=== PATIENT | female | born 1995 | race Caucasian/White ===

== ENCOUNTER 2018-05-15 14:00 | Inpatient (IN) | payer OTHER ==
[~2018-05-15] VITALS: Ht 165.1 cm; Wt 77.1 kg
[2018-05-15] MEDS ORDERED: UNOBMED (14:15)
[2018-05-15 14:20] VITALS: BP_SYST 111; BP_SYST 142; BP_DIAS 49; BP_DIAS 58
--- NOTE | 2018-05-15 14:20 | NUR ---
ED Nurse Note: BROUGHT IN BY PT'S AUNT DUE TO OPEN WOUND ON LEFT AXILLARY- PER PT, SHE WAS SENT BY HER FOR PRE OP SURGERY SCHEDULED T[place]OR[place] AT [facility]. A/OX4. DRESSING WAS ALREADY APPLIED AT THE LEFT AXILLARY.
--- NOTE | 2018-05-15 14:55 | Emergency Room Report ---
History of Present Illness General Chief Complaint: General Complaint Source: Patient Present Illness HPI 22-year-old female presenting with left arm abscess. She has struggled with hidradenitis superior T5 for the last 2 years. She's had 3 surgeries, all have been outpatient with the mother plastic surgeon. She saw who recommended surgery. She has already finished courses of antibiotics in the past, nothing has worked. She takes oxycodone at home which has not been helping with the pain. No fever no chills. She has a history of Crohn's disease. Allergies: Coded Allergies: AZATHIOPRINE (Verified Allergy, Unknown, 05/15/18) DOCUSATE (Verified Allergy, Unknown, 05/15/18) ok for oral LATEX (Verified Allergy, Unknown, 05/15/18) VANCOMYCIN (Verified Allergy, Unknown, 05/15/18) Uncoded Allergies: IODINE CONTRAST (Allergy, Unknown, 05/15/18) TAPE (Allergy, Unknown, 05/15/18) Patient History Past Medical History: see triage record Past Surgical History: none, other - bowel resection, incision and drainages Pertinent Family History: none Last Menstrual Period: 04/16/18 Immunizations: UTD Reviewed Nursing Documentation: PMH: Agreed; PSxH: Agreed Nursing Documentation-PMH Past Medical History: No History, Except For Review of Systems All Other Systems: negative except mentioned in HPI Physical Exam Vital Signs Date Time Temp Pulse Resp B/P (MAP) Pulse Ox O2 Delivery O2 Flow Rate FiO2 05/15/18 14:11 98.2 98 18 106/72 96 Room Air Sp02 EP Interpretation: reviewed, normal General Appearance: alert, GCS 15, non-toxic, moderate distress Head: normocephalic, atraumatic Eyes: bilateral eye normal inspection, bilateral eye PERRL, bilateral eye EOMI ENT: normal ENT inspection, normal pharynx, normal voice, moist mucus membranes Neck: normal inspection, full range of motion, supple Respiratory: normal inspection, lungs clear, normal breath sounds, no respiratory distress, no retraction, no wheezing, speaking full sentences, chest symmetrical Cardiovascular #1: normal inspection, regular rate, rhythm, no edema, normal capillary refill Cardiovascular #2: 2+ radial (R), 2+ radial (L) Gastrointestinal: normal inspection, non tender, soft, non-distended, no guarding Musculoskeletal: normal inspection, back normal, normal range of motion, non- tender Neurologic: normal inspection, alert, oriented x3, responsive, motor strength/ tone normal, sensory intact, normal gait, speech normal Psychiatric: normal inspection, judgement/insight normal, memory normal Skin: normal color, warm/dry, well hydrated, normal turgor, other - Under left arm their notes to be erythema, induration, some drainage Medical Decision Making Diagnostic Impression: Primary Impression: Hidradenitis suppurativa of left axilla ER Course 22-year-old female with hidradenitis suppurativa here for pain Patient will be getting surgery tomorrow Plan: Obtain labs, ua, EKG, CXR Pain control ER course: Patient has been monitored during ED stay, HD stable Disposition: Patient is to be admitted to [facility] D/W hospitalist Dr Alonso covering for Dr Cabrera Please note that this Emergency Department Report was dictated using [employer] worker technology software, occasionally this can lead to erroneous entry secondary to interpretation by the dictation equipment. Rhythm Strip EP Interpretation: Yes Rate: 80 Rhythm: NSR, no PVCs, no ectopy Laboratory Tests Test 05/15/18 14:35 White Blood Count 10.2 K/UL (4.8-10.8) Red Blood Count 5.00 M/UL (4.20-5.40) Hemoglobin 14.2 G/DL (12.0-16.0) Hematocrit 43.4 % (37.0-47.0) Mean Corpuscular Volume 87 FL (80-99) Mean Corpuscular Hemoglobin 28.4 PG (27.0-31.0) Mean Corpuscular Hemoglobin Concent 32.8 G/DL (32.0-36.0) Red Cell Distribution Width 12.4 % (11.6-14.8) Platelet Count 312 K/UL (150-450) Mean Platelet Volume 6.2 FL (6.5-10.1) L Neutrophils (%) (Auto) 59.8 % (45.0-75.0) Lymphocytes (%) (Auto) 33.0 % (20.0-45.0) Monocytes (%) (Auto) 6.0 % (1.0-10.0) Eosinophils (%) (Auto) 0.5 % (0.0-3.0) Basophils (%) (Auto) 0.8 % (0.0-2.0) Prothrombin Time 10.7 SEC (9.30-11.50) Prothrombin Time INR 1.0 (0.9-1.1) PTT 29 SEC (23-33) Urine Color Yellow Urine Appearance Cloudy Urine pH 5 (4.5-8.0) Urine Specific [place] 1.025 (1.005-1.035) Urine Protein 1+ (NEGATIVE) H Urine Glucose (UA) Negative (NEGATIVE) Urine Ketones Negative (NEGATIVE) Urine Blood 3+ (NEGATIVE) H Urine Nitrite Negative (NEGATIVE) Urine Bilirubin Negative (NEGATIVE) Urine Urobilinogen Normal MG/DL (0.0-1.0) Urine Leukocyte Esterase 2+ (NEGATIVE) H Urine RBC 10-15 /HPF (0 - 2) H Urine WBC 2-4 /HPF (0 - 2) Urine Squamous Epithelial Cells Many /LPF (NONE/OCC) H Urine Bacteria Many /HPF (NONE) H Urine HCG, Qualitative Negative (NEGATIVE) Sodium Level 138 MMOL/L (136-145) Potassium Level 3.9 MMOL/L (3.5-5.1) Chloride Level 103 MMOL/L (98-107) Carbon Dioxide Level 25 MMOL/L (21-32) Anion Gap 10 mmol/L (5-15) Blood Urea Nitrogen 15 mg/dL (7-18) Creatinine 1.0 MG/DL (0.55-1.30) Estimate Glomerular Filtration Rate > 60 mL/min (>60) Glucose Level 116 MG/DL (74-106) H Calcium Level 8.8 MG/DL (8.5-10.1) Total Bilirubin 0.4 MG/DL (0.2-1.0) Aspartate Amino Transferase (AST) 11 U/L (15-37) L Alanine Aminotransferase (ALT) 18 U/L (12-78) Alkaline Phosphatase 65 U/L (46-116) Total Protein 7.6 G/DL (6.4-8.2) Albumin 3.5 G/DL (3.4-5.0) Globulin 4.1 g/dL Albumin/Globulin Ratio 0.9 (1.0-2.7) L Lipase 115 U/L (73-393) Last Vital Signs Date Time Temp Pulse Resp B/P (MAP) Pulse Ox O2 Delivery O2 Flow Rate FiO2 05/15/18 14:20 102 24 Room Air 05/15/18 14:11 98.2 106/72 96 Disposition: ADMITTED INPATIENT Condition: Stable Carly Fontanez M.D. May 15, 2018 14:55
[2018-05-15 14:56] LABS: BASOPHILS % (AUTO) 0.8 % (0.0-2.0); EOSINOPHILS % (AUTO) 0.5 % (0.0-3.0); HEMATOCRIT 43.4 % (37.0-47.0); HEMOGLOBIN 14.2 G/DL (12.0-16.0); MEAN CORPUSCULAR VOLUME 87 FL (80-99); NEUTROPHILS % (AUTO) 59.8 % (45.0-75.0); PLATELET COUNT 312 K/UL (150-450); RED CELL DISTRIBUTION WIDTH 12.4 % (11.6-14.8); WHITE BLOOD COUNT 10.2 K/UL (4.8-10.8)
[2018-05-15 14:57] LABS: APPEARANCE,URINE CLOUDY; BILIRUBIN, URINE NEGATIVE (NEGATIVE); GLUCOSE, URINE (UA) NEGATIVE (NEGATIVE); KETONES,URINE NEGATIVE (NEGATIVE); LEUKOCYTE ESTERASE ,URINE 2+ (NEGATIVE); NITRITE,URINE NEGATIVE (NEGATIVE); PH,URINE 5 (4.5-8.0); PROTEIN,URINE 1+ (NEGATIVE); UROBILINOGEN,URINE NORMAL MG/DL (0.0-1.0)
[2018-05-15 14:58] LABS: COLOR,URINE YELLOW
[2018-05-15] MEDS ORDERED: Morphine Sulfate 4mg/ml Inj (IV USE ONLY) IVP ONE (15:00)
[2018-05-15 15:05] LABS: ANION GAP 10 mmol/L (5-15); BLOOD UREA NITROGEN 15 mg/dL (7-18); CALCIUM 8.8 MG/DL (8.5-10.1); CARBON DIOXIDE 25 MMOL/L (21-32); CHLORIDE 103 MMOL/L (98-107); POTASSIUM 3.9 MMOL/L (3.5-5.1); SODIUM 138 MMOL/L (136-145)
--- NOTE | 2018-05-15 15:09 | NUR ---
ED Nurse Note: CROW, PT'S AUNT, CAMILLE, FATHER, JULIA, MOM- [phone]
--- NOTE | 2018-05-15 15:12 | NUR ---
ED Nurse Note: RECEIVED A MEDICATION CONTAINTER FROM PT, HAL, WITH DIFFERENT NAME ON THE LABEL. PER PT, IT'S HER GRANDPA'S MEDICATION AND SHE'S BEEN TAKING 1.5TABLETS PER DAY FOR PAIN PRN. SEALED IN THE PHARMACY SECURITY BAG AND TURNED IN TO PHARMACY.
[2018-05-15 15:16] LABS: ALANINE AMINOTRANSFERASE 18 U/L (12-78); ALBUMIN 3.5 G/DL (3.4-5.0); ALBUMIN/GLOBULIN RATIO 0.9 (1.0-2.7); ALKALINE PHOSPHATASE 65 U/L (46-116); ASPARTATE AMINO TRANSFERASE 11 U/L (15-37); BILIRUBIN,TOTAL 0.4 MG/DL (0.2-1.0)
--- NOTE | 2018-05-15 15:18 | NUR ---
ED Nurse Note: COUNTED WITH RAND NARAYAN, TOTAL OF 18.5TABLETS IN THE CONTAINER. TURNED IN TO PHARMACY. RECEIPT IN THE PT'S CHART.
--- NOTE | 2018-05-15 16:07 | NUR ---
ED Nurse Note: TELEPHONE REPORT GIVEN TO LIA RICO FROM 3E.
[2018-05-15 16:36] VITALS: BP 100/52
--- NOTE | 2018-05-15 16:38 | NUR ---
TRANSFER TO FLOOR: Patient transferred to #[id number] via wheelchair with LIA Hernandez as ordered. Report given to LIA Reyna. Belongings given to pt. Family and or S/O informed of transfer. No s/s of distress. A/Ox4.
--- NOTE | 2018-05-15 17:00 | NUR ---
NURSE NOTES: PATIENT RECEIVED FROM ER [place]IA [place]. AOX4. BELONGINGS CHECKED AT BEDSIDE. PATIENT AMBULATORY. GAIT STEADY. QUESTIONS ANSWERED NEEDS MET.DISCUSSED PLAN OF CARE FOR THE DAY. VERBALIZED UNDERSTANDING. PT ORIENTED TO ROOM. LEFT AXILLA AREA ASSESSED; DRSG PLACED BY DR. BUSTOS. ADMITTING ORDERS RECEIVED BY DR. RODRIGUEZ AND SEEN BY DR. RODRIGUEZ.
[2018-05-15] MEDS ORDERED: Hydromorphone 0.5mg/0.5ml inj IVP SCH (17:37)
--- NOTE | 2018-05-15 17:54 | History and Physical ---
History of Present Illness General Date patient seen: May 15, 2018 Reason for Hospitalization: wound infection Present Illness HPI 22 year old female with PMH of Crohns disease on remicade (Next dose 05/21/18), anxiety and hidradenitis suppurativa presents with pain in L axilla region with open wound with drainage. Pt states she has had 3 procedures since 12/2017 for hidradenitis of L axilla with Dr. Larios at [facility], last procedure was about 1 month ago where wound was left open. States she has been having increased pain in the area and has noticed green discharge for past 2 weeks. Pt completed course of PO antibiotics without improvements, therefore presented to ED for evaluation. Allergies: Coded Allergies: AZATHIOPRINE (Verified Allergy, Unknown, 05/15/18) DOCUSATE (Verified Allergy, Unknown, 05/15/18) ok for oral LATEX (Verified Allergy, Unknown, 05/15/18) VANCOMYCIN (Verified Allergy, Unknown, 05/15/18) Uncoded Allergies: IODINE CONTRAST (Allergy, Unknown, 05/15/18) TAPE (Allergy, Unknown, 05/15/18) Medication History Miscellaneous Medications Unable to Obtain Medications (Unable To Obtain Meds), (Reported) Patient History History Provided By: Patient Healthcare decision maker Resuscitation status Advanced Directive on File Review of Systems Constitutional: Reports: no symptoms Eye: Reports: no symptoms ENT: Reports: no symptoms Respiratory: Reports: no symptoms Cardiovascular: Reports: no symptoms Gastrointestinal: Reports: no symptoms Genitourinary: Reports: no symptoms Musculoskeletal: Reports: other - pain and drainage from left axilla Skin: Reports: other - open wound on left axcilla Psychiatric: Reports: no symptoms Neurological: Reports: no symptoms Endocrine: Reports: no symptoms Hematologic/Lymphatic: Reports: no symptoms Physical Exam General Appearance: WD/WN, no apparent distress, alert Lines, tubes and drains: peripheral HEENT: normocephalic, atraumatic, anicteric Neck: non-tender, normal alignment, supple Respiratory/Chest: chest wall non-tender, lungs clear, normal breath sounds, no respiratory distress Cardiovascular/Chest: normal peripheral pulses, normal rate, regular rhythm Abdomen: normal bowel sounds, non tender, soft, no organomegaly Extremities: normal range of motion, non-tender, normal inspection, no calf tenderness Skin Exam: normal pigmentation, warm/dry, other - Left axcilla with open wound about 2.5inch x 0.5in, erythematous, tender to touch, discharge present Neurologic: satellite specialist II-XII grossly normal Musculoskeletal: normal muscle bulk Last 24 Hour Vital Signs Date Time Temp Pulse Resp B/P (MAP) Pulse Ox O2 Delivery O2 Flow Rate FiO2 05/15/18 16:37 98.3 67 20 100/51 99 Room Air 05/15/18 16:36 98.3 67 20 100/52 99 Room Air 05/15/18 15:33 98.3 05/15/18 14:20 102 24 Room Air 05/15/18 14:20 98.2 81 14 111/58 100 Room Air 05/15/18 14:11 98.2 98 18 106/72 96 Room Air Laboratory Tests Test 05/15/18 14:35 White Blood Count 10.2 K/UL (4.8-10.8) Red Blood Count 5.00 M/UL (4.20-5.40) Hemoglobin 14.2 G/DL (12.0-16.0) Hematocrit 43.4 % (37.0-47.0) Mean Corpuscular Volume 87 FL (80-99) Mean Corpuscular Hemoglobin 28.4 PG (27.0-31.0) Mean Corpuscular Hemoglobin Concent 32.8 G/DL (32.0-36.0) Red Cell Distribution Width 12.4 % (11.6-14.8) Platelet Count 312 K/UL (150-450) Mean Platelet Volume 6.2 FL (6.5-10.1) L Neutrophils (%) (Auto) 59.8 % (45.0-75.0) Lymphocytes (%) (Auto) 33.0 % (20.0-45.0) Monocytes (%) (Auto) 6.0 % (1.0-10.0) Eosinophils (%) (Auto) 0.5 % (0.0-3.0) Basophils (%) (Auto) 0.8 % (0.0-2.0) Prothrombin Time 10.7 SEC (9.30-11.50) Prothromb Time International Ratio 1.0 (0.9-1.1) Activated Partial Thromboplast Time 29 SEC (23-33) Urine Color Yellow Urine Appearance Cloudy Urine pH 5 (4.5-8.0) Urine Specific [place] 1.025 (1.005-1.035) Urine Protein 1+ (NEGATIVE) H Urine Glucose (UA) Negative (NEGATIVE) Urine Ketones Negative (NEGATIVE) Urine Blood 3+ (NEGATIVE) H Urine Nitrite Negative (NEGATIVE) Urine Bilirubin Negative (NEGATIVE) Urine Urobilinogen Normal MG/DL (0.0-1.0) Urine Leukocyte Esterase 2+ (NEGATIVE) H Urine RBC 10-15 /HPF (0 - 2) H Urine WBC 2-4 /HPF (0 - 2) Urine Squamous Epithelial Cells Many /LPF (NONE/OCC) H Urine Bacteria Many /HPF (NONE) H Urine HCG, Qualitative Negative (NEGATIVE) Sodium Level 138 MMOL/L (136-145) Potassium Level 3.9 MMOL/L (3.5-5.1) Chloride Level 103 MMOL/L (98-107) Carbon Dioxide Level 25 MMOL/L (21-32) Anion Gap 10 mmol/L (5-15) Blood Urea Nitrogen 15 mg/dL (7-18) Creatinine 1.0 MG/DL (0.55-1.30) Estimat Glomerular Filtration Rate > 60 mL/min (>60) Glucose Level 116 MG/DL (74-106) H Calcium Level 8.8 MG/DL (8.5-10.1) Total Bilirubin 0.4 MG/DL (0.2-1.0) Aspartate Amino Transf (AST/SGOT) 11 U/L (15-37) L Alanine Aminotransferase (ALT/SGPT) 18 U/L (12-78) Alkaline Phosphatase 65 U/L (46-116) Total Protein 7.6 G/DL (6.4-8.2) Albumin 3.5 G/DL (3.4-5.0) Globulin 4.1 g/dL Albumin/Globulin Ratio 0.9 (1.0-2.7) L Lipase 115 U/L (73-393) Height (Feet): 5 Height (Inches): 5.50 Weight (Pounds): 170 Medications Current Medications Medications (Trade) Dose Ordered Sig/Alix Route PRN Reason Start Time Stop Time Status Last Admin Dose Admin Hydromorphone HCl (Dilaudid) 0.5 mg ONCE IVP 05/15/18 17:37 05/15/18 19:00 05/15/18 17:47 Assessment/Plan Status: stable Assessment/Plan 22 year old female with PMH of Crohns disease on remicade (Next dose 05/21/18), anxiety and hidradenitis suppurativa presents with pain in L axilla region with open wound with drainage. #Hidradenitis suppurative on L axilla s/p surgery at OSH with open wound #Possible wound infection/abscess of above -will consult plastic surgery (Dr. Brambila) for evaluation -Start IV Ancef 1gr Q8hrs -Blood cultures -Pain management -NPO MN for possible procedure in AM Medical clearance for possible surgical intervention for hidradenitis Based on the patient's medical history, and other available ancillary data, the patient is a LOW risk for an INTERMEDIATE risk procedure. Per the most recent ACC/AHA guidelines, the patient does not need any further cardiopulmonary testing prior to the procedure and there do not appear to be any clear medical contraindications to proceeding with the proposed procedure. Perioperative recommendations include IV Ancef 1gIVPB diamond picker to the OR. Post operative recommendations include: - Encourage mobilization/ambulation - Encourage incentive spirometry to optimize pulmonary hygiene - DVT/GI prophylaxis as appropriate - Pain control and supportive care #Crohns disease -on remicade - next dose 05/21/18 -no signs of acute flare -CTM #Anxiety -home meds restarted Code status Full I spent 75 min on this patients care, and 40 min was dedicated to counseling and /or care coordination Celeste Jeronimo MD May 15, 2018 17:54
[2018-05-15] MEDS ORDERED: Milk of Magnesia 30ml Ud ORAL PRN (18:15)
[2018-05-15] MEDS ORDERED: Hydromorphone 0.5mg/0.5ml inj IVP PRN ×2 (18:15→18:30)
[2018-05-15] MEDS ORDERED: HYDROmorphone 1mg/ml Carpuject IVP PRN ×2 (18:15)
[2018-05-15] MEDS ORDERED: HYDROmorphone 1mg/NS 50ml IVPB 50 ML IVPB PRN (18:15)
--- NOTE | 2018-05-15 18:22 | NUR ---
CASE MANAGEMENT: INITIAL REVIEW 22 YO F PRESENTED TO OUR ED FROM HOME CC: OPEN WOUND LEFT ARMPIT PMHx: HIDRADENITIS. SI:HIDRADENITIS. T 98.2 HR 98 RR 18 B/P 106/72 SATS 96% ON RA GLU 116 AST 11 IS: MORPHINE IV X1 PATIENT ADMITTED TO MED/SURG 05/15/2018 @ 1536 DCP: PATIENT TO BE DISCHARGED TO HOME ONCE MEDICALLY CLEARED. PLAN OF CARE: - Encourage mobilization/ambulation - Encourage incentive spirometry to optimize pulmonary hygiene - DVT/GI prophylaxis as appropriate - Pain control and supportive care Addendum: 05/15/18 at 1936 by Cece Carter CM INTERQUAL
--- NOTE | 2018-05-15 19:17 | NUR ---
HAND-OFF: Report given to KATE GRAY.
--- NOTE | 2018-05-15 19:20 | NUR ---
NURSE NOTES: Report taken from LIA Madrigal. Patient awake and in bed, A&Ox4. No signs of distress on room. Patient is concerned with the upcoming procedure, RN spoke to her about the events leading up to surgery. Dad will be spending the night with her. NPO at midnight. Operative site covered with dry 4x4 and paper tape, keep on until procedure per MD. IV site c/d/i and patent, 20g, running IVF and antibiotic cycle. Continue to monitor, bed in lowest position, call light within reach.
[2018-05-15 20:00] VITALS: BP 128/71
[2018-05-15] MEDS: ceFAZolin sod 1 GM in D5W 55 ML IVPB SCH (21:57)
[2018-05-16] VITALS (17 sets, daily range): BP systolic 98–120; BP diastolic 58–69
[2018-05-16] MEDS: ceFAZolin sod 1 GM in D5W 55 ML IVPB SCH ×2 (06:25→14:14)
[2018-05-16 07:21] LABS: BASOPHILS % (AUTO) 0.9 % (0.0-2.0); EOSINOPHILS % (AUTO) 0.7 % (0.0-3.0); HEMATOCRIT 37.7 % (37.0-47.0); HEMOGLOBIN 12.2 G/DL (12.0-16.0); LYMPHOCYTES % (AUTO) 37.2 % (20.0-45.0); MEAN CORPUSCULAR VOLUME 88 FL (80-99); MONOCYTES % (AUTO) 9.5 % (1.0-10.0); NEUTROPHILS % (AUTO) 51.7 % (45.0-75.0); PLATELET COUNT 255 K/UL (150-450); RED BLOOD COUNT 4.31 M/UL (4.20-5.40); RED CELL DISTRIBUTION WIDTH 12.7 % (11.6-14.8); WHITE BLOOD COUNT 9.1 K/UL (4.8-10.8)
--- NOTE | 2018-05-16 07:30 | NUR ---
NURSE NOTES: Patient is in bed awake and able to verbalize needs. Patient is stable and denies SOB at this time. Patient complains of 7/10 pain, will administer medicine as ordered. Plan of care discussed with patient, verbalized understanding. Patient is in good spirits.
--- NOTE | 2018-05-16 07:31 | NUR ---
HAND-OFF: Report given to LIA Gil. Patient in stable condition, consent for procedure signed.
[2018-05-16 07:50] LABS: ANION GAP 8 mmol/L (5-15); BLOOD UREA NITROGEN 14 mg/dL (7-18); CALCIUM 8.7 MG/DL (8.5-10.1); CARBON DIOXIDE 26 MMOL/L (21-32); CHLORIDE 105 MMOL/L (98-107); CREATININE 0.8 MG/DL (0.55-1.30); POTASSIUM 4.5 MMOL/L (3.5-5.1); SODIUM 139 MMOL/L (136-145)
--- NOTE | 2018-05-16 08:53 | NUR ---
CASE MANAGEMENT:REVIEW 05/16/18 SI: HIDRADENITIS SUPPURATIVE LT AXILLA POSSIBLE WOUND INFECTION 98.1 76 18 102/69 99% ON RA PHOS+5.0 IS: IV ANCEF Q8HRS IVF@75/HR IV DILAUDID Q4HRS PRN : MED/SURG STATUS 3 EAST PLAN: FOLLOW PENDING BLOOD CULTURE IV ANTIBIOTICS
[2018-05-16] MEDS: ARIPiprazole 2mg tab ORAL SCH (09:00)
[2018-05-16] MEDS ORDERED: Bacitracin 50000 Units Vial ONE (09:42)
[2018-05-16] MEDS ORDERED: Lidocaine 1% 10mg/ml/Epi 0.005mg/ml 30ml vial INJ ONE (09:42)
[2018-05-16] MEDS ORDERED: NS Irrig 1000ml ONE (10:00)
[2018-05-16] MEDS ORDERED: Propofol 1,000mg/ 100ml btl IV ONE (10:00)
[2018-05-16] MEDS ORDERED: Sterile Water Irrig 1000ml IRRIG ONE (10:00)
[2018-05-16] MEDS ORDERED: Zolpidem 5mg tab ORAL PRN ×2 (10:00→12:45)
[2018-05-16] MEDS ORDERED: Neostigmine 1mg/ml 10ml Inj ONE (10:00)
[2018-05-16] MEDS ORDERED: LR 1000ml ONE (10:00)
--- NOTE | 2018-05-16 10:00 | Pre-Procedure Note/Attestation ---
Pre-Procedure Note/Attestation Complete Prior to Procedure Planned Procedure: left Procedure Narrative: Left axillary tissue excision and chest wall flap elevation Attestation I attest that I discussed the nature of the procedure; its benefits; risks and complications; and alternatives (and the risks and benefits of such alternatives ), prior to the procedure, with the patient (or the patient's legal claim service representative). I attest that, if there was a reasonable possibility of needing a blood transfusion, the patient (or the patient's legal claim service representative) was given the [facility] standardized written summary, pursuant to the [place] Blood Safety Act ([place] Health and Safety Code # 1645, as amended). I attest that I re-evaluated the patient just prior to the surgery and that there has been no change in the patient's H&P, except as documented below: Sagar Brambila MD May 16, 2018 10:00
--- NOTE | 2018-05-16 10:00 | NUR ---
NURSE NOTES: Patient taken to surgery. Stable with no s/s acute distress. Denies pain and SOB.
[2018-05-16] MEDS ORDERED: Lidocaine 1% Plain 30 ml INJ ONE (10:01)
[2018-05-16] MEDS ORDERED: LR 1000ml 1,000 ML IVLG SCH (10:04)
--- NOTE | 2018-05-16 10:06 | Anethesia Preoperative Eval ---
Anesthesia Pre-op PMH/ROS General Date of Evaluation: May 16, 2018 Time of Evaluation: 10:11 Anesthesiologist: Qasim ASA Score: ASA 2 Mallampati Score Class I : Soft palate, uvula, fauces, pillars visible Class II: Soft palate, uvula, fauces visible Class III: Soft palate, base of uvula visible Class IV: Only hard plate visible Mallampati Classification: Class II Surgeon: Patty Diagnosis: Hidradenitis Bilateral Axilla Surgical Procedure: L Axilla Debridement with Flap Anesthesia History: none Family History: no anesthesia problems Allergies: Coded Allergies: AZATHIOPRINE (Verified Allergy, Unknown, 05/15/18) DOCUSATE (Verified Allergy, Unknown, 05/15/18) ok for oral LATEX (Verified Allergy, Unknown, 05/15/18) VANCOMYCIN (Verified Allergy, Unknown, 05/15/18) BISACODYL (Verified Adverse Reaction, Severe, Rash, 05/15/18) Uncoded Allergies: IODINE CONTRAST (Allergy, Unknown, 05/15/18) TAPE (Allergy, Unknown, 05/15/18) Medications: see eMAR Patient NPO?: Yes NPO Date: May 16, 2018 NPO Time: 0000 Past Medical History Gastrointestinal/Genitourinary: Reports: other - Crohns Disease PSxH Narrative: Bowel Resection Anesthesia Pre-op Phys. Exam Physician Exam Last Vital Signs Date Time Temp Pulse Resp B/P (MAP) Pulse Ox O2 Delivery O2 Flow Rate FiO2 05/16/18 04:00 98.1 76 18 102/69 (80) 99 05/15/18 16:37 Room Air Constitutional: NAD Neurologic: CN 2-12 intact Cardiovascular: RRR Respiratory: CTA Gastrointestinal: S/NT/ND Airway Exam Mallampati Score: Class II MO: full ROM: full Teeth: intact Anesthesia Pre-op A/P Labs Hematology Test 05/15/18 14:35 05/16/18 06:40 White Blood Count 10.2 K/UL (4.8-10.8) 9.1 K/UL (4.8-10.8) Red Blood Count 5.00 M/UL (4.20-5.40) 4.31 M/UL (4.20-5.40) Hemoglobin 14.2 G/DL (12.0-16.0) 12.2 G/DL (12.0-16.0) Hematocrit 43.4 % (37.0-47.0) 37.7 % (37.0-47.0) Mean Corpuscular Volume 87 FL (80-99) 88 FL (80-99) Mean Corpuscular Hemoglobin 28.4 PG (27.0-31.0) 28.3 PG (27.0-31.0) Mean Corpuscular Hemoglobin Concent 32.8 G/DL (32.0-36.0) 32.4 G/DL (32.0-36.0) Red Cell Distribution Width 12.4 % (11.6-14.8) 12.7 % (11.6-14.8) Platelet Count 312 K/UL (150-450) 255 K/UL (150-450) Mean Platelet Volume 6.2 FL (6.5-10.1) L 6.2 FL (6.5-10.1) L Neutrophils (%) (Auto) 59.8 % (45.0-75.0) 51.7 % (45.0-75.0) Lymphocytes (%) (Auto) 33.0 % (20.0-45.0) 37.2 % (20.0-45.0) Monocytes (%) (Auto) 6.0 % (1.0-10.0) 9.5 % (1.0-10.0) Eosinophils (%) (Auto) 0.5 % (0.0-3.0) 0.7 % (0.0-3.0) Basophils (%) (Auto) 0.8 % (0.0-2.0) 0.9 % (0.0-2.0) Coagulation Test 05/15/18 14:35 Prothrombin Time 10.7 SEC (9.30-11.50) Prothromb Time International Ratio 1.0 (0.9-1.1) Activated Partial Thromboplast Time 29 SEC (23-33) Chemistry Test 05/15/18 14:35 05/16/18 06:40 Sodium Level 138 MMOL/L (136-145) 139 MMOL/L (136-145) Potassium Level 3.9 MMOL/L (3.5-5.1) 4.5 MMOL/L (3.5-5.1) Chloride Level 103 MMOL/L (98-107) 105 MMOL/L (98-107) Carbon Dioxide Level 25 MMOL/L (21-32) 26 MMOL/L (21-32) Anion Gap 10 mmol/L (5-15) 8 mmol/L (5-15) Blood Urea Nitrogen 15 mg/dL (7-18) 14 mg/dL (7-18) Creatinine 1.0 MG/DL (0.55-1.30) 0.8 MG/DL (0.55-1.30) Estimat Glomerular Filtration Rate > 60 mL/min (>60) > 60 mL/min (>60) Glucose Level 116 MG/DL (74-106) H 94 MG/DL (74-106) Calcium Level 8.8 MG/DL (8.5-10.1) 8.7 MG/DL (8.5-10.1) Total Bilirubin 0.4 MG/DL (0.2-1.0) Aspartate Amino Transf (AST/SGOT) 11 U/L (15-37) L Alanine Aminotransferase (ALT/SGPT) 18 U/L (12-78) Alkaline Phosphatase 65 U/L (46-116) Total Protein 7.6 G/DL (6.4-8.2) Albumin 3.5 G/DL (3.4-5.0) Globulin 4.1 g/dL Albumin/Globulin Ratio 0.9 (1.0-2.7) L Lipase 115 U/L (73-393) Phosphorus Level 5.0 MG/DL (2.5-4.9) H Magnesium Level 1.8 MG/DL (1.8-2.4) Urine Test Test 05/15/18 14:35 Urine HCG, Qualitative Negative (NEGATIVE) Risk Assessment & Plan Assessment: ASA 2 Plan: GA, SED, GlideScope Go Status Change Before Surgery: No Pre-Antibiotics Dru Gram Ancef IV Given Within 1 Hr of Incision: Yes Time Given: 10:31 Jadon Tripp MD May 16, 2018 10:06
[2018-05-16] MEDS ORDERED: Sodium Chloride 10ml vial INJ ONE (10:11)
[2018-05-16] MEDS ORDERED: Dexamethasone 4mg/ml vial ONE (10:11)
[2018-05-16] MEDS ORDERED: Lidocaine 1% MPF 10mg/ml 5ml ONE (10:11)
[2018-05-16] MEDS ORDERED: DiphenhydrAMINE 50mg/ml Inj IVP PRN (10:15)
[2018-05-16] MEDS ORDERED: Meperidine 50mg/ml Inj(FOR RIGORS ONLY) IVP PRN (10:15)
[2018-05-16] MEDS ORDERED: Midazolam 2mg/2ml Inj IVP PRN (10:15)
[2018-05-16] MEDS ORDERED: HYDROcodone/Acetamin 7.5/325 tab ORAL PRN (10:15)
[2018-05-16] MEDS ORDERED: Hydromorphone 0.5mg/0.5ml inj IVP PRN (10:15)
[2018-05-16] MEDS ORDERED: fentaNYL 100 mcg/2 mL IV ONE (10:15)
[2018-05-16] MEDS ORDERED: Acetaminophen (Non formulary) 100 ML IV ONE (10:15)
[2018-05-16] MEDS ORDERED: LORazepam Inj 2mg/ml 1ml IV PRN (10:15)
[2018-05-16] MEDS ORDERED: oxyCODONE HCL/Acetaminophen 5/325mg ORAL PRN (10:15)
[2018-05-16] MEDS ORDERED: HYDROcodone/Acetamin 5/325 tab ORAL PRN (10:15)
[2018-05-16] MEDS ORDERED: Atropine Sulfate 0.4mg/ml inj IVP PRN (10:15)
[2018-05-16] MEDS ORDERED: fentaNYL 100 mcg/2 mL IV PRN (10:15)
[2018-05-16] MEDS ORDERED: Labetalol 5mg/ml 20ml vial IV PRN (10:15)
--- NOTE | 2018-05-16 10:54 | Immediate Post-Op Evaluation ---
Immediate Post-Op Evalulation Immediate Post-Op Evalulation Procedure: L Axilla Debridement with Flap Date of Evaluation: May 16, 2018 Time of Evaluation: 12:04 IV Fluids: 500 LR Blood Products: 0 Estimated Blood Loss: 50 Urinary Output: 0 Blood Pressure Systolic: 122 Blood Pressure Diastolic: 81 Pulse Rate: 107 Respiratory Rate: 16 O2 Sat by Pulse Oximetry: 100 Temperature (Fahrenheit): 97.8 Pain Score (1-10): 3 Nausea: No Vomiting: No Complications 0 Patient Status: awake, reacts, patent, extubated, none Hydration Status: adequate Dru Gram Ancef IV Given Within 1 Hr of Incision: Yes Time Given: 10:31 Jadon Tripp MD May 16, 2018 10:54
[2018-05-16] MEDS ORDERED: NS Irrig 1000ml IRRIG ONE (11:09)
[2018-05-16] MEDS ORDERED: Surgicel 4in x 8in TOPIC ONE (11:11)
[2018-05-16] MEDS ORDERED: Glycopyrrolate 0.2mg/ml 1ml Vial ONE (11:23)
[2018-05-16] MEDS ORDERED: Naloxone 0.4mg/ml Inj ONE (11:31)
--- NOTE | 2018-05-16 11:38 | Operative Note - PDOC ---
Operative Note Operative Note Procedure: Left axillary tissue excision and flap elevation Post-op Diagnosis: same as pre-op Surgeon: Patty Strip Roller: Ava Anesthesia: general Specimen: yes Complications: none Condition: stable Estimated Blood Loss: none Drains: none Implant(s) used?: No Sagar Brambila MD May 16, 2018 11:38
[2018-05-16] MEDS ORDERED: PCA HYDROmorphone 1mg/ml 30 ML IV PRN (12:00)
[2018-05-16] MEDS ORDERED: Rate Change PCA 1 Each MISC PRN (12:00)
[2018-05-16] MEDS ORDERED: PCA HYDROmorphone 1mg/ml 30 ML IV ONE (12:03)
--- NOTE | 2018-05-16 13:22 | NUR ---
*-* INSURANCE *-* ALL CLINICALS , REVIEW AND INTERQUAL HAVE BEEN FAXED TO: KAREN ESCOBAR: LYNETTE Yeung P- [phone] f- [phone]
--- NOTE | 2018-05-16 13:45 | NUR ---
NURSE NOTES: Patient in bed, stable with no s/s acute distress. Patient complains of pain and instructed how to use HOSPITAL LABORATORY TECHNICIAN, verbalized understanding. Patient encouraged to use call light for assistance, verbalized understanding. Patient in bed with call light within reach, will continue to monitor.
[2018-05-16] MEDS: PCA Education Pamphlet MISC SCH (14:00)
--- NOTE | 2018-05-16 14:56 | Cardiology Report ---
APPROVED REPORT EKG Measurement Heart [id number] ID [id number] Sinus rhythm with sinus arrhythmia with short ID Otherwise normal ECG
--- NOTE | 2018-05-16 17:15 | Consultation ---
DATE OF CONSULTATION: 05/16/2018 CONSULTING PHYSICIAN: Sagar Brambila M.D. ADMITTING PHYSICIAN: Dr. Mary Cabrera HISTORY OF PRESENT ILLNESS: This is a 22-year-old female with a history of Crohn disease on medication including Remicade, who also has a history of hidradenitis suppurativa. She has undergone multiple incision and drainage procedures with multiple visits to the emergency room over the past several years and most recently had excision of her hidradenitis in the left axilla with reconstruction which has since failed. She continues to have drainage and pain with what appears to be no improvement in her symptoms. She presented to the emergency room yesterday with a left axillary abscess, which was draining and causing significant tenderness and pain and there has been green discharge to the area over the past several weeks as well. She has completed some antibiotics, however, there was no improvement which is why she presented to the emergency room for evaluation and treatment. ALLERGIES: Include azathioprine, docusate, latex, vancomycin, and iodine contrast as well as tape. MEDICATIONS: Include vancomycin previously, Imuran, Remicade and medications for anxiety. PHYSICAL EXAMINATION: GENERAL: The patient is alert and oriented, in mild discomfort secondary to left axillary pain. HEART: Regular rate and rhythm. ABDOMEN: Soft, nontender, and nondistended. SKIN: Examination of her trunk and left axilla reveals a large open wound with granulation that measured approximately 9 x 4 cm and there is tenderness all around it with greenish discharge emanating from the inferior aspect of the wound. The wound is quite exquisitely tender on palpation. In the right axilla, there is no evidence of open wound, but there do appear to be subcutaneous abscesses consistent with potentially early hidradenitis. LABORATORY DATA: Her white blood cell count is 10.2, hematocrit 43, and platelet count 312. Prothrombin time and INR are 10.7 and 1.0, respectively. ASSESSMENT AND PLAN: This is a 22-year-old female with history of Crohn disease and long-standing hidradenitis, who has failed previous medical management and had several surgeries with continued symptoms of pain and discharge and tenderness, who presented to the emergency room for evaluation of her left axillary abscess. Given the clinical history of the patient's previous surgeries and what appears to be remnant disease, I feel that it is appropriate we proceed with the re-excising the area of disease with wider margins allowing for a better evacuation of the hidradenitis followed by a second stage reconstruction with a lateral chest wall flap. The patient, myself and the mother went over all the specifics of the operation in detail. They understood an alternative option being to do no surgery and allow the wound to heal, but given the fact that she continues to have pain and symptoms of drainage it is likely that she still has remnant hidradenitis, which requires re-excision. Based on this discussion and my recommendation, they agreed to proceed. They understood that it would take several weeks, potentially up to 6 to 8 weeks for the healing to get to a point where she should start feeling more normal. However, I also explained that healing continues up to 1 year and they expressed understanding of this. I also had a lengthy discussion with her inflammatory or IBD Crohns disease doctor who said she is to undergo Remicade infusion on May 21; but given this surgery that she is going to undergo and the associated risk of perioperative infection with Remicade, we agreed that we would wait approximately 7 to 10 days after the completion of the second stage of her reconstruction, before she starts the Remicade infusion. We went over all the details of the operation and she understood the risks and benefits of surgery, including dehiscence, infection and need for reoperation, and she understood again all of this and agreed to proceed. Sagar Brambila M.D. DR: MAICO JOB#: [id number] CC: QUENTIN
--- NOTE | 2018-05-16 18:30 | Operative Note - Dictated ---
DATE OF OPERATION: 05/16/2018 PREOPERATIVE DIAGNOSIS: Left axillary open wound with infected hidradenitis. POSTOPERATIVE DIAGNOSIS: Left axillary open wound with infected hidradenitis. PROCEDURES: 1. Excision of the left axillary hidradenitis , CPT code 05676. 2. Elevation of a fasciocutaneous left lateral chest wall flap for staged closure of left axillary wound, CPT code 96624. SURGEON: Sagar Brambila M.D. MAINTENANCE CHIEF: Enzo Escalante M.D. ANESTHESIA: General. COMPLICATIONS: None. DRAINS: None. DISPOSITION: Stable to the recovery room. INDICATIONS FOR SURGERY: This is a 22-year-old female with an established history of Crohn disease and hidradenitis, who presented to the emergency room last night with significant pain and drainage from the left axilla. She has had multiple incisions and drainages of the area and more recently had some sort of excision and reconstruction, which has failed with wound dehiscence and evidence of persistent disease with constant pain and drainage and more recently has had purulent drainage that was green in color. On my assessment and my exam, I felt that she was a good candidate for a wider excision of the axillary tissue, which would likely be harboring more disease of hidradenitis to which she agreed and understood along with a staged closure with a lateral chest wall flap. The reason for the staging is that we wanted to let any infection clear within a 48-hour period before definitive flap inset in addition to delaying the flap. Delaying the flap means to increase its vascularity after the incisions have bee made around the flap while waiting for the second stage. She understood all the risks and benefits of surgery including recurrence of disease as well as possible wound infection and wound dehiscence and agreed to proceed. DETAILS OF THE OPERATION: The patient was brought to the operating room and laid in the supine position on the operating room table. Her chest, left axilla and left upper arm were prepped and draped in a sterile and usual fashion. The area of the open wound measured approximately 10 x 4 cm. An elliptical type of incision was designed around the area of disease with an approximately 2 cm of circumferential margin. Once this was done, a corresponding left lateral chest wall flap was designed/tailored and was noted to match the defect that would result upon excision of the disease. Once these were confirmed, we proceeded to use a #10 blade to make the skin incision around the left axillary wound dissecting all the way down to the level of the axillary fascia using the electrocautery to remove tissue down to the axillary bed. We were able to remove the area of disease and noted that there was no remaining subcutaneous or deeper level hidradenitis that was noted in the wound bed. This resulted in a defect that measured approximately 11 x 8 cm and was quite large and clearly not amenable to primary closure, which is why we had designed a lateral chest wall flap. Once the defect was noted to be free of visible hidradenitis, we then proceeded to use a #10 blade to make our U-shaped incision over the lateral chest wall flap. The lateral chest wall flap would be based off of perfusion from perforators of the thoracodorsal artery through the latissimus muscle. Once the skin incision was made around the U-shaped incision, dissection was carried down all the way to the level of the latissimus muscle fascia. Once the latissimus muscle fascia was identified, we began raising the fascia over the latissimus muscle with the flap itself from distal to proximal. So, we proceeded to use electrocautery to divide the fascia on the latissimus muscle incorporating it into the U-shaped lateral chest wall flap and elevating the fascia with the flap all the way to the level of the pedicle, which was at the proximal point of the flap. With the fascial flap elevated, we noted that it could be transposed and rotated into the defect without any tension and once this was done, we confirmed that we had enough tissue to be able to replace the tissue removed and reconstruct the defect. But as stated, given the fact that this was an infected wound bed, we felt it would be inappropriate to perform definitive flap transfer at this time. As such, we proceeded to irrigate the area, achieved hemostasis. We tentatively did bring the flap and inset it along with closure of the donor site to be sure the defect is adequately covered with the soft tissue of the lateral chest wall flap and there was no difficulty in closing the donor site and upon doing this, we confirmed that there was no difficulty in closing the wound or the donor site. We then removed all the gabo. Again, we looked for any evidence of bleeding. We achieved further hemostasis. Surgicel was then placed in the wound bed. The flap itself was then placed back above the latissimus muscle as in situ and the defect in the axilla was then covered with wet/dry dressings. The plan will be to bring the patient back to the operating room in 48 hours while she is on IV antibiotics and undergoing local wound care. At that point in 48 hours, she will undergo definitive flap transfer into the defect with closure of the donor site. The patient tolerated the procedure well. There was no complications. All needle and sponge counts were correct at the end of the case. Sagar Brambila M.D. DR: JOHAN JOB#: [id number] CC: QUENTIN
[2018-05-16] MEDS: PCA shift volume MISC SCH (19:00)
--- NOTE | 2018-05-16 19:30 | NUR ---
HAND-OFF: Report given to Anam FITZGERALD. Patient is stable.
--- NOTE | 2018-05-16 20:00 | NUR ---
NURSE NOTES: Patient in bed awake and oriented. VSS. No SOB noted. Dressing is dry and intact. 8/10 surgical pain noted PRN pain medication given. Reinforced use of PULP MILL OPERATOR for increasing pain. Needs attended. Due meds given. Family at bedside. Call light within reach. In stable condition.
--- NOTE | 2018-05-16 20:00 | General Progress Note ---
Assessment/Plan Status: stable Assessment/Plan 22 year old female with PMH of Crohns disease on remicade (Next dose 05/21/18), anxiety and hidradenitis suppurativa presents with pain in L axilla region with open wound with drainage. #Hidradenitis suppurative on L axilla s/p surgery at OSH with open wound #Possible wound infection/abscess of above plan for Excision of the left axillary hidradenitis tissue and Elevation of a fasciocutaneous left lateral chest wall flap -plastic surgery (Dr. Brambila) consult appreciated -cont IV Ancef 1gr Q8hrs -f/u Blood cultures -Pain management -Plan for OR today Medical clearance for L axillary hidradenitis tissue excision Based on the patient's medical history, and other available ancillary data, the patient is a LOW risk for an INTERMEDIATE risk procedure. Per the most recent ACC/AHA guidelines, the patient does not need any further cardiopulmonary testing prior to the procedure and there do not appear to be any clear medical contraindications to proceeding with the proposed procedure. Perioperative recommendations include IV Ancef 1gIVPB train operations supervisor to the OR. Post operative recommendations include: - Encourage mobilization/ambulation - Encourage incentive spirometry to optimize pulmonary hygiene - DVT/GI prophylaxis as appropriate - Pain control and supportive care #Crohns disease -on remicade - next dose 05/21/18 -no signs of acute flare -CTM #Anxiety -home meds restarted Code status Creative Guru of note, maynot reflect time of encounter I spent 45 min on this patients care, and 35 min was dedicated to counseling and /or care coordination Subjective Date patient seen: May 16, 2018 Time patient seen: 09:00 Allergies: Coded Allergies: AZATHIOPRINE (Verified Allergy, Unknown, 05/15/18) DOCUSATE (Verified Allergy, Unknown, 05/15/18) ok for oral LATEX (Verified Allergy, Unknown, 05/15/18) VANCOMYCIN (Verified Allergy, Unknown, 05/15/18) BISACODYL (Verified Adverse Reaction, Severe, Rash, 05/15/18) Uncoded Allergies: IODINE CONTRAST (Allergy, Unknown, 05/15/18) TAPE (Allergy, Unknown, 05/15/18) All Systems: reviewed and negative except above Subjective No acute overnight events, pt seen prior to procedure, states she feels well, Left axilla pain controlled with current regimen. Pt has no complaints. Objective Last 24 Hour Vital Signs Date Time Temp Pulse Resp B/P (MAP) Pulse Ox O2 Delivery O2 Flow Rate FiO2 05/16/18 16:00 98.0 78 18 109/61 (77) 98 05/16/18 13:00 97.4 71 15 100/60 100 Nasal Cannula 3 05/16/18 13:00 16 05/16/18 12:50 73 18 106/64 100 Nasal Cannula 3 05/16/18 12:45 14 05/16/18 12:44 70 16 105/64 100 Nasal Cannula 3 05/16/18 12:35 71 15 102/58 100 Nasal Cannula 3 05/16/18 12:30 97.4 05/16/18 12:30 97.4 05/16/18 12:30 16 05/16/18 12:25 71 16 100/64 100 Nasal Cannula 3 05/16/18 12:15 71 14 113/58 100 Nasal Cannula 3 05/16/18 12:15 14 05/16/18 12:06 15 05/16/18 12:05 78 16 113/58 100 Simple Mask 6 05/16/18 12:00 95 13 116/64 100 Simple Mask 6 05/16/18 11:54 115 15 120/67 100 Simple Mask 6 05/16/18 11:53 97.8 143 14 118/58 100 Simple Mask 6 05/16/18 11:50 107 16 100 05/16/18 08:00 98.0 78 18 104/58 (73) 100 05/16/18 04:00 98.1 76 18 102/69 (80) 99 05/16/18 00:00 97.8 78 16 100/66 (77) 99 05/15/18 20:00 98.7 85 18 128/71 (90) 98 Intake and Output 05/15/18 05/16/18 19:00 07:00 # Voids 1 # Bowel Movements 1 Laboratory Tests 05/16/18 06:40: White Blood Count 9.1, Red Blood Count 4.31, Hemoglobin 12.2, Hematocrit 37.7, Mean Corpuscular Volume 88, Mean Corpuscular Hemoglobin 28.3, Mean Corpuscular Hemoglobin Concent 32.4, Red Cell Distribution Width 12.7, Platelet Count 255, Mean Platelet Volume 6.2L, Neutrophils (%) (Auto) 51.7, Lymphocytes (%) (Auto) 37.2, Monocytes (%) (Auto) 9.5, Eosinophils (%) (Auto) 0.7, Basophils (%) (Auto ) 0.9, Sodium Level 139, Potassium Level 4.5, Chloride Level 105, Carbon Dioxide Level 26, Anion Gap 8, Blood Urea Nitrogen 14, Creatinine 0.8, Estimat Glomerular Filtration Rate > 60, Glucose Level 94, Calcium Level 8.7, Phosphorus Level 5.0H, Magnesium Level 1.8 Height (Feet): 5 Height (Inches): 5.50 Weight (Pounds): 170 Objective General Appearance: WD/WN, no apparent distress, alert Lines, tubes and drains: peripheral HEENT: normocephalic, atraumatic, anicteric Neck: non-tender, normal alignment, supple Respiratory/Chest: chest wall non-tender, lungs clear, normal breath sounds, no respiratory distress Cardiovascular/Chest: normal peripheral pulses, normal rate, regular rhythm Abdomen: normal bowel sounds, non tender, soft, no organomegaly Extremities: normal range of motion, non-tender, normal inspection, no calf tenderness Skin Exam: normal pigmentation, warm/dry, other - Left axcilla with open wound about 2.5inch x 0.5in, erythematous, tender to touch, discharge present Neurologic: traveling crane operator II-XII grossly normal Musculoskeletal: normal muscle bulk Celeste Jeronimo MD May 16, 2018 19:59
[2018-05-16] MEDS: ceFAZolin 1gm/50ml Premix 50 ML IV SCH (20:26)
[2018-05-16] MEDS: Heparin 5000 units/ml inj SUBQ SCH (20:27)
[2018-05-17] VITALS: BP 97/54
[2018-05-17 04:00] VITALS: BP 98/58
[2018-05-17] MEDS: ceFAZolin 1gm/50ml Premix 50 ML IV SCH ×3 (05:49→22:00)
--- NOTE | 2018-05-17 05:59 | NUR ---
NURSE NOTES: Patient still complaining of pain even with PRN pain medication and MARBLE POLISHER HAND. MD made aware, awaiting for call back. Needs attended. Dressing is dry and intact. In stable condition.
[2018-05-17] MEDS ORDERED: HYDROcodone/Acetamin 10/325 tab ORAL PRN (06:45)
[2018-05-17 07:07] LABS: ANION GAP 7 mmol/L (5-15); BLOOD UREA NITROGEN 8 mg/dL (7-18); CALCIUM 8.5 MG/DL (8.5-10.1); CARBON DIOXIDE 29 MMOL/L (21-32); CHLORIDE 104 MMOL/L (98-107); CREATININE 0.8 MG/DL (0.55-1.30); SODIUM 139 MMOL/L (136-145)
[2018-05-17] MEDS: PCA shift volume MISC SCH ×2 (07:20→19:00)
[2018-05-17 07:28] LABS: BASOPHILS % (AUTO) 0.3 % (0.0-2.0); HEMATOCRIT 34.6 % (37.0-47.0); HEMOGLOBIN 11.4 G/DL (12.0-16.0); LYMPHOCYTES % (AUTO) 16.5 % (20.0-45.0); MEAN CORPUSCULAR VOLUME 88 FL (80-99); MONOCYTES % (AUTO) 7.3 % (1.0-10.0); NEUTROPHILS % (AUTO) 75.9 % (45.0-75.0); PLATELET COUNT 262 K/UL (150-450); RED BLOOD COUNT 3.96 M/UL (4.20-5.40); RED CELL DISTRIBUTION WIDTH 12.8 % (11.6-14.8); WHITE BLOOD COUNT 13.6 K/UL (4.8-10.8)
--- NOTE | 2018-05-17 07:30 | NUR ---
NURSE NOTES: Patient is in bed awake and able to verbalize needs. Patient is stable and complains of severe pain, will administer medication as ordered. Patient encouraged to use call light for assistance, verbalized understanding. Surgical dressing clean, dry, and intact. Patient comfortable in bed with call light within reach, will continue to monitor.
[2018-05-17 08:00] VITALS: BP 97/50
[2018-05-17] MEDS: ARIPiprazole 2mg tab ORAL SCH (08:31)
[2018-05-17] MEDS: HYDROcodone/Acetamin 10/325 tab ORAL PRN ×2 (08:32→17:39)
[2018-05-17] MEDS: Heparin 5000 units/ml inj SUBQ SCH ×2 (08:35→20:46)
--- NOTE | 2018-05-17 09:15 | Consultation ---
History of Present Illness General Date patient seen: May 17, 2018 Chief Complaint: Present Illness Allergies: Coded Allergies: AZATHIOPRINE (Verified Allergy, Unknown, 05/15/18) DOCUSATE (Verified Allergy, Unknown, 05/15/18) ok for oral LATEX (Verified Allergy, Unknown, 05/15/18) VANCOMYCIN (Verified Allergy, Unknown, 05/15/18) BISACODYL (Verified Adverse Reaction, Severe, Rash, 05/15/18) Uncoded Allergies: IODINE CONTRAST (Allergy, Unknown, 05/15/18) TAPE (Allergy, Unknown, 05/15/18) Medication History Miscellaneous Medications Unable to Obtain Medications (Unable To Obtain Meds), (Reported) Patient History Healthcare decision maker Resuscitation status Full Code Advanced Directive on File Physical Exam Last 24 Hour Vital Signs Date Time Temp Pulse Resp B/P (MAP) Pulse Ox O2 Delivery O2 Flow Rate FiO2 05/17/18 04:00 17 05/17/18 04:00 97.5 79 17 98/58 (71) 96 05/17/18 00:00 98.1 79 18 97/54 (68) 96 05/17/18 00:00 17 05/16/18 21:00 Room Air 05/16/18 20:00 98.5 82 18 98/58 (71) 100 05/16/18 16:00 98.0 78 18 109/61 (77) 98 05/16/18 14:15 98.0 78 18 109/61 (77) 98 05/16/18 13:15 98.0 78 18 104/58 (73) 100 05/16/18 13:00 97.4 71 15 100/60 100 Nasal Cannula 3 05/16/18 13:00 16 05/16/18 12:50 73 18 106/64 100 Nasal Cannula 3 05/16/18 12:45 14 05/16/18 12:44 70 16 105/64 100 Nasal Cannula 3 05/16/18 12:35 71 15 102/58 100 Nasal Cannula 3 05/16/18 12:30 97.4 05/16/18 12:30 97.4 05/16/18 12:30 16 05/16/18 12:25 71 16 100/64 100 Nasal Cannula 3 05/16/18 12:15 71 14 113/58 100 Nasal Cannula 3 05/16/18 12:15 14 05/16/18 12:06 15 05/16/18 12:05 78 16 113/58 100 Simple Mask 6 05/16/18 12:00 95 13 116/64 100 Simple Mask 6 05/16/18 11:54 115 15 120/67 100 Simple Mask 6 05/16/18 11:53 97.8 143 14 118/58 100 Simple Mask 6 05/16/18 11:50 107 16 100 Intake and Output 05/16/18 05/17/18 18:59 06:59 Intake Total 1000 ml 1625 ml Output Total 30 ml Balance 970 ml 1625 ml Intake Oral 800 ml IV Total 1000 ml 825 ml Output Estimated Blood Loss 30 ml # Voids 2 # Bowel Movements 1 Laboratory Tests Test 05/17/18 05:10 White Blood Count 13.6 K/UL (4.8-10.8) H Red Blood Count 3.96 M/UL (4.20-5.40) L Hemoglobin 11.4 G/DL (12.0-16.0) L Hematocrit 34.6 % (37.0-47.0) L Mean Corpuscular Volume 88 FL (80-99) Mean Corpuscular Hemoglobin 28.9 PG (27.0-31.0) Mean Corpuscular Hemoglobin Concent 33.0 G/DL (32.0-36.0) Red Cell Distribution Width 12.8 % (11.6-14.8) Platelet Count 262 K/UL (150-450) Mean Platelet Volume 6.1 FL (6.5-10.1) L Neutrophils (%) (Auto) 75.9 % (45.0-75.0) H Lymphocytes (%) (Auto) 16.5 % (20.0-45.0) L Monocytes (%) (Auto) 7.3 % (1.0-10.0) Eosinophils (%) (Auto) 0.0 % (0.0-3.0) Basophils (%) (Auto) 0.3 % (0.0-2.0) Sodium Level 139 MMOL/L (136-145) Potassium Level 4.0 MMOL/L (3.5-5.1) Chloride Level 104 MMOL/L (98-107) Carbon Dioxide Level 29 MMOL/L (21-32) Anion Gap 7 mmol/L (5-15) Blood Urea Nitrogen 8 mg/dL (7-18) Creatinine 0.8 MG/DL (0.55-1.30) Estimat Glomerular Filtration Rate > 60 mL/min (>60) Glucose Level 144 MG/DL (74-106) H Calcium Level 8.5 MG/DL (8.5-10.1) Height (Feet): 5 Height (Inches): 5.50 Weight (Pounds): 170 Medications Current Medications Medications (Trade) Dose Ordered Sig/Alix Route PRN Reason Start Time Stop Time Status Last Admin Dose Admin Acetaminophen (Tylenol) 650 mg Q4H PRN ORAL FEVER 05/16/18 10:00 06/15/18 09:59 Acetaminophen/ Hydrocodone Bitart (Ford 10/325) 1 tab Q4H PRN ORAL For Pain Level <=5 05/17/18 06:45 05/24/18 06:44 05/17/18 08:32 Aripiprazole (Abilify) 2 mg DAILY ORAL 05/16/18 09:00 06/15/18 08:59 05/17/18 08:31 Cefazolin Sodium 50 ml @ 100 mls/hr Q8HR IV 05/16/18 22:00 05/23/18 21:59 05/17/18 05:49 Dextrose (Dextrose 50%) 25 ml Q30M PRN IV Hypoglycemia 05/15/18 18:15 06/14/18 18:14 Dextrose (Dextrose 50%) 50 ml Q30M PRN IV Hypoglycemia 05/15/18 18:15 06/14/18 18:14 Diphenhydramine HCl (Benadryl) 25 mg Q6H PRN ORAL Itching/Pruritis 05/15/18 18:15 06/14/18 18:14 05/16/18 00:18 Heparin Sodium (Porcine) (Heparin 5000 units/ml) 5,000 units EVERY 12 HOURS SUBQ 05/16/18 21:00 06/15/18 20:59 05/17/18 08:35 Hydromorphone HCl 30 ml @ 0 mls/hr Q24H PRN IV For Pain 05/16/18 12:00 05/18/18 11:59 05/16/18 12:06 Hydromorphone HCl (Dilaudid) 2 mg Q3H PRN SUBQ Severe Pain (Pain Scale 7-10) 05/16/18 12:15 05/18/18 12:14 05/17/18 07:46 Hydromorphone HCl (Dilaudid) 2 mg Q4H PRN IVP Moderate Pain (Pain Scale 4-6) 05/16/18 12:15 05/18/18 12:14 05/16/18 14:30 Magnesium Hydroxide (Mom) 30 ml HSPRN PRN ORAL Constipation 05/15/18 18:15 06/14/18 18:14 Miscellaneous Medication (MUSIC VIDEO PRODUCER Education Pamphlet) 1 ea ONCE MISC 05/16/18 14:00 05/18/18 13:59 05/16/18 14:00 Miscellaneous Medication (MUSIC VIDEO PRODUCER Rate Change) 1 ea DAILY PRN MISC rate change 05/16/18 12:00 05/18/18 11:59 Miscellaneous Medication (MUSIC VIDEO PRODUCER shift volume) 1 ea Q12HR@0700,1900 MISC 05/16/18 19:00 05/18/18 18:59 05/17/18 07:20 Ondansetron HCl (Zofran) 4 mg Q6H PRN IVP Nausea & Vomiting 05/16/18 10:00 06/15/18 09:59 05/16/18 20:27 Polyethylene Glycol (Miralax) 17 gm HSPRN PRN ORAL Constipation 05/15/18 18:15 06/14/18 18:14 Sodium Chloride 1,000 ml @ 75 mls/hr [id number] IV 05/15/18 19:15 06/14/18 19:14 05/16/18 18:12 Temazepam (Restoril) 7.5 mg DAILYPRN PRN ORAL Insomnia 05/16/18 10:00 05/23/18 09:59 Zolpidem Tartrate (Ambien) 5 mg DAILYPRN PRN ORAL Insomnia 05/16/18 12:45 05/23/18 09:59 Assessment/Plan Assessment/Plan (1) Left Axilla pain (2) Left axillary open wound with infected hidradenitis (3) S/p Excision and elevation of left chest wall flap seen dictated Hao Aldana May 17, 2018 09:15
--- NOTE | 2018-05-17 09:17 | NUR ---
CASE MANAGEMENT:REVIEW 05/17/18 SI: POD #1 HIDRADENITIS SUPPURATIVE LT AXILLA 97.5 79 17 98/58 96% ON RA WBC+13.6 H/H-11.4/34.6 GLUCOSE+144 IS: DEPARTMENT CHAIR DILAUDID IV ANCEF Q8HRS HEPARIN SQ Q12 IVF@75/HR : MED/SURG STATUS 3 EAST PLAN: BLOOD CX PENDING IV ANTIBIOTICS
--- NOTE | 2018-05-17 09:33 | 48 Hour Post Anesthesia Eval ---
Post Anesthesia Evaluation Procedure: L Axilla Debridement with Flap Date of Evaluation: May 17, 2018 Time of Evaluation: 09:32 Blood Pressure Systolic: 112 0: 58 Pulse Rate: 64 Respiratory Rate: 18 Temperature (Fahrenheit): 97.6 O2 Sat by Pulse Oximetry: 97 Airway: patent Nausea: No Vomiting: No Pain Intensity: 2 Hydration Status: adequate Cardiopulmonary Status: stable Mental Status/LOC: patient returned to baseline Follow-up Care/Observations: n/a Post-Anesthesia Complications: none Follow-up care needed: N/A Baudilio Garnett MD May 17, 2018 09:33
--- NOTE | 2018-05-17 10:12 | Anethesia Preoperative Eval ---
Anesthesia Pre-op PMH/ROS General Date of Evaluation: May 17, 2018 Time of Evaluation: 14:09 Anesthesiologist: Qasim ASA Score: ASA 2 Mallampati Score Class I : Soft palate, uvula, fauces, pillars visible Class II: Soft palate, uvula, fauces visible Class III: Soft palate, base of uvula visible Class IV: Only hard plate visible Mallampati Classification: Class II Surgeon: Patty Diagnosis: Hidradenitis L Axilla Surgical Procedure: L Axillary Flap Closure Anesthesia History: none Social History: drug use - Opioid Tolerance Family History: no anesthesia problems Allergies: Coded Allergies: AZATHIOPRINE (Verified Allergy, Unknown, 05/15/18) DOCUSATE (Verified Allergy, Unknown, 05/15/18) ok for oral LATEX (Verified Allergy, Unknown, 05/15/18) VANCOMYCIN (Verified Allergy, Unknown, 05/15/18) BISACODYL (Verified Adverse Reaction, Severe, Rash, 05/15/18) Uncoded Allergies: IODINE CONTRAST (Allergy, Unknown, 05/15/18) TAPE (Allergy, Unknown, 05/15/18) Medications: see eMAR Patient NPO?: Yes NPO Date: May 16, 2018 NPO Time: 0000 Past Medical History Gastrointestinal/Genitourinary: Reports: other - Crohns Disease Hematology/Immune: Reports: anemia PSxH Narrative: L Axilla Flap Elevation And Debridement 05/16/2018 Anesthesia Pre-op Phys. Exam Physician Exam Last Vital Signs Date Time Temp Pulse Resp B/P (MAP) Pulse Ox O2 Delivery O2 Flow Rate FiO2 05/17/18 09:33 64 18 97 05/17/18 04:00 97.5 98/58 (71) 05/16/18 21:00 Room Air 05/16/18 13:00 3 Constitutional: NAD Neurologic: CN 2-12 intact Cardiovascular: RRR Respiratory: CTA Gastrointestinal: S/NT/ND Airway Exam Mallampati Score: Class II MO: full ROM: full Teeth: intact Anesthesia Pre-op A/P Labs Hematology Test 05/17/18 05:10 White Blood Count 13.6 K/UL (4.8-10.8) H Red Blood Count 3.96 M/UL (4.20-5.40) L Hemoglobin 11.4 G/DL (12.0-16.0) L Hematocrit 34.6 % (37.0-47.0) L Mean Corpuscular Volume 88 FL (80-99) Mean Corpuscular Hemoglobin 28.9 PG (27.0-31.0) Mean Corpuscular Hemoglobin Concent 33.0 G/DL (32.0-36.0) Red Cell Distribution Width 12.8 % (11.6-14.8) Platelet Count 262 K/UL (150-450) Mean Platelet Volume 6.1 FL (6.5-10.1) L Neutrophils (%) (Auto) 75.9 % (45.0-75.0) H Lymphocytes (%) (Auto) 16.5 % (20.0-45.0) L Monocytes (%) (Auto) 7.3 % (1.0-10.0) Eosinophils (%) (Auto) 0.0 % (0.0-3.0) Basophils (%) (Auto) 0.3 % (0.0-2.0) Chemistry Test 05/17/18 05:10 Sodium Level 139 MMOL/L (136-145) Potassium Level 4.0 MMOL/L (3.5-5.1) Chloride Level 104 MMOL/L (98-107) Carbon Dioxide Level 29 MMOL/L (21-32) Anion Gap 7 mmol/L (5-15) Blood Urea Nitrogen 8 mg/dL (7-18) Creatinine 0.8 MG/DL (0.55-1.30) Estimat Glomerular Filtration Rate > 60 mL/min (>60) Glucose Level 144 MG/DL (74-106) H Calcium Level 8.5 MG/DL (8.5-10.1) Risk Assessment & Plan Assessment: ASA 2 Plan: GA Status Change Before Surgery: No Pre-Antibiotics Drug: Jadon Carcamo MD May 17, 2018 10:12
--- NOTE | 2018-05-17 10:52 | General Progress Note ---
Progress Note Progress Note Pt seen and examined. She is POD# 1 from left axillary wound/ HS excision and flap elevation. Pain management saw the patient this morning to address her pain as the Dilaudid PARTY BUS DRIVER was not sufficient to control her pain. He recommended to ad Gabapentin and will follow the patient while she is an inpatient. Dressings are CDI. Plan for OR tomorrow for flap transfer and closure of the left axillary wound. NPO after MN. Sagar Campbell MD, MD May 17, 2018 10:52
--- NOTE | 2018-05-17 11:01 | NUR ---
*-* INSURANCE *-* ALL CLINICALS , REVIEW AND INTERQUAL HAVE BEEN FAXED TO: [facility] [facility]: LYNETTE Yeung P- [phone] Addendum: 05/17/18 at 1426 by ISMAEL BELTRE LVN LVN TRACKING NUMBER [phone] APPROVED THRU 05/18/18
[2018-05-17 12:00] VITALS: BP 90/52
[2018-05-17] MEDS: PCA Education Pamphlet MISC SCH (14:00)
[2018-05-17 16:00] VITALS: BP 93/53
[2018-05-17] MEDS: Lactobacillus-GG tablet ORAL SCH (17:39)
--- NOTE | 2018-05-17 19:30 | NUR ---
HAND-OFF: Report given to Anam FITZGERALD. Patient is stable.
--- NOTE | 2018-05-17 19:30 | NUR ---
NURSE NOTES: Received report from LIA Gil. Received pt lying in bed, AOX4, pain level 10/10 L axilla, will medication pt for pain, no distress noted. Surgical dressing C/D/I. COBOL PROGRAMMER setting checked and verified. Instructed pt to use IS q 1 hour x 10 while awake. Pt verbalized understanding. Bed in lowest position and locked, side rails up x 2, call light within reach. Father at bedside. Will continue to monitor.
[2018-05-17 20:00] VITALS: BP 113/63
--- NOTE | 2018-05-17 20:03 | General Progress Note ---
Assessment/Plan Assessment/Plan 22 year old female with PMH of Crohns disease on remicade (Next dose 05/21/18), anxiety and hidradenitis suppurativa presents with pain in L axilla region with open wound with drainage. #Hidradenitis suppurative on L axilla s/p surgery at OSH with open wound #Possible wound infection/abscess s/p Excision of the left axillary hidradenitis tissue and Elevation of a fasciocutaneous left lateral chest wall flap POD #1 -plastic surgery (Dr. Brambila) consult appreciated -cont IV Ancef 1gr Q8hrs -f/u Blood cultures -pain not controlled on CENTRIFUGAL OPERATOR dilauded -Pain management consulted - gabapentin added - will cont to follow -Plan for OR tomorrow for flap transfer and closure of L axillary wound - Encourage mobilization/ambulation - Encourage incentive spirometry to optimize pulmonary hygiene - DVT/GI prophylaxis as appropriate #Crohns disease -on remicade - next dose 05/21/18 -no signs of acute flare -CTM #Anxiety -home meds restarted Code status Nursing Home Admissions Director of note, may not reflect time of encounter I spent 45 min on this patients care, and 35 min was dedicated to counseling and /or care coordination Subjective Date patient seen: May 17, 2018 ROS Limited/Unobtainable: No Allergies: Coded Allergies: AZATHIOPRINE (Verified Allergy, Unknown, 05/15/18) DOCUSATE (Verified Allergy, Unknown, 05/15/18) ok for oral LATEX (Verified Allergy, Unknown, 05/15/18) VANCOMYCIN (Verified Allergy, Unknown, 05/15/18) BISACODYL (Verified Adverse Reaction, Severe, Rash, 05/15/18) Uncoded Allergies: IODINE CONTRAST (Allergy, Unknown, 05/15/18) TAPE (Allergy, Unknown, 05/15/18) Subjective Pt with complaints of severe pain, not controlled on current regimen, Pain management consulted, gabapentin added. Otherwise no other complaints, denies chest pain, n/c/v/d, fevers, chills or SOB Objective Last 24 Hour Vital Signs Date Time Temp Pulse Resp B/P (MAP) Pulse Ox O2 Delivery O2 Flow Rate FiO2 05/17/18 16:00 20 05/17/18 16:00 97.1 68 20 93/53 (66) 95 05/17/18 12:00 20 05/17/18 12:00 98.7 70 20 90/52 (65) 95 05/17/18 09:33 64 18 97 05/17/18 09:00 Room Air 05/17/18 08:00 20 05/17/18 08:00 98.4 75 20 97/50 (66) 95 05/17/18 04:00 17 05/17/18 04:00 97.5 79 17 98/58 (71) 96 05/17/18 00:00 98.1 79 18 97/54 (68) 96 05/17/18 00:00 17 05/16/18 21:00 Room Air 05/16/18 20:00 98.5 82 18 98/58 (71) 100 Intake and Output 05/16/18 05/17/18 19:00 07:00 Intake Total 1000 ml 1625 ml Output Total 30 ml Balance 970 ml 1625 ml Intake Oral 800 ml IV Total 1000 ml 825 ml Output Estimated Blood Loss 30 ml # Voids 2 # Bowel Movements 1 Laboratory Tests 05/17/18 05:10: White Blood Count 13.6H, Red Blood Count 3.96L, Hemoglobin 11.4L, Hematocrit 34.6L, Mean Corpuscular Volume 88, Mean Corpuscular Hemoglobin 28.9, Mean Corpuscular Hemoglobin Concent 33.0, Red Cell Distribution Width 12.8, Platelet Count 262, Mean Platelet Volume 6.1L, Neutrophils (%) (Auto) 75.9H, Lymphocytes (%) (Auto) 16.5L, Monocytes (%) (Auto) 7.3, Eosinophils (%) (Auto) 0.0, Basophils (%) (Auto) 0.3, Sodium Level 139, Potassium Level 4.0, Chloride Level 104, Carbon Dioxide Level 29, Anion Gap 7, Blood Urea Nitrogen 8, Creatinine 0.8 , Estimat Glomerular Filtration Rate > 60, Glucose Level 144H, Calcium Level 8.5 Height (Feet): 5 Height (Inches): 5.50 Weight (Pounds): 170 Objective General Appearance: WD/WN, no apparent distress, alert Lines, tubes and drains: peripheral HEENT: normocephalic, atraumatic, anicteric Neck: non-tender, normal alignment, supple Respiratory/Chest: chest wall non-tender, lungs clear, normal breath sounds, no respiratory distress Cardiovascular/Chest: normal peripheral pulses, normal rate, regular rhythm Abdomen: normal bowel sounds, non tender, soft, no organomegaly Extremities: normal range of motion, non-tender, normal inspection, no calf tenderness Skin Exam: normal pigmentation, warm/dry, other - Left axilla with dressing CDI Neurologic: director of food and nutrition services II-XII grossly normal Musculoskeletal: normal muscle bulk Celeste Jeronimo MD May 17, 2018 20:03
[2018-05-17] MEDS: Miralax 17gm pkt ORAL PRN (20:14)
--- NOTE | 2018-05-17 22:30 | NUR ---
NURSE NOTES: Pt's. temp. 100.6, pt is shivering, no c/o SOB. Tylenol 650mg PO given. Instructed pt and father to encouraged pt to use IS q hour while awake. Verbalized understanding.
--- NOTE | 2018-05-17 23:01 | NUR ---
NURSE NOTES: Re-check temp 99.8. No distress noted. Will continue to monitor.
[2018-05-18] VITALS: BP 109/66
--- NOTE | 2018-05-18 02:00 | Consultation ---
DATE OF CONSULTATION: 05/17/2018 PAIN MANAGEMENT CONSULTATION CONSULTING PHYSICIAN: Spencer Long M.D. REFERRING PHYSICIAN: Mary Cabrera M.D. PHYSICIAN RELATIONS DIRECTOR: Fawn Sierra CHIEF COMPLAINT: Left axilla pain. HISTORY OF PRESENT ILLNESS: This is a 22-year-old female, who is being seen on the Med/Surg floor of [facility] [place] [facility] for initial pain management consultation. The patient was admitted under the care of Dr. Cabrera and seen by Dr. Brambila. She had multiple surgeries for her left axillary due to hidradenitis suppurativa status post left axillary excision of open wound with infected hidradenitis and elevation of left chest wall flap for staged closure, started on Dilaudid 0.2 mg every 6 minutes and Dilaudid 2 mg IV every 4 hours and Dilaudid 2 mg subcutaneous every 3 hours and Kane 10/325 one tablet every 4 hours as needed for pain, using 2 mg of the COMPRESSION MOLDING MACHINE OPERATOR, 1 dose of Dilaudid, 1 dose subcutaneous, 1 dose of Dilaudid IV, and 1 dose of Kane with minimal pain relief. At this time, the patient is in bed with family at bedside. She is reporting severe pain. I discussed with the patient in detail about her condition reporting that she has not used the COMPRESSION MOLDING MACHINE OPERATOR as often, only using it 15 times since the surgery, which was done yesterday, and explained to her to use this more often, also able to use the Kane and Dilaudid as needed. She seems to understand as well as discussed with her the option to start Neurontin 300 mg tablet 3 times a day to calm the nerves and relieve her pain. The patient seems to understand and agrees with the plan at this time. The patient is being prepped for closure of the flap tomorrow as per the plastic surgeon, Dr. Brambila. PAST MEDICAL HISTORY: Crohn's disease and hidradenitis suppurativa. PAST SURGICAL HISTORY: Laparoscopic bowel resection, multiple left arm surgeries, as well as perianal fistula repair, abscess as well as pilonidal cyst. MEDICATIONS: Kane. ALLERGIES: Bystolic, docusate, iodine, latex tape, and vancomycin. SOCIAL HISTORY: Drinking alcohol. Occasionally smokes marijuana. REVIEW OF SYSTEMS: Denies rash, fever, chills, sweating, dizziness, drowsiness, blurred vision, sore throat, or change in her weight. No shortness of breath or chest pain. No nausea, vomiting, diarrhea, or blood in the stool or urine. No bowel or bladder incontinence. She is complaining of left axilla pain. PHYSICAL EXAMINATION: GENERAL: Alert, awake, and oriented x3. VITAL SIGNS: Blood pressure 98/58, heart rate is 79, oxygen saturation 96%, respiratory rate is 13, and temperature is 97.5 degrees Fahrenheit. HEENT: PERRLA. NECK: Range of motion is full in all directions. No tenderness to paracervical muscles. No adenopathy. LUNGS: Clear bilaterally. HEART: S1 and S2 regular. ABDOMEN: Benign. BACK: Range of motion is full on flexion and extension. EXTREMITIES: Upper extremity range of motion is decreased due to the patient's condition at the left upper extremity. Bandages noted on the axilla area. Tenderness to palpation. Lower extremity range of motion is full in all directions. No cyanosis. No clubbing. No edema. Sensory is intact. Reflexes are not obtainable. No adenopathy. ASSESSMENT AND PLAN: This is a 22-year-old female with left axilla pain, left axillary open wound with infected hidradenitis status post excision, and elevation of left chest wall flap for staged closure. The patient will be continued on the COMPRESSION MOLDING MACHINE OPERATOR Dilaudid, Dilaudid subcutaneous and intravenous, Kane, and will be started on Neurontin 300 mg tablet TID. We will further assess for any need for change in medications if necessary. She is being prepped for surgery for tomorrow for closure of the flaps as per the plastic surgeon. The patient was discussed with Dr. Long and Dr. Long concurred. We will follow the patient. Thank you very much for the courtesy of this consultation. Spencer Long M.D. ADITI Sierra DR: ALKA JOB#: [id number] CC: QUENTIN
[2018-05-18 04:00] VITALS: BP 106/65
[2018-05-18] MEDS: ceFAZolin 1gm/50ml Premix 50 ML IV SCH (05:54)
[2018-05-18] MEDS ORDERED: fentaNYL 100 mcg/2 mL IV ONE (07:06)
[2018-05-18] MEDS ORDERED: Midazolam 2mg/2ml Inj ONE (07:06)
[2018-05-18] MEDS ORDERED: Ketorolac 30mg Inj ONE (07:11)
[2018-05-18] MEDS ORDERED: Lidocaine 1% MPF 10mg/ml 5ml ONE (07:11)
[2018-05-18] MEDS ORDERED: Propofol 200mg/20ml IV ONE (07:11)
[2018-05-18 07:13] LABS: BASOPHILS % (AUTO) 0.8 % (0.0-2.0); EOSINOPHILS % (AUTO) 0.2 % (0.0-3.0); HEMATOCRIT 35.2 % (37.0-47.0); HEMOGLOBIN 11.4 G/DL (12.0-16.0); LYMPHOCYTES % (AUTO) 24.9 % (20.0-45.0); MEAN CORPUSCULAR VOLUME 89 FL (80-99); MONOCYTES % (AUTO) 8.9 % (1.0-10.0); NEUTROPHILS % (AUTO) 65.2 % (45.0-75.0); PLATELET COUNT 209 K/UL (150-450); RED BLOOD COUNT 3.96 M/UL (4.20-5.40); RED CELL DISTRIBUTION WIDTH 12.8 % (11.6-14.8); WHITE BLOOD COUNT 12.6 K/UL (4.8-10.8)
[2018-05-18] MEDS: PCA shift volume MISC SCH (07:13)
--- NOTE | 2018-05-18 07:15 | NUR ---
NURSE NOTES: Patient is in bed awake and able to verbalize needs. Patient is stable with no SOB. Patient complains of pain and is encouraged to use MEDICAL INSURANCE CODER, will monitor pain and administer medication as ordered if necessary. Discussed plan of care today with patient and patient's father, verbalized understanding. Patient is comfortable in bed with call light within reach. Will continue to monitor.
[2018-05-18] MEDS ORDERED: Succinylcholine 20mg/ml 10ml vial ONE (07:17)
[2018-05-18] MEDS ORDERED: Zemuron 50mg/5ml Inj IV ONE (07:17)
[2018-05-18] MEDS ORDERED: EPINEPHrine 1mg/1ml Amp ONE (07:22)
[2018-05-18 07:23] LABS: ANION GAP 8 mmol/L (5-15); BLOOD UREA NITROGEN 8 mg/dL (7-18); CALCIUM 8.4 MG/DL (8.5-10.1); CARBON DIOXIDE 28 MMOL/L (21-32); CHLORIDE 103 MMOL/L (98-107); CREATININE 0.8 MG/DL (0.55-1.30); POTASSIUM 3.7 MMOL/L (3.5-5.1); SODIUM 139 MMOL/L (136-145)
[2018-05-18] MEDS ORDERED: Bacitracin 50000 Units Vial ONE (07:23)
[2018-05-18] MEDS ORDERED: NeoSporin Gu Irrig 1ml Amp IRRIG ONE (07:23)
[2018-05-18] MEDS ORDERED: Lidocaine 1% 10mg/ml/EPI 0.01mg/ml 30ml INJ ONE (07:23)
--- NOTE | 2018-05-18 07:30 | NUR ---
NURSE NOTES: Transport for surgery arrived to orange picker patient. Patient dressed and ready to go downstairs. Stable.
--- NOTE | 2018-05-18 07:52 | NUR ---
HAND-OFF: Report given to LIA Gil. Pt in stable condition.
--- NOTE | 2018-05-18 08:41 | General Progress Note ---
Progress Note Progress Note Pt seen and examined. POD# 2 from radical excision of left axillary tissue and lateral chest wall flap elevation. Plan was to perform the flap transfer and and closure of wound today however the patient had mild fevers last night and on my assessment this morning did not look well. She was very groggy, nauseous, and felt warm. Her dressings over the wound were intact and not bloody. Given her overall appearance I did not feel that it was prudent to proceed with the second stage today. Will have the certified energy manager evaluate, along with the input of ID and GI ( given her Crohn's disease hx). Will see how she does and if overall improved in 24 hours will attempt for wound closure in AM and if still not optimized will postpone until Monday. Will have the left axillary dressings changed with wet to dry today. MD Patty Varma Amir MD May 18, 2018 08:41
[2018-05-18] MEDS ORDERED: Naloxone 0.4mg/ml Inj IVP PRN (09:15)
[2018-05-18] MEDS: ARIPiprazole 2mg tab ORAL SCH (09:30)
[2018-05-18] MEDS: Lactobacillus-GG tablet ORAL SCH ×2 (09:30→18:05)
[2018-05-18] MEDS: Heparin 5000 units/ml inj SUBQ SCH ×2 (09:31→21:12)
--- NOTE | 2018-05-18 09:34 | General Progress Note ---
Assessment/Plan Assessment/Plan (1) Left Axilla pain (2) Left axillary open wound with infected hidradenitis (3) S/p Excision and elevation of left chest wall flap We will discontinue the MEAT TEAM LEAD, Dilaudid IV,and Lydia change the Dilaudid 1mg SubQ Q2H PRN severe pain, decrease the Neurontin 100mg TID, and start Percocet 10/325mg PO 1 tab Q6H ATC hold for oversedation. D/w Dr. Long and he concurred. Subjective Date patient seen: May 18, 2018 Time patient seen: 08:30 - am Constitutional: Reports: fever HEENT: Reports: no symptoms Respiratory: Reports: no symptoms Gastrointestinal/Abdominal: Reports: nausea Genitourinary: Reports: no symptoms Neurologic/Psychiatric: Reports: no symptoms Endocrine: Reports: no symptoms Hematologic/Lymphatic: Reports: no symptoms Allergies: Coded Allergies: AZATHIOPRINE (Verified Allergy, Unknown, 05/15/18) DOCUSATE (Verified Allergy, Unknown, 05/15/18) ok for oral LATEX (Verified Allergy, Unknown, 05/15/18) VANCOMYCIN (Verified Allergy, Unknown, 05/15/18) BISACODYL (Verified Adverse Reaction, Severe, Rash, 05/15/18) Uncoded Allergies: IODINE CONTRAST (Allergy, Unknown, 05/15/18) TAPE (Allergy, Unknown, 05/15/18) Subjective Patient is in bed with father at bedside. She is feeling sleepy with nausea and found to have a fever. Hand Washer and surgeon has requested ID and GI Specialist. Surgeon has postponed surgery till tomorrow or Monday if not stable. Patient has used MEAT TEAM LEAD: 2.8mg, 1 dose of Dilaudid IV, 5 doses of Dilaudid SubQ and 2 doses of Lydia in the last 24hrs, this was d/w Hand Washer and surgeon. Objective Last 24 Hour Vital Signs Date Time Temp Pulse Resp B/P (MAP) Pulse Ox O2 Delivery O2 Flow Rate FiO2 05/18/18 05:18 99.6 05/18/18 05:05 99.6 05/18/18 04:45 99.6 05/18/18 04:00 100.0 92 18 106/65 (79) 96 05/18/18 04:00 18 05/18/18 00:00 18 05/18/18 00:00 100.4 98 18 109/66 (80) 95 05/17/18 22:30 100.6 05/17/18 21:00 Room Air 05/17/18 20:00 20 05/17/18 20:00 99.5 76 18 113/63 (80) 97 05/17/18 16:00 20 05/17/18 16:00 97.1 68 20 93/53 (66) 95 05/17/18 12:00 20 05/17/18 12:00 98.7 70 20 90/52 (65) 95 05/17/18 09:33 64 18 97 Intake and Output 05/17/18 05/18/18 18:59 06:59 Intake Total 1240 ml Balance 1240 ml Intake Oral 240 ml IV Total 1000 ml # Voids 2 Laboratory Tests 05/18/18 05:15: White Blood Count 12.6H, Red Blood Count 3.96L, Hemoglobin 11.4L, Hematocrit 35.2L, Mean Corpuscular Volume 89, Mean Corpuscular Hemoglobin 28.8, Mean Corpuscular Hemoglobin Concent 32.4, Red Cell Distribution Width 12.8, Platelet Count 209, Mean Platelet Volume 5.8L, Neutrophils (%) (Auto) 65.2, Lymphocytes ( %) (Auto) 24.9, Monocytes (%) (Auto) 8.9, Eosinophils (%) (Auto) 0.2, Basophils (%) (Auto) 0.8, Sodium Level 139, Potassium Level 3.7, Chloride Level 103, Carbon Dioxide Level 28, Anion Gap 8, Blood Urea Nitrogen 8, Creatinine 0.8, Estimat Glomerular Filtration Rate > 60, Glucose Level 100, Calcium Level 8.4L Height (Feet): 5 Height (Inches): 5.00 Weight (Pounds): 170 General Appearance: no apparent distress EENT: PERRL/EOMI, normal ENT inspection Neck: non-tender, normal alignment Cardiovascular: normal rate, regular rhythm Respiratory/Chest: lungs clear, normal breath sounds Abdomen: tender Extremities: non-tender Edema: no edema noted Arm (L), no edema noted Arm (R), no edema noted Leg (L), no edema noted Leg (R), no edema noted Pedal (L), no edema noted Pedal (R), no edema noted Generalized Neurologic: alert, oriented x 3 Skin: normal pigmentation Hao Aldana May 18, 2018 09:33
--- NOTE | 2018-05-18 10:00 | NUR ---
NURSE NOTES: Patient is lethargic. Held Percocet , Dr. Jeronimo aware of patient's lethargy, new orders noted and carried out.
[2018-05-18] MEDS: Miralax 17gm pkt ORAL PRN (10:33)
[2018-05-18] MEDS ORDERED: HYDROcodone/Acetamin 10/325 tab ORAL PRN (10:45)
--- NOTE | 2018-05-18 10:56 | GI Initial Consult Note ---
History of Present Illness General Date patient seen: May 18, 2018 Time patient seen: 10:48 Reason for Hospitalization: General Complaint Referring physician: CHASE GONZALEZ Reason for Consultation: CROHNS FLARE Present Illness HPI 22-year-old female presenting with left arm abscess. She has struggled with hidradenitis superior T5 for the last 2 years. She's had 3 surgeries, all have been outpatient with the mother plastic surgeon. She saw who recommended surgery. She has already finished courses of antibiotics in the past, nothing has worked. She takes oxycodone at home which has not been helping with the pain. No fever no chills. She has a history of Crohn's disease. GI consulted to rule out Crohn's flare. 22-year-old female patient that she has had hidradenitis surgery approximately 2 days ago, scheduled for surgery today however spiked a low-grade fever. The patient has a history of Crohn's status post a partial colectomy back in 2014. The patient currently on Remicade for Crohn's, Ranexa dose is scheduled for May 21, 2018. The patient was seen, awake alert. Patient denies any abdominal pain, denied any diarrhea. Was noted by the family member that the patient becomes constipated when she has a Crohn's flare. Labs reviewed, WBC 12.6, ESR 21, CRP 4.2. Patient is unsure of when her last colonoscopy was performed. Home Meds Reported Medications Unable to Obtain Medications (UNABLE TO OBTAIN MEDS) 1 Ea Ea 05/15/18 Med list reviewed/reconciled: Yes Allergies: Coded Allergies: AZATHIOPRINE (Verified Allergy, Unknown, 05/15/18) DOCUSATE (Verified Allergy, Unknown, 05/15/18) ok for oral LATEX (Verified Allergy, Unknown, 05/15/18) VANCOMYCIN (Verified Allergy, Unknown, 05/15/18) BISACODYL (Verified Adverse Reaction, Severe, Rash, 05/15/18) Uncoded Allergies: IODINE CONTRAST (Allergy, Unknown, 05/15/18) TAPE (Allergy, Unknown, 05/15/18) Patient History History Provided By: Patient, Medical Record PMH Narrative Past Medical History: see triage record Past Surgical History: none, other - bowel resection, incision and drainages Pertinent Family History: none Last Menstrual Period: 04/16/18 Immunizations: UTD Reviewed Nursing Documentation: PMH: Agreed; PSxH: Agreed Past Surgical History: other - Partial colectomy Social History: Denies: smoking, alcohol use, drug use, other Review of Systems All Other Systems: negative except mentioned in HPI Physical Exam Vital Signs Date Time Temp Pulse Resp B/P (MAP) Pulse Ox O2 Delivery O2 Flow Rate FiO2 05/15/18 14:11 98.2 98 18 106/72 96 Room Air 05/16/18 11:53 6 Sp02 EP Interpretation: reviewed, normal Labs Laboratory Tests Test 05/18/18 05:15 White Blood Count 12.6 K/UL (4.8-10.8) H Red Blood Count 3.96 M/UL (4.20-5.40) L Hemoglobin 11.4 G/DL (12.0-16.0) L Hematocrit 35.2 % (37.0-47.0) L Mean Corpuscular Volume 89 FL (80-99) Mean Corpuscular Hemoglobin 28.8 PG (27.0-31.0) Mean Corpuscular Hemoglobin Concent 32.4 G/DL (32.0-36.0) Red Cell Distribution Width 12.8 % (11.6-14.8) Platelet Count 209 K/UL (150-450) Mean Platelet Volume 5.8 FL (6.5-10.1) L Neutrophils (%) (Auto) 65.2 % (45.0-75.0) Lymphocytes (%) (Auto) 24.9 % (20.0-45.0) Monocytes (%) (Auto) 8.9 % (1.0-10.0) Eosinophils (%) (Auto) 0.2 % (0.0-3.0) Basophils (%) (Auto) 0.8 % (0.0-2.0) Erythrocyte Sedimentation Rate 21 MM/HR (0-20) H Sodium Level 139 MMOL/L (136-145) Potassium Level 3.7 MMOL/L (3.5-5.1) Chloride Level 103 MMOL/L (98-107) Carbon Dioxide Level 28 MMOL/L (21-32) Anion Gap 8 mmol/L (5-15) Blood Urea Nitrogen 8 mg/dL (7-18) Creatinine 0.8 MG/DL (0.55-1.30) Estimat Glomerular Filtration Rate > 60 mL/min (>60) Glucose Level 100 MG/DL (74-106) Calcium Level 8.4 MG/DL (8.5-10.1) L C-Reactive Protein, Quantitative 4.2 mg/dL (0.00-0.90) H General Appearance: well appearing, no apparent distress, alert Head: normocephalic EENT: PERRL/EOMI, normal ENT inspection Neck: supple Respiratory: normal breath sounds, no respiratory distress Cardiovascular: normal rate Gastrointestinal: normal inspection, non tender, soft, normal bowel sounds, non -distended Rectal: deferred Genitourinary: no CVA tenderness Musculoskeletal: normal inspection, back normal Neurologic: normal inspection, alert, oriented x3, responsive Psychiatric: normal inspection, judgement/insight normal, memory normal Skin: normal inspection, normal color, no rash, warm/dry, palpation normal, well hydrated Lymphatic: normal inspection, no adenopathy Current Medications Current Medications Medications (Trade) Dose Ordered Sig/Alix Route PRN Reason Start Time Stop Time Status Last Admin Dose Admin Acetaminophen (Tylenol) 650 mg Q4H PRN ORAL FEVER 05/16/18 10:00 06/15/18 09:59 05/18/18 04:48 Aripiprazole (Abilify) 2 mg DAILY ORAL 05/16/18 09:00 06/15/18 08:59 05/18/18 09:30 Cefazolin Sodium 50 ml @ 100 mls/hr Q8HR IV 05/16/18 22:00 05/23/18 21:59 05/18/18 05:54 Dextrose (Dextrose 50%) 25 ml Q30M PRN IV Hypoglycemia 05/15/18 18:15 06/14/18 18:14 Dextrose (Dextrose 50%) 50 ml Q30M PRN IV Hypoglycemia 05/15/18 18:15 06/14/18 18:14 Diphenhydramine HCl (Benadryl) 25 mg Q6H PRN ORAL Itching/Pruritis 05/15/18 18:15 06/14/18 18:14 05/17/18 17:39 Gabapentin (Neurontin) 100 mg THREE TIMES A DAY ORAL 05/18/18 09:00 06/16/18 09:29 05/18/18 09:30 Heparin Sodium (Porcine) (Heparin 5000 units/ml) 5,000 units EVERY 12 HOURS SUBQ 05/16/18 21:00 06/15/18 20:59 05/18/18 09:31 Hydromorphone HCl (Dilaudid) 1 mg Q2H PRN SUBQ severe break through pain 05/18/18 09:15 05/25/18 09:14 Hydromorphone HCl (Dilaudid) 2 mg DAILYPRN PRN SUBQ dressing changes 05/18/18 11:45 05/25/18 11:44 Lactobacillus Acidophilus (Culturelle) 1 tab TWICE A DAY ORAL 05/17/18 18:00 06/16/18 17:59 05/18/18 09:30 Magnesium Hydroxide (Mom) 30 ml HSPRN PRN ORAL Constipation 05/15/18 18:15 06/14/18 18:14 Naloxone HCl (Narcan) 0.2 mg Q30M PRN IVP respiratory distress 05/18/18 09:15 06/17/18 09:14 Ondansetron HCl (Zofran) 4 mg Q6H PRN IVP Nausea & Vomiting 05/16/18 10:00 06/15/18 09:59 05/18/18 10:33 Oxycodone/ Acetaminophen (Percocet 10/325) 1 tab Q6H ORAL 05/18/18 10:00 05/25/18 09:14 05/18/18 10:28 Polyethylene Glycol (Miralax) 17 gm HSPRN PRN ORAL Constipation 05/15/18 18:15 06/14/18 18:14 05/18/18 10:33 Sodium Chloride 1,000 ml @ 75 mls/hr [id number] IV 05/15/18 19:15 06/14/18 19:14 05/17/18 20:42 Temazepam (Restoril) 7.5 mg DAILYPRN PRN ORAL Insomnia 05/16/18 10:00 05/23/18 09:59 Zolpidem Tartrate (Ambien) 5 mg DAILYPRN PRN ORAL Insomnia 05/16/18 12:45 05/23/18 09:59 GI: Plan Problems: (1) Crohns disease (2) Hidradenitis suppurativa of left axilla Plan Labs and chart reviewed, in terms of surgery the patient is cleared from GI standpoint to proceed. However, the patient is on scheduled Remicade which is a time sensitive medication that must be given on the scheduled day of her dose not exceeding 1 day. The hospital does not carry Remicade, therefore the patient was to be discharged or transferred prior to May 21, 2018. In terms of her inflammation markers, the elevation is most likely due to the stress of her recent surgery. The patient is to follow-up with her primary GI. Discussed with Dr. Terrazas. Thank you for this patient referral, we will follow. The patient was seen and examined at bedside and all new and available data was reviewed in the patients chart. I agree with the above findings, impression and plan. (Patient seen earlier today. Signature stamp does not reflect patient encounter time.). - MD Kira Aguillon AnhRangel IRBY May 18, 2018 10:56
--- NOTE | 2018-05-18 11:00 | NUR ---
CASE MANAGEMENT:REVIEW 05/18/18 SI: POD #2 HIDRADENITIS SUPPURATIVE LT AXILLA 100.4 92 18 106/65 96% ON RA WBC+12.6 ESR+21 CRP+4.2 IS: DILAUDID SQ Q2HRS PRN IV ANCEF Q8HRS HEPARIN SQ Q12 IVF@75/HR : MED/SURG STATUS 3 EAST PLAN: BLOOD CX PENDING IV ANTIBIOTICS
[2018-05-18 12:00] VITALS: BP 103/62
[2018-05-18] MEDS: HYDROmorphone 1mg/ml Carpuject SUBQ PRN ×3 (13:39→22:18)
--- NOTE | 2018-05-18 14:37 | Diagnostic Imaging Report ---
Indication: Cough Comparison: None A single view chest radiograph was obtained. Findings: Left hemidiaphragm is elevated. Heart size is normal. There is mild left basal atelectasis. Bones are unremarkable. Recent surgery noted with the skin gabo in the left axillary region. IMPRESSION: Left basal atelectasis
[2018-05-18] MEDS: Piperacillin/Tazobactam 3.375 GM in NS 110 ML IVPB SCH ×2 (14:44→21:19)
[2018-05-18 14:58] LABS: APPEARANCE,URINE CLEAR; BILIRUBIN, URINE NEGATIVE (NEGATIVE); COLOR,URINE PALE YELLOW; GLUCOSE, URINE (UA) NEGATIVE (NEGATIVE); KETONES,URINE NEGATIVE (NEGATIVE); LEUKOCYTE ESTERASE ,URINE 2+ (NEGATIVE); NITRITE,URINE NEGATIVE (NEGATIVE); PH,URINE 8 (4.5-8.0); PROTEIN,URINE NEGATIVE (NEGATIVE); UROBILINOGEN,URINE NORMAL MG/DL (0.0-1.0)
[2018-05-18 16:00] VITALS: BP 103/62
[2018-05-18] MEDS: DAPTOmycin 300 MG in NS 55 ML IV SCH (16:33)
--- NOTE | 2018-05-18 17:46 | Infectious Diseases Prog Note ---
Assessment/Plan Assessment/Plan Full consult dictated: A) 1) left axilla wound infection/hidradenitis suppurativa infection 2) ? sepsis, leukocytosis, fevers 3) s/p left axilla hidradenitis excision and flap elevation 4) pmh noted P) 1) daptomycin and zosyn 2) check cultures, chest x-ray negative 3) flap closure planned once patient stable 4) d/w Dr. Jeronimo 5) thank you Subjective Allergies: Coded Allergies: AZATHIOPRINE (Verified Allergy, Unknown, 05/15/18) DOCUSATE (Verified Allergy, Unknown, 05/15/18) ok for oral LATEX (Verified Allergy, Unknown, 05/15/18) VANCOMYCIN (Verified Allergy, Unknown, 05/15/18) BISACODYL (Verified Adverse Reaction, Severe, Rash, 05/15/18) Uncoded Allergies: IODINE CONTRAST (Allergy, Unknown, 05/15/18) TAPE (Allergy, Unknown, 05/15/18) Objective Vital Signs Last 24 Hour Vital Signs Date Time Temp Pulse Resp B/P (MAP) Pulse Ox O2 Delivery O2 Flow Rate FiO2 05/18/18 12:00 100.1 95 18 103/62 (76) 95 05/18/18 11:25 98.9 05/18/18 09:00 Room Air 05/18/18 08:00 05/18/18 05:05 99.6 05/18/18 04:45 99.6 05/18/18 04:00 100.0 92 18 106/65 (79) 96 05/18/18 04:00 18 05/18/18 00:00 18 05/18/18 00:00 100.4 98 18 109/66 (80) 95 05/17/18 22:30 100.6 05/17/18 21:00 Room Air 05/17/18 20:00 20 05/17/18 20:00 99.5 76 18 113/63 (80) 97 Height (Feet): 5 Height (Inches): 5.00 Weight (Pounds): 170 Microbiology Date/Time Source Procedure Growth Status 05/15/18 18:30 Blood Blood Culture - Preliminary NO GROWTH AFTER 48 HOURS Resulted 05/15/18 18:15 Blood Blood Culture - Preliminary NO GROWTH AFTER 48 HOURS Resulted Laboratory Tests Test 05/18/18 05:15 05/18/18 13:40 White Blood Count 12.6 K/UL (4.8-10.8) H Red Blood Count 3.96 M/UL (4.20-5.40) L Hemoglobin 11.4 G/DL (12.0-16.0) L Hematocrit 35.2 % (37.0-47.0) L Mean Corpuscular Volume 89 FL (80-99) Mean Corpuscular Hemoglobin 28.8 PG (27.0-31.0) Mean Corpuscular Hemoglobin Concent 32.4 G/DL (32.0-36.0) Red Cell Distribution Width 12.8 % (11.6-14.8) Platelet Count 209 K/UL (150-450) Mean Platelet Volume 5.8 FL (6.5-10.1) L Neutrophils (%) (Auto) 65.2 % (45.0-75.0) Lymphocytes (%) (Auto) 24.9 % (20.0-45.0) Monocytes (%) (Auto) 8.9 % (1.0-10.0) Eosinophils (%) (Auto) 0.2 % (0.0-3.0) Basophils (%) (Auto) 0.8 % (0.0-2.0) Erythrocyte Sedimentation Rate 21 MM/HR (0-20) H Sodium Level 139 MMOL/L (136-145) Potassium Level 3.7 MMOL/L (3.5-5.1) Chloride Level 103 MMOL/L (98-107) Carbon Dioxide Level 28 MMOL/L (21-32) Anion Gap 8 mmol/L (5-15) Blood Urea Nitrogen 8 mg/dL (7-18) Creatinine 0.8 MG/DL (0.55-1.30) Estimat Glomerular Filtration Rate > 60 mL/min (>60) Glucose Level 100 MG/DL (74-106) Calcium Level 8.4 MG/DL (8.5-10.1) L C-Reactive Protein, Quantitative 4.2 mg/dL (0.00-0.90) H Urine Color Pale yellow Urine Appearance Clear Urine pH 8 (4.5-8.0) Urine Specific [place] 1.010 (1.005-1.035) Urine Protein Negative (NEGATIVE) Urine Glucose (UA) Negative (NEGATIVE) Urine Ketones Negative (NEGATIVE) Urine Blood 1+ (NEGATIVE) H Urine Nitrite Negative (NEGATIVE) Urine Bilirubin Negative (NEGATIVE) Urine Urobilinogen Normal MG/DL (0.0-1.0) Urine Leukocyte Esterase 2+ (NEGATIVE) H Urine RBC 0-2 /HPF (0 - 2) Urine WBC 2-4 /HPF (0 - 2) Urine Squamous Epithelial Cells Few /LPF (NONE/OCC) Urine Bacteria Occasional /HPF (NONE) Urine Yeast Occasional /HPF (NONE) H Current Medications Medications (Trade) Dose Ordered Sig/Alix Route PRN Reason Start Time Stop Time Status Last Admin Dose Admin Acetaminophen (Tylenol) 650 mg Q4H PRN ORAL FEVER 05/16/18 10:00 06/15/18 09:59 05/18/18 10:55 Aripiprazole (Abilify) 2 mg DAILY ORAL 05/16/18 09:00 06/15/18 08:59 05/18/18 09:30 Daptomycin 300 mg/ Sodium Chloride 55 ml @ 100 mls/hr Q24H IV 05/18/18 16:00 05/25/18 15:59 05/18/18 16:33 Dextrose (Dextrose 50%) 25 ml Q30M PRN IV Hypoglycemia 05/15/18 18:15 06/14/18 18:14 Dextrose (Dextrose 50%) 50 ml Q30M PRN IV Hypoglycemia 05/15/18 18:15 06/14/18 18:14 Diphenhydramine HCl (Benadryl) 25 mg Q6H PRN ORAL Itching/Pruritis 05/15/18 18:15 06/14/18 18:14 05/17/18 17:39 Gabapentin (Neurontin) 100 mg THREE TIMES A DAY ORAL 05/18/18 09:00 06/16/18 09:29 05/18/18 13:17 Heparin Sodium (Porcine) (Heparin 5000 units/ml) 5,000 units EVERY 12 HOURS SUBQ 05/16/18 21:00 06/15/18 20:59 05/18/18 09:31 Hydromorphone HCl (Dilaudid) 1 mg Q2H PRN SUBQ severe break through pain 05/18/18 09:15 05/25/18 09:14 05/18/18 13:39 Hydromorphone HCl (Dilaudid) 2 mg DAILYPRN PRN SUBQ dressing changes 05/18/18 11:45 05/25/18 11:44 05/18/18 12:02 Lactobacillus Acidophilus (Culturelle) 1 tab TWICE A DAY ORAL 05/17/18 18:00 06/16/18 17:59 05/18/18 09:30 Magnesium Hydroxide (Mom) 30 ml HSPRN PRN ORAL Constipation 05/15/18 18:15 06/14/18 18:14 Naloxone HCl (Narcan) 0.2 mg Q30M PRN IVP respiratory distress 05/18/18 09:15 06/17/18 09:14 Ondansetron HCl (Zofran) 4 mg Q6H PRN IVP Nausea & Vomiting 05/16/18 10:00 06/15/18 09:59 05/18/18 16:57 Oxycodone/ Acetaminophen (Percocet 10/325) 1 tab Q6H ORAL 05/18/18 10:00 05/25/18 09:14 05/18/18 16:33 Piperacillin Sod/ Tazobactam Sod 3.375 gm/Sodium Chloride 110 ml @ 27.5 mls/hr EVERY 8 HOURS IVPB 05/18/18 14:00 05/23/18 13:59 05/18/18 14:44 Polyethylene Glycol (Miralax) 17 gm HSPRN PRN ORAL Constipation 05/15/18 18:15 06/14/18 18:14 05/18/18 10:33 Sodium Chloride 1,000 ml @ 75 mls/hr [id number] IV 05/15/18 19:15 06/14/18 19:14 05/18/18 13:17 Temazepam (Restoril) 7.5 mg DAILYPRN PRN ORAL Insomnia 05/16/18 10:00 05/23/18 09:59 Zolpidem Tartrate (Ambien) 5 mg DAILYPRN PRN ORAL Insomnia 05/16/18 12:45 05/23/18 09:59 Niya Holley MD May 18, 2018 17:46
--- NOTE | 2018-05-18 18:10 | General Progress Note ---
Assessment/Plan Assessment/Plan 22 year old female with PMH of Crohns disease on remicade (Next dose 05/21/18), anxiety and hidradenitis suppurativa presents with pain in L axilla region with open wound with drainage. #Hidradenitis suppurative on L axilla s/p surgery at OSH with open wound #Possible wound infection/abscess s/p Excision of the left axillary hidradenitis tissue and Elevation of a fasciocutaneous left lateral chest wall flap POD #2 #Fevers possible 2/2 crohns flare vs infectious causes -plastic surgery (Dr. Brambila) consult appreciated -IV Ancef 1gr Q8hrs changed to Daptomycin (vanc allergy) and Zosyn (05/18- ) -f/u Blood cultures on admission and repeated today -pain not controlled on [employer] dilauded- [employer] discontinued -Pain management consult appreciated -Gabapentin decreased to 100mg TID due to intolerance - Encourage mobilization/ambulation - Encourage incentive spirometry to optimize pulmonary hygiene - DVT/GI prophylaxis as appropriate - SCD -Pending LE US to r/o dvt --Plan for OR monday for flap transfer and closure of L axillary wound -ID consult appreciated #Crohns disease -on remicade - next dose 05/21/18 -GI consult appreciated, - cleared for surgery -CTM #Anxiety -home meds restarted Code status Prick Stitcher of note, may not reflect time of encounter I spent 45 min on this patients care, and 35 min was dedicated to counseling and /or care coordination Subjective Date patient seen: May 18, 2018 Allergies: Coded Allergies: AZATHIOPRINE (Verified Allergy, Unknown, 05/15/18) DOCUSATE (Verified Allergy, Unknown, 05/15/18) ok for oral LATEX (Verified Allergy, Unknown, 05/15/18) VANCOMYCIN (Verified Allergy, Unknown, 05/15/18) BISACODYL (Verified Adverse Reaction, Severe, Rash, 05/15/18) Uncoded Allergies: IODINE CONTRAST (Allergy, Unknown, 05/15/18) TAPE (Allergy, Unknown, 05/15/18) Subjective Pt febrile overnight and this afternoon, fever workup sent, antibiotics changed to Daptomycin and Zosyn. Pt complaining of nausea and constipation, Zofran and miralax given, had BM. Evaluated by GI and ID. OR rescheduled for Monday Objective Last 24 Hour Vital Signs Date Time Temp Pulse Resp B/P (MAP) Pulse Ox O2 Delivery O2 Flow Rate FiO2 05/18/18 12:00 100.1 95 18 103/62 (76) 95 05/18/18 11:25 98.9 05/18/18 09:00 Room Air 05/18/18 08:00 05/18/18 05:05 99.6 05/18/18 04:45 99.6 05/18/18 04:00 100.0 92 18 106/65 (79) 96 05/18/18 04:00 18 05/18/18 00:00 18 05/18/18 00:00 100.4 98 18 109/66 (80) 95 05/17/18 22:30 100.6 05/17/18 21:00 Room Air 05/17/18 20:00 20 05/17/18 20:00 99.5 76 18 113/63 (80) 97 Intake and Output 05/17/18 05/18/18 19:00 07:00 Intake Total 75 ml 1165 ml Balance 75 ml 1165 ml Intake Oral 240 ml IV Total 75 ml 925 ml # Voids 2 Laboratory Tests 05/18/18 05:15: White Blood Count 12.6H, Red Blood Count 3.96L, Hemoglobin 11.4L, Hematocrit 35.2L, Mean Corpuscular Volume 89, Mean Corpuscular Hemoglobin 28.8, Mean Corpuscular Hemoglobin Concent 32.4, Red Cell Distribution Width 12.8, Platelet Count 209, Mean Platelet Volume 5.8L, Neutrophils (%) (Auto) 65.2, Lymphocytes ( %) (Auto) 24.9, Monocytes (%) (Auto) 8.9, Eosinophils (%) (Auto) 0.2, Basophils (%) (Auto) 0.8, Erythrocyte Sedimentation Rate 21H, Sodium Level 139, Potassium Level 3.7, Chloride Level 103, Carbon Dioxide Level 28, Anion Gap 8, Blood Urea Nitrogen 8, Creatinine 0.8, Estimat Glomerular Filtration Rate > 60, Glucose Level 100, Calcium Level 8.4L, C-Reactive Protein, Quantitative 4.2H 05/18/18 13:40: Urine Color Pale yellow, Urine Appearance Clear, Urine pH 8, Urine Specific [place] 1.010, Urine Protein Negative, Urine Glucose (UA) Negative, Urine Ketones Negative, Urine Blood 1+H, Urine Nitrite Negative, Urine Bilirubin Negative, Urine Urobilinogen Normal, Urine Leukocyte Esterase 2+H, Urine RBC 0-2 , Urine WBC 2-4, Urine Squamous Epithelial Cells Few, Urine Bacteria Occasional , Urine Yeast OccasionalH Height (Feet): 5 Height (Inches): 5.00 Weight (Pounds): 170 Objective General Appearance: WD/WN, moddistress, alert Lines, tubes and drains: peripheral HEENT: normocephalic, atraumatic, anicteric Neck: non-tender, normal alignment, supple Respiratory/Chest: chest wall non-tender, lungs clear, normal breath sounds, no respiratory distress Cardiovascular/Chest: normal peripheral pulses, normal rate, regular rhythm Abdomen: normal bowel sounds, non tender, soft, no organomegaly Extremities: normal range of motion, non-tender, normal inspection, no calf tenderness Skin Exam: normal pigmentation, warm/dry, other - Left axilla with dressing CDI 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
--- NOTE | 2018-05-18 19:30 | NUR ---
HAND-OFF: Report given to Mirtha FITZGERALD. Patient is stable.
--- NOTE | 2018-05-18 19:31 | NUR ---
NURSE NOTES: Received report & pt from LIA Gil. Pt lying in bed. a&ox4, in room air, family member at bedside. No s/s of acute distress & c/o 6/10 pain. Will give PRN pain med when due & pt verbalized understanding. IV site intact with IVF running as ordered. Surgical dressing C/D/I. Per pt, she feels that the dressing is leaking. Will change dressing later. Bed in lowest position, call light within reach. Will continue to monitor.
[2018-05-18 20:00] VITALS: BP 106/61
--- NOTE | 2018-05-18 21:30 | NUR ---
NURSE NOTES: Dr. Brambila called to know how the pt is doing. Updated MD, also informed MD that pt is afebrile so far with 2000 temp 98.1 oral.
--- NOTE | 2018-05-18 22:45 | NUR ---
NURSE NOTES: Changed dressing, dressing saturated. No bleeding noted & no foul odor. Medicated pt with pain med before dressing change. Pt tolerated very well.
[2018-05-19] VITALS: BP 100/61
[2018-05-19] MEDS: HYDROmorphone 1mg/ml Carpuject SUBQ PRN ×3 (03:00→20:26)
--- NOTE | 2018-05-19 03:45 | Consultation ---
DATE OF CONSULTATION: 05/18/2018 INFECTIOUS DISEASE CONSULTATION CONSULTING PHYSICIAN: Niya Holley M.D. ATTENDING PHYSICIAN: Mary Cabrera M.D. REFERRING PHYSICIAN: Celeste Schuster M.D. REASON FOR CONSULTATION: Fevers, leukocytosis, infected left axilla wound with hidradenitis suppurativa. CHIEF COMPLAINT: The patient's chief complaint coming to the hospital is infected left axilla wound and hidradenitis suppurativa. HISTORY OF PRESENT ILLNESS: This is a very pleasant 22-year-old female who has a history of hidradenitis suppurativa and also history of Crohn disease and is on Remicade. The patient presented to [facility] with infected left axilla hidradenitis and infected wound. The patient is status post surgery, which included left axillary tissue excision and flap elevation. The patient now has fevers and was on Ancef. Case was discussed with Dr. Schuster and the patient was changed to daptomycin and Zosyn since she is allergic to vancomycin and discussed with Dr. Schuster if she could be on medications that have interactions with linezolid. The patient was started on daptomycin and Zosyn and the patient has a culture. Chest x-ray shows only atelectasis, and UA had only 2 to 4 white cells and 0 to 2 white cells, two different urinalysis. Infectious Disease consultation was requested for antibiotic management by Dr. Schuster. We will also plan on wound closure, flap closure once the patient is stable. REVIEW OF SYSTEMS: CONSTITUTIONAL: She has generalized fatigue, but no focal weakness. She has fevers and chills. HEAD AND NECK: No head pain, neck pain. CARDIAC: No chest pain. GASTROINTESTINAL: No nausea, vomiting, or diarrhea. GENITOURINARY: No dysuria, frequency. PULMONARY: No congestion or shortness of breath. She has left axilla pain. No rash or itching. Seizure activity. No hemoptysis or secretions. PAST MEDICAL HISTORY: The patient has a past medical history of hidradenitis suppurativa of the left axilla. She also has history of anxiety. She has a history of Crohn disease. She has no history of diabetes or hypertension. She has a history of surgeries in the past for the hidradenitis. ALLERGIES: Include azithromycin, bisacodyl, docusate, iodine contrast, latex, tape, and vancomycin. SOCIAL HISTORY: Negative for smoking, alcohol, or drug abuse. FAMILY HISTORY: Noncontributory. MEDICATIONS: Upon reviewing the MAR, she is on the following medications. She is on daptomycin, Zosyn, hydromorphone, Dilaudid, oxycodone. She is on Narcan as needed. She is on gabapentin, Neurontin, daptomycin, Zosyn, Lactobacillus, heparin, zolpidem. She was on Ancef, which she discontinued. She is on Zofran, temazepam, Tylenol, Abilify, , MiraLAX, and Benadryl. Outside medications noted and reconciliated. PHYSICAL EXAMINATION: VITAL SIGNS: Temperature 100.1, T-max 100.6, pulse rate 95, respiratory rate 18, blood pressure 103/62, and saturation 95%. GENERAL: Alert and responsive, in no acute distress. Oriented x3. HEAD AND NECK: Oral exam, no thrush. Eye exam, no icterus. Neck is supple. No JVD. Normocephalic. HEART: Regular. No obvious gallop or murmur. ABDOMEN: Soft. Positive bowel sounds. Nontender. LUNGS: Clear bilaterally. No rhonchi or rales. SKIN: Without rash. MUSCULOSKELETAL: No effusion. Legs are without cellulitis. PERIPHERAL VASCULAR: No cyanosis or gangrene. : She has no Simmons. LINES: Line sites without phlebitis. NEUROLOGIC: Intact. Nonfocal. Her left axilla is covered and she showed me pictures that were taken on her cellphone and they look like infected wound. The patient's wound was covered and she says it is too painful to look at to open the wounds. So, the exam otherwise deferred. Surgery notes were reviewed. LABORATORY AND DIAGNOSTIC DATA: Laboratory data as follows, UA had 2 to 4 white cells in the urinalysis. Creatinine 0.8. White count 13.6, now 12.6, hemoglobin 11.4, and platelet count . Cultures are pending. Recent blood and urine cultures were unremarkable. Urine culture with mixed urogenital contaminants and blood cultures negative, however, she has been re-cultured. Chest x-ray on 05/18/2018 showed atelectasis in the left base, this was from today. ASSESSMENT AND PLAN: 1. The patient has infected left axilla wound with hidradenitis suppurativa. The patient has infected hidradenitis. The patient is status post excision of hidradenitis tissue and flap elevation. There is plan on closure of the flap or wound. The patient was on Ancef. The patient is now spiking temperatures with elevated white count and fevers, rule out early sepsis. Continue antibiotics. We will change antibiotics to daptomycin and Zosyn. Check cultures and laboratories. Chest x-ray revealed atelectasis. Once the patient is stable, then clear for surgery, however, we will have to monitor temperatures and also white count and also follow up on cultures. Continue daptomycin and Zosyn for now. 2. The patient has a history of anxiety. 3. Crohn disease. She is on Remicade. 4. History of hidradenitis suppurativa, multiple surgeries. 5. Allergies to azithromycin, bisacodyl, docusate, iodine contrast, latex, tape, and vancomycin. 6. Social history is negative. 7. Family history is noncontributory. 8. MAR was noted. 9. Case was discussed with RN. 10. Continue treatment per primary consultants. 11. Case was discussed with the patient 12. Case was discussed with Dr. Celeste Schuster, primary care. Niya Holley M.D. DR: FABIEN JOB#: [id number] CC:
[2018-05-19 04:59] VITALS: BP 103/63
[2018-05-19] MEDS: Piperacillin/Tazobactam 3.375 GM in NS 110 ML IVPB SCH ×3 (05:01→21:46)
--- NOTE | 2018-05-19 05:13 | NUR ---
NURSE NOTES: oral temp 100.7F. Informed Dr. Brambila regarding temp. Encouraged IS use & cooling measures provided. Tylenol PO also given. Will continue to monitor
--- NOTE | 2018-05-19 05:39 | NUR ---
NURSE NOTES: Rechecked temp 100.3F oral
--- NOTE | 2018-05-19 07:12 | NUR ---
HAND-OFF: Report given to LIA Gilbert.
--- NOTE | 2018-05-19 07:12 | NUR ---
NURSE NOTES:WALKING ROUNDS WITH NIGHT RN(NALLELY),SLEEPY BUT AROUSABLE , SITE PATENT,LEFT AXILLA JUAN C/D/I. WILL CONTINUE PLAN OF CARE
[2018-05-19 08:00] VITALS: BP 100/55
--- NOTE | 2018-05-19 08:25 | NUR ---
NURSE NOTES:SEEN BY ,UPDATED RE: TEMP.PLAN FOR WOUND CLOSURE SX ON MONDAY.
--- NOTE | 2018-05-19 08:26 | General Progress Note ---
Progress Note Progress Note Pt seen and examined. POD# 3 from excision of left axillary HS and flap elevation. Appreciate IDs input. Still with low grade fevers last night but normal temp this AM on last check as per the nurse. Overall she looks better than yesterday. Will ambulate today and shower. Will add nystatin powder to wound periphery for what appears to be a possible fungal rash. Plan for OR on Monday for closure of wound. MD Patty Varma Amir MD May 19, 2018 08:26
[2018-05-19 08:42] LABS: BASOPHILS % (AUTO) 1.1 % (0.0-2.0); EOSINOPHILS % (AUTO) 0.2 % (0.0-3.0); HEMATOCRIT 33.3 % (37.0-47.0); HEMOGLOBIN 11.1 G/DL (12.0-16.0); LYMPHOCYTES % (AUTO) 15.6 % (20.0-45.0); MEAN CORPUSCULAR VOLUME 88 FL (80-99); MONOCYTES % (AUTO) 8.7 % (1.0-10.0); NEUTROPHILS % (AUTO) 74.4 % (45.0-75.0); PLATELET COUNT 164 K/UL (150-450); RED BLOOD COUNT 3.78 M/UL (4.20-5.40); RED CELL DISTRIBUTION WIDTH 12.6 % (11.6-14.8); WHITE BLOOD COUNT 11.2 K/UL (4.8-10.8)
--- NOTE | 2018-05-19 08:45 | General Progress Note ---
Assessment/Plan Assessment/Plan 22 year old female with PMH of Crohns disease on remicade (Next dose 05/21/18), anxiety and hidradenitis suppurativa presents with pain in L axilla region with open wound with drainage. #Hidradenitis suppurative on L axilla s/p surgery at OSH with open wound #Possible wound infection/abscess s/p Excision of the left axillary hidradenitis tissue and Elevation of a fasciocutaneous left lateral chest wall flap POD #3 #Fevers possible 2/2 crohns flare vs infectious causes -plastic surgery (Dr. Brambila) consult appreciated -IV Ancef 1gr Q8hrs changed to Daptomycin (vanc allergy) and Zosyn (05/18- ) -f/u Blood cultures on admission and repeated today -pain not controlled on FINISHER PLATE dilauded- FINISHER PLATE discontinued -Pain management consult appreciated -Gabapentin decreased to 100mg TID due to intolerance - Encourage mobilization/ambulation - Encourage incentive spirometry to optimize pulmonary hygiene - DVT/GI prophylaxis as appropriate - SCD -Pending LE US to r/o dvt --Plan for OR monday for flap transfer and closure of L axillary wound -ID consult appreciated #Crohns disease -on remicade - next dose 05/21/18 -GI consult appreciated, - cleared for surgery -CTM #Anxiety - c/w home meds Code status Auto Haulaway Driver of note, may not reflect time of encounter I spent 45 min on this patients care, and 35 min was dedicated to counseling and /or care coordination Subjective Date patient seen: May 19, 2018 Allergies: Coded Allergies: AZATHIOPRINE (Verified Allergy, Unknown, 05/15/18) DOCUSATE (Verified Allergy, Unknown, 05/15/18) ok for oral LATEX (Verified Allergy, Unknown, 05/15/18) VANCOMYCIN (Verified Allergy, Unknown, 05/15/18) BISACODYL (Verified Adverse Reaction, Severe, Rash, 05/15/18) Uncoded Allergies: IODINE CONTRAST (Allergy, Unknown, 05/15/18) TAPE (Allergy, Unknown, 05/15/18) Subjective no acute events tm 100.7 tolerating abx, expanded w/ zosyn surg re scheduled for mon c/o nausea & moderate pain tolerating po in small amounts had BM yesterday Objective Last 24 Hour Vital Signs Date Time Temp Pulse Resp B/P (MAP) Pulse Ox O2 Delivery O2 Flow Rate FiO2 05/19/18 08:00 98.2 99 18 100/55 (70) 96 05/19/18 07:30 Room Air 05/19/18 05:39 100.3 05/19/18 05:39 100.3 05/19/18 04:59 100.7 110 18 103/63 (76) 94 05/19/18 00:00 98.8 98 18 100/61 (74) 95 05/18/18 21:00 Room Air 05/18/18 20:00 98.1 102 17 106/61 (76) 95 05/18/18 16:00 98.9 95 18 103/62 (76) 94 05/18/18 12:00 100.1 95 18 103/62 (76) 95 05/18/18 09:00 Room Air Intake and Output 05/18/18 05/19/18 19:00 07:00 Intake Total 75 ml 1380 ml Balance 75 ml 1380 ml Intake Oral 480 ml IV Total 75 ml 900 ml # Voids 3 # Bowel Movements 1 Laboratory Tests 05/18/18 13:40: Urine Color Pale yellow, Urine Appearance Clear, Urine pH 8, Urine Specific [place] 1.010, Urine Protein Negative, Urine Glucose (UA) Negative, Urine Ketones Negative, Urine Blood 1+H, Urine Nitrite Negative, Urine Bilirubin Negative, Urine Urobilinogen Normal, Urine Leukocyte Esterase 2+H, Urine RBC 0-2 , Urine WBC 2-4, Urine Squamous Epithelial Cells Few, Urine Bacteria Occasional , Urine Yeast OccasionalH 05/19/18 07:47: White Blood Count [Pending], Red Blood Count [Pending], Hemoglobin [Pending], Hematocrit [Pending], Mean Corpuscular Volume [Pending], Mean Corpuscular Hemoglobin [Pending], Mean Corpuscular Hemoglobin Concent [Pending], Red Cell Distribution Width [Pending], Platelet Count [Pending], Mean Platelet Volume [ Pending], Neutrophils (%) (Auto) [Pending], Lymphocytes (%) (Auto) [Pending], Monocytes (%) (Auto) [Pending], Eosinophils (%) (Auto) [Pending], Basophils (%) (Auto) [Pending], Prothrombin Time [Pending], Prothromb Time International Ratio [Pending], Activated Partial Thromboplast Time [Pending], Sodium Level [ Pending], Potassium Level [Pending], Chloride Level [Pending], Carbon Dioxide Level [Pending], Blood Urea Nitrogen [Pending], Creatinine [Pending], Estimat Glomerular Filtration Rate [Pending], Glucose Level [Pending], Calcium Level [ Pending] Height (Feet): 5 Height (Inches): 5.00 Weight (Pounds): 170 Objective General Appearance: WD/WN, moddistress, alert Lines, tubes and drains: peripheral HEENT: normocephalic, atraumatic, anicteric Neck: non-tender, normal alignment, supple Respiratory/Chest: chest wall non-tender, lungs clear, normal breath sounds, no respiratory distress Cardiovascular/Chest: normal peripheral pulses, normal rate, regular rhythm Abdomen: normal bowel sounds, non tender, soft, no organomegaly Extremities: normal range of motion, non-tender, normal inspection, no calf tenderness Skin Exam: normal pigmentation, warm/dry, other - Left axilla with dressing CDI Neurologic: scientific informatics analyst II-XII grossly normal Musculoskeletal: normal muscle bulk Tom Duran MD May 19, 2018 08:45
[2018-05-19 08:51] LABS: INR 1.1 (0.9-1.1)
[2018-05-19] MEDS: ARIPiprazole 2mg tab ORAL SCH (08:58)
[2018-05-19] MEDS: Lactobacillus-GG tablet ORAL SCH ×2 (08:58→18:48)
--- NOTE | 2018-05-19 08:59 | General Progress Note ---
Assessment/Plan Problem List: (1) Hidradenitis suppurativa of left axilla ICD Codes: L73.2 - Hidradenitis suppurativa SNOMED: 643355689 (2) Crohns disease ICD Codes: K50.90 - Crohn's disease, unspecified, without complications SNOMED: 34037425 Assessment/Plan surg was post pond to Monday due to low grade fever Remicade pushed for one week per patient primary GI abx per ID pending surg will fu Subjective ROS Limited/Unobtainable: Yes Allergies: Coded Allergies: AZATHIOPRINE (Verified Allergy, Unknown, 05/15/18) DOCUSATE (Verified Allergy, Unknown, 05/15/18) ok for oral LATEX (Verified Allergy, Unknown, 05/15/18) VANCOMYCIN (Verified Allergy, Unknown, 05/15/18) BISACODYL (Verified Adverse Reaction, Severe, Rash, 05/15/18) Uncoded Allergies: IODINE CONTRAST (Allergy, Unknown, 05/15/18) TAPE (Allergy, Unknown, 05/15/18) Objective Last 24 Hour Vital Signs Date Time Temp Pulse Resp B/P (MAP) Pulse Ox O2 Delivery O2 Flow Rate FiO2 05/19/18 08:00 98.2 99 18 100/55 (70) 96 05/19/18 07:30 Room Air 05/19/18 05:39 100.3 05/19/18 05:39 100.3 05/19/18 04:59 100.7 110 18 103/63 (76) 94 05/19/18 00:00 98.8 98 18 100/61 (74) 95 05/18/18 21:00 Room Air 05/18/18 20:00 98.1 102 17 106/61 (76) 95 05/18/18 16:00 98.9 95 18 103/62 (76) 94 05/18/18 12:00 100.1 95 18 103/62 (76) 95 05/18/18 09:00 Room Air Intake and Output 05/18/18 05/19/18 19:00 07:00 Intake Total 75 ml 1380 ml Balance 75 ml 1380 ml Intake Oral 480 ml IV Total 75 ml 900 ml # Voids 3 # Bowel Movements 1 Laboratory Tests 05/18/18 13:40: Urine Color Pale yellow, Urine Appearance Clear, Urine pH 8, Urine Specific [place] 1.010, Urine Protein Negative, Urine Glucose (UA) Negative, Urine Ketones Negative, Urine Blood 1+H, Urine Nitrite Negative, Urine Bilirubin Negative, Urine Urobilinogen Normal, Urine Leukocyte Esterase 2+H, Urine RBC 0-2 , Urine WBC 2-4, Urine Squamous Epithelial Cells Few, Urine Bacteria Occasional , Urine Yeast OccasionalH 05/19/18 07:47: White Blood Count 11.2H, Red Blood Count 3.78L, Hemoglobin 11.1L, Hematocrit 33.3L, Mean Corpuscular Volume 88, Mean Corpuscular Hemoglobin 29.3, Mean Corpuscular Hemoglobin Concent 33.2, Red Cell Distribution Width 12.6, Platelet Count 164, Mean Platelet Volume 6.0L, Neutrophils (%) (Auto) 74.4, Lymphocytes ( %) (Auto) 15.6L, Monocytes (%) (Auto) 8.7, Eosinophils (%) (Auto) 0.2, Basophils (%) (Auto) 1.1, Prothrombin Time [Pending], Prothromb Time International Ratio [Pending], Activated Partial Thromboplast Time [Pending], Sodium Level [Pending], Potassium Level [Pending], Chloride Level [Pending], Carbon Dioxide Level [Pending], Blood Urea Nitrogen [Pending], Creatinine [ Pending], Estimat Glomerular Filtration Rate [Pending], Glucose Level [Pending] , Calcium Level [Pending] Height (Feet): 5 Height (Inches): 5.00 Weight (Pounds): 170 General Appearance: alert EENT: normal ENT inspection Neck: supple Cardiovascular: normal rate Respiratory/Chest: lungs clear Abdomen: normal bowel sounds, non tender, soft Extremities: non-tender Moshe Terrazas MD May 19, 2018 08:59
[2018-05-19] MEDS: Heparin 5000 units/ml inj SUBQ SCH ×2 (09:00→20:42)
[2018-05-19 09:03] LABS: ANION GAP 8 mmol/L (5-15); BLOOD UREA NITROGEN 5 mg/dL (7-18); CALCIUM 8.1 MG/DL (8.5-10.1); CARBON DIOXIDE 27 MMOL/L (21-32); CHLORIDE 102 MMOL/L (98-107); CREATININE 0.7 MG/DL (0.55-1.30); POTASSIUM 3.3 MMOL/L (3.5-5.1); SODIUM 137 MMOL/L (136-145)
--- NOTE | 2018-05-19 11:30 | NUR ---
NURSE NOTES:ASSISTED TO SHOWER.TOLERATED WELL.
[2018-05-19 11:36] VITALS: BP 102/59
--- NOTE | 2018-05-19 14:00 | NUR ---
CASE MANAGEMENT: REVIEW SI: HIDRADENITIS BILATERAL AXILLA LEFT AXILLA DEBRIDEMENT w/FLAP 05/16 T 100.7 HR 110 RR 18 BP 100/55 SAT 94% ROOM AIR WBC 11.2 H/H 11.1/33.3 IS: NYSTATIN TOPICAL QD DAPTOMYCIN IV Q24HR ZOSYN IV Q8HR DILAUDID SQ QD PRN MED/SURG STATUS DCP: PATIENT IS FROM HOME
[2018-05-19 16:00] VITALS: BP 118/63
--- NOTE | 2018-05-19 16:20 | NUR ---
NURSE NOTES:MESSAGE LEFT TO RE:KGina3.3.AWAITING FOR CALL BACK.
[2018-05-19] MEDS: DAPTOmycin 300 MG in NS 55 ML IV SCH (16:39)
--- NOTE | 2018-05-19 19:31 | NUR ---
HAND-OFF: Report given to CYDNEY FITZGERALD,.
--- NOTE | 2018-05-19 19:32 | NUR ---
NURSE NOTES: PATIENT IN BED, AOX4. COMPLAINS OF IV BEING PAINFUL, IV FLUIDS STOPPED. WILL ATTEMPT NEW IV ACCESS. NO COMPLAINTS OF PAIN AT THIS TIME. NO S/S DISTRESS NOTED. LEFT AXILLA DRESSING DRY AND INTACT. FAMILY AT BEDSIDE. BED IN LOWEST POSITION, CALL LIGHT WITHIN REACH. WILL CONTINUE TO MONITOR.
--- NOTE | 2018-05-19 19:35 | NUR ---
NURSE NOTES:DR. BUSTOS NOTIFIED RE:K.3.3 AND RED SPOT ON LEFT BREAST AREA.ORDERS CARRIED OUT.ENDORSED TO NIGHT RNSIDNEY)
[2018-05-19 20:00] VITALS: BP 110/71
[2018-05-19] MEDS: Miralax 17gm pkt ORAL PRN (21:30)
[2018-05-20 00:43] VITALS: BP 102/62
[2018-05-20] MEDS: HYDROmorphone 1mg/ml Carpuject SUBQ PRN ×3 (01:15→20:26)
[2018-05-20 04:59] VITALS: BP 104/62
[2018-05-20] MEDS: Piperacillin/Tazobactam 3.375 GM in NS 110 ML IVPB SCH ×3 (05:23→21:32)
--- NOTE | 2018-05-20 06:00 | NUR ---
NURSE NOTES: PATIENT IN BED, ASLEEP, V/S STABLE.
--- NOTE | 2018-05-20 07:30 | NUR ---
HAND-OFF: Report given to SAUD HURTADO RN.
[2018-05-20 08:00] VITALS: BP 96/60
--- NOTE | 2018-05-20 08:00 | NUR ---
NURSE NOTES: Received report from Meghana FITZGERALD, pt a/a/o x4 laying in bed with no signs of distress or other issues at this time. patient c/o of soreness in the axiliary/surgical site. surgical dressing dry and intact. RN will change dressing as directed per MD. IV on the right FAY gauge#22 running NS@75ml/hr. pt's father at bedside. call light within reach. bed in lowest position, side rales up x2. I will f/u as needed.
--- NOTE | 2018-05-20 08:25 | General Progress Note ---
Assessment/Plan Problem List: (1) Hidradenitis suppurativa of left axilla ICD Codes: L73.2 - Hidradenitis suppurativa SNOMED: 002528534 (2) Crohns disease ICD Codes: K50.90 - Crohn's disease, unspecified, without complications SNOMED: [id number] Assessment/Plan surg was post pond to Monday due to low grade fever still has low grade fever Remicade pushed for one week per patient primary GI abx per ID pending surg will fu Subjective ROS Limited/Unobtainable: Yes Allergies: Coded Allergies: AZATHIOPRINE (Verified Allergy, Unknown, 05/15/18) DOCUSATE (Verified Allergy, Unknown, 05/15/18) ok for oral LATEX (Verified Allergy, Unknown, 05/15/18) VANCOMYCIN (Verified Allergy, Unknown, 05/15/18) BISACODYL (Verified Adverse Reaction, Severe, Rash, 05/15/18) Uncoded Allergies: IODINE CONTRAST (Allergy, Unknown, 05/15/18) TAPE (Allergy, Unknown, 05/15/18) Objective Last 24 Hour Vital Signs Date Time Temp Pulse Resp B/P (MAP) Pulse Ox O2 Delivery O2 Flow Rate FiO2 05/20/18 05:53 100.4 05/20/18 04:59 99.5 87 19 104/62 (76) 94 05/20/18 01:45 100.4 05/20/18 01:44 99.1 05/20/18 01:44 99.1 05/20/18 01:16 100.4 107 05/20/18 00:43 113 19 102/62 (75) 95 05/19/18 20:26 Room Air 05/19/18 20:00 98.6 107 19 110/71 (84) 05/19/18 20:00 98.6 107 19 110/71 (84) 93 05/19/18 16:00 98.3 80 19 118/63 (81) 99 05/19/18 11:36 98.4 95 19 102/59 (73) 97 Intake and Output 05/19/18 05/20/18 19:00 07:00 Intake Total 735.0 ml 902.5 ml Balance 735.0 ml 902.5 ml Intake Oral 120 ml 240 ml IV Total 615.0 ml 662.5 ml # Voids 2 3 # Bowel Movements 1 2 Height (Feet): 5 Height (Inches): 5.00 Weight (Pounds): 170 General Appearance: alert EENT: normal ENT inspection Neck: supple Cardiovascular: normal rate Respiratory/Chest: decreased breath sounds Abdomen: soft, hypoactive bowel sounds, tender Extremities: non-tender Moshe Terrazas MD May 20, 2018 08:25
[2018-05-20] MEDS: ARIPiprazole 2mg tab ORAL SCH (08:47)
[2018-05-20] MEDS: Lactobacillus-GG tablet ORAL SCH ×2 (08:47→16:59)
[2018-05-20] MEDS: Heparin 5000 units/ml inj SUBQ SCH ×2 (08:48→20:30)
[2018-05-20 09:11] LABS: BASOPHILS % (AUTO) 0.6 % (0.0-2.0); HEMATOCRIT 35.8 % (37.0-47.0); HEMOGLOBIN 11.5 G/DL (12.0-16.0); LYMPHOCYTES % (AUTO) 26.4 % (20.0-45.0); MEAN CORPUSCULAR VOLUME 88 FL (80-99); MONOCYTES % (AUTO) 13.6 % (1.0-10.0); NEUTROPHILS % (AUTO) 58.4 % (45.0-75.0); PLATELET COUNT 203 K/UL (150-450); RED BLOOD COUNT 4.09 M/UL (4.20-5.40); RED CELL DISTRIBUTION WIDTH 12.4 % (11.6-14.8); WHITE BLOOD COUNT 9.7 K/UL (4.8-10.8)
[2018-05-20 09:18] LABS: ANION GAP 9 mmol/L (5-15); BLOOD UREA NITROGEN 8 mg/dL (7-18); CALCIUM 8.8 MG/DL (8.5-10.1); CARBON DIOXIDE 26 MMOL/L (21-32); CHLORIDE 105 MMOL/L (98-107); CREATININE 0.7 MG/DL (0.55-1.30); POTASSIUM 3.9 MMOL/L (3.5-5.1); SODIUM 140 MMOL/L (136-145)
--- NOTE | 2018-05-20 11:24 | General Progress Note ---
Assessment/Plan Assessment/Plan (1) Left Axilla pain (2) Left axillary open wound with infected hidradenitis (3) S/p Excision and elevation of left chest wall flap Pt will continue Neurontin, Percocet and Dilaudid. D/w Dr. Long and he concurred. Subjective Date patient seen: May 20, 2018 Time patient seen: 10:15 - am Constitutional: Reports: weakness HEENT: Reports: no symptoms Cardiovascular: Reports: no symptoms Respiratory: Reports: no symptoms Gastrointestinal/Abdominal: Reports: no symptoms Genitourinary: Reports: no symptoms Neurologic/Psychiatric: Reports: weakness Endocrine: Reports: no symptoms Hematologic/Lymphatic: Reports: no symptoms Allergies: Coded Allergies: AZATHIOPRINE (Verified Allergy, Unknown, 05/15/18) DOCUSATE (Verified Allergy, Unknown, 05/15/18) ok for oral LATEX (Verified Allergy, Unknown, 05/15/18) VANCOMYCIN (Verified Allergy, Unknown, 05/15/18) BISACODYL (Verified Adverse Reaction, Severe, Rash, 05/15/18) Uncoded Allergies: IODINE CONTRAST (Allergy, Unknown, 05/15/18) TAPE (Allergy, Unknown, 05/15/18) Subjective Patient is in bed with father at bedside. Patient is feeling better. Her pain has been tolerated well on the current regimen. Using 3 Dilaudid and 5 Percocet in the last 24hrs. Surgery has been scheduled for tomorrow. Objective Last 24 Hour Vital Signs Date Time Temp Pulse Resp B/P (MAP) Pulse Ox O2 Delivery O2 Flow Rate FiO2 05/20/18 09:00 Room Air 05/20/18 08:00 97.7 74 20 96/60 (72) 99 05/20/18 05:53 100.4 05/20/18 04:59 99.5 87 19 104/62 (76) 94 05/20/18 01:45 100.4 05/20/18 01:44 99.1 05/20/18 01:44 99.1 05/20/18 01:16 100.4 107 05/20/18 00:43 113 19 102/62 (75) 95 05/19/18 20:26 Room Air 05/19/18 20:00 98.6 107 19 110/71 (84) 05/19/18 20:00 98.6 107 19 110/71 (84) 93 3/30/19 16:00 98.3 80 19 118/63 (81) 99 05/19/18 11:36 98.4 95 19 102/59 (73) 97 Intake and Output 05/19/18 05/20/18 19:00 07:00 Intake Total 735.0 ml 902.5 ml Balance 735.0 ml 902.5 ml Intake Oral 120 ml 240 ml IV Total 615.0 ml 662.5 ml # Voids 2 3 # Bowel Movements 1 2 Laboratory Tests 05/20/18 08:53: White Blood Count 9.7, Red Blood Count 4.09L, Hemoglobin 11.5L, Hematocrit 35.8L , Mean Corpuscular Volume 88, Mean Corpuscular Hemoglobin 28.1, Mean Corpuscular Hemoglobin Concent 32.0, Red Cell Distribution Width 12.4, Platelet Count 203, Mean Platelet Volume 6.0L, Neutrophils (%) (Auto) 58.4, Lymphocytes ( %) (Auto) 26.4, Monocytes (%) (Auto) 13.6H, Eosinophils (%) (Auto) 1.0, Basophils (%) (Auto) 0.6, Sodium Level 140, Potassium Level 3.9, Chloride Level 105, Carbon Dioxide Level 26, Anion Gap 9, Blood Urea Nitrogen 8, Creatinine 0.7 , Estimat Glomerular Filtration Rate > 60, Glucose Level 100, Calcium Level 8.8 , Magnesium Level 1.8 Height (Feet): 5 Height (Inches): 5.00 Weight (Pounds): 170 General Appearance: no apparent distress, alert EENT: PERRL/EOMI, normal ENT inspection Neck: normal alignment, supple Cardiovascular: normal rate, regular rhythm Respiratory/Chest: lungs clear, normal breath sounds Abdomen: non tender, soft Extremities: other - bandages applied to left axilla Edema: no edema noted Arm (L), no edema noted Arm (R), no edema noted Leg (L), no edema noted Leg (R), no edema noted Pedal (L), no edema noted Pedal (R), no edema noted Generalized Neurologic: alert, oriented x 3 Skin: normal pigmentation Hao Aldana May 20, 2018 11:24
[2018-05-20 12:00] VITALS: BP 110/64
--- NOTE | 2018-05-20 13:00 | NUR ---
NURSE NOTES: RN changed surgical dressing as indicated by MD. I will f/u as needed.
--- NOTE | 2018-05-20 14:00 | Anethesia Preoperative Eval ---
Anesthesia Pre-op PMH/ROS General Date of Evaluation: May 20, 2018 Time of Evaluation: 13:59 ASA Score: ASA 2 Mallampati Score Class I : Soft palate, uvula, fauces, pillars visible Class II: Soft palate, uvula, fauces visible Class III: Soft palate, base of uvula visible Class IV: Only hard plate visible Mallampati Classification: Class II Surgeon: Patty Diagnosis: Hidradenitis Surgical Procedure: left flap of axilla wound Anesthesia History: none Family History: no anesthesia problems Allergies: Coded Allergies: AZATHIOPRINE (Verified Allergy, Unknown, 05/15/18) DOCUSATE (Verified Allergy, Unknown, 05/15/18) ok for oral LATEX (Verified Allergy, Unknown, 05/15/18) VANCOMYCIN (Verified Allergy, Unknown, 05/15/18) BISACODYL (Verified Adverse Reaction, Severe, Rash, 05/15/18) Uncoded Allergies: IODINE CONTRAST (Allergy, Unknown, 05/15/18) TAPE (Allergy, Unknown, 05/15/18) Medications: see eMAR Patient NPO?: Yes NPO Date: May 18, 2018 NPO Time: 0000 Past Medical History Cardiovascular: Denies: HTN, CAD, PA, valve dz, arrhythmia, other Pulmonary: Denies: asthma, COPD, INDIRA, other Gastrointestinal/Genitourinary: Reports: other - Crohns; Denies: GERD, CRI, ESRD Neurologic/Psychiatric: Reports: depression/anxiety; Denies: dementia, CVA, TIA, other Endocrine: Denies: DM, hypothyroidism, steroids, other HEENT: Denies: cataract (L), cataract (R), glaucoma, [place] (L), [place] (R), other Hematology/Immune: Reports: anemia Musculoskeletal/Integumentary: Denies: OA, RA, DJD, DDD, edema, other PMH Narrative: current temp 100.5 ; white counts down; vss PSxH Narrative: multiple surgeries; case was cancelled on monday due to high temp and elevated white count; Anesthesia Pre-op Phys. Exam Physician Exam Last Vital Signs Date Time Temp Pulse Resp B/P (MAP) Pulse Ox O2 Delivery O2 Flow Rate FiO2 05/20/18 12:13 100.4 05/20/18 09:00 Room Air 05/20/18 08:00 74 20 96/60 (72) 99 05/16/18 13:00 3 Constitutional: NAD Neurologic: CN 2-12 intact Cardiovascular: RRR Respiratory: CTA Gastrointestinal: S/NT/ND Airway Exam Mallampati Classification 2 Mallampati Score: Class II MO: full Neck: normal ROM: full Dentures: no upper, no lower Anesthesia Pre-op A/P Labs Hematology Test 05/20/18 08:53 White Blood Count 9.7 K/UL (4.8-10.8) Red Blood Count 4.09 M/UL (4.20-5.40) L Hemoglobin 11.5 G/DL (12.0-16.0) L Hematocrit 35.8 % (37.0-47.0) L Mean Corpuscular Volume 88 FL (80-99) Mean Corpuscular Hemoglobin 28.1 PG (27.0-31.0) Mean Corpuscular Hemoglobin Concent 32.0 G/DL (32.0-36.0) Red Cell Distribution Width 12.4 % (11.6-14.8) Platelet Count 203 K/UL (150-450) Mean Platelet Volume 6.0 FL (6.5-10.1) L Neutrophils (%) (Auto) 58.4 % (45.0-75.0) Lymphocytes (%) (Auto) 26.4 % (20.0-45.0) Monocytes (%) (Auto) 13.6 % (1.0-10.0) H Eosinophils (%) (Auto) 1.0 % (0.0-3.0) Basophils (%) (Auto) 0.6 % (0.0-2.0) Chemistry Test 05/20/18 08:53 Sodium Level 140 MMOL/L (136-145) Potassium Level 3.9 MMOL/L (3.5-5.1) Chloride Level 105 MMOL/L (98-107) Carbon Dioxide Level 26 MMOL/L (21-32) Anion Gap 9 mmol/L (5-15) Blood Urea Nitrogen 8 mg/dL (7-18) Creatinine 0.7 MG/DL (0.55-1.30) Estimat Glomerular Filtration Rate > 60 mL/min (>60) Glucose Level 100 MG/DL (74-106) Calcium Level 8.8 MG/DL (8.5-10.1) Magnesium Level 1.8 MG/DL (1.8-2.4) Studies Pre-op Studies: EKG - sr Risk Assessment & Plan Plan: general Status Change Before Surgery: Tiesha Aguilar CRNA May 20, 2018 14:00
--- NOTE | 2018-05-20 15:43 | Infectious Diseases Prog Note ---
Assessment/Plan Assessment/Plan ASSESSMENT AND PLAN: 1. left axilla infected wound/infected hidradenitis suppurativa, pseudomonas uti , ? viral syndrome, sinusitis, pharyngitis, fevers, leukocytosis, ? sepsis, s/p left axilla hidradenitis excision and flap elevation - daptomycin, zosyn - plan on wound closure - fever curve somewhat improved - monitor labs 2. hx anxiety 3. Crohn disease. She is on Remicade - GI f/u 4. History of hidradenitis suppurativa, multiple surgeries. 5. Allergies to azithromycin, bisacodyl, docusate, iodine contrast, latex, tape, and vancomycin. 6. Social history is negative. 7. Family history is noncontributory. 8. MAR was noted. 9. Case was discussed with RN. 10. Continue treatment per primary consultants. 11. Case was discussed with the patient 12. Case was discussed with Dr. Celeste Schuster, primary care. Subjective Constitutional: Reports: fever, fatigue, other - no focal weakness HEENT: Reports: other - + sinus discomfort, + sore throat ; Denies: congestion Respiratory: Denies: shortness of breath Cardiovascular: Denies: chest pain Gastrointestinal/Abdominal: Denies: nausea, vomiting, diarrhea Genitourinary: Reports: other - no cva pain; Denies: dysuria, hematuria, frequency Neurologic: Denies: headache Psychiatric: Denies: depression Skin: Denies: rash Hematologic: Denies: bleeding Musculoskeletal: Denies: pain - c Allergies: Coded Allergies: AZATHIOPRINE (Verified Allergy, Unknown, 05/15/18) DOCUSATE (Verified Allergy, Unknown, 05/15/18) ok for oral LATEX (Verified Allergy, Unknown, 05/15/18) VANCOMYCIN (Verified Allergy, Unknown, 05/15/18) BISACODYL (Verified Adverse Reaction, Severe, Rash, 05/15/18) Uncoded Allergies: IODINE CONTRAST (Allergy, Unknown, 05/15/18) TAPE (Allergy, Unknown, 05/15/18) Objective Vital Signs Last 24 Hour Vital Signs Date Time Temp Pulse Resp B/P (MAP) Pulse Ox O2 Delivery O2 Flow Rate FiO2 05/20/18 14:59 100.4 05/20/18 12:13 100.4 05/20/18 12:00 98.2 62 18 110/64 (79) 98 05/20/18 10:56 100.4 05/20/18 09:00 Room Air 05/20/18 08:00 97.7 74 20 96/60 (72) 99 05/20/18 04:59 99.5 87 19 104/62 (76) 94 05/20/18 01:44 99.1 05/20/18 01:44 99.1 05/20/18 01:16 100.4 107 05/20/18 00:43 113 19 102/62 (75) 95 05/19/18 20:26 Room Air 05/19/18 20:00 98.6 107 19 110/71 (84) 05/19/18 20:00 98.6 107 19 110/71 (84) 93 05/19/18 16:00 98.3 80 19 118/63 (81) 99 Height (Feet): 5 Height (Inches): 5.00 Weight (Pounds): 170 General Appearance: no acute distress HEENT: normocephalic, atraumatic, anicteric, mucous membranes moist, EOMI, supple, no JVD, other - no sig sinus pain or throat redness seen Respiratory/Chest: lungs clear, normal breath sounds, no respiratory distress, no accessory muscle use Cardiovascular: normal rate, regular rhythm, no gallop/murmur, no JVD Abdomen: normal bowel sounds, soft, non tender, no organomegaly, non distended Genitourinary: other - no santana Extremities: no cyanosis Skin: no rash Neurologic/Psychiatric: rn telephone triage II-XII grossly normal, alert, responsive Lymphatic: no neck adenopathy Musculoskeletal: no effusion Objective Chest x-ray - left atx, report noted Microbiology Date/Time Source Procedure Growth Status 05/15/18 18:30 Blood Blood Culture - Preliminary NO GROWTH AFTER 72 HOURS Resulted 05/18/18 13:40 Urine,Clean Catch Urine Culture - Final Pseudomonas Aeruginosa Complete Microbiology Date/Time Source Procedure Growth Status 05/18/18 13:40 Urine,Clean Catch Urine Culture - Final Pseudomonas Aeruginosa Complete Laboratory Tests Test 05/20/18 08:53 White Blood Count 9.7 K/UL (4.8-10.8) Red Blood Count 4.09 M/UL (4.20-5.40) L Hemoglobin 11.5 G/DL (12.0-16.0) L Hematocrit 35.8 % (37.0-47.0) L Mean Corpuscular Volume 88 FL (80-99) Mean Corpuscular Hemoglobin 28.1 PG (27.0-31.0) Mean Corpuscular Hemoglobin Concent 32.0 G/DL (32.0-36.0) Red Cell Distribution Width 12.4 % (11.6-14.8) Platelet Count 203 K/UL (150-450) Mean Platelet Volume 6.0 FL (6.5-10.1) L Neutrophils (%) (Auto) 58.4 % (45.0-75.0) Lymphocytes (%) (Auto) 26.4 % (20.0-45.0) Monocytes (%) (Auto) 13.6 % (1.0-10.0) H Eosinophils (%) (Auto) 1.0 % (0.0-3.0) Basophils (%) (Auto) 0.6 % (0.0-2.0) Sodium Level 140 MMOL/L (136-145) Potassium Level 3.9 MMOL/L (3.5-5.1) Chloride Level 105 MMOL/L (98-107) Carbon Dioxide Level 26 MMOL/L (21-32) Anion Gap 9 mmol/L (5-15) Blood Urea Nitrogen 8 mg/dL (7-18) Creatinine 0.7 MG/DL (0.55-1.30) Estimat Glomerular Filtration Rate > 60 mL/min (>60) Glucose Level 100 MG/DL (74-106) Calcium Level 8.8 MG/DL (8.5-10.1) Magnesium Level 1.8 MG/DL (1.8-2.4) Current Medications Medications (Trade) Dose Ordered Sig/Alix Route PRN Reason Start Time Stop Time Status Last Admin Dose Admin Acetaminophen (Tylenol) 650 mg Q4H PRN ORAL FEVER 05/16/18 10:00 06/15/18 09:59 05/20/18 01:14 Aripiprazole (Abilify) 2 mg DAILY ORAL 05/16/18 09:00 06/15/18 08:59 05/20/18 08:47 Daptomycin 300 mg/ Sodium Chloride 55 ml @ 100 mls/hr Q24H IV 05/18/18 16:00 05/25/18 15:59 05/19/18 16:39 Dextrose (Dextrose 50%) 25 ml Q30M PRN IV Hypoglycemia 05/15/18 18:15 06/14/18 18:14 Dextrose (Dextrose 50%) 50 ml Q30M PRN IV Hypoglycemia 05/15/18 18:15 06/14/18 18:14 Diphenhydramine HCl (Benadryl) 25 mg Q6H PRN ORAL Itching/Pruritis 05/15/18 18:15 06/14/18 18:14 05/17/18 17:39 Gabapentin (Neurontin) 100 mg THREE TIMES A DAY ORAL 05/18/18 09:00 06/16/18 09:29 05/20/18 12:23 Heparin Sodium (Porcine) (Heparin 5000 units/ml) 5,000 units EVERY 12 HOURS SUBQ 05/16/18 21:00 06/15/18 20:59 05/20/18 08:48 Hydromorphone HCl (Dilaudid) 1 mg Q2H PRN SUBQ severe break through pain 05/18/18 09:15 05/25/18 09:14 05/20/18 14:29 Hydromorphone HCl (Dilaudid) 2 mg DAILYPRN PRN SUBQ dressing changes 05/18/18 11:45 05/25/18 11:44 05/20/18 11:43 Lactobacillus Acidophilus (Culturelle) 1 tab TWICE A DAY ORAL 05/17/18 18:00 06/16/18 17:59 05/20/18 08:47 Magnesium Hydroxide (Mom) 30 ml HSPRN PRN ORAL Constipation 05/15/18 18:15 06/14/18 18:14 Naloxone HCl (Narcan) 0.2 mg Q30M PRN IVP respiratory distress 05/18/18 09:15 06/17/18 09:14 Nystatin (Nystatin Cr) 1 applic DAILY TOPIC 05/19/18 09:00 06/18/18 08:59 05/20/18 08:48 Ondansetron HCl (Zofran) 4 mg Q6H PRN IVP Nausea & Vomiting 05/16/18 10:00 06/15/18 09:59 05/20/18 12:23 Oxycodone/ Acetaminophen (Percocet 10/325) 1 tab Q6H ORAL 05/18/18 10:00 05/25/18 09:14 05/20/18 10:26 Piperacillin Sod/ Tazobactam Sod 3.375 gm/Sodium Chloride 110 ml @ 27.5 mls/hr EVERY 8 HOURS IVPB 05/18/18 14:00 05/23/18 13:59 05/20/18 14:29 Polyethylene Glycol (Miralax) 17 gm HSPRN PRN ORAL Constipation 05/15/18 18:15 06/14/18 18:14 05/19/18 21:30 Sodium Chloride 1,000 ml @ 75 mls/hr [id number] IV 05/15/18 19:15 06/14/18 19:14 05/20/18 05:24 Temazepam (Restoril) 7.5 mg DAILYPRN PRN ORAL Insomnia 05/16/18 10:00 05/23/18 09:59 Zolpidem Tartrate (Ambien) 5 mg DAILYPRN PRN ORAL Insomnia 05/16/18 12:45 05/23/18 09:59 Niya Holley MD May 20, 2018 15:43
[2018-05-20 16:00] VITALS: BP 110/63
[2018-05-20] MEDS: DAPTOmycin 300 MG in NS 55 ML IV SCH (17:02)
--- NOTE | 2018-05-20 19:30 | NUR ---
NURSE NOTES: Report received from outgoing nurse, rounds made. Patient awake and alert x4, sitting in an upright position in bed. No distress noted. No SOB on RA. NS lock IV right hand 22g, asymptomatic. Bed in lowest position, side rails x2. Call light within reach. Asked pt to call for assistance to ambulate to the restroom. She acknowledged and verbalized understanding. Will continue to monitor. Addendum: 05/20/18 at 2221 by Monica Christian RN IV running NS at 75 ml/h
--- NOTE | 2018-05-20 19:41 | NUR ---
CASE MANAGEMENT:REVIEW 05/20/2018 SI:HIDRADENITIS. T 100.4 HR 97 RR 19 B/P 110/63 SATS 97% ON RA WNL IS:IVF @ 75 mL/HR ZOSYN IV Q8H ABILIFY PO QD DAPTOMYCIN IV Q24H PERCOCET PO Q6H GABAPENTIN PO TID MED/SURG STATUS PLAN OF CARE: NPO Plan for OR on Monday for closure of wound
--- NOTE | 2018-05-20 19:56 | NUR ---
HAND-OFF: Report given to Mattie FITZGERALD, pt in stable condition. RN endorsed to the incoming nurse that pt is NPO after midnight for tomorrow morning procedure pt is also aware and verbalized understanding.
--- NOTE | 2018-05-20 19:56 | NUR ---
Nurse Notes: IV running NS at 75 ml/h
[2018-05-20 20:00] VITALS: BP 119/65
--- NOTE | 2018-05-20 20:15 | General Progress Note ---
Assessment/Plan Assessment/Plan 22 year old female with PMH of Crohns disease on remicade (Next dose 05/21/18), anxiety and hidradenitis suppurativa presents with pain in L axilla region with open wound with drainage. #Hidradenitis suppurative on L axilla s/p surgery at OSH with open wound #Possible wound infection/abscess s/p Excision of the left axillary hidradenitis tissue and Elevation of a fasciocutaneous left lateral chest wall flap POD #3 #Fevers possible 2/2 crohns flare vs infectious causes -plastic surgery (Dr. Brambila) consult appreciated -IV Ancef 1gr Q8hrs changed to Daptomycin (vanc allergy) and Zosyn (05/18- ) -f/u Blood cultures on admission and repeated today -pain not controlled on WAD LUBRICATOR dilauded- WAD LUBRICATOR discontinued -Pain management consult appreciated -Gabapentin decreased to 100mg TID due to intolerance - Encourage mobilization/ambulation - Encourage incentive spirometry to optimize pulmonary hygiene - DVT/GI prophylaxis as appropriate - SCD -Pending LE US to r/o dvt --Plan for OR monday for flap transfer and closure of L axillary wound -ID consult appreciated #Crohns disease -on remicade - next dose 05/21/18 -GI consult appreciated, - cleared for surgery -CTM #Anxiety - c/w home meds #Hypokalemia, resolved - trend chem periodically & supplement as needed Code status [employer] of note, may not reflect time of encounter I spent 45 min on this patients care, and 35 min was dedicated to counseling and /or care coordination Subjective Date patient seen: May 20, 2018 Allergies: Coded Allergies: AZATHIOPRINE (Verified Allergy, Unknown, 05/15/18) DOCUSATE (Verified Allergy, Unknown, 05/15/18) ok for oral LATEX (Verified Allergy, Unknown, 05/15/18) VANCOMYCIN (Verified Allergy, Unknown, 05/15/18) BISACODYL (Verified Adverse Reaction, Severe, Rash, 05/15/18) Uncoded Allergies: IODINE CONTRAST (Allergy, Unknown, 05/15/18) TAPE (Allergy, Unknown, 05/15/18) Subjective no acute events still w/ low grade fevers tolerating abx hypokalemia resolved w/ supplementation fells "better today" npo mn for OR tomorrow Objective Last 24 Hour Vital Signs Date Time Temp Pulse Resp B/P (MAP) Pulse Ox O2 Delivery O2 Flow Rate FiO2 05/20/18 17:29 98.2 05/20/18 16:00 98.2 97 19 110/63 (79) 97 05/20/18 14:59 100.4 05/20/18 12:13 100.4 05/20/18 12:00 98.2 62 18 110/64 (79) 98 05/20/18 09:00 Room Air 05/20/18 08:00 97.7 74 20 96/60 (72) 99 05/20/18 04:59 99.5 87 19 104/62 (76) 94 05/20/18 01:44 99.1 05/20/18 01:44 99.1 05/20/18 01:16 100.4 107 05/20/18 00:43 113 19 102/62 (75) 95 05/19/18 20:26 Room Air Intake and Output 05/19/18 05/20/18 18:59 06:59 Intake Total 810.0 ml 902.5 ml Balance 810.0 ml 902.5 ml Intake Oral 120 ml 240 ml IV Total 690.0 ml 662.5 ml # Voids 2 3 # Bowel Movements 1 2 Laboratory Tests 05/20/18 08:53: White Blood Count 9.7, Red Blood Count 4.09L, Hemoglobin 11.5L, Hematocrit 35.8L , Mean Corpuscular Volume 88, Mean Corpuscular Hemoglobin 28.1, Mean Corpuscular Hemoglobin Concent 32.0, Red Cell Distribution Width 12.4, Platelet Count 203, Mean Platelet Volume 6.0L, Neutrophils (%) (Auto) 58.4, Lymphocytes ( %) (Auto) 26.4, Monocytes (%) (Auto) 13.6H, Eosinophils (%) (Auto) 1.0, Basophils (%) (Auto) 0.6, Sodium Level 140, Potassium Level 3.9, Chloride Level 105, Carbon Dioxide Level 26, Anion Gap 9, Blood Urea Nitrogen 8, Creatinine 0.7 , Estimat Glomerular Filtration Rate > 60, Glucose Level 100, Calcium Level 8.8 , Magnesium Level 1.8 Height (Feet): 5 Height (Inches): 5.00 Weight (Pounds): 170 Objective General Appearance: WD/WN, moddistress, alert Lines, tubes and drains: peripheral HEENT: normocephalic, atraumatic, anicteric Neck: non-tender, normal alignment, supple Respiratory/Chest: chest wall non-tender, lungs clear, normal breath sounds, no respiratory distress Cardiovascular/Chest: normal peripheral pulses, normal rate, regular rhythm Abdomen: normal bowel sounds, non tender, soft, no organomegaly Extremities: normal range of motion, non-tender, normal inspection, no calf tenderness Skin Exam: normal pigmentation, warm/dry, other - Left axilla with dressing CDI Neurologic: research scientist II-XII grossly normal Musculoskeletal: normal muscle bulk Tom Duran MD May 20, 2018 20:15
[2018-05-21] VITALS (15 sets, daily range): BP systolic 99–132; BP diastolic 57–72
[2018-05-21] MEDS: HYDROmorphone 1mg/ml Carpuject SUBQ PRN ×2 (00:39→08:25)
[2018-05-21] MEDS: Piperacillin/Tazobactam 3.375 GM in NS 110 ML IVPB SCH ×3 (05:07→22:26)
[2018-05-21 06:38] LABS: BASOPHILS % (AUTO) 0.9 % (0.0-2.0); HEMATOCRIT 34.2 % (37.0-47.0); HEMOGLOBIN 11.3 G/DL (12.0-16.0); LYMPHOCYTES % (AUTO) 27.6 % (20.0-45.0); MEAN CORPUSCULAR VOLUME 87 FL (80-99); MONOCYTES % (AUTO) 10.6 % (1.0-10.0); PLATELET COUNT 221 K/UL (150-450); RED BLOOD COUNT 3.93 M/UL (4.20-5.40); RED CELL DISTRIBUTION WIDTH 12.4 % (11.6-14.8); WHITE BLOOD COUNT 9.6 K/UL (4.8-10.8)
[2018-05-21 06:46] LABS: ANION GAP 10 mmol/L (5-15); BLOOD UREA NITROGEN 7 mg/dL (7-18); CALCIUM 8.7 MG/DL (8.5-10.1); CARBON DIOXIDE 26 MMOL/L (21-32); CHLORIDE 103 MMOL/L (98-107); CREATININE 0.7 MG/DL (0.55-1.30); POTASSIUM 3.9 MMOL/L (3.5-5.1); SODIUM 139 MMOL/L (136-145)
[2018-05-21 06:52] LABS: CREATINE KINASE 12 U/L (26-308)
--- NOTE | 2018-05-21 07:38 | NUR ---
HAND-OFF: Report given to Angela FITZGERALD.
--- NOTE | 2018-05-21 07:42 | NUR ---
NURSE NOTES: Pt awake remains NPO for procedure. able to verbalize known needs. Call light in reach. bed is in safe position. Current plan of care will be followed
--- NOTE | 2018-05-21 08:22 | NUR ---
CASE MANAGEMENT:REVIEW 05/21/18 SI: POD #5 HIDRADENITIS SUPPURATIVE LT AXILLA 98.8 92 18 105/65 95% ON RA H/H-11.3/34.2 IS: IV ZOSYN Q8HRS IV DAPTOMYCIN Q24 IVF@75/HR HEPARIN SQ Q12 : MED/SURG STATUS 3 EAST PLAN: SECOND SURGERY WAS SCHEDULED FOR LAST MONDAY BUT WAS CANCELLED DUE TO FEVER SECOND SURGERY SCHEDULED FOR TODAY
--- NOTE | 2018-05-21 08:54 | General Progress Note ---
Assessment/Plan Assessment/Plan (1) Left Axilla pain (2) Left axillary open wound with infected hidradenitis (3) S/p Excision and elevation of left chest wall flap Pt will continue Neurontin, Percocet and Dilaudid. D/w Dr. Long and he concurred. Subjective Date patient seen: May 21, 2018 Time patient seen: 07:30 - am Constitutional: Reports: no symptoms HEENT: Reports: no symptoms Respiratory: Reports: no symptoms Gastrointestinal/Abdominal: Reports: no symptoms Genitourinary: Reports: no symptoms Neurologic/Psychiatric: Reports: no symptoms Endocrine: Reports: no symptoms Hematologic/Lymphatic: Reports: no symptoms Allergies: Coded Allergies: AZATHIOPRINE (Verified Allergy, Unknown, 05/15/18) DOCUSATE (Verified Allergy, Unknown, 05/15/18) ok for oral LATEX (Verified Allergy, Unknown, 05/15/18) VANCOMYCIN (Verified Allergy, Unknown, 05/15/18) BISACODYL (Verified Adverse Reaction, Severe, Rash, 05/15/18) Uncoded Allergies: IODINE CONTRAST (Allergy, Unknown, 05/15/18) TAPE (Allergy, Unknown, 05/15/18) Subjective Patient is in bed with father at bedside. Pain has been stable. Looking forward to surgery today. No new complaints at this time. Objective Last 24 Hour Vital Signs Date Time Temp Pulse Resp B/P (MAP) Pulse Ox O2 Delivery O2 Flow Rate FiO2 05/21/18 04:00 98.8 92 18 105/65 (78) 95 05/21/18 00:00 98.0 92 18 132/72 (92) 95 05/20/18 21:00 Room Air 05/20/18 20:00 98.2 108 18 119/65 (83) 94 05/20/18 17:29 98.2 05/20/18 16:00 98.2 97 19 110/63 (79) 97 05/20/18 14:59 100.4 05/20/18 12:13 100.4 05/20/18 12:00 98.2 62 18 110/64 (79) 98 05/20/18 09:00 Room Air Intake and Output 05/20/18 05/21/18 19:00 07:00 Intake Total 1620 ml 362.5 ml Balance 1620 ml 362.5 ml Intake Oral 720 ml IV Total 900 ml 362.5 ml # Voids 2 2 # Bowel Movements 1 1 Laboratory Tests 05/21/18 05:35: White Blood Count 9.6, Red Blood Count 3.93L, Hemoglobin 11.3L, Hematocrit 34.2L , Mean Corpuscular Volume 87, Mean Corpuscular Hemoglobin 28.8, Mean Corpuscular Hemoglobin Concent 33.1, Red Cell Distribution Width 12.4, Platelet Count 221, Mean Platelet Volume 6.1L, Neutrophils (%) (Auto) 59.0, Lymphocytes ( %) (Auto) 27.6, Monocytes (%) (Auto) 10.6H, Eosinophils (%) (Auto) 2.0, Basophils (%) (Auto) 0.9, Sodium Level 139, Potassium Level 3.9, Chloride Level 103, Carbon Dioxide Level 26, Anion Gap 10, Blood Urea Nitrogen 7, Creatinine 0.7, Estimat Glomerular Filtration Rate > 60, Glucose Level 95, Calcium Level 8.7, Total Creatine Kinase 12L Height (Feet): 5 Height (Inches): 5.00 Weight (Pounds): 170 General Appearance: no apparent distress, alert EENT: PERRL/EOMI, normal ENT inspection Neck: non-tender, normal alignment Cardiovascular: normal rate, regular rhythm Respiratory/Chest: lungs clear, normal breath sounds Abdomen: non tender, soft Extremities: other - bandages applied to left axilla Edema: no edema noted Arm (L), no edema noted Arm (R), no edema noted Leg (L), no edema noted Leg (R), no edema noted Pedal (L), no edema noted Pedal (R), no edema noted Generalized Neurologic: alert, oriented x 3 Skin: warm/dry Hao Aldana May 21, 2018 08:54
[2018-05-21] MEDS: Heparin 5000 units/ml inj SUBQ SCH ×3 (09:00→22:28)
[2018-05-21] MEDS: ARIPiprazole 2mg tab ORAL SCH (09:00)
[2018-05-21] MEDS: Lactobacillus-GG tablet ORAL SCH ×2 (09:00→17:53)
[2018-05-21] MEDS ORDERED: Lidocaine 1% 10mg/ml/Epi 0.005mg/ml 30ml vial INJ ONE (09:55)
[2018-05-21] MEDS ORDERED: Bacitracin 50000 Units Vial ONE (09:56)
[2018-05-21] MEDS ORDERED: NeoSporin Gu Irrig 1ml Amp IRRIG ONE (09:56)
[2018-05-21] MEDS ORDERED: Succinylcholine 20mg/ml 10ml vial ONE (10:24)
[2018-05-21] MEDS ORDERED: Zemuron 50mg/5ml Inj IV ONE (10:24)
[2018-05-21] MEDS ORDERED: Midazolam 2mg/2ml Inj ONE (10:30)
[2018-05-21] MEDS ORDERED: fentaNYL 100 mcg/2 mL IV ONE (10:30)
[2018-05-21] MEDS ORDERED: Propofol 200mg/20ml IV ONE ×3 (10:33→12:58)
[2018-05-21] MEDS ORDERED: Lidocaine 1% MPF 10mg/ml 5ml ONE (10:33)
--- NOTE | 2018-05-21 10:37 | GI Progress Note ---
Assessment/Plan Problems: (1) Hidradenitis suppurativa of left axilla ICD Codes: L73.2 - Hidradenitis suppurativa SNOMED: 535097752 (2) Crohns disease ICD Codes: K50.90 - Crohn's disease, unspecified, without complications SNOMED: 95172577 Status: unchanged Status Narrative Discussed with Dr. Terrazas Assessment/Plan Patient scheduled for surgery today for closure of wound, follow up recommendations Afebrile today Remicade pushed for one week per patient primary GI abx per ID pending surg pain mgmt Postoperative care The patient was seen and examined at bedside and all new and available data was reviewed in the patients chart. I agree with the above findings, impression and plan. (Patient seen earlier today. Signature stamp does not reflect patient encounter time.). - Moshe Terrazas MD Subjective Gastrointestinal/Abdominal: Reports: abdominal pain Objective Last 24 Hour Vital Signs Date Time Temp Pulse Resp B/P (MAP) Pulse Ox O2 Delivery O2 Flow Rate FiO2 05/21/18 04:00 98.8 92 18 105/65 (78) 95 05/21/18 00:00 98.0 92 18 132/72 (92) 95 05/20/18 21:00 Room Air 05/20/18 20:00 98.2 108 18 119/65 (83) 94 05/20/18 17:29 98.2 05/20/18 16:00 98.2 97 19 110/63 (79) 97 05/20/18 14:59 100.4 05/20/18 12:13 100.4 05/20/18 12:00 98.2 62 18 110/64 (79) 98 Intake and Output 05/20/18 05/21/18 19:00 07:00 Intake Total 1620 ml 362.5 ml Balance 1620 ml 362.5 ml Intake Oral 720 ml IV Total 900 ml 362.5 ml # Voids 2 2 # Bowel Movements 1 1 Laboratory Tests Test 05/21/18 05:35 White Blood Count 9.6 K/UL (4.8-10.8) Red Blood Count 3.93 M/UL (4.20-5.40) L Hemoglobin 11.3 G/DL (12.0-16.0) L Hematocrit 34.2 % (37.0-47.0) L Mean Corpuscular Volume 87 FL (80-99) Mean Corpuscular Hemoglobin 28.8 PG (27.0-31.0) Mean Corpuscular Hemoglobin Concent 33.1 G/DL (32.0-36.0) Red Cell Distribution Width 12.4 % (11.6-14.8) Platelet Count 221 K/UL (150-450) Mean Platelet Volume 6.1 FL (6.5-10.1) L Neutrophils (%) (Auto) 59.0 % (45.0-75.0) Lymphocytes (%) (Auto) 27.6 % (20.0-45.0) Monocytes (%) (Auto) 10.6 % (1.0-10.0) H Eosinophils (%) (Auto) 2.0 % (0.0-3.0) Basophils (%) (Auto) 0.9 % (0.0-2.0) Sodium Level 139 MMOL/L (136-145) Potassium Level 3.9 MMOL/L (3.5-5.1) Chloride Level 103 MMOL/L (98-107) Carbon Dioxide Level 26 MMOL/L (21-32) Anion Gap 10 mmol/L (5-15) Blood Urea Nitrogen 7 mg/dL (7-18) Creatinine 0.7 MG/DL (0.55-1.30) Estimat Glomerular Filtration Rate > 60 mL/min (>60) Glucose Level 95 MG/DL (74-106) Calcium Level 8.7 MG/DL (8.5-10.1) Total Creatine Kinase 12 U/L (26-308) L Height (Feet): 5 Height (Inches): 5.00 Weight (Pounds): 170 General Appearance: WD/WN, no apparent distress, alert Cardiovascular: normal rate Respiratory/Chest: normal breath sounds, no respiratory distress Abdominal Exam: normal bowel sounds, non tender, soft Extremities: normal range of motion, non-tender Joy Malone NP May 21, 2018 10:37
--- NOTE | 2018-05-21 10:50 | Pre-Procedure Note/Attestation ---
Pre-Procedure Note/Attestation Complete Prior to Procedure Planned Procedure: left Indications for Procedure Pre-Operative Diagnosis: Left axillary wound closure with lateral chest wall flap Attestation I attest that I discussed the nature of the procedure; its benefits; risks and complications; and alternatives (and the risks and benefits of such alternatives ), prior to the procedure, with the patient (or the patient's legal medical center representative). I attest that, if there was a reasonable possibility of needing a blood transfusion, the patient (or the patient's legal medical center representative) was given the [facility] standardized written summary, pursuant to the Ishan Eli Blood Safety Act ([place] Health and Safety Code # 1645, as amended). I attest that I re-evaluated the patient just prior to the surgery and that there has been no change in the patient's H&P, except as documented below: Sagar Brambila MD May 21, 2018 10:50
[2018-05-21] MEDS ORDERED: Sterile Water Irrig 1000ml IRRIG ONE (11:00)
[2018-05-21] MEDS ORDERED: LR 1000ml ONE (11:00)
[2018-05-21] MEDS ORDERED: NS Irrig 2000ml IRRIG ONE (11:00)
[2018-05-21] MEDS ORDERED: Zolpidem 5mg tab ORAL PRN (11:00)
[2018-05-21] MEDS ORDERED: PCA Education Pamphlet MISC ONE (11:00)
[2018-05-21] MEDS ORDERED: PCA HYDROmorphone 1mg/ml 30 ML IV PRN (11:00)
[2018-05-21] MEDS ORDERED: Rate Change PCA 1 Each MISC PRN (11:00)
[2018-05-21] MEDS ORDERED: NS Irrig 1000ml ONE (11:00)
[2018-05-21] MEDS ORDERED: Morphine Sulfate 10mg/ml Inj ONE (11:41)
[2018-05-21] MEDS ORDERED: Sodium Chloride 10ml vial INJ ONE (11:42)
[2018-05-21] MEDS ORDERED: Glycopyrrolate 0.2mg/ml 1ml Vial ONE (11:42)
[2018-05-21] MEDS ORDERED: Neostigmine 1mg/ml 10ml Inj ONE (11:42)
[2018-05-21] MEDS ORDERED: Ketorolac 30mg Inj ONE (11:42)
[2018-05-21] MEDS ORDERED: Surgicel 4in x 8in TOPIC ONE (12:00)
[2018-05-21] MEDS ORDERED: Nystatin Powder 100,000 units/gm 15gm TOPIC ONE (12:45)
--- NOTE | 2018-05-21 13:01 | General Progress Note ---
Assessment/Plan Assessment/Plan 22 year old female with PMH of Crohns disease on Remicade (Next dose 05/21/18), anxiety and hidradenitis suppurativa who presented with pain in L axillary region with open wound and drainage. #Hidradenitis suppurativa on L axilla s/p surgery at OSH with open wound #Possible wound infection/abscess s/p Excision of the left axillary hidradenitis tissue and Elevation of a fasciocutaneous left lateral chest wall flap #Sepsis due to suspected soft tissue infection - plastic surgery following, s/p wound closure today, continue routine post op care including DVT prophylaxis, IS and other supportive measures - Continue broad spectrum antibiotics per ID - f/u cultures - continue current pain regimen as per pain management team - Encourage mobilization/ambulation - Encourage incentive spirometry to optimize pulmonary hygiene - DVT/GI prophylaxis as appropriate - SCD #Crohns disease -on Remicade - next dose was to be 05/21/18 but held for now per GI recs -GI following -CTM #Anxiety - c/w home meds #Hypokalemia, resolved - trend chem periodically & supplement as needed Code status Lead C Developer of note, may not reflect time of encounter I spent 45 min on this patients care, and 26 min was dedicated to counseling and /or care coordination Subjective Date patient seen: May 21, 2018 Time patient seen: 14:00 Constitutional: Denies: chills HEENT: Denies: eye pain Cardiovascular: Denies: chest pain, edema Respiratory: Denies: cough, orthopnea, shortness of breath Gastrointestinal/Abdominal: Denies: abdomen distended, abdominal pain Genitourinary: Denies: burning, discharge, frequency Neurologic/Psychiatric: Denies: anxiety, depressed Allergies: Coded Allergies: AZATHIOPRINE (Verified Allergy, Unknown, 05/15/18) DOCUSATE (Verified Allergy, Unknown, 05/15/18) ok for oral LATEX (Verified Allergy, Unknown, 05/15/18) VANCOMYCIN (Verified Allergy, Unknown, 05/15/18) BISACODYL (Verified Adverse Reaction, Severe, Rash, 05/15/18) Uncoded Allergies: IODINE CONTRAST (Allergy, Unknown, 05/15/18) TAPE (Allergy, Unknown, 05/15/18) Subjective Medicine follow up for hidradenitis suppurativa with possible sepsis related to soft tissue abscess. Patient underwent wound closure today, seen in PACU, sedated and in pain. Objective Last 24 Hour Vital Signs Date Time Temp Pulse Resp B/P (MAP) Pulse Ox O2 Delivery O2 Flow Rate FiO2 05/21/18 09:00 Room Air 05/21/18 08:00 97.6 18 99/57 (71) 05/21/18 04:00 98.8 92 18 105/65 (78) 95 05/21/18 00:00 98.0 92 18 132/72 (92) 95 05/20/18 21:00 Room Air 05/20/18 20:00 98.2 108 18 119/65 (83) 94 05/20/18 17:29 98.2 05/20/18 16:00 98.2 97 19 110/63 (79) 97 05/20/18 14:59 100.4 Intake and Output 05/20/18 05/21/18 19:00 07:00 Intake Total 1620 ml 362.5 ml Balance 1620 ml 362.5 ml Intake Oral 720 ml IV Total 900 ml 362.5 ml # Voids 2 2 # Bowel Movements 1 1 Laboratory Tests 05/21/18 05:35: White Blood Count 9.6, Red Blood Count 3.93L, Hemoglobin 11.3L, Hematocrit 34.2L , Mean Corpuscular Volume 87, Mean Corpuscular Hemoglobin 28.8, Mean Corpuscular Hemoglobin Concent 33.1, Red Cell Distribution Width 12.4, Platelet Count 221, Mean Platelet Volume 6.1L, Neutrophils (%) (Auto) 59.0, Lymphocytes ( %) (Auto) 27.6, Monocytes (%) (Auto) 10.6H, Eosinophils (%) (Auto) 2.0, Basophils (%) (Auto) 0.9, Sodium Level 139, Potassium Level 3.9, Chloride Level 103, Carbon Dioxide Level 26, Anion Gap 10, Blood Urea Nitrogen 7, Creatinine 0.7, Estimat Glomerular Filtration Rate > 60, Glucose Level 95, Calcium Level 8.7, Total Creatine Kinase 12L Height (Feet): 5 Height (Inches): 5.00 Weight (Pounds): 170 General Appearance: no apparent distress, alert Neck: non-tender, normal alignment, supple, normal inspection Cardiovascular: normal rate, regular rhythm, regularly irregular Respiratory/Chest: chest wall non-tender, lungs clear, normal breath sounds Abdomen: non tender, soft Markie Ortega MD May 21, 2018 13:01
--- NOTE | 2018-05-21 13:08 | Operative Note - PDOC ---
Operative Note Operative Note Pre-op Diagnosis: Left axillary open wound Procedure: Left axillary wound closure Post-op Diagnosis: same as pre-op Surgeon: Patty Mems Integration Engineer: Ava Anesthesia: general Specimen: yes Complications: none Condition: stable Estimated Blood Loss: none Drains: VANESSA Implant(s) used?: No Sagar Brambila MD May 21, 2018 13:08
[2018-05-21] MEDS ORDERED: Meperidine 50mg/ml Inj(FOR RIGORS ONLY) IVP PRN (13:30)
[2018-05-21] MEDS ORDERED: DiphenhydrAMINE 50mg/ml Inj IVP PRN (13:30)
[2018-05-21] MEDS ORDERED: Metoclopramide 10mg/2ml Inj IVP ONE (13:30)
[2018-05-21] MEDS ORDERED: Midazolam 2mg/2ml Inj IVP PRN (13:30)
[2018-05-21] MEDS ORDERED: Hydromorphone 0.5mg/0.5ml inj ONE ×2 (13:36→13:49)
[2018-05-21] MEDS: Hydromorphone 0.5mg/0.5ml inj IVP PRN ×2 (13:36→13:49)
[2018-05-21] MEDS ORDERED: DiphenhydrAMINE 50mg/ml Inj ONE (13:37)
[2018-05-21] MEDS ORDERED: Hydromorphone 0.5mg/0.5ml inj IVP PRN ×2 (14:00→14:47)
--- NOTE | 2018-05-21 14:19 | NUR ---
NURSE NOTES: Upon this writing pt has not returned to the floor from surgery
--- NOTE | 2018-05-21 15:30 | NUR ---
received patient alert awake with complaints of pain, STAPLE PROCESSING MACHINE OPERATOR started and patient using. surgical site dressing dry and intact with one VANESSA drain draining dark brown drainage, new IV started on the foot at OR intact and patent. patient able to void on bedpan. will continue to monitor.
--- NOTE | 2018-05-21 16:46 | Diagnostic Imaging Report ---
APPROVED REPORT CPT Code: 19142 Present Symptoms Comments: Post op BILATERAL: Imaging reveals a patent deep venous system bilaterally. There is no evidence of thrombus within the common femoral, superficial femoral, popliteal or tibial segments. The greater saphenous veins are within normal limits. Doppler indicates normal spontaneous flow within these segments.
[2018-05-21] MEDS: DAPTOmycin 300 MG in NS 55 ML IV SCH (17:53)
[2018-05-21] MEDS: PCA shift volume MISC SCH (19:00)
--- NOTE | 2018-05-21 20:00 | NUR ---
NURSE NOTES: Pt currently awake comfortable verbalize effectiveness of sub q injection, bandage clean and intact VANESSA drain 30 cc brown fluid thin in consistency, Pt ate minimal food is at bedside. call light is in reach . Bed is n safe position. LITERARY AGENT pump in use.
--- NOTE | 2018-05-21 20:00 | Operative Note - Dictated ---
DATE OF OPERATION: 05/21/2018 PREOPERATIVE DIAGNOSIS: Open left axillary wound measuring 11 x 9 cm. POSTOPERATIVE DIAGNOSIS: Open left axillary wound measuring 11 x 9 cm. PROCEDURES: 1. Preparation of left axillary wound measuring 11 x 9 cm for flap transfer closure, CPT code 66165. 2. Adjacent tissue transfer closure of left axillary wound with transposition of lateral chest wall flap into the left axillary defect with defect measuring 11 x 9 cm, CPT codes are 85445 and 67527, and another 07516. SURGEON: Sagar Brambila M.D. FINE ARTS MODEL: Enzo Escalante M.D. ANESTHESIA: General. COMPLICATIONS: None. DRAINS: Included a size 15 VANESSA drain. DISPOSITION: Stable to the recovery room. INDICATIONS FOR SURGERY: This is a 22-year-old female, who is now five days status post radical excision of left axillary tissue bearing hidradenitis suppurativa, who was scheduled to undergo a flap transfer closure of her wound on 05/18/2018; however, she was having fevers and overall did not appear to be well and we decided to postpone the case. The patient was seen by the cup trimming machine operator as well as Infectious Disease doctor and it was decided to watch her over the weekend and the patient did well with a diminution in her white count and no more fevers today the day of surgery. She was consented to undergo a flap closure of the left axillary wound and understood the risks and benefits of surgery, including infection, wound dehiscence, and the need for further surgery and she agreed to proceed. DETAILS OF THE OPERATION: The patient was brought to the operating room and laid in the supine position on the operating table. Her left chest, axilla and the left arm were prepped and draped in a sterile and usual fashion. We began first by measuring the wound, which again measured 11 x 9 cm. In the left axilla, there was some marginal appearing tissue in the wound bed, which was debrided. In addition, there was some tissue in the distant portion of the left lateral chest wall flap that also had to be debrided to allow for preparation of the tissues for flap transfer. Once the debridement of the tissues on the wound bed was completed, we then proceeded to perform pulse lavage irrigation and achieved hemostasis of the entire wound bed. At this point, the flap that had been previously elevated that contained the fascia of latissimus dorsi muscle based off of perforators of the thoracodorsal artery was transposed into the left axillary wound and was noted to be of sufficient volume and size, an to allow for complete coverage of the wound. Of note, this had been previously determined at the first operation. We wanted to be sure that the flap would not need to be mobilized any further and in fact it appeared to be of adequate size and dimension, and there was no need for further mobilization of the flap. Once this was determined to be the case, a size 15 VANESSA drain was then placed in the wound bed and the flap donor site was closed with multiple sutures in a layered fashion using #0 and 2-0 Vicryl sutures in a running 2-0 Prolene, reinforced with interrupted #0 Prolene was used to close the skin. The lateral chest wall flap was then transposed allowing for the adjacent tissue transfer into the left axillary wound. The flap dimensions were 11 x 6 cm and the additional 1.5 cm of tissue that was needed to close the defect on either side was obtained from the skin flaps on either side of the wound. The flap was then placed into position and it was inset using a layered closure of #0 and 2-0 Vicryl sutures and the skin was closed as was done for the donor site of the flap using running 2-0 Prolene suture and reinforced with multiple interrupted 2-0 Prolene sutures. Dermabond was then applied to the skin. Telfa was also put on top of that and then a compressive dressing was placed. Prior to doing that the VANESSA drain was also secured and in place using a single 3-0 nylon sutures. This, thus completed the preparation of the left axillary wound bed for flap transfer and adjacent tissue transfer closure of left axillary wound once again measuring 11 x 9 cm. There were no complications. All needle and sponge counts were correct and the patient tolerated the procedure well. Sagar Brambila M.D. DR: HAIM JOB#: [id number] CC: QUENTIN
--- NOTE | 2018-05-21 20:36 | NUR ---
NURSE NOTES: RECEIVED REPORT FROm LIA Miller. Patient is in bed, aaox4, room air. Pain 4/10 left axilla. Surgical dressing c/d/i. VANESSA drain compressed, output serosanguineous. FISH AND WILDLIFE SCIENTIFIC AID teaching reinforced. IV site intact and patent with fluids running. Needs attended to. Bed low, call light within reach.
--- NOTE | 2018-05-21 20:45 | NUR ---
HAND-OFF: Report given to Lynette FITZGERALD .
[2018-05-22] VITALS (7 sets, daily range): BP systolic 90–100; BP diastolic 51–66
[2018-05-22 06:39] LABS: BASOPHILS % (AUTO) 0.5 % (0.0-2.0); EOSINOPHILS % (AUTO) 2.1 % (0.0-3.0); HEMATOCRIT 32.8 % (37.0-47.0); HEMOGLOBIN 10.8 G/DL (12.0-16.0); LYMPHOCYTES % (AUTO) 31.3 % (20.0-45.0); MEAN CORPUSCULAR VOLUME 88 FL (80-99); MONOCYTES % (AUTO) 9.9 % (1.0-10.0); NEUTROPHILS % (AUTO) 56.2 % (45.0-75.0); PLATELET COUNT 230 K/UL (150-450); RED BLOOD COUNT 3.74 M/UL (4.20-5.40); RED CELL DISTRIBUTION WIDTH 12.6 % (11.6-14.8); WHITE BLOOD COUNT 8.6 K/UL (4.8-10.8)
[2018-05-22 06:55] LABS: ANION GAP 6 mmol/L (5-15); BLOOD UREA NITROGEN 9 mg/dL (7-18); CALCIUM 8.5 MG/DL (8.5-10.1); CARBON DIOXIDE 28 MMOL/L (21-32); CHLORIDE 106 MMOL/L (98-107); CREATININE 0.8 MG/DL (0.55-1.30); POTASSIUM 3.9 MMOL/L (3.5-5.1); SODIUM 140 MMOL/L (136-145)
[2018-05-22] MEDS: PCA shift volume MISC SCH ×2 (07:00→19:00)
[2018-05-22] MEDS: Piperacillin/Tazobactam 3.375 GM in NS 110 ML IVPB SCH ×3 (07:43→21:15)
[2018-05-22] MEDS: Heparin 5000 units/ml inj SUBQ SCH ×3 (07:45→21:16)
--- NOTE | 2018-05-22 08:25 | NUR ---
HAND-OFF: Report given to LIA Miller. Patient stable.
--- NOTE | 2018-05-22 08:40 | NUR ---
NURSE NOTES: Pt is in bed financial writer assisted pt to restroom. Did not eat much of her breakfast stated she wanted to keep at bedside for al little while. Pt states she did not sleep well. Powdered Sugar Supervisor informed pt that financial writer will enter quietly not to disturb her. Father is at bedside
--- NOTE | 2018-05-22 08:52 | General Progress Note ---
Assessment/Plan Assessment/Plan (1) Left Axilla pain (2) Left axillary open wound with infected hidradenitis (3) S/p Excision and elevation of left chest wall flap (4) S/p adjacent tissue transfer closure of left axillary wound with transposition of lateral chest wall flap into the left axillary We will increase the Neurontin to 300mg TID, Percocet, Dilaudid will be changed to 1mg SubQ Q3H PRN and will be continued on the MANAGER POST Dilaudid. D/w Dr. Long and he concurred. Subjective Date patient seen: May 22, 2018 Time patient seen: 07:15 - am Constitutional: Reports: no symptoms HEENT: Reports: no symptoms Cardiovascular: Reports: no symptoms Respiratory: Reports: no symptoms Gastrointestinal/Abdominal: Reports: no symptoms Genitourinary: Reports: no symptoms Neurologic/Psychiatric: Reports: no symptoms Endocrine: Reports: no symptoms Hematologic/Lymphatic: Reports: no symptoms Allergies: Coded Allergies: AZATHIOPRINE (Verified Allergy, Unknown, 05/15/18) DOCUSATE (Verified Allergy, Unknown, 05/15/18) ok for oral LATEX (Verified Allergy, Unknown, 05/15/18) VANCOMYCIN (Verified Allergy, Unknown, 05/15/18) BISACODYL (Verified Adverse Reaction, Severe, Rash, 05/15/18) Uncoded Allergies: IODINE CONTRAST (Allergy, Unknown, 05/15/18) TAPE (Allergy, Unknown, 05/15/18) Subjective Patient is in bed s/p surgery and has been started on MANAGER POST Dilaudid as per anesthesiologist and surgeon at 0.2 Q6min and Dilaudid 2mg IV Q3H Mod pain and Dilaudid 2mg SubQ Q3H PRN severe pain. She has used 6mg of the MANAGER POST with 2 doses of Dilaudid subQ and continues to get the Percocet as scheduled. D/w patient about increasing her Neurontin and changing the Dilaudid to 1mg SubQ Q3H PRN. She seems to understand. Objective Last 24 Hour Vital Signs Date Time Temp Pulse Resp B/P (MAP) Pulse Ox O2 Delivery O2 Flow Rate FiO2 05/22/18 04:00 98.3 83 18 98/57 (71) 98 05/22/18 04:00 17 05/22/18 00:00 17 05/22/18 00:00 98.6 80 17 100/59 (73) 96 05/21/18 21:00 Room Air 05/21/18 20:00 18 05/21/18 20:00 98.8 87 104/65 (78) 05/21/18 14:59 98.6 05/21/18 14:45 69 20 104/64 100 Nasal Cannula 3 05/21/18 14:44 98.6 05/21/18 14:30 71 20 102/62 100 Nasal Cannula 3 05/21/18 14:15 70 20 103/62 100 Nasal Cannula 3 05/21/18 14:00 69 20 103/61 100 Simple Mask 8 05/21/18 13:54 73 20 104/64 100 Simple Mask 8 05/21/18 13:49 80 20 106/68 100 Simple Mask 8 05/21/18 13:44 68 20 104/61 100 Simple Mask 8 05/21/18 13:36 105 20 108/62 100 Simple Mask 8 05/21/18 13:29 92 20 108/62 100 Simple Mask 8 05/21/18 13:24 86 20 99/64 100 Simple Mask 8 05/21/18 13:19 99.3 92 20 108/62 100 Simple Mask 8 05/21/18 09:00 Room Air Intake and Output 05/21/18 05/22/18 19:00 07:00 Intake Total 3137.5 ml 1400 ml Output Total 180 ml Balance 2957.5 ml 1400 ml Intake Oral 800 ml IV Total 3137.5 ml 600 ml Output Drainage Total 30 ml Estimated Blood Loss 150 ml # Voids 2 2 # Bowel Movements 1 1 Laboratory Tests 05/22/18 06:21: White Blood Count 8.6, Red Blood Count 3.74L, Hemoglobin 10.8L, Hematocrit 32.8L , Mean Corpuscular Volume 88, Mean Corpuscular Hemoglobin 29.0, Mean Corpuscular Hemoglobin Concent 33.0, Red Cell Distribution Width 12.6, Platelet Count 230, Mean Platelet Volume 5.8L, Neutrophils (%) (Auto) 56.2, Lymphocytes ( %) (Auto) 31.3, Monocytes (%) (Auto) 9.9, Eosinophils (%) (Auto) 2.1, Basophils (%) (Auto) 0.5, Sodium Level 140, Potassium Level 3.9, Chloride Level 106, Carbon Dioxide Level 28, Anion Gap 6, Blood Urea Nitrogen 9, Creatinine 0.8, Estimat Glomerular Filtration Rate > 60, Glucose Level 121H, Calcium Level 8.5 Height (Feet): 5 Height (Inches): 5.00 Weight (Pounds): 170 General Appearance: no apparent distress, alert EENT: PERRL/EOMI, normal ENT inspection Neck: non-tender, normal alignment Cardiovascular: normal rate, regular rhythm Respiratory/Chest: lungs clear, normal breath sounds Abdomen: non tender, soft Extremities: other - left axilla bandages noted Edema: no edema noted Arm (L), no edema noted Arm (R), no edema noted Leg (L), no edema noted Leg (R), no edema noted Pedal (L), no edema noted Pedal (R), no edema noted Generalized Neurologic: alert, oriented x 3 Skin: warm/dry Hao Aldana May 22, 2018 08:52
[2018-05-22] MEDS ORDERED: HYDROmorphone 1mg/ml Carpuject SUBQ PRN (09:00)
[2018-05-22] MEDS ORDERED: Naloxone 0.4mg/ml Inj IVP PRN (09:00)
--- NOTE | 2018-05-22 09:37 | NUR ---
NURSE NOTES: Call placed to Dr Gaona for clarification of of Percocet 10/325 order, to be given routine q6 hours with use of TRANSFILL TECHNICIAN pump. gave instructions to discontinue use of TRANSFILL TECHNICIAN Pump tomorrow. Percocet 10/325 will be given Pharmacy phoned to update them that both are in use under the direction of Dr Gaona jingle writer spoke to Pam
[2018-05-22] MEDS: ARIPiprazole 2mg tab ORAL SCH (09:50)
[2018-05-22] MEDS: Lactobacillus-GG tablet ORAL SCH ×2 (09:50→18:23)
--- NOTE | 2018-05-22 11:12 | GI Progress Note ---
Assessment/Plan Problems: (1) Hidradenitis suppurativa of left axilla ICD Codes: L73.2 - Hidradenitis suppurativa SNOMED: 156990489 (2) Crohns disease ICD Codes: K50.90 - Crohn's disease, unspecified, without complications SNOMED: 02386001 Status: stable, unchanged Status Narrative Discussed with Dr. Terrazas Assessment/Plan Status post surgery, closure of open left axillary wound Follow-up surgical recommendations Remicade pushed for one week per patient primary GI abx per ID pain mgmt Postoperative care The patient was seen and examined at bedside and all new and available data was reviewed in the patients chart. I agree with the above findings, impression and plan. (Patient seen earlier today. Signature stamp does not reflect patient encounter time.). - Moshe Terrazas MD Subjective Gastrointestinal/Abdominal: Reports: abdominal pain Objective Last 24 Hour Vital Signs Date Time Temp Pulse Resp B/P (MAP) Pulse Ox O2 Delivery O2 Flow Rate FiO2 05/22/18 04:00 98.3 83 18 98/57 (71) 98 05/22/18 04:00 17 05/22/18 00:00 17 05/22/18 00:00 98.6 80 17 100/59 (73) 96 05/21/18 21:00 Room Air 05/21/18 20:00 18 05/21/18 20:00 98.8 87 104/65 (78) 05/21/18 14:59 98.6 05/21/18 14:45 69 20 104/64 100 Nasal Cannula 3 05/21/18 14:44 98.6 05/21/18 14:30 71 20 102/62 100 Nasal Cannula 3 05/21/18 14:15 70 20 103/62 100 Nasal Cannula 3 05/21/18 14:00 69 20 103/61 100 Simple Mask 8 05/21/18 13:54 73 20 104/64 100 Simple Mask 8 05/21/18 13:49 80 20 106/68 100 Simple Mask 8 05/21/18 13:44 68 20 104/61 100 Simple Mask 8 05/21/18 13:36 105 20 108/62 100 Simple Mask 8 05/21/18 13:29 92 20 108/62 100 Simple Mask 8 05/21/18 13:24 86 20 99/64 100 Simple Mask 8 05/21/18 13:19 99.3 92 20 108/62 100 Simple Mask 8 Intake and Output 05/21/18 05/22/18 19:00 07:00 Intake Total 3137.5 ml 1400 ml Output Total 180 ml Balance 2957.5 ml 1400 ml Intake Oral 800 ml IV Total 3137.5 ml 600 ml Output Drainage Total 30 ml Estimated Blood Loss 150 ml # Voids 2 2 # Bowel Movements 1 1 Laboratory Tests Test 05/22/18 06:21 White Blood Count 8.6 K/UL (4.8-10.8) Red Blood Count 3.74 M/UL (4.20-5.40) L Hemoglobin 10.8 G/DL (12.0-16.0) L Hematocrit 32.8 % (37.0-47.0) L Mean Corpuscular Volume 88 FL (80-99) Mean Corpuscular Hemoglobin 29.0 PG (27.0-31.0) Mean Corpuscular Hemoglobin Concent 33.0 G/DL (32.0-36.0) Red Cell Distribution Width 12.6 % (11.6-14.8) Platelet Count 230 K/UL (150-450) Mean Platelet Volume 5.8 FL (6.5-10.1) L Neutrophils (%) (Auto) 56.2 % (45.0-75.0) Lymphocytes (%) (Auto) 31.3 % (20.0-45.0) Monocytes (%) (Auto) 9.9 % (1.0-10.0) Eosinophils (%) (Auto) 2.1 % (0.0-3.0) Basophils (%) (Auto) 0.5 % (0.0-2.0) Sodium Level 140 MMOL/L (136-145) Potassium Level 3.9 MMOL/L (3.5-5.1) Chloride Level 106 MMOL/L (98-107) Carbon Dioxide Level 28 MMOL/L (21-32) Anion Gap 6 mmol/L (5-15) Blood Urea Nitrogen 9 mg/dL (7-18) Creatinine 0.8 MG/DL (0.55-1.30) Estimat Glomerular Filtration Rate > 60 mL/min (>60) Glucose Level 121 MG/DL (74-106) H Calcium Level 8.5 MG/DL (8.5-10.1) Height (Feet): 5 Height (Inches): 5.00 Weight (Pounds): 170 General Appearance: WD/WN, no apparent distress, alert Cardiovascular: normal rate Respiratory/Chest: normal breath sounds, no respiratory distress Abdominal Exam: normal bowel sounds, non tender, soft, incision site Extremities: normal range of motion, non-tender Joy Malone NP May 22, 2018 11:12
--- NOTE | 2018-05-22 12:42 | General Progress Note ---
Progress Note Progress Note Pt seen and examined. POD# 1 from flap closure reconstruction of left axilla. Doing well. Pain is better controlled. Plan for continued DIETARY AID for now and IV abx. Will take down dressings in 2 days. Plan for possible discharge home on or Monday. Sagar Campbell MD, MD May 22, 2018 12:42
--- NOTE | 2018-05-22 13:21 | NUR ---
NURSE NOTES: Dr Huynh here to see pt gave instructions to keep bandage intact. Bandage is clean and dry. No presence of blood to outer bandage. VANESSA drain is functioning, brown colored fluid. Pt is currently on her cycle, pads given. provided with update on pt. Per pt her pt is at a 6 on 1-10 pain scale. Dilaudid 1 mg , for break through pain. Respirations are stable, pt is awake gait is stable. Current plan of care will be followed.
--- NOTE | 2018-05-22 13:35 | NUR ---
NURSE NOTES: Per dr Win case management consult put in place for home physical therapy. Possible discharge May 24 2018
--- NOTE | 2018-05-22 13:51 | General Progress Note ---
Assessment/Plan Assessment/Plan 22 year old female with PMH of Crohns disease on Remicade (Next dose 05/21/18), anxiety and hidradenitis suppurativa who presented with pain in L axillary region with open wound and drainage. #Hidradenitis suppurativa on L axilla s/p surgery at OSH with open wound #Possible wound infection/abscess s/p Excision of the left axillary hidradenitis tissue and Elevation of a fasciocutaneous left lateral chest wall flap #Sepsis due to suspected soft tissue infection #Pseudomonas UTI - plastic surgery following, s/p wound closure today, continue routine post op care including DVT prophylaxis, IS and other supportive measures - Continue broad spectrum antibiotics per ID - f/u cultures - continue current pain regimen as per pain management team - Encourage mobilization/ambulation - Encourage incentive spirometry to optimize pulmonary hygiene - DVT/GI prophylaxis as appropriate - SCD #Crohns disease -on Remicade - next dose was to be 05/21/18 but held for now per GI recs -GI following -CTM #Anxiety - c/w home meds #Hypokalemia, resolved - trend chem periodically & supplement as needed Code status Supervisor Propellant Charge Loading of note, may not reflect time of encounter Subjective Date patient seen: May 22, 2018 Time patient seen: 09:15 ROS Limited/Unobtainable: No Constitutional: Denies: chills, fever Cardiovascular: Denies: chest pain Respiratory: Denies: cough Gastrointestinal/Abdominal: Denies: abdomen distended Genitourinary: Denies: burning Neurologic/Psychiatric: Denies: anxiety Endocrine: Denies: excessive sweating Hematologic/Lymphatic: Denies: anemia Allergies: Coded Allergies: AZATHIOPRINE (Verified Allergy, Unknown, 05/15/18) DOCUSATE (Verified Allergy, Unknown, 05/15/18) ok for oral LATEX (Verified Allergy, Unknown, 05/15/18) VANCOMYCIN (Verified Allergy, Unknown, 05/15/18) BISACODYL (Verified Adverse Reaction, Severe, Rash, 05/15/18) Uncoded Allergies: IODINE CONTRAST (Allergy, Unknown, 05/15/18) TAPE (Allergy, Unknown, 05/15/18) Subjective Medicine follow up for hidradenitis suppurativa with possible sepsis related to soft tissue abscess. Patient underwent wound closure yesterday Pain control has been an issue but she feels well overall Objective Last 24 Hour Vital Signs Date Time Temp Pulse Resp B/P (MAP) Pulse Ox O2 Delivery O2 Flow Rate FiO2 05/22/18 12:00 97.0 85 18 96/59 (71) 05/22/18 09:00 Room Air 05/22/18 08:00 98.1 16 90/60 (70) 05/22/18 04:00 98.3 83 18 98/57 (71) 98 05/22/18 04:00 17 05/22/18 00:00 17 05/22/18 00:00 98.6 80 17 100/59 (73) 96 05/21/18 21:00 Room Air 05/21/18 20:00 18 05/21/18 20:00 98.8 87 104/65 (78) 05/21/18 14:59 98.6 05/21/18 14:45 69 20 104/64 100 Nasal Cannula 3 05/21/18 14:44 98.6 05/21/18 14:30 71 20 102/62 100 Nasal Cannula 3 05/21/18 14:15 70 20 103/62 100 Nasal Cannula 3 05/21/18 14:00 69 20 103/61 100 Simple Mask 8 05/21/18 13:54 73 20 104/64 100 Simple Mask 8 05/21/18 13:49 80 20 106/68 100 Simple Mask 8 Intake and Output 05/21/18 05/22/18 19:00 07:00 Intake Total 3137.5 ml 1400 ml Output Total 180 ml Balance 2957.5 ml 1400 ml Intake Oral 800 ml IV Total 3137.5 ml 600 ml Output Drainage Total 30 ml Estimated Blood Loss 150 ml # Voids 2 2 # Bowel Movements 1 1 Laboratory Tests 05/22/18 06:21: White Blood Count 8.6, Red Blood Count 3.74L, Hemoglobin 10.8L, Hematocrit 32.8L , Mean Corpuscular Volume 88, Mean Corpuscular Hemoglobin 29.0, Mean Corpuscular Hemoglobin Concent 33.0, Red Cell Distribution Width 12.6, Platelet Count 230, Mean Platelet Volume 5.8L, Neutrophils (%) (Auto) 56.2, Lymphocytes ( %) (Auto) 31.3, Monocytes (%) (Auto) 9.9, Eosinophils (%) (Auto) 2.1, Basophils (%) (Auto) 0.5, Sodium Level 140, Potassium Level 3.9, Chloride Level 106, Carbon Dioxide Level 28, Anion Gap 6, Blood Urea Nitrogen 9, Creatinine 0.8, Estimat Glomerular Filtration Rate > 60, Glucose Level 121H, Calcium Level 8.5 Height (Feet): 5 Height (Inches): 5.00 Weight (Pounds): 170 General Appearance: no apparent distress, alert Neck: non-tender, normal alignment, supple, normal inspection Cardiovascular: normal rate, regular rhythm, regularly irregular Respiratory/Chest: chest wall non-tender, lungs clear, normal breath sounds Abdomen: normal bowel sounds, non tender Extremities: normal range of motion, non-tender Markie Ortega MD May 22, 2018 13:51
--- NOTE | 2018-05-22 14:03 | 48 Hour Post Anesthesia Eval ---
Post Anesthesia Evaluation Procedure: L Axilla Debridement with Flap Date of Evaluation: May 22, 2018 Time of Evaluation: 14:02 Blood Pressure Systolic: 96 0: 59 Pulse Rate: 85 Respiratory Rate: 18 Temperature (Fahrenheit): 97 O2 Sat by Pulse Oximetry: 98 Airway: patent Nausea: No Vomiting: No Pain Intensity: 2 Hydration Status: adequate Cardiopulmonary Status: Stable Mental Status/LOC: patient returned to baseline Follow-up Care/Observations: 0 Post-Anesthesia Complications: 0 Follow-up care needed: N/A Jadon Tripp MD May 22, 2018 14:03
--- NOTE | 2018-05-22 14:10 | NUR ---
CASE MANAGEMENT:REVIEW 05/22/18 SI: POD #5 AND POD #1 HIDRADENITIS SUPPURATIVE LT AXILLA 98.1 83 16 90/60 98% ON RA H/H-10.8/32.8 IS: IV ZOSYN Q8HRS IV DAPTOMYCIN Q24 IVF@75/HR HEPARIN SQ Q12 DUCT LAYER DILAUDID : MED/SURG STATUS 3 EAST PLAN: MESSAGE LEFT FOR PATIENT'S "LIVE HEALTHY PHOTOGRAMMETRIC TECHNICIAN" CYDNEY @ [phone] PATIENT WILL DISCHARGE EITHER MONDAY OR MONDAY AND WILL NEED HOME HEALTH FOR WOUND CARE IN THE [facility]
--- NOTE | 2018-05-22 14:38 | NUR ---
RD ASSESSMENT & RECOMMENDATIONS SEE CARE ACTIVITY FOR COMPLETE ASSESSMENT DAILY ESTIMATED NEEDS: Needs based on Surgery, abscess 62kg adj 25-30 kcals/kg 0653-5661 total kcals 1.25-1.5 g protein/kg 78-93 g total protein 25-30 mL/kg 9725-7024 total fluid mLs NUTRITION DIAGNOSIS: Increase KCAL, protein, and micronutrient needs R/T surgery and wound healing as evidenced by h/o hidradenitis s/p debridement and wound closure of L axilla CURRENT DIET: Regular PO DIET RECOMMENDATIONS: Regular ADDITIONAL RECOMMENDATIONS: 1) Obtain a standing weight as able 2) Wound care: add ALEX BID + MVI x1 + Vit C 250mg BID 3) High pro snacks w/ variable po intake
--- NOTE | 2018-05-22 14:46 | Infectious Diseases Prog Note ---
Assessment/Plan Assessment/Plan ASSESSMENT AND PLAN: 1. left axilla infected wound/infected hidradenitis suppurativa, pseudomonas uti , ? viral syndrome, sinusitis, pharyngitis, fevers, leukocytosis, ? sepsis, s/p left axilla hidradenitis excision and flap elevation - daptomycin, zosyn - s/p wound/flap closure - fever curve improved - monitor labs - d/w Dr. Brambila 2. hx anxiety 3. Crohn disease. She is on Remicade - GI f/u 4. History of hidradenitis suppurativa, multiple surgeries. 5. Allergies to azithromycin, bisacodyl, docusate, iodine contrast, latex, tape, and vancomycin. 6. Social history is negative. 7. Family history is noncontributory. 8. MAR was noted. 9. Case was discussed with RN. 10. Continue treatment per primary consultants. 11. Case was discussed with the patient 12. Case was discussed with Dr. Celeste Schuster, primary care. Subjective Constitutional: Denies: fever HEENT: Reports: other - + sinus congestion and sore throat ; Denies: congestion Respiratory: Denies: shortness of breath Cardiovascular: Denies: chest pain Gastrointestinal/Abdominal: Denies: nausea, vomiting, diarrhea Genitourinary: Reports: other - no santana Neurologic: Denies: headache Psychiatric: Denies: depression Skin: Denies: rash Hematologic: Denies: bleeding Musculoskeletal: Denies: pain Allergies: Coded Allergies: AZATHIOPRINE (Verified Allergy, Unknown, 05/15/18) DOCUSATE (Verified Allergy, Unknown, 05/15/18) ok for oral LATEX (Verified Allergy, Unknown, 05/15/18) VANCOMYCIN (Verified Allergy, Unknown, 05/15/18) BISACODYL (Verified Adverse Reaction, Severe, Rash, 05/15/18) Uncoded Allergies: IODINE CONTRAST (Allergy, Unknown, 05/15/18) TAPE (Allergy, Unknown, 05/15/18) Objective Vital Signs Last 24 Hour Vital Signs Date Time Temp Pulse Resp B/P (MAP) Pulse Ox O2 Delivery O2 Flow Rate FiO2 05/22/18 14:03 85 18 98 05/22/18 12:00 18 05/22/18 12:00 97.0 85 18 96/59 (71) 05/22/18 09:00 Room Air 4/2/19 08:00 98.1 16 90/60 (70) 05/22/18 04:00 98.3 83 18 98/57 (71) 98 05/22/18 04:00 17 05/22/18 00:00 17 05/22/18 00:00 98.6 80 17 100/59 (73) 96 05/21/18 21:00 Room Air 05/21/18 20:00 18 05/21/18 20:00 98.8 87 104/65 (78) 05/21/18 14:59 98.6 05/21/18 14:45 69 20 104/64 100 Nasal Cannula 3 05/21/18 14:44 98.6 Height (Feet): 5 Height (Inches): 5.00 Weight (Pounds): 170 General Appearance: no acute distress HEENT: normocephalic, atraumatic, anicteric, mucous membranes moist Respiratory/Chest: lungs clear, normal breath sounds, no respiratory distress, no accessory muscle use Cardiovascular: normal rate, regular rhythm, no gallop/murmur, no JVD Abdomen: normal bowel sounds, soft, non tender, no organomegaly, non distended Genitourinary: other - no santana Extremities: no cyanosis Skin: no rash Neurologic/Psychiatric: clinical coordinator II-XII grossly normal, alert, responsive Lymphatic: no neck adenopathy Musculoskeletal: no effusion Objective Chest x-ray - left atx, report noted Microbiology Date/Time Source Procedure Growth Status 05/18/18 12:15 Blood Blood Culture - Preliminary NO GROWTH AFTER 72 HOURS Resulted 05/18/18 13:40 Urine,Clean Catch Urine Culture - Final Pseudomonas Aeruginosa Complete Laboratory Tests Test 05/22/18 06:21 White Blood Count 8.6 K/UL (4.8-10.8) Red Blood Count 3.74 M/UL (4.20-5.40) L Hemoglobin 10.8 G/DL (12.0-16.0) L Hematocrit 32.8 % (37.0-47.0) L Mean Corpuscular Volume 88 FL (80-99) Mean Corpuscular Hemoglobin 29.0 PG (27.0-31.0) Mean Corpuscular Hemoglobin Concent 33.0 G/DL (32.0-36.0) Red Cell Distribution Width 12.6 % (11.6-14.8) Platelet Count 230 K/UL (150-450) Mean Platelet Volume 5.8 FL (6.5-10.1) L Neutrophils (%) (Auto) 56.2 % (45.0-75.0) Lymphocytes (%) (Auto) 31.3 % (20.0-45.0) Monocytes (%) (Auto) 9.9 % (1.0-10.0) Eosinophils (%) (Auto) 2.1 % (0.0-3.0) Basophils (%) (Auto) 0.5 % (0.0-2.0) Sodium Level 140 MMOL/L (136-145) Potassium Level 3.9 MMOL/L (3.5-5.1) Chloride Level 106 MMOL/L (98-107) Carbon Dioxide Level 28 MMOL/L (21-32) Anion Gap 6 mmol/L (5-15) Blood Urea Nitrogen 9 mg/dL (7-18) Creatinine 0.8 MG/DL (0.55-1.30) Estimat Glomerular Filtration Rate > 60 mL/min (>60) Glucose Level 121 MG/DL (74-106) H Calcium Level 8.5 MG/DL (8.5-10.1) Current Medications Medications (Trade) Dose Ordered Sig/Alix Route PRN Reason Start Time Stop Time Status Last Admin Dose Admin Acetaminophen (Tylenol) 650 mg Q4H PRN ORAL FEVER 05/21/18 11:00 06/20/18 10:59 Aripiprazole (Abilify) 2 mg DAILY ORAL 05/16/18 09:00 06/15/18 08:59 05/22/18 09:50 Daptomycin 300 mg/ Sodium Chloride 55 ml @ 100 mls/hr Q24H IV 05/18/18 16:00 05/25/18 15:59 05/21/18 17:53 Dextrose (Dextrose 50%) 25 ml Q30M PRN IV Hypoglycemia 05/15/18 18:15 06/14/18 18:14 Dextrose (Dextrose 50%) 50 ml Q30M PRN IV Hypoglycemia 05/15/18 18:15 06/14/18 18:14 Diphenhydramine HCl (Benadryl) 25 mg Q6H PRN ORAL Itching/Pruritis 05/15/18 18:15 06/14/18 18:14 05/22/18 02:52 Gabapentin (Neurontin) 300 mg THREE TIMES A DAY ORAL 05/22/18 09:00 06/16/18 09:29 05/22/18 13:42 Heparin Sodium (Porcine) (Heparin 5000 units/ml) 5,000 units EVERY 8 HOURS SUBQ 05/21/18 14:00 06/20/18 13:59 05/22/18 13:46 Hydromorphone HCl 30 ml @ 0 mls/hr Q24H PRN IV For Pain 05/21/18 11:00 05/23/18 10:59 05/21/18 13:54 Hydromorphone HCl (Dilaudid) 1 mg Q3H PRN SUBQ severe breakthrough pain 05/22/18 09:00 05/29/18 08:59 05/22/18 12:43 Lactobacillus Acidophilus (Culturelle) 1 tab TWICE A DAY ORAL 05/17/18 18:00 06/16/18 17:59 05/22/18 09:50 Magnesium Hydroxide (Mom) 30 ml HSPRN PRN ORAL Constipation 05/15/18 18:15 06/14/18 18:14 Miscellaneous Medication (EXTERNAL GRINDER Rate Change) 1 ea DAILY PRN MISC rate change 05/21/18 11:00 05/23/18 10:59 Miscellaneous Medication (EXTERNAL GRINDER shift volume) 1 ea Q12HR@0700,1900 MISC 05/21/18 19:00 05/23/18 18:59 05/22/18 07:00 Naloxone HCl (Narcan) 0.2 mg Q30M PRN IVP respiratory distress 05/22/18 09:00 06/21/18 08:59 Nystatin (Nystatin Cr) 1 applic DAILY TOPIC 05/19/18 09:00 06/18/18 08:59 05/20/18 08:48 Ondansetron HCl (Zofran) 4 mg Q6H PRN IVP Nausea & Vomiting 05/21/18 11:00 06/20/18 10:59 Oxycodone/ Acetaminophen (Percocet 10/325) 1 tab Q6H ORAL 05/18/18 10:00 05/25/18 09:14 05/22/18 09:51 Piperacillin Sod/ Tazobactam Sod 3.375 gm/Sodium Chloride 110 ml @ 27.5 mls/hr EVERY 8 HOURS IVPB 05/18/18 14:00 05/28/18 13:59 05/22/18 13:45 Polyethylene Glycol (Miralax) 17 gm HSPRN PRN ORAL Constipation 05/15/18 18:15 06/14/18 18:14 05/19/18 21:30 Sodium Chloride 1,000 ml @ 75 mls/hr [id number] IV 05/15/18 19:15 06/14/18 19:14 05/21/18 22:15 Temazepam (Restoril) 7.5 mg DAILYPRN PRN ORAL Insomnia 05/16/18 10:00 05/23/18 09:59 Zolpidem Tartrate (Ambien) 5 mg DAILYPRN PRN ORAL Insomnia 05/21/18 11:00 05/28/18 10:59 Niya Holley MD May 22, 2018 14:46
--- NOTE | 2018-05-22 15:38 | NUR ---
*-* INSURANCE *-* ALL CLINICALS , REVIEW HAVE BEEN FAXED TO: KAREN HERNANDEZ: LYNETTE Yeung P- [phone] f- [phone] TRACKING NUMBER [id number]
[2018-05-22] MEDS: DAPTOmycin 300 MG in NS 55 ML IV SCH (18:23)
--- NOTE | 2018-05-22 18:30 | NUR ---
NURSE NOTES: Pt is comfortable ZOO DIRECTOR pump in use, Call light is in reach. Provide with sanitary napkins due to pt being on her menstrual cycle. Call light is in reach bed is it lowered position. IV site remains patent , but due to pt repeated need for bathroom needs site is at risk for dislodgement. Current plan of care will be followed
--- NOTE | 2018-05-22 19:35 | NUR ---
HAND-OFF: Report given to .Mirtha FITZGERALD
--- NOTE | 2018-05-22 19:36 | NUR ---
NURSE NOTES: Received report & pt from LIA Hernandez. Pt lying in bed. a&ox4, on O2 via NC @ 2lpm (PRN). No s/s of acute distress & c/o 07/30 pain. VANESSA drain to bulb suction. IV site intact with IVF running as ordered. Surgical dressing C/D/I. PLANT PACKER setting checked. Bed in lowest position, PLANT PACKER pump & call light within reach. Will continue to monitor.
[2018-05-23 04:00] VITALS: BP 94/61
[2018-05-23] MEDS: Heparin 5000 units/ml inj SUBQ SCH ×3 (05:02→21:43)
[2018-05-23] MEDS: Piperacillin/Tazobactam 3.375 GM in NS 110 ML IVPB SCH ×2 (05:04→17:11)
[2018-05-23 06:43] LABS: BASOPHILS % (AUTO) 0.8 % (0.0-2.0); EOSINOPHILS % (AUTO) 2.3 % (0.0-3.0); HEMATOCRIT 33.7 % (37.0-47.0); HEMOGLOBIN 10.9 G/DL (12.0-16.0); LYMPHOCYTES % (AUTO) 33.1 % (20.0-45.0); MEAN CORPUSCULAR VOLUME 88 FL (80-99); MONOCYTES % (AUTO) 7.9 % (1.0-10.0); NEUTROPHILS % (AUTO) 55.9 % (45.0-75.0); PLATELET COUNT 248 K/UL (150-450); RED BLOOD COUNT 3.82 M/UL (4.20-5.40); RED CELL DISTRIBUTION WIDTH 12.6 % (11.6-14.8); WHITE BLOOD COUNT 8.5 K/UL (4.8-10.8)
[2018-05-23 07:03] LABS: ANION GAP 8 mmol/L (5-15); BLOOD UREA NITROGEN 13 mg/dL (7-18); CALCIUM 9.2 MG/DL (8.5-10.1); CARBON DIOXIDE 28 MMOL/L (21-32); CHLORIDE 103 MMOL/L (98-107); CREATININE 0.8 MG/DL (0.55-1.30); SODIUM 139 MMOL/L (136-145)
[2018-05-23] MEDS: PCA shift volume MISC SCH ×2 (07:04→19:00)
--- NOTE | 2018-05-23 07:19 | NUR ---
HAND-OFF: Report given to LIA Hernandez. Pt in stable condition.
--- NOTE | 2018-05-23 07:43 | NUR ---
NURSE NOTES: Pt currently sleeping, per pt has not been able to sleep due to discomfort of axillary area, Father is at her bedside, RECEPTIONIST pending d/c . Current plan will be followed
[2018-05-23 08:00] VITALS: BP 107/75
--- NOTE | 2018-05-23 08:47 | General Progress Note ---
Assessment/Plan Assessment/Plan (1) Left Axilla pain (2) Left axillary open wound with infected hidradenitis (3) S/p Excision and elevation of left chest wall flap (4) S/p adjacent tissue transfer closure of left axillary wound with transposition of lateral chest wall flap into the left axillary We will continue Neurontin, Percocet, Dilaudid and discontinue the CARNIVAL WORKER Dilaudid. D/w Dr. Long and he concurred. Subjective Date patient seen: May 23, 2018 Time patient seen: 07:30 - am Constitutional: Reports: no symptoms HEENT: Reports: no symptoms Cardiovascular: Reports: no symptoms Respiratory: Reports: no symptoms Gastrointestinal/Abdominal: Reports: no symptoms Genitourinary: Reports: no symptoms Neurologic/Psychiatric: Reports: no symptoms Endocrine: Reports: no symptoms Hematologic/Lymphatic: Reports: no symptoms Allergies: Coded Allergies: AZATHIOPRINE (Verified Allergy, Unknown, 05/15/18) DOCUSATE (Verified Allergy, Unknown, 05/15/18) ok for oral LATEX (Verified Allergy, Unknown, 05/15/18) VANCOMYCIN (Verified Allergy, Unknown, 05/15/18) BISACODYL (Verified Adverse Reaction, Severe, Rash, 05/15/18) Uncoded Allergies: IODINE CONTRAST (Allergy, Unknown, 05/15/18) TAPE (Allergy, Unknown, 05/15/18) Subjective Patient is in bed and has been tolerating the pain on the CARNIVAL WORKER Dilaudid and Percocet. She has used 7.6mg of the CARNIVAL WORKER and is getting the Percocet as scheduled. D/w patient about stopping the CARNIVAL WORKER and she seems to understand. Objective Last 24 Hour Vital Signs Date Time Temp Pulse Resp B/P (MAP) Pulse Ox O2 Delivery O2 Flow Rate FiO2 05/23/18 04:00 18 05/23/18 04:00 98.7 88 19 94/61 (72) 96 05/23/18 00:00 18 05/22/18 23:53 98.9 97 18 98/66 (77) 95 05/22/18 21:00 Room Air 05/22/18 20:00 19 05/22/18 20:00 98.3 75 19 100/51 (67) 100 05/22/18 16:00 16 05/22/18 16:00 98.1 75 19 90/60 (70) 97 05/22/18 14:03 85 18 98 05/22/18 12:00 18 05/22/18 12:00 97.0 85 18 96/59 (71) 05/22/18 09:00 Room Air Intake and Output 05/22/18 05/23/18 19:00 07:00 Intake Total 885.0 ml 1360 ml Output Total 15 ml 40 ml Balance 870.0 ml 1320 ml Intake Oral 720 ml 480 ml IV Total 165.0 ml 880 ml Output Drainage Total 15 ml 40 ml # Voids 3 4 # Bowel Movements 1 Laboratory Tests 05/23/18 05:15: White Blood Count 8.5, Red Blood Count 3.82L, Hemoglobin 10.9L, Hematocrit 33.7L , Mean Corpuscular Volume 88, Mean Corpuscular Hemoglobin 28.5, Mean Corpuscular Hemoglobin Concent 32.3, Red Cell Distribution Width 12.6, Platelet Count 248, Mean Platelet Volume 5.6L, Neutrophils (%) (Auto) 55.9, Lymphocytes ( %) (Auto) 33.1, Monocytes (%) (Auto) 7.9, Eosinophils (%) (Auto) 2.3, Basophils (%) (Auto) 0.8, Sodium Level 139, Potassium Level 4.0, Chloride Level 103, Carbon Dioxide Level 28, Anion Gap 8, Blood Urea Nitrogen 13, Creatinine 0.8, Estimat Glomerular Filtration Rate > 60, Glucose Level 107H, Calcium Level 9.2 Height (Feet): 5 Height (Inches): 5.00 Weight (Pounds): 170 Objective General Appearance: no apparent distress, alert EENT: PERRL/EOMI, normal ENT inspection Neck: non-tender, normal alignment Cardiovascular: normal rate, regular rhythm Respiratory/Chest: lungs clear, normal breath sounds Abdomen: non tender, soft Extremities: other - left axilla bandages noted Edema: no edema noted Arm (L), no edema noted Arm (R), no edema noted Leg (L), no edema noted Leg (R), no edema noted Pedal (L), no edema noted Pedal (R), no edema noted Generalized Neurologic: alert, oriented x 3 Skin: warm/dry Hao Aldana May 23, 2018 08:47
[2018-05-23] MEDS: ARIPiprazole 2mg tab ORAL SCH (10:00)
[2018-05-23] MEDS: Lactobacillus-GG tablet ORAL SCH ×2 (10:01→17:00)
--- NOTE | 2018-05-23 10:26 | General Progress Note ---
Assessment/Plan Assessment/Plan 22 year old female with PMH of Crohns disease on Remicade (Next dose 05/21/18), anxiety and hidradenitis suppurativa who presented with pain in L axillary region with open wound and drainage. #Hidradenitis suppurativa on L axilla s/p surgery at OSH with open wound #Possible wound infection/abscess s/p Excision of the left axillary hidradenitis tissue and Elevation of a fasciocutaneous left lateral chest wall flap #Sepsis due to suspected soft tissue infection #Pseudomonas UTI - plastic surgery following, s/p wound closure, continue routine post op care including DVT prophylaxis, IS and other supportive measures - Continue broad spectrum antibiotics per ID - f/u cultures - continue current pain regimen as per pain management team, attempt to wean off TOOLING INSPECTOR in preparation for discharge - Encourage mobilization/ambulation - Encourage incentive spirometry to optimize pulmonary hygiene #Crohns disease -on Remicade - next dose was to be 05/21/18 but held for now per GI recs -GI following -CTM #Anxiety - c/w home meds #Hypokalemia, resolved - trend chem periodically & supplement as needed Code status Hosiery Pairer of note, may not reflect time of encounter Subjective Date patient seen: May 23, 2018 Time patient seen: 10:15 ROS Limited/Unobtainable: No Constitutional: Denies: chills, fever Cardiovascular: Denies: chest pain, edema Respiratory: Denies: cough, orthopnea, shortness of breath Gastrointestinal/Abdominal: Denies: abdomen distended, abdominal pain Genitourinary: Denies: burning Neurologic/Psychiatric: Denies: anxiety Allergies: Coded Allergies: AZATHIOPRINE (Verified Allergy, Unknown, 05/15/18) DOCUSATE (Verified Allergy, Unknown, 05/15/18) ok for oral LATEX (Verified Allergy, Unknown, 05/15/18) VANCOMYCIN (Verified Allergy, Unknown, 05/15/18) BISACODYL (Verified Adverse Reaction, Severe, Rash, 05/15/18) Uncoded Allergies: IODINE CONTRAST (Allergy, Unknown, 05/15/18) TAPE (Allergy, Unknown, 05/15/18) Subjective Medicine follow up for hidradenitis suppurativa with possible sepsis related to soft tissue abscess + UTI Patient hesitant to come off TOOLING INSPECTOR as recommended by pain management Objective Last 24 Hour Vital Signs Date Time Temp Pulse Resp B/P (MAP) Pulse Ox O2 Delivery O2 Flow Rate FiO2 05/23/18 04:00 18 05/23/18 04:00 98.7 88 19 94/61 (72) 96 05/23/18 00:00 18 05/22/18 23:53 98.9 97 18 98/66 (77) 95 05/22/18 21:00 Room Air 05/22/18 20:00 19 05/22/18 20:00 98.3 75 19 100/51 (67) 100 05/22/18 16:00 16 05/22/18 16:00 98.1 75 19 90/60 (70) 97 05/22/18 14:03 85 18 98 05/22/18 12:00 18 05/22/18 12:00 97.0 85 18 96/59 (71) Intake and Output 05/22/18 05/23/18 19:00 07:00 Intake Total 885.0 ml 1360 ml Output Total 15 ml 40 ml Balance 870.0 ml 1320 ml Intake Oral 720 ml 480 ml IV Total 165.0 ml 880 ml Output Drainage Total 15 ml 40 ml # Voids 3 4 # Bowel Movements 1 Laboratory Tests 05/23/18 05:15: White Blood Count 8.5, Red Blood Count 3.82L, Hemoglobin 10.9L, Hematocrit 33.7L , Mean Corpuscular Volume 88, Mean Corpuscular Hemoglobin 28.5, Mean Corpuscular Hemoglobin Concent 32.3, Red Cell Distribution Width 12.6, Platelet Count 248, Mean Platelet Volume 5.6L, Neutrophils (%) (Auto) 55.9, Lymphocytes ( %) (Auto) 33.1, Monocytes (%) (Auto) 7.9, Eosinophils (%) (Auto) 2.3, Basophils (%) (Auto) 0.8, Sodium Level 139, Potassium Level 4.0, Chloride Level 103, Carbon Dioxide Level 28, Anion Gap 8, Blood Urea Nitrogen 13, Creatinine 0.8, Estimat Glomerular Filtration Rate > 60, Glucose Level 107H, Calcium Level 9.2 Height (Feet): 5 Height (Inches): 5.00 Weight (Pounds): 170 General Appearance: no apparent distress, alert Neck: normal alignment, supple, normal inspection Cardiovascular: normal rate, regular rhythm, regularly irregular Respiratory/Chest: lungs clear, normal breath sounds, no respiratory distress Abdomen: non tender, soft Markie Ortega MD May 23, 2018 10:26
--- NOTE | 2018-05-23 11:00 | NUR ---
NURSE NOTES:Dr. Brambila here seen pt pt informed that pain is unrelieved, Dr. Gaona placed orders to discontinue, COMPETITIVE INTELLIGENCE MANAGER pump. Pt was not ready and stated that " No One wants to listen to me I am hurting" attempted to encourage pt to use Diapid Po. gave change in medications aware of use of Percocet routine. Gave instructions, to change Percocet 10/325 to PRN add Dilaudid 2mg routine, and allow for COMPETITIVE INTELLIGENCE MANAGER pump to remain until the morning. Dr Lombardi also recommended PT for home. PT verbalized understanding. stated he will be in tomorrow to remove Amor Stuart.
--- NOTE | 2018-05-23 11:02 | NUR ---
CASE MANAGEMENT:REVIEW 05/23/18 SI: POD #6 AND POD #2 HIDRADENITIS SUPPURATIVE LT AXILLA 98.7 88 19 94/61 96% ON RA IS: IV ZOSYN Q8HRS IV DAPTOMYCIN Q24 IVF@75/HR HEPARIN SQ Q12 DILAUDID : MED/SURG STATUS 3 EAST PLAN: [place] [id number] [place] [id number] FATHER T: [phone] MARIELA T: [phone] SPOKE WITH SENIOR PAYROLL SPECIALIST CYDNEY WHO IS WORKING ON HOME HEALTH
--- NOTE | 2018-05-23 11:23 | GI Progress Note ---
Assessment/Plan Problems: (1) Hidradenitis suppurativa of left axilla ICD Codes: L73.2 - Hidradenitis suppurativa SNOMED: 669397324 (2) Crohns disease ICD Codes: K50.90 - Crohn's disease, unspecified, without complications SNOMED: 96650477 Status: unchanged Status Narrative Discussed with Dr. Terrazas Assessment/Plan Status post surgery, closure of open left axillary wound Follow-up surgical recommendations Remicade pushed for one week per patient primary GI abx per ID pain mgmt Postoperative care The patient was seen and examined at bedside and all new and available data was reviewed in the patients chart. I agree with the above findings, impression and plan. (Patient seen earlier today. Signature stamp does not reflect patient encounter time.). - Moshe Terrazas MD Subjective Subjective Patient still has complaint of severe abdominal pain unrelieved by medications Objective Last 24 Hour Vital Signs Date Time Temp Pulse Resp B/P (MAP) Pulse Ox O2 Delivery O2 Flow Rate FiO2 05/23/18 04:00 18 05/23/18 04:00 98.7 88 19 94/61 (72) 96 05/23/18 00:00 18 05/22/18 23:53 98.9 97 18 98/66 (77) 95 05/22/18 21:00 Room Air 05/22/18 20:00 19 05/22/18 20:00 98.3 75 19 100/51 (67) 100 05/22/18 16:00 16 05/22/18 16:00 98.1 75 19 90/60 (70) 97 05/22/18 14:03 85 18 98 05/22/18 12:00 18 05/22/18 12:00 97.0 85 18 96/59 (71) Intake and Output 05/22/18 05/23/18 19:00 07:00 Intake Total 885.0 ml 1360 ml Output Total 15 ml 40 ml Balance 870.0 ml 1320 ml Intake Oral 720 ml 480 ml IV Total 165.0 ml 880 ml Output Drainage Total 15 ml 40 ml # Voids 3 4 # Bowel Movements 1 Laboratory Tests Test 05/23/18 05:15 White Blood Count 8.5 K/UL (4.8-10.8) Red Blood Count 3.82 M/UL (4.20-5.40) L Hemoglobin 10.9 G/DL (12.0-16.0) L Hematocrit 33.7 % (37.0-47.0) L Mean Corpuscular Volume 88 FL (80-99) Mean Corpuscular Hemoglobin 28.5 PG (27.0-31.0) Mean Corpuscular Hemoglobin Concent 32.3 G/DL (32.0-36.0) Red Cell Distribution Width 12.6 % (11.6-14.8) Platelet Count 248 K/UL (150-450) Mean Platelet Volume 5.6 FL (6.5-10.1) L Neutrophils (%) (Auto) 55.9 % (45.0-75.0) Lymphocytes (%) (Auto) 33.1 % (20.0-45.0) Monocytes (%) (Auto) 7.9 % (1.0-10.0) Eosinophils (%) (Auto) 2.3 % (0.0-3.0) Basophils (%) (Auto) 0.8 % (0.0-2.0) Sodium Level 139 MMOL/L (136-145) Potassium Level 4.0 MMOL/L (3.5-5.1) Chloride Level 103 MMOL/L (98-107) Carbon Dioxide Level 28 MMOL/L (21-32) Anion Gap 8 mmol/L (5-15) Blood Urea Nitrogen 13 mg/dL (7-18) Creatinine 0.8 MG/DL (0.55-1.30) Estimat Glomerular Filtration Rate > 60 mL/min (>60) Glucose Level 107 MG/DL (74-106) H Calcium Level 9.2 MG/DL (8.5-10.1) Height (Feet): 5 Height (Inches): 5.00 Weight (Pounds): 170 General Appearance: WD/WN, no apparent distress, alert Cardiovascular: normal rate Respiratory/Chest: normal breath sounds, no respiratory distress Abdominal Exam: normal bowel sounds, non tender, soft Extremities: normal range of motion, non-tender Joy Malone NP May 23, 2018 11:23
[2018-05-23 12:00] VITALS: BP 101/66
[2018-05-23] MEDS ORDERED: PCA HYDROmorphone 1mg/ml 30 ML IV PRN (12:14)
[2018-05-23] MEDS ORDERED: Rate Change PCA 1 Each MISC PRN (12:30)
--- NOTE | 2018-05-23 14:09 | NUR ---
DISCHARGE PLANNING UPON [place] [address] [address] T: [phone] MARIELA T: [phone] SPOKE WITH NETWORK RELAY TESTER CYDNEY WHO IS WORKING ON HOME HE[facility] FOR [facility] Addendum: 05/23/18 at 1609 by ISMAEL BELTRE LVN LVN PATIENT HAS BEEN REFERRED TO [facility] T: [phone] F: [phone] WAITING TO HEAR IF THEY WILL ACCEPT
--- NOTE | 2018-05-23 14:45 | NUR ---
*-* INSURANCE *-* ALL CLINICALS , REVIEW HAVE BEEN FAXED TO: KAREN HERNANDEZ: LYNETTE Yeung P- [phone] f- [phone] TRACKING NUMBER [id number]
[2018-05-23] MEDS: HYDROmorphone 2mg tab ORAL SCH ×2 (14:47→18:00)
--- NOTE | 2018-05-23 15:15 | NUR ---
NURSE NOTES: Pt currently does not have an iv access. Unable to change iv fluids upon this writing
[2018-05-23 16:00] VITALS: BP 102/60
[2018-05-23] MEDS: DAPTOmycin 300 MG in NS 55 ML IV SCH ×2 (16:00→18:33)
--- NOTE | 2018-05-23 18:10 | NUR ---
NURSE NOTES: Due to safety measures pt encouraged to limit use of DISTRIBUTION ASSOCIATE pump and allow for Dilaudid to reach her system. Educated that PO medications take longer to be effective. Pt sleeping soundly blood pressure 98/65 respiration 18. Portable Sawmill Operator did not wake up pt. IV site not show no signs redness or swelling, but when she goes to the restroom and ambulates site to right foot does become tender. Pt refused dinner earlier in shift , pt asleep when dinner came awoke to refuse dinner. dinner left at bedside. Remains on her cycle requires moderate assistance to get out of bed. Current plan of care will be followed. Father shaved pt legs earlier in shift no cuts noted
--- NOTE | 2018-05-23 19:30 | NUR ---
NURSE NOTES: Patient in bed, with complaints of pain, will medicate as ordered. With IV access on the right foot. With dressing on the left axilla, dry and intact. Instructed the use of call light. Call light and needs in reach. Bed in lowest position and lock engaged. Will continue to monitor.
--- NOTE | 2018-05-23 19:35 | NUR ---
HAND-OFF: Report given to Bertha FITZGERALD.
--- NOTE | 2018-05-23 19:45 | NUR ---
NURSE NOTES: Ronald Stone CARBONATION EQUIPMENT OPERATOR discontinued at 0800 tomorrow.
[2018-05-23 20:00] VITALS: BP 101/61
--- NOTE | 2018-05-23 23:24 | Infectious Diseases Prog Note ---
Assessment/Plan Assessment/Plan ASSESSMENT AND PLAN: 1. left axilla infected wound/infected hidradenitis suppurativa, pseudomonas uti , ? viral syndrome, sinusitis, pharyngitis, fevers, leukocytosis, ? sepsis, s/p left axilla hidradenitis excision and flap elevation - daptomycin, zosyn - day # 6 abx (day # 2 post most recent surgery) - s/p wound/flap closure - fever curve improved - monitor labs - consider po abx soon if continues to improve - levofloxacin plus bactrim x one week 2. hx anxiety 3. Crohn disease. She is on Remicade - GI f/u 4. History of hidradenitis suppurativa, multiple surgeries. 5. Allergies to azithromycin, bisacodyl, docusate, iodine contrast, latex, tape, and vancomycin. 6. Social history is negative. 7. Family history is noncontributory. 8. MAR was noted. 9. Case was discussed with RN. 10. Continue treatment per primary consultants. 11. Case was discussed with the patient 12. Case was discussed with Dr. Celeste Schuster, primary care. Subjective Constitutional: Denies: fever HEENT: Denies: congestion Respiratory: Denies: shortness of breath Cardiovascular: Denies: chest pain Gastrointestinal/Abdominal: Denies: nausea, vomiting, diarrhea Genitourinary: Reports: other - no santana ; Denies: dysuria, hematuria Neurologic: Denies: headache Psychiatric: Denies: depression Skin: Denies: rash Musculoskeletal: Reports: pain, other - + pain per patient Allergies: Coded Allergies: AZATHIOPRINE (Verified Allergy, Unknown, 05/15/18) DOCUSATE (Verified Allergy, Unknown, 05/15/18) ok for oral LATEX (Verified Allergy, Unknown, 05/15/18) VANCOMYCIN (Verified Allergy, Unknown, 05/15/18) BISACODYL (Verified Adverse Reaction, Severe, Rash, 05/15/18) Uncoded Allergies: IODINE CONTRAST (Allergy, Unknown, 05/15/18) TAPE (Allergy, Unknown, 05/15/18) Objective Vital Signs Last 24 Hour Vital Signs Date Time Temp Pulse Resp B/P (MAP) Pulse Ox O2 Delivery O2 Flow Rate FiO2 05/23/18 20:00 17 05/23/18 16:00 16 05/23/18 16:00 98.3 87 18 102/60 (74) 95 05/23/18 12:00 20 05/23/18 12:00 98.1 79 17 101/66 (78) 95 05/23/18 09:00 Room Air 05/23/18 08:00 18 05/23/18 08:00 98.2 90 18 107/75 (86) 94 05/23/18 04:00 18 05/23/18 04:00 98.7 88 19 94/61 (72) 96 05/23/18 00:00 18 05/22/18 23:53 98.9 97 18 98/66 (77) 95 Height (Feet): 5 Height (Inches): 5.00 Weight (Pounds): 170 General Appearance: no acute distress HEENT: normocephalic, atraumatic, anicteric, mucous membranes moist Respiratory/Chest: lungs clear, normal breath sounds, no respiratory distress, no accessory muscle use Cardiovascular: normal rate, regular rhythm, no gallop/murmur, no JVD Abdomen: normal bowel sounds, soft, non tender, no organomegaly, non distended Genitourinary: other - no santana Extremities: no cyanosis Skin: no rash, other - axilla wound covered 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, alert, responsive Lymphatic: no neck adenopathy Musculoskeletal: no effusion Objective Chest x-ray - left atx, report noted Microbiology Date/Time Source Procedure Growth Status 05/18/18 12:15 Blood Blood Culture - Preliminary NO GROWTH AFTER 4 DAYS Resulted 05/18/18 13:40 Urine,Clean Catch Urine Culture - Final Pseudomonas Aeruginosa Complete Laboratory Tests Test 05/23/18 05:15 White Blood Count 8.5 K/UL (4.8-10.8) Red Blood Count 3.82 M/UL (4.20-5.40) L Hemoglobin 10.9 G/DL (12.0-16.0) L Hematocrit 33.7 % (37.0-47.0) L Mean Corpuscular Volume 88 FL (80-99) Mean Corpuscular Hemoglobin 28.5 PG (27.0-31.0) Mean Corpuscular Hemoglobin Concent 32.3 G/DL (32.0-36.0) Red Cell Distribution Width 12.6 % (11.6-14.8) Platelet Count 248 K/UL (150-450) Mean Platelet Volume 5.6 FL (6.5-10.1) L Neutrophils (%) (Auto) 55.9 % (45.0-75.0) Lymphocytes (%) (Auto) 33.1 % (20.0-45.0) Monocytes (%) (Auto) 7.9 % (1.0-10.0) Eosinophils (%) (Auto) 2.3 % (0.0-3.0) Basophils (%) (Auto) 0.8 % (0.0-2.0) Sodium Level 139 MMOL/L (136-145) Potassium Level 4.0 MMOL/L (3.5-5.1) Chloride Level 103 MMOL/L (98-107) Carbon Dioxide Level 28 MMOL/L (21-32) Anion Gap 8 mmol/L (5-15) Blood Urea Nitrogen 13 mg/dL (7-18) Creatinine 0.8 MG/DL (0.55-1.30) Estimat Glomerular Filtration Rate > 60 mL/min (>60) Glucose Level 107 MG/DL (74-106) H Calcium Level 9.2 MG/DL (8.5-10.1) Current Medications Medications (Trade) Dose Ordered Sig/Alix Route PRN Reason Start Time Stop Time Status Last Admin Dose Admin Acetaminophen (Tylenol) 650 mg Q4H PRN ORAL FEVER 05/21/18 11:00 06/20/18 10:59 Aripiprazole (Abilify) 2 mg DAILY ORAL 05/16/18 09:00 06/15/18 08:59 05/23/18 10:00 Daptomycin 300 mg/ Sodium Chloride 55 ml @ 100 mls/hr Q24H IV 05/18/18 16:00 05/25/18 15:59 05/23/18 18:33 Dextrose (Dextrose 50%) 25 ml Q30M PRN IV Hypoglycemia 05/15/18 18:15 06/14/18 18:14 Dextrose (Dextrose 50%) 50 ml Q30M PRN IV Hypoglycemia 05/15/18 18:15 06/14/18 18:14 Diphenhydramine HCl (Benadryl) 25 mg Q6H PRN ORAL Itching/Pruritis 05/15/18 18:15 06/14/18 18:14 05/22/18 02:52 Gabapentin (Neurontin) 300 mg THREE TIMES A DAY ORAL 05/22/18 09:00 06/16/18 09:29 05/23/18 17:00 Heparin Sodium (Porcine) (Heparin 5000 units/ml) 5,000 units EVERY 8 HOURS SUBQ 05/21/18 14:00 06/20/18 13:59 05/23/18 21:43 Hydromorphone HCl 30 ml @ 0 mls/hr GREEN PROMOTIONS SPECIALIST protocol PRN IV For Pain 05/23/18 12:14 05/24/18 12:13 Hydromorphone HCl (Dilaudid) 2 mg EVERY 6 HOURS ORAL 05/23/18 12:00 05/30/18 11:59 05/23/18 14:47 Hydromorphone HCl (Dilaudid) 2 mg Q3H PRN SUBQ Severe Pain (Pain Scale 7-10) 05/23/18 12:30 05/25/18 12:29 Hydromorphone HCl (Dilaudid) 2 mg Q4H PRN IVP Moderate Pain (Pain Scale 4-6) 05/23/18 12:30 05/25/18 12:29 05/23/18 20:02 Lactobacillus Acidophilus (Culturelle) 1 tab TWICE A DAY ORAL 05/17/18 18:00 06/16/18 17:59 05/23/18 17:00 Magnesium Hydroxide (Mom) 30 ml HSPRN PRN ORAL Constipation 05/15/18 18:15 06/14/18 18:14 Miscellaneous Medication (GREEN PROMOTIONS SPECIALIST Rate Change) 1 ea DAILY PRN MISC GREEN PROMOTIONS SPECIALIST RATE CHANGE 05/23/18 12:30 05/25/18 12:29 Miscellaneous Medication (GREEN PROMOTIONS SPECIALIST shift volume) 1 ea Q12HR@0700,1900 MISC 05/23/18 19:00 05/25/18 18:59 05/23/18 19:00 Naloxone HCl (Narcan) 0.2 mg Q30M PRN IVP respiratory distress 05/22/18 09:00 06/21/18 08:59 Nystatin (Nystatin Cr) 1 applic DAILY TOPIC 05/19/18 09:00 06/18/18 08:59 05/20/18 08:48 Ondansetron HCl (Zofran) 4 mg Q6H PRN IVP Nausea & Vomiting 05/21/18 11:00 06/20/18 10:59 05/23/18 17:05 Oxycodone/ Acetaminophen (Percocet 10) 1 tab Q6H PRN ORAL Severe Breakthru Pain (>7) 05/23/18 12:00 05/25/18 09:14 Piperacillin Sod/ Tazobactam Sod 3.375 gm/Sodium Chloride 110 ml @ 27.5 mls/hr EVERY 8 HOURS IVPB 05/18/18 14:00 05/28/18 13:59 05/23/18 17:11 Polyethylene Glycol (Miralax) 17 gm HSPRN PRN ORAL Constipation 05/15/18 18:15 06/14/18 18:14 05/19/18 21:30 Sodium Chloride 1,000 ml @ 75 mls/hr [id number] IV 05/15/18 19:15 06/14/18 19:14 05/23/18 00:28 Zolpidem Tartrate (Ambien) 5 mg DAILYPRN PRN ORAL Insomnia 05/21/18 11:00 05/28/18 10:59 Niya Holley MD May 23, 2018 23:24
[2018-05-24] VITALS: BP 111/61
[2018-05-24] MEDS: HYDROmorphone 2mg tab ORAL SCH ×4 (00:55→18:16)
[2018-05-24] MEDS: Piperacillin/Tazobactam 3.375 GM in NS 110 ML IVPB SCH ×3 (00:55→15:45)
--- NOTE | 2018-05-24 00:55 | NUR ---
NURSE NOTES: Scanned Zosyn and Dilaudid tab properly and saved but it turned out not.
[2018-05-24 04:00] VITALS: BP 123/78
[2018-05-24] MEDS: Heparin 5000 units/ml inj SUBQ SCH ×2 (06:56→14:17)
[2018-05-24 06:57] LABS: ANION GAP 7 mmol/L (5-15); BASOPHILS % (AUTO) 0.8 % (0.0-2.0); BLOOD UREA NITROGEN 14 mg/dL (7-18); CALCIUM 8.9 MG/DL (8.5-10.1); CARBON DIOXIDE 29 MMOL/L (21-32); CHLORIDE 104 MMOL/L (98-107); CREATININE 0.8 MG/DL (0.55-1.30); EOSINOPHILS % (AUTO) 2.8 % (0.0-3.0); HEMATOCRIT 33.2 % (37.0-47.0); HEMOGLOBIN 11.3 G/DL (12.0-16.0); LYMPHOCYTES % (AUTO) 38.5 % (20.0-45.0); MEAN CORPUSCULAR VOLUME 86 FL (80-99); NEUTROPHILS % (AUTO) 49.9 % (45.0-75.0); PLATELET COUNT 281 K/UL (150-450); POTASSIUM 4.2 MMOL/L (3.5-5.1); RED BLOOD COUNT 3.87 M/UL (4.20-5.40); SODIUM 140 MMOL/L (136-145)
[2018-05-24] MEDS: PCA shift volume MISC SCH ×2 (07:21→19:00)
--- NOTE | 2018-05-24 07:40 | NUR ---
HAND-OFF: Report given to LIA Moreira.
--- NOTE | 2018-05-24 07:45 | NUR ---
NURSE NOTES: Report received from outgoing nurse, rounds made. Patient alert, oriented x4, calm. No SOB on RA or NV. Pain level 8/10, will medicate as ordered, patient not using ALEMITE OPERATOR, will DC this AM as ordered. RFA IVF infusing, site asymptomatic. Left lateral axillary dressing CDI. VANESSA patent, dark brown output. Vitals stable, afebrile. Father at bedside. Call light in reach, bed in lowest position. Will continue to monitor.
[2018-05-24 08:00] VITALS: BP 99/60
--- NOTE | 2018-05-24 09:20 | NUR ---
NURSE NOTES: Called pharmacy to confirm it's okay to give Dilaudid IV, while patient on scheduled dosed PO Dilaudid, okay to administer, see eMAR.
[2018-05-24] MEDS: ARIPiprazole 2mg tab ORAL SCH (09:27)
[2018-05-24] MEDS: Lactobacillus-GG tablet ORAL SCH ×2 (09:27→18:15)
--- NOTE | 2018-05-24 09:45 | NUR ---
NURSE NOTES: Left lateral axillary surgical dressing removed, left YAA for MD to assess, as ordered. Sutures noted, no bruising, redness, swelling or drainage noted. VANESSA remains intact. Medicated with Dilaudid 2 mg IV prior to dressing removal. Will continue to monitor.
--- NOTE | 2018-05-24 11:09 | GI Progress Note ---
Assessment/Plan Problems: (1) Hidradenitis suppurativa of left axilla ICD Codes: L73.2 - Hidradenitis suppurativa SNOMED: 238341747 (2) Crohns disease ICD Codes: K50.90 - Crohn's disease, unspecified, without complications SNOMED: 67504663 Status: progressing Status Narrative Discussed with Dr. Terrazas Assessment/Plan Status post surgery, closure of open left axillary wound Follow-up surgical recommendations Remicade pushed for one week per patient primary GI abx per ID pain mgmt Postoperative care DC planning when pain controlled The patient was seen and examined at bedside and all new and available data was reviewed in the patients chart. I agree with the above findings, impression and plan. (Patient seen earlier today. Signature stamp does not reflect patient encounter time.). - Moshe Terrazas MD Subjective Subjective Abdominal pain improved Objective Last 24 Hour Vital Signs Date Time Temp Pulse Resp B/P (MAP) Pulse Ox O2 Delivery O2 Flow Rate FiO2 05/24/18 04:00 97.7 77 18 123/78 (93) 95 05/24/18 04:00 20 05/24/18 00:00 98.2 84 18 111/61 (78) 95 05/24/18 00:00 18 05/23/18 21:00 Room Air 05/23/18 20:00 17 05/23/18 20:00 98.4 88 18 101/61 (74) 98 05/23/18 16:00 16 05/23/18 16:00 98.3 87 18 102/60 (74) 95 05/23/18 12:00 20 05/23/18 12:00 98.1 79 17 101/66 (78) 95 Intake and Output 05/23/18 05/24/18 19:00 07:00 Intake Total 1055.0 ml 370.0 ml Output Total 95 ml Balance 1055.0 ml 275.0 ml Intake Oral 1000 ml IV Total 55.0 ml 370.0 ml Output Drainage Total 95 ml # Voids 6 Laboratory Tests Test 05/24/18 06:00 White Blood Count 8.0 K/UL (4.8-10.8) Red Blood Count 3.87 M/UL (4.20-5.40) L Hemoglobin 11.3 G/DL (12.0-16.0) L Hematocrit 33.2 % (37.0-47.0) L Mean Corpuscular Volume 86 FL (80-99) Mean Corpuscular Hemoglobin 29.1 PG (27.0-31.0) Mean Corpuscular Hemoglobin Concent 33.9 G/DL (32.0-36.0) Red Cell Distribution Width 12.0 % (11.6-14.8) Platelet Count 281 K/UL (150-450) Mean Platelet Volume 5.8 FL (6.5-10.1) L Neutrophils (%) (Auto) 49.9 % (45.0-75.0) Lymphocytes (%) (Auto) 38.5 % (20.0-45.0) Monocytes (%) (Auto) 8.0 % (1.0-10.0) Eosinophils (%) (Auto) 2.8 % (0.0-3.0) Basophils (%) (Auto) 0.8 % (0.0-2.0) Sodium Level 140 MMOL/L (136-145) Potassium Level 4.2 MMOL/L (3.5-5.1) Chloride Level 104 MMOL/L (98-107) Carbon Dioxide Level 29 MMOL/L (21-32) Anion Gap 7 mmol/L (5-15) Blood Urea Nitrogen 14 mg/dL (7-18) Creatinine 0.8 MG/DL (0.55-1.30) Estimat Glomerular Filtration Rate > 60 mL/min (>60) Glucose Level 116 MG/DL (74-106) H Calcium Level 8.9 MG/DL (8.5-10.1) Height (Feet): 5 Height (Inches): 5.00 Weight (Pounds): 170 General Appearance: WD/WN, no apparent distress, alert Cardiovascular: normal rate Respiratory/Chest: normal breath sounds, no respiratory distress Abdominal Exam: normal bowel sounds, non tender, soft, incision site Extremities: normal range of motion, non-tender Joy Malone NP May 24, 2018 11:09
--- NOTE | 2018-05-24 11:17 | NUR ---
*-* INSURANCE *-* UPDATED CLINICALS HAVE BEEN FAXED TO: KAREN HERNANDEZ: LYNETTE Yeung P- [phone] f- [phone] TRACKING NUMBER [id number]
--- NOTE | 2018-05-24 11:33 | Discharge Summary ---
Discharge Summary Hospital Course Date of Admission May 15, 2018 at 15:36 Date of Discharge 05/24/18 Admitting Diagnosis HIDRADENITIS Sepsis Pseudomonas UTI HPI Kenzie Caruso is a 22 year old female who was admitted on May 15, 2018 at 15:36 for Hidradenitis Hospital Course 22 year old female with PMH of Crohns disease on Remicade (Next dose 05/21/18), anxiety and hidradenitis suppurativa who presented with pain in L axillary region with open wound and drainage. She was treated with IV antibiotics, narcotic pain meds per Pain Management team. She was seen by Dr. Brambila and underwent excision and wound closure. Patient was noted to be febrile and was seen by ID, treated with broad spectrum IV antibiotics. Urine culture did grow Pseudomonas. 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 Cleared for discharge by surgery, she will go home with visiting nurse services for dressing changes. She will be discharged on oral Dilaudid, + Percocet for breakthrough pain, Levaquin and Bactrim for 7 more days. Will follow up with Dr. Brambila as outpatient. #Hidradenitis suppurativa on L axilla s/p surgery at OSH with open wound #Possible wound infection/abscess s/p Excision of the left axillary hidradenitis tissue and Elevation of a fasciocutaneous left lateral chest wall flap #Sepsis due to suspected soft tissue infection #Pseudomonas UTI - transitioned to oral Dilaudid for discharge - Encourage mobilization/ambulation - Encourage incentive spirometry to optimize pulmonary hygiene - Outpatient Surgical followup #Crohns disease -on Remicade - follow up with GI as outpatient for next infusion #Anxiety - c/w home meds #Hypokalemia, resolved Time spent in preparing discharge was 35 minutes which included coordination of care with nursing, case management and consultants. Discharge Discharge Disposition Patient was discharged to Home Discharge Diagnoses: (1) Sepsis (2) Hidradenitis suppurativa of left axilla Markie Ortega MD May 24, 2018 11:33
[2018-05-24 12:00] VITALS: BP 107/71
--- NOTE | 2018-05-24 14:27 | NUR ---
DISCHARGE UPDATE MULTIPLE CALLS HAVE BEEN MADE TO [facility] WHICH STARTED AT 0900 THIS MORNING 0900 ~ THEY STATED THEY ONLY RECEIVED PART OF THE FAX. INFORMATION REFAXED 1000 ~CONFIRMED WITH KERLINE THAT FAX WAS RECEIVED. SHE SAID THEY NEEDED TO REVIEW PAPERWORK 1200 ~ CALLED AND SPOKE WITH [facility]. PER TORY THEY WILL ACCEPT THE PATIENT THEY JUST NEEDED TO OBTAIN AUTHORIZATION FROM INSURANCE. PROVIDED [facility] WITH DIRECT PHONE NUMBER TO PLANETARIUM TECHNICIAN AT [facility] FOR AUTHORIZATION 1400~ CALLED AND SPOKE WITH DI. PER DI, THEY RECEIVED AUTHORIZATION BUT NOW THEY ARE JUST WAITING FOR THEIR NURSES TO REVIEW EVERYTHING. DI SAID THEY WOULD CALL BACK BEFORE 5PM TODAY [facility] T: [phone] F: [phone] WE NEED TO WAIT FOR OK FROM [facility] BEFORE PATIENT IS DISCHARGED UPON DISCHARGE PLEASE PROVIDE PATIENT WILL SEVERAL DAYS OF SUPPLIES FOR DRESSING CHANGE Addendum: 05/24/18 at 1540 by ISMAEL BELTRE LVN LVN UPDATED PATIENT'S FATHER REGARDING ALL OF THE ABOVE Addendum: 05/24/18 at 1632 by ISMAEL BELTRE LVN LVN [facility] [employer] IS GOING TO CALL OUR DIRECTOR OF CASE MGMT BACK REGARDING START OF SERVICE
--- NOTE | 2018-05-24 14:29 | NUR ---
P.T Note: P.T evaluation completed s/p L axillary surgery for debridement and flap closure. Instructed patient on strategic compensatory tech for bed mobility , pt displayed good return demonstration. Educated patient importance of OOB activities follow surgery. Pt verbalized good understanding. Pt. currently functioning independently within surgical guidelines . Skilled P.T service no needed at this time. DC P.T service. Addendum: 05/24/18 at 1430 by RAFI LOPEZ PT Amended: Links added.
--- NOTE | 2018-05-24 15:39 | Infectious Diseases Prog Note ---
Assessment/Plan Assessment/Plan ASSESSMENT AND PLAN: 1. left axilla infected wound/infected hidradenitis suppurativa, pseudomonas uti , ? viral syndrome, sinusitis, pharyngitis, fevers, leukocytosis, ? sepsis, s/p left axilla hidradenitis excision and flap elevation - daptomycin, zosyn - day # 7 abx (day # 3 post most recent surgery) - s/p wound/flap closure - fever curve improved - monitor labs - can discharge on po abx - levofloxacin plus bactrim x one week - communicated with Dr. Rosado 2. hx anxiety 3. Crohn disease. She is on Remicade - GI f/u 4. History of hidradenitis suppurativa, multiple surgeries. 5. Allergies to azithromycin, bisacodyl, docusate, iodine contrast, latex, tape, and vancomycin. 6. Social history is negative. 7. Family history is noncontributory. 8. MAR was noted. 9. Case was discussed with RN. 10. Continue treatment per primary consultants. 11. Case was discussed with the patient 12. Case was discussed with Dr. Celeste Schuster, primary care. Subjective Constitutional: Denies: fever HEENT: Denies: congestion Respiratory: Denies: shortness of breath Cardiovascular: Denies: chest pain Gastrointestinal/Abdominal: Denies: nausea, vomiting, diarrhea Genitourinary: Reports: other - no santana Neurologic: Denies: headache Psychiatric: Denies: depression Skin: Denies: rash Hematologic: Denies: bleeding Musculoskeletal: Reports: pain - less Allergies: Coded Allergies: AZATHIOPRINE (Verified Allergy, Unknown, 05/15/18) DOCUSATE (Verified Allergy, Unknown, 05/15/18) ok for oral LATEX (Verified Allergy, Unknown, 05/15/18) VANCOMYCIN (Verified Allergy, Unknown, 05/15/18) BISACODYL (Verified Adverse Reaction, Severe, Rash, 05/15/18) Uncoded Allergies: IODINE CONTRAST (Allergy, Unknown, 05/15/18) TAPE (Allergy, Unknown, 05/15/18) Objective Vital Signs Last 24 Hour Vital Signs Date Time Temp Pulse Resp B/P (MAP) Pulse Ox O2 Delivery O2 Flow Rate FiO2 05/24/18 12:00 98.2 84 18 107/71 (83) 97 05/24/18 08:00 20 05/24/18 08:00 97.9 80 18 99/60 (73) 97 05/24/18 04:00 97.7 77 18 123/78 (93) 95 05/24/18 04:00 20 05/24/18 00:00 98.2 84 18 111/61 (78) 95 05/24/18 00:00 18 05/23/18 21:00 Room Air 05/23/18 20:00 17 05/23/18 20:00 98.4 88 18 101/61 (74) 98 05/23/18 16:00 16 05/23/18 16:00 98.3 87 18 102/60 (74) 95 Height (Feet): 5 Height (Inches): 5.00 Weight (Pounds): 170 General Appearance: no acute distress HEENT: normocephalic, atraumatic, anicteric, mucous membranes moist Respiratory/Chest: lungs clear, normal breath sounds, no respiratory distress, respiratory distress Cardiovascular: normal rate, regular rhythm, no gallop/murmur, no JVD Abdomen: normal bowel sounds, soft, non tender, no organomegaly, non distended Genitourinary: other - no santana Extremities: no cyanosis, other - left axilla wound clean and dry Skin: no rash Neurologic/Psychiatric: training program manager II-XII grossly normal, alert, responsive Lymphatic: no neck adenopathy Musculoskeletal: no effusion Objective Chest x-ray - left atx, report noted Microbiology Date/Time Source Procedure Growth Status 05/18/18 12:15 Blood Blood Culture - Final NO GROWTH AFTER 5 DAYS Complete 05/18/18 13:40 Urine,Clean Catch Urine Culture - Final Pseudomonas Aeruginosa Complete Laboratory Tests Test 05/24/18 06:00 White Blood Count 8.0 K/UL (4.8-10.8) Red Blood Count 3.87 M/UL (4.20-5.40) L Hemoglobin 11.3 G/DL (12.0-16.0) L Hematocrit 33.2 % (37.0-47.0) L Mean Corpuscular Volume 86 FL (80-99) Mean Corpuscular Hemoglobin 29.1 PG (27.0-31.0) Mean Corpuscular Hemoglobin Concent 33.9 G/DL (32.0-36.0) Red Cell Distribution Width 12.0 % (11.6-14.8) Platelet Count 281 K/UL (150-450) Mean Platelet Volume 5.8 FL (6.5-10.1) L Neutrophils (%) (Auto) 49.9 % (45.0-75.0) Lymphocytes (%) (Auto) 38.5 % (20.0-45.0) Monocytes (%) (Auto) 8.0 % (1.0-10.0) Eosinophils (%) (Auto) 2.8 % (0.0-3.0) Basophils (%) (Auto) 0.8 % (0.0-2.0) Sodium Level 140 MMOL/L (136-145) Potassium Level 4.2 MMOL/L (3.5-5.1) Chloride Level 104 MMOL/L (98-107) Carbon Dioxide Level 29 MMOL/L (21-32) Anion Gap 7 mmol/L (5-15) Blood Urea Nitrogen 14 mg/dL (7-18) Creatinine 0.8 MG/DL (0.55-1.30) Estimat Glomerular Filtration Rate > 60 mL/min (>60) Glucose Level 116 MG/DL (74-106) H Calcium Level 8.9 MG/DL (8.5-10.1) Current Medications Medications (Trade) Dose Ordered Sig/Alix Route PRN Reason Start Time Stop Time Status Last Admin Dose Admin Acetaminophen (Tylenol) 650 mg Q4H PRN ORAL FEVER 05/21/18 11:00 06/20/18 10:59 Aripiprazole (Abilify) 2 mg DAILY ORAL 05/16/18 09:00 06/15/18 08:59 05/24/18 09:27 Daptomycin 300 mg/ Sodium Chloride 55 ml @ 100 mls/hr Q24H IV 05/24/18 16:00 05/31/18 15:59 Dextrose (Dextrose 50%) 25 ml Q30M PRN IV Hypoglycemia 05/15/18 18:15 06/14/18 18:14 Dextrose (Dextrose 50%) 50 ml Q30M PRN IV Hypoglycemia 05/15/18 18:15 06/14/18 18:14 Diphenhydramine HCl (Benadryl) 25 mg Q6H PRN ORAL Itching/Pruritis 05/15/18 18:15 06/14/18 18:14 05/22/18 02:52 Gabapentin (Neurontin) 300 mg THREE TIMES A DAY ORAL 05/22/18 09:00 06/16/18 09:29 05/24/18 12:47 Heparin Sodium (Porcine) (Heparin 5000 units/ml) 5,000 units EVERY 8 HOURS SUBQ 05/21/18 14:00 06/20/18 13:59 05/24/18 14:17 Hydromorphone HCl (Dilaudid) 2 mg EVERY 6 HOURS ORAL 05/23/18 12:00 05/30/18 11:59 05/24/18 12:47 Hydromorphone HCl (Dilaudid) 2 mg Q3H PRN SUBQ Severe Pain (Pain Scale 7-10) 05/23/18 12:30 05/25/18 12:29 Hydromorphone HCl (Dilaudid) 2 mg Q4H PRN IVP Moderate Pain (Pain Scale 4-6) 05/23/18 12:30 05/25/18 12:29 05/24/18 09:27 Lactobacillus Acidophilus (Culturelle) 1 tab TWICE A DAY ORAL 05/17/18 18:00 06/16/18 17:59 05/24/18 09:27 Magnesium Hydroxide (Mom) 30 ml HSPRN PRN ORAL Constipation 05/15/18 18:15 06/14/18 18:14 Miscellaneous Medication (BODY ARTIST Rate Change) 1 ea DAILY PRN MISC BODY ARTIST RATE CHANGE 05/23/18 12:30 05/25/18 12:29 Miscellaneous Medication (BODY ARTIST shift volume) 1 ea Q12HR@0700,1900 MISC 05/23/18 19:00 05/25/18 18:59 05/24/18 07:21 Naloxone HCl (Narcan) 0.2 mg Q30M PRN IVP respiratory distress 05/22/18 09:00 06/21/18 08:59 Nystatin (Nystatin Cr) 1 applic DAILY TOPIC 05/19/18 09:00 06/18/18 08:59 05/24/18 09:00 Ondansetron HCl (Zofran) 4 mg Q6H PRN IVP Nausea & Vomiting 05/21/18 11:00 06/20/18 10:59 05/23/18 17:05 Oxycodone/ Acetaminophen (Percocet 10/325) 1 tab Q6H PRN ORAL Severe Breakthru Pain (>7) 05/23/18 12:00 05/25/18 09:14 Piperacillin Sod/ Tazobactam Sod 3.375 gm/Sodium Chloride 110 ml @ 27.5 mls/hr EVERY 8 HOURS IVPB 05/18/18 14:00 05/28/18 13:59 05/24/18 06:51 Polyethylene Glycol (Miralax) 17 gm HSPRN PRN ORAL Constipation 05/15/18 18:15 06/14/18 18:14 05/19/18 21:30 Sodium Chloride 1,000 ml @ 75 mls/hr [id number] IV 05/15/18 19:15 06/14/18 19:14 05/24/18 03:33 Zolpidem Tartrate (Ambien) 5 mg DAILYPRN PRN ORAL Insomnia 05/21/18 11:00 05/28/18 10:59 Niya Holley MD May 24, 2018 15:39
[2018-05-24 16:00] VITALS: BP 121/69
[2018-05-24] MEDS ORDERED: DAPTOmycin 300 MG in NS 55 ML IV SCH (16:00)
--- NOTE | 2018-05-24 16:00 | NUR ---
NURSE NOTES: Called pharmacy to confirm Zosyn and Cubicin are compatible. Okay to administer at the same time, antibiotics are compatible.
--- NOTE | 2018-05-24 16:43 | NUR ---
CAREER TECHNICAL SUPERVISOR NOTES RECEIVED A CALL FROM DI FROM [facility], PT ACCEPTED. HH WILL CALL PATIENT IN AM TO SCHEDULE VISIT.
--- NOTE | 2018-05-24 17:08 | General Progress Note ---
Assessment/Plan Assessment/Plan (1) Left Axilla pain (2) Left axillary open wound with infected hidradenitis (3) S/p Excision and elevation of left chest wall flap (4) S/p adjacent tissue transfer closure of left axillary wound with transposition of lateral chest wall flap into the left axillary We will continue Neurontin, Percocet and Dilaudid Was advised to f/u with PMD and surgeon when discharged. D/w Dr. Long and he concurred. Subjective Date patient seen: May 24, 2018 Time patient seen: 04:30 - am Constitutional: Reports: no symptoms HEENT: Reports: no symptoms Cardiovascular: Reports: no symptoms Respiratory: Reports: no symptoms Gastrointestinal/Abdominal: Reports: no symptoms Genitourinary: Reports: no symptoms Neurologic/Psychiatric: Reports: no symptoms Endocrine: Reports: no symptoms Hematologic/Lymphatic: Reports: no symptoms Allergies: Coded Allergies: AZATHIOPRINE (Verified Allergy, Unknown, 05/15/18) DOCUSATE (Verified Allergy, Unknown, 05/15/18) ok for oral LATEX (Verified Allergy, Unknown, 05/15/18) VANCOMYCIN (Verified Allergy, Unknown, 05/15/18) BISACODYL (Verified Adverse Reaction, Severe, Rash, 05/15/18) Uncoded Allergies: IODINE CONTRAST (Allergy, Unknown, 05/15/18) TAPE (Allergy, Unknown, 05/15/18) Subjective Patient is in bed with father at bed side. Has been cleared for discharge as per surgeon. She continues to c/o pain which has been stable on the Dilaudid and Percocet. Surgeon at restarted the GLASSWARE MAKER DEMONSTRATOR order set as well as changed the Percocet to as needed and started the patient on Dilaudid 2mg Po Q6H PRN. He also wrote RX for discharge. Objective Last 24 Hour Vital Signs Date Time Temp Pulse Resp B/P (MAP) Pulse Ox O2 Delivery O2 Flow Rate FiO2 05/24/18 12:00 98.2 84 18 107/71 (83) 97 05/24/18 08:00 20 05/24/18 08:00 97.9 80 18 99/60 (73) 97 05/24/18 04:00 97.7 77 18 123/78 (93) 95 05/24/18 04:00 20 05/24/18 00:00 98.2 84 18 111/61 (78) 95 4/4/19 00:00 18 05/23/18 21:00 Room Air 05/23/18 20:00 17 05/23/18 20:00 98.4 88 18 101/61 (74) 98 Intake and Output 05/23/18 05/24/18 19:00 07:00 Intake Total 1055.0 ml 370.0 ml Output Total 95 ml Balance 1055.0 ml 275.0 ml Intake Oral 1000 ml IV Total 55.0 ml 370.0 ml Output Drainage Total 95 ml # Voids 6 Laboratory Tests 05/24/18 06:00: White Blood Count 8.0, Red Blood Count 3.87L, Hemoglobin 11.3L, Hematocrit 33.2L , Mean Corpuscular Volume 86, Mean Corpuscular Hemoglobin 29.1, Mean Corpuscular Hemoglobin Concent 33.9, Red Cell Distribution Width 12.0, Platelet Count 281, Mean Platelet Volume 5.8L, Neutrophils (%) (Auto) 49.9, Lymphocytes ( %) (Auto) 38.5, Monocytes (%) (Auto) 8.0, Eosinophils (%) (Auto) 2.8, Basophils (%) (Auto) 0.8, Sodium Level 140, Potassium Level 4.2, Chloride Level 104, Carbon Dioxide Level 29, Anion Gap 7, Blood Urea Nitrogen 14, Creatinine 0.8, Estimat Glomerular Filtration Rate > 60, Glucose Level 116H, Calcium Level 8.9 Height (Feet): 5 Height (Inches): 5.00 Weight (Pounds): 170 Objective General Appearance: no apparent distress, alert EENT: PERRL/EOMI, normal ENT inspection Neck: non-tender, normal alignment Cardiovascular: normal rate, regular rhythm Respiratory/Chest: lungs clear, normal breath sounds Abdomen: non tender, soft Extremities: other - left axilla bandages noted Edema: no edema noted Arm (L), no edema noted Arm (R), no edema noted Leg (L), no edema noted Leg (R), no edema noted Pedal (L), no edema noted Pedal (R), no edema noted Generalized Neurologic: alert, oriented x 3 Skin: warm/dry Hao Aldana May 24, 2018 17:08
[2018-05-24] MEDS ORDERED: ABILIFY2 MG ORAL (18:24)
[2018-05-24] MEDS ORDERED: PERCOCET 5-3251 EACH ORAL ×2 (18:25→18:27)
[2018-05-24] MEDS ORDERED: BACTRIM DS TAB1 EAC1 ORAL (18:26)
[2018-05-24] MEDS ORDERED: LEVAQUIN750 MG ORAL (18:27)
[2018-05-24] MEDS ORDERED: DILAUDID 22 MG/1 M2 PO (18:29)
--- NOTE | 2018-05-24 19:10 | NUR ---
NURSE NOTES: Discharge instructions and prescriptions x2 reviewed with patient/father, verbalized understanding. Original prescriptions sent with father to fill at pharmacy prior to discharge. RFA IV discontinued, no active bleeding. Left lateral axillary dry sterile dressing applied, secured with paper tape. All belongings, prescriptions, patient's home medications (that were held in pharmacy), wound care supplies given to patient. [facility] information provided. Left arm sling in place. VANESSA emptied 15 mls, instructed patient on how to empty and keep log of output. Patient discharged home at 1910, sent down via with RN.
== END 2018-05-24 19:00 | disposition home health service (06) | DRG 854 ==
LOC: EDBEDREQ 15:00 → EMR 15:34 → 3E 15:36 → EDBEDREQ 15:42
PROC: 0JBF0ZZ Excision of Left Upper Arm Subcutaneous Tissue and Fascia, Open Approach (ICD-10-PCS; principal; 2018-05-16 10:30)
PROC: 0H85XZZ Division of Chest Skin, External Approach (ICD-10-PCS; principal; 2018-05-16 10:30)
PROC: 0JXF0ZZ Transfer Left Upper Arm Subcutaneous Tissue and Fascia, Open Approach (ICD-10-PCS; 2018-05-21)
DX: A41.9 Sepsis, unspecified organism (principal); L02.412 Cutaneous abscess of left axilla; K50.90 Crohn's disease, unspecified, without complications; N39.0 Urinary tract infection, site not specified; L73.2 Hidradenitis suppurativa; F41.9 Anxiety disorder, unspecified; Z88.8 Allergy status to other drugs, medicaments and biological substances; Z88.1 Allergy status to other antibiotic agents; Z91.040 Latex allergy status; B96.5 Pseudomonas (aeruginosa) (mallei) (pseudomallei) as the cause of diseases classified elsewhere
CPT/HCPCS: 36415; 71045; 80048; 80053; 81003; 81025; 82550; 83690; 83735; 84100; 85025; 85610; 85651; 85730; 86140; 87040; 87086; 87181; 93005; 93970; 94003; 94150; 96374; 96375; 99285; J2250; J2405; J2710; J8499

== ENCOUNTER 2018-06-12 16:42 | Inpatient (IN) | payer OTHER ==
[~2018-06-12] VITALS: Ht 166.4 cm; Wt 76.4 kg
[~2018-06-12 16:42] MED LIST: ABILIFY2 MG ORAL; BACTRIM DS TAB1 EAC1 ORAL; DILAUDID 22 MG/1 M2 PO; LEVAQUIN750 MG ORAL; PERCOCET 5-3251 EACH ORAL; UNOBMED
--- NOTE | 2018-06-12 17:00 | Emergency Room Report ---
History of Present Illness General Chief Complaint: Wound Recheck/Suture Removal Source: Patient, Medical Record Present Illness HPI 22 YO Female presents to the ED C/O 11/29 in severity pain, erythema, swelling, warmth and tenderness to the left axilla s/p surgery 26 days ago. pt. reports subjective fevers and chills. She reports hx of opiate dependence and Crohn's disease. pt. states she takes immunomodulator (Remicade) once a month. Pt. denies trauma or fall. pt. reports this pain has a new onset x 1 week. Allergies: Coded Allergies: AZATHIOPRINE (Verified Allergy, Unknown, 05/15/18) DOCUSATE (Verified Allergy, Unknown, 05/15/18) ok for oral LATEX (Verified Allergy, Unknown, 05/15/18) VANCOMYCIN (Verified Allergy, Unknown, 05/15/18) BISACODYL (Verified Adverse Reaction, Severe, Rash, 05/15/18) Uncoded Allergies: IODINE CONTRAST (Allergy, Unknown, 05/15/18) TAPE (Allergy, Unknown, 05/15/18) Patient History Past Medical History: see triage record Past Surgical History: none Pertinent Family History: none Last Menstrual Period: 05/15/18 Reviewed Nursing Documentation: PMH: Agreed; PSxH: Agreed Nursing Documentation-PMH Past Medical History: No History, Except For Hx Cardiac Problems: No Hx Cancer: No Hx Gastrointestinal Problems: Yes - Crohn's History Of Psychiatric Problem: Yes - Anxiety, ADD Hx Neurological Problems: No Review of Systems All Other Systems: negative except mentioned in HPI Physical Exam Vital Signs Date Time Temp Pulse Resp B/P (MAP) Pulse Ox O2 Delivery O2 Flow Rate FiO2 06/12/18 16:49 99.0 106 19 116/82 99 Room Air Sp02 EP Interpretation: reviewed, normal General Appearance: alert, GCS 15, non-toxic, moderate distress Head: normocephalic, atraumatic Eyes: bilateral eye normal inspection, bilateral eye PERRL ENT: hearing grossly normal, normal voice Neck: full range of motion Respiratory: lungs clear, normal breath sounds, speaking full sentences, other - TTP to the left upper lateral/axillary portion of the chest with surgical incision noted, mild dehiscence, erythema and mild d/c. Cardiovascular #1: regular rate, rhythm Musculoskeletal: back normal, gait/station normal, normal range of motion, non- tender Neurologic: alert, oriented x3, responsive, motor strength/tone normal, sensory intact, speech normal, grossly normal Psychiatric: judgement/insight normal Skin: warm/dry, well hydrated, other - surgical incision of the left axilla which extends down a portion of the chest as well, mild dehiscence, erythema and mild d/c. Medical Decision Making PA Attestation Dr. Yates is my supervising Physician whom patient management has been discussed with. Diagnostic Impression: Primary Impression: Post op infection Qualified Codes: T81.40XA - Infection following a procedure, unspecified, initial encounter ER Course 22 YO Female presents to the ED C/O 11/29 in severity pain, erythema, swelling, warmth and tenderness to the left axilla s/p surgery 26 days ago. pt. reports subjective fevers and chills. She reports hx of opiate dependence and Crohn's disease. pt. states she takes immunomodulator (Remicade) once a month. Pt. denies trauma or fall. pt. reports this pain has a new onset x 1 week. Ddx considered but are not limited to cellulitis, hydradenitis Suppurativa, fracture, d/L, gout, abscess, post-op infection, sepsis just to name a few. Vital signs: are WNL, pt. is afebrile H&PE are most consistent with post-op infection requiring admission for surgical or IV abx management. --Pt. non-toxic in appearance. ORDERS: -CBC: anemia, no elevation in WBC's - CMP: unremarkable -Urine Hcg: negative -Blood Cultures: pending ED INTERVENTIONS: -6mg Morphine IV DISPOSITION: at this time pt. will be admitted to Dr. Cabrera on behalf of Dr. Whelan for post-operative infection Dr. Cabrera agreed to admit the pt. and to continue pt. care management. Labs Test 06/12/18 16:57 06/12/18 17:30 Urine Color Pale yellow Urine Appearance Clear Urine pH 6 (4.5-8.0) Urine Specific [place] 1.025 (1.005-1.035) Urine Protein 1+ (NEGATIVE) Urine Glucose (UA) Negative (NEGATIVE) Urine Ketones Negative (NEGATIVE) Urine Blood 2+ (NEGATIVE) Urine Nitrite Negative (NEGATIVE) Urine Bilirubin Negative (NEGATIVE) Urine Urobilinogen Normal MG/DL (0.0-1.0) Urine Leukocyte Esterase Negative (NEGATIVE) Urine RBC 0-2 /HPF (0 - 2) Urine WBC 0 /HPF (0 - 2) Urine Squamous Epithelial Cells Few /LPF (NONE/OCC) Urine Bacteria None /HPF (NONE) Urine HCG, Qualitative Negative (NEGATIVE) White Blood Count 9.6 K/UL (4.8-10.8) Red Blood Count 4.07 M/UL (4.20-5.40) Hemoglobin 11.5 G/DL (12.0-16.0) Hematocrit 35.1 % (37.0-47.0) Mean Corpuscular Volume 86 FL (80-99) Mean Corpuscular Hemoglobin 28.3 PG (27.0-31.0) Mean Corpuscular Hemoglobin Concent 32.8 G/DL (32.0-36.0) Red Cell Distribution Width 12.8 % (11.6-14.8) Platelet Count 266 K/UL (150-450) Mean Platelet Volume 5.7 FL (6.5-10.1) Neutrophils (%) (Auto) 47.5 % (45.0-75.0) Lymphocytes (%) (Auto) 40.6 % (20.0-45.0) Monocytes (%) (Auto) 7.7 % (1.0-10.0) Eosinophils (%) (Auto) 3.1 % (0.0-3.0) Basophils (%) (Auto) 1.1 % (0.0-2.0) Sodium Level 136 MMOL/L (136-145) Potassium Level 4.2 MMOL/L (3.5-5.1) Chloride Level 104 MMOL/L (98-107) Carbon Dioxide Level 24 MMOL/L (21-32) Anion Gap 9 mmol/L (5-15) Blood Urea Nitrogen 14 mg/dL (7-18) Creatinine 1.1 MG/DL (0.55-1.30) Estimat Glomerular Filtration Rate > 60 mL/min (>60) Glucose Level 105 MG/DL (74-106) Lactic Acid Level 1.40 mmol/L (0.4-2.0) Calcium Level 8.5 MG/DL (8.5-10.1) Total Bilirubin 0.4 MG/DL (0.2-1.0) Aspartate Amino Transf (AST/SGOT) 12 U/L (15-37) Alanine Aminotransferase (ALT/SGPT) 19 U/L (12-78) Alkaline Phosphatase 54 U/L (46-116) Total Protein 7.0 G/DL (6.4-8.2) Albumin 3.2 G/DL (3.4-5.0) Globulin 3.8 g/dL Albumin/Globulin Ratio 0.8 (1.0-2.7) Last Vital Signs Date Time Temp Pulse Resp B/P (MAP) Pulse Ox O2 Delivery O2 Flow Rate FiO2 06/12/18 16:49 99.0 106 19 116/82 99 Room Air Disposition: ADMITTED INPATIENT Condition: Tiffanie Olivares Jun 12, 2018 17:00
[2018-06-12 17:13] VITALS: BP 114/78
[2018-06-12 17:25] LABS: APPEARANCE,URINE CLEAR; BILIRUBIN, URINE NEGATIVE (NEGATIVE); COLOR,URINE PALE YELLOW; GLUCOSE, URINE (UA) NEGATIVE (NEGATIVE); KETONES,URINE NEGATIVE (NEGATIVE); LEUKOCYTE ESTERASE ,URINE NEGATIVE (NEGATIVE); NITRITE,URINE NEGATIVE (NEGATIVE); PH,URINE 6 (4.5-8.0); PROTEIN,URINE 1+ (NEGATIVE); UROBILINOGEN,URINE NORMAL MG/DL (0.0-1.0)
[2018-06-12] MEDS ORDERED: HYDROmorphone 1mg/ml Carpuject IVP ONE (17:45)
[2018-06-12] MEDS ORDERED: Morphine Sulfate 2mg/ml Inj(IV/IM USE ONLY) IVP ONE (17:45)
[2018-06-12] MEDS ORDERED: Morphine Sulfate 4mg/ml Inj (IV USE ONLY) IVP ONE (17:45)
[2018-06-12] MEDS ORDERED: Morphine Sulfate 4mg/ml Inj (IV USE ONLY) ONE (17:47)
[2018-06-12] MEDS ORDERED: Morphine Sulfate 2mg/ml Inj(IV/IM USE ONLY) ONE (17:47)
[2018-06-12 18:02] LABS: BASOPHILS % (AUTO) 1.1 % (0.0-2.0); EOSINOPHILS % (AUTO) 3.1 % (0.0-3.0); HEMATOCRIT 35.1 % (37.0-47.0); HEMOGLOBIN 11.5 G/DL (12.0-16.0); LYMPHOCYTES % (AUTO) 40.6 % (20.0-45.0); MEAN CORPUSCULAR VOLUME 86 FL (80-99); MONOCYTES % (AUTO) 7.7 % (1.0-10.0); NEUTROPHILS % (AUTO) 47.5 % (45.0-75.0); PLATELET COUNT 266 K/UL (150-450); RED BLOOD COUNT 4.07 M/UL (4.20-5.40); RED CELL DISTRIBUTION WIDTH 12.8 % (11.6-14.8); WHITE BLOOD COUNT 9.6 K/UL (4.8-10.8)
[2018-06-12 18:14] LABS: ANION GAP 9 mmol/L (5-15); BLOOD UREA NITROGEN 14 mg/dL (7-18); CALCIUM 8.5 MG/DL (8.5-10.1); CARBON DIOXIDE 24 MMOL/L (21-32); CHLORIDE 104 MMOL/L (98-107); CREATININE 1.1 MG/DL (0.55-1.30); POTASSIUM 4.2 MMOL/L (3.5-5.1); SODIUM 136 MMOL/L (136-145)
[2018-06-12 18:18] LABS: ALANINE AMINOTRANSFERASE 19 U/L (12-78); ALBUMIN 3.2 G/DL (3.4-5.0); ALBUMIN/GLOBULIN RATIO 0.8 (1.0-2.7); ALKALINE PHOSPHATASE 54 U/L (46-116); ASPARTATE AMINO TRANSFERASE 12 U/L (15-37); BILIRUBIN,TOTAL 0.4 MG/DL (0.2-1.0)
[2018-06-12] MEDS ORDERED: PROZAC20 MG ORAL (18:33)
[2018-06-12 19:05] VITALS: BP 100/62
[2018-06-12] MEDS ORDERED: PRILOSEC OTC20 MG ORAL (20:20)
[2018-06-12] MEDS ORDERED: CEPHALEXIN500 MG ORAL (20:28)
[2018-06-12] MEDS ORDERED: ATIVAN1 MG ORAL (20:28)
[2018-06-12] MEDS ORDERED: Hydromorphone 0.5mg/0.5ml inj IM PRN (21:00)
[2018-06-12] MEDS: LORazepam 1mg tab ORAL PRN (21:26)
[2018-06-12] MEDS ORDERED: D5 1/2NS 1,000 ML IV SCH (22:00)
[2018-06-12] MEDS: Piperacillin/Tazobactam 3.375 GM in NS 110 ML IVPB SCH (23:05)
[2018-06-12] MEDS: D5 1/2NS 1,000 ML IV SCH (23:59)
[2018-06-13] VITALS (7 sets, daily range): BP systolic 93–114; BP diastolic 53–65
[2018-06-13] MEDS: Hydromorphone 0.5mg/0.5ml inj IVP PRN ×5 (00:02→22:46)
[2018-06-13] MEDS: oxyCODONE HCL/Acetaminophen 5/325mg ORAL PRN ×2 (05:58→15:37)
[2018-06-13] MEDS: Piperacillin/Tazobactam 3.375 GM in NS 110 ML IVPB SCH ×3 (06:01→21:39)
[2018-06-13 06:54] LABS: ALANINE AMINOTRANSFERASE 16 U/L (12-78); ALBUMIN 2.6 G/DL (3.4-5.0); ALBUMIN/GLOBULIN RATIO 0.8 (1.0-2.7); ALKALINE PHOSPHATASE 43 U/L (46-116); ANION GAP 8 mmol/L (5-15); ASPARTATE AMINO TRANSFERASE 10 U/L (15-37); BASOPHILS % (AUTO) 1.3 % (0.0-2.0); BILIRUBIN,TOTAL 0.3 MG/DL (0.2-1.0); BLOOD UREA NITROGEN 8 mg/dL (7-18); CALCIUM 7.8 MG/DL (8.5-10.1); CARBON DIOXIDE 23 MMOL/L (21-32); CHLORIDE 107 MMOL/L (98-107); CREATININE 0.8 MG/DL (0.55-1.30); EOSINOPHILS % (AUTO) 4.7 % (0.0-3.0); HEMATOCRIT 33.2 % (37.0-47.0); HEMOGLOBIN 10.8 G/DL (12.0-16.0); LYMPHOCYTES % (AUTO) 47.8 % (20.0-45.0); MEAN CORPUSCULAR VOLUME 87 FL (80-99); MONOCYTES % (AUTO) 8.4 % (1.0-10.0); NEUTROPHILS % (AUTO) 37.8 % (45.0-75.0); PLATELET COUNT 243 K/UL (150-450); RED CELL DISTRIBUTION WIDTH 13.1 % (11.6-14.8); SODIUM 138 MMOL/L (136-145); WHITE BLOOD COUNT 7.4 K/UL (4.8-10.8)
--- NOTE | 2018-06-13 08:44 | History and Physical ---
History of Present Illness General Date patient seen: Jun 13, 2018 Time patient seen: 07:15 Reason for Hospitalization: Wound Recheck/Suture Removal Present Illness HPI 22 year female presents with Crohn's disease on monthly Remicade infusions, anxiety and depression, opiate dependance presented to the ED yesterday with complaints of 10/10 left axillary pain, nonradiating associated with erythema , swelling, warmth and drainage. Also with subjective fever and chills Patient had [place] [facility] She reports being hospitalized at an inpatient psychiatric facility recently due to difficulty coping with her pain. In ED she was started on IV antibiotics and referred for admission. Social History: No current tobacco use Family History: No premature CAD Allergies: Coded Allergies: SILVER (Verified Allergy, Mild, 06/13/18) AZATHIOPRINE (Verified Allergy, Unknown, 05/15/18) DOCUSATE (Verified Allergy, Unknown, 05/15/18) ok for oral LATEX (Verified Allergy, Unknown, 05/15/18) VANCOMYCIN (Verified Allergy, Unknown, 05/15/18) BISACODYL (Verified Adverse Reaction, Severe, Rash, 05/15/18) Uncoded Allergies: IODINE CONTRAST (Allergy, Unknown, 05/15/18) TAPE (Allergy, Unknown, 05/15/18) Medication History Scheduled Aripiprazole* (Abilify*), 2.5 MG ORAL DAILY, (Reported) Fluoxetine Hcl* (Prozac*), 20 MG ORAL DAILY, (Reported) Omeprazole Magnesium (Prilosec Otc), 20 MG ORAL DAILY, (Reported) Scheduled PRN Lorazepam* (Ativan*), 1 MG ORAL QID PRN for For Anxiety, (Reported) Oxycodone/Acetaminophen 5-325* (Percocet 5-325 Mg Tablet*), 1 TAB ORAL Q6HR PRN for Breakthrough Pain, (Reported) Miscellaneous Medications Unable to Obtain Medications (Unable To Obtain Meds), (Reported) Discontinued Medications Cephalexin* (Keflex*), 500 MG ORAL EVERY 12 HOURS, (Reported) Discontinued Reason: MD discontinued med Hydromorphone HCl/Pf (Dilaudid 2 mg/ml Syringe), 2 MG PO EVERY 4 HOURS PRN for Severe Pain (Pain Scale 7-10), (Reported) Discontinued Reason: Pt stopped taking med Levofloxacin* (Levaquin*), 750 MG ORAL DAILY, (Reported) Discontinued Reason: MD discontinued med Trimethoprim/Sulfamethoxazole 160/800* (Bactrim Ds Tablet*), 1 TAB ORAL TWICE A DAY, (Reported) Discontinued Reason: MD discontinued med Patient History Healthcare decision maker Resuscitation status Full Code Advanced Directive on File No Review of Systems Constitutional: Reports: chills, fever Eye: Denies: eye pain ENT: Denies: ear pain Respiratory: Denies: cough, orthopnea Cardiovascular: Denies: chest pain, edema Gastrointestinal: Denies: abdominal pain, constipation Genitourinary: Denies: discharge Musculoskeletal: Denies: back pain Skin: Denies: rash Psychiatric: Reports: depressed feelings Neurological: Denies: headache Physical Exam General Appearance: no apparent distress, alert HEENT: normocephalic, atraumatic, anicteric Neck: normal alignment, supple, normal inspection Respiratory/Chest: chest wall non-tender, lungs clear, normal breath sounds, no respiratory distress Cardiovascular/Chest: normal peripheral pulses, normal rate Abdomen: normal bowel sounds, non tender, soft Extremities: non-tender, other - Left axiallary dressing in place 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, no motor/sensory deficits, alert, oriented x 3 Last 24 Hour Vital Signs Date Time Temp Pulse Resp B/P (MAP) Pulse Ox O2 Delivery O2 Flow Rate FiO2 06/13/18 08:25 98.4 64 16 96/53 (67) 96 06/13/18 04:00 98.2 61 111/65 (80) 06/13/18 00:41 Room Air 06/13/18 00:00 98.3 85 114/61 (78) 06/12/18 19:05 98.2 83 100/62 (75) 06/12/18 18:35 98.9 92 17 122/82 99 Room Air 06/12/18 17:15 96 18 Room Air 06/12/18 17:13 98.7 96 18 114/78 100 Room Air 06/12/18 16:49 99.0 106 19 116/82 99 Room Air Intake and Output 06/12/18 06/13/18 19:00 07:00 Intake Total 2300 ml 1080 ml Balance 2300 ml 1080 ml Intake Oral 480 ml IV Total 2300 ml 600 ml # Voids 3 Laboratory Tests Test 06/12/18 16:57 06/12/18 17:30 06/13/18 05:35 Urine Color Pale yellow Urine Appearance Clear Urine pH 6 (4.5-8.0) Urine Specific [place] 1.025 (1.005-1.035) Urine Protein 1+ (NEGATIVE) H Urine Glucose (UA) Negative (NEGATIVE) Urine Ketones Negative (NEGATIVE) Urine Blood 2+ (NEGATIVE) H Urine Nitrite Negative (NEGATIVE) Urine Bilirubin Negative (NEGATIVE) Urine Urobilinogen Normal MG/DL (0.0-1.0) Urine Leukocyte Esterase Negative (NEGATIVE) Urine RBC 0-2 /HPF (0 - 2) Urine WBC 0 /HPF (0 - 2) Urine Squamous Epithelial Cells Few /LPF (NONE/OCC) Urine Bacteria None /HPF (NONE) Urine HCG, Qualitative Negative (NEGATIVE) White Blood Count 9.6 K/UL (4.8-10.8) 7.4 K/UL (4.8-10.8) Red Blood Count 4.07 M/UL (4.20-5.40) L 3.80 M/UL (4.20-5.40) L Hemoglobin 11.5 G/DL (12.0-16.0) L 10.8 G/DL (12.0-16.0) L Hematocrit 35.1 % (37.0-47.0) L 33.2 % (37.0-47.0) L Mean Corpuscular Volume 86 FL (80-99) 87 FL (80-99) Mean Corpuscular Hemoglobin 28.3 PG (27.0-31.0) 28.3 PG (27.0-31.0) Mean Corpuscular Hemoglobin Concent 32.8 G/DL (32.0-36.0) 32.4 G/DL (32.0-36.0) Red Cell Distribution Width 12.8 % (11.6-14.8) 13.1 % (11.6-14.8) Platelet Count 266 K/UL (150-450) 243 K/UL (150-450) Mean Platelet Volume 5.7 FL (6.5-10.1) L 6.4 FL (6.5-10.1) L Neutrophils (%) (Auto) 47.5 % (45.0-75.0) 37.8 % (45.0-75.0) L Lymphocytes (%) (Auto) 40.6 % (20.0-45.0) 47.8 % (20.0-45.0) H Monocytes (%) (Auto) 7.7 % (1.0-10.0) 8.4 % (1.0-10.0) Eosinophils (%) (Auto) 3.1 % (0.0-3.0) H 4.7 % (0.0-3.0) H Basophils (%) (Auto) 1.1 % (0.0-2.0) 1.3 % (0.0-2.0) Sodium Level 136 MMOL/L (136-145) 138 MMOL/L (136-145) Potassium Level 4.2 MMOL/L (3.5-5.1) 4.0 MMOL/L (3.5-5.1) Chloride Level 104 MMOL/L (98-107) 107 MMOL/L (98-107) Carbon Dioxide Level 24 MMOL/L (21-32) 23 MMOL/L (21-32) Anion Gap 9 mmol/L (5-15) 8 mmol/L (5-15) Blood Urea Nitrogen 14 mg/dL (7-18) 8 mg/dL (7-18) Creatinine 1.1 MG/DL (0.55-1.30) 0.8 MG/DL (0.55-1.30) Estimat Glomerular Filtration Rate > 60 mL/min (>60) > 60 mL/min (>60) Glucose Level 105 MG/DL (74-106) 98 MG/DL (74-106) Lactic Acid Level 1.40 mmol/L (0.4-2.0) Calcium Level 8.5 MG/DL (8.5-10.1) 7.8 MG/DL (8.5-10.1) L Total Bilirubin 0.4 MG/DL (0.2-1.0) 0.3 MG/DL (0.2-1.0) Aspartate Amino Transf (AST/SGOT) 12 U/L (15-37) L 10 U/L (15-37) L Alanine Aminotransferase (ALT/SGPT) 19 U/L (12-78) 16 U/L (12-78) Alkaline Phosphatase 54 U/L (46-116) 43 U/L (46-116) L Total Protein 7.0 G/DL (6.4-8.2) 5.7 G/DL (6.4-8.2) L Albumin 3.2 G/DL (3.4-5.0) L 2.6 G/DL (3.4-5.0) L Globulin 3.8 g/dL 3.1 g/dL Albumin/Globulin Ratio 0.8 (1.0-2.7) L 0.8 (1.0-2.7) L Height (Feet): 5 Height (Inches): 5.50 Weight (Pounds): 168 Medications Current Medications Medications (Trade) Dose Ordered Sig/Alix Route PRN Reason Start Time Stop Time Status Last Admin Dose Admin Aripiprazole (Abilify) 2.5 mg DAILY ORAL 06/13/18 09:00 07/13/18 08:59 Dextrose/Sodium Chloride 1,000 ml @ 75 mls/hr [id number] IV 06/12/18 22:00 06/13/18 10:00 06/12/18 23:06 Fluoxetine HCl (PROzac) 20 mg DAILY ORAL 06/13/18 09:00 07/13/18 08:59 Hydromorphone HCl (Dilaudid) 0.5 mg Q4H PRN IVP Severe pain 7-10 06/13/18 00:00 06/19/18 00:00 06/13/18 07:51 Linezolid 300 ml @ 300 mls/hr Q12HR IVPB 06/12/18 21:00 06/19/18 20:59 06/12/18 23:05 Lorazepam (Ativan) 1 mg QIDPRN PRN ORAL For Anxiety 06/12/18 21:00 06/19/18 20:59 06/12/18 21:26 Oxycodone/ Acetaminophen (Percocet 5-325) 1 tab Q6H PRN ORAL Breakthrough Pain 06/12/18 21:00 06/19/18 20:59 06/13/18 05:58 Pantoprazole (Protonix) 40 mg DAILY ORAL 06/12/18 21:15 07/12/18 21:14 06/12/18 23:04 Piperacillin Sod/ Tazobactam Sod 3.375 gm/Sodium Chloride 110 ml @ 27.5 mls/hr EVERY 8 HOURS IVPB 06/12/18 22:00 06/17/18 21:59 06/13/18 06:01 Assessment/Plan Assessment: #History of hidradenitis suppurativa with recent excision #Left axillary pain and drainage, concern for infection and possible recurrence of abscess. Does not meet SIRS/sepsis criteria but patient is on immunomodulators #Opiate dependance #Anxiety,Depression, no suicidal ideations -admit to medical service -continue Zyvox and Zosyn as recommended by ID -Plastic Surgery and ID consulted, patient may require I&D -Continue current pain regimen, may require pain management consult if pain is uncontrolled -Continue outpatient psychiatric medications -monitor CBC and BMP #History of Crohn's on Remicade -Remicade on hold for now -continue to monitor VTE PPx Heparin SC Full Code Markie Ortega MD Jun 13, 2018 08:44
[2018-06-13] MEDS: Nystatin Powder 100,000 units/gm 15gm TOPIC SCH ×2 (09:54→18:01)
[2018-06-13] MEDS: LORazepam 1mg tab ORAL PRN (09:54)
[2018-06-13] MEDS: D5 1/2NS 1,000 ML IV SCH (10:45)
--- NOTE | 2018-06-13 13:24 | Infectious Diseases Prog Note ---
Assessment/Plan Assessment/Plan Full consult dictated: A) 1) possible left axilla wound infection/cellulitis/abscess, ? fungal infection 2) left axilla hidradenitis suppurativa, s/p excision/debridement and wound closure 3) Crohn's disease, monthly remicade 4) allergy - vancomycin P) 1) zyvox and zosyn 2) treatment and surgery per Dr. Brambila 3) continue management per Dr. Grider 4) monitor labs 5) thank you Subjective Allergies: Coded Allergies: SILVER (Verified Allergy, Mild, 06/13/18) AZATHIOPRINE (Verified Allergy, Unknown, 05/15/18) DOCUSATE (Verified Allergy, Unknown, 05/15/18) ok for oral LATEX (Verified Allergy, Unknown, 05/15/18) VANCOMYCIN (Verified Allergy, Unknown, 05/15/18) BISACODYL (Verified Adverse Reaction, Severe, Rash, 05/15/18) Uncoded Allergies: IODINE CONTRAST (Allergy, Unknown, 05/15/18) TAPE (Allergy, Unknown, 05/15/18) Objective Vital Signs Last 24 Hour Vital Signs Date Time Temp Pulse Resp B/P (MAP) Pulse Ox O2 Delivery O2 Flow Rate FiO2 06/13/18 12:00 98.6 99 19 93/55 (68) 97 06/13/18 09:00 Room Air 06/13/18 08:25 98.4 64 16 96/53 (67) 96 06/13/18 04:00 98.2 61 111/65 (80) 06/13/18 00:41 Room Air 06/13/18 00:00 98.3 85 114/61 (78) 06/12/18 19:05 98.2 83 100/62 (75) 06/12/18 18:35 98.9 92 17 122/82 99 Room Air 06/12/18 17:15 96 18 Room Air 06/12/18 17:13 98.7 96 18 114/78 100 Room Air 06/12/18 16:49 99.0 106 19 116/82 99 Room Air Height (Feet): 5 Height (Inches): 5.50 Weight (Pounds): 168 Laboratory Tests Test 06/12/18 16:57 06/12/18 17:30 06/13/18 05:35 Urine Color Pale yellow Urine Appearance Clear Urine pH 6 (4.5-8.0) Urine Specific [place] 1.025 (1.005-1.035) Urine Protein 1+ (NEGATIVE) H Urine Glucose (UA) Negative (NEGATIVE) Urine Ketones Negative (NEGATIVE) Urine Blood 2+ (NEGATIVE) H Urine Nitrite Negative (NEGATIVE) Urine Bilirubin Negative (NEGATIVE) Urine Urobilinogen Normal MG/DL (0.0-1.0) Urine Leukocyte Esterase Negative (NEGATIVE) Urine RBC 0-2 /HPF (0 - 2) Urine WBC 0 /HPF (0 - 2) Urine Squamous Epithelial Cells Few /LPF (NONE/OCC) Urine Bacteria None /HPF (NONE) Urine HCG, Qualitative Negative (NEGATIVE) White Blood Count 9.6 K/UL (4.8-10.8) 7.4 K/UL (4.8-10.8) Red Blood Count 4.07 M/UL (4.20-5.40) L 3.80 M/UL (4.20-5.40) L Hemoglobin 11.5 G/DL (12.0-16.0) L 10.8 G/DL (12.0-16.0) L Hematocrit 35.1 % (37.0-47.0) L 33.2 % (37.0-47.0) L Mean Corpuscular Volume 86 FL (80-99) 87 FL (80-99) Mean Corpuscular Hemoglobin 28.3 PG (27.0-31.0) 28.3 PG (27.0-31.0) Mean Corpuscular Hemoglobin Concent 32.8 G/DL (32.0-36.0) 32.4 G/DL (32.0-36.0) Red Cell Distribution Width 12.8 % (11.6-14.8) 13.1 % (11.6-14.8) Platelet Count 266 K/UL (150-450) 243 K/UL (150-450) Mean Platelet Volume 5.7 FL (6.5-10.1) L 6.4 FL (6.5-10.1) L Neutrophils (%) (Auto) 47.5 % (45.0-75.0) 37.8 % (45.0-75.0) L Lymphocytes (%) (Auto) 40.6 % (20.0-45.0) 47.8 % (20.0-45.0) H Monocytes (%) (Auto) 7.7 % (1.0-10.0) 8.4 % (1.0-10.0) Eosinophils (%) (Auto) 3.1 % (0.0-3.0) H 4.7 % (0.0-3.0) H Basophils (%) (Auto) 1.1 % (0.0-2.0) 1.3 % (0.0-2.0) Sodium Level 136 MMOL/L (136-145) 138 MMOL/L (136-145) Potassium Level 4.2 MMOL/L (3.5-5.1) 4.0 MMOL/L (3.5-5.1) Chloride Level 104 MMOL/L (98-107) 107 MMOL/L (98-107) Carbon Dioxide Level 24 MMOL/L (21-32) 23 MMOL/L (21-32) Anion Gap 9 mmol/L (5-15) 8 mmol/L (5-15) Blood Urea Nitrogen 14 mg/dL (7-18) 8 mg/dL (7-18) Creatinine 1.1 MG/DL (0.55-1.30) 0.8 MG/DL (0.55-1.30) Estimat Glomerular Filtration Rate > 60 mL/min (>60) > 60 mL/min (>60) Glucose Level 105 MG/DL (74-106) 98 MG/DL (74-106) Lactic Acid Level 1.40 mmol/L (0.4-2.0) Calcium Level 8.5 MG/DL (8.5-10.1) 7.8 MG/DL (8.5-10.1) L Total Bilirubin 0.4 MG/DL (0.2-1.0) 0.3 MG/DL (0.2-1.0) Aspartate Amino Transf (AST/SGOT) 12 U/L (15-37) L 10 U/L (15-37) L Alanine Aminotransferase (ALT/SGPT) 19 U/L (12-78) 16 U/L (12-78) Alkaline Phosphatase 54 U/L (46-116) 43 U/L (46-116) L Total Protein 7.0 G/DL (6.4-8.2) 5.7 G/DL (6.4-8.2) L Albumin 3.2 G/DL (3.4-5.0) L 2.6 G/DL (3.4-5.0) L Globulin 3.8 g/dL 3.1 g/dL Albumin/Globulin Ratio 0.8 (1.0-2.7) L 0.8 (1.0-2.7) L Current Medications Medications (Trade) Dose Ordered Sig/Alix Route PRN Reason Start Time Stop Time Status Last Admin Dose Admin Aripiprazole (Abilify) 2.5 mg DAILY ORAL 06/13/18 09:00 07/13/18 08:59 06/13/18 09:19 Dextrose/Sodium Chloride 1,000 ml @ 75 mls/hr [id number] IV 06/13/18 10:39 07/13/18 10:38 06/13/18 10:45 Fluoxetine HCl (PROzac) 20 mg DAILY ORAL 06/13/18 09:00 07/13/18 08:59 06/13/18 09:18 Hydromorphone HCl (Dilaudid) 0.5 mg Q4H PRN IVP Severe pain 7-10 06/13/18 00:00 06/19/18 00:00 06/13/18 07:51 Linezolid 300 ml @ 300 mls/hr Q12HR IVPB 06/12/18 21:00 06/19/18 20:59 06/13/18 09:19 Lorazepam (Ativan) 1 mg QIDPRN PRN ORAL For Anxiety 06/12/18 21:00 06/19/18 20:59 06/13/18 09:54 Nystatin (Nystop Powder) 1 applic BID TOPIC 06/13/18 10:00 07/13/18 09:59 06/13/18 09:54 Oxycodone/ Acetaminophen (Percocet 5-325) 1 tab Q6H PRN ORAL Breakthrough Pain 06/12/18 21:00 06/19/18 20:59 06/13/18 05:58 Pantoprazole (Protonix) 40 mg DAILY ORAL 06/12/18 21:15 07/12/18 21:14 06/13/18 09:19 Piperacillin Sod/ Tazobactam Sod 3.375 gm/Sodium Chloride 110 ml @ 27.5 mls/hr EVERY 8 HOURS IVPB 06/12/18 22:00 06/17/18 21:59 06/13/18 06:01 Niya Holley MD Jun 13, 2018 13:23
--- NOTE | 2018-06-13 14:57 | Anethesia Preoperative Eval ---
Anesthesia Pre-op PMH/ROS General Date of Evaluation: Jun 13, 2018 Time of Evaluation: 14:24 Anesthesiologist: Qasim ASA Score: ASA 2 Mallampati Score Class I : Soft palate, uvula, fauces, pillars visible Class II: Soft palate, uvula, fauces visible Class III: Soft palate, base of uvula visible Class IV: Only hard plate visible Mallampati Classification: Class II Surgeon: Patty Diagnosis: Axillary Abscess Surgical Procedure: EUA, possible Debridement Anesthesia History: none Social History: drug use - Opiate Addiction Family History: no anesthesia problems Allergies: Coded Allergies: SILVER (Verified Allergy, Mild, 06/13/18) AZATHIOPRINE (Verified Allergy, Unknown, 05/15/18) DOCUSATE (Verified Allergy, Unknown, 05/15/18) ok for oral LATEX (Verified Allergy, Unknown, 05/15/18) VANCOMYCIN (Verified Allergy, Unknown, 05/15/18) BISACODYL (Verified Adverse Reaction, Severe, Rash, 05/15/18) Uncoded Allergies: IODINE CONTRAST (Allergy, Unknown, 05/15/18) TAPE (Allergy, Unknown, 05/15/18) Medications: see eMAR Patient NPO?: Yes Past Medical History Gastrointestinal/Genitourinary: Reports: other - Crohns Disease Neurologic/Psychiatric: Reports: depression/anxiety, other - Pyschiatric Hospital Admission Musculoskeletal/Integumentary: Reports: other - Axillary Abscess Anesthesia Pre-op Phys. Exam Physician Exam Last Vital Signs Date Time Temp Pulse Resp B/P (MAP) Pulse Ox O2 Delivery O2 Flow Rate FiO2 06/13/18 13:51 98.6 06/13/18 13:15 78 97/59 (72) 06/13/18 12:00 19 97 06/13/18 09:00 Room Air Constitutional: NAD Neurologic: CN 2-12 intact Cardiovascular: RRR Respiratory: CTA Gastrointestinal: S/NT/ND Airway Exam Mallampati Score: Class II MO: full ROM: full Teeth: intact Anesthesia Pre-op A/P Labs Hematology Test 06/12/18 17:30 06/13/18 05:35 White Blood Count 9.6 K/UL (4.8-10.8) 7.4 K/UL (4.8-10.8) Red Blood Count 4.07 M/UL (4.20-5.40) L 3.80 M/UL (4.20-5.40) L Hemoglobin 11.5 G/DL (12.0-16.0) L 10.8 G/DL (12.0-16.0) L Hematocrit 35.1 % (37.0-47.0) L 33.2 % (37.0-47.0) L Mean Corpuscular Volume 86 FL (80-99) 87 FL (80-99) Mean Corpuscular Hemoglobin 28.3 PG (27.0-31.0) 28.3 PG (27.0-31.0) Mean Corpuscular Hemoglobin Concent 32.8 G/DL (32.0-36.0) 32.4 G/DL (32.0-36.0) Red Cell Distribution Width 12.8 % (11.6-14.8) 13.1 % (11.6-14.8) Platelet Count 266 K/UL (150-450) 243 K/UL (150-450) Mean Platelet Volume 5.7 FL (6.5-10.1) L 6.4 FL (6.5-10.1) L Neutrophils (%) (Auto) 47.5 % (45.0-75.0) 37.8 % (45.0-75.0) L Lymphocytes (%) (Auto) 40.6 % (20.0-45.0) 47.8 % (20.0-45.0) H Monocytes (%) (Auto) 7.7 % (1.0-10.0) 8.4 % (1.0-10.0) Eosinophils (%) (Auto) 3.1 % (0.0-3.0) H 4.7 % (0.0-3.0) H Basophils (%) (Auto) 1.1 % (0.0-2.0) 1.3 % (0.0-2.0) Chemistry Test 06/12/18 17:30 06/13/18 05:35 Sodium Level 136 MMOL/L (136-145) 138 MMOL/L (136-145) Potassium Level 4.2 MMOL/L (3.5-5.1) 4.0 MMOL/L (3.5-5.1) Chloride Level 104 MMOL/L (98-107) 107 MMOL/L (98-107) Carbon Dioxide Level 24 MMOL/L (21-32) 23 MMOL/L (21-32) Anion Gap 9 mmol/L (5-15) 8 mmol/L (5-15) Blood Urea Nitrogen 14 mg/dL (7-18) 8 mg/dL (7-18) Creatinine 1.1 MG/DL (0.55-1.30) 0.8 MG/DL (0.55-1.30) Estimat Glomerular Filtration Rate > 60 mL/min (>60) > 60 mL/min (>60) Glucose Level 105 MG/DL (74-106) 98 MG/DL (74-106) Lactic Acid Level 1.40 mmol/L (0.4-2.0) Calcium Level 8.5 MG/DL (8.5-10.1) 7.8 MG/DL (8.5-10.1) L Total Bilirubin 0.4 MG/DL (0.2-1.0) 0.3 MG/DL (0.2-1.0) Aspartate Amino Transf (AST/SGOT) 12 U/L (15-37) L 10 U/L (15-37) L Alanine Aminotransferase (ALT/SGPT) 19 U/L (12-78) 16 U/L (12-78) Alkaline Phosphatase 54 U/L (46-116) 43 U/L (46-116) L Total Protein 7.0 G/DL (6.4-8.2) 5.7 G/DL (6.4-8.2) L Albumin 3.2 G/DL (3.4-5.0) L 2.6 G/DL (3.4-5.0) L Globulin 3.8 g/dL 3.1 g/dL Albumin/Globulin Ratio 0.8 (1.0-2.7) L 0.8 (1.0-2.7) L Urine Test Test 06/12/18 16:57 Urine HCG, Qualitative Negative (NEGATIVE) Risk Assessment & Plan Assessment: ASA 2 Plan: GA Status Change Before Surgery: No Pre-Antibiotics Drug: Jadon Carcamo MD Jun 13, 2018 14:56
--- NOTE | 2018-06-13 16:00 | Consultation ---
DATE OF CONSULTATION: 06/13/2018 HISTORY OF PRESENT ILLNESS: This is a 22-year-old female with a history of Crohn disease and hidradenitis, who is now approximately three and half weeks status post radical debridement and reconstruction of her left axilla. She recently also underwent Remicade infusion for her Crohn disease and presented to the emergency room last night for a significant amount of pain in her left axilla as well as concern for wound infection. The patient also complains of subjective fevers and chills prior to arrival to the emergency room. She was admitted by the medical team and started on IV antibiotics. PAST MEDICAL HISTORY: Significant for Crohn disease and hidradenitis. PAST SURGICAL HISTORY: Multiple axillary operations for hidradenitis most recently a month ago. She underwent radical debridement and reconstruction. PHYSICAL EXAMINATION: GENERAL: The patient is alert and oriented. HEART: Regular rate and rhythm. ABDOMEN: Soft, nontender, and nondistended. EXTREMITIES: Examination of the left axilla reveals evidence of cellulitis around the incision with also what appears to be a fungal infection around the perioperative site. There is some mild drainage as well from the donor site of the lateral thoracic flap; however the flap itself was completely viable. ASSESSMENT AND PLAN: This is a 22-year-old, who is now three and half weeks status post left axillary reconstruction status post debridement and removal of hidradenitis. The patient is also status post Remicade infusion which puts her at a high risk for perioperative wound infections. At this time, given the overall wound appearance we will plan on continued intravenous antibiotics and putting some nystatin powder on the patient's wound and skin to help with the irritation and also we will perform an examination under anesthesia with removal of sutures as well as debridement of the open areas tomorrow with the plan being to have Infectious Diseases also see the patient and discharge planning as per the medical team following the EUA tomorrow. Sagar Brambila M.D. DR: Shayna JOB#: [id number] CC:
[2018-06-13] MEDS: DAPTOmycin 500 MG in NS 50 ML IV SCH (17:04)
[2018-06-13] MEDS ORDERED: NS 275ml ONE (17:18)
[2018-06-13] MEDS ORDERED: Tubing IV Secondary IV ONE (17:18)
[2018-06-13] MEDS ORDERED: D5 1/2NS 1000ml IV ONE (17:18)
--- NOTE | 2018-06-13 17:30 | Consultation ---
DATE OF CONSULTATION: 06/13/2018 INFECTIOUS DISEASES CONSULTATION CONSULTING PHYSICIAN: Niya Holley M.D. ATTENDING PHYSICIAN: Mary Cabrera M.D. REFERRING PHYSICIAN: 1. Mary Cabrera M.D. 2. Shannon Aden M.D. REASON FOR CONSULTATION: Possible infected left axilla wound with cellulitis and possible abscess. The patient with history of hidradenitis suppurativa. CHIEF COMPLAINT: The patient's chief complaint coming into the hospital is possible postop infection. HISTORY OF PRESENT ILLNESS: This is a 22-year-old female who comes into [facility] with wound dehiscence looks like of the surgical wound. The patient has a history of hidradenitis suppurativa and she is status post left axillary hidradenitis excision and flap elevation and closure. The patient said she noted that there was drainage at the wound site and looks like the patient could have wound dehiscence upon reexamining the surgical wound by the RN at the bedside. Infectious Disease consultation requested for possible infected wound of the left axilla and what looks like possible cellulitis with redness and rule out underlying abscess. The patient is allergic to vancomycin. I started the patient yesterday on Zosyn and Zyvox. The patient to undergo surgery tomorrow I believe per RN who discussed with Dr. Brambila. Prior to this, she was on Levaquin and Bactrim postoperative antibiotics in addition intravenous antibiotics including daptomycin and Zosyn during the prior hospitalization. Continue Zosyn and Zyvox for now. REVIEW OF SYSTEMS: The main issue is the wound drainage. The patient described some left axilla pain. She denies any fever chills. HEAD AND NECK: No thrush, dysphagia, or neck stiffness. CARDIAC: No chest pain. GASTROINTESTINAL: No nausea, vomiting, or diarrhea. GENITOURINARY: No dysuria or frequency. PULMONARY: No congestion or shortness of breath. No other rash or itching. PAST MEDICAL HISTORY: The patient's past medical history includes history of following: The patient has past medical history of hidradenitis suppurativa, history of hidradenitis excision of left axilla and flap closure, history of anxiety, history of Crohn disease. She is on monthly Remicade. She has no history of diabetes or hypertension. ALLERGIES: The patient is allergic to azathioprine. She is also allergic to bisacodyl, docusate, iodine contrast, latex, Silver tape, and vancomycin. SOCIAL HISTORY: Negative for smoking, alcohol, or drug abuse. FAMILY HISTORY: Noncontributory. Negative for exposure to tuberculosis or cancer. MEDICATIONS: Upon reviewing the MAR, the patient is on the following medication, Diflucan, nystatin, aripiprazole, fluoxetine Prozac, hydromorphone, Zosyn, Protonix, linezolid, Ativan, oxycodone, morphine, hydromorphone. Outside medications noted and reconciliated. PHYSICAL EXAMINATION: VITAL SIGNS: Temperature is 98.6, pulse rate is 78, respiratory rate 19, blood pressure 97/59, saturating 97%. GENERAL: Alert and responsive, no acute distress. HEAD AND NECK: Oral exam, no thrush. Eye exam, no icterus. Neck is supple. No jugular venous distention. Normocephalic. HEART: Regular. No gallop or murmur. No friction rub. ABDOMEN: Soft. Positive bowel sounds and nontender. LUNGS: Clear bilaterally. No rhonchi or rales. SKIN: No rash. Her left axilla area and also around the left back area close to the axilla, the wound had some dehiscence with some redness noted. No bj pus, but there might be some drainage but did have redness. MUSCULOSKELETAL: No effusions. Legs are without cellulitis. PERIPHERAL VASCULAR: No cyanosis. GENITOURINARY: She has no Simmons. No CVA tenderness. NEUROLOGIC: Intact. Alert and oriented x3 LABORATORY AND DIAGNOSTIC DATA: Laboratory data as follows: The patient's white count 7.4, hemoglobin 10.8, platelet count is 243. Creatinine is 0.8. Urinalysis was leukocyte esterase negative. ASSESSMENT AND PLAN: 1. The patient has possible left axilla infected wound and cellulitis and underlying abscess, rule out fungal component with fungal infection. The patient had recent left axilla hidradenitis suppurativa excision and debridement and wound closure. The patient will be continued on antibiotics, Zosyn. She is currently on Zosyn and Zyvox however but, she is on antidepressant. I will change the Zyvox to daptomycin. She is allergic to vancomycin. Continue Zosyn and daptomycin. The patient to undergo surgery tomorrow. We have discussed with nursing staff possible debridement but I am unclear of the surgery at this point, but the patient is to undergo surgery tomorrow. Continue the Zosyn and daptomycin and checks surgical cultures if done depending on what is seen at surgery and also continue wound care per Dr. Brambila. Monitor labs. Check CK because I am placing her on daptomycin. 2. The patient has history of Crohn disease. The patient is on monthly Remicade. 3. The patient has history of hidradenitis suppurativa, status post surgery. 4. The patient has anemia. 5. No history of diabetes or hypertension. 6. History of opiate dependency per the records. 7. Anxiety. 8. Also looks like she has history of depression. 9. Allergies to azathioprine, bisacodyl, docusate, iodine contrast, latex, Silver tape, and vancomycin. 10. Social history is negative. 11. Family history is noncontributory. 12. MAR was noted. 13. Case discussed with RN. 14. Case communicated with Dr. Shannon Aden. Niya Holley M.D. DR: Sher JOB#: [id number] CC: QUENTIN
[2018-06-13] MEDS: DiphenhydrAMINE 50mg/ml Inj IVP PRN (21:39)
[2018-06-14] VITALS (16 sets, daily range): BP systolic 89–107; BP diastolic 44–64
[2018-06-14] MEDS: Hydromorphone 0.5mg/0.5ml inj IVP PRN ×3 (03:42→08:54)
[2018-06-14] MEDS: D5 1/2NS 1,000 ML IV SCH (03:42)
[2018-06-14] MEDS: Piperacillin/Tazobactam 3.375 GM in NS 110 ML IVPB SCH ×3 (06:18→22:13)
[2018-06-14] MEDS: oxyCODONE HCL/Acetaminophen 5/325mg ORAL PRN (06:20)
[2018-06-14] MEDS ORDERED: Succinylcholine 20mg/ml 10ml vial ONE (07:05)
[2018-06-14] MEDS ORDERED: Rocuronium Bromide 50mg/5ml Inj IV ONE (07:05)
[2018-06-14] MEDS ORDERED: fentaNYL 100 mcg/2 mL IV ONE (07:11)
[2018-06-14] MEDS ORDERED: Lidocaine 1% MPF 10mg/ml 5ml ONE (07:11)
[2018-06-14] MEDS ORDERED: EPINEPHrine 1mg/1ml Amp ONE (07:11)
[2018-06-14] MEDS ORDERED: Propofol 200mg/20ml IV ONE (07:11)
[2018-06-14] MEDS ORDERED: Midazolam 2mg/2ml Inj ONE (07:11)
[2018-06-14] MEDS ORDERED: Lidocaine 1% 10mg/ml/EPI 0.01mg/ml 50ml INJ ONE (07:12)
[2018-06-14] MEDS ORDERED: Bacitracin 50000 Units Vial ONE (07:12)
[2018-06-14] MEDS ORDERED: NeoSporin Gu Irrig 1ml Amp IRRIG ONE (07:12)
[2018-06-14 07:18] LABS: BASOPHILS % (AUTO) 1.1 % (0.0-2.0); EOSINOPHILS % (AUTO) 4.8 % (0.0-3.0); HEMATOCRIT 35.9 % (37.0-47.0); HEMOGLOBIN 11.9 G/DL (12.0-16.0); LYMPHOCYTES % (AUTO) 51.1 % (20.0-45.0); MEAN CORPUSCULAR VOLUME 88 FL (80-99); MONOCYTES % (AUTO) 6.2 % (1.0-10.0); NEUTROPHILS % (AUTO) 36.7 % (45.0-75.0); PLATELET COUNT 229 K/UL (150-450); WHITE BLOOD COUNT 7.4 K/UL (4.8-10.8)
--- NOTE | 2018-06-14 07:27 | Anethesia Preoperative Eval ---
Anesthesia Pre-op PMH/ROS General Date of Evaluation: Jun 14, 2018 Time of Evaluation: 07:10 Anesthesiologist: Alisson Marks ASA Score: ASA 2 Mallampati Score Class I : Soft palate, uvula, fauces, pillars visible Class II: Soft palate, uvula, fauces visible Class III: Soft palate, base of uvula visible Class IV: Only hard plate visible Mallampati Classification: Class I Surgeon: Patty Diagnosis: Post op infection; hidradenitis Surgical Procedure: Exam under anesthesia, possible wound debridement Family History: no anesthesia problems Allergies: Coded Allergies: SILVER (Verified Allergy, Mild, 06/13/18) AZATHIOPRINE (Verified Allergy, Unknown, 05/15/18) DOCUSATE (Verified Allergy, Unknown, 05/15/18) ok for oral LATEX (Verified Allergy, Unknown, 05/15/18) VANCOMYCIN (Verified Allergy, Unknown, 05/15/18) BISACODYL (Verified Adverse Reaction, Severe, Rash, 05/15/18) Uncoded Allergies: IODINE CONTRAST (Allergy, Unknown, 05/15/18) TAPE (Allergy, Unknown, 05/15/18) Medications: see eMAR Patient NPO?: Yes NPO Date: Jun 14, 2018 NPO Time: 0000 Past Medical History Cardiovascular: Denies: HTN, CAD, GA, valve dz, arrhythmia, other Pulmonary: Denies: asthma, COPD, INDIRA, other Gastrointestinal/Genitourinary: Reports: other - Crohn's disease q 2 month remicade infusions, s/p ex lap, colon resection; hiatal hernia; Denies: GERD, CRI, ESRD Neurologic/Psychiatric: Reports: depression/anxiety, other - opioid dependence ; Denies: dementia, CVA, TIA Endocrine: Denies: DM, hypothyroidism, steroids, other HEENT: Denies: cataract (L), cataract (R), glaucoma, [place] (L), [place] (R), other Hematology/Immune: Denies: anemia, DVT, bleeding disorder, other Musculoskeletal/Integumentary: Reports: other - LEFT hidradenitis; Denies: OA, RA, DJD, DDD, edema PMH Narrative: as noted above PSxH Narrative: ex lap, bowel resection, LEFT axillary hidradinitis Anesthesia Pre-op Phys. Exam Physician Exam Last Vital Signs Date Time Temp Pulse Resp B/P (MAP) Pulse Ox O2 Delivery O2 Flow Rate FiO2 06/14/18 04:00 98.1 63 18 97/51 (66) 100 06/13/18 21:00 Room Air Constitutional: NAD Neurologic: CN 2-12 intact - alert & oriented Cardiovascular: RRR Respiratory: CTA Gastrointestinal: S/NT/ND Airway Exam Mallampati Score: Class I MO: full Neck: FROM TMD: > 3 FB ROM: full Teeth: intact Dentures: no upper, no lower Anesthesia Pre-op A/P Labs Hematology Test 06/14/18 06:00 White Blood Count Pending Red Blood Count Pending Hemoglobin Pending Hematocrit Pending Mean Corpuscular Volume Pending Mean Corpuscular Hemoglobin Pending Mean Corpuscular Hemoglobin Concent Pending Red Cell Distribution Width Pending Platelet Count Pending Mean Platelet Volume Pending Neutrophils (%) (Auto) Pending Lymphocytes (%) (Auto) Pending Monocytes (%) (Auto) Pending Eosinophils (%) (Auto) Pending Basophils (%) (Auto) Pending Chemistry Test 06/14/18 06:00 Sodium Level Pending Potassium Level Pending Chloride Level Pending Carbon Dioxide Level Pending Blood Urea Nitrogen Pending Creatinine Pending Estimat Glomerular Filtration Rate Pending Glucose Level Pending Calcium Level Pending Total Creatine Kinase Pending Urine Test negative Risk Assessment & Plan Status Change Before Surgery: No Pre-Antibiotics Drug: Zosyn 3.375 gm Given Within 1 Hr of Incision: Yes Time Given: 06:30 Alisson Marks CRNA Jun 14, 2018 07:27
[2018-06-14] MEDS ORDERED: Metoclopramide 10mg/2ml Inj ONE (07:30)
[2018-06-14] MEDS ORDERED: NS Irrig 1000ml ONE (07:30)
[2018-06-14] MEDS ORDERED: LR 1000ml ONE (07:30)
[2018-06-14] MEDS ORDERED: Sterile Water Irrig 1000ml IRRIG ONE (07:30)
[2018-06-14 07:31] LABS: CREATINE KINASE 51 U/L (26-308)
--- NOTE | 2018-06-14 07:34 | Pre-Procedure Note/Attestation ---
Pre-Procedure Note/Attestation Complete Prior to Procedure Planned Procedure: left Procedure Narrative: Left axillary exam under anesthesia with possible debridement Attestation I attest that I discussed the nature of the procedure; its benefits; risks and complications; and alternatives (and the risks and benefits of such alternatives ), prior to the procedure, with the patient (or the patient's legal sales representative [employer]). I attest that, if there was a reasonable possibility of needing a blood transfusion, the patient (or the patient's legal sales representative [employer]) was given the [facility] standardized written summary, pursuant to the Ishan Eli Blood Safety Act ([place] Health and Safety Code # 1645, as amended). I attest that I re-evaluated the patient just prior to the surgery and that there has been no change in the patient's H&P, except as documented below: Sagar Brambila MD Jun 14, 2018 07:34
[2018-06-14] MEDS ORDERED: NS Irrig 1000ml IRRIG ONE (07:39)
[2018-06-14 07:43] LABS: ANION GAP 12 mmol/L (5-15); BLOOD UREA NITROGEN 7 mg/dL (7-18); CALCIUM 8.6 MG/DL (8.5-10.1); CARBON DIOXIDE 22 MMOL/L (21-32); CHLORIDE 105 MMOL/L (98-107); CREATININE 0.8 MG/DL (0.55-1.30); POTASSIUM 4.1 MMOL/L (3.5-5.1); SODIUM 139 MMOL/L (136-145)
[2018-06-14] MEDS ORDERED: Hydromorphone 0.5mg/0.5ml inj IVP PRN (07:45)
[2018-06-14] MEDS ORDERED: HYDROmorphone 1mg/ml Carpuject IVP PRN (07:45)
[2018-06-14] MEDS ORDERED: Neosporin Oint Ud Pkt TOPIC ONE (08:07)
[2018-06-14] MEDS ORDERED: Morphine Sulfate 10mg/ml Inj ONE (08:12)
--- NOTE | 2018-06-14 08:24 | Operative Note - PDOC ---
Operative Note Operative Note Pre-op Diagnosis: left axillary wound dehiscence and infection Post-op Diagnosis: same as pre-op Surgeon: Patty Dispatcher Service: Julisa Anesthesia: general Specimen: none Complications: none Estimated Blood Loss: none Drains: none Implant(s) used?: No Sagar Brambila MD Jun 14, 2018 08:24
--- NOTE | 2018-06-14 08:33 | Immediate Post-Op Evaluation ---
Immediate Post-Op Evalulation Immediate Post-Op Evalulation Procedure: LEFT axilla exam under anesthesia, debridement Date of Evaluation: Jun 14, 2018 Time of Evaluation: 08:22 IV Fluids: LR 300ml Estimated Blood Loss: 0 Blood Pressure Systolic: 107 Blood Pressure Diastolic: 63 Pulse Rate: 64 Respiratory Rate: 20 O2 Sat by Pulse Oximetry: 100 Temperature (Fahrenheit): 98.0 Pain Score (1-10): 5 Nausea: No Vomiting: No Complications none Patient Status: awake, reacts, patent Hydration Status: adequate Drug: zosyn 3.375 mg Given Within 1 Hr of Incision: Yes Time Given: 06:30 Alisson Marks CRNA Jun 14, 2018 08:33
[2018-06-14] MEDS ORDERED: DiphenhydrAMINE 50mg/ml Inj IVP PRN (08:45)
[2018-06-14] MEDS: Nystatin Powder 100,000 units/gm 15gm TOPIC SCH ×2 (09:00→17:30)
[2018-06-14] MEDS: Fluconazole 100mg tab ORAL SCH (10:54)
--- NOTE | 2018-06-14 13:01 | General Progress Note ---
Assessment/Plan Assessment/Plan: #History of hidradenitis suppurativa with recent excision #left axillary wound dehiscence and infection s/p I&D 06/14/18 #Opiate dependance #Anxiety,Depression, without suicidal ideations -continue inaptient level of care -continue Daptomycin and Zosyn as recommended by ID -Plastic Surgery and ID following -Continue current pain regimen, may require pain management consult if pain is uncontrolled -Continue outpatient psychiatric medications -monitor CBC and BMP #History of Crohn's on Remicade -Remicade on hold for now -continue to monitor VTE PPx Heparin SC Full Code Subjective Date patient seen: Jun 14, 2018 Time patient seen: 11:35 ROS Limited/Unobtainable: No Constitutional: Denies: chills, fever Cardiovascular: Denies: chest pain Respiratory: Denies: cough Gastrointestinal/Abdominal: Denies: abdominal pain Allergies: Coded Allergies: SILVER (Verified Allergy, Mild, 06/13/18) AZATHIOPRINE (Verified Allergy, Unknown, 05/15/18) DOCUSATE (Verified Allergy, Unknown, 05/15/18) ok for oral LATEX (Verified Allergy, Unknown, 05/15/18) VANCOMYCIN (Verified Allergy, Unknown, 05/15/18) BISACODYL (Verified Adverse Reaction, Severe, Rash, 05/15/18) Uncoded Allergies: IODINE CONTRAST (Allergy, Unknown, 05/15/18) TAPE (Allergy, Unknown, 05/15/18) Subjective Medicine follow up for left axillary wound dehiscence and infection. Underwent I &D by Plastic Surgery today. Objective Last 24 Hour Vital Signs Date Time Temp Pulse Resp B/P (MAP) Pulse Ox O2 Delivery O2 Flow Rate FiO2 06/14/18 11:59 98.8 79 20 101/56 (71) 99 06/14/18 11:32 98.8 06/14/18 11:00 97.9 82 20 93/51 (65) 99 06/14/18 10:00 98.3 68 19 92/47 (62) 99 06/14/18 09:30 98.5 80 14 89/48 (62) 100 80 06/14/18 09:30 98.0 06/14/18 09:18 98.0 65 20 98/45 100 Nasal Cannula 3 65 06/14/18 09:05 91 22 91/47 100 Nasal Cannula 3 91 06/14/18 09:00 63 18 92/52 100 Nasal Cannula 3 63 06/14/18 09:00 Nasal Cannula 3.0 06/14/18 08:50 72 19 97/55 100 Nasal Cannula 3 72 06/14/18 08:40 60 23 91/44 100 Nasal Cannula 3 60 06/14/18 08:33 64 20 100 06/14/18 08:30 59 23 98/48 100 Simple Mask 6 59 06/14/18 08:25 62 20 93/64 100 Simple Mask 6 62 06/14/18 08:22 98.0 64 20 107/63 100 Simple Mask 6 64 06/14/18 04:00 98.1 63 18 97/51 (66) 100 06/14/18 00:00 97.9 63 18 101/54 (70) 99 06/13/18 21:00 Room Air 06/13/18 20:00 98.4 71 18 101/61 (74) 100 06/13/18 18:37 99.2 06/13/18 16:07 99.2 06/13/18 16:00 99.2 64 18 101/58 (72) 98 06/13/18 13:15 78 97/59 (72) Intake and Output 06/13/18 06/14/18 19:00 07:00 Intake Total 1642.5 ml 650 ml Balance 1642.5 ml 650 ml Intake Oral 300 ml 650 ml IV Total 1342.5 ml # Voids 2 3 Laboratory Tests 06/14/18 06:00: White Blood Count 7.4, Red Blood Count 4.10L, Hemoglobin 11.9L, Hematocrit 35.9L , Mean Corpuscular Volume 88, Mean Corpuscular Hemoglobin 29.1, Mean Corpuscular Hemoglobin Concent 33.2, Red Cell Distribution Width 13.0, Platelet Count 229, Mean Platelet Volume 6.2L, Neutrophils (%) (Auto) 36.7L, Lymphocytes (%) (Auto) 51.1H, Monocytes (%) (Auto) 6.2, Eosinophils (%) (Auto) 4.8H, Basophils (%) (Auto) 1.1, Sodium Level 139, Potassium Level 4.1, Chloride Level 105, Carbon Dioxide Level 22, Anion Gap 12, Blood Urea Nitrogen 7, Creatinine 0.8, Estimat Glomerular Filtration Rate > 60, Glucose Level 90, Calcium Level 8.6, Total Creatine Kinase 51 Height (Feet): 5 Height (Inches): 5.50 Weight (Pounds): 168 General Appearance: no apparent distress, alert EENT: normal ENT inspection Neck: normal alignment, supple Cardiovascular: normal rate, regular rhythm Respiratory/Chest: lungs clear, normal breath sounds Abdomen: non tender, soft Markie Ortega MD Jun 14, 2018 13:01
[2018-06-14] MEDS: DiphenhydrAMINE 50mg/ml Inj IVP PRN ×2 (13:09→19:22)
--- NOTE | 2018-06-14 16:00 | Operative Note - Dictated ---
DATE OF OPERATION: 06/14/2018 PREOPERATIVE DIAGNOSIS: Status post left axillary reconstruction following debridement of hidradenitis suppurativa with a postoperative wound dehiscence and infection. POSTOPERATIVE DIAGNOSIS: Status post left axillary reconstruction following debridement of hidradenitis suppurativa with a postoperative wound dehiscence and infection. PROCEDURES: 1. Examination under anesthesia. 2. Removal of sutures. 3. Debridement of surgical wound. SURGEON: Sagar Brambila M.D. BRAILLE DUPLICATING MACHINE OPERATOR: Leo Egan M.D. ANESTHESIA: General. COMPLICATIONS: None. DRAINS: None. DISPOSITION: Stable to the recovery room. INDICATIONS FOR SURGERY: This is a 22-year-old female, who is now approximately three and a half weeks status post left axillary reconstruction following excision of hidradenitis of advanced hidradenitis, who presented to the emergency room 36 hours ago with pain and cellulitis around her left axillary reconstruction. Upon evaluation by me, she had evidence of wound dehiscence, in particular from the area of the flap donor site as well as the inferior edge of the flap inset area, and there was also evidence of some cellulitis with an overlying fungal infection. The plan was for the patient to be started on IV antibiotics, which she was and to be given nystatin powder to address the skin fungal infection as well as performing a debridement and removal of the sutures in the operating room. Of note, the patient also has Crohn disease for which she got a Remicade infusion approximately two and a half to three weeks ago, which also puts her at a higher risk for perioperative wound infections, which is why it was felt that it would be most safe to proceed cautiously with the intravenous antibiotics and debridement of her wound. She understood the risks and benefits of surgery and agreed to proceed. DETAILS OF THE OPERATION: The patient was brought to the operating room and laid in the supine position on the operating table. Her left axilla was prepped and draped in a sterile and usual fashion. We first began by using a forceps and sutures were removed all the sutures that were present within the wound. The wound was then examined and there appeared to be no deep pockets of pus. The superior aspect of the flap was well inset, was the inferior aspect along the portion where it was sutured to the chest wall where there appeared to be a dehiscence with some nonviable tissue as well. This area was cleansed with sharp debridement using a #15 blade removing the slough and nonviable tissue, and in a similar fashion the donor site where the flap was harvested from was also debrided sharply with a #15 blade to punctate bleeding. Once this was done, we proceeded to irrigate and washed all the open areas of the wound and dry dressings were applied. The plan will be to leave the dressings in place for the next 24 hours and then perform daily dressing changes. Given the overall appearance of the wound, I anticipate the wounds to heal within the next several weeks. The most important aspect of the reconstruction of the flap, the lateral chest wall flap is fully viable and 100% alive with no evidence of any vascular compromise. All needle and sponge counts were correct. There was no complications. Sagar Brambila M.D. DR: MAICO JOB#: [id number] CC:
[2018-06-14] MEDS: DAPTOmycin 500 MG in NS 50 ML IV SCH (19:22)
[2018-06-14] MEDS: Heparin 5000 units/ml inj SUBQ SCH (20:28)
[2018-06-15] VITALS: BP 95/55
[2018-06-15] MEDS: D5 1/2NS 1,000 ML IV SCH ×2 (02:39→15:59)
[2018-06-15] MEDS: DiphenhydrAMINE 50mg/ml Inj IVP PRN ×2 (03:42→09:27)
[2018-06-15 04:00] VITALS: BP 97/53
[2018-06-15] MEDS: Piperacillin/Tazobactam 3.375 GM in NS 110 ML IVPB SCH ×3 (04:50→22:14)
[2018-06-15 06:47] LABS: ANION GAP 6 mmol/L (5-15); BLOOD UREA NITROGEN 11 mg/dL (7-18); CALCIUM 7.9 MG/DL (8.5-10.1); CARBON DIOXIDE 27 MMOL/L (21-32); CHLORIDE 107 MMOL/L (98-107); CREATININE 0.8 MG/DL (0.55-1.30); POTASSIUM 3.9 MMOL/L (3.5-5.1); SODIUM 140 MMOL/L (136-145)
[2018-06-15 07:06] LABS: BASOPHILS % (AUTO) 1.3 % (0.0-2.0); HEMATOCRIT 33.3 % (37.0-47.0); HEMOGLOBIN 10.7 G/DL (12.0-16.0); LYMPHOCYTES % (AUTO) 42.8 % (20.0-45.0); MEAN CORPUSCULAR VOLUME 89 FL (80-99); NEUTROPHILS % (AUTO) 42.8 % (45.0-75.0); PLATELET COUNT 205 K/UL (150-450); RED BLOOD COUNT 3.76 M/UL (4.20-5.40); WHITE BLOOD COUNT 7.1 K/UL (4.8-10.8)
[2018-06-15 08:00] VITALS: BP 98/52
--- NOTE | 2018-06-15 08:05 | 48 Hour Post Anesthesia Eval ---
Post Anesthesia Evaluation Procedure: LEFT axilla exam under anesthesia, debridement Date of Evaluation: Jun 15, 2018 Time of Evaluation: 08:03 Blood Pressure Systolic: 96 0: 54 Pulse Rate: 76 Respiratory Rate: 20 Temperature (Fahrenheit): 97.6 O2 Sat by Pulse Oximetry: 98 Airway: patent Nausea: No Vomiting: No Pain Intensity: 3 Hydration Status: adequate Cardiopulmonary Status: stable Mental Status/LOC: patient returned to baseline Follow-up Care/Observations: n/a Post-Anesthesia Complications: none Follow-up care needed: N/A Baudilio Garnett MD Jun 15, 2018 08:05
[2018-06-15] MEDS: Heparin 5000 units/ml inj SUBQ SCH ×2 (09:26→22:14)
[2018-06-15] MEDS: Fluconazole 100mg tab ORAL SCH (09:34)
--- NOTE | 2018-06-15 11:27 | General Progress Note ---
Progress Note Progress Note Pt seen and examined. POD# 1 from EUA and debridement. Doing well. Flap is fully viable. Will apply nystatin powder to the skin around the reconstruction. Plan on DC home in AM. Sagar Campbell MD, MD Jun 15, 2018 11:27
[2018-06-15 12:00] VITALS: BP 101/58
[2018-06-15] MEDS: Nystatin Powder 100,000 units/gm 15gm TOPIC SCH ×2 (12:04→18:47)
--- NOTE | 2018-06-15 13:12 | General Progress Note ---
Assessment/Plan Assessment/Plan: #History of hidradenitis suppurativa with recent excision #left axillary wound dehiscence and infection s/p I&D 06/14/18 #Opiate dependance #Anxiety,Depression, without suicidal ideations -continue Daptomycin and Zosyn as recommended by ID, spoke to ID regarding transition to oral antibiotic in preparation for discharge home tomorrow -Spoke with outpatient case manager to help arrange visiting nurse for dressing changes -Plastic Surgery and ID following -Continue current pain regimen, will continue Percocet at outpatient -Continue outpatient psychiatric medications -monitor CBC and BMP #History of Crohn's on Remicade -Remicade on hold for now -continue to monitor VTE PPx Heparin SC Full Code Subjective Date patient seen: Jun 15, 2018 Time patient seen: 11:22 ROS Limited/Unobtainable: No Constitutional: Denies: chills Cardiovascular: Denies: chest pain Respiratory: Denies: cough, shortness of breath Gastrointestinal/Abdominal: Denies: abdominal pain Neurologic/Psychiatric: Denies: anxiety, depressed Allergies: Coded Allergies: SILVER (Verified Allergy, Mild, 06/13/18) AZATHIOPRINE (Verified Allergy, Unknown, 05/15/18) DOCUSATE (Verified Allergy, Unknown, 05/15/18) ok for oral LATEX (Verified Allergy, Unknown, 05/15/18) VANCOMYCIN (Verified Allergy, Unknown, 05/15/18) BISACODYL (Verified Adverse Reaction, Severe, Rash, 05/15/18) Uncoded Allergies: IODINE CONTRAST (Allergy, Unknown, 05/15/18) TAPE (Allergy, Unknown, 05/15/18) Subjective Medicine follow up for left axillary wound dehiscence and infection. Underwent I &D by Plastic Surgery yesterday. No new complaints Objective Last 24 Hour Vital Signs Date Time Temp Pulse Resp B/P (MAP) Pulse Ox O2 Delivery O2 Flow Rate FiO2 06/15/18 08:05 76 20 98 06/15/18 08:00 99.1 79 18 98/52 (67) 97 06/15/18 04:00 98.5 77 18 97/53 (68) 96 06/15/18 00:00 99.2 81 18 95/55 (68) 97 06/14/18 21:00 Nasal Cannula 3.0 06/14/18 20:00 98.9 85 18 96/55 (69) 95 06/14/18 16:00 98.8 92 19 98/56 (70) 95 06/14/18 15:40 98.8 Intake and Output 06/14/18 06/15/18 19:00 07:00 Intake Total 1807.5 ml 1245 ml Output Total 20 ml Balance 1787.5 ml 1245 ml Intake Oral 300 ml 420 ml IV Total 1507.5 ml 825 ml Output Estimated Blood Loss 20 ml # Voids 1 10 # Bowel Movements 1 Laboratory Tests 06/15/18 05:40: White Blood Count 7.1, Red Blood Count 3.76L, Hemoglobin 10.7L, Hematocrit 33.3L , Mean Corpuscular Volume 89, Mean Corpuscular Hemoglobin 28.5, Mean Corpuscular Hemoglobin Concent 32.1, Red Cell Distribution Width 13.0, Platelet Count 205, Mean Platelet Volume 6.3L, Neutrophils (%) (Auto) 42.8L, Lymphocytes (%) (Auto) 42.8, Monocytes (%) (Auto) 8.0, Eosinophils (%) (Auto) 5.0H, Basophils (%) (Auto) 1.3, Sodium Level 140, Potassium Level 3.9, Chloride Level 107, Carbon Dioxide Level 27, Anion Gap 6, Blood Urea Nitrogen 11, Creatinine 0.8, Estimat Glomerular Filtration Rate > 60, Glucose Level 96, Calcium Level 7.9L Height (Feet): 5 Height (Inches): 5.50 Weight (Pounds): 168 General Appearance: no apparent distress, alert Neck: normal alignment, supple Cardiovascular: normal rate, regular rhythm Respiratory/Chest: lungs clear, normal breath sounds Abdomen: non tender, soft Markie Ortega MD Jun 15, 2018 13:12
--- NOTE | 2018-06-15 14:56 | Infectious Diseases Prog Note ---
Assessment/Plan Assessment/Plan ASSESSMENT AND PLAN: 1. left axilla wound infection and wound dehiscence, s/p debridement and suture removal - - zosyn and daptomycin - monitor labs - can transition to oral augmentin and doxycycline x 10 days - d/w Dr. Nathan 2. The patient has history of Crohn disease. The patient is on monthly Remicade. 3. The patient has history of left axilla hidradenitis suppurativa, status post surgery - excision and wound/flap closure. 4. The patient has anemia. 5. No history of diabetes or hypertension. 6. History of opiate dependency per the records. 7. Anxiety. 8. Also looks like she has history of depression. 9. Allergies to azathioprine, bisacodyl, docusate, iodine contrast, latex, Silver tape, and vancomycin. 10. Social history is negative. 11. Family history is noncontributory. 12. MAR was noted. 13. Case discussed with RN. 14. Case communicated with Dr. Nathan-Kolton Aden. Subjective Constitutional: Denies: fever HEENT: Denies: congestion Respiratory: Denies: shortness of breath Cardiovascular: Denies: chest pain Gastrointestinal/Abdominal: Denies: nausea, vomiting, diarrhea Genitourinary: Reports: other - no santana Neurologic: Denies: headache Psychiatric: Denies: depression Skin: Denies: rash Hematologic: Denies: bleeding Musculoskeletal: Denies: pain Allergies: Coded Allergies: SILVER (Verified Allergy, Mild, 06/13/18) AZATHIOPRINE (Verified Allergy, Unknown, 05/15/18) DOCUSATE (Verified Allergy, Unknown, 05/15/18) ok for oral LATEX (Verified Allergy, Unknown, 05/15/18) VANCOMYCIN (Verified Allergy, Unknown, 05/15/18) BISACODYL (Verified Adverse Reaction, Severe, Rash, 05/15/18) Uncoded Allergies: IODINE CONTRAST (Allergy, Unknown, 05/15/18) TAPE (Allergy, Unknown, 05/15/18) Objective Vital Signs Last 24 Hour Vital Signs Date Time Temp Pulse Resp B/P (MAP) Pulse Ox O2 Delivery O2 Flow Rate FiO2 06/15/18 08:05 76 20 98 06/15/18 08:00 99.1 79 18 98/52 (67) 97 06/15/18 04:00 98.5 77 18 97/53 (68) 96 06/15/18 00:00 99.2 81 18 95/55 (68) 97 06/14/18 21:00 Nasal Cannula 3.0 06/14/18 20:00 98.9 85 18 96/55 (69) 95 06/14/18 16:00 98.8 92 19 98/56 (70) 95 06/14/18 15:40 98.8 Height (Feet): 5 Height (Inches): 5.50 Weight (Pounds): 168 General Appearance: no acute distress HEENT: normocephalic, atraumatic, anicteric, mucous membranes moist Respiratory/Chest: lungs clear, normal breath sounds, no respiratory distress, no accessory muscle use Cardiovascular: normal rate, regular rhythm, no gallop/murmur, no JVD Abdomen: normal bowel sounds, soft, non tender, no organomegaly, non distended Genitourinary: other - no santana Extremities: no cyanosis Skin: no rash Neurologic/Psychiatric: rides 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 Complete 06/12/18 18:08 Rectum VRE Culture - Final NO VANCOMYCIN RESISTANT ENTEROCOCCUS ... Complete 06/12/18 18:08 Rectum - Final NO CARBAPENEM-RESISTANT ENTEROBACTERI... Complete Laboratory Tests Test 06/15/18 05:40 White Blood Count 7.1 K/UL (4.8-10.8) Red Blood Count 3.76 M/UL (4.20-5.40) L Hemoglobin 10.7 G/DL (12.0-16.0) L Hematocrit 33.3 % (37.0-47.0) L Mean Corpuscular Volume 89 FL (80-99) Mean Corpuscular Hemoglobin 28.5 PG (27.0-31.0) Mean Corpuscular Hemoglobin Concent 32.1 G/DL (32.0-36.0) Red Cell Distribution Width 13.0 % (11.6-14.8) Platelet Count 205 K/UL (150-450) Mean Platelet Volume 6.3 FL (6.5-10.1) L Neutrophils (%) (Auto) 42.8 % (45.0-75.0) L Lymphocytes (%) (Auto) 42.8 % (20.0-45.0) Monocytes (%) (Auto) 8.0 % (1.0-10.0) Eosinophils (%) (Auto) 5.0 % (0.0-3.0) H Basophils (%) (Auto) 1.3 % (0.0-2.0) Sodium Level 140 MMOL/L (136-145) Potassium Level 3.9 MMOL/L (3.5-5.1) Chloride Level 107 MMOL/L (98-107) Carbon Dioxide Level 27 MMOL/L (21-32) Anion Gap 6 mmol/L (5-15) Blood Urea Nitrogen 11 mg/dL (7-18) Creatinine 0.8 MG/DL (0.55-1.30) Estimat Glomerular Filtration Rate > 60 mL/min (>60) Glucose Level 96 MG/DL (74-106) Calcium Level 7.9 MG/DL (8.5-10.1) L Current Medications Medications (Trade) Dose Ordered Sig/Alix Route PRN Reason Start Time Stop Time Status Last Admin Dose Admin Acetaminophen (Tylenol) 650 mg Q4H PRN ORAL FEVER 06/14/18 07:45 07/14/18 07:44 06/14/18 20:27 Aripiprazole (Abilify) 2.5 mg DAILY ORAL 06/13/18 09:00 07/13/18 08:59 06/15/18 09:33 Daptomycin 500 mg/ Sodium Chloride 50 ml @ 100 mls/hr Q24H IV 06/13/18 17:00 06/20/18 16:59 06/14/18 19:22 Dextrose/Sodium Chloride 1,000 ml @ 75 mls/hr [id number] IV 06/13/18 10:39 07/13/18 10:38 06/15/18 02:39 Diphenhydramine HCl (Benadryl) 50 mg Q6H PRN ORAL Itching 06/15/18 13:15 07/15/18 13:14 Fluconazole (Diflucan) 100 mg DAILY ORAL 06/14/18 09:00 06/21/18 08:59 06/15/18 09:34 Fluoxetine HCl (PROzac) 20 mg DAILY ORAL 06/13/18 09:00 07/13/18 08:59 06/15/18 09:32 Heparin Sodium (Porcine) (Heparin 5000 units/ml) 5,000 units EVERY 12 HOURS SUBQ 06/14/18 21:00 07/14/18 20:59 06/15/18 09:26 Hydromorphone HCl (Dilaudid) 0.5 mg Q3H PRN IVP Pain Score 1-3 06/14/18 07:45 06/21/18 07:44 Hydromorphone HCl (Dilaudid) 1 mg Q3H PRN IVP pain score 4-6 06/14/18 07:45 06/21/18 07:44 Hydromorphone HCl (Dilaudid) 2 mg Q3H PRN IVP pain score 7-10 06/14/18 07:45 06/21/18 07:44 06/15/18 04:50 Lorazepam (Ativan) 1 mg QIDPRN PRN ORAL For Anxiety 06/12/18 21:00 06/19/18 20:59 06/13/18 09:54 Nystatin (Nystop Powder) 1 applic BID TOPIC 06/13/18 10:00 07/13/18 09:59 06/15/18 12:04 Pantoprazole (Protonix) 40 mg DAILY ORAL 06/12/18 21:15 07/12/18 21:14 06/15/18 09:28 Piperacillin Sod/ Tazobactam Sod 3.375 gm/Sodium Chloride 110 ml @ 27.5 mls/hr EVERY 8 HOURS IVPB 06/12/18 22:00 06/17/18 21:59 06/15/18 04:50 Niya Holley MD Jun 15, 2018 14:56
[2018-06-15] MEDS ORDERED: oxyCODONE HCL/Acetaminophen 5/325mg ORAL PRN (19:45)
[2018-06-15] MEDS: DAPTOmycin 500 MG in NS 50 ML IV SCH (19:58)
[2018-06-15] MEDS: oxyCODONE HCL/Acetaminophen 5/325mg ORAL PRN (19:59)
[2018-06-15 20:00] VITALS: BP 102/61
[2018-06-16] VITALS: BP 100/56
[2018-06-16 04:00] VITALS: BP 96/50
[2018-06-16] MEDS: Piperacillin/Tazobactam 3.375 GM in NS 110 ML IVPB SCH (05:48)
[2018-06-16] MEDS: oxyCODONE HCL/Acetaminophen 5/325mg ORAL PRN (05:49)
[2018-06-16] MEDS: D5 1/2NS 1,000 ML IV SCH (05:50)
[2018-06-16 08:00] VITALS: BP 95/58
--- NOTE | 2018-06-16 08:50 | Discharge Summary ---
Discharge Summary Hospital Course Date of Admission Jun 12, 2018 at 17:54 Date of Discharge 06/16/18 Admitting Diagnosis post-op infection HPI Kenzie Caruso is a 22 year old female who was admitted on Jun 12, 2018 at 17:54 for Post-Op Infection Hospital Course #Sepsis, present on admission #History of hidradenitis suppurativa with recent excision #left axillary wound dehiscence and infection s/p I&D 06/14/18 #Opiate dependance #Anxiety,Depression, without suicidal ideations -was on Daptomycin and Zosyn as recommended by ID, transitioned to oral antibiotic per ID -Dischareg home with visiting nurse -Plastic Surgery followup as outpatient #History of Crohn's on Remicade -Remicade on hold for now Time spent in preapring discharge was 35 minutes Discharge Discharge Disposition Patient was discharged to home Discharge Diagnoses: (1) Sepsis (2) Post op infection Markie Ortega MD Jun 16, 2018 08:50
[2018-06-16] MEDS ORDERED: Tubing IV Secondary IV ONE (08:51)
[2018-06-16] MEDS: Fluconazole 100mg tab ORAL SCH (10:08)
[2018-06-16] MEDS: Heparin 5000 units/ml inj SUBQ SCH (10:14)
[2018-06-16] MEDS: Nystatin Powder 100,000 units/gm 15gm TOPIC SCH (10:15)
[2018-06-16 11:35] VITALS: BP 90/54
[2018-06-16] MEDS ORDERED: MONODOX100 MG PO (12:21)
[2018-06-16] MEDS ORDERED: AMOX TR-K CLV1 EAC2 ORAL (12:28)
[2018-06-16] MEDS ORDERED: FLUCONAZOLE100 MG ORAL (12:29)
[2018-06-16] MEDS ORDERED: NYSTATIN15 G2 TP (12:32)
== END 2018-06-16 13:00 | disposition home health service (06) | DRG 856 ==
LOC: EMR 17:06 → 3E 17:54 → EDBEDREQ 18:23
PROC: 3E03328 Introduction of Oxazolidinones into Peripheral Vein, Percutaneous Approach (ICD-10-PCS; 2018-06-12)
PROC: 0JBF0ZZ Excision of Left Upper Arm Subcutaneous Tissue and Fascia, Open Approach (ICD-10-PCS; principal; 2018-06-14 07:30)
DX: T81.41XA Infection following a procedure, superficial incisional surgical site, initial encounter (principal); A41.9 Sepsis, unspecified organism; K50.90 Crohn's disease, unspecified, without complications; F11.20 Opioid dependence, uncomplicated; T81.31XA Disruption of external operation (surgical) wound, not elsewhere classified, initial encounter; L03.112 Cellulitis of left axilla; B48.8 Other specified mycoses; F41.8 Other specified anxiety disorders; L08.9 Local infection of the skin and subcutaneous tissue, unspecified; Y83.8 Other surgical procedures as the cause of abnormal reaction of the patient, or of later complication, without mention of misadventure at the time of the procedure; Z88.1 Allergy status to other antibiotic agents; Z88.8 Allergy status to other drugs, medicaments and biological substances; Z91.041 Radiographic dye allergy status
CPT/HCPCS: 36415; 80048; 80053; 81003; 81025; 82550; 83605; 85025; 87040; 87081; 94003; 94150; 96361; 96374; 99285; J2250; J2405; J2765

== ENCOUNTER 2018-09-17 20:05 | Inpatient (IN) | payer OTHER ==
[~2018-09-17] VITALS: Ht 165.1 cm; Wt 85.7 kg
[~2018-09-17 20:05] MED LIST changes: +AMOX TR-K CLV1 EAC2 ORAL; +ATIVAN1 MG ORAL; +CEPHALEXIN500 MG ORAL; +FLUCONAZOLE100 MG ORAL; +MONODOX100 MG PO; +NYSTATIN15 G2 TP; +PRILOSEC OTC20 MG ORAL; +PROZAC20 MG ORAL
[2018-09-17 20:22] VITALS: BP 103/74
[2018-09-17] MEDS ORDERED: HYDROmorphone 1mg/ml Carpuject IVP ONE (20:30)
[2018-09-17] MEDS ORDERED: Bactrim-DS 1 tab ORAL ONE (20:30)
[2018-09-17 20:55] LABS: EOSINOPHILS % (AUTO) 1.3 % (0.0-3.0); HEMOGLOBIN 12.4 G/DL (12.0-16.0); MEAN CORPUSCULAR VOLUME 84 FL (80-99); MONOCYTES % (AUTO) 10.3 % (1.0-10.0); NEUTROPHILS % (AUTO) 53.5 % (45.0-75.0); PLATELET COUNT 350 K/UL (150-450); RED CELL DISTRIBUTION WIDTH 11.8 % (11.6-14.8); WHITE BLOOD COUNT 10.9 K/UL (4.8-10.8)
[2018-09-17 21:02] LABS: ANION GAP 5 mmol/L (5-15); BLOOD UREA NITROGEN 14 mg/dL (7-18); CALCIUM 8.2 MG/DL (8.5-10.1); CARBON DIOXIDE 29 MMOL/L (21-32); CHLORIDE 106 MMOL/L (98-107); CREATININE 0.9 MG/DL (0.55-1.30); POTASSIUM 3.9 MMOL/L (3.5-5.1); SODIUM 140 MMOL/L (136-145)
[2018-09-17 21:05] LABS: INR 0.9 (0.9-1.1)
[2018-09-17 21:06] LABS: ALANINE AMINOTRANSFERASE 25 U/L (12-78); ALBUMIN 2.9 G/DL (3.4-5.0); ALBUMIN/GLOBULIN RATIO 0.7 (1.0-2.7); ALKALINE PHOSPHATASE 64 U/L (46-116); ASPARTATE AMINO TRANSFERASE 12 U/L (15-37); BILIRUBIN,TOTAL 0.1 MG/DL (0.2-1.0)
[2018-09-17] MEDS ORDERED: Milk of Magnesia 30ml Ud ORAL PRN (21:15)
[2018-09-17] MEDS ORDERED: LORazepam 1mg tab ORAL PRN (21:15)
[2018-09-17] MEDS ORDERED: HYDROmorphone 1mg/ml Carpuject IVP PRN (21:15)
--- NOTE | 2018-09-17 21:17 | Emergency Room Report ---
History of Present Illness General Chief Complaint: Skin Rash/Abscess Source: Patient Present Illness HPI 23-year-old female presents with right axilla pain, patient had an I&D over the past 24hours patient denies any fever chills, she endorses a sharp pain severe in nature, no aggravating or relieving factors, patient has been taking [place] at home, 7.5 mg, no chest pain, no shortness of breath, she states abscess is very painful, sent by Dr. Whelan for evaluation Allergies: Coded Allergies: SILVER (Verified Allergy, Mild, 06/13/18) AZATHIOPRINE (Verified Allergy, Unknown, 05/15/18) DOCUSATE (Verified Allergy, Unknown, 05/15/18) ok for oral LATEX (Verified Allergy, Unknown, 05/15/18) VANCOMYCIN (Verified Allergy, Unknown, 05/15/18) BISACODYL (Verified Adverse Reaction, Severe, Rash, 05/15/18) Uncoded Allergies: IODINE CONTRAST (Allergy, Unknown, 05/15/18) TAPE (Allergy, Unknown, 05/15/18) Patient History Past Medical History: see triage record Last Menstrual Period: 09/17/18 Now: No Reviewed Nursing Documentation: PMH: Agreed; PSxH: Agreed Nursing Documentation-PMH Past Medical History: No History, Except For Hx Cancer: No Hx Gastrointestinal Problems: Yes Hx Neurological Problems: No Review of Systems All Other Systems: negative except mentioned in HPI Physical Exam Vital Signs Date Time Temp Pulse Resp B/P (MAP) Pulse Ox O2 Delivery O2 Flow Rate FiO2 09/17/18 20:14 98.8 79 16 103/74 (84) 97 Room Air Sp02 EP Interpretation: reviewed, normal General Appearance: well appearing, alert, mild distress Head: normocephalic, atraumatic Eyes: bilateral eye PERRL, bilateral eye EOMI ENT: uvula midline, moist mucus membranes Neck: supple, thyroid normal, supple/symm/no masses Respiratory: lungs clear, no respiratory distress, no retraction, no accessory muscle use Cardiovascular #1: normal peripheral pulses, regular rate, rhythm, no edema, no gallop, no murmur Gastrointestinal: non tender, soft, no guarding, no rebound Musculoskeletal: normal inspection Neurologic: alert, oriented x3 Psychiatric: mood/affect normal Skin: warm/dry, other - Axilla, no erythema, there is an abscess with packing, no active drainage, no erythema Medical Decision Making Diagnostic Impression: Primary Impression: Abscess Additional Impression: Hidradenitis suppurativa of right axilla ER Course 23-year-old female presents with right axilla pain, concerning for worsening suppurativa hidradenitis, antibiotics given, Bactrim, pain control with Dilaudid , patient will be admitted for antibiotics, and possible operative management, patient admitted to Dr. Rick plasencia. Laboratory Tests Test 09/17/18 20:40 White Blood Count 10.9 K/UL (4.8-10.8) H Red Blood Count 4.50 M/UL (4.20-5.40) Hemoglobin 12.4 G/DL (12.0-16.0) Hematocrit 38.0 % (37.0-47.0) Mean Corpuscular Volume 84 FL (80-99) Mean Corpuscular Hemoglobin 27.7 PG (27.0-31.0) Mean Corpuscular Hemoglobin Concent 32.8 G/DL (32.0-36.0) Red Cell Distribution Width 11.8 % (11.6-14.8) Platelet Count 350 K/UL (150-450) Mean Platelet Volume 5.3 FL (6.5-10.1) L Neutrophils (%) (Auto) 53.5 % (45.0-75.0) Lymphocytes (%) (Auto) 34.0 % (20.0-45.0) Monocytes (%) (Auto) 10.3 % (1.0-10.0) H Eosinophils (%) (Auto) 1.3 % (0.0-3.0) Basophils (%) (Auto) 1.0 % (0.0-2.0) Prothrombin Time 9.6 SEC (9.30-11.50) Prothrombin Time INR 0.9 (0.9-1.1) PTT 25 SEC (23-33) Sodium Level 140 MMOL/L (136-145) Potassium Level 3.9 MMOL/L (3.5-5.1) Chloride Level 106 MMOL/L (98-107) Carbon Dioxide Level 29 MMOL/L (21-32) Anion Gap 5 mmol/L (5-15) Blood Urea Nitrogen 14 mg/dL (7-18) Creatinine 0.9 MG/DL (0.55-1.30) Estimate Glomerular Filtration Rate > 60 mL/min (>60) Glucose Level 97 MG/DL (74-106) Calcium Level 8.2 MG/DL (8.5-10.1) L Total Bilirubin 0.1 MG/DL (0.2-1.0) L Aspartate Amino Transferase (AST) 12 U/L (15-37) L Alanine Aminotransferase (ALT) 25 U/L (12-78) Alkaline Phosphatase 64 U/L (46-116) Total Protein 7.0 G/DL (6.4-8.2) Albumin 2.9 G/DL (3.4-5.0) L Globulin 4.1 g/dL Albumin/Globulin Ratio 0.7 (1.0-2.7) L Last Vital Signs Date Time Temp Pulse Resp B/P (MAP) Pulse Ox O2 Delivery O2 Flow Rate FiO2 09/17/18 20:22 98.8 16 103/74 97 Room Air 09/17/18 20:14 79 Disposition: ADMITTED INPATIENT Condition: Stable Referrals: NON PHYSICIAN (PCP) Jose Contreras MD Sep 17, 2018 21:17
[2018-09-17 21:50] VITALS: BP 103/74
[2018-09-17 22:14] VITALS: BP 112/70
[2018-09-18] VITALS (7 sets, daily range): BP systolic 103–119; BP diastolic 65–76
[2018-09-18] MEDS ORDERED: DiphenhydrAMINE 50mg/ml Inj IVP SCH ×2 (02:15→13:15)
[2018-09-18 07:27] LABS: BASOPHILS % (AUTO) 0.6 % (0.0-2.0); EOSINOPHILS % (AUTO) 1.6 % (0.0-3.0); HEMATOCRIT 39.9 % (37.0-47.0); HEMOGLOBIN 12.7 G/DL (12.0-16.0); LYMPHOCYTES % (AUTO) 34.2 % (20.0-45.0); MEAN CORPUSCULAR VOLUME 87 FL (80-99); NEUTROPHILS % (AUTO) 57.6 % (45.0-75.0); PLATELET COUNT 328 K/UL (150-450); RED BLOOD COUNT 4.56 M/UL (4.20-5.40); RED CELL DISTRIBUTION WIDTH 12.5 % (11.6-14.8); WHITE BLOOD COUNT 11.5 K/UL (4.8-10.8)
[2018-09-18 07:43] LABS: ANION GAP 6 mmol/L (5-15); BLOOD UREA NITROGEN 15 mg/dL (7-18); CALCIUM 8.6 MG/DL (8.5-10.1); CARBON DIOXIDE 26 MMOL/L (21-32); CHLORIDE 106 MMOL/L (98-107); CREATININE 0.8 MG/DL (0.55-1.30); POTASSIUM 4.3 MMOL/L (3.5-5.1); SODIUM 138 MMOL/L (136-145)
[2018-09-18] MEDS: Heparin 5000 units/ml inj SUBQ SCH ×2 (09:12→20:35)
[2018-09-18] MEDS: DiphenhydrAMINE 50mg/ml Inj IVP PRN ×3 (10:47→22:56)
--- NOTE | 2018-09-18 14:11 | Infectious Diseases Prog Note ---
Assessment/Plan Assessment/Plan Full consult dictated: A) 1) right axilla abscess/cellulitis and infected hidradenitis suppurativa/ wound infection, s/p I/D 2) severe right axilla duran on palpation 3) pmh noted 4) allergies - noted P) 1) daptomycin and ceftriaxone 2) possible further debridement needed - surgery to evaluate 3) d/w Dr. Jeronimo 4) monitor labs 5) thank you Subjective Allergies: Coded Allergies: SILVER (Verified Allergy, Mild, 06/13/18) AZATHIOPRINE (Verified Allergy, Unknown, 05/15/18) DOCUSATE (Verified Allergy, Unknown, 05/15/18) ok for oral LATEX (Verified Allergy, Unknown, 05/15/18) VANCOMYCIN (Verified Allergy, Unknown, 05/15/18) BISACODYL (Verified Adverse Reaction, Severe, Rash, 05/15/18) Uncoded Allergies: IODINE CONTRAST (Allergy, Unknown, 05/15/18) TAPE (Allergy, Unknown, 05/15/18) Objective Vital Signs Last 24 Hour Vital Signs Date Time Temp Pulse Resp B/P (MAP) Pulse Ox O2 Delivery O2 Flow Rate FiO2 09/18/18 12:45 97.7 83 18 113/67 (82) 96 09/18/18 12:00 97.7 83 18 113/67 (82) 96 09/18/18 09:42 97.9 09/18/18 09:35 Room Air 09/18/18 08:00 97.9 83 18 114/66 (82) 99 09/18/18 04:00 97.6 68 18 109/65 (80) 92 09/18/18 00:00 96.4 75 17 103/66 (78) 90 09/17/18 22:14 Room Air 09/17/18 22:14 98.1 62 17 112/70 (84) 97 09/17/18 21:50 98.1 16 103/74 97 Room Air 09/17/18 21:50 98.1 16 103/74 97 Room Air 09/17/18 21:14 98.1 09/17/18 20:22 98.8 16 103/74 97 Room Air 09/17/18 20:14 98.8 79 16 103/74 (84) 97 Room Air Height (Feet): 5 Height (Inches): 5.00 Weight (Pounds): 186 Laboratory Tests Test 09/17/18 20:40 09/18/18 05:28 White Blood Count 10.9 K/UL (4.8-10.8) H 11.5 K/UL (4.8-10.8) H Red Blood Count 4.50 M/UL (4.20-5.40) 4.56 M/UL (4.20-5.40) Hemoglobin 12.4 G/DL (12.0-16.0) 12.7 G/DL (12.0-16.0) Hematocrit 38.0 % (37.0-47.0) 39.9 % (37.0-47.0) Mean Corpuscular Volume 84 FL (80-99) 87 FL (80-99) Mean Corpuscular Hemoglobin 27.7 PG (27.0-31.0) 27.8 PG (27.0-31.0) Mean Corpuscular Hemoglobin Concent 32.8 G/DL (32.0-36.0) 31.8 G/DL (32.0-36.0) L Red Cell Distribution Width 11.8 % (11.6-14.8) 12.5 % (11.6-14.8) Platelet Count 350 K/UL (150-450) 328 K/UL (150-450) Mean Platelet Volume 5.3 FL (6.5-10.1) L 5.5 FL (6.5-10.1) L Neutrophils (%) (Auto) 53.5 % (45.0-75.0) 57.6 % (45.0-75.0) Lymphocytes (%) (Auto) 34.0 % (20.0-45.0) 34.2 % (20.0-45.0) Monocytes (%) (Auto) 10.3 % (1.0-10.0) H 6.0 % (1.0-10.0) Eosinophils (%) (Auto) 1.3 % (0.0-3.0) 1.6 % (0.0-3.0) Basophils (%) (Auto) 1.0 % (0.0-2.0) 0.6 % (0.0-2.0) Prothrombin Time 9.6 SEC (9.30-11.50) Prothromb Time International Ratio 0.9 (0.9-1.1) Activated Partial Thromboplast Time 25 SEC (23-33) Sodium Level 140 MMOL/L (136-145) 138 MMOL/L (136-145) Potassium Level 3.9 MMOL/L (3.5-5.1) 4.3 MMOL/L (3.5-5.1) Chloride Level 106 MMOL/L (98-107) 106 MMOL/L (98-107) Carbon Dioxide Level 29 MMOL/L (21-32) 26 MMOL/L (21-32) Anion Gap 5 mmol/L (5-15) 6 mmol/L (5-15) Blood Urea Nitrogen 14 mg/dL (7-18) 15 mg/dL (7-18) Creatinine 0.9 MG/DL (0.55-1.30) 0.8 MG/DL (0.55-1.30) Estimat Glomerular Filtration Rate > 60 mL/min (>60) > 60 mL/min (>60) Glucose Level 97 MG/DL (74-106) 91 MG/DL (74-106) Calcium Level 8.2 MG/DL (8.5-10.1) L 8.6 MG/DL (8.5-10.1) Total Bilirubin 0.1 MG/DL (0.2-1.0) L Aspartate Amino Transf (AST/SGOT) 12 U/L (15-37) L Alanine Aminotransferase (ALT/SGPT) 25 U/L (12-78) Alkaline Phosphatase 64 U/L (46-116) Total Protein 7.0 G/DL (6.4-8.2) Albumin 2.9 G/DL (3.4-5.0) L Globulin 4.1 g/dL Albumin/Globulin Ratio 0.7 (1.0-2.7) L Current Medications Medications (Trade) Dose Ordered Sig/Alix Route PRN Reason Start Time Stop Time Status Last Admin Dose Admin Acetaminophen (Tylenol) 650 mg Q4H PRN ORAL fever 09/17/18 21:15 10/17/18 21:14 Aripiprazole (Abilify) 2.5 mg DAILY ORAL 09/18/18 09:00 10/18/18 08:59 09/18/18 09:11 Dextrose (Dextrose 50%) 25 ml Q30M PRN IV Hypoglycemia 09/17/18 21:15 10/17/18 21:14 Dextrose (Dextrose 50%) 50 ml Q30M PRN IV Hypoglycemia 09/17/18 21:15 10/17/18 21:14 Diphenhydramine HCl (Benadryl) 25 mg ONCE IVP 09/18/18 13:15 09/18/18 14:15 09/18/18 13:13 Diphenhydramine HCl (Benadryl) 25 mg Q6H PRN IVP Itching 09/18/18 10:45 10/18/18 10:44 09/18/18 10:47 Famotidine (Pepcid) 20 mg BID ORAL 09/18/18 09:00 10/18/18 08:59 09/18/18 09:11 Fluoxetine HCl (PROzac) 20 mg DAILY ORAL 09/18/18 09:00 10/18/18 08:59 09/18/18 09:11 Heparin Sodium (Porcine) (Heparin 5000 units/ml) 5,000 units EVERY 12 HOURS SUBQ 09/18/18 09:00 10/18/18 08:59 09/18/18 09:12 Hydromorphone HCl (Dilaudid) 1 mg Q4H PRN IVP Moderate Pain (Pain Scale 4-6) 09/17/18 21:15 09/24/18 21:14 Hydromorphone HCl (Dilaudid) 2 mg Q4H PRN IVP Severe Pain (Pain Scale 7-10) 09/17/18 21:15 09/24/18 21:14 09/18/18 09:12 Lorazepam (Ativan) 1 mg Q6H PRN ORAL For Anxiety 09/17/18 21:15 09/24/18 21:14 Magnesium Hydroxide (Mom) 30 ml HSPRN PRN ORAL Constipation 09/17/18 21:15 10/17/18 21:14 Ondansetron HCl (Zofran) 4 mg Q6H PRN IVP Nausea & Vomiting 09/17/18 21:15 10/17/18 21:14 Niya Holley MD Sep 18, 2018 14:11
[2018-09-18] MEDS: cefTRIAXone 1 GM in D5W 50 ML IVPB SCH (15:45)
[2018-09-18] MEDS: DAPTOmycin 500 MG in NS 50 ML IV SCH (15:45)
--- NOTE | 2018-09-18 18:26 | History and Physical ---
History of Present Illness General Date patient seen: Sep 18, 2018 Reason for Hospitalization: Skin Rash/Abscess Present Illness HPI 22 year female presents with Crohn's disease on monthly Remicade infusions, anxiety and depression, presented to the ED yesterday with complaints of 10/10 R axillary pain s/p I&D of abscess at outside hospital. Since procedure pt has been having increased pain not relieved with [place] therefore presented to ED. Pt also complains of vers and chills, denies SOB, chest pain, n/v/c/d, urinary complaints or abdominal complaints . In ED she was given bactrim, IV pain meds and referred for admission. Allergies: Coded Allergies: SILVER (Verified Allergy, Mild, 06/13/18) AZATHIOPRINE (Verified Allergy, Unknown, 05/15/18) DOCUSATE (Verified Allergy, Unknown, 05/15/18) ok for oral LATEX (Verified Allergy, Unknown, 05/15/18) VANCOMYCIN (Verified Allergy, Unknown, 05/15/18) BISACODYL (Verified Adverse Reaction, Severe, Rash, 05/15/18) Uncoded Allergies: IODINE CONTRAST (Allergy, Unknown, 05/15/18) TAPE (Allergy, Unknown, 05/15/18) Medication History Scheduled Amoxicillin/Potassium Clav 875-125 Mg Tab* (Amox Tr-K Clv 875-125 Mg Tab*), 1 TAB ORAL TWICE A DAY, (Reported) Aripiprazole* (Abilify*), 2.5 MG ORAL DAILY, (Reported) Doxycycline Monohydrate (Monodox), 100 MG PO TWICE A DAY, (Reported) Fluconazole (Fluconazole), 100 MG ORAL DAILY, (Reported) Fluoxetine Hcl* (Prozac*), 20 MG ORAL DAILY, (Reported) Nystatin (Nystatin), 30 GM TP TWICE A DAY, (Reported) Omeprazole Magnesium (Prilosec Otc), 20 MG ORAL DAILY, (Reported) Scheduled PRN Lorazepam* (Ativan*), 1 MG ORAL QID PRN for For Anxiety, (Reported) Oxycodone/Acetaminophen 5-325* (Percocet 5-325 Mg Tablet*), 1 TAB ORAL Q6HR PRN for Breakthrough Pain, (Reported) Miscellaneous Medications Unable to Obtain Medications (Unable To Obtain Meds), (Reported) Patient History History Provided By: Patient Healthcare decision maker Resuscitation status Full Code Advanced Directive on File Review of Systems ROS Narrative Constitutional: Reports: chills, fever Eye: Denies: eye pain ENT: Denies: ear pain Respiratory: Denies: cough, orthopnea Cardiovascular: Denies: chest pain, edema Gastrointestinal: Denies: abdominal pain, constipation Genitourinary: Denies: discharge Musculoskeletal: Denies: back pain, c/o R axillary pain and drainage Skin: Denies: rash Psychiatric: Reports: depressed feelings Neurological: Denies: headache Physical Exam Last 24 Hour Vital Signs Date Time Temp Pulse Resp B/P (MAP) Pulse Ox O2 Delivery O2 Flow Rate FiO2 09/18/18 16:00 98.2 78 16 114/68 (83) 97 09/18/18 12:45 97.7 83 18 113/67 (82) 96 09/18/18 12:00 97.7 83 18 113/67 (82) 96 09/18/18 09:42 97.9 09/18/18 09:35 Room Air 09/18/18 08:00 97.9 83 18 114/66 (82) 99 09/18/18 04:00 97.6 68 18 109/65 (80) 92 09/18/18 00:00 96.4 75 17 103/66 (78) 90 09/17/18 22:14 Room Air 09/17/18 22:14 98.1 62 17 112/70 (84) 97 09/17/18 21:50 98.1 16 103/74 97 Room Air 09/17/18 21:50 98.1 16 103/74 97 Room Air 09/17/18 21:14 98.1 09/17/18 20:22 98.8 16 103/74 97 Room Air 09/17/18 20:14 98.8 79 16 103/74 (84) 97 Room Air Intake and Output 09/17/18 09/18/18 18:59 06:59 Intake Total 400 ml Balance 400 ml Intake Oral 400 ml # Voids 3 Laboratory Tests Test 09/17/18 20:40 09/18/18 05:28 White Blood Count 10.9 K/UL (4.8-10.8) H 11.5 K/UL (4.8-10.8) H Red Blood Count 4.50 M/UL (4.20-5.40) 4.56 M/UL (4.20-5.40) Hemoglobin 12.4 G/DL (12.0-16.0) 12.7 G/DL (12.0-16.0) Hematocrit 38.0 % (37.0-47.0) 39.9 % (37.0-47.0) Mean Corpuscular Volume 84 FL (80-99) 87 FL (80-99) Mean Corpuscular Hemoglobin 27.7 PG (27.0-31.0) 27.8 PG (27.0-31.0) Mean Corpuscular Hemoglobin Concent 32.8 G/DL (32.0-36.0) 31.8 G/DL (32.0-36.0) L Red Cell Distribution Width 11.8 % (11.6-14.8) 12.5 % (11.6-14.8) Platelet Count 350 K/UL (150-450) 328 K/UL (150-450) Mean Platelet Volume 5.3 FL (6.5-10.1) L 5.5 FL (6.5-10.1) L Neutrophils (%) (Auto) 53.5 % (45.0-75.0) 57.6 % (45.0-75.0) Lymphocytes (%) (Auto) 34.0 % (20.0-45.0) 34.2 % (20.0-45.0) Monocytes (%) (Auto) 10.3 % (1.0-10.0) H 6.0 % (1.0-10.0) Eosinophils (%) (Auto) 1.3 % (0.0-3.0) 1.6 % (0.0-3.0) Basophils (%) (Auto) 1.0 % (0.0-2.0) 0.6 % (0.0-2.0) Prothrombin Time 9.6 SEC (9.30-11.50) Prothromb Time International Ratio 0.9 (0.9-1.1) Activated Partial Thromboplast Time 25 SEC (23-33) Sodium Level 140 MMOL/L (136-145) 138 MMOL/L (136-145) Potassium Level 3.9 MMOL/L (3.5-5.1) 4.3 MMOL/L (3.5-5.1) Chloride Level 106 MMOL/L (98-107) 106 MMOL/L (98-107) Carbon Dioxide Level 29 MMOL/L (21-32) 26 MMOL/L (21-32) Anion Gap 5 mmol/L (5-15) 6 mmol/L (5-15) Blood Urea Nitrogen 14 mg/dL (7-18) 15 mg/dL (7-18) Creatinine 0.9 MG/DL (0.55-1.30) 0.8 MG/DL (0.55-1.30) Estimat Glomerular Filtration Rate > 60 mL/min (>60) > 60 mL/min (>60) Glucose Level 97 MG/DL (74-106) 91 MG/DL (74-106) Calcium Level 8.2 MG/DL (8.5-10.1) L 8.6 MG/DL (8.5-10.1) Total Bilirubin 0.1 MG/DL (0.2-1.0) L Aspartate Amino Transf (AST/SGOT) 12 U/L (15-37) L Alanine Aminotransferase (ALT/SGPT) 25 U/L (12-78) Alkaline Phosphatase 64 U/L (46-116) Total Protein 7.0 G/DL (6.4-8.2) Albumin 2.9 G/DL (3.4-5.0) L Globulin 4.1 g/dL Albumin/Globulin Ratio 0.7 (1.0-2.7) L Height (Feet): 5 Height (Inches): 5.00 Weight (Pounds): 186 Medications Current Medications Medications (Trade) Dose Ordered Sig/Alix Route PRN Reason Start Time Stop Time Status Last Admin Dose Admin Acetaminophen (Tylenol) 650 mg Q4H PRN ORAL fever 09/17/18 21:15 10/17/18 21:14 Aripiprazole (Abilify) 2.5 mg DAILY ORAL 09/18/18 09:00 10/18/18 08:59 09/18/18 09:11 Ceftriaxone Sodium 1 gm/ Dextrose 50 ml @ 100 mls/hr Q24H IVPB 09/18/18 15:00 09/25/18 14:59 09/18/18 15:45 Daptomycin 500 mg/ Sodium Chloride 50 ml @ 100 mls/hr Q24H IV 09/18/18 15:00 09/25/18 14:59 09/18/18 15:45 Dextrose (Dextrose 50%) 25 ml Q30M PRN IV Hypoglycemia 09/17/18 21:15 10/17/18 21:14 Dextrose (Dextrose 50%) 50 ml Q30M PRN IV Hypoglycemia 09/17/18 21:15 10/17/18 21:14 Dextrose/Sodium Chloride 1,000 ml @ 75 mls/hr [id number] IV 09/18/18 18:30 10/18/18 18:29 Diphenhydramine HCl (Benadryl) 25 mg Q6H PRN IVP Itching 09/18/18 10:45 10/18/18 10:44 09/18/18 16:47 Famotidine (Pepcid) 20 mg BID ORAL 09/18/18 09:00 10/18/18 08:59 09/18/18 17:48 Fluoxetine HCl (PROzac) 20 mg DAILY ORAL 09/18/18 09:00 10/18/18 08:59 09/18/18 09:11 Heparin Sodium (Porcine) (Heparin 5000 units/ml) 5,000 units EVERY 12 HOURS SUBQ 09/18/18 09:00 10/18/18 08:59 09/18/18 09:12 Hydromorphone HCl (Dilaudid) 1 mg Q4H PRN IVP Moderate Pain (Pain Scale 4-6) 09/17/18 21:15 09/24/18 21:14 Hydromorphone HCl (Dilaudid) 2 mg Q4H PRN IVP Severe Pain (Pain Scale 7-10) 09/17/18 21:15 09/24/18 21:14 09/18/18 14:06 Lorazepam (Ativan) 1 mg Q6H PRN ORAL For Anxiety 09/17/18 21:15 09/24/18 21:14 Magnesium Hydroxide (Mom) 30 ml HSPRN PRN ORAL Constipation 09/17/18 21:15 10/17/18 21:14 Ondansetron HCl (Zofran) 4 mg Q6H PRN IVP Nausea & Vomiting 09/17/18 21:15 10/17/18 21:14 Objective Narrative General Appearance: moderate distress 2/2 pain, alert HEENT: normocephalic, atraumatic, anicteric Neck: normal alignment, supple, normal inspection Respiratory/Chest: chest wall non-tender, lungs clear, normal breath sounds, no respiratory distress Cardiovascular/Chest: normal peripheral pulses, normal rate Abdomen: normal bowel sounds, non tender, soft Extremities: non-tender, other - R axiallary with packing in place, TTP 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 #History of hidradenitis suppurativa with recent R axilla drainage at OSH, #Right axillary pain and drainage, concern for infection and possible recurrence of abscess. -admit to medical service -continue Daptomycin and ceftriaxone as recommended by ID -Plastic Surgery and pain management consulted, patient may require I&D -Continue current pain regimen -monitor CBC and BMP Medical clearance for possible surgical intervention for hidradenitis Based on the patient's medical history, and other available ancillary data, the patient is a LOW risk for an INTERMEDIATE risk procedure. Per the most recent ACC/AHA guidelines, the patient does not need any further cardiopulmonary testing prior to the procedure and there do not appear to be any clear medical contraindications to proceeding with the proposed procedure. Post operative recommendations include: - Encourage mobilization/ambulation - Encourage incentive spirometry to optimize pulmonary hygiene - DVT/GI prophylaxis as appropriate - Pain control and supportive care #Anxiety -home meds restarted #History of Crohn's on Remicade -Remicade on hold for now -continue to monitor Code status Full I spent 75 min on this patients care, and 40 min was dedicated to counseling and /or care coordination VTE PPx scd Full Code Celeste Jeronimo MD Sep 18, 2018 18:26
[2018-09-18] MEDS: D5 1/2NS 1,000 ML IV SCH (18:34)
[2018-09-18] MEDS ORDERED: REMICADE10 MG IV (18:35)
--- NOTE | 2018-09-18 21:45 | Consultation ---
DATE OF CONSULTATION: 09/18/2018 INFECTIOUS DISEASE CONSULTATION CONSULTING PHYSICIAN: Niya Holley M.D. ATTENDING PHYSICIAN: Mary Cabrera M.D. REFERRING PHYSICIAN: Celeste Schuster M.D. REASON FOR CONSULTATION: Right axilla abscess/cellulitis, infected hidradenitis with wound infection, and mild leukocytosis. CHIEF COMPLAINT: The patient's chief complaint coming into the hospital is right axilla abscess. HISTORY OF PRESENT ILLNESS: This is a very pleasant 23-year-old female with a history of hidradenitis suppurativa, who had surgery in the past of her left axilla and was treated with antibiotics and had this debridement. The patient presented to an outside facility emergency room with the right axilla what sounds like an abscess and was drained there. The patient has persistent severe right axilla pain. Currently, she has right axilla abscess, cellulitis, infected hidradenitis suppurativa, mild leukocytosis, likely infected wound with hidradenitis suppurativa, and pain of the right axilla. Infectious Disease consultation was requested for antibiotic management. The patient is allergic to vancomycin and is also on an antidepressant, which prevents me from using linezolid. The patient will be placed on daptomycin and Rocephin. The patient to be seen by Surgery for possible further debridement of the right axilla abscess and also infected hidradenitis suppurativa. REVIEW OF SYSTEMS: CONSTITUTIONAL: She has no fever, chills, or night sweats. HEAD AND NECK: No head pain or neck pain. CARDIAC: No chest pain. GASTROINTESTINAL: No nausea, vomiting, or diarrhea. GENITOURINARY: No dysuria or frequency. PULMONARY: No congestion or shortness of breath. SKIN: No rash. EXTREMITIES: She has right axilla pain. NEUROLOGIC: No seizures. PAST MEDICAL HISTORY: The patient's past medical history includes the following: The patient has a past medical history of Crohn's disease, history of anxiety and depression, history of hidradenitis suppurativa requiring surgery and antibiotics, and history of anemia. No history of diabetes or hypertension. MEDICATIONS: Upon reviewing the [facility] medication list, she is on the following medications: She is on acetaminophen. She is on Abilify, daptomycin, Rocephin, famotidine, fluoxetine, heparin, hydromorphone, lorazepam, magnesium hydroxide, and Zofran. Outside medications were noted and reconciliated. ALLERGIES: Include azathioprine, bisacodyl, docusate, iodine contrast, latex, Silver tape, and vancomycin. SOCIAL HISTORY: Negative for smoking, alcohol, or drug abuse. FAMILY HISTORY: Noncontributory. PHYSICAL EXAMINATION: VITAL SIGNS: Temperature is 97.7, pulse rate 83, respiratory rate is 18, blood pressure 130/67, and saturation 96%. GENERAL: Alert and responsive, in no acute distress. HEAD AND NECK: Oral exam, no thrush. Eye exam, no icterus. Neck is supple. No JVD. Normocephalic. HEART: Regular. No gallop or murmur. ABDOMEN: Soft. Positive bowel sounds. Nontender. LUNGS: Clear bilaterally. No rhonchi or rales. SKIN: No rash. MUSCULOSKELETAL: No effusion. Legs are without cellulitis. PERIPHERAL VASCULAR: No cyanosis. No central line. GENITOURINARY: No Simmons. LINE SITES: Without phlebitis. EXTREMITIES: Right axilla exam was done with the nurse in the room and it shows what looks is very painful on palpation with some induration consistent with right axilla abscess and cellulitis. NEUROLOGIC: Intact. Oriented x3. LABORATORY DATA: Laboratory data is as follows: The patient's white count is mildly elevated. White count is 11.5 and hemoglobin 12.7. The patient's creatinine is 0.8. Cultures and imaging pending. ASSESSMENT AND PLAN: 1. The patient has right axilla abscess/cellulitis status post incision and drainage at an outside emergency room. The patient has persistent pain of the right axilla with abscess and cellulitis status post incision and drainage. The patient likely has infected hidradenitis suppurativa and wound infection. The patient to be seen by surgery, Dr. Brambila. We will continue antibiotics. The patient to be seen by Dr. Brambila from Surgery for possible further debridement. Continue daptomycin and Rocephin. Because of allergy to vancomycin, we will use daptomycin and Rocephin for gram-positive and gram-negative coverage. The patient again to be seen by Surgery. We will follow up on cultures if surgery is done. We will monitor the patient clinically and monitor her pain and white count. Continue daptomycin and Rocephin for right axilla abscess/cellulitis, infected hidradenitis suppurativa, and wound infection. Case is also discussed with Dr. Celeste Schuster and Dr. Brambila. 2. Anxiety. 3. Depression. 4. Hidradenitis suppurativa with history of surgery and antibiotics. 5. Crohn's disease. 6. Anemia. 7. Allergies to azathioprine, bisacodyl, docusate, iodine contrast, latex, Silver tape, and vancomycin. 8. MAR was noted. 9. Case was discussed with RN. 10. Family history is noncontributory. 11. Social history is negative. 12. Continue treatment per primary consultants. Niya Holley M.D. DR: VARGHESE JOB#: [id number] CC: QUENTIN
--- NOTE | 2018-09-18 22:30 | Consultation ---
DATE OF CONSULTATION: 09/18/2018 ADMITTING DIAGNOSIS: Right axillary pain and abscess. HISTORY OF PRESENT ILLNESS: This is a 23-year-old patient of mine, who has a history of Crohn's disease and hidradenitis suppurativa, who recently underwent radical excision and reconstruction of the left axillary hidradenitis disease. She is approximately nearly 4 months out from reconstruction of the left axilla. She recently presented with right axillary pain to an outside emergency room where they performed an ultrasound and drainage. She had very mild relief and she contacted me and endorsed that her pain was much more significant and severe despite the attended drainage at the outside facility and I instructed her to present to the emergency room for her increasing in severe pain. She was seen by the emergency room physician and was admitted by the medical team due to the severity of her pain and the presence of the infection/abscess in the right arm. PAST MEDICAL HISTORY: Significant for Crohn's disease and hidradenitis suppurativa. PAST SURGICAL HISTORY: Significant for previous resection and reconstruction of left axillary hidradenitis. MEDICATIONS: Include antibiotics as well as Remicade, which she receives for her Crohn's disease every 8 weeks. PHYSICAL EXAMINATION: GENERAL: The patient is in mild distress secondary to right axillary pain. However, she is alert and oriented x3. HEART: Regular rate and rhythm. ABDOMEN: Soft, nontender, and nondistended. Mildly obese. EXTREMITIES: Examination of her trunk and extremities reveals a very exquisitely tender fluctuant area over the central aspect of her right axilla that is very small 2 mm opening from the previous I and D with packing that was present. The area as stated has significant tenderness with some surrounding cellulitis. Her white blood cell count is 11.5. ASSESSMENT AND PLAN: This is a 23-year-old female with a history of Crohn's disease and hidradenitis suppurativa, who presented to the emergency room with significant pain associated with the right axillary abscess. She had a previous attempt at an outside facility for drainage of this, however, the opening is quite small and the patient continues to have significant pain. As such upon my evaluation, given the presence of the white count, she will be taken to the operating room for formal wound exploration and debridement and drainage of the area. Likely, the wound will be left open to allow for healing of the wound with secondary intention. This will be performed tomorrow morning. She is currently on IV antibiotics and being seen by the Infectious Disease team. Sagar Brambila M.D. DR: DIANA JOB#: [id number] CC:
[2018-09-19] VITALS (18 sets, daily range): BP systolic 99–121; BP diastolic 55–69
[2018-09-19] MEDS: DiphenhydrAMINE 50mg/ml Inj IVP PRN ×3 (05:11→20:43)
[2018-09-19 05:15] LABS: BASOPHILS % (AUTO) 0.8 % (0.0-2.0); EOSINOPHILS % (AUTO) 1.7 % (0.0-3.0); HEMATOCRIT 36.8 % (37.0-47.0); HEMOGLOBIN 11.9 G/DL (12.0-16.0); LYMPHOCYTES % (AUTO) 35.2 % (20.0-45.0); MEAN CORPUSCULAR VOLUME 87 FL (80-99); MONOCYTES % (AUTO) 10.8 % (1.0-10.0); NEUTROPHILS % (AUTO) 51.6 % (45.0-75.0); PLATELET COUNT 312 K/UL (150-450); RED BLOOD COUNT 4.24 M/UL (4.20-5.40); RED CELL DISTRIBUTION WIDTH 12.5 % (11.6-14.8); WHITE BLOOD COUNT 10.3 K/UL (4.8-10.8)
[2018-09-19 05:45] LABS: ALANINE AMINOTRANSFERASE 25 U/L (12-78); ALBUMIN 2.5 G/DL (3.4-5.0); ALBUMIN/GLOBULIN RATIO 0.7 (1.0-2.7); ALKALINE PHOSPHATASE 53 U/L (46-116); ANION GAP 3 mmol/L (5-15); BILIRUBIN,TOTAL 0.2 MG/DL (0.2-1.0); BLOOD UREA NITROGEN 12 mg/dL (7-18); CALCIUM 8.2 MG/DL (8.5-10.1); CARBON DIOXIDE 30 MMOL/L (21-32); CHLORIDE 104 MMOL/L (98-107); CREATININE 0.9 MG/DL (0.55-1.30); POTASSIUM 4.3 MMOL/L (3.5-5.1); SODIUM 137 MMOL/L (136-145)
[2018-09-19 06:28] LABS: ASPARTATE AMINO TRANSFERASE 16 U/L (15-37)
[2018-09-19] MEDS: D5 1/2NS 1,000 ML IV SCH ×2 (06:31→23:56)
[2018-09-19 06:50] LABS: CREATINE KINASE 51 U/L (26-308)
[2018-09-19] MEDS ORDERED: Midazolam 2mg/2ml Inj ONE (07:02)
[2018-09-19] MEDS ORDERED: fentaNYL 100 mcg/2 mL IV ONE (07:02)
[2018-09-19] MEDS ORDERED: Propofol 200mg/20ml IV ONE (07:03)
[2018-09-19] MEDS ORDERED: Ketorolac 30mg Inj ONE (07:03)
[2018-09-19] MEDS ORDERED: Lidocaine 1% 10mg/ml/Epi 0.005mg/ml 30ml vial INJ ONE (07:16)
[2018-09-19] MEDS ORDERED: Bacitracin 50000 Units Vial ONE (07:16)
[2018-09-19] MEDS ORDERED: NeoSporin Gu Irrig 1ml Amp IRRIG ONE (07:16)
[2018-09-19] MEDS ORDERED: TransDerm Scop 1.5mg/72HR Patch TDERMAL ONE (07:26)
[2018-09-19] MEDS ORDERED: NS Irrig 1000ml ONE (07:30)
[2018-09-19] MEDS ORDERED: LR 1000ml ONE (07:30)
[2018-09-19] MEDS ORDERED: Sterile Water Irrig 1000ml IRRIG ONE (07:30)
--- NOTE | 2018-09-19 07:31 | Pre-Procedure Note/Attestation ---
Pre-Procedure Note/Attestation Complete Prior to Procedure Planned Procedure: right Procedure Narrative: Right axillary wound exploration Attestation I attest that I discussed the nature of the procedure; its benefits; risks and complications; and alternatives (and the risks and benefits of such alternatives ), prior to the procedure, with the patient (or the patient's legal clearance representative). I attest that, if there was a reasonable possibility of needing a blood transfusion, the patient (or the patient's legal clearance representative) was given the [facility] standardized written summary, pursuant to the Ishan Eli Blood Safety Act ([place] Health and Safety Code # 1645, as amended). I attest that I re-evaluated the patient just prior to the surgery and that there has been no change in the patient's H&P, except as documented below: Sagar Brambila MD Sep 19, 2018 07:31
[2018-09-19] MEDS ORDERED: Zolpidem 5mg tab ORAL PRN (07:45)
[2018-09-19] MEDS ORDERED: PCA Education Pamphlet MISC ONE (07:45)
[2018-09-19] MEDS ORDERED: PCA HYDROmorphone 1mg/ml 30 ML IV PRN (07:45)
[2018-09-19] MEDS ORDERED: Rate Change PCA 1 Each MISC PRN (07:45)
[2018-09-19] MEDS ORDERED: Morphine Sulfate 10mg/ml Inj ONE (08:10)
[2018-09-19] MEDS ORDERED: NS Irrig 1000ml IRRIG ONE (08:14)
[2018-09-19] MEDS ORDERED: Surgicel 4in x 8in TOPIC ONE (08:16)
--- NOTE | 2018-09-19 08:24 | Anethesia Preoperative Eval ---
Anesthesia Pre-op PMH/ROS General Date of Evaluation: Sep 19, 2018 Time of Evaluation: 07:15 Anesthesiologist: Mariola ASA Score: ASA 2 Mallampati Score Class I : Soft palate, uvula, fauces, pillars visible Class II: Soft palate, uvula, fauces visible Class III: Soft palate, base of uvula visible Class IV: Only hard plate visible Mallampati Classification: Class II Surgeon: Patty Diagnosis: Recurret HS Surgical Procedure: Excision of R axillary HS Anesthesia History: PONV Family History: no anesthesia problems Allergies: Coded Allergies: SILVER (Verified Allergy, Mild, 06/13/18) AZATHIOPRINE (Verified Allergy, Unknown, 05/15/18) DOCUSATE (Verified Allergy, Unknown, 05/15/18) ok for oral LATEX (Verified Allergy, Unknown, 05/15/18) VANCOMYCIN (Verified Allergy, Unknown, 05/15/18) BISACODYL (Verified Adverse Reaction, Severe, Rash, 05/15/18) Uncoded Allergies: IODINE CONTRAST (Allergy, Unknown, 05/15/18) TAPE (Allergy, Unknown, 05/15/18) Medications: see eMAR Patient NPO?: Yes NPO Date: Sep 19, 2018 NPO Time: 0000 Past Medical History Cardiovascular: Denies: HTN, CAD, [place], valve dz, arrhythmia, other Pulmonary: Denies: asthma, COPD, INDIRA, other Gastrointestinal/Genitourinary: Reports: GERD; Denies: CRI, ESRD, other Neurologic/Psychiatric: Reports: depression/anxiety, other - chronic pain; Denies: dementia, CVA, TIA Endocrine: Denies: DM, hypothyroidism, steroids, other HEENT: Denies: cataract (L), cataract (R), glaucoma, [place] (L), [place] (R), other Hematology/Immune: Reports: anemia - mild; Denies: DVT, bleeding disorder, other Musculoskeletal/Integumentary: Reports: other - Recurrent HS Other: other - overweight PMH Narrative: as above PSxH Narrative: Surgical treatment for recurrent HS Anesthesia Pre-op Phys. Exam Physician Exam Last Vital Signs Date Time Temp Pulse Resp B/P (MAP) Pulse Ox O2 Delivery O2 Flow Rate FiO2 09/19/18 04:00 98.4 71 18 106/59 (75) 97 09/18/18 21:00 Room Air Constitutional: NAD Neurologic: CN 2-12 intact Cardiovascular: RRR, no M/R/G Respiratory: CTA Gastrointestinal: S/NT/ND Airway Exam Mallampati Score: Class II MO: limited Neck: fexble ROM: full Teeth: intact Dentures: no upper, no lower Anesthesia Pre-op A/P Labs Hematology Test 09/19/18 04:45 White Blood Count 10.3 K/UL (4.8-10.8) Red Blood Count 4.24 M/UL (4.20-5.40) Hemoglobin 11.9 G/DL (12.0-16.0) L Hematocrit 36.8 % (37.0-47.0) L Mean Corpuscular Volume 87 FL (80-99) Mean Corpuscular Hemoglobin 28.0 PG (27.0-31.0) Mean Corpuscular Hemoglobin Concent 32.2 G/DL (32.0-36.0) Red Cell Distribution Width 12.5 % (11.6-14.8) Platelet Count 312 K/UL (150-450) Mean Platelet Volume 5.7 FL (6.5-10.1) L Neutrophils (%) (Auto) 51.6 % (45.0-75.0) Lymphocytes (%) (Auto) 35.2 % (20.0-45.0) Monocytes (%) (Auto) 10.8 % (1.0-10.0) H Eosinophils (%) (Auto) 1.7 % (0.0-3.0) Basophils (%) (Auto) 0.8 % (0.0-2.0) Chemistry Test 09/19/18 04:45 Sodium Level 137 MMOL/L (136-145) Potassium Level 4.3 MMOL/L (3.5-5.1) Chloride Level 104 MMOL/L (98-107) Carbon Dioxide Level 30 MMOL/L (21-32) Anion Gap 3 mmol/L (5-15) L Blood Urea Nitrogen 12 mg/dL (7-18) Creatinine 0.9 MG/DL (0.55-1.30) Estimat Glomerular Filtration Rate > 60 mL/min (>60) Glucose Level 101 MG/DL (74-106) Calcium Level 8.2 MG/DL (8.5-10.1) L Total Bilirubin 0.2 MG/DL (0.2-1.0) Aspartate Amino Transf (AST/SGOT) 16 U/L (15-37) Alanine Aminotransferase (ALT/SGPT) 25 U/L (12-78) Alkaline Phosphatase 53 U/L (46-116) Total Creatine Kinase 51 U/L (26-308) Total Protein 6.3 G/DL (6.4-8.2) L Albumin 2.5 G/DL (3.4-5.0) L Globulin 3.8 g/dL Albumin/Globulin Ratio 0.7 (1.0-2.7) L Risk Assessment & Plan Assessment: ASA 2 Plan: GA with LMA Status Change Before Surgery: No Pre-Antibiotics Drug: Ancef 1gr Given Within 1 Hr of Incision: Yes Time Given: 07:56 Baudilio Garnett MD Sep 19, 2018 08:24
--- NOTE | 2018-09-19 08:27 | Operative Note - PDOC ---
Operative Note Operative Note Pre-op Diagnosis: Right axillary abscess Procedure: Right axillary wound exploration and debridement Post-op Diagnosis: Same Surgeon: Patty Order Entry Clerk: Ava Anesthesia: general Specimen: yes Complications: none Condition: stable Estimated Blood Loss: minimal Drains: none Implant(s) used?: No Sagar Brambila MD Sep 19, 2018 08:27
[2018-09-19] MEDS ORDERED: Meperidine 50mg/ml Inj(FOR RIGORS ONLY) ONE (08:39)
[2018-09-19] MEDS ORDERED: LR 1000ml 1,000 ML IVLG SCH (08:40)
[2018-09-19] MEDS ORDERED: Meperidine 50mg/ml Inj(FOR RIGORS ONLY) IV PRN (08:45)
[2018-09-19] MEDS ORDERED: Ketorolac 30mg Inj IV PRN (08:45)
[2018-09-19] MEDS ORDERED: TransDerm Scop 1.5mg/72HR Patch TDERMAL SCH (08:45)
[2018-09-19] MEDS ORDERED: Metoclopramide 10mg/2ml Inj IVP PRN (08:45)
[2018-09-19] MEDS ORDERED: Midazolam 2mg/2ml Inj IVP PRN (08:45)
[2018-09-19] MEDS: Heparin 5000 units/ml inj SUBQ SCH ×2 (09:00→20:44)
[2018-09-19] MEDS ORDERED: DiphenhydrAMINE 50mg/ml Inj IVP SCH (09:15)
--- NOTE | 2018-09-19 10:30 | Operative Note - Dictated ---
DATE OF OPERATION: 09/19/2018 PREOPERATIVE DIAGNOSIS: Right axillary abscess with hidradenitis suppurativa. POSTOPERATIVE DIAGNOSIS: Right axillary abscess with hidradenitis suppurativa. PROCEDURES: 1. Exploration of right axillary wound, status post previous drainage. 2. Debridement of right axillary tissue with excision of hidradenitis suppurativa. SURGEON: Sagar Brambila M.D. NEEDLE MOLDER: Enzo Escalante M.D. ANESTHESIA: General. COMPLICATIONS: None. DRAINS: None. SPECIMEN: Included right axillary tissue. INDICATIONS FOR SURGERY: This is a 23-year-old female with a long-standing history of Crohn disease and hidradenitis suppurativa, who is approximately four and a half months out from left axillary hidradenitis excision and reconstruction, who had presented to an outside emergency room with extreme pain under her right axilla. At the outside facility, she underwent a small drainage procedure with minimal to no improvement of symptoms. She re-presented to the emergency room here at [facility] with continued pain, tenderness and redness around the region of the attempted drainage procedure. Upon my exam, she was quite tender all around the axilla with some cellulitis as well. Given this, I felt that it was appropriate for her to be on IV antibiotics with an exploration of the wound and the debridement with possible staged reconstruction. She understood the risks and benefits of surgery and agreed to proceed. DETAILS OF THE OPERATION: The patient was brought to the operating room and laid in the supine position on the operating table. Her right axilla and right upper arm were prepped and draped in a sterile and usual fashion. We first began by taking cultures of the purulent fluid exuding from the drainage site. These were sent for aerobic, anaerobic, and fungal studies. The incision that had been made to drain the wound was only about 3 mm as such a much larger area that measured approximately 5 x 2 cm was created as an ellipse to allow for full exposure and exploration of the wound as well as debridement of the underlying tissue. Once the dominguez were made, a 15 blade was used to make elliptical incision. Immediately upon entering the wound, we noticed that there was evidence of granulation tissue consistent with a deep abscess seen in the setting of hidradenitis suppurativa. We continued to make the skin incision completed and then used electrocautery to remove all the granulation tissue at the base of the abscess down to the axillary fat. Once this was completely excised, we noted that there was some edges that had some granulation tissue as well at the skin level. These were all debrided as well. This resulted in a defect that measured approximately 6 x 5 cm. Once the debridement was complete and following this we performed pulse lavage irrigation and achieved hemostasis. Given the size of the wound, we felt likely local adjacent tissue transfer would be necessary to allow for a tension-free repair. However, given the fact that this was in the setting of an active infection and abscess, definitive closure will not be performed at this time. The wound will be packed, the cultures will be followed and we will plan to potentially closing the wound in the next 48 to 72 hours depending on the overall clinical condition of the patient and the overall aspect of the wound. The patient tolerated the procedure well. There was no complications. All sponge counts were correct at the end of case. Sagar Brambila M.D. DR: MAICO JOB#: [id number] CC: QUENTIN
[2018-09-19] MEDS ORDERED: Naloxone 0.4mg/ml Inj IV PRN (11:00)
[2018-09-19] MEDS: cefTRIAXone 1 GM in D5W 50 ML IVPB SCH (13:52)
[2018-09-19] MEDS: DAPTOmycin 500 MG in NS 50 ML IV SCH (15:27)
--- NOTE | 2018-09-19 17:38 | General Progress Note ---
Assessment/Plan Assessment/Plan: 22 year old female with PMH of Crohns disease, anxiety and hidradenitis suppurativa presents with pain in R axilla region with open wound with drainage. #History of hidradenitis suppurativa with recent R axilla drainage at OSH, #Right axillary pain and drainage, concern for infection and possible recurrence of abscess. #S/P Exploration of right axillary wound, Debridement of right axillary tissue POD #0 -continue Daptomycin and ceftriaxone as recommended by ID -Plastic Surgery consult appreciated -Pain management consult appreciated -Cont Dilaudid RETAIL SPECIALIST per pain management -monitor CBC and BMP -encourage incentive spirometer -scd for DVT until cleared by surgery for heparin sq -encouraged ambulation #Anxiety -home meds restarted #History of Crohn's on Remicade -Remicade on hold for now -continue to monitor Code status Full I spent 75 min on this patients care, and 40 min was dedicated to counseling and /or care coordination VTE PPx scd Full Code Subjective Date patient seen: Sep 19, 2018 ROS Limited/Unobtainable: No Allergies: Coded Allergies: SILVER (Verified Allergy, Mild, 06/13/18) AZATHIOPRINE (Verified Allergy, Unknown, 05/15/18) DOCUSATE (Verified Allergy, Unknown, 05/15/18) ok for oral LATEX (Verified Allergy, Unknown, 05/15/18) VANCOMYCIN (Verified Allergy, Unknown, 05/15/18) BISACODYL (Verified Adverse Reaction, Severe, Rash, 05/15/18) Uncoded Allergies: IODINE CONTRAST (Allergy, Unknown, 05/15/18) TAPE (Allergy, Unknown, 05/15/18) All Systems: reviewed and negative except above Subjective Pt seen at bedside, post-op, complaining of post-op pain, on dilaudid RETAIL SPECIALIST with breakthrough. Otherwise no other complaints, pt denies SOB, nausea, vomiting, abdominal complaints or urinary compliaints Objective Last 24 Hour Vital Signs Date Time Temp Pulse Resp B/P (MAP) Pulse Ox O2 Delivery O2 Flow Rate FiO2 09/19/18 16:00 98.7 88 17 111/55 (73) 98 09/19/18 16:00 17 09/19/18 12:50 98.1 90 16 103/58 (73) 98 09/19/18 12:00 17 09/19/18 11:50 98.4 89 15 99/57 (71) 99 09/19/18 11:15 16 09/19/18 10:50 98.7 89 16 102/58 (73) 98 09/19/18 10:34 16 09/19/18 10:20 98.5 84 17 119/66 (83) 98 09/19/18 10:00 Nasal Cannula 3.0 09/19/18 09:50 98.2 103 16 121/66 (84) 98 09/19/18 09:45 20 09/19/18 09:38 97.2 89 17 103/61 100 Nasal Cannula 3 09/19/18 09:30 18 09/19/18 09:30 84 15 104/65 100 Nasal Cannula 3 09/19/18 09:20 85 14 107/67 100 Simple Mask 6 09/19/18 09:15 21 09/19/18 09:15 86 16 104/68 100 Simple Mask 6 09/19/18 09:15 97.1 09/19/18 09:15 97.1 09/19/18 09:10 87 18 115/68 100 Simple Mask 6 09/19/18 09:00 92 21 110/66 100 Simple Mask 6 09/19/18 08:56 21 09/19/18 08:50 99 25 106/64 99 Simple Mask 6 09/19/18 08:45 111 22 110/66 99 Simple Mask 6 09/19/18 08:40 97.1 110 19 113/62 99 Simple Mask 6 09/19/18 04:00 98.4 71 18 106/59 (75) 97 09/19/18 03:41 98.4 09/19/18 00:00 98.4 76 17 109/67 (81) 96 09/18/18 21:00 Room Air 09/18/18 20:00 98.7 95 19 119/76 (90) 96 Intake and Output 09/18/18 09/19/18 19:00 07:00 Intake Total 500 ml 1425 ml Balance 500 ml 1425 ml Intake Oral 500 ml 600 ml IV Total 825 ml # Voids 4 Laboratory Tests 09/19/18 04:45: White Blood Count 10.3, Red Blood Count 4.24, Hemoglobin 11.9L, Hematocrit 36.8L , Mean Corpuscular Volume 87, Mean Corpuscular Hemoglobin 28.0, Mean Corpuscular Hemoglobin Concent 32.2, Red Cell Distribution Width 12.5, Platelet Count 312, Mean Platelet Volume 5.7L, Neutrophils (%) (Auto) 51.6, Lymphocytes ( %) (Auto) 35.2, Monocytes (%) (Auto) 10.8H, Eosinophils (%) (Auto) 1.7, Basophils (%) (Auto) 0.8, Sodium Level 137, Potassium Level 4.3, Chloride Level 104, Carbon Dioxide Level 30, Anion Gap 3L, Blood Urea Nitrogen 12, Creatinine 0.9, Estimat Glomerular Filtration Rate > 60, Glucose Level 101, Calcium Level 8.2L, Total Bilirubin 0.2, Aspartate Amino Transf (AST/SGOT) 16, Alanine Aminotransferase (ALT/SGPT) 25, Alkaline Phosphatase 53, Total Creatine Kinase 51, Total Protein 6.3L, Albumin 2.5L, Globulin 3.8, Albumin/Globulin Ratio 0.7L Height (Feet): 5 Height (Inches): 5.00 Weight (Pounds): 187 Objective General Appearance: moderate distress 2/2 pain, alert HEENT: normocephalic, atraumatic, anicteric Neck: normal alignment, supple, normal inspection Respiratory/Chest: chest wall non-tender, lungs clear, normal breath sounds, no respiratory distress Cardiovascular/Chest: normal peripheral pulses, normal rate Abdomen: normal bowel sounds, non tender, soft Extremities: non-tender, other - R axillary with dressing CDI, TTP Neurologic: hearing healthcare practitioner II-XII grossly normal, no motor/sensory deficits, alert, oriented x 3 Celeste Jeronimo MD Sep 19, 2018 17:38
--- NOTE | 2018-09-19 17:46 | General Progress Note ---
Assessment/Plan Assessment/Plan: (1) Right Axillary pain (2) Right axillary abscess with hidradenitis suppurativa (3) S/p Exploration of right axillary wound, status post previous drainage and debridement Patient will be continued on DRILLER BRAKE LINING Dilaudid and Dilaudid breakthrough. D/w Dr. Long and he concurred. Thank you courtesy of this consultation. Subjective Date patient seen: Sep 19, 2018 Time patient seen: 05:30 - pm Constitutional: Reports: no symptoms HEENT: Reports: no symptoms Cardiovascular: Reports: no symptoms Respiratory: Reports: no symptoms Gastrointestinal/Abdominal: Reports: no symptoms Genitourinary: Reports: no symptoms Neurologic/Psychiatric: Reports: no symptoms Endocrine: Reports: no symptoms Hematologic/Lymphatic: Reports: no symptoms Allergies: Coded Allergies: SILVER (Verified Allergy, Mild, 06/13/18) AZATHIOPRINE (Verified Allergy, Unknown, 05/15/18) DOCUSATE (Verified Allergy, Unknown, 05/15/18) ok for oral LATEX (Verified Allergy, Unknown, 05/15/18) VANCOMYCIN (Verified Allergy, Unknown, 05/15/18) BISACODYL (Verified Adverse Reaction, Severe, Rash, 05/15/18) Uncoded Allergies: IODINE CONTRAST (Allergy, Unknown, 05/15/18) TAPE (Allergy, Unknown, 05/15/18) Subjective Patient is a known patient from prior admission and has been admitted under the care of Dr. Cabrera due to right axillary pain due to Right axillary abscess with hidradenitis suppurativa s/p Exploration of right axillary wound, status post previous drainage and debridement of right axillary tissue by Dr. Sagar Brambila. She was started on DRILLER BRAKE LINING Dilaudid 0.2mg lockout interval Q6min using 7.4mg since the surgery and Dilaudid 2mg IV Q4H PRN and Dilaudid 2mg SUQ Q3H PRN. The pain has been stable on the DRILLER BRAKE LINING. She has no new complaints at this time. Objective Last 24 Hour Vital Signs Date Time Temp Pulse Resp B/P (MAP) Pulse Ox O2 Delivery O2 Flow Rate FiO2 09/19/18 16:00 98.7 88 17 111/55 (73) 98 09/19/18 16:00 17 09/19/18 12:50 98.1 90 16 103/58 (73) 98 09/19/18 12:00 17 09/19/18 11:50 98.4 89 15 99/57 (71) 99 09/19/18 11:15 16 09/19/18 10:50 98.7 89 16 102/58 (73) 98 09/19/18 10:34 16 09/19/18 10:20 98.5 84 17 119/66 (83) 98 09/19/18 10:00 Nasal Cannula 3.0 09/19/18 09:50 98.2 103 16 121/66 (84) 98 09/19/18 09:45 20 09/19/18 09:38 97.2 89 17 103/61 100 Nasal Cannula 3 09/19/18 09:30 18 09/19/18 09:30 84 15 104/65 100 Nasal Cannula 3 09/19/18 09:20 85 14 107/67 100 Simple Mask 6 09/19/18 09:15 21 09/19/18 09:15 86 16 104/68 100 Simple Mask 6 09/19/18 09:15 97.1 09/19/18 09:15 97.1 09/19/18 09:10 87 18 115/68 100 Simple Mask 6 09/19/18 09:00 92 21 110/66 100 Simple Mask 6 09/19/18 08:56 21 09/19/18 08:50 99 25 106/64 99 Simple Mask 6 09/19/18 08:45 111 22 110/66 99 Simple Mask 6 09/19/18 08:40 97.1 110 19 113/62 99 Simple Mask 6 09/19/18 04:00 98.4 71 18 106/59 (75) 97 09/19/18 03:41 98.4 09/19/18 00:00 98.4 76 17 109/67 (81) 96 09/18/18 21:00 Room Air 09/18/18 20:00 98.7 95 19 119/76 (90) 96 Intake and Output 09/18/18 09/19/18 19:00 07:00 Intake Total 500 ml 1425 ml Balance 500 ml 1425 ml Intake Oral 500 ml 600 ml IV Total 825 ml # Voids 4 Laboratory Tests 09/19/18 04:45: White Blood Count 10.3, Red Blood Count 4.24, Hemoglobin 11.9L, Hematocrit 36.8L , Mean Corpuscular Volume 87, Mean Corpuscular Hemoglobin 28.0, Mean Corpuscular Hemoglobin Concent 32.2, Red Cell Distribution Width 12.5, Platelet Count 312, Mean Platelet Volume 5.7L, Neutrophils (%) (Auto) 51.6, Lymphocytes ( %) (Auto) 35.2, Monocytes (%) (Auto) 10.8H, Eosinophils (%) (Auto) 1.7, Basophils (%) (Auto) 0.8, Sodium Level 137, Potassium Level 4.3, Chloride Level 104, Carbon Dioxide Level 30, Anion Gap 3L, Blood Urea Nitrogen 12, Creatinine 0.9, Estimat Glomerular Filtration Rate > 60, Glucose Level 101, Calcium Level 8.2L, Total Bilirubin 0.2, Aspartate Amino Transf (AST/SGOT) 16, Alanine Aminotransferase (ALT/SGPT) 25, Alkaline Phosphatase 53, Total Creatine Kinase 51, Total Protein 6.3L, Albumin 2.5L, Globulin 3.8, Albumin/Globulin Ratio 0.7L Height (Feet): 5 Height (Inches): 5.00 Weight (Pounds): 187 General Appearance: no apparent distress, alert EENT: PERRL/EOMI, TMs normal Neck: non-tender, normal alignment Cardiovascular: normal rate, regular rhythm Respiratory/Chest: lungs clear, normal breath sounds Abdomen: non tender, soft Extremities: other - Right UE ROM decreased with bandages and drainage noted Edema: no edema noted Arm (L), no edema noted Arm (R), no edema noted Leg (L), no edema noted Leg (R), no edema noted Pedal (L), no edema noted Pedal (R), no edema noted Generalized Neurologic: alert, oriented x 3 Skin: normal pigmentation Hao Aldana Sep 19, 2018 17:45
[2018-09-19] MEDS: PCA shift volume MISC SCH (19:20)
[2018-09-20] VITALS: BP 99/63
[2018-09-20] MEDS: DiphenhydrAMINE 50mg/ml Inj IVP PRN ×3 (03:39→19:16)
[2018-09-20 04:00] VITALS: BP 107/69
[2018-09-20] MEDS: PCA shift volume MISC SCH ×2 (07:00→19:00)
[2018-09-20 08:00] VITALS: BP 109/72
[2018-09-20] MEDS: Heparin 5000 units/ml inj SUBQ SCH ×2 (08:13→20:50)
--- NOTE | 2018-09-20 09:34 | General Progress Note ---
Assessment/Plan Assessment/Plan: (1) Right Axillary pain (2) Right axillary abscess with hidradenitis suppurativa (3) S/p Exploration of right axillary wound, status post previous drainage and debridement Patient will be continued on BURNER HAND Dilaudid and Dilaudid breakthrough. D/w Dr. Long and he concurred. Subjective Date patient seen: Sep 20, 2018 Time patient seen: 07:00 - am Constitutional: Reports: no symptoms HEENT: Reports: no symptoms Cardiovascular: Reports: no symptoms Respiratory: Reports: no symptoms Gastrointestinal/Abdominal: Reports: no symptoms Genitourinary: Reports: no symptoms Neurologic/Psychiatric: Reports: no symptoms Endocrine: Reports: no symptoms Hematologic/Lymphatic: Reports: no symptoms Allergies: Coded Allergies: SILVER (Verified Allergy, Mild, 06/13/18) AZATHIOPRINE (Verified Allergy, Unknown, 05/15/18) DOCUSATE (Verified Allergy, Unknown, 05/15/18) ok for oral LATEX (Verified Allergy, Unknown, 05/15/18) VANCOMYCIN (Verified Allergy, Unknown, 05/15/18) BISACODYL (Verified Adverse Reaction, Severe, Rash, 05/15/18) Uncoded Allergies: IODINE CONTRAST (Allergy, Unknown, 05/15/18) TAPE (Allergy, Unknown, 05/15/18) Subjective Patient is in bed and showing no signs of pain or distress. Reports that the pain has been tolerated on the Dilaudid BURNER HAND using 13.6mg in the last 24hrs. No new complaints at this time. Objective Last 24 Hour Vital Signs Date Time Temp Pulse Resp B/P (MAP) Pulse Ox O2 Delivery O2 Flow Rate FiO2 09/20/18 04:00 98.8 90 17 107/69 (82) 98 09/20/18 04:00 16 09/20/18 00:00 16 09/20/18 00:00 98.9 80 17 99/63 (75) 96 09/19/18 21:00 Nasal Cannula 3.0 09/19/18 20:00 98.9 93 16 107/69 (82) 97 09/19/18 20:00 16 09/19/18 16:00 98.7 88 17 111/55 (73) 98 09/19/18 16:00 17 09/19/18 12:50 98.1 90 16 103/58 (73) 98 09/19/18 12:00 17 09/19/18 11:50 98.4 89 15 99/57 (71) 99 09/19/18 11:15 16 09/19/18 10:50 98.7 89 16 102/58 (73) 98 09/19/18 10:34 16 09/19/18 10:20 98.5 84 17 119/66 (83) 98 09/19/18 10:00 Nasal Cannula 3.0 09/19/18 09:50 98.2 103 16 121/66 (84) 98 09/19/18 09:45 20 09/19/18 09:38 97.2 89 17 103/61 100 Nasal Cannula 3 Intake and Output 09/19/18 09/20/18 19:00 07:00 Intake Total 2575 ml 1260 ml Output Total 50 ml Balance 2525 ml 1260 ml Intake Oral 1000 ml 360 ml IV Total 1575 ml 900 ml Output Estimated Blood Loss 50 ml # Voids 2 Height (Feet): 5 Height (Inches): 5.00 Weight (Pounds): 187 General Appearance: no apparent distress, alert EENT: PERRL/EOMI, normal ENT inspection Neck: non-tender, normal alignment Cardiovascular: normal rate, regular rhythm Respiratory/Chest: lungs clear, normal breath sounds Abdomen: non tender, soft Extremities: other - bandages on right axilla noted Edema: no edema noted Arm (L), no edema noted Arm (R), no edema noted Leg (L), no edema noted Leg (R), no edema noted Pedal (L), no edema noted Pedal (R), no edema noted Generalized Neurologic: alert, oriented x 3 Skin: normal pigmentation Hao Aldana Sep 20, 2018 09:34
[2018-09-20 10:13] LABS: BASOPHILS % (AUTO) 0.8 % (0.0-2.0); HEMOGLOBIN 11.1 G/DL (12.0-16.0); LYMPHOCYTES % (AUTO) 33.7 % (20.0-45.0); MEAN CORPUSCULAR VOLUME 87 FL (80-99); MONOCYTES % (AUTO) 10.2 % (1.0-10.0); NEUTROPHILS % (AUTO) 53.4 % (45.0-75.0); PLATELET COUNT 287 K/UL (150-450); RED CELL DISTRIBUTION WIDTH 12.1 % (11.6-14.8)
[2018-09-20 10:30] LABS: ANION GAP 3 mmol/L (5-15); BLOOD UREA NITROGEN 7 mg/dL (7-18); CARBON DIOXIDE 30 MMOL/L (21-32); CHLORIDE 106 MMOL/L (98-107); CREATININE 0.9 MG/DL (0.55-1.30); SODIUM 139 MMOL/L (136-145)
--- NOTE | 2018-09-20 11:19 | Immediate Post-Op Evaluation ---
Immediate Post-Op Evalulation Immediate Post-Op Evalulation Procedure: Excision of R axillary HS Date of Evaluation: Sep 19, 2018 Time of Evaluation: 10:12 IV Fluids: 1200 Blood Products: [id number] Estimated Blood Loss: 50 Urinary Output: none Blood Pressure Systolic: 132 Blood Pressure Diastolic: 76 Pulse Rate: 68 Respiratory Rate: 20 O2 Sat by Pulse Oximetry: 98 Temperature (Fahrenheit): 97.6 Pain Score (1-10): 2 Nausea: No Vomiting: No Complications none Patient Status: reacts, patent, none Hydration Status: adequate Baudilio Garnett MD Sep 20, 2018 11:19
--- NOTE | 2018-09-20 11:20 | 48 Hour Post Anesthesia Eval ---
Post Anesthesia Evaluation Procedure: Excision of R axillary HS Date of Evaluation: Sep 20, 2018 Time of Evaluation: 10:02 Blood Pressure Systolic: 109 0: 56 Pulse Rate: 74 Respiratory Rate: 21 Temperature (Fahrenheit): 97.6 O2 Sat by Pulse Oximetry: 98 Airway: patent Nausea: No Vomiting: No Pain Intensity: 3 Hydration Status: adequate Cardiopulmonary Status: stable Mental Status/LOC: patient returned to baseline Follow-up Care/Observations: n/a Post-Anesthesia Complications: none Follow-up care needed: N/A Baudilio Garnett MD Sep 20, 2018 11:20
[2018-09-20] MEDS: D5 1/2NS 1,000 ML IV SCH (11:54)
[2018-09-20 12:00] VITALS: BP 109/60
[2018-09-20] MEDS ORDERED: DiphenhydrAMINE 50mg/ml Inj IVP SCH (13:00)
[2018-09-20] MEDS ORDERED: DiphenhydrAMINE 50mg/ml Inj IVP ONE (13:00)
--- NOTE | 2018-09-20 15:22 | Infectious Diseases Prog Note ---
Assessment/Plan Assessment/Plan ASSESSMENT AND PLAN: 1. right axilla abscess/cellulitis/infected hidradenitis suppurative/infected wound, pain, leukocytosis - vancomycin and ceftriaxone - s/p debridement - check wound culture - monitor labs - plan on wound closure 2. Anxiety. 3. Depression. 4. Hidradenitis suppurativa with history of surgery and antibiotics. 5. Crohn's disease. 6. Anemia. 7. Allergies to azathioprine, bisacodyl, docusate, iodine contrast, latex, Silver tape, and vancomycin. 8. MAR was noted. 9. Case was discussed with RN. 10. Family history is noncontributory. 11. Social history is negative. 12. Continue treatment per primary consultants. Subjective Constitutional: Denies: fever HEENT: Denies: congestion Respiratory: Denies: shortness of breath Cardiovascular: Denies: chest pain Gastrointestinal/Abdominal: Denies: nausea, vomiting, diarrhea Genitourinary: Reports: other - no santana Neurologic: Denies: headache Psychiatric: Denies: depression Skin: Denies: rash Hematologic: Denies: bleeding Musculoskeletal: Reports: pain - right axilla pain Allergies: Coded Allergies: SILVER (Verified Allergy, Mild, 06/13/18) AZATHIOPRINE (Verified Allergy, Unknown, 05/15/18) DOCUSATE (Verified Allergy, Unknown, 05/15/18) ok for oral LATEX (Verified Allergy, Unknown, 05/15/18) VANCOMYCIN (Verified Allergy, Unknown, 05/15/18) BISACODYL (Verified Adverse Reaction, Severe, Rash, 05/15/18) Uncoded Allergies: IODINE CONTRAST (Allergy, Unknown, 05/15/18) TAPE (Allergy, Unknown, 05/15/18) Objective Vital Signs Last 24 Hour Vital Signs Date Time Temp Pulse Resp B/P (MAP) Pulse Ox O2 Delivery O2 Flow Rate FiO2 09/20/18 12:00 98.3 90 14 109/60 (76) 93 09/20/18 12:00 17 09/20/18 11:20 74 21 98 09/20/18 11:19 68 20 98 09/20/18 09:00 Nasal Cannula 3.0 09/20/18 08:00 16 09/20/18 08:00 98.4 98 15 109/72 (84) 92 09/20/18 04:00 98.8 90 17 107/69 (82) 98 09/20/18 04:00 16 09/20/18 00:00 16 09/20/18 00:00 98.9 80 17 99/63 (75) 96 09/19/18 21:00 Nasal Cannula 3.0 09/19/18 20:00 98.9 93 16 107/69 (82) 97 09/19/18 20:00 16 09/19/18 16:00 98.7 88 17 111/55 (73) 98 09/19/18 16:00 17 Height (Feet): 5 Height (Inches): 5.00 Weight (Pounds): 187 General Appearance: no acute distress HEENT: normocephalic, atraumatic, anicteric, mucous membranes moist Respiratory/Chest: lungs clear, normal breath sounds, no respiratory distress, no accessory muscle use Cardiovascular: normal rate, regular rhythm, no gallop/murmur, no JVD Abdomen: normal bowel sounds, soft, non tender, no organomegaly, non distended Genitourinary: other - no santana Extremities: no cyanosis Skin: no rash Neurologic/Psychiatric: backend python developer II-XII grossly normal, alert, oriented x 3, responsive Lymphatic: no neck adenopathy Musculoskeletal: no effusion Objective no imaging Microbiology Date/Time Source Procedure Growth Status 09/19/18 08:02 Axilla Right Gram Stain - Final Resulted 09/19/18 08:02 Axilla Right Aerobic Culture - Preliminary NO GROWTH Resulted 09/19/18 08:02 Axilla Right Anaerobic Culture Pending Resulted Laboratory Tests Test 09/20/18 09:58 White Blood Count 10.0 K/UL (4.8-10.8) Red Blood Count 4.00 M/UL (4.20-5.40) L Hemoglobin 11.1 G/DL (12.0-16.0) L Hematocrit 35.0 % (37.0-47.0) L Mean Corpuscular Volume 87 FL (80-99) Mean Corpuscular Hemoglobin 27.8 PG (27.0-31.0) Mean Corpuscular Hemoglobin Concent 31.8 G/DL (32.0-36.0) L Red Cell Distribution Width 12.1 % (11.6-14.8) Platelet Count 287 K/UL (150-450) Mean Platelet Volume 5.6 FL (6.5-10.1) L Neutrophils (%) (Auto) 53.4 % (45.0-75.0) Lymphocytes (%) (Auto) 33.7 % (20.0-45.0) Monocytes (%) (Auto) 10.2 % (1.0-10.0) H Eosinophils (%) (Auto) 2.0 % (0.0-3.0) Basophils (%) (Auto) 0.8 % (0.0-2.0) Sodium Level 139 MMOL/L (136-145) Potassium Level 4.0 MMOL/L (3.5-5.1) Chloride Level 106 MMOL/L (98-107) Carbon Dioxide Level 30 MMOL/L (21-32) Anion Gap 3 mmol/L (5-15) L Blood Urea Nitrogen 7 mg/dL (7-18) Creatinine 0.9 MG/DL (0.55-1.30) Estimat Glomerular Filtration Rate > 60 mL/min (>60) Glucose Level 132 MG/DL (74-106) H Calcium Level 8.0 MG/DL (8.5-10.1) L Current Medications Medications (Trade) Dose Ordered Sig/Alix Route PRN Reason Start Time Stop Time Status Last Admin Dose Admin Acetaminophen (Tylenol) 650 mg Q4H PRN ORAL FEVER 09/19/18 07:45 10/19/18 07:44 Aripiprazole (Abilify) 2.5 mg DAILY ORAL 09/18/18 09:00 10/18/18 08:59 09/20/18 08:11 Ceftriaxone Sodium 1 gm/ Dextrose 50 ml @ 100 mls/hr Q24H IVPB 09/18/18 15:00 09/25/18 14:59 09/19/18 13:52 Daptomycin 500 mg/ Sodium Chloride 50 ml @ 100 mls/hr Q24H IV 09/18/18 15:00 09/25/18 14:59 09/19/18 15:27 Dextrose (Dextrose 50%) 25 ml Q30M PRN IV Hypoglycemia 09/17/18 21:15 10/17/18 21:14 Dextrose (Dextrose 50%) 50 ml Q30M PRN IV Hypoglycemia 09/17/18 21:15 10/17/18 21:14 Dextrose/Sodium Chloride 1,000 ml @ 75 mls/hr [id number] IV 09/18/18 18:30 10/18/18 18:29 09/20/18 11:54 Diphenhydramine HCl (Benadryl) 50 mg Q6H PRN IVP Itching 09/20/18 18:00 10/18/18 17:59 Famotidine (Pepcid) 20 mg BID ORAL 09/18/18 09:00 10/18/18 08:59 09/20/18 08:10 Fluoxetine HCl (PROzac) 20 mg DAILY ORAL 09/18/18 09:00 10/18/18 08:59 09/20/18 08:10 Heparin Sodium (Porcine) (Heparin 5000 units/ml) 5,000 units EVERY 12 HOURS SUBQ 09/19/18 09:00 10/19/18 08:59 09/20/18 08:13 Hydromorphone HCl 30 ml @ 0 mls/hr Q24H PRN IV For Pain 09/19/18 07:45 09/21/18 07:44 09/19/18 08:56 Hydromorphone HCl (Dilaudid) 2 mg Q3H PRN SUBQ FOR BREAKTHRU PAIN (7-10) 09/19/18 11:00 09/26/18 10:59 09/20/18 08:12 Hydromorphone HCl (Dilaudid) 2 mg Q4H PRN IVP FOR BREAKTHRU PAIN (4-6) 09/19/18 11:00 09/26/18 10:59 Lorazepam (Ativan) 1 mg Q6H PRN ORAL For Anxiety 09/17/18 21:15 09/24/18 21:14 Magnesium Hydroxide (Mom) 30 ml HSPRN PRN ORAL Constipation 09/17/18 21:15 10/17/18 21:14 Miscellaneous Medication (LABOR RELATIONS SPECIALIST Rate Change) 1 ea DAILY PRN MISC rate change 09/19/18 07:45 09/21/18 07:44 Miscellaneous Medication (LABOR RELATIONS SPECIALIST shift volume) 1 ea Q12HR@0700,1900 MISC 09/19/18 19:00 09/21/18 18:59 09/20/18 07:00 Naloxone HCl (Narcan) 0.1 mg PRN IV . 09/19/18 11:00 09/21/18 10:59 Ondansetron HCl (Zofran) 4 mg Q6H PRN IVP Nausea & Vomiting 09/19/18 07:45 10/19/18 07:44 Zolpidem Tartrate (Ambien) 5 mg DAILYPRN PRN ORAL Insomnia 09/19/18 07:45 09/26/18 07:44 Niya Holley MD Sep 20, 2018 15:22
[2018-09-20] MEDS: DAPTOmycin 500 MG in NS 50 ML IV SCH (15:26)
[2018-09-20 16:00] VITALS: BP 101/58
[2018-09-20] MEDS: cefTRIAXone 1 GM in D5W 50 ML IVPB SCH (16:18)
[2018-09-20 20:00] VITALS: BP 111/70
--- NOTE | 2018-09-20 21:17 | General Progress Note ---
Assessment/Plan Assessment/Plan: 22 year old female with PMH of Crohns disease, anxiety and hidradenitis suppurativa presents with pain in R axilla region with open wound with drainage. #History of hidradenitis suppurativa with recent R axilla drainage at OSH, #Right axillary pain and drainage, concern for infection and possible recurrence of abscess. #S/P Exploration of right axillary wound, Debridement of right axillary tissue POD #0 -continue Daptomycin and ceftriaxone as recommended by ID -Plastic Surgery consult appreciated -Pain management consult appreciated -Cont Dilaudid SENIOR ENGINEERING TEAM LEADER per pain management -monitor CBC and BMP -encourage incentive spirometer -scd for DVT until cleared by surgery for heparin sq -encouraged ambulation #Anxiety -home meds restarted #History of Crohn's on Remicade -Remicade on hold for now -continue to monitor Code status Full I spent 75 min on this patients care, and 40 min was dedicated to counseling and /or care coordination VTE PPx scd Full Code Subjective Date patient seen: Sep 20, 2018 ROS Limited/Unobtainable: No Allergies: Coded Allergies: SILVER (Verified Allergy, Mild, 06/13/18) AZATHIOPRINE (Verified Allergy, Unknown, 05/15/18) DOCUSATE (Verified Allergy, Unknown, 05/15/18) ok for oral LATEX (Verified Allergy, Unknown, 05/15/18) VANCOMYCIN (Verified Allergy, Unknown, 05/15/18) BISACODYL (Verified Adverse Reaction, Severe, Rash, 05/15/18) Uncoded Allergies: IODINE CONTRAST (Allergy, Unknown, 05/15/18) TAPE (Allergy, Unknown, 05/15/18) All Systems: reviewed and negative except above Subjective Pt seen at bedside, pain adequately controlled with current regimen, tolerating PO diet, denies nausea vomiting, chest pain, SOB or urinary complaints Objective Last 24 Hour Vital Signs Date Time Temp Pulse Resp B/P (MAP) Pulse Ox O2 Delivery O2 Flow Rate FiO2 09/20/18 12:00 98.3 90 14 109/60 (76) 93 09/20/18 12:00 17 09/20/18 11:20 74 21 98 09/20/18 11:19 68 20 98 09/20/18 09:00 Nasal Cannula 3.0 09/20/18 08:00 16 09/20/18 08:00 98.4 98 15 109/72 (84) 92 09/20/18 04:00 98.8 90 17 107/69 (82) 98 09/20/18 04:00 16 09/20/18 00:00 16 09/20/18 00:00 98.9 80 17 99/63 (75) 96 Intake and Output 09/19/18 09/20/18 19:00 07:00 Intake Total 2575 ml 1260 ml Output Total 50 ml Balance 2525 ml 1260 ml Intake Oral 1000 ml 360 ml IV Total 1575 ml 900 ml Output Estimated Blood Loss 50 ml # Voids 2 Laboratory Tests 09/20/18 09:58: White Blood Count 10.0, Red Blood Count 4.00L, Hemoglobin 11.1L, Hematocrit 35.0L, Mean Corpuscular Volume 87, Mean Corpuscular Hemoglobin 27.8, Mean Corpuscular Hemoglobin Concent 31.8L, Red Cell Distribution Width 12.1, Platelet Count 287, Mean Platelet Volume 5.6L, Neutrophils (%) (Auto) 53.4, Lymphocytes (%) (Auto) 33.7, Monocytes (%) (Auto) 10.2H, Eosinophils (%) (Auto) 2.0, Basophils (%) (Auto) 0.8, Sodium Level 139, Potassium Level 4.0, Chloride Level 106, Carbon Dioxide Level 30, Anion Gap 3L, Blood Urea Nitrogen 7, Creatinine 0.9, Estimat Glomerular Filtration Rate > 60, Glucose Level 132H, Calcium Level 8.0L Height (Feet): 5 Height (Inches): 5.00 Weight (Pounds): 187 Objective General Appearance: moderate distress 2/2 pain, alert HEENT: normocephalic, atraumatic, anicteric Neck: normal alignment, supple, normal inspection Respiratory/Chest: chest wall non-tender, lungs clear, normal breath sounds, no respiratory distress Cardiovascular/Chest: normal peripheral pulses, normal rate Abdomen: normal bowel sounds, non tender, soft Extremities: non-tender, other - R axillary with dressing CDI, TTP Neurologic: 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
[2018-09-21] VITALS: BP 100/69
[2018-09-21] MEDS: D5 1/2NS 1,000 ML IV SCH ×3 (00:01→22:23)
[2018-09-21] MEDS: DiphenhydrAMINE 50mg/ml Inj IVP PRN ×3 (01:09→18:27)
[2018-09-21 04:00] VITALS: BP 104/52
[2018-09-21 06:07] LABS: BASOPHILS % (AUTO) 1.3 % (0.0-2.0); EOSINOPHILS % (AUTO) 2.1 % (0.0-3.0); LYMPHOCYTES % (AUTO) 31.2 % (20.0-45.0); MEAN CORPUSCULAR VOLUME 86 FL (80-99); MONOCYTES % (AUTO) 9.1 % (1.0-10.0); NEUTROPHILS % (AUTO) 56.3 % (45.0-75.0); PLATELET COUNT 279 K/UL (150-450); RED BLOOD COUNT 3.95 M/UL (4.20-5.40); RED CELL DISTRIBUTION WIDTH 12.7 % (11.6-14.8); WHITE BLOOD COUNT 9.4 K/UL (4.8-10.8)
[2018-09-21 06:36] LABS: ANION GAP 5 mmol/L (5-15); BLOOD UREA NITROGEN 5 mg/dL (7-18); CALCIUM 7.5 MG/DL (8.5-10.1); CARBON DIOXIDE 26 MMOL/L (21-32); CHLORIDE 104 MMOL/L (98-107); CREATININE 0.9 MG/DL (0.55-1.30); POTASSIUM 3.7 MMOL/L (3.5-5.1); SODIUM 135 MMOL/L (136-145)
[2018-09-21] MEDS: PCA shift volume MISC SCH ×2 (07:00→19:00)
[2018-09-21 08:00] VITALS: BP 103/59
[2018-09-21] MEDS: Heparin 5000 units/ml inj SUBQ SCH ×2 (08:26→21:58)
--- NOTE | 2018-09-21 09:24 | General Progress Note ---
Progress Note Progress Note Pt seen and examined. POD# 2 from right axillary tissue excision for hidradenitis. Pain is being managed with ENVIRONMENTAL HEALTH SPECIALIST Dressings removed and wound is clean with no surrounding cellulitis. Plan for OR on Monday for closure of wound. Sagar Campbell MD, MD Sep 21, 2018 09:24
[2018-09-21] MEDS ORDERED: PCA HYDROmorphone 1mg/ml 30 ML IV PRN (10:43)
[2018-09-21] MEDS ORDERED: Rate Change PCA 1 Each MISC PRN (10:45)
[2018-09-21 12:00] VITALS: BP 104/63
--- NOTE | 2018-09-21 12:46 | General Progress Note ---
Assessment/Plan Assessment/Plan: (1) Right Axillary pain (2) Right axillary abscess with hidradenitis suppurativa (3) S/p Exploration of right axillary wound, status post previous drainage and debridement Patient will be continued on PAYMENT MANAGER Dilaudid and Dilaudid breakthrough. D/w Dr. Long and he concurred. Subjective Date patient seen: Sep 21, 2018 Time patient seen: 12:30 - pm Constitutional: Reports: no symptoms HEENT: Reports: no symptoms Cardiovascular: Reports: no symptoms Respiratory: Reports: no symptoms Gastrointestinal/Abdominal: Reports: no symptoms Genitourinary: Reports: no symptoms Neurologic/Psychiatric: Reports: no symptoms Endocrine: Reports: no symptoms Hematologic/Lymphatic: Reports: no symptoms Allergies: Coded Allergies: SILVER (Verified Allergy, Mild, 06/13/18) AZATHIOPRINE (Verified Allergy, Unknown, 05/15/18) DOCUSATE (Verified Allergy, Unknown, 05/15/18) ok for oral LATEX (Verified Allergy, Unknown, 05/15/18) VANCOMYCIN (Verified Allergy, Unknown, 05/15/18) BISACODYL (Verified Adverse Reaction, Severe, Rash, 05/15/18) Uncoded Allergies: IODINE CONTRAST (Allergy, Unknown, 05/15/18) TAPE (Allergy, Unknown, 05/15/18) Subjective Patient is in bed, scheduled for surgery on Monday as per surgeon and pain has been tolerated on the PAYMENT MANAGER Dilaudid using 11mg in the last 24hrs with 4 doses of breakthrough Dilaudid. No new complaints at this time. Objective Last 24 Hour Vital Signs Date Time Temp Pulse Resp B/P (MAP) Pulse Ox O2 Delivery O2 Flow Rate FiO2 09/21/18 08:00 98.3 87 16 103/59 (74) 95 09/21/18 08:00 16 09/21/18 04:00 98.6 88 16 104/52 (69) 97 09/21/18 04:00 18 09/21/18 00:10 18 09/21/18 00:00 97.7 94 18 100/69 (79) 97 09/20/18 21:00 Nasal Cannula 3.0 09/20/18 20:00 97.7 98 16 111/70 (84) 96 09/20/18 20:00 16 09/20/18 16:00 98.2 83 16 101/58 (72) 98 09/20/18 16:00 17 Intake and Output 09/20/18 09/21/18 19:00 07:00 Intake Total 2175 ml 2450 ml Balance 2175 ml 2450 ml Intake Oral 1500 ml 2000 ml IV Total 675 ml 450 ml # Voids 1 3 Laboratory Tests 09/21/18 06:00: White Blood Count 9.4, Red Blood Count 3.95L, Hemoglobin 11.0L, Hematocrit 34.0L , Mean Corpuscular Volume 86, Mean Corpuscular Hemoglobin 27.7, Mean Corpuscular Hemoglobin Concent 32.2, Red Cell Distribution Width 12.7, Platelet Count 279, Mean Platelet Volume 5.6L, Neutrophils (%) (Auto) 56.3, Lymphocytes ( %) (Auto) 31.2, Monocytes (%) (Auto) 9.1, Eosinophils (%) (Auto) 2.1, Basophils (%) (Auto) 1.3, Sodium Level 135L, Potassium Level 3.7, Chloride Level 104, Carbon Dioxide Level 26, Anion Gap 5, Blood Urea Nitrogen 5L, Creatinine 0.9, Estimat Glomerular Filtration Rate > 60, Glucose Level 470#H, Calcium Level 7.5L Height (Feet): 5 Height (Inches): 5.00 Weight (Pounds): 187 General Appearance: no apparent distress, alert EENT: PERRL/EOMI, normal ENT inspection Neck: non-tender, normal alignment Cardiovascular: normal rate, regular rhythm Respiratory/Chest: lungs clear, normal breath sounds Abdomen: non tender, soft Extremities: other - right axilla bandages noted Edema: no edema noted Arm (L), no edema noted Arm (R), no edema noted Leg (L), no edema noted Leg (R), no edema noted Pedal (L), no edema noted Pedal (R), no edema noted Generalized Neurologic: alert, oriented x 3 Skin: warm/dry Hao Aldana Sep 21, 2018 12:46
[2018-09-21] MEDS ORDERED: Lidocaine 1% Plain 30 ml INJ PRN (13:30)
[2018-09-21] MEDS ORDERED: Heparin1,000 units/500ml Premix(Conc:2 units/ml) IV PRN (13:30)
--- NOTE | 2018-09-21 14:33 | General Progress Note ---
Assessment/Plan Assessment/Plan: 22 year old female with PMH of Crohns disease, anxiety and hidradenitis suppurativa presents with pain in R axilla region with open wound with drainage. #History of hidradenitis suppurativa with recent R axilla drainage at OSH, #Right axillary pain and drainage, concern for infection and possible recurrence of abscess. 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 management -monitor CBC and BMP -encourage incentive spirometer -scd for DVT until cleared by surgery for heparin sq -encouraged ambulation -Plan for wound closure on monday #Anxiety -home meds restarted #History of Crohn's on Remicade -Remicade on hold for now -continue to monitor Code status Full I spent 75 min on this patients care, and 40 min was dedicated to counseling and /or care coordination VTE PPx scd Full Code Subjective Date patient seen: Sep 21, 2018 ROS Limited/Unobtainable: No Allergies: Coded Allergies: SILVER (Verified Allergy, Mild, 06/13/18) AZATHIOPRINE (Verified Allergy, Unknown, 05/15/18) DOCUSATE (Verified Allergy, Unknown, 05/15/18) ok for oral LATEX (Verified Allergy, Unknown, 05/15/18) VANCOMYCIN (Verified Allergy, Unknown, 05/15/18) BISACODYL (Verified Adverse Reaction, Severe, Rash, 05/15/18) Uncoded Allergies: IODINE CONTRAST (Allergy, Unknown, 05/15/18) TAPE (Allergy, Unknown, 05/15/18) Subjective Pt seen at bedside, pain adequately controlled with current regimen, tolerating PO diet, denies nausea vomiting, chest pain, SOB or urinary complaints Objective Last 24 Hour Vital Signs Date Time Temp Pulse Resp B/P (MAP) Pulse Ox O2 Delivery O2 Flow Rate FiO2 09/21/18 12:00 16 09/21/18 12:00 97.9 86 16 104/63 (77) 94 09/21/18 09:00 Nasal Cannula 3.0 09/21/18 08:00 98.3 87 16 103/59 (74) 95 09/21/18 08:00 16 09/21/18 04:00 98.6 88 16 104/52 (69) 97 09/21/18 04:00 18 09/21/18 00:10 18 09/21/18 00:00 97.7 94 18 100/69 (79) 97 09/20/18 21:00 Nasal Cannula 3.0 09/20/18 20:00 97.7 98 16 111/70 (84) 96 09/20/18 20:00 16 09/20/18 16:00 98.2 83 16 101/58 (72) 98 09/20/18 16:00 17 Intake and Output 09/20/18 09/21/18 19:00 07:00 Intake Total 2175 ml 2450 ml Balance 2175 ml 2450 ml Intake Oral 1500 ml 2000 ml IV Total 675 ml 450 ml # Voids 1 3 Laboratory Tests 09/21/18 06:00: White Blood Count 9.4, Red Blood Count 3.95L, Hemoglobin 11.0L, Hematocrit 34.0L , Mean Corpuscular Volume 86, Mean Corpuscular Hemoglobin 27.7, Mean Corpuscular Hemoglobin Concent 32.2, Red Cell Distribution Width 12.7, Platelet Count 279, Mean Platelet Volume 5.6L, Neutrophils (%) (Auto) 56.3, Lymphocytes ( %) (Auto) 31.2, Monocytes (%) (Auto) 9.1, Eosinophils (%) (Auto) 2.1, Basophils (%) (Auto) 1.3, Sodium Level 135L, Potassium Level 3.7, Chloride Level 104, Carbon Dioxide Level 26, Anion Gap 5, Blood Urea Nitrogen 5L, Creatinine 0.9, Estimat Glomerular Filtration Rate > 60, Glucose Level 470#H, Calcium Level 7.5L Height (Feet): 5 Height (Inches): 5.00 Weight (Pounds): 187 Objective General Appearance: moderate distress 2/2 pain, alert HEENT: normocephalic, atraumatic, anicteric Neck: normal alignment, supple, normal inspection Respiratory/Chest: chest wall non-tender, lungs clear, normal breath sounds, no respiratory distress Cardiovascular/Chest: normal peripheral pulses, normal rate Abdomen: normal bowel sounds, non tender, soft Extremities: non-tender, other - R axillary with open surgical site with packing, no drainage Neurologic: bar steward II-XII grossly normal, no motor/sensory deficits, alert, oriented x 3 Vuu,Celeste MD Sep 21, 2018 14:33
[2018-09-21] MEDS: DAPTOmycin 500 MG in NS 50 ML IV SCH ×2 (15:00→18:26)
[2018-09-21 16:00] VITALS: BP 99/52
[2018-09-21 20:00] VITALS: BP 122/64
[2018-09-21] MEDS ORDERED: Dyna-Hex 2% Top Sol 2oz TOPIC SCH (20:00)
[2018-09-22] VITALS: BP 99/58
[2018-09-22 04:30] VITALS: BP 113/60
[2018-09-22 05:55] LABS: BASOPHILS % (AUTO) 0.8 % (0.0-2.0); EOSINOPHILS % (AUTO) 2.9 % (0.0-3.0); HEMATOCRIT 34.2 % (37.0-47.0); HEMOGLOBIN 10.9 G/DL (12.0-16.0); LYMPHOCYTES % (AUTO) 36.5 % (20.0-45.0); MEAN CORPUSCULAR VOLUME 87 FL (80-99); MONOCYTES % (AUTO) 8.5 % (1.0-10.0); NEUTROPHILS % (AUTO) 51.4 % (45.0-75.0); PLATELET COUNT 286 K/UL (150-450); RED BLOOD COUNT 3.93 M/UL (4.20-5.40); RED CELL DISTRIBUTION WIDTH 12.7 % (11.6-14.8); WHITE BLOOD COUNT 8.3 K/UL (4.8-10.8)
[2018-09-22] MEDS: DiphenhydrAMINE 50mg/ml Inj IVP PRN ×3 (05:57→21:26)
[2018-09-22 06:08] LABS: ANION GAP 7 mmol/L (5-15); BLOOD UREA NITROGEN 3 mg/dL (7-18); CALCIUM 8.1 MG/DL (8.5-10.1); CARBON DIOXIDE 26 MMOL/L (21-32); CHLORIDE 105 MMOL/L (98-107); CREATININE 0.8 MG/DL (0.55-1.30); POTASSIUM 3.7 MMOL/L (3.5-5.1); SODIUM 138 MMOL/L (136-145)
[2018-09-22 06:21] LABS: CREATINE KINASE 46 U/L (26-308)
[2018-09-22] MEDS: PCA shift volume MISC SCH ×2 (07:00→19:00)
[2018-09-22 08:50] VITALS: BP 105/59
[2018-09-22] MEDS: Heparin 5000 units/ml inj SUBQ SCH ×2 (09:16→21:29)
[2018-09-22 12:00] VITALS: BP 110/61
[2018-09-22] MEDS: D5 1/2NS 1,000 ML IV SCH (13:52)
--- NOTE | 2018-09-22 15:04 | General Progress Note ---
Assessment/Plan Status: stable Assessment/Plan: Assessment/Plan Assessment/Plan: 22 year old female with PMH of Crohns disease, anxiety and hidradenitis suppurativa presents with pain in R axilla region with open wound with drainage. #History of hidradenitis suppurativa with recent R axilla drainage at OSH, #Right axillary pain and drainage, concern for infection and possible recurrence of abscess. 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 -Plan for wound closure on monday #Anxiety -home meds restarted #History of Crohn's on Remicade -Remicade on hold for now -continue to monitor Code status Full I spent 75 min on this patients care, and 40 min was dedicated to counseling and /or care coordination VTE PPx scd Full Code Subjective ROS Limited/Unobtainable: No Constitutional: Reports: no symptoms HEENT: Reports: no symptoms Cardiovascular: Reports: no symptoms Respiratory: Reports: no symptoms Gastrointestinal/Abdominal: Reports: no symptoms Genitourinary: Reports: no symptoms Neurologic/Psychiatric: Reports: no symptoms Hematologic/Lymphatic: Reports: no symptoms Allergies: Coded Allergies: SILVER (Verified Allergy, Mild, 06/13/18) AZATHIOPRINE (Verified Allergy, Unknown, 05/15/18) DOCUSATE (Verified Allergy, Unknown, 05/15/18) ok for oral LATEX (Verified Allergy, Unknown, 05/15/18) VANCOMYCIN (Verified Allergy, Unknown, 05/15/18) BISACODYL (Verified Adverse Reaction, Severe, Rash, 05/15/18) Uncoded Allergies: IODINE CONTRAST (Allergy, Unknown, 05/15/18) TAPE (Allergy, Unknown, 05/15/18) Objective Last 24 Hour Vital Signs Date Time Temp Pulse Resp B/P (MAP) Pulse Ox O2 Delivery O2 Flow Rate FiO2 09/22/18 13:27 16 09/22/18 12:00 99.0 90 16 110/61 (77) 98 09/22/18 09:00 Room Air 09/22/18 08:50 98.2 83 16 105/59 (74) 96 09/22/18 08:00 16 09/22/18 04:30 97.8 86 18 113/60 (77) 100 09/22/18 04:00 16 09/22/18 00:00 18 09/22/18 00:00 98.0 84 18 99/58 (72) 97 09/21/18 21:00 Room Air 09/21/18 20:00 98.1 83 18 122/64 (83) 100 09/21/18 20:00 18 09/21/18 16:00 98.2 81 16 99/52 (68) 94 09/21/18 16:00 16 Intake and Output 09/21/18 09/22/18 19:00 07:00 Intake Total 2450 ml 825 ml Balance 2450 ml 825 ml Intake Oral 2000 ml IV Total 450 ml 825 ml # Voids 5 3 # Bowel Movements 1 Laboratory Tests 09/22/18 05:34: White Blood Count 8.3, Red Blood Count 3.93L, Hemoglobin 10.9L, Hematocrit 34.2L , Mean Corpuscular Volume 87, Mean Corpuscular Hemoglobin 27.8, Mean Corpuscular Hemoglobin Concent 32.0, Red Cell Distribution Width 12.7, Platelet Count 286, Mean Platelet Volume 5.4L, Neutrophils (%) (Auto) 51.4, Lymphocytes ( %) (Auto) 36.5, Monocytes (%) (Auto) 8.5, Eosinophils (%) (Auto) 2.9, Basophils (%) (Auto) 0.8, Sodium Level 138, Potassium Level 3.7, Chloride Level 105, Carbon Dioxide Level 26, Anion Gap 7, Blood Urea Nitrogen 3L, Creatinine 0.8, Estimat Glomerular Filtration Rate > 60, Glucose Level 129#H, Calcium Level 8.1L , Total Creatine Kinase 46 Height (Feet): 5 Height (Inches): 5.00 Weight (Pounds): 187 General Appearance: WD/WN EENT: PERRL/EOMI Neck: non-tender Cardiovascular: normal peripheral pulses, regular rhythm Respiratory/Chest: normal breath sounds Abdomen: soft Extremities: normal range of motion Neurologic: animal care attendant II-XII grossly normal Aida Looney MD Sep 22, 2018 15:04
--- NOTE | 2018-09-22 15:53 | Infectious Diseases Prog Note ---
Assessment/Plan Assessment/Plan ASSESSMENT AND PLAN: 1. right axilla abscess/cellulitis/infected hidradenitis suppurative/infected wound, pain, leukocytosis - daptomycin - wound culture with foley artist - likely contaminant - s/p debridement - check wound culture - monitor labs - plan on wound closure 2. Anxiety. 3. Depression. 4. Hidradenitis suppurativa with history of surgery and antibiotics. 5. Crohn's disease. 6. Anemia. 7. Allergies to azathioprine, bisacodyl, docusate, iodine contrast, latex, Silver tape, and vancomycin. 8. MAR was noted. 9. Case was discussed with RN. 10. Family history is noncontributory. 11. Social history is negative. 12. Continue treatment per primary consultants. Subjective Constitutional: Denies: fever HEENT: Denies: congestion Respiratory: Denies: shortness of breath Cardiovascular: Denies: chest pain Gastrointestinal/Abdominal: Denies: vomiting, diarrhea Neurologic: Denies: headache Psychiatric: Denies: depression Skin: Denies: rash Hematologic: Denies: bleeding Musculoskeletal: Reports: pain - right axilla pain controlled Allergies: Coded Allergies: SILVER (Verified Allergy, Mild, 06/13/18) AZATHIOPRINE (Verified Allergy, Unknown, 05/15/18) DOCUSATE (Verified Allergy, Unknown, 05/15/18) ok for oral LATEX (Verified Allergy, Unknown, 05/15/18) VANCOMYCIN (Verified Allergy, Unknown, 05/15/18) BISACODYL (Verified Adverse Reaction, Severe, Rash, 05/15/18) Uncoded Allergies: IODINE CONTRAST (Allergy, Unknown, 05/15/18) TAPE (Allergy, Unknown, 05/15/18) Objective Vital Signs Last 24 Hour Vital Signs Date Time Temp Pulse Resp B/P (MAP) Pulse Ox O2 Delivery O2 Flow Rate FiO2 09/22/18 13:27 16 09/22/18 12:00 99.0 90 16 110/61 (77) 98 09/22/18 09:00 Room Air 09/22/18 08:50 98.2 83 16 105/59 (74) 96 09/22/18 08:00 16 09/22/18 04:30 97.8 86 18 113/60 (77) 100 09/22/18 04:00 16 09/22/18 00:00 18 09/22/18 00:00 98.0 84 18 99/58 (72) 97 09/21/18 21:00 Room Air 09/21/18 20:00 98.1 83 18 122/64 (83) 100 09/21/18 20:00 18 09/21/18 16:00 98.2 81 16 99/52 (68) 94 09/21/18 16:00 16 Height (Feet): 5 Height (Inches): 5.00 Weight (Pounds): 187 General Appearance: no acute distress HEENT: normocephalic, atraumatic, anicteric, mucous membranes moist Respiratory/Chest: lungs clear, normal breath sounds, no accessory muscle use Cardiovascular: normal rate, regular rhythm, no gallop/murmur, no JVD Abdomen: normal bowel sounds, soft, non tender, no organomegaly, non distended Genitourinary: other - no santana Extremities: no cyanosis Skin: no rash Neurologic/Psychiatric: health care analyst II-XII grossly normal, alert, oriented x 3, responsive Lymphatic: no neck adenopathy Objective no imaging Microbiology Date/Time Source Procedure Growth Status 09/19/18 08:02 Axilla Right Gram Stain - Final Resulted 09/19/18 08:02 Aerobic Culture - Final Staphylococcus Sp Coag Neg Resulted 09/19/18 08:02 Axilla Right Anaerobic Culture - Preliminary NO ANAEROBES ISOLATED Resulted Laboratory Tests Test 09/22/18 05:34 White Blood Count 8.3 K/UL (4.8-10.8) Red Blood Count 3.93 M/UL (4.20-5.40) L Hemoglobin 10.9 G/DL (12.0-16.0) L Hematocrit 34.2 % (37.0-47.0) L Mean Corpuscular Volume 87 FL (80-99) Mean Corpuscular Hemoglobin 27.8 PG (27.0-31.0) Mean Corpuscular Hemoglobin Concent 32.0 G/DL (32.0-36.0) Red Cell Distribution Width 12.7 % (11.6-14.8) Platelet Count 286 K/UL (150-450) Mean Platelet Volume 5.4 FL (6.5-10.1) L Neutrophils (%) (Auto) 51.4 % (45.0-75.0) Lymphocytes (%) (Auto) 36.5 % (20.0-45.0) Monocytes (%) (Auto) 8.5 % (1.0-10.0) Eosinophils (%) (Auto) 2.9 % (0.0-3.0) Basophils (%) (Auto) 0.8 % (0.0-2.0) Sodium Level 138 MMOL/L (136-145) Potassium Level 3.7 MMOL/L (3.5-5.1) Chloride Level 105 MMOL/L (98-107) Carbon Dioxide Level 26 MMOL/L (21-32) Anion Gap 7 mmol/L (5-15) Blood Urea Nitrogen 3 mg/dL (7-18) L Creatinine 0.8 MG/DL (0.55-1.30) Estimat Glomerular Filtration Rate > 60 mL/min (>60) Glucose Level 129 MG/DL (74-106) #H Calcium Level 8.1 MG/DL (8.5-10.1) L Total Creatine Kinase 46 U/L (26-308) Current Medications Medications (Trade) Dose Ordered Sig/Alix Route PRN Reason Start Time Stop Time Status Last Admin Dose Admin Acetaminophen (Tylenol) 650 mg Q4H PRN ORAL FEVER 09/19/18 07:45 10/19/18 07:44 Aripiprazole (Abilify) 2.5 mg DAILY ORAL 09/18/18 09:00 10/18/18 08:59 09/22/18 09:15 Chlorhexidine Gluconate (Magnolia-Hex 2%) 1 applic DAILY@2000 TOPIC 09/24/18 20:00 10/24/18 19:59 Daptomycin 500 mg/ Sodium Chloride 50 ml @ 100 mls/hr Q24H IV 09/18/18 15:00 09/25/18 14:59 09/21/18 18:26 Dextrose (Dextrose 50%) 25 ml Q30M PRN IV Hypoglycemia 09/17/18 21:15 10/17/18 21:14 Dextrose (Dextrose 50%) 50 ml Q30M PRN IV Hypoglycemia 09/17/18 21:15 10/17/18 21:14 Dextrose/Sodium Chloride 1,000 ml @ 75 mls/hr [id number] IV 09/18/18 18:30 10/18/18 18:29 09/22/18 13:52 Diphenhydramine HCl (Benadryl) 50 mg Q6H PRN IVP Itching 09/20/18 18:00 10/18/18 17:59 09/22/18 15:24 Diphenhydramine HCl (Benadryl) 50 mg Q6H PRN ORAL Itching 09/21/18 18:15 10/21/18 18:14 Famotidine (Pepcid) 20 mg BID ORAL 09/18/18 09:00 10/18/18 08:59 09/22/18 09:14 Fluoxetine HCl (PROzac) 20 mg DAILY ORAL 09/18/18 09:00 10/18/18 08:59 09/22/18 09:14 Heparin Sodium (Porcine) (Heparin 5000 units/ml) 5,000 units EVERY 12 HOURS SUBQ 09/19/18 09:00 10/19/18 08:59 09/22/18 09:16 Heparin Sodium/ Sodium Chloride (Heparin 1000 units/500ml Premix) 1,000 unit ONCE PRN IV PICC 09/21/18 13:30 09/24/18 23:59 Hydromorphone HCl 30 ml @ 0 mls/hr HOUSEKEEPING SUPERVISOR protocol PRN IV For Pain 09/21/18 10:43 09/23/18 10:42 09/21/18 11:03 Hydromorphone HCl (Dilaudid) 2 mg Q2H PRN SUBQ FOR BREAKTHRU PAIN (7-10) 09/21/18 18:15 09/28/18 18:14 Hydromorphone HCl (Dilaudid) 2 mg Q4H PRN IVP FOR BREAKTHRU PAIN (4-6) 09/19/18 11:00 09/26/18 10:59 09/22/18 11:58 Hydromorphone HCl (Dilaudid) 2 mg Q4H PRN SUBQ Severe Pain (Pain Scale 7-10) 09/21/18 18:15 09/28/18 18:14 Lidocaine HCl (Xylocaine 1% 30ml) 30 ml ONCE PRN INJ picc 09/21/18 13:30 09/24/18 23:59 Lorazepam (Ativan) 1 mg Q6H PRN ORAL For Anxiety 09/17/18 21:15 09/24/18 21:14 Magnesium Hydroxide (Mom) 30 ml HSPRN PRN ORAL Constipation 09/17/18 21:15 10/17/18 21:14 Miscellaneous Medication (HOUSEKEEPING SUPERVISOR Rate Change) 1 ea DAILY PRN MISC HOUSEKEEPING SUPERVISOR RATE CHANGE 09/21/18 10:45 09/23/18 10:44 Miscellaneous Medication (HOUSEKEEPING SUPERVISOR shift volume) 1 ea Q12HR@0700,1900 MISC 09/21/18 19:00 09/23/18 18:59 09/22/18 07:00 Ondansetron HCl (Zofran) 4 mg Q6H PRN IVP Nausea & Vomiting 09/19/18 07:45 10/19/18 07:44 Zolpidem Tartrate (Ambien) 5 mg DAILYPRN PRN ORAL Insomnia 09/19/18 07:45 09/26/18 07:44 Niya Holley MD Sep 22, 2018 15:53
[2018-09-22 16:00] VITALS: BP 108/62
[2018-09-22] MEDS ORDERED: D5 1/2NS 1000ml IV ONE ×2 (16:20→16:21)
[2018-09-22] MEDS ORDERED: NS Irrig 1000ml ONE (16:21)
[2018-09-22 20:00] VITALS: BP 89/57
[2018-09-23] VITALS: BP 90/59
[2018-09-23] MEDS: DiphenhydrAMINE 50mg/ml Inj IVP PRN ×4 (03:27→21:40)
[2018-09-23] MEDS: D5 1/2NS 1,000 ML IV SCH ×2 (03:32→15:13)
[2018-09-23 04:00] VITALS: BP 94/53
[2018-09-23] MEDS: PCA shift volume MISC SCH ×2 (07:16→19:00)
[2018-09-23] MEDS ORDERED: Rate Change PCA 1 Each MISC PRN (07:45)
[2018-09-23 08:00] VITALS: BP 102/57
[2018-09-23] MEDS ORDERED: PCA HYDROmorphone 1mg/ml 30 ML IV PRN (08:00)
[2018-09-23] MEDS: Heparin 5000 units/ml inj SUBQ SCH ×2 (08:44→20:20)
[2018-09-23 12:00] VITALS: BP 101/57
--- NOTE | 2018-09-23 12:25 | General Progress Note ---
Assessment/Plan Status: stable Assessment/Plan: Assessment/Plan Assessment/Plan: 22 year old female with PMH of Crohns disease, anxiety and hidradenitis suppurativa presents with pain in R axilla region with open wound with drainage. #History of hidradenitis suppurativa with recent R axilla drainage at OSH, #Right axillary pain and drainage, concern for infection and possible recurrence of abscess. #S/P Exploration of right axillary wound, Debridement of right axillary tissue POD #4 -ABX per by ID -Plastic Surgery consult appreciated -Pain management consult appreciated -Cont Dilaudid PHILANTHROPY OFFICER per pain management -monitor CBC and BMP -encourage incentive spirometer -scd for DVT until cleared by surgery for heparin sq -encouraged ambulation - Labs in AM for surgical procedure. -Plan for wound closure tomorrow, monday. - Activity as tolerated without weight bearing in the arms. #Anxiety -home meds restarted #History of Crohn's on Remicade -Remicade on hold for now -continue to monitor Code status Full I spent 75 min on this patients care, and 40 min was dedicated to counseling and /or care coordination VTE PPx scd Full Code Subjective ROS Limited/Unobtainable: No HEENT: Reports: no symptoms Cardiovascular: Reports: no symptoms Respiratory: Reports: no symptoms Gastrointestinal/Abdominal: Reports: no symptoms Genitourinary: Reports: no symptoms Neurologic/Psychiatric: Reports: no symptoms Allergies: Coded Allergies: SILVER (Verified Allergy, Mild, 06/13/18) AZATHIOPRINE (Verified Allergy, Unknown, 05/15/18) DOCUSATE (Verified Allergy, Unknown, 05/15/18) ok for oral LATEX (Verified Allergy, Unknown, 05/15/18) VANCOMYCIN (Verified Allergy, Unknown, 05/15/18) BISACODYL (Verified Adverse Reaction, Severe, Rash, 05/15/18) Uncoded Allergies: IODINE CONTRAST (Allergy, Unknown, 05/15/18) TAPE (Allergy, Unknown, 05/15/18) Subjective pain in the axillary area still present despite PHILANTHROPY OFFICER dosing. Objective Last 24 Hour Vital Signs Date Time Temp Pulse Resp B/P (MAP) Pulse Ox O2 Delivery O2 Flow Rate FiO2 09/23/18 10:08 98.6 09/23/18 09:00 Room Air 09/23/18 08:00 98.6 85 18 102/57 (72) 98 8/4/19 08:00 18 09/23/18 04:00 18 09/23/18 04:00 98.6 83 18 94/53 (67) 95 09/23/18 00:00 97.8 86 17 90/59 (69) 95 09/23/18 00:00 17 09/22/18 21:00 Room Air 09/22/18 20:00 18 09/22/18 20:00 97.3 95 18 89/57 (68) 96 09/22/18 16:00 97.3 94 16 108/62 (77) 95 09/22/18 16:00 16 09/22/18 13:27 16 Intake and Output 09/22/18 09/23/18 18:59 06:59 Intake Total 1511 ml 1665 ml Balance 1511 ml 1665 ml Intake Oral 686 ml 840 ml IV Total 825 ml 825 ml # Voids 3 2 Height (Feet): 5 Height (Inches): 5.00 Weight (Pounds): 187 Aida Looney MD Sep 23, 2018 12:25
--- NOTE | 2018-09-23 14:10 | General Progress Note ---
Assessment/Plan Status: stable Assessment/Plan: (1) Right Axillary pain (2) Right axillary abscess with hidradenitis suppurativa (3) S/p Exploration of right axillary wound, status post previous drainage and debridement Patient will be continued on FRAMING MILL OPERATOR Dilaudid and Dilaudid breakthrough. D/w Dr. Long and he concurred. Subjective Date patient seen: Sep 23, 2018 Time patient seen: 02:00 - pm Constitutional: Reports: no symptoms HEENT: Reports: no symptoms Cardiovascular: Reports: no symptoms Respiratory: Reports: no symptoms Gastrointestinal/Abdominal: Reports: no symptoms Genitourinary: Reports: no symptoms Neurologic/Psychiatric: Reports: no symptoms Endocrine: Reports: no symptoms Hematologic/Lymphatic: Reports: no symptoms Allergies: Coded Allergies: SILVER (Verified Allergy, Mild, 06/13/18) AZATHIOPRINE (Verified Allergy, Unknown, 05/15/18) DOCUSATE (Verified Allergy, Unknown, 05/15/18) ok for oral LATEX (Verified Allergy, Unknown, 05/15/18) VANCOMYCIN (Verified Allergy, Unknown, 05/15/18) BISACODYL (Verified Adverse Reaction, Severe, Rash, 05/15/18) Uncoded Allergies: IODINE CONTRAST (Allergy, Unknown, 05/15/18) TAPE (Allergy, Unknown, 05/15/18) Subjective Patient is in bed, mother at bedside. Pain has been severe however continues to be tolerated on the FRAMING MILL OPERATOR Dilaudid 10mg and 6 doses of Dilaudid IV in the last 24hrs. She is looking forward to surgery scheduled for tomorrow. Objective Last 24 Hour Vital Signs Date Time Temp Pulse Resp B/P (MAP) Pulse Ox O2 Delivery O2 Flow Rate FiO2 09/23/18 12:00 20 09/23/18 12:00 98.5 83 19 101/57 (72) 94 09/23/18 10:08 98.6 09/23/18 09:00 Room Air 09/23/18 08:00 98.6 85 18 102/57 (72) 98 09/23/18 08:00 18 09/23/18 04:00 18 09/23/18 04:00 98.6 83 18 94/53 (67) 95 09/23/18 00:00 97.8 86 17 90/59 (69) 95 09/23/18 00:00 17 09/22/18 21:00 Room Air 09/22/18 20:00 18 09/22/18 20:00 97.3 95 18 89/57 (68) 96 09/22/18 16:00 97.3 94 16 108/62 (77) 95 09/22/18 16:00 16 Intake and Output 09/22/18 09/23/18 19:00 07:00 Intake Total 1436 ml 1740 ml Balance 1436 ml 1740 ml Intake Oral 686 ml 840 ml IV Total 750 ml 900 ml # Voids 3 2 Height (Feet): 5 Height (Inches): 5.00 Weight (Pounds): 187 General Appearance: no apparent distress, alert EENT: PERRL/EOMI, normal ENT inspection Neck: non-tender, normal alignment Cardiovascular: normal rate, regular rhythm Respiratory/Chest: lungs clear, normal breath sounds Abdomen: non tender, soft Extremities: other - right axilla bandages noted Edema: no edema noted Arm (L), no edema noted Arm (R), no edema noted Leg (L), no edema noted Leg (R), no edema noted Pedal (L), no edema noted Pedal (R), no edema noted Generalized Neurologic: alert, oriented x 3 Skin: normal pigmentation Hao Aldana Sep 23, 2018 14:10
[2018-09-23] MEDS: DAPTOmycin 500 MG in NS 50 ML IV SCH (15:13)
[2018-09-23 16:00] VITALS: BP 101/60
[2018-09-23 20:00] VITALS: BP 94/60
[2018-09-24] VITALS (12 sets, daily range): BP systolic 95–112; BP diastolic 55–68
[2018-09-24] MEDS: DiphenhydrAMINE 50mg/ml Inj IVP PRN ×2 (04:56→13:12)
[2018-09-24] MEDS: D5 1/2NS 1,000 ML IV SCH ×2 (06:53→20:31)
[2018-09-24] MEDS: PCA shift volume MISC SCH ×2 (07:00→19:00)
[2018-09-24 07:40] LABS: BASOPHILS % (AUTO) 0.6 % (0.0-2.0); EOSINOPHILS % (AUTO) 2.2 % (0.0-3.0); HEMATOCRIT 35.1 % (37.0-47.0); HEMOGLOBIN 11.2 G/DL (12.0-16.0); LYMPHOCYTES % (AUTO) 30.7 % (20.0-45.0); MEAN CORPUSCULAR VOLUME 87 FL (80-99); MONOCYTES % (AUTO) 6.1 % (1.0-10.0); NEUTROPHILS % (AUTO) 60.3 % (45.0-75.0); PLATELET COUNT 298 K/UL (150-450); RED BLOOD COUNT 4.04 M/UL (4.20-5.40); RED CELL DISTRIBUTION WIDTH 12.8 % (11.6-14.8); WHITE BLOOD COUNT 8.9 K/UL (4.8-10.8)
[2018-09-24] MEDS ORDERED: Bacitracin 50000 Units Vial ONE (07:47)
[2018-09-24] MEDS ORDERED: Lidocaine 1% 10mg/ml/EPI 0.01mg/ml 50ml INJ ONE (07:47)
[2018-09-24 07:48] LABS: INR 0.9 (0.9-1.1)
[2018-09-24] MEDS ORDERED: NeoSporin Gu Irrig 1ml Amp IRRIG ONE (07:48)
[2018-09-24 08:10] LABS: ANION GAP 5 mmol/L (5-15); BLOOD UREA NITROGEN 6 mg/dL (7-18); CALCIUM 8.9 MG/DL (8.5-10.1); CARBON DIOXIDE 28 MMOL/L (21-32); CHLORIDE 104 MMOL/L (98-107); CREATININE 0.8 MG/DL (0.55-1.30); SODIUM 137 MMOL/L (136-145)
[2018-09-24] MEDS: Heparin 5000 units/ml inj SUBQ SCH ×2 (09:00→20:33)
[2018-09-24] MEDS ORDERED: Dyna-Hex 2% Top Sol 2oz TOPIC ONE (09:14)
[2018-09-24] MEDS ORDERED: EPINEPHrine 1mg/1ml Amp ONE (09:14)
[2018-09-24] MEDS ORDERED: NS Irrig 1000ml IRRIG ONE ×2 (09:39→10:40)
[2018-09-24] MEDS ORDERED: LR 1000ml ONE (10:00)
[2018-09-24] MEDS ORDERED: Sterile Water Irrig 1000ml IRRIG ONE (10:00)
[2018-09-24] MEDS ORDERED: fentaNYL 100 mcg/2 mL IV ONE (10:06)
[2018-09-24] MEDS ORDERED: Midazolam 2mg/2ml Inj ONE (10:06)
[2018-09-24] MEDS ORDERED: Lidocaine 1% MPF 10mg/ml 5ml ONE (10:06)
[2018-09-24] MEDS ORDERED: Propofol 200mg/20ml IV ONE (10:06)
[2018-09-24] MEDS ORDERED: Zemuron 50mg/5ml Inj IV ONE (10:15)
[2018-09-24] MEDS ORDERED: TransDerm Scop 1.5mg/72HR Patch TDERMAL ONE (10:15)
--- NOTE | 2018-09-24 10:33 | Pre-Procedure Note/Attestation ---
Pre-Procedure Note/Attestation Complete Prior to Procedure Planned Procedure: right Procedure Narrative: Right axillary wound flap closure Indications for Procedure Pre-Operative Diagnosis: Right axillary abscess Attestation I attest that I discussed the nature of the procedure; its benefits; risks and complications; and alternatives (and the risks and benefits of such alternatives ), prior to the procedure, with the patient (or the patient's legal automotive leasing sales representative). I attest that, if there was a reasonable possibility of needing a blood transfusion, the patient (or the patient's legal automotive leasing sales representative) was given the [facility] standardized written summary, pursuant to the Ishan Eli Blood Safety Act ([place] Health and Safety Code # 1645, as amended). I attest that I re-evaluated the patient just prior to the surgery and that there has been no change in the patient's H&P, except as documented below: Sagar Brambila MD Sep 24, 2018 10:33
[2018-09-24] MEDS ORDERED: PCA HYDROmorphone 1mg/ml 30 ML IV PRN (10:45)
[2018-09-24] MEDS ORDERED: Rate Change PCA 1 Each MISC PRN (10:45)
[2018-09-24] MEDS ORDERED: PCA Education Pamphlet MISC ONE (10:45)
[2018-09-24] MEDS ORDERED: Tubing IV Secondary IV ONE (10:56)
[2018-09-24] MEDS ORDERED: D5 1/2NS 1000ml IV ONE (10:56)
--- NOTE | 2018-09-24 11:16 | Anethesia Preoperative Eval ---
Anesthesia Pre-op PMH/ROS General Date of Evaluation: Sep 24, 2018 Time of Evaluation: 10:10 Anesthesiologist: Mariola ASA Score: ASA 2 Mallampati Score Class I : Soft palate, uvula, fauces, pillars visible Class II: Soft palate, uvula, fauces visible Class III: Soft palate, base of uvula visible Class IV: Only hard plate visible Mallampati Classification: Class II Surgeon: Patty Diagnosis: Recurrent HS Surgical Procedure: Revision and closure of R axillary wound Anesthesia History: PONV Family History: no anesthesia problems Allergies: Coded Allergies: SILVER (Verified Allergy, Mild, 06/13/18) AZATHIOPRINE (Verified Allergy, Unknown, 05/15/18) DOCUSATE (Verified Allergy, Unknown, 05/15/18) ok for oral LATEX (Verified Allergy, Unknown, 05/15/18) VANCOMYCIN (Verified Allergy, Unknown, 05/15/18) BISACODYL (Verified Adverse Reaction, Severe, Rash, 05/15/18) Uncoded Allergies: IODINE CONTRAST (Allergy, Unknown, 05/15/18) TAPE (Allergy, Unknown, 05/15/18) Medications: see eMAR Patient NPO?: Yes NPO Date: Sep 24, 2018 NPO Time: 0000 Past Medical History Cardiovascular: Denies: HTN, CAD, [place], valve dz, arrhythmia, other Pulmonary: Denies: asthma, COPD, INDIRA, other Gastrointestinal/Genitourinary: Reports: GERD - mild; Denies: CRI, ESRD, other Neurologic/Psychiatric: Reports: depression/anxiety, other - chronic pain; Denies: dementia, CVA, TIA Endocrine: Denies: DM, hypothyroidism, steroids, other HEENT: Denies: cataract (L), cataract (R), glaucoma, [place] (L), [place] (R), other Hematology/Immune: Denies: anemia, DVT, bleeding disorder, other Musculoskeletal/Integumentary: Denies: OA, RA, DJD, DDD, edema, other Other: other - overweight PMH Narrative: as above PSxH Narrative: Surgical treatment of recurrent HS Anesthesia Pre-op Phys. Exam Physician Exam Last Vital Signs Date Time Temp Pulse Resp B/P (MAP) Pulse Ox O2 Delivery O2 Flow Rate FiO2 09/24/18 04:00 16 09/24/18 04:00 98.9 83 104/61 (75) 98 09/23/18 22:00 Room Air 09/21/18 09:00 3.0 Constitutional: NAD Neurologic: CN 2-12 intact Cardiovascular: RRR, no M/R/G Respiratory: CTA Gastrointestinal: S/NT/ND Airway Exam Mallampati Score: Class II MO: full Neck: flexible ROM: limited Teeth: intact Dentures: no upper, no lower Anesthesia Pre-op A/P Labs Hematology Test 09/24/18 05:50 White Blood Count 8.9 K/UL (4.8-10.8) Red Blood Count 4.04 M/UL (4.20-5.40) L Hemoglobin 11.2 G/DL (12.0-16.0) L Hematocrit 35.1 % (37.0-47.0) L Mean Corpuscular Volume 87 FL (80-99) Mean Corpuscular Hemoglobin 27.6 PG (27.0-31.0) Mean Corpuscular Hemoglobin Concent 31.8 G/DL (32.0-36.0) L Red Cell Distribution Width 12.8 % (11.6-14.8) Platelet Count 298 K/UL (150-450) Mean Platelet Volume 5.7 FL (6.5-10.1) L Neutrophils (%) (Auto) 60.3 % (45.0-75.0) Lymphocytes (%) (Auto) 30.7 % (20.0-45.0) Monocytes (%) (Auto) 6.1 % (1.0-10.0) Eosinophils (%) (Auto) 2.2 % (0.0-3.0) Basophils (%) (Auto) 0.6 % (0.0-2.0) Coagulation Test 09/24/18 05:50 Prothrombin Time 9.9 SEC (9.30-11.50) Prothromb Time International Ratio 0.9 (0.9-1.1) Chemistry Test 09/24/18 05:50 Sodium Level 137 MMOL/L (136-145) Potassium Level 4.0 MMOL/L (3.5-5.1) Chloride Level 104 MMOL/L (98-107) Carbon Dioxide Level 28 MMOL/L (21-32) Anion Gap 5 mmol/L (5-15) Blood Urea Nitrogen 6 mg/dL (7-18) L Creatinine 0.8 MG/DL (0.55-1.30) Estimat Glomerular Filtration Rate > 60 mL/min (>60) Glucose Level 105 MG/DL (74-106) Calcium Level 8.9 MG/DL (8.5-10.1) Risk Assessment & Plan Assessment: ASA 2 Plan: GA with LMA PONV prevention Status Change Before Surgery: No Pre-Antibiotics Drug: Ancef 1gr Given Within 1 Hr of Incision: Yes Time Given: 10:48 Baudilio Garnett MD Sep 24, 2018 11:16
[2018-09-24] MEDS ORDERED: LR 1000ml 1,000 ML IVLG SCH (11:17)
[2018-09-24] MEDS ORDERED: Morphine Sulfate 10mg/ml Inj ONE (11:22)
[2018-09-24] MEDS ORDERED: Acetaminophen (Non formulary) 100 ML IV SCH (11:30)
[2018-09-24] MEDS ORDERED: Metoclopramide 10mg/2ml Inj IVP PRN (11:30)
[2018-09-24] MEDS ORDERED: Hydromorphone 0.5mg/0.5ml inj IVP PRN (11:30)
[2018-09-24] MEDS ORDERED: Midazolam 2mg/2ml Inj IVP PRN (11:30)
[2018-09-24] MEDS ORDERED: DiphenhydrAMINE 50mg/ml Inj IVP PRN (11:30)
[2018-09-24] MEDS ORDERED: Ketorolac 30mg Inj IV PRN (11:30)
[2018-09-24] MEDS ORDERED: Ketorolac 30mg Inj ONE (11:36)
--- NOTE | 2018-09-24 12:01 | Operative Note - PDOC ---
Operative Note Operative Note Pre-op Diagnosis: Right axillary wound Procedure: Right axillary excision of hidradenitis with flap closure Post-op Diagnosis: Same Post-op Diagnosis: same as pre-op Surgeon: Patty Health Navigator: Ava Anesthesia: general Specimen: yes Complications: none Condition: stable Estimated Blood Loss: minimal Drains: VANESSA Implant(s) used?: No Sagar Brambila MD Sep 24, 2018 12:01
[2018-09-24] MEDS: Meperidine 50mg/ml Inj(FOR RIGORS ONLY) IV PRN ×2 (12:14→16:05)
--- NOTE | 2018-09-24 12:21 | Immediate Post-Op Evaluation ---
Immediate Post-Op Evalulation Immediate Post-Op Evalulation Procedure: Revision and closure of R axillary wound Date of Evaluation: Sep 24, 2018 Time of Evaluation: 12:20 IV Fluids: 700 Blood Products: none Estimated Blood Loss: min Urinary Output: none Blood Pressure Systolic: 106 Blood Pressure Diastolic: 54 Pulse Rate: 98 Respiratory Rate: 24 O2 Sat by Pulse Oximetry: 98 Temperature (Fahrenheit): 97.4 Pain Score (1-10): 2 Nausea: No Vomiting: No Complications none Patient Status: reacts, patent, none Hydration Status: adequate Baudilio Garnett MD Sep 24, 2018 12:21
--- NOTE | 2018-09-24 14:30 | Infectious Diseases Prog Note ---
Assessment/Plan Assessment/Plan ASSESSMENT AND PLAN: 1. right axilla abscess/cellulitis/infected hidradenitis suppurative/infected wound, pain, leukocytosis - daptomycin for now - wound culture with stone finisher - likely contaminant - s/p debridement - s/p wound closure - monitor labs - monitor pain - may need further imaging if persists - d/w Dr. Brambila 2. Anxiety. 3. Depression. 4. Hidradenitis suppurativa with history of surgery and antibiotics. 5. Crohn's disease. 6. Anemia. 7. Allergies to azathioprine, bisacodyl, docusate, iodine contrast, latex, Silver tape, and vancomycin. 8. MAR was noted. 9. Case was discussed with RN. 10. Family history is noncontributory. 11. Social history is negative. 12. Continue treatment per primary consultants. Subjective Constitutional: Reports: fever, fatigue HEENT: Reports: congestion Respiratory: Reports: shortness of breath Cardiovascular: Reports: chest pain Gastrointestinal/Abdominal: Reports: nausea, vomiting, diarrhea Genitourinary: Reports: other - + santana Neurologic: Denies: headache Psychiatric: Denies: depression Skin: Denies: rash Hematologic: Denies: bleeding Musculoskeletal: Reports: pain - right axilla pain persists Allergies: Coded Allergies: SILVER (Verified Allergy, Mild, 06/13/18) AZATHIOPRINE (Verified Allergy, Unknown, 05/15/18) DOCUSATE (Verified Allergy, Unknown, 05/15/18) ok for oral LATEX (Verified Allergy, Unknown, 05/15/18) VANCOMYCIN (Verified Allergy, Unknown, 05/15/18) BISACODYL (Verified Adverse Reaction, Severe, Rash, 05/15/18) Uncoded Allergies: IODINE CONTRAST (Allergy, Unknown, 05/15/18) TAPE (Allergy, Unknown, 05/15/18) Objective Vital Signs Last 24 Hour Vital Signs Date Time Temp Pulse Resp B/P (MAP) Pulse Ox O2 Delivery O2 Flow Rate FiO2 09/24/18 13:23 97.5 93 16 111/68 100 Nasal Cannula 3 09/24/18 13:15 89 17 103/63 100 Nasal Cannula 3 09/24/18 13:00 91 20 102/59 100 Nasal Cannula 3 09/24/18 12:45 90 17 100/65 100 Simple Mask 6 09/24/18 12:40 98 16 97/60 100 Simple Mask 6 09/24/18 12:30 95 20 95/60 100 Simple Mask 6 09/24/18 12:21 98 24 98 09/24/18 12:20 100 18 108/57 100 Simple Mask 6 09/24/18 12:16 97.3 106 24 112/64 100 Simple Mask 6 09/24/18 09:00 Room Air 09/24/18 04:00 16 09/24/18 04:00 98.9 83 16 104/61 (75) 98 09/24/18 00:00 98.5 98 15 96/61 (73) 95 09/24/18 00:00 15 09/23/18 22:00 Room Air 09/23/18 20:00 98.1 100 17 94/60 (71) 98 09/23/18 20:00 17 09/23/18 17:56 99.0 09/23/18 16:00 18 09/23/18 16:00 99.0 88 20 101/60 (74) 97 Height (Feet): 5 Height (Inches): 5.00 Weight (Pounds): 187 General Appearance: no acute distress HEENT: normocephalic, atraumatic, anicteric, mucous membranes moist Respiratory/Chest: lungs clear, normal breath sounds, no respiratory distress, no accessory muscle use Cardiovascular: normal rate, regular rhythm, no gallop/murmur, no JVD Abdomen: normal bowel sounds, soft, non tender, no organomegaly, non distended Genitourinary: other - no santana Extremities: no cyanosis Skin: no rash Neurologic/Psychiatric: websphere commerce developer II-XII grossly normal, alert, oriented x 3, responsive Lymphatic: no neck adenopathy Musculoskeletal: no effusion Objective no imaging Microbiology Date/Time Source Procedure Growth Status 09/19/18 08:02 Axilla Right Gram Stain - Final Complete 09/19/18 08:02 Aerobic Culture - Final Staphylococcus Sp Coag Neg Complete 09/19/18 08:02 Axilla Right Anaerobic Culture - Final NO ANAEROBES ISOLATED Complete Laboratory Tests Test 09/24/18 05:50 White Blood Count 8.9 K/UL (4.8-10.8) Red Blood Count 4.04 M/UL (4.20-5.40) L Hemoglobin 11.2 G/DL (12.0-16.0) L Hematocrit 35.1 % (37.0-47.0) L Mean Corpuscular Volume 87 FL (80-99) Mean Corpuscular Hemoglobin 27.6 PG (27.0-31.0) Mean Corpuscular Hemoglobin Concent 31.8 G/DL (32.0-36.0) L Red Cell Distribution Width 12.8 % (11.6-14.8) Platelet Count 298 K/UL (150-450) Mean Platelet Volume 5.7 FL (6.5-10.1) L Neutrophils (%) (Auto) 60.3 % (45.0-75.0) Lymphocytes (%) (Auto) 30.7 % (20.0-45.0) Monocytes (%) (Auto) 6.1 % (1.0-10.0) Eosinophils (%) (Auto) 2.2 % (0.0-3.0) Basophils (%) (Auto) 0.6 % (0.0-2.0) Prothrombin Time 9.9 SEC (9.30-11.50) Prothromb Time International Ratio 0.9 (0.9-1.1) Sodium Level 137 MMOL/L (136-145) Potassium Level 4.0 MMOL/L (3.5-5.1) Chloride Level 104 MMOL/L (98-107) Carbon Dioxide Level 28 MMOL/L (21-32) Anion Gap 5 mmol/L (5-15) Blood Urea Nitrogen 6 mg/dL (7-18) L Creatinine 0.8 MG/DL (0.55-1.30) Estimat Glomerular Filtration Rate > 60 mL/min (>60) Glucose Level 105 MG/DL (74-106) Calcium Level 8.9 MG/DL (8.5-10.1) Current Medications Medications (Trade) Dose Ordered Sig/Alix Route PRN Reason Start Time Stop Time Status Last Admin Dose Admin Acetaminophen (Tylenol) 650 mg Q4H PRN ORAL FEVER 09/24/18 10:45 10/24/18 10:44 Aripiprazole (Abilify) 2.5 mg DAILY ORAL 09/18/18 09:00 10/18/18 08:59 09/23/18 08:39 Chlorhexidine Gluconate (Magnolia-Hex 2%) 1 applic DAILY@1999 TOPIC 09/24/18 20:00 10/24/18 19:59 Daptomycin 500 mg/ Sodium Chloride 50 ml @ 100 mls/hr Q24H IV 09/18/18 15:00 09/25/18 14:59 09/23/18 15:13 Dextrose (Dextrose 50%) 25 ml Q30M PRN IV Hypoglycemia 09/17/18 21:15 10/17/18 21:14 Dextrose (Dextrose 50%) 50 ml Q30M PRN IV Hypoglycemia 09/17/18 21:15 10/17/18 21:14 Dextrose/Sodium Chloride 1,000 ml @ 75 mls/hr [id number] IV 09/18/18 18:30 10/18/18 18:29 09/24/18 06:53 Diphenhydramine HCl (Benadryl) 25 mg Q15M PRN IVP Itching 09/24/18 11:30 09/24/18 20:00 Diphenhydramine HCl (Benadryl) 50 mg Q6H PRN IVP Itching 09/20/18 18:00 10/18/18 17:59 09/24/18 13:12 Diphenhydramine HCl (Benadryl) 50 mg Q6H PRN ORAL Itching 09/21/18 18:15 10/21/18 18:14 Famotidine (Pepcid) 20 mg BID ORAL 09/18/18 09:00 10/18/18 08:59 09/23/18 17:26 Fluoxetine HCl (PROzac) 20 mg DAILY ORAL 09/18/18 09:00 10/18/18 08:59 09/23/18 08:40 Heparin Sodium (Porcine) (Heparin 5000 units/ml) 5,000 units EVERY 12 HOURS SUBQ 09/24/18 21:00 10/24/18 20:59 Heparin Sodium/ Sodium Chloride (Heparin 1000 units/500ml Premix) 1,000 unit ONCE PRN IV PICC 09/21/18 13:30 09/24/18 23:59 Hydromorphone HCl 30 ml @ 0 mls/hr Q24H PRN IV For Pain 09/24/18 10:45 09/26/18 10:44 Hydromorphone HCl (Dilaudid) 0.5 mg Q5M PRN IVP Severe Pain (Pain Scale 7-10) 09/24/18 11:30 09/24/18 20:00 Hydromorphone HCl (Dilaudid) 2 mg Q2H PRN SUBQ FOR BREAKTHRU PAIN (7-10) 09/21/18 18:15 09/28/18 18:14 Hydromorphone HCl (Dilaudid) 2 mg Q4H PRN IVP FOR BREAKTHRU PAIN (4-6) 09/19/18 11:00 09/26/18 10:59 09/24/18 07:37 Hydromorphone HCl (Dilaudid) 2 mg Q4H PRN SUBQ Severe Pain (Pain Scale 7-10) 09/21/18 18:15 09/28/18 18:14 Ketorolac Tromethamine (Toradol 30mg) 30 mg Q1H PRN IV Severe Breakthru Pain (>7) 09/24/18 11:30 09/24/18 20:00 Lidocaine HCl (Xylocaine 1% 30ml) 30 ml ONCE PRN INJ picc 09/21/18 13:30 09/24/18 23:59 Lorazepam (Ativan) 1 mg Q6H PRN ORAL For Anxiety 09/17/18 21:15 09/24/18 21:14 Magnesium Hydroxide (Mom) 30 ml HSPRN PRN ORAL Constipation 09/17/18 21:15 10/17/18 21:14 Meperidine HCl (Demerol) 25 mg Q15M PRN IV chills 09/24/18 11:30 09/24/18 20:00 09/24/18 12:14 Metoclopramide HCl (Reglan) 10 mg Q1H PRN IVP Nausea & Vomiting 09/24/18 11:30 09/24/18 20:00 Midazolam HCl (Versed 2mg/2ml vial) 1 mg Q15M PRN IVP For Anxiety 09/24/18 11:30 09/24/18 20:00 Miscellaneous Medication (SUPERINTENDENT MARINE OIL TERMINAL Rate Change) 1 ea DAILY PRN MISC rate change 09/24/18 10:45 09/26/18 10:44 Miscellaneous Medication (SUPERINTENDENT MARINE OIL TERMINAL shift volume) 1 ea Q12HR@0700,1900 MISC 09/24/18 19:00 09/26/18 18:59 Naloxone HCl (Narcan) 0.1 mg PRN IV RR<10min OR SBP<90 mmHg OR 09/24/18 09:00 09/26/18 08:59 Ondansetron HCl (Zofran) 4 mg Q6H PRN IVP Nausea & Vomiting 09/19/18 07:45 10/19/18 07:44 Zolpidem Tartrate (Ambien) 5 mg DAILYPRN PRN ORAL Insomnia 09/19/18 07:45 09/26/18 07:44 Niya Holley MD Sep 24, 2018 14:30
--- NOTE | 2018-09-24 14:36 | General Progress Note ---
Assessment/Plan Status: stable Assessment/Plan: 22 year old female with PMH of Crohns disease, anxiety and hidradenitis suppurativa presents with pain in R axilla region with open wound with drainage. #History of hidradenitis suppurativa with recent R axilla drainage at OSH, #Right axillary pain and drainage, concern for infection and possible recurrence of abscess. #S/P Exploration of right axillary wound, Debridement of right axillary tissue s/p 2. Excision of new focus of hidradenitis suppurativa in the right axilla. 3. Rotational fasciocutaneous flap advancement closure of right axillary wound. (09/24) -ABX per by ID:[email or web address] -Plastic Surgery consult appreciated -Pain management consult appreciated -Cont Dilaudid DISH TECHNICIAN per pain management -monitor CBC and BMP -encourage incentive spirometer -scd for DVT until cleared by surgery for heparin sq -encouraged ambulation - Labs in AM for surgical procedure. - Activity as tolerated without weight bearing in the arms. #Anxiety -home meds restarted #History of Crohn's on Remicade -Remicade on hold for now -continue to monitor Code status Full Subjective Date patient seen: Sep 24, 2018 Allergies: Coded Allergies: SILVER (Verified Allergy, Mild, 06/13/18) AZATHIOPRINE (Verified Allergy, Unknown, 05/15/18) DOCUSATE (Verified Allergy, Unknown, 05/15/18) ok for oral LATEX (Verified Allergy, Unknown, 05/15/18) VANCOMYCIN (Verified Allergy, Unknown, 05/15/18) BISACODYL (Verified Adverse Reaction, Severe, Rash, 05/15/18) Uncoded Allergies: IODINE CONTRAST (Allergy, Unknown, 05/15/18) TAPE (Allergy, Unknown, 05/15/18) Subjective surgery today on film technician pump and states pain is not controlled, rn clarified patient was initially not using film technician and has been instructed to do so, prns available on dapto pain control Objective Last 24 Hour Vital Signs Date Time Temp Pulse Resp B/P (MAP) Pulse Ox O2 Delivery O2 Flow Rate FiO2 09/24/18 13:23 97.5 93 16 111/68 100 Nasal Cannula 3 09/24/18 13:15 89 17 103/63 100 Nasal Cannula 3 09/24/18 13:00 91 20 102/59 100 Nasal Cannula 3 09/24/18 12:45 90 17 100/65 100 Simple Mask 6 09/24/18 12:40 98 16 97/60 100 Simple Mask 6 09/24/18 12:30 95 20 95/60 100 Simple Mask 6 09/24/18 12:21 98 24 98 09/24/18 12:20 100 18 108/57 100 Simple Mask 6 09/24/18 12:16 97.3 106 24 112/64 100 Simple Mask 6 09/24/18 09:00 Room Air 09/24/18 04:00 16 09/24/18 04:00 98.9 83 16 104/61 (75) 98 09/24/18 00:00 98.5 98 15 96/61 (73) 95 09/24/18 00:00 15 09/23/18 22:00 Room Air 09/23/18 20:00 98.1 100 17 94/60 (71) 98 09/23/18 20:00 17 09/23/18 17:56 99.0 09/23/18 16:00 18 09/23/18 16:00 99.0 88 20 101/60 (74) 97 Intake and Output 09/23/18 09/24/18 18:59 06:59 Intake Total 3076 ml 915 ml Balance 3076 ml 915 ml Intake Oral 2101 ml 240 ml IV Total 975 ml 675 ml # Voids 3 1 # Bowel Movements 1 1 Laboratory Tests 09/24/18 05:50: White Blood Count 8.9, Red Blood Count 4.04L, Hemoglobin 11.2L, Hematocrit 35.1L , Mean Corpuscular Volume 87, Mean Corpuscular Hemoglobin 27.6, Mean Corpuscular Hemoglobin Concent 31.8L, Red Cell Distribution Width 12.8, Platelet Count 298, Mean Platelet Volume 5.7L, Neutrophils (%) (Auto) 60.3, Lymphocytes (%) (Auto) 30.7, Monocytes (%) (Auto) 6.1, Eosinophils (%) (Auto) 2.2, Basophils (%) (Auto) 0.6, Prothrombin Time 9.9, Prothromb Time International Ratio 0.9, Sodium Level 137, Potassium Level 4.0, Chloride Level 104, Carbon Dioxide Level 28, Anion Gap 5, Blood Urea Nitrogen 6L, Creatinine 0.8, Estimat Glomerular Filtration Rate > 60, Glucose Level 105, Calcium Level 8.9 Height (Feet): 5 Height (Inches): 5.00 Weight (Pounds): 187 General Appearance: WD/WN, no apparent distress, alert Neck: non-tender, normal alignment, supple Cardiovascular: normal peripheral pulses, normal rate, regular rhythm Respiratory/Chest: lungs clear, other - right axillary wound dressed c/d/i, tender to palpation Abdomen: normal bowel sounds, non tender, soft Extremities: normal range of motion, non-tender Edema: no edema noted Arm (L), no edema noted Arm (R), no edema noted Leg (L), no edema noted Leg (R), no edema noted Pedal (L), no edema noted Pedal (R), no edema noted Generalized Neurologic: social problems specialist II-XII grossly normal Antonina Burleson DO Sep 24, 2018 14:36
[2018-09-24] MEDS: DAPTOmycin 500 MG in NS 50 ML IV SCH (15:09)
--- NOTE | 2018-09-24 17:45 | General Progress Note ---
Assessment/Plan Assessment/Plan: (1) Right Axillary pain (2) Right axillary abscess with hidradenitis suppurativa (3) S/p Exploration of right axillary wound and flap placement Patient will be continued on REPAIRER AND CHECKER Dilaudid and Dilaudid breakthrough. D/w Dr. Long and he concurred. Subjective Date patient seen: Sep 24, 2018 Time patient seen: 05:30 - pm Allergies: Coded Allergies: SILVER (Verified Allergy, Mild, 06/13/18) AZATHIOPRINE (Verified Allergy, Unknown, 05/15/18) DOCUSATE (Verified Allergy, Unknown, 05/15/18) ok for oral LATEX (Verified Allergy, Unknown, 05/15/18) VANCOMYCIN (Verified Allergy, Unknown, 05/15/18) BISACODYL (Verified Adverse Reaction, Severe, Rash, 05/15/18) Uncoded Allergies: IODINE CONTRAST (Allergy, Unknown, 05/15/18) TAPE (Allergy, Unknown, 05/15/18) Subjective Constitutional: Reports: no symptoms HEENT: Reports: no symptoms Cardiovascular: Reports: no symptoms Respiratory: Reports: no symptoms Gastrointestinal/Abdominal: Reports: no symptoms Genitourinary: Reports: no symptoms Neurologic/Psychiatric: Reports: no symptoms Endocrine: Reports: no symptoms Hematologic/Lymphatic: Reports: no symptoms Subjective Patient is in bed, mother at bedside. Pt is s/p flap placement, REPAIRER AND CHECKER Dilaudid was continued and has used 5mg since surgery. She has no new complaints at this time. Objective Last 24 Hour Vital Signs Date Time Temp Pulse Resp B/P (MAP) Pulse Ox O2 Delivery O2 Flow Rate FiO2 09/24/18 16:00 99.4 20 101/64 (76) 95 09/24/18 13:23 97.5 93 16 111/68 100 Nasal Cannula 3 09/24/18 13:15 89 17 103/63 100 Nasal Cannula 3 09/24/18 13:00 91 20 102/59 100 Nasal Cannula 3 09/24/18 12:45 90 17 100/65 100 Simple Mask 6 09/24/18 12:40 98 16 97/60 100 Simple Mask 6 09/24/18 12:30 95 20 95/60 100 Simple Mask 6 09/24/18 12:21 98 24 98 09/24/18 12:20 100 18 108/57 100 Simple Mask 6 09/24/18 12:16 97.3 106 24 112/64 100 Simple Mask 6 09/24/18 09:00 Room Air 09/24/18 04:00 16 09/24/18 04:00 98.9 83 16 104/61 (75) 98 09/24/18 00:00 98.5 98 15 96/61 (73) 95 09/24/18 00:00 15 09/23/18 22:00 Room Air 09/23/18 20:00 98.1 100 17 94/60 (71) 98 09/23/18 20:00 17 09/23/18 17:56 99.0 Intake and Output 09/23/18 09/24/18 19:00 07:00 Intake Total 3001 ml 915 ml Balance 3001 ml 915 ml Intake Oral 2101 ml 240 ml IV Total 900 ml 675 ml # Voids 3 1 # Bowel Movements 1 1 Laboratory Tests 09/24/18 05:50: White Blood Count 8.9, Red Blood Count 4.04L, Hemoglobin 11.2L, Hematocrit 35.1L , Mean Corpuscular Volume 87, Mean Corpuscular Hemoglobin 27.6, Mean Corpuscular Hemoglobin Concent 31.8L, Red Cell Distribution Width 12.8, Platelet Count 298, Mean Platelet Volume 5.7L, Neutrophils (%) (Auto) 60.3, Lymphocytes (%) (Auto) 30.7, Monocytes (%) (Auto) 6.1, Eosinophils (%) (Auto) 2.2, Basophils (%) (Auto) 0.6, Prothrombin Time 9.9, Prothromb Time International Ratio 0.9, Sodium Level 137, Potassium Level 4.0, Chloride Level 104, Carbon Dioxide Level 28, Anion Gap 5, Blood Urea Nitrogen 6L, Creatinine 0.8, Estimat Glomerular Filtration Rate > 60, Glucose Level 105, Calcium Level 8.9 Height (Feet): 5 Height (Inches): 5.00 Weight (Pounds): 187 Objective General Appearance: no apparent distress, alert EENT: PERRL/EOMI, normal ENT inspection Neck: non-tender, normal alignment Cardiovascular: normal rate, regular rhythm Respiratory/Chest: lungs clear, normal breath sounds Abdomen: non tender, soft Extremities: other - right axilla bandages noted Edema: no edema noted Arm (L), no edema noted Arm (R), no edema noted Leg (L), no edema noted Leg (R), no edema noted Pedal (L), no edema noted Pedal (R), no edema noted Generalized Neurologic: alert, oriented x 3 Skin: normal pigmentation Hao Aldana Sep 24, 2018 17:45
--- NOTE | 2018-09-24 18:00 | Operative Note - Dictated ---
DATE OF OPERATION: 09/24/2018 PREOPERATIVE DIAGNOSIS: Open right axillary wound. POSTOPERATIVE DIAGNOSES: 1. Open right axillary wound. 2. Finding of a new focus of hidradenitis suppurativa. PROCEDURES: 1. Preparation of right axillary wound bed for flap closure. 2. Excision of new focus of hidradenitis suppurativa in the right axilla. 3. Rotational fasciocutaneous flap advancement closure of right axillary wound. SURGEON: Sagar Brambila M.D. SORTING SUPERVISOR: Enzo Escalante M.D. ANESTHESIA: General. COMPLICATIONS: None. DRAINS: Included a size 7 Amor-Stuart drain. DISPOSITION: Stable to the recovery room. INDICATIONS FOR SURGERY: This is a 23-year-old female, who was admitted last week with the acutely infected and painful right axillary abscess associated with hidradenitis suppurativa. She underwent radical excision of the involved tissue at that time and has undergone dressing changes. During that time, her symptoms have improved slightly, however, she continued to have some pain still in the area of the wound. We discussed that she would need a definitive flap closure of her wound and that if we were to find any other additional areas of hidradenitis, we would remove it at that time. She understood the risks and benefits of surgery and agreed to proceed. DETAILS OF THE OPERATION: The patient was brought to the operating room and laid in the supine position on the operating room table. Her right axilla, lateral right chest, and right upper arm were prepped and draped in a sterile and usual fashion. The wound measured approximately 25 square cm from the previous excision. We examined the wound and its wounds base. We did not find any areas of active disease. However at the 9 o'clock position of the wound, we did find an area of induration, which was consistent with possible disease. A wedge excision was designed around this area and once we cut into it, we noted that there was some purulent material present. We then proceeded to complete our wedge excision completely excising the area of infection and disease. This area was copiously irrigated with pulse lavage and with removal of this hidradenitis focus, we ascertained that there was no remnant disease left behind. Once again, the wound was copiously irrigated with pulse lavage both in the area of the old wound as well as the new defect that resulted from the excision of the hidradenitis and once hemostasis was achieved, we then proceeded to design a rotation advancement flap that was inferiorly based and based off of perforators coming off of the thoracodorsal artery. A J shaped curved incision was made to elevate the flap. Dissection was carried down all the way to the level of the axillary fascia. The flap was elevated from the deep tissue. With the flap fully elevated, we noted that there was good bleeding at the flap edge and the flap was then inset into the defect using #0 and 2-0 Vicryl sutures. Once the defect was completely closed in a tension-free manner, using the deep Vicryl sutures, the flap was then further secured at the skin level using a combination of running and interrupted 2-0 and 3-0 Prolene sutures. The donor site of the flap harvest was closed in a similar fashion. The Amor-Stuart drain was secured in place with a 4-0 nylon and this completed the preparation of right axillary wound measuring 25 centimeter square with removal of a new focus of hidradenitis as well as rotational flap advancement closure of right axillary wound. The patient tolerated the procedure well. All needle and sponge counts were correct and there were no complications. Sagar Brambila M.D. DR: DIANA JOB#: [id number] CC: QUENTIN
[2018-09-24] MEDS ORDERED: Dyna-Hex 2% Top Sol 2oz TOPIC SCH (20:00)
[2018-09-25] VITALS: BP 95/62
[2018-09-25] MEDS: DiphenhydrAMINE 50mg/ml Inj IVP PRN (03:17)
[2018-09-25 04:00] VITALS: BP 98/59
[2018-09-25] MEDS: PCA shift volume MISC SCH (07:00)
[2018-09-25 08:00] VITALS: BP 88/55
--- NOTE | 2018-09-25 08:50 | General Progress Note ---
Assessment/Plan Assessment/Plan: (1) Right Axillary pain (2) Right axillary abscess with hidradenitis suppurativa (3) S/p Exploration of right axillary wound and flap placement Patient will be continued on COAL TRAMMER Dilaudid and Dilaudid will be reduced to 1mg IV Q4H PRN severe breakthrough and start Percocet 10/325mg PO 1 tab Q4H Severe pain to transition to oral pain medication. D/w Dr. Long and he concurred. Subjective Date patient seen: Sep 25, 2018 Time patient seen: 08:00 - am Allergies: Coded Allergies: SILVER (Verified Allergy, Mild, 06/13/18) AZATHIOPRINE (Verified Allergy, Unknown, 05/15/18) DOCUSATE (Verified Allergy, Unknown, 05/15/18) ok for oral LATEX (Verified Allergy, Unknown, 05/15/18) VANCOMYCIN (Verified Allergy, Unknown, 05/15/18) BISACODYL (Verified Adverse Reaction, Severe, Rash, 05/15/18) Uncoded Allergies: IODINE CONTRAST (Allergy, Unknown, 05/15/18) TAPE (Allergy, Unknown, 05/15/18) Subjective Constitutional: Reports: no symptoms HEENT: Reports: no symptoms Cardiovascular: Reports: no symptoms Respiratory: Reports: no symptoms Gastrointestinal/Abdominal: Reports: no symptoms Genitourinary: Reports: no symptoms Neurologic/Psychiatric: Reports: no symptoms Endocrine: Reports: no symptoms Hematologic/Lymphatic: Reports: no symptoms Subjective Patient is in bed mother at bedside. Pain has been stable. Has used 8mg of the COAL TRAMMER in the last 24hrs and 4 doses of Dilaudid IV for breakthrough. At this time I d/w patient about reducing the Dilaudid IV to 1mg and starting her on Percocet to transition her to oral medication in anticipation for discharge. She seems to understand. Objective Last 24 Hour Vital Signs Date Time Temp Pulse Resp B/P (MAP) Pulse Ox O2 Delivery O2 Flow Rate FiO2 09/25/18 08:00 18 09/25/18 08:00 99.4 112 16 88/55 (66) 94 09/25/18 04:00 98.7 96 18 98/59 (72) 96 09/25/18 04:00 18 09/25/18 00:00 98.9 99 17 95/62 (73) 92 8/6/19 00:00 17 09/24/18 21:00 Room Air 09/24/18 20:00 99.5 99 18 104/55 (71) 92 09/24/18 20:00 18 09/24/18 16:00 99.4 20 101/64 (76) 95 09/24/18 13:23 97.5 93 16 111/68 100 Nasal Cannula 3 09/24/18 13:15 89 17 103/63 100 Nasal Cannula 3 09/24/18 13:00 91 20 102/59 100 Nasal Cannula 3 09/24/18 12:45 90 17 100/65 100 Simple Mask 6 09/24/18 12:40 98 16 97/60 100 Simple Mask 6 09/24/18 12:30 95 20 95/60 100 Simple Mask 6 09/24/18 12:21 98 24 98 09/24/18 12:20 100 18 108/57 100 Simple Mask 6 09/24/18 12:16 97.3 106 24 112/64 100 Simple Mask 6 09/24/18 09:00 Room Air Intake and Output 09/24/18 09/25/18 19:00 07:00 Intake Total 950 ml 480 ml Output Total 20 ml Balance 950 ml 460 ml Intake Oral 300 ml 480 ml IV Total 650 ml Output Drainage Total 20 ml # Voids 3 # Bowel Movements 1 1 Height (Feet): 5 Height (Inches): 5.00 Weight (Pounds): 187 Objective General Appearance: no apparent distress, alert EENT: PERRL/EOMI, normal ENT inspection Neck: non-tender, normal alignment Cardiovascular: normal rate, regular rhythm Respiratory/Chest: lungs clear, normal breath sounds Abdomen: non tender, soft Extremities: other - right axilla bandages noted Edema: no edema noted Arm (L), no edema noted Arm (R), no edema noted Leg (L), no edema noted Leg (R), no edema noted Pedal (L), no edema noted Pedal (R), no edema noted Generalized Neurologic: alert, oriented x 3 Skin: normal pigmentation Hao Aldana Sep 25, 2018 08:50
[2018-09-25] MEDS: Heparin 5000 units/ml inj SUBQ SCH ×2 (09:34→21:00)
[2018-09-25] MEDS: D5 1/2NS 1,000 ML IV SCH ×2 (10:30→15:10)
--- NOTE | 2018-09-25 11:17 | 48 Hour Post Anesthesia Eval ---
Post Anesthesia Evaluation Procedure: Revision and closure of R axillary wound Date of Evaluation: Sep 25, 2018 Time of Evaluation: 09:55 Blood Pressure Systolic: 104 0: 54 Pulse Rate: 84 Respiratory Rate: 22 Temperature (Fahrenheit): 97.8 O2 Sat by Pulse Oximetry: 97 Airway: patent Nausea: Yes Vomiting: Yes Pain Intensity: 3 Hydration Status: adequate Cardiopulmonary Status: stable Mental Status/LOC: patient returned to baseline Follow-up Care/Observations: n/a Post-Anesthesia Complications: none Follow-up care needed: N/A Baudilio Garnett MD Sep 25, 2018 11:17
[2018-09-25] MEDS: Miralax 17gm pkt ORAL PRN ×2 (11:39→13:02)
[2018-09-25 12:00] VITALS: BP 117/66
[2018-09-25] MEDS: HYDROmorphone 1mg/ml Carpuject IVP PRN ×2 (13:01→19:42)
--- NOTE | 2018-09-25 13:31 | General Progress Note ---
Progress Note Progress Note Pt seen and examined. POD# 1 from closure of right axillary wound. Dressings are CDI and pain is controlled. Plan to take down dressings in 48 hours with discharge soon to follow. Continue IV abx and pain control.Patient to ambulate. MD Patty Varma Amir MD Sep 25, 2018 13:31
[2018-09-25] MEDS ORDERED: D5 1/2NS 1000ml IV ONE (14:48)
--- NOTE | 2018-09-25 14:51 | General Progress Note ---
Assessment/Plan Assessment/Plan: Internal Medicine Hospitalist Progress Note if after normal hours: 6p-8a please call [phone] 22 year old female with PMH of Crohns disease, anxiety and hidradenitis suppurativa presents with pain in R axilla region with open wound with drainage. #History of hidradenitis suppurativa with recent R axilla drainage at OSH, #Right axillary pain and drainage, concern for infection and possible recurrence of abscess. #S/P Exploration of right axillary wound, Debridement of right axillary tissue s/p 2. Excision of new focus of hidradenitis suppurativa in the right axilla. 3. Rotational fasciocutaneous flap advancement closure of right axillary wound. (09/24) -ABX per by ID:[email or web address] -Plastic Surgery consult appreciated -Pain management consult appreciated -Cont Dilaudid SOLE TRIMMER per pain management -monitor CBC and BMP -encourage incentive spirometer -scd for DVT until cleared by surgery for heparin sq -encouraged ambulation - Labs in AM for surgical procedure. - Activity as tolerated without weight bearing in the arms. - dipso plan : monday if medically cleared # Hypotension from medication - resolved #Anxiety -home meds restarted #History of Crohn's on Remicade -Remicade on hold for now -continue to monitor # N/V 2/2 pain meds - symptom control - zofran, compazine or scopolamine as needed Code status Full Subjective Date patient seen: Sep 25, 2018 Time patient seen: 12:30 Allergies: Coded Allergies: SILVER (Verified Allergy, Mild, 06/13/18) AZATHIOPRINE (Verified Allergy, Unknown, 05/15/18) DOCUSATE (Verified Allergy, Unknown, 05/15/18) ok for oral LATEX (Verified Allergy, Unknown, 05/15/18) VANCOMYCIN (Verified Allergy, Unknown, 05/15/18) BISACODYL (Verified Adverse Reaction, Severe, Rash, 05/15/18) Uncoded Allergies: IODINE CONTRAST (Allergy, Unknown, 05/15/18) TAPE (Allergy, Unknown, 05/15/18) Subjective surgeries completed yesterday patient c/o of n/v today using sustainability executive director vss Objective Last 24 Hour Vital Signs Date Time Temp Pulse Resp B/P (MAP) Pulse Ox O2 Delivery O2 Flow Rate FiO2 8/6/19 13:31 99.8 09/25/18 12:14 99.8 09/25/18 12:00 99.8 114 16 117/66 (83) 96 09/25/18 11:17 84 22 97 09/25/18 09:00 Room Air 09/25/18 08:00 18 09/25/18 08:00 99.4 112 16 88/55 (66) 94 09/25/18 04:00 98.7 96 18 98/59 (72) 96 09/25/18 04:00 18 09/25/18 00:00 98.9 99 17 95/62 (73) 92 09/25/18 00:00 17 09/24/18 21:00 Room Air 09/24/18 20:00 99.5 99 18 104/55 (71) 92 09/24/18 20:00 18 09/24/18 16:00 99.4 20 101/64 (76) 95 Intake and Output 09/24/18 09/25/18 18:59 06:59 Intake Total 950 ml 480 ml Output Total 20 ml Balance 950 ml 460 ml Intake Oral 300 ml 480 ml IV Total 650 ml Output Drainage Total 20 ml # Voids 3 # Bowel Movements 1 1 Height (Feet): 5 Height (Inches): 5.00 Weight (Pounds): 187 General Appearance: WD/WN, no apparent distress, alert EENT: PERRL/EOMI Neck: non-tender, normal alignment, supple Cardiovascular: normal peripheral pulses, normal rate, regular rhythm Respiratory/Chest: lungs clear, normal breath sounds, other - right axillary wound dressed c/d/i Abdomen: normal bowel sounds, non tender, soft Extremities: normal range of motion, non-tender Edema: no edema noted Arm (L), no edema noted Arm (R), no edema noted Leg (L), no edema noted Leg (R), no edema noted Pedal (L), no edema noted Pedal (R), no edema noted Generalized Neurologic: fisher scallop II-XII grossly normal, oriented x 3, responsive Antonina Burleson DO Sep 25, 2018 14:51
[2018-09-25] MEDS: DAPTOmycin 500 MG in NS 50 ML IV SCH (15:06)
[2018-09-25 15:51] LABS: BASOPHILS % (AUTO) 0.9 % (0.0-2.0); EOSINOPHILS % (AUTO) 0.2 % (0.0-3.0); HEMATOCRIT 32.4 % (37.0-47.0); HEMOGLOBIN 10.5 G/DL (12.0-16.0); LYMPHOCYTES % (AUTO) 15.5 % (20.0-45.0); MEAN CORPUSCULAR VOLUME 86 FL (80-99); MONOCYTES % (AUTO) 3.6 % (1.0-10.0); NEUTROPHILS % (AUTO) 79.7 % (45.0-75.0); PLATELET COUNT 277 K/UL (150-450); RED BLOOD COUNT 3.77 M/UL (4.20-5.40); RED CELL DISTRIBUTION WIDTH 14.6 % (11.6-14.8); WHITE BLOOD COUNT 14.6 K/UL (4.8-10.8)
[2018-09-25 16:00] VITALS: BP 138/66
[2018-09-25 16:11] LABS: CREATINE KINASE 92 U/L (26-308)
[2018-09-25 20:00] VITALS: BP 93/53
[2018-09-26] VITALS: BP 98/54
[2018-09-26] MEDS: HYDROmorphone 1mg/ml Carpuject IVP PRN ×4 (01:43→17:34)
[2018-09-26 04:00] VITALS: BP 84/52
[2018-09-26] MEDS: D5 1/2NS 1,000 ML IV SCH (05:56)
[2018-09-26] MEDS: DiphenhydrAMINE 50mg/ml Inj IVP PRN ×2 (07:11→13:21)
[2018-09-26 08:00] VITALS: BP 99/55
[2018-09-26] MEDS: Heparin 5000 units/ml inj SUBQ SCH ×2 (08:08→21:04)
--- NOTE | 2018-09-26 08:42 | General Progress Note ---
Assessment/Plan Assessment/Plan: (1) Right Axillary pain (2) Right axillary abscess with hidradenitis suppurativa (3) S/p Exploration of right axillary wound and flap placement Patient will be continued on Dilaudid and Percocet D/w Dr. Long and he concurred. Subjective Date patient seen: Sep 26, 2018 Time patient seen: 07:00 - am Allergies: Coded Allergies: SILVER (Verified Allergy, Mild, 06/13/18) AZATHIOPRINE (Verified Allergy, Unknown, 05/15/18) DOCUSATE (Verified Allergy, Unknown, 05/15/18) ok for oral LATEX (Verified Allergy, Unknown, 05/15/18) VANCOMYCIN (Verified Allergy, Unknown, 05/15/18) BISACODYL (Verified Adverse Reaction, Severe, Rash, 05/15/18) Uncoded Allergies: IODINE CONTRAST (Allergy, Unknown, 05/15/18) TAPE (Allergy, Unknown, 05/15/18) Subjective Constitutional: Reports: no symptoms HEENT: Reports: no symptoms Cardiovascular: Reports: no symptoms Respiratory: Reports: no symptoms Gastrointestinal/Abdominal: Reports: no symptoms Genitourinary: Reports: no symptoms Neurologic/Psychiatric: Reports: no symptoms Endocrine: Reports: no symptoms Hematologic/Lymphatic: Reports: no symptoms Subjective Patient is in bed. Pain has been reducing and is using the Dilaudid IV and Percocet. MANAGER ENDOSCOPY was discontinued. She has no new complaints at this time. Objective Last 24 Hour Vital Signs Date Time Temp Pulse Resp B/P (MAP) Pulse Ox O2 Delivery O2 Flow Rate FiO2 09/26/18 08:15 Room Air 09/26/18 08:00 98.8 99 20 99/55 (70) 96 09/26/18 04:00 98.8 100 16 84/52 (63) 94 09/26/18 00:00 99.0 107 17 98/54 (69) 94 09/25/18 21:00 Room Air 09/25/18 20:00 99.5 117 18 93/53 (66) 92 09/25/18 17:37 98.5 09/25/18 16:00 98.5 105 17 138/66 (90) 94 09/25/18 13:31 99.8 09/25/18 12:00 99.8 114 16 117/66 (83) 96 09/25/18 11:17 84 22 97 09/25/18 09:00 Room Air Intake and Output 09/25/18 09/26/18 19:00 07:00 Intake Total 2600 ml 1230 ml Output Total 20 ml Balance 2600 ml 1210 ml Intake Oral 1700 ml 480 ml IV Total 900 ml 750 ml Output Drainage Total 20 ml # Voids 2 Laboratory Tests 09/25/18 14:48: White Blood Count 14.6#H, Red Blood Count 3.77L, Hemoglobin 10.5L, Hematocrit 32.4L, Mean Corpuscular Volume 86, Mean Corpuscular Hemoglobin 27.9, Mean Corpuscular Hemoglobin Concent 32.5, Red Cell Distribution Width 14.6, Platelet Count 277, Mean Platelet Volume 5.1L, Neutrophils (%) (Auto) 79.7H, Lymphocytes (%) (Auto) 15.5L, Monocytes (%) (Auto) 3.6, Eosinophils (%) (Auto) 0.2, Basophils (%) (Auto) 0.9, Total Creatine Kinase 92 Height (Feet): 5 Height (Inches): 5.00 Weight (Pounds): 189 Objective General Appearance: no apparent distress, alert EENT: PERRL/EOMI, normal ENT inspection Neck: non-tender, normal alignment Cardiovascular: normal rate, regular rhythm Respiratory/Chest: lungs clear, normal breath sounds Abdomen: non tender, soft Extremities: other - right axilla bandages noted Edema: no edema noted Arm (L), no edema noted Arm (R), no edema noted Leg (L), no edema noted Leg (R), no edema noted Pedal (L), no edema noted Pedal (R), no edema noted Generalized Neurologic: alert, oriented x 3 Skin: normal pigmentation Hao Aldana Sep 26, 2018 08:42
[2018-09-26 12:00] VITALS: BP 95/53
[2018-09-26] MEDS ORDERED: D5 1/2NS 1000ml IV ONE (12:40)
--- NOTE | 2018-09-26 13:52 | General Progress Note ---
Assessment/Plan Assessment/Plan: 22 year old female with PMH of Crohns disease, anxiety and hidradenitis suppurativa presents with pain in R axilla region with open wound with drainage. #History of hidradenitis suppurativa with recent R axilla drainage at OSH, #Right axillary pain and drainage, concern for infection and possible recurrence of abscess. #S/P Exploration of right axillary wound, Debridement of right axillary tissue s/p 2. Excision of new focus of hidradenitis suppurativa in the right axilla. 3. Rotational fasciocutaneous flap advancement closure of right axillary wound. (09/24) -ABX per by ID:[email or web address] -Plastic Surgery consult appreciated -Pain management consult appreciated -Cont Dilaudid ENTRY PROCESSOR per pain management -monitor CBC and BMP -encourage incentive spirometer -encouraged ambulation - Activity as tolerated without weight bearing in the arms. - dipso plan : monday if medically cleared # Hypotension from medication - resolved #Anxiety -home meds restarted #History of Crohn's on Remicade -Remicade on hold for now -continue to monitor # N/V 2/2 pain meds- resolved - symptom control - zofran, compazine or scopolamine as needed Code status Full Subjective Date patient seen: Sep 26, 2018 Time patient seen: 14:00 ROS Limited/Unobtainable: No Allergies: Coded Allergies: SILVER (Verified Allergy, Mild, 06/13/18) AZATHIOPRINE (Verified Allergy, Unknown, 05/15/18) DOCUSATE (Verified Allergy, Unknown, 05/15/18) ok for oral LATEX (Verified Allergy, Unknown, 05/15/18) VANCOMYCIN (Verified Allergy, Unknown, 05/15/18) BISACODYL (Verified Adverse Reaction, Severe, Rash, 05/15/18) Uncoded Allergies: IODINE CONTRAST (Allergy, Unknown, 05/15/18) TAPE (Allergy, Unknown, 05/15/18) Subjective nausea resolved patient ate breakfast and denies vomiting pain controlled Objective Last 24 Hour Vital Signs Date Time Temp Pulse Resp B/P (MAP) Pulse Ox O2 Delivery O2 Flow Rate FiO2 09/26/18 12:00 97.8 93 18 95/53 (67) 93 09/26/18 08:15 Room Air 09/26/18 08:00 98.8 99 20 99/55 (70) 96 8/7/19 04:00 98.8 100 16 84/52 (63) 94 09/26/18 00:00 99.0 107 17 98/54 (69) 94 09/25/18 21:00 Room Air 09/25/18 20:00 99.5 117 18 93/53 (66) 92 09/25/18 17:37 98.5 09/25/18 16:00 98.5 105 17 138/66 (90) 94 Intake and Output 09/25/18 09/26/18 19:00 07:00 Intake Total 2600 ml 1230 ml Output Total 20 ml Balance 2600 ml 1210 ml Intake Oral 1700 ml 480 ml IV Total 900 ml 750 ml Output Drainage Total 20 ml # Voids 2 Laboratory Tests 09/25/18 14:48: White Blood Count 14.6#H, Red Blood Count 3.77L, Hemoglobin 10.5L, Hematocrit 32.4L, Mean Corpuscular Volume 86, Mean Corpuscular Hemoglobin 27.9, Mean Corpuscular Hemoglobin Concent 32.5, Red Cell Distribution Width 14.6, Platelet Count 277, Mean Platelet Volume 5.1L, Neutrophils (%) (Auto) 79.7H, Lymphocytes (%) (Auto) 15.5L, Monocytes (%) (Auto) 3.6, Eosinophils (%) (Auto) 0.2, Basophils (%) (Auto) 0.9, Total Creatine Kinase 92 Height (Feet): 5 Height (Inches): 5.00 Weight (Pounds): 189 Objective GEN: WWN, NAD, Alert CV: RRR, no M, R, G, no jvd RESP: CTAB, no w/r/c CHEST: right axilla wound dressed,c,d,i ABD: normal bowel sounds, soft, non tender EXT: normal muscle tone, no tenderness NEURO: grossly normal, no tremors, a x o x 3 Antonina Burleson DO Sep 26, 2018 13:52
--- NOTE | 2018-09-26 14:23 | Infectious Diseases Prog Note ---
Assessment/Plan Assessment/Plan ASSESSMENT AND PLAN: 1. right axilla abscess/cellulitis/infected hidradenitis suppurative/infected wound, pain, leukocytosis - difficult iv access per RN - will discontinue iv daptomycin and place on keflex and doxycycline (bactrim/augmentin gives GI upset per patient) - wound culture with golf cart repairer - likely contaminant - s/p debridement - s/p wound closure - monitor labs and leukocytosis - monitor pain - may need further imaging if persists - patient with vaginal itch per RN - will give and antifungal cream, d/w RN 2. Anxiety. 3. Depression. 4. Hidradenitis suppurativa with history of surgery and antibiotics. 5. Crohn's disease. 6. Anemia. 7. Allergies to azathioprine, bisacodyl, docusate, iodine contrast, latex, Silver tape, and vancomycin. 8. MAR was noted. 9. Case was discussed with RN. 10. Family history is noncontributory. 11. Social history is negative. 12. Continue treatment per primary consultants. Subjective Constitutional: Denies: fever HEENT: Denies: congestion Respiratory: Denies: shortness of breath Cardiovascular: Denies: chest pain Gastrointestinal/Abdominal: Denies: vomiting Psychiatric: Denies: depression Skin: Denies: rash Hematologic: Denies: bleeding Musculoskeletal: Denies: pain Allergies: Coded Allergies: SILVER (Verified Allergy, Mild, 06/13/18) AZATHIOPRINE (Verified Allergy, Unknown, 05/15/18) DOCUSATE (Verified Allergy, Unknown, 05/15/18) ok for oral LATEX (Verified Allergy, Unknown, 05/15/18) VANCOMYCIN (Verified Allergy, Unknown, 05/15/18) BISACODYL (Verified Adverse Reaction, Severe, Rash, 05/15/18) Uncoded Allergies: IODINE CONTRAST (Allergy, Unknown, 05/15/18) TAPE (Allergy, Unknown, 05/15/18) Objective Vital Signs Last 24 Hour Vital Signs Date Time Temp Pulse Resp B/P (MAP) Pulse Ox O2 Delivery O2 Flow Rate FiO2 09/26/18 12:00 97.8 93 18 95/53 (67) 93 09/26/18 08:15 Room Air 09/26/18 08:00 98.8 99 20 99/55 (70) 96 09/26/18 04:00 98.8 100 16 84/52 (63) 94 09/26/18 00:00 99.0 107 17 98/54 (69) 94 09/25/18 21:00 Room Air 09/25/18 20:00 99.5 117 18 93/53 (66) 92 09/25/18 17:37 98.5 09/25/18 16:00 98.5 105 17 138/66 (90) 94 Height (Feet): 5 Height (Inches): 5.00 Weight (Pounds): 189 General Appearance: no acute distress HEENT: normocephalic, atraumatic, anicteric, mucous membranes moist Respiratory/Chest: lungs clear, normal breath sounds, no respiratory distress, no accessory muscle use Cardiovascular: normal rate, regular rhythm, no gallop/murmur, no JVD Abdomen: normal bowel sounds, soft, non tender, no organomegaly, non distended Genitourinary: other - no santana Extremities: no cyanosis Skin: no rash 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/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: 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 grossly normal, alert, oriented x 3, responsive Lymphatic: no neck adenopathy Musculoskeletal: no effusion Objective no imaging Microbiology Date/Time Source Procedure Growth Status 09/19/18 08:02 Axilla Right Gram Stain - Final Complete 09/19/18 08:02 Aerobic Culture - Final Staphylococcus Sp Coag Neg Complete 09/19/18 08:02 Axilla Right Anaerobic Culture - Final NO ANAEROBES ISOLATED Complete Laboratory Tests Test 09/25/18 14:48 White Blood Count 14.6 K/UL (4.8-10.8) #H Red Blood Count 3.77 M/UL (4.20-5.40) L Hemoglobin 10.5 G/DL (12.0-16.0) L Hematocrit 32.4 % (37.0-47.0) L Mean Corpuscular Volume 86 FL (80-99) Mean Corpuscular Hemoglobin 27.9 PG (27.0-31.0) Mean Corpuscular Hemoglobin Concent 32.5 G/DL (32.0-36.0) Red Cell Distribution Width 14.6 % (11.6-14.8) Platelet Count 277 K/UL (150-450) Mean Platelet Volume 5.1 FL (6.5-10.1) L Neutrophils (%) (Auto) 79.7 % (45.0-75.0) H Lymphocytes (%) (Auto) 15.5 % (20.0-45.0) L Monocytes (%) (Auto) 3.6 % (1.0-10.0) Eosinophils (%) (Auto) 0.2 % (0.0-3.0) Basophils (%) (Auto) 0.9 % (0.0-2.0) Total Creatine Kinase 92 U/L (26-308) creatinine - 0.8 Current Medications Medications (Trade) Dose Ordered Sig/Alix Route PRN Reason Start Time Stop Time Status Last Admin Dose Admin Acetaminophen (Tylenol) 650 mg Q4H PRN ORAL FEVER 09/24/18 10:45 10/24/18 10:44 09/24/18 15:09 Aripiprazole (Abilify) 2.5 mg DAILY ORAL 09/18/18 09:00 10/18/18 08:59 09/26/18 08:07 Daptomycin 500 mg/ Sodium Chloride 50 ml @ 100 mls/hr Q24H IV 09/24/18 15:00 10/01/18 14:59 09/25/18 15:06 Dextrose (Dextrose 50%) 25 ml Q30M PRN IV Hypoglycemia 09/17/18 21:15 10/17/18 21:14 Dextrose (Dextrose 50%) 50 ml Q30M PRN IV Hypoglycemia 09/17/18 21:15 10/17/18 21:14 Dextrose/Sodium Chloride 1,000 ml @ 75 mls/hr [id number] IV 09/18/18 18:30 10/18/18 18:29 09/26/18 05:56 Diphenhydramine HCl (Benadryl) 50 mg Q6H PRN IVP Itching 09/20/18 18:00 10/18/18 17:59 09/26/18 13:21 Diphenhydramine HCl (Benadryl) 50 mg Q6H PRN ORAL Itching 09/21/18 18:15 10/21/18 18:14 Famotidine (Pepcid) 20 mg BID ORAL 09/18/18 09:00 10/18/18 08:59 09/26/18 08:07 Fluoxetine HCl (PROzac) 20 mg DAILY ORAL 09/18/18 09:00 10/18/18 08:59 09/26/18 08:07 Heparin Sodium (Porcine) (Heparin 5000 units/ml) 5,000 units EVERY 12 HOURS SUBQ 09/24/18 21:00 10/24/18 20:59 09/26/18 08:08 Hydromorphone HCl (Dilaudid) 1 mg Q4H PRN IVP breakthrough severe pain 09/25/18 09:00 10/02/18 08:59 09/26/18 12:09 Magnesium Hydroxide (Mom) 30 ml HSPRN PRN ORAL Constipation 09/17/18 21:15 10/17/18 21:14 Ondansetron HCl (Zofran) 4 mg Q6H PRN IVP Nausea & Vomiting 09/19/18 07:45 10/19/18 07:44 09/25/18 09:41 Oxycodone/ Acetaminophen (Percocet 10/325) 1 tab Q4H PRN ORAL severe pain 09/25/18 09:00 10/02/18 08:59 09/26/18 10:49 Polyethylene Glycol (Miralax) 17 gm DAILY PRN ORAL Constipation 09/25/18 10:00 10/25/18 09:59 09/25/18 13:02 Prochlorperazine (Compazine) 10 mg Q6H PRN IVP Nausea & Vomiting 09/25/18 12:45 10/25/18 12:44 09/26/18 01:47 Niya Holley MD Sep 26, 2018 14:23
[2018-09-26 16:00] VITALS: BP 95/56
[2018-09-26] MEDS: Cephalexin 500mg cap ORAL SCH ×2 (17:33→23:29)
[2018-09-26 20:00] VITALS: BP 91/56
[2018-09-26] MEDS: Doxycycline Monohydrate 100mg ORAL SCH (21:04)
[2018-09-26] MEDS: Clotrimazole Vaginal Cr-3 Day 21gm VAGIN SCH (21:04)
[2018-09-26] MEDS: HYDROmorphone 1mg/ml Carpuject SUBQ PRN (23:29)
[2018-09-27] VITALS (7 sets, daily range): BP systolic 88–104; BP diastolic 50–63
[2018-09-27] MEDS: Cephalexin 500mg cap ORAL SCH ×3 (05:52→17:18)
[2018-09-27] MEDS: HYDROmorphone 1mg/ml Carpuject SUBQ PRN ×3 (05:53→18:35)
[2018-09-27 07:10] LABS: ALANINE AMINOTRANSFERASE 81 U/L (12-78); ALBUMIN 2.4 G/DL (3.4-5.0); ALBUMIN/GLOBULIN RATIO 0.6 (1.0-2.7); ALKALINE PHOSPHATASE 67 U/L (46-116); ANION GAP 4 mmol/L (5-15); ASPARTATE AMINO TRANSFERASE 23 U/L (15-37); BASOPHILS % (AUTO) 0.8 % (0.0-2.0); BILIRUBIN,TOTAL 0.2 MG/DL (0.2-1.0); BLOOD UREA NITROGEN 7 mg/dL (7-18); CALCIUM 8.7 MG/DL (8.5-10.1); CARBON DIOXIDE 31 MMOL/L (21-32); CHLORIDE 104 MMOL/L (98-107); CREATININE 0.8 MG/DL (0.55-1.30); EOSINOPHILS % (AUTO) 2.4 % (0.0-3.0); HEMATOCRIT 32.6 % (37.0-47.0); HEMOGLOBIN 10.5 G/DL (12.0-16.0); MEAN CORPUSCULAR VOLUME 87 FL (80-99); MONOCYTES % (AUTO) 6.5 % (1.0-10.0); NEUTROPHILS % (AUTO) 54.3 % (45.0-75.0); PLATELET COUNT 257 K/UL (150-450); RED BLOOD COUNT 3.74 M/UL (4.20-5.40); SODIUM 139 MMOL/L (136-145); WHITE BLOOD COUNT 8.3 K/UL (4.8-10.8)
--- NOTE | 2018-09-27 07:16 | General Progress Note ---
Assessment/Plan Assessment/Plan: 22 year old female with PMH of Crohns disease, anxiety and hidradenitis suppurativa presents with pain in R axilla region with open wound with drainage. #History of hidradenitis suppurativa with recent R axilla drainage at OSH, #Right axillary pain and drainage, concern for infection and possible recurrence of abscess. #S/P Exploration of right axillary wound, Debridement of right axillary tissue s/p 2. Excision of new focus of hidradenitis suppurativa in the right axilla. 3. Rotational fasciocutaneous flap advancement closure of right axillary wound. 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 - dipso plan : monday if medically cleared # Hypotension from medication - resolved #Anxiety -home meds restarted #History of Crohn's on Remicade -Remicade on hold for now -continue to monitor # N/V 2/2 pain meds- resolved - symptom control - zofran, compazine or scopolamine as needed Code status Full Subjective Date patient seen: Sep 27, 2018 Time patient seen: 12:00 Allergies: Coded Allergies: SILVER (Verified Allergy, Mild, 06/13/18) AZATHIOPRINE (Verified Allergy, Unknown, 05/15/18) DOCUSATE (Verified Allergy, Unknown, 05/15/18) ok for oral LATEX (Verified Allergy, Unknown, 05/15/18) VANCOMYCIN (Verified Allergy, Unknown, 05/15/18) BISACODYL (Verified Adverse Reaction, Severe, Rash, 05/15/18) Uncoded Allergies: IODINE CONTRAST (Allergy, Unknown, 05/15/18) TAPE (Allergy, Unknown, 05/15/18) All Systems: reviewed and negative except above Subjective lost iV acess off binding dyer labs improved, wbc normal on po abx Objective Last 24 Hour Vital Signs Date Time Temp Pulse Resp B/P (MAP) Pulse Ox O2 Delivery O2 Flow Rate FiO2 09/27/18 06:23 99.3 09/27/18 04:00 99.3 75 18 98/62 (74) 96 09/27/18 01:05 99.0 09/27/18 00:33 104/63 (77) 09/27/18 00:00 98.7 100 18 88/50 (63) 96 09/26/18 20:48 Room Air 09/26/18 20:00 98.4 99 20 91/56 (68) 97 09/26/18 16:00 99.0 94 20 95/56 (69) 94 09/26/18 12:00 97.8 93 18 95/53 (67) 93 09/26/18 08:15 Room Air 09/26/18 08:00 98.8 99 20 99/55 (70) 96 Intake and Output 09/26/18 09/27/18 19:00 07:00 Intake Total 300 ml 600 ml Output Total 8 ml Balance 300 ml 592 ml Intake Oral 300 ml 600 ml Output Drainage Total 8 ml # Voids 2 6 # Bowel Movements 2 Laboratory Tests 09/27/18 05:50: White Blood Count 8.3, Red Blood Count 3.74L, Hemoglobin 10.5L, Hematocrit 32.6L , Mean Corpuscular Volume 87, Mean Corpuscular Hemoglobin 27.9, Mean Corpuscular Hemoglobin Concent 32.1, Red Cell Distribution Width 13.0, Platelet Count 257, Mean Platelet Volume 5.3L, Neutrophils (%) (Auto) 54.3, Lymphocytes ( %) (Auto) 36.0, Monocytes (%) (Auto) 6.5, Eosinophils (%) (Auto) 2.4, Basophils (%) (Auto) 0.8, Sodium Level 139, Potassium Level 4.0, Chloride Level 104, Carbon Dioxide Level 31, Anion Gap 4L, Blood Urea Nitrogen 7, Creatinine 0.8, Estimat Glomerular Filtration Rate > 60, Glucose Level 100, Calcium Level 8.7, Total Bilirubin 0.2, Aspartate Amino Transf (AST/SGOT) 23, Alanine Aminotransferase (ALT/SGPT) 81H, Alkaline Phosphatase 67, Total Protein 6.7, Albumin 2.4L, Globulin 4.3, Albumin/Globulin Ratio 0.6L Height (Feet): 5 Height (Inches): 5.00 Weight (Pounds): 189 General Appearance: WD/WN, no apparent distress, alert EENT: PERRL/EOMI, normal ENT inspection Neck: non-tender, normal alignment, supple Cardiovascular: normal peripheral pulses, normal rate, regular rhythm Respiratory/Chest: chest wall non-tender, lungs clear, normal breath sounds, other - right axillary wound dressed Abdomen: normal bowel sounds, non tender, soft, no organomegaly Extremities: non-tender Edema: no edema noted Arm (L), no edema noted Arm (R), no edema noted Leg (L), no edema noted Leg (R), no edema noted Pedal (L), no edema noted Pedal (R), no edema noted 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
[2018-09-27] MEDS: Doxycycline Monohydrate 100mg ORAL SCH ×2 (08:08→21:08)
[2018-09-27] MEDS: Heparin 5000 units/ml inj SUBQ SCH ×2 (08:17→21:09)
--- NOTE | 2018-09-27 09:12 | General Progress Note ---
Assessment/Plan Assessment/Plan: (1) Right Axillary pain (2) Right axillary abscess with hidradenitis suppurativa (3) S/p Exploration of right axillary wound and flap placement Patient will be continued on Dilaudid and Percocet D/w Dr. Long and he concurred. Subjective Date patient seen: Sep 27, 2018 Time patient seen: 08:15 - am Allergies: Coded Allergies: SILVER (Verified Allergy, Mild, 06/13/18) AZATHIOPRINE (Verified Allergy, Unknown, 05/15/18) DOCUSATE (Verified Allergy, Unknown, 05/15/18) ok for oral LATEX (Verified Allergy, Unknown, 05/15/18) VANCOMYCIN (Verified Allergy, Unknown, 05/15/18) BISACODYL (Verified Adverse Reaction, Severe, Rash, 05/15/18) Uncoded Allergies: IODINE CONTRAST (Allergy, Unknown, 05/15/18) TAPE (Allergy, Unknown, 05/15/18) Subjective Constitutional: Reports: no symptoms HEENT: Reports: no symptoms Cardiovascular: Reports: no symptoms Respiratory: Reports: no symptoms Gastrointestinal/Abdominal: Reports: no symptoms Genitourinary: Reports: no symptoms Neurologic/Psychiatric: Reports: no symptoms Endocrine: Reports: no symptoms Hematologic/Lymphatic: Reports: no symptoms Subjective Patient is in bed. Continues to c/o pain, Dilaudid IV was changed to subQ Q6H PRN as per surgeon. She has used 2 doses of Dilaudid and 5 doses of Percocet in the last 24hrs. No new complaints at this time. Objective Last 24 Hour Vital Signs Date Time Temp Pulse Resp B/P (MAP) Pulse Ox O2 Delivery O2 Flow Rate FiO2 09/27/18 08:00 98.3 95 20 90/53 (65) 100 09/27/18 06:23 99.3 09/27/18 04:00 99.3 75 18 98/62 (74) 96 09/27/18 01:05 99.0 09/27/18 00:33 104/63 (77) 09/27/18 00:00 98.7 100 18 88/50 (63) 96 09/26/18 20:48 Room Air 09/26/18 20:00 98.4 99 20 91/56 (68) 97 09/26/18 16:00 99.0 94 20 95/56 (69) 94 09/26/18 12:00 97.8 93 18 95/53 (67) 93 Intake and Output 09/26/18 09/27/18 19:00 07:00 Intake Total 300 ml 600 ml Output Total 8 ml Balance 300 ml 592 ml Intake Oral 300 ml 600 ml Output Drainage Total 8 ml # Voids 2 6 # Bowel Movements 2 Laboratory Tests 09/27/18 05:50: White Blood Count 8.3, Red Blood Count 3.74L, Hemoglobin 10.5L, Hematocrit 32.6L , Mean Corpuscular Volume 87, Mean Corpuscular Hemoglobin 27.9, Mean Corpuscular Hemoglobin Concent 32.1, Red Cell Distribution Width 13.0, Platelet Count 257, Mean Platelet Volume 5.3L, Neutrophils (%) (Auto) 54.3, Lymphocytes ( %) (Auto) 36.0, Monocytes (%) (Auto) 6.5, Eosinophils (%) (Auto) 2.4, Basophils (%) (Auto) 0.8, Sodium Level 139, Potassium Level 4.0, Chloride Level 104, Carbon Dioxide Level 31, Anion Gap 4L, Blood Urea Nitrogen 7, Creatinine 0.8, Estimat Glomerular Filtration Rate > 60, Glucose Level 100, Calcium Level 8.7, Total Bilirubin 0.2, Aspartate Amino Transf (AST/SGOT) 23, Alanine Aminotransferase (ALT/SGPT) 81H, Alkaline Phosphatase 67, Total Protein 6.7, Albumin 2.4L, Globulin 4.3, Albumin/Globulin Ratio 0.6L Height (Feet): 5 Height (Inches): 5.00 Weight (Pounds): 189 Objective General Appearance: no apparent distress, alert EENT: PERRL/EOMI, normal ENT inspection Neck: non-tender, normal alignment Cardiovascular: normal rate, regular rhythm Respiratory/Chest: lungs clear, normal breath sounds Abdomen: non tender, soft Extremities: other - right axilla bandages noted Edema: no edema noted Arm (L), no edema noted Arm (R), no edema noted Leg (L), no edema noted Leg (R), no edema noted Pedal (L), no edema noted Pedal (R), no edema noted Generalized Neurologic: alert, oriented x 3 Skin: normal pigmentation Hao Aldana Sep 27, 2018 09:12
--- NOTE | 2018-09-27 11:54 | General Progress Note ---
Progress Note Progress Note Pt seen and examined. POD# 3 doing well. Dressings removed and flap is viable. Dressing removed. Plan on dc home in next 48 hours once pain management under control. Sagar Campbell MD, MD Sep 27, 2018 11:54
[2018-09-27] MEDS: Nystatin Powder 100,000 units/gm 15gm TOPIC PRN (12:28)
[2018-09-27] MEDS: Clotrimazole Vaginal Cr-3 Day 21gm VAGIN SCH (21:08)
[2018-09-28] VITALS (7 sets, daily range): BP systolic 90–117; BP diastolic 52–71
[2018-09-28] MEDS: Cephalexin 500mg cap ORAL SCH ×5 (00:07→23:48)
[2018-09-28] MEDS: HYDROmorphone 1mg/ml Carpuject SUBQ PRN ×4 (00:41→23:48)
[2018-09-28] MEDS: Doxycycline Monohydrate 100mg ORAL SCH ×2 (08:28→21:04)
[2018-09-28] MEDS: Heparin 5000 units/ml inj SUBQ SCH ×2 (08:32→21:09)
--- NOTE | 2018-09-28 09:34 | General Progress Note ---
Assessment/Plan Assessment/Plan: (1) Right Axillary pain (2) Right axillary abscess with hidradenitis suppurativa (3) S/p Exploration of right axillary wound and flap placement Patient will be continued on Dilaudid and Percocet An Rx in anticipation was written for Percocet 5/325mg 25 tabs and Narcan nasal spray. D/w Dr. Long and he concurred. Subjective Date patient seen: Sep 28, 2018 Time patient seen: 08:00 - am Allergies: Coded Allergies: SILVER (Verified Allergy, Mild, 06/13/18) AZATHIOPRINE (Verified Allergy, Unknown, 05/15/18) DOCUSATE (Verified Allergy, Unknown, 05/15/18) ok for oral LATEX (Verified Allergy, Unknown, 05/15/18) VANCOMYCIN (Verified Allergy, Unknown, 05/15/18) BISACODYL (Verified Adverse Reaction, Severe, Rash, 05/15/18) Uncoded Allergies: IODINE CONTRAST (Allergy, Unknown, 05/15/18) TAPE (Allergy, Unknown, 05/15/18) Subjective Constitutional: Reports: no symptoms HEENT: Reports: no symptoms Cardiovascular: Reports: no symptoms Respiratory: Reports: no symptoms Gastrointestinal/Abdominal: Reports: no symptoms Genitourinary: Reports: no symptoms Neurologic/Psychiatric: Reports: no symptoms Endocrine: Reports: no symptoms Hematologic/Lymphatic: Reports: no symptoms Subjective Patient is in bed. She is in bed and c/o moderate pain and taking 6 Percocet and 2 Dilaudid in the last 24hrs. She has no new complaints at this time. Objective Last 24 Hour Vital Signs Date Time Temp Pulse Resp B/P (MAP) Pulse Ox O2 Delivery O2 Flow Rate FiO2 09/28/18 08:24 100/52 (68) 09/28/18 08:00 98.2 74 20 93/52 (66) 94 09/28/18 04:00 97.9 77 16 90/56 (67) 95 09/28/18 00:00 97.8 83 18 117/60 (79) 100 09/27/18 21:00 Room Air 09/27/18 20:00 99.2 85 18 95/57 (70) 95 09/27/18 16:00 97.8 98 21 88/59 (69) 100 09/27/18 12:00 98.3 95 19 92/52 (65) 96 Intake and Output 09/27/18 09/28/18 19:00 07:00 Intake Total 600 ml Balance 600 ml Intake Oral 600 ml # Voids 3 3 # Bowel Movements 2 Height (Feet): 5 Height (Inches): 5.00 Weight (Pounds): 189 Objective General Appearance: no apparent distress, alert EENT: PERRL/EOMI, normal ENT inspection Neck: non-tender, normal alignment Cardiovascular: normal rate, regular rhythm Respiratory/Chest: lungs clear, normal breath sounds Abdomen: non tender, soft Extremities: other - right axilla bandages noted Edema: no edema noted Arm (L), no edema noted Arm (R), no edema noted Leg (L), no edema noted Leg (R), no edema noted Pedal (L), no edema noted Pedal (R), no edema noted Generalized Neurologic: alert, oriented x 3 Skin: normal pigmentation Hao Aldana Sep 28, 2018 09:34
[2018-09-28] MEDS ORDERED: KEFLEX500 M1 ORAL ×3 (12:25→13:13)
[2018-09-28] MEDS ORDERED: DOXYCYCLINE HY100 M2 ORAL (12:25)
[2018-09-28] MEDS ORDERED: COLACE100 MG ORAL (12:31)
--- NOTE | 2018-09-28 12:50 | General Progress Note ---
Progress Note Progress Note Pt seen and examined. POD# 4 from right axillary wound closure. Doing well. Flap is viable. Plan for dc home in AM. Sagar Campbell MD, MD Sep 28, 2018 12:50
[2018-09-28] MEDS: Nystatin Powder 100,000 units/gm 15gm TOPIC PRN (13:17)
--- NOTE | 2018-09-28 15:00 | General Progress Note ---
Assessment/Plan Assessment/Plan: 22 year old female with PMH of Crohns disease, anxiety and hidradenitis suppurativa presents with pain in R axilla region with open wound with drainage. #History of hidradenitis suppurativa with recent R axilla drainage at OSH, #Right axillary pain and drainage, concern for infection and possible recurrence of abscess. #S/P Exploration of right axillary wound, Debridement of right axillary tissue s/p 2. Excision of new focus of hidradenitis suppurativa in the right axilla. 3. Rotational fasciocutaneous flap advancement closure of right axillary wound. (09/24) -ABX per by ID for discharge: doxy 100 mg PO BID X 7 Days, Keflex 500 mg PO QID X 7 Days, called into [facility] pharmacy - dispo planning for monday -Plastic Surgery consult appreciated -Pain management consult appreciated-> discussed at length pain management plan for discharge with Pain service as well as with patient. Patient was concerned that she would have withdrawal symptoms is she goes home without dilaudid, she was informed that her dose was not high enough to cause withdrawal, she agreed to have dilaudid weaned today in prep for dc home tomorrow -monitor CBC and BMP -encourage incentive spirometer -encouraged ambulation - Activity as tolerated without weight bearing in the arms. - dipso plan : monday if medically cleared # Hypotension from medication- stable - resolved #Anxiety -home meds restarted #History of Crohn's on Remicade -Remicade on hold for now -continue to monitor # N/V 2/2 pain meds- resolved - symptom control - zofran, compazine or scopolamine as needed Code status Full An additional 38 minutes was spent in extra care time regarding conversations documented above. Subjective Date patient seen: Sep 28, 2018 Time patient seen: 12:00 ROS Limited/Unobtainable: No Allergies: Coded Allergies: SILVER (Verified Allergy, Mild, 06/13/18) AZATHIOPRINE (Verified Allergy, Unknown, 05/15/18) DOCUSATE (Verified Allergy, Unknown, 05/15/18) ok for oral LATEX (Verified Allergy, Unknown, 05/15/18) VANCOMYCIN (Verified Allergy, Unknown, 05/15/18) BISACODYL (Verified Adverse Reaction, Severe, Rash, 05/15/18) Uncoded Allergies: IODINE CONTRAST (Allergy, Unknown, 05/15/18) TAPE (Allergy, Unknown, 05/15/18) Subjective discussed dispo planning for tomorrow discussed pain regimen plan. agreed to wean off dilaudid in house and dc with percoset only Objective Last 24 Hour Vital Signs Date Time Temp Pulse Resp B/P (MAP) Pulse Ox O2 Delivery O2 Flow Rate FiO2 09/28/18 14:20 98.6 09/28/18 12:16 98.6 09/28/18 11:42 98.6 101 20 105/71 (82) 98 09/28/18 09:00 Room Air 09/28/18 08:24 100/52 (68) 09/28/18 08:00 98.2 74 20 93/52 (66) 94 09/28/18 04:00 97.9 77 16 90/56 (67) 95 09/28/18 00:00 97.8 83 18 117/60 (79) 100 09/27/18 21:00 Room Air 09/27/18 20:00 99.2 85 18 95/57 (70) 95 09/27/18 16:00 97.8 98 21 88/59 (69) 100 Intake and Output 09/27/18 09/28/18 19:00 07:00 Intake Total 600 ml Balance 600 ml Intake Oral 600 ml # Voids 3 3 # Bowel Movements 2 Height (Feet): 5 Height (Inches): 5.00 Weight (Pounds): 189 Objective GEN: WWN, NAD, Alert CV: RRR, no M, R, G, no jvd RESP: CTAB, no w/r/c CHEST: right axilla wound dressed,c,d,i ABD: normal bowel sounds, soft, non tender EXT: normal muscle tone, no tenderness NEURO: grossly normal, no tremors, a x o x 3 Antonina Burleson DO Sep 28, 2018 15:00
--- NOTE | 2018-09-28 15:19 | Infectious Diseases Prog Note ---
Assessment/Plan Assessment/Plan ASSESSMENT AND PLAN: 1. right axilla abscess/cellulitis/infected hidradenitis suppurative/infected wound, pain, leukocytosis - keflex and doxycycline x 1 week more - wound culture with community development aide - likely contaminant - s/p debridement - s/p wound closure - monitor labs, leukocytosis has resolved - communicated with Dr. Burleson 2. Anxiety. 3. Depression. 4. Hidradenitis suppurativa with history of surgery and antibiotics. 5. Crohn's disease. 6. Anemia. 7. Allergies to azathioprine, bisacodyl, docusate, iodine contrast, latex, Silver tape, and vancomycin. 8. MAR was noted. 9. Case was discussed with RN. 10. Family history is noncontributory. 11. Social history is negative. 12. Continue treatment per primary consultants. Subjective Constitutional: Reports: fatigue; Denies: fever HEENT: Denies: congestion Respiratory: Denies: shortness of breath Cardiovascular: Denies: chest pain Gastrointestinal/Abdominal: Denies: nausea, vomiting, diarrhea Genitourinary: Reports: other - no santana Psychiatric: Denies: depression Skin: Denies: rash Hematologic: Denies: bleeding Musculoskeletal: Denies: pain Allergies: Coded Allergies: SILVER (Verified Allergy, Mild, 06/13/18) AZATHIOPRINE (Verified Allergy, Unknown, 05/15/18) DOCUSATE (Verified Allergy, Unknown, 05/15/18) ok for oral LATEX (Verified Allergy, Unknown, 05/15/18) VANCOMYCIN (Verified Allergy, Unknown, 05/15/18) BISACODYL (Verified Adverse Reaction, Severe, Rash, 05/15/18) Uncoded Allergies: IODINE CONTRAST (Allergy, Unknown, 05/15/18) TAPE (Allergy, Unknown, 05/15/18) Objective Vital Signs Last 24 Hour Vital Signs Date Time Temp Pulse Resp B/P (MAP) Pulse Ox O2 Delivery O2 Flow Rate FiO2 09/28/18 14:20 98.6 09/28/18 12:16 98.6 09/28/18 11:42 98.6 101 20 105/71 (82) 98 09/28/18 09:00 Room Air 09/28/18 08:24 100/52 (68) 09/28/18 08:00 98.2 74 20 93/52 (66) 94 09/28/18 04:00 97.9 77 16 90/56 (67) 95 09/28/18 00:00 97.8 83 18 117/60 (79) 100 09/27/18 21:00 Room Air 09/27/18 20:00 99.2 85 18 95/57 (70) 95 09/27/18 16:00 97.8 98 21 88/59 (69) 100 Height (Feet): 5 Height (Inches): 5.00 Weight (Pounds): 189 General Appearance: no acute distress HEENT: normocephalic, atraumatic, anicteric, mucous membranes moist Respiratory/Chest: lungs clear, normal breath sounds, no respiratory distress, no accessory muscle use Cardiovascular: normal rate, regular rhythm, no gallop/murmur, no JVD Abdomen: normal bowel sounds, soft, non tender, no organomegaly, non distended Genitourinary: other - no santana Extremities: no cyanosis Skin: no rash Neurologic/Psychiatric: alert, responsive, normal mood/affect Lymphatic: no neck adenopathy Musculoskeletal: no effusion Objective no imaging Microbiology Date/Time Source Procedure Growth Status 09/19/18 08:02 Axilla Right Gram Stain - Final Complete 09/19/18 08:02 Aerobic Culture - Final Staphylococcus Sp Coag Neg Complete 09/19/18 08:02 Axilla Right Anaerobic Culture - Final NO ANAEROBES ISOLATED Complete Labs Test 09/27/18 05:50 White Blood Count 8.3 K/UL (4.8-10.8) Red Blood Count 3.74 M/UL (4.20-5.40) Hemoglobin 10.5 G/DL (12.0-16.0) Hematocrit 32.6 % (37.0-47.0) Mean Corpuscular Volume 87 FL (80-99) Mean Corpuscular Hemoglobin 27.9 PG (27.0-31.0) Mean Corpuscular Hemoglobin Concent 32.1 G/DL (32.0-36.0) Red Cell Distribution Width 13.0 % (11.6-14.8) Platelet Count 257 K/UL (150-450) Mean Platelet Volume 5.3 FL (6.5-10.1) Neutrophils (%) (Auto) 54.3 % (45.0-75.0) Lymphocytes (%) (Auto) 36.0 % (20.0-45.0) Monocytes (%) (Auto) 6.5 % (1.0-10.0) Eosinophils (%) (Auto) 2.4 % (0.0-3.0) Basophils (%) (Auto) 0.8 % (0.0-2.0) Sodium Level 139 MMOL/L (136-145) Potassium Level 4.0 MMOL/L (3.5-5.1) Chloride Level 104 MMOL/L (98-107) Carbon Dioxide Level 31 MMOL/L (21-32) Anion Gap 4 mmol/L (5-15) Blood Urea Nitrogen 7 mg/dL (7-18) Creatinine 0.8 MG/DL (0.55-1.30) Estimat Glomerular Filtration Rate > 60 mL/min (>60) Glucose Level 100 MG/DL (74-106) Calcium Level 8.7 MG/DL (8.5-10.1) Total Bilirubin 0.2 MG/DL (0.2-1.0) Aspartate Amino Transf (AST/SGOT) 23 U/L (15-37) Alanine Aminotransferase (ALT/SGPT) 81 U/L (12-78) Alkaline Phosphatase 67 U/L (46-116) Total Protein 6.7 G/DL (6.4-8.2) Albumin 2.4 G/DL (3.4-5.0) Globulin 4.3 g/dL Albumin/Globulin Ratio 0.6 (1.0-2.7) Current Medications Medications (Trade) Dose Ordered Sig/Alix Route PRN Reason Start Time Stop Time Status Last Admin Dose Admin Acetaminophen (Tylenol) 650 mg Q4H PRN ORAL FEVER 09/24/18 10:45 10/24/18 10:44 09/24/18 15:09 Aripiprazole (Abilify) 2.5 mg DAILY ORAL 09/18/18 09:00 10/18/18 08:59 09/28/18 08:27 Cephalexin (Keflex) 500 mg Q6HR ORAL 09/26/18 18:00 10/03/18 17:59 09/28/18 11:45 Clotrimazole (Gyne-Lotrimin) 1 applic BEDTIME VAGIN 09/26/18 21:00 09/28/18 21:01 09/27/18 21:08 Dextrose (Dextrose 50%) 25 ml Q30M PRN IV Hypoglycemia 09/17/18 21:15 10/17/18 21:14 Dextrose (Dextrose 50%) 50 ml Q30M PRN IV Hypoglycemia 09/17/18 21:15 10/17/18 21:14 Diphenhydramine HCl (Benadryl) 50 mg Q6H PRN IVP Itching 09/20/18 18:00 10/18/18 17:59 09/26/18 13:21 Diphenhydramine HCl (Benadryl) 50 mg Q6H PRN ORAL Itching 09/21/18 18:15 10/21/18 18:14 09/28/18 11:45 Doxycycline Monohydrate (Doxycycline Monohydrate) 100 mg EVERY 12 HOURS ORAL 09/26/18 21:00 10/03/18 20:59 09/28/18 08:28 Famotidine (Pepcid) 20 mg BID ORAL 09/18/18 09:00 10/18/18 08:59 09/28/18 08:27 Fluoxetine HCl (PROzac) 20 mg DAILY ORAL 09/18/18 09:00 10/18/18 08:59 09/28/18 08:28 Heparin Sodium (Porcine) (Heparin 5000 units/ml) 5,000 units EVERY 12 HOURS SUBQ 09/24/18 21:00 10/24/18 20:59 09/28/18 08:32 Hydromorphone HCl (Dilaudid) 1 mg Q6H PRN SUBQ Severe Breakthru Pain (>7) 09/26/18 18:12 10/03/18 18:11 09/28/18 11:46 Magnesium Hydroxide (Mom) 30 ml HSPRN PRN ORAL Constipation 09/17/18 21:15 10/17/18 21:14 Nystatin (Nystop Powder) 1 applic NEEDED PRN TOPIC dressing change 09/27/18 12:00 10/27/18 11:59 09/28/18 13:17 Ondansetron HCl (Zofran ODT) 4 mg Q6H PRN ORAL Nausea & Vomiting 09/27/18 21:45 10/27/18 21:44 09/27/18 22:05 Ondansetron HCl (Zofran) 4 mg Q6H PRN IVP Nausea & Vomiting 09/19/18 07:45 10/19/18 07:44 09/25/18 09:41 Oxycodone/ Acetaminophen (Percocet 10/325) 1 tab Q4H PRN ORAL severe pain 09/25/18 09:00 10/02/18 08:59 09/28/18 13:16 Polyethylene Glycol (Miralax) 17 gm DAILY PRN ORAL Constipation 09/25/18 10:00 10/25/18 09:59 09/25/18 13:02 Prochlorperazine (Compazine) 10 mg Q6H PRN IVP Nausea & Vomiting 09/25/18 12:45 10/25/18 12:44 09/26/18 01:47 Niya Holley MD Sep 28, 2018 15:19
[2018-09-28] MEDS: Clotrimazole Vaginal Cr-3 Day 21gm VAGIN SCH (21:00)
[2018-09-29] VITALS: BP 95/58
[2018-09-29 04:00] VITALS: BP 88/68
[2018-09-29 06:08] LABS: BASOPHILS % (AUTO) 0.9 % (0.0-2.0); EOSINOPHILS % (AUTO) 2.6 % (0.0-3.0); HEMATOCRIT 35.4 % (37.0-47.0); HEMOGLOBIN 11.3 G/DL (12.0-16.0); LYMPHOCYTES % (AUTO) 29.8 % (20.0-45.0); MEAN CORPUSCULAR VOLUME 87 FL (80-99); NEUTROPHILS % (AUTO) 58.8 % (45.0-75.0); PLATELET COUNT 296 K/UL (150-450); RED BLOOD COUNT 4.09 M/UL (4.20-5.40); RED CELL DISTRIBUTION WIDTH 12.9 % (11.6-14.8); WHITE BLOOD COUNT 9.3 K/UL (4.8-10.8)
[2018-09-29] MEDS: Cephalexin 500mg cap ORAL SCH ×2 (06:16→12:11)
[2018-09-29] MEDS: HYDROmorphone 1mg/ml Carpuject SUBQ PRN ×2 (06:20→12:39)
[2018-09-29 06:40] LABS: ANION GAP 6 mmol/L (5-15); BLOOD UREA NITROGEN 10 mg/dL (7-18); CALCIUM 8.6 MG/DL (8.5-10.1); CARBON DIOXIDE 26 MMOL/L (21-32); CHLORIDE 105 MMOL/L (98-107); CREATININE 0.9 MG/DL (0.55-1.30); SODIUM 137 MMOL/L (136-145)
[2018-09-29 08:00] VITALS: BP 98/59
[2018-09-29] MEDS: Doxycycline Monohydrate 100mg ORAL SCH (09:20)
[2018-09-29] MEDS: Heparin 5000 units/ml inj SUBQ SCH (09:23)
[2018-09-29 12:00] VITALS: BP 114/70
[2018-09-29 16:00] VITALS: BP 96/58
--- NOTE | 2018-09-29 23:10 | Discharge Summary ---
Discharge Summary Hospital Course Date of Admission Sep 17, 2018 at 20:51 Date of Discharge Sep 29, 2018 at 18:56 Admitting Diagnosis Abscess, pain control Reason for Hospitalization: iv abx and surgery HPI Kenzie Caruso is a 23 year old female who was admitted on Sep 17, 2018 at 20:51 for Abscess, Pain Control Consultations Plastic Surgery ID Pain Procedures 09/18 exploration and excision of right axillary tissue 09/24 fasciocutaneous closure Hospital Course This is a 23-year-old female with a long-standing history of Crohn disease and hidradenitis suppurativa, who is approximately four and a half months out from left axillary hidradenitis excision and reconstruction, who had presented to an outside emergency room with extreme pain under her right axilla. At the outside facility, she underwent a small drainage procedure with minimal to no improvement of symptoms. She re-presented to the emergency room here at [facility] with continued pain, tenderness and redness around the region of the attempted drainage procedure. Upon my exam, she was quite tender all around the axilla with some cellulitis as well. Patient was admitted on IV abx and underwent a right axillary exploration and debridement of axillary tissue on 09/18. Patient was continued on abx and followed by ID and pain services. Patient was taken back for wound closure on 09/24. Patient's post-op course involved systems developer pump , eventually weaned off and continued abx. She Was discharged home in stable condition with keflex and doxy for one more week, dilaudid po by pain services, and stool softeners. Home health was not yet established, however patient was sent home with supplied for self wound care, and CM to follow up on on monday. 22 year old female with PMH of Crohns disease, anxiety and hidradenitis suppurativa presents with pain in R axilla region with open wound with drainage. #History of hidradenitis suppurativa with recent R axilla drainage at OSH, #Right axillary pain and drainage, concern for infection and possible recurrence of abscess. #S/P Exploration of right axillary wound, Debridement of right axillary tissue s/p 2. Excision of new focus of hidradenitis suppurativa in the right axilla. 3. Rotational fasciocutaneous flap advancement closure of right axillary wound. (09/24) -ABX per by ID for discharge: doxy 100 mg PO BID X 7 Days, Keflex 500 mg PO QID X 7 Days, called into [facility] pharmacy - dispo planning for monday -Plastic Surgery consult appreciated -Pain management consult appreciated-> discussed at length pain management plan for discharge with Pain service as well as with patient. Patient was concerned that she would have withdrawal symptoms is she goes home without dilaudid, she was informed that her dose was not high enough to cause withdrawal, she agreed to have dilaudid weaned today in prep for dc home tomorrow -monitor CBC and BMP -encourage incentive spirometer -encouraged ambulation - Activity as tolerated without weight bearing in the arms. - dipso plan : monday if medically cleared # Hypotension from medication- stable - resolved #Anxiety -home meds restarted #History of Crohn's on Remicade -Remicade on hold for now -continue to monitor # N/V 2/2 pain meds- resolved - symptom control - zofran, compazine or scopolamine as needed Code status Full An additional 38 minutes was spent in extra care time regarding conversations documented above. Discharge Medications New Medications: Docusate Sodium* (Colace*) 100 Mg Capsule 200 MG ORAL TWICE A DAY for 30 Days, #60 CAP 0 Refills Cephalexin (Cephalexin) 500 Mg Tablet 500 MG ORAL QID for 7 Days, #28 TAB 0 Refills Doxycycline Hyclate (Doxycycline Hyclate) 100 Mg Capsule 100 MG ORAL EVERY 12 HOURS for 7 Days, #14 CAP 0 Refills Continued Medications: Aripiprazole* (Abilify*) 2 Mg Tablet 2.5 MG ORAL DAILY, TAB Fluoxetine Hcl* (Prozac*) 20 Mg Capsule 40 MG ORAL DAILY, CAP Infliximab (Remicade) 100 Mg Vial 632.761 MG IV EVERY 8 WEEKS, VIAL (This prescription has been renewed) Omeprazole Magnesium (Prilosec Otc) 20 Mg Tablet.dr 20 MG ORAL DAILY, TAB (This prescription has been renewed) Discharge Condition Upon Discharge: stable Discharge Disposition Patient was discharged to home (staying in burns) pending Discharge Diagnoses: (1) Post op infection (2) Crohns disease (3) Opioid use Discharge Instructions Discharge Instructions Follow up with: /Plastic Surgery Diet: regular For Surgical Patients Dressing Care: other - daily dressing changes Antonina Burleson DO Sep 29, 2018 23:10
== END 2018-09-29 18:56 | disposition home health service (06) | DRG 574 ==
LOC: EMR 20:50 → 4E 20:51 → EDBEDREQ 21:26 → 3E 09-18 12:59
PROC: 0JBD0ZZ Excision of Right Upper Arm Subcutaneous Tissue and Fascia, Open Approach (ICD-10-PCS; principal; 2018-09-19 07:30)
PROC: 0JBD0ZZ Excision of Right Upper Arm Subcutaneous Tissue and Fascia, Open Approach (ICD-10-PCS; 2018-09-24)
PROC: 0JXD0ZC Transfer Right Upper Arm Subcutaneous Tissue and Fascia with Skin, Subcutaneous Tissue and Fascia, Open Approach (ICD-10-PCS; 2018-09-24)
DX: L03.111 Cellulitis of right axilla (principal); K50.90 Crohn's disease, unspecified, without complications; L73.2 Hidradenitis suppurativa; F41.9 Anxiety disorder, unspecified; F32.9 Major depressive disorder, single episode, unspecified; D64.9 Anemia, unspecified; L02.411 Cutaneous abscess of right axilla; I95.9 Hypotension, unspecified; R11.2 Nausea with vomiting, unspecified
CPT/HCPCS: 36415; 80048; 80053; 82550; 82962; 85025; 85610; 85730; 86850; 86900; 86901; 87070; 87075; 87205; 94003; 94150; 96374; 99285; J2250; J2405

== ENCOUNTER 2018-12-26 19:16 | Inpatient (IN) | payer OTHER ==
[~2018-12-26] VITALS: Ht 165.1 cm; Wt 91.2 kg
[~2018-12-26 19:16] MED LIST changes: +COLACE100 MG ORAL; +DOXYCYCLINE HY100 M2 ORAL; +KEFLEX500 M1 ORAL; +REMICADE10 MG IV
[2018-12-26 19:29] VITALS: BP 101/68
--- NOTE | 2018-12-26 19:31 | NUR ---
ED Nurse Note: PT AMBULATED TO ED C/O RIGHT AXILLARY PAIN DUE TO NON HEALING POST SURGICAL WOUND X4 MONTHS AGO. PT STATES PAIN IS 9/10. URINE SAMPLE COLLECTED PER [facility] ORDER. WILL DRAW BLOOD
[2018-12-26] MEDS ORDERED: Morphine Sulfate 4mg/ml Inj (IV USE ONLY) IVP ONE (19:45)
[2018-12-26] MEDS ORDERED: Piperacillin/Tazobactam 3.375 GM in NS 110 ML IVPB ONE (19:45)
--- NOTE | 2018-12-26 19:48 | Emergency Room Report ---
History of Present Illness General Chief Complaint: Skin Rash/Abscess Source: Patient (Tiffanie Araya) Present Illness HPI 23 YO Female presents to the ED C/O 11/29 in severity pain, tenderness, swelling and erythema in the right axilla x 1 week. pt. reports having surgery for hidradenitis 4 months ago and reported wound complications after the sutures dehisced and her wound has not closed since. She reports purulent drainage despite proper wound care and abx. Pt. reports prior to surgery she was having frequent infections x 1 year. She denies fevers or chills. She states that she is right hand dominant. Pt. denies trauma or fall. She reports hypersensitivity in the right axilla. She reports movement of the right arm, palpation of the right axilla or rasing her arm exacerbates her pain. No other aggravating or relieving factors. She is not UTD with vaccinations. (Tiffanie Araya) Allergies: Coded Allergies: SILVER (Verified Allergy, Mild, 06/13/18) AZATHIOPRINE (Verified Allergy, Unknown, 05/15/18) DOCUSATE (Verified Allergy, Unknown, 05/15/18) ok for oral LATEX (Verified Allergy, Unknown, 05/15/18) VANCOMYCIN (Verified Allergy, Unknown, 05/15/18) BISACODYL (Verified Adverse Reaction, Severe, Rash, 05/15/18) Uncoded Allergies: IODINE CONTRAST (Allergy, Unknown, 05/15/18) TAPE (Allergy, Unknown, 05/15/18) Patient History Past Medical History: see triage record Past Surgical History: other - hydradenitis Last Menstrual Period: current Now: No Reviewed Nursing Documentation: PMH: Agreed; PSxH: Agreed (Tiffanie Araya) Nursing Documentation-PMH Hx Cancer: No Hx Gastrointestinal Problems: Yes Hx Neurological Problems: No (Tiffanie Araya) Review of Systems All Other Systems: negative except mentioned in HPI (Tiffanie Araya) Physical Exam Vital Signs Date Time Temp Pulse Resp B/P (MAP) Pulse Ox O2 Delivery O2 Flow Rate FiO2 12/26/18 19:20 98.6 92 16 101/68 (79) 97 Room Air Sp02 EP Interpretation: reviewed, normal General Appearance: no apparent distress, alert, GCS 15, non-toxic Head: normocephalic, atraumatic Eyes: bilateral eye normal inspection, bilateral eye PERRL ENT: hearing grossly normal, normal voice Neck: full range of motion Respiratory: lungs clear, normal breath sounds, speaking full sentences Cardiovascular #1: regular rate, rhythm, normal capillary refill Cardiovascular #2: 2+ radial (R), 2+ radial (L) Musculoskeletal: gait/station normal, normal range of motion Neurologic: alert, oriented x3, responsive, motor strength/tone normal, sensory intact, speech normal, grossly normal Psychiatric: judgement/insight normal Skin: other - erythema, swelling, purulent d/c and induration in the right axilla that is approx 4.5cm in length. surgical wound noted to be helaing. Lymphatic: no adenopathy (Tiffanie Araya) Medical Decision Making PA Attestation Dr. Mendoza is my supervising Physician whom patient management has been discussed with. (Tiffanie Araya) Diagnostic Impression: Primary Impression: Surgical site infection Additional Impressions: Wound dehiscence, surgical Qualified Codes: T81.31XA - Disruption of external operation (surgical) wound , not elsewhere classified, initial encounter Hidradenitis suppurativa of right axilla ER Course 23 YO Female presents to the ED C/O 11/29 in severity pain, tenderness, swelling and erythema in the right axilla x 1 week. pt. reports having surgery for hidradenitis 4 months ago and reported wound complications after the sutures dehisced and her wound has not closed since. She reports purulent drainage despite proper wound care and abx. Pt. reports prior to surgery she was having frequent infections x 1 year. She denies fevers or chills. She states that she is right hand dominant. Pt. denies trauma or fall. She reports hypersensitivity in the right axilla. She reports movement of the right arm, palpation of the right axilla or rasing her arm exacerbates her pain. No other aggravating or relieving factors. She is not UTD with vaccinations. Ddx considered but are not limited to cellulitis, hydradenitis Suppurativa, wound dehiscence, abscess, sepsis just to name a few. Vital signs: are WNL, pt. is afebrile H&PE are most consistent with right axillary urgical site dehiscence and complication due to infection that is unresponsive to outpatient treatment, and requiring admission for surgical or IV abx management. ORDERS: -Gen. preop labwork: CBC, CMP, PT/PTT,Lactic acid: WNL Type and Screen: Pending -Blood Cultures: Pending ED INTERVENTIONS: -3.375gm Zosyn IV -4mg Morphine IV DISPOSITION: at this time pt. will be admitted to Dr. Burleson on behalf of Dr. Whelan for Surgical site complication-infection. Dr. Burleson agreed to admit the pt. and to continue pt. care management. Labs Test 12/26/18 19:33 12/26/18 19:50 12/26/18 20:25 Urine HCG, Qualitative Negative (NEGATIVE) White Blood Count 9.2 K/UL (4.8-10.8) Red Blood Count 4.94 M/UL (4.20-5.40) Hemoglobin 13.4 G/DL (12.0-16.0) Hematocrit 40.1 % (37.0-47.0) Mean Corpuscular Volume 81 FL (80-99) Mean Corpuscular Hemoglobin 27.0 PG (27.0-31.0) Mean Corpuscular Hemoglobin Concent 33.3 G/DL (32.0-36.0) Red Cell Distribution Width 11.6 % (11.6-14.8) Platelet Count 282 K/UL (150-450) Mean Platelet Volume 5.5 FL (6.5-10.1) Neutrophils (%) (Auto) 48.7 % (45.0-75.0) Lymphocytes (%) (Auto) 43.2 % (20.0-45.0) Monocytes (%) (Auto) 5.8 % (1.0-10.0) Eosinophils (%) (Auto) 1.1 % (0.0-3.0) Basophils (%) (Auto) 1.2 % (0.0-2.0) Sodium Level 139 MMOL/L (136-145) Potassium Level 3.6 MMOL/L (3.5-5.1) Chloride Level 104 MMOL/L (98-107) Carbon Dioxide Level 24 MMOL/L (21-32) Anion Gap 11 mmol/L (5-15) Blood Urea Nitrogen 11 mg/dL (7-18) Creatinine 0.9 MG/DL (0.55-1.30) Estimat Glomerular Filtration Rate > 60 mL/min (>60) Glucose Level 91 MG/DL (74-106) Lactic Acid Level 1.10 mmol/L (0.4-2.0) Calcium Level 9.0 MG/DL (8.5-10.1) Total Bilirubin 0.4 MG/DL (0.2-1.0) Aspartate Amino Transf (AST/SGOT) 15 U/L (15-37) Alanine Aminotransferase (ALT/SGPT) 18 U/L (12-78) Alkaline Phosphatase 78 U/L (46-116) Total Protein 8.1 G/DL (6.4-8.2) Albumin 3.5 G/DL (3.4-5.0) Globulin 4.6 g/dL Albumin/Globulin Ratio 0.8 (1.0-2.7) (Tiffanie Araya) ER Course Patient is a 23-year-old female seen by physician academic assistant with wound infection to the right axillary area. Patient a previous surgical repair of hydradenitis lesion to that area. Patient will be admitted to Dr. Hernandez for wound infection. (Marcus Mendoza MD) Last Vital Signs Date Time Temp Pulse Resp B/P (MAP) Pulse Ox O2 Delivery O2 Flow Rate FiO2 12/26/18 19:29 98.6 92 16 101/68 97 Room Air (Tiffanie Araya) Disposition: ADMITTED INPATIENT Condition: Serious Tiffanie Araya Dec 26, 2018 19:48 Marcus Mendoza MD Dec 26, 2018 19:53
[2018-12-26] MEDS ORDERED: Methocarbamol 500mg tab ORAL PRN (20:15)
[2018-12-26] MEDS ORDERED: Albuterol/Ipratropium 3ml neb HHN PRN (20:15)
[2018-12-26] MEDS ORDERED: Milk of Magnesia 30ml Ud ORAL PRN (20:15)
[2018-12-26] MEDS ORDERED: LORazepam 1mg tab ORAL PRN (20:15)
[2018-12-26] MEDS ORDERED: Metoclopramide 10mg/2ml Inj IVP PRN (20:15)
[2018-12-26] MEDS ORDERED: HYDROmorphone 1mg/ml Carpuject IVP PRN (20:15)
[2018-12-26] MEDS ORDERED: traMADol 50mg tab ORAL PRN (20:15)
[2018-12-26] MEDS ORDERED: Miralax 17gm pkt ORAL PRN (20:15)
[2018-12-26] MEDS ORDERED: Nitroglycerin Subl 0.4mg tab SL PRN (20:15)
[2018-12-26] MEDS ORDERED: Mylanta II UD 30ml ORAL PRN (20:15)
[2018-12-26] MEDS ORDERED: Acetaminophen 650 MG SUPP RECTAL PRN ×2 (20:15)
[2018-12-26] MEDS ORDERED: Zolpidem 5mg tab ORAL PRN (20:15)
[2018-12-26 20:20] LABS: ANION GAP 11 mmol/L (5-15); BLOOD UREA NITROGEN 11 mg/dL (7-18); CARBON DIOXIDE 24 MMOL/L (21-32); CHLORIDE 104 MMOL/L (98-107); CREATININE 0.9 MG/DL (0.55-1.30); POTASSIUM 3.6 MMOL/L (3.5-5.1); SODIUM 139 MMOL/L (136-145)
[2018-12-26 20:25] LABS: ALANINE AMINOTRANSFERASE 18 U/L (12-78); ALBUMIN 3.5 G/DL (3.4-5.0); ALBUMIN/GLOBULIN RATIO 0.8 (1.0-2.7); ALKALINE PHOSPHATASE 78 U/L (46-116); ASPARTATE AMINO TRANSFERASE 15 U/L (15-37); BILIRUBIN,TOTAL 0.4 MG/DL (0.2-1.0)
--- NOTE | 2018-12-26 20:27 | NUR ---
ED Nurse Note: telephone report give to aakash santoyo for continuity of care
[2018-12-26 20:29] LABS: BASOPHILS % (AUTO) 1.2 % (0.0-2.0); EOSINOPHILS % (AUTO) 1.1 % (0.0-3.0); HEMATOCRIT 40.1 % (37.0-47.0); HEMOGLOBIN 13.4 G/DL (12.0-16.0); LYMPHOCYTES % (AUTO) 43.2 % (20.0-45.0); MEAN CORPUSCULAR VOLUME 81 FL (80-99); MONOCYTES % (AUTO) 5.8 % (1.0-10.0); NEUTROPHILS % (AUTO) 48.7 % (45.0-75.0); PLATELET COUNT 282 K/UL (150-450); RED BLOOD COUNT 4.94 M/UL (4.20-5.40); RED CELL DISTRIBUTION WIDTH 11.6 % (11.6-14.8); WHITE BLOOD COUNT 9.2 K/UL (4.8-10.8)
[2018-12-26] MEDS ORDERED: DiphenhydrAMINE 50mg/ml Inj ONE (20:29)
[2018-12-26] MEDS ORDERED: DiphenhydrAMINE 50mg/ml Inj IVP ONE (20:30)
--- NOTE | 2018-12-26 20:42 | NUR ---
TRANSFER TO FLOOR: Patient transferred to ms as ordered, per ermd . Report given to aakash santoyo. Belongings given to pt.
--- NOTE | 2018-12-26 20:45 | NUR ---
Pt admitted from ED via wheelchair. Alert and orientation x 4. No acute distress noted. Breathing is even and non labored. Done gauze dressing on right axilla. Pain on rt axilla is 7/10. Pt had pain medication at ED. No chilling and febrile sensation noted. IV site is on left inner wrist 20 gauze H/L without infiltration. Provide orientation and check belonging done. Call light within reach. Will continue to monitor. Orders are done by Dr. Burleson. Order noted and carried out.
[2018-12-26 20:50] VITALS: BP 118/60
[2018-12-26] MEDS: HYDROcodone/Acetamin 10/325 tab ORAL PRN (22:06)
[2018-12-26] MEDS: Doxycycline Hyclate 100 MG in D5W 110 ML IV SCH (22:06)
--- NOTE | 2018-12-26 22:45 | NUR ---
NURSE NOTES: Confirm with Dr. Burleson for home medication. Order noted and carried out. Will continue to monitor.
--- NOTE | 2018-12-26 23:00 | NUR ---
NURSE NOTES: IV anti-biotics are done without any allergic reactions. Will continue to monitor.
[2018-12-26] MEDS ORDERED: ABILIFY2 MG ORAL (23:55)
[2018-12-27] VITALS (13 sets, daily range): BP systolic 97–138; BP diastolic 52–87
--- NOTE | 2018-12-27 | NUR ---
NURSE NOTES: Explain for MNNPO until MD clears out for possible procedure. Pt verbalizes understanding. Pain on rt axilla is tolerable state. Will continue to monitor.
--- NOTE | 2018-12-27 05:30 | NUR ---
NURSE NOTES: Request for Benadryl d/t itching but the interval of medication has not been due so provide explanation and apply ice bags. Will continue to monitor.
[2018-12-27 06:25] LABS: BASOPHILS % (AUTO) 0.9 % (0.0-2.0); EOSINOPHILS % (AUTO) 1.9 % (0.0-3.0); HEMOGLOBIN 12.6 G/DL (12.0-16.0); LYMPHOCYTES % (AUTO) 50.2 % (20.0-45.0); MEAN CORPUSCULAR VOLUME 84 FL (80-99); MONOCYTES % (AUTO) 9.4 % (1.0-10.0); NEUTROPHILS % (AUTO) 37.6 % (45.0-75.0); PLATELET COUNT 300 K/UL (150-450); RED BLOOD COUNT 4.53 M/UL (4.20-5.40)
[2018-12-27 06:42] LABS: ALANINE AMINOTRANSFERASE 13 U/L (12-78); ALBUMIN 2.9 G/DL (3.4-5.0); ALBUMIN/GLOBULIN RATIO 0.7 (1.0-2.7); ALKALINE PHOSPHATASE 64 U/L (46-116); ANION GAP 7 mmol/L (5-15); ASPARTATE AMINO TRANSFERASE 12 U/L (15-37); BILIRUBIN,TOTAL 0.2 MG/DL (0.2-1.0); BLOOD UREA NITROGEN 11 mg/dL (7-18); CALCIUM 8.3 MG/DL (8.5-10.1); CARBON DIOXIDE 26 MMOL/L (21-32); CHLORIDE 109 MMOL/L (98-107); CREATININE 0.9 MG/DL (0.55-1.30); POTASSIUM 3.8 MMOL/L (3.5-5.1); SODIUM 142 MMOL/L (136-145)
--- NOTE | 2018-12-27 07:11 | NUR ---
NURSE NOTES: HANDOFF RECEIVED FROM LIA CALDERON. PATIENT RECEIVED AWAKE AND ALERT, RESTING IN BED. PATIENT ABLE TO MAKE NEEDS KNOWN. BED IN THE LOW AND LOCKED POSITION WITH CALL LIGHT WITHIN REACH. PATIENT HAS IV SITE RUNNING PRESCRIBED FLUIDS. NO VISIBLE SIGNS OF DISTRESS NOTED. WILL CONTINUE TO MONITOR.
--- NOTE | 2018-12-27 07:30 | NUR ---
HAND-OFF: Report given to LIA Delaney. Round is done.
--- NOTE | 2018-12-27 08:01 | History and Physical ---
History of Present Illness General Date patient seen: Dec 27, 2018 Reason for Hospitalization: Skin Rash/Abscess Present Illness HPI Patient is a very pleasant 23 year old female who presented to the ED c/o 11/29 right axilla and arm pain, erythema, fluid collection and open wound. Patient underwent surgery for R axillary hidradenitis suppurativa about 4 months ago, initially did well but sutures dehisced and has an open wound that has not closed. There's a fluid collection and purulent drainage. Last seen early November at her surgeon's office. Patient denies any fevers at home but has chills and slept in till 2 pm the day of admission. Denies any trauma to the area. No relieving factors, pain aggravating by arm movement. Patient has a hx of hidradenitis suppurativa in the groin area but none is active at the moment. She has Crohn's s/p collectomy in 2014, last flare 2 years ago, in remission on Remicade. She also has depression and anxiety. In the ER her BP low normal, no tachycardia, afebrile. given antibiotics and IVF, admitted to [facility]. Past Medical History: Crohn's s/p colectomy in 2015 on Remicade, Depression, Anxiety Past Surgical History: hydradenitis, colectomy in 2014 Social history: Denies smoking cigarettes, marijuana or other illicit drugs. 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 Family history: Depression and anxiety, cousin with Crohn's Allergies: Coded Allergies: SILVER (Verified Allergy, Mild, 06/13/18) AZATHIOPRINE (Verified Allergy, Unknown, 05/15/18) DOCUSATE (Verified Allergy, Unknown, 05/15/18) ok for oral LATEX (Verified Allergy, Unknown, 05/15/18) VANCOMYCIN (Verified Allergy, Unknown, 05/15/18) BISACODYL (Verified Adverse Reaction, Severe, Rash, 05/15/18) Uncoded Allergies: IODINE CONTRAST (Allergy, Unknown, 05/15/18) TAPE (Allergy, Unknown, 05/15/18) Medication History Scheduled Aripiprazole* (Abilify*), 2.5 MG ORAL DAILY, (Reported) Aripiprazole* (Abilify*), 2 MG ORAL DAILY, (Reported) Cephalexin (Cephalexin), 500 MG ORAL QID Docusate Sodium* (Colace*), 200 MG ORAL TWICE A DAY Doxycycline Hyclate (Doxycycline Hyclate), 100 MG ORAL EVERY 12 HOURS Fluoxetine Hcl* (Prozac*), 40 MG ORAL DAILY, (Reported) Infliximab (Remicade), 632.761 MG IV EVERY 8 WEEKS, (Reported) Omeprazole Magnesium (Prilosec Otc), 20 MG ORAL DAILY, (Reported) Patient History Healthcare decision maker N Resuscitation status Full Code Advanced Directive on File Review of Systems Constitutional: Reports: no symptoms, see HPI, sweats, fever, malaise, other Eye: Denies: no symptoms, see HPI, eye pain, blurred vision, tearing, double vision, nose pain, nose congestion, acuity changes, discharge, other ENT: Denies: no symptoms, see HPI, ear pain, ear discharge, nose pain, nose congestion, throat pain, throat swelling, mouth pain, hearing loss, nasal discharge, other Respiratory: Denies: no symptoms, see HPI, cough, orthopnea, shortness of breath, stridor, wheezing, LISA, sputum, other Cardiovascular: Denies: no symptoms, see HPI, chest pain, edema, palpitations, syncope, PND, other Gastrointestinal: Denies: no symptoms, see HPI, abdominal pain, constipation, diarrhea, nausea, vomiting, melena, hematemesis, other Genitourinary: Denies: no symptoms, see HPI, discharge, dysuria, frequency, hematuria, pain, retention, incontinence, urgency, vag bleed/dc, other Musculoskeletal: Denies: no symptoms, see HPI, back pain, gout, joint pain, joint swelling, muscle pain, muscle stiffness, other Skin: Reports: see HPI - purulent open wound right axilla Psychiatric: Denies: no symptoms, see HPI, prior hx, anxiety, depressed feelings, emotional problems, SI, HI, hallucinations, other Neurological: Denies: no symptoms, see HPI, headache, numbness, paresthesia, seizure, tingling, tremors, focal weakness, syncope, dizziness, other Endocrine: Denies: no symptoms, see HPI, excessive sweating, flushing, intolerance to temperature, increased thirst, increased urine, unexplained weight loss, other Hematologic/Lymphatic: Denies: no symptoms, see HPI, anemia, blood clots, easy bleeding, easy bruising, swollen glands, diathesis, other Physical Exam Physical Exam Narrative General Appearance: no apparent distress, alert, non-toxic Head: normocephalic, atraumatic Eyes: bilateral eye normal inspection, bilateral eye PERRL ENT: hearing grossly normal, normal voice Neck: full range of motion Respiratory: lungs clear, normal breath sounds, speaking full sentences Cardiovascular: regular rate, rhythm, no m/r/g gastrointestinal: obese, soft, healed laparoscopic scars, non tender, non distended Musculoskeletal: decreased range of motion right arm due to pain Genitourinary: healed scars from previous hidradenitis Neurologic: alert, oriented x3, grossly normal Psychiatric: judgement/insight normal Skin: erythema, swelling, purulent discharge and induration in the right axilla that is approx 4.5cm in length. surgical wound open. Last 24 Hour Vital Signs Date Time Temp Pulse Resp B/P (MAP) Pulse Ox O2 Delivery O2 Flow Rate FiO2 12/27/18 04:30 98.0 53 18 99/61 (74) 97 12/27/18 00:00 98.4 74 18 97/60 (72) 97 12/26/18 21:00 Room Air 12/26/18 21:00 Room Air 12/26/18 20:50 97.7 54 18 118/60 (79) 99 12/26/18 20:42 98.5 88 16 109/72 99 Room Air 12/26/18 19:29 98.6 92 16 101/68 97 Room Air 12/26/18 19:20 98.6 92 16 101/68 (79) 97 Room Air Intake and Output 12/26/18 12/27/18 18:59 06:59 Intake Total 910 ml Balance 910 ml Intake IV Total 910 ml # Voids 2 Laboratory Tests Test 12/26/18 19:33 12/26/18 19:50 12/26/18 20:25 12/27/18 05:35 Urine HCG, Qualitative Negative (NEGATIVE) White Blood Count 9.2 K/UL (4.8-10.8) 9.0 K/UL (4.8-10.8) Red Blood Count 4.94 M/UL (4.20-5.40) 4.53 M/UL (4.20-5.40) Hemoglobin 13.4 G/DL (12.0-16.0) 12.6 G/DL (12.0-16.0) Hematocrit 40.1 % (37.0-47.0) 38.0 % (37.0-47.0) Mean Corpuscular Volume 81 FL (80-99) 84 FL (80-99) Mean Corpuscular Hemoglobin 27.0 PG (27.0-31.0) 27.9 PG (27.0-31.0) Mean Corpuscular Hemoglobin Concent 33.3 G/DL (32.0-36.0) 33.2 G/DL (32.0-36.0) Red Cell Distribution Width 11.6 % (11.6-14.8) 13.0 % (11.6-14.8) Platelet Count 282 K/UL (150-450) 300 K/UL (150-450) Mean Platelet Volume 5.5 FL (6.5-10.1) L 5.9 FL (6.5-10.1) L Neutrophils (%) (Auto) 48.7 % (45.0-75.0) 37.6 % (45.0-75.0) L Lymphocytes (%) (Auto) 43.2 % (20.0-45.0) 50.2 % (20.0-45.0) H Monocytes (%) (Auto) 5.8 % (1.0-10.0) 9.4 % (1.0-10.0) Eosinophils (%) (Auto) 1.1 % (0.0-3.0) 1.9 % (0.0-3.0) Basophils (%) (Auto) 1.2 % (0.0-2.0) 0.9 % (0.0-2.0) Sodium Level 139 MMOL/L (136-145) 142 MMOL/L (136-145) Potassium Level 3.6 MMOL/L (3.5-5.1) 3.8 MMOL/L (3.5-5.1) Chloride Level 104 MMOL/L (98-107) 109 MMOL/L (98-107) H Carbon Dioxide Level 24 MMOL/L (21-32) 26 MMOL/L (21-32) Anion Gap 11 mmol/L (5-15) 7 mmol/L (5-15) Blood Urea Nitrogen 11 mg/dL (7-18) 11 mg/dL (7-18) Creatinine 0.9 MG/DL (0.55-1.30) 0.9 MG/DL (0.55-1.30) Estimat Glomerular Filtration Rate > 60 mL/min (>60) > 60 mL/min (>60) Glucose Level 91 MG/DL (74-106) 95 MG/DL (74-106) Lactic Acid Level 1.10 mmol/L (0.4-2.0) Calcium Level 9.0 MG/DL (8.5-10.1) 8.3 MG/DL (8.5-10.1) L Total Bilirubin 0.4 MG/DL (0.2-1.0) 0.2 MG/DL (0.2-1.0) Aspartate Amino Transf (AST/SGOT) 15 U/L (15-37) 12 U/L (15-37) L Alanine Aminotransferase (ALT/SGPT) 18 U/L (12-78) 13 U/L (12-78) Alkaline Phosphatase 78 U/L (46-116) 64 U/L (46-116) Total Protein 8.1 G/DL (6.4-8.2) 6.9 G/DL (6.4-8.2) Albumin 3.5 G/DL (3.4-5.0) 2.9 G/DL (3.4-5.0) L Globulin 4.6 g/dL 4.0 g/dL Albumin/Globulin Ratio 0.8 (1.0-2.7) L 0.7 (1.0-2.7) L Prothrombin Time 10.9 SEC (9.30-11.50) Prothromb Time International Ratio 1.0 (0.9-1.1) Activated Partial Thromboplast Time 24 SEC (23-33) Magnesium Level 1.8 MG/DL (1.8-2.4) Height (Feet): 5 Height (Inches): 6.00 Weight (Pounds): 188 Medications Current Medications Medications (Trade) Dose Ordered Sig/Alix Route PRN Reason Start Time Stop Time Status Last Admin Dose Admin Acetaminophen (Tylenol) 650 mg Q4H PRN ORAL Mild Pain (Pain Scale 1-3) 12/26/18 20:15 01/25/19 20:14 Acetaminophen (Tylenol) 650 mg Q4H PRN ORAL fever 12/26/18 20:15 01/25/19 20:14 Acetaminophen (Tylenol) 650 mg Q4H PRN RECTAL Mild Pain (Pain Scale 1-3) 12/26/18 20:15 01/25/19 20:14 Acetaminophen (Tylenol) 650 mg Q4H PRN RECTAL fever 12/26/18 20:15 01/25/19 20:14 Acetaminophen/ Hydrocodone Bitart (Collison 10/325) 1 tab Q4H PRN ORAL severe pain 7-10 12/26/18 20:15 01/02/19 20:14 12/26/18 22:06 Al Hydroxide/Mg Hydroxide (Mylanta II) 30 ml Q6H PRN ORAL dyspepsia 12/26/18 20:15 01/25/19 20:14 Albuterol/ Ipratropium (Albuterol/ Ipratropium) 3 ml Q4H PRN HHN Shortness of Breath 12/26/18 20:15 12/31/18 20:14 Aripiprazole (Abilify) 2.5 mg DAILY ORAL 12/27/18 09:00 01/26/19 08:59 Dextrose (Dextrose 50%) 25 ml Q30M PRN IV Hypoglycemia 12/26/18 20:15 01/25/19 20:14 Dextrose (Dextrose 50%) 50 ml Q30M PRN IV Hypoglycemia 12/26/18 20:15 01/25/19 20:14 Diphenhydramine HCl (Benadryl) 25 mg Q6H PRN ORAL Itching/Pruritis 12/26/18 20:15 01/25/19 20:14 12/27/18 00:48 Doxycycline Hyclate 100 mg/ Dextrose 110 ml @ 110 mls/hr Q12HR IV 12/26/18 21:00 01/02/19 20:59 12/26/18 22:06 Fluoxetine HCl (PROzac) 40 mg DAILY ORAL 12/27/18 09:00 01/26/19 08:59 Hydromorphone HCl (Dilaudid) 1 mg Q6H PRN IVP Breakthrough Pain 12/26/18 20:15 01/02/19 20:14 12/27/18 01:28 Lorazepam (Ativan 2mg/ml 1ml) 0.5 mg Q4H PRN IV For Anxiety 12/26/18 20:15 01/02/19 20:14 Lorazepam (Ativan) 1 mg Q4H PRN ORAL For Anxiety 12/26/18 20:15 01/02/19 20:14 Magnesium Hydroxide (Mom) 30 ml HSPRN PRN ORAL Constipation 12/26/18 20:15 01/25/19 20:14 Methocarbamol (Robaxin) 500 mg Q4H PRN ORAL spasms 12/26/18 20:15 01/25/19 20:14 Metoclopramide HCl (Reglan) 10 mg Q6H PRN IVP Nausea & Vomiting 12/26/18 20:15 01/25/19 20:14 Nitroglycerin (Ntg) 0.4 mg Q5M X 3 DOSES PRN SL Prn Chest Pain 12/26/18 20:15 01/25/19 20:14 Ondansetron HCl (Zofran) 4 mg Q6H PRN IVP Nausea & Vomiting 12/26/18 20:15 01/25/19 20:14 Pantoprazole (Protonix) 40 mg DAILY ORAL 12/27/18 09:00 01/26/19 08:59 Polyethylene Glycol (Miralax) 17 gm HSPRN PRN ORAL Constipation 12/26/18 20:15 01/25/19 20:14 Prochlorperazine (Compazine) 10 mg Q6H PRN IVP Nausea & Vomiting 12/26/18 20:15 01/25/19 20:14 Sodium Chloride 1,000 ml @ 100 mls/hr Q10H IVLG 12/26/18 21:05 01/25/19 21:04 12/27/18 06:46 Tramadol HCl (Ultram) 50 mg Q4H PRN ORAL mod pain 4-6 12/26/18 20:15 01/02/19 20:14 Zolpidem Tartrate (Ambien) 5 mg HSPRN PRN ORAL Insomnia 12/26/18 20:15 01/02/19 20:14 Assessment/Plan Problem List: (1) Depression ICD Codes: F32.9 - Major depressive disorder, single episode, unspecified SNOMED: 95431737 (2) Anxiety ICD Codes: F41.9 - Anxiety disorder, unspecified SNOMED: 80927957 (3) Wound cellulitis ICD Codes: L03.90 - Cellulitis, unspecified SNOMED: 903449474 (4) Wound dehiscence, surgical ICD Codes: T81.31XA - Disruption of external operation (surgical) wound, not elsewhere classified, initial encounter SNOMED: 998695337 Qualifiers: Qualified Codes: T81.31XA - Disruption of external operation (surgical) wound, not elsewhere classified, initial encounter (5) Surgical site infection ICD Codes: T81.49XA - Infection following a procedure, other surgical site, initial encounter SNOMED: 80863622, 343502837 (6) Hidradenitis suppurativa of right axilla ICD Codes: L73.2 - Hidradenitis suppurativa SNOMED: 893451531 (7) Crohns disease ICD Codes: K50.90 - Crohn's disease, unspecified, without complications SNOMED: 18102666 Status: stable Assessment/Plan: 23 year old female with hx of Hidradenitis suppurativa presents with right axillary wound dehiscence, purulent discharge and wound cellulitis, failed outpatient treatment. No evidence of sirs or sepsis currently, although BP is low normal, may be developing sirs/sepsis. No leukocytosis, tachycardia or fever. #R axillary Hidradenitis suppurativa- wound dehiscence and cellulitis with purulent discharge Admit to med/surg IV antibiotics- Doxycycline- has multiple allergies. ID consult with Dr. Diallo who may change the antibiotics. d/w Patient of Dr. Brambila, who will take the patient to the OR for Right axillary debridement and flap elevation today f/u OR cultures and sensitivities IV fluids while NPO pain control- IV Benadryl for pleuritis from [employer] monitor vitals #Crohn's- stable. Last Remicade a month ago, gets it every 8 weeks #Depression/Anxiety- stable. Continue home fluoxetine, and Aripiprazole. #vte ppx: Heparin #GI ppx: omeprazole Code status: full code I spent 70 minutes on this encounter. > 50% spent on counselling and care coordination. Case d/w Drs. Brambila and Imani. d/w patient Isidro Johnson M.D. Dec 27, 2018 08:01
[2018-12-27] MEDS: HYDROcodone/Acetamin 10/325 tab ORAL PRN (08:48)
[2018-12-27] MEDS: Doxycycline Hyclate 100 MG in D5W 110 ML IV SCH (08:54)
[2018-12-27] MEDS: DiphenhydrAMINE 50mg/ml Inj IVP PRN ×3 (09:49→23:55)
--- NOTE | 2018-12-27 10:17 | Pre-Procedure Note/Attestation ---
Pre-Procedure Note/Attestation Complete Prior to Procedure Planned Procedure: right Procedure Narrative: Right axillary debridement and flap elevation Attestation I attest that I discussed the nature of the procedure; its benefits; risks and complications; and alternatives (and the risks and benefits of such alternatives ), prior to the procedure, with the patient (or the patient's legal financial services sales representative). I attest that, if there was a reasonable possibility of needing a blood transfusion, the patient (or the patient's legal financial services sales representative) was given the [facility] standardized written summary, pursuant to the Ishan [place] Blood Safety Act ([place] Health and Safety Code # 1645, as amended). I attest that I re-evaluated the patient just prior to the surgery and that there has been no change in the patient's H&P, except as documented below: Sagar Brambila MD Dec 27, 2018 10:17
--- NOTE | 2018-12-27 11:21 | NUR ---
NURSE NOTES: PATIENT LEFT THE FLOOR FOR PROCEDURE. CONSENT SIGNED AND IN THE CHART. PATIENT VERIFIED BY NAME AND DATE OF , MEDICAL RECORD NUMBER AND BRACELET. PATIENT LEFT ALERT AND ORIENTED X4, NO SIGNS OF DISTRESS.
[2018-12-27] MEDS ORDERED: Ketorolac 30mg Inj ONE (12:00)
[2018-12-27] MEDS ORDERED: Sterile Water Irrig 1000ml IRRIG ONE (12:00)
[2018-12-27] MEDS ORDERED: Propofol 200mg/20ml IV ONE (12:00)
[2018-12-27] MEDS ORDERED: LR 1000ml ONE (12:00)
[2018-12-27] MEDS ORDERED: NS Irrig 1000ml ONE (12:00)
[2018-12-27] MEDS ORDERED: Bacitracin 50000 Units Vial ONE (12:01)
[2018-12-27] MEDS ORDERED: Lidocaine 1% 10mg/ml/EPI 0.01mg/ml 50ml INJ ONE (12:01)
[2018-12-27] MEDS ORDERED: Midazolam 2mg/2ml Inj ONE (12:01)
[2018-12-27] MEDS ORDERED: fentaNYL 100 mcg/2 mL IV ONE (12:01)
[2018-12-27] MEDS ORDERED: Morphine Sulfate 10mg/ml Inj ONE (12:02)
[2018-12-27] MEDS ORDERED: Tubing IV Secondary IV ONE (12:03)
[2018-12-27] MEDS ORDERED: TransDerm Scop 1.5mg/72HR Patch TDERMAL ONE (12:19)
[2018-12-27] MEDS ORDERED: Acetaminophen (Non formulary) 100 ML IV ONE (12:45)
[2018-12-27] MEDS ORDERED: LR 1000ml 1,000 ML IVLG SCH (12:53)
--- NOTE | 2018-12-27 12:53 | Anethesia Preoperative Eval ---
Anesthesia Pre-op PMH/ROS General Date of Evaluation: Dec 27, 2018 Time of Evaluation: 12:10 Anesthesiologist: Mariola ASA Score: ASA 2 Mallampati Score Class I : Soft palate, uvula, fauces, pillars visible Class II: Soft palate, uvula, fauces visible Class III: Soft palate, base of uvula visible Class IV: Only hard plate visible Mallampati Classification: Class II Surgeon: Patty Diagnosis: Recurrent HS Surgical Procedure: Excision of R axillary HS Anesthesia History: PONV Family History: no anesthesia problems Allergies: Coded Allergies: SILVER (Verified Allergy, Mild, 06/13/18) AZATHIOPRINE (Verified Allergy, Unknown, 05/15/18) DOCUSATE (Verified Allergy, Unknown, 05/15/18) ok for oral LATEX (Verified Allergy, Unknown, 05/15/18) VANCOMYCIN (Verified Allergy, Unknown, 05/15/18) BISACODYL (Verified Adverse Reaction, Severe, Rash, 05/15/18) Uncoded Allergies: IODINE CONTRAST (Allergy, Unknown, 05/15/18) TAPE (Allergy, Unknown, 05/15/18) Medications: see eMAR Patient NPO?: Yes NPO Date: Dec 27, 2018 NPO Time: 1200 Past Medical History Cardiovascular: Denies: HTN, CAD, [place], valve dz, arrhythmia, other Pulmonary: Denies: asthma, COPD, INDIRA, other Gastrointestinal/Genitourinary: Reports: GERD - mild; Denies: CRI, ESRD, other Neurologic/Psychiatric: Reports: depression/anxiety; Denies: dementia, CVA, TIA, other Endocrine: Denies: DM, hypothyroidism, steroids, other HEENT: Denies: cataract (L), cataract (R), glaucoma, MASHPEE (L), MASHPEE (R), other Hematology/Immune: Reports: anemia - mild; Denies: DVT, bleeding disorder, other Musculoskeletal/Integumentary: Reports: other - recurrent HS; Denies: OA, RA, DJD, DDD, edema Other: other - overweight PMH Narrative: as above PSxH Narrative: multiple for HS treatment Anesthesia Pre-op Phys. Exam Physician Exam Last Vital Signs Date Time Temp Pulse Resp B/P (MAP) Pulse Ox O2 Delivery O2 Flow Rate FiO2 12/27/18 11:38 98.1 68 20 102/64 (77) 99 12/27/18 09:00 Room Air Constitutional: NAD Neurologic: CN 2-12 intact Cardiovascular: RRR, no M/R/G Gastrointestinal: S/NT/ND Airway Exam Mallampati Score: Class II MO: full Neck: flexible ROM: full Teeth: intact Dentures: no upper, no lower Anesthesia Pre-op A/P Labs Hematology Test 12/26/18 19:50 12/27/18 05:35 White Blood Count 9.2 K/UL (4.8-10.8) 9.0 K/UL (4.8-10.8) Red Blood Count 4.94 M/UL (4.20-5.40) 4.53 M/UL (4.20-5.40) Hemoglobin 13.4 G/DL (12.0-16.0) 12.6 G/DL (12.0-16.0) Hematocrit 40.1 % (37.0-47.0) 38.0 % (37.0-47.0) Mean Corpuscular Volume 81 FL (80-99) 84 FL (80-99) Mean Corpuscular Hemoglobin 27.0 PG (27.0-31.0) 27.9 PG (27.0-31.0) Mean Corpuscular Hemoglobin Concent 33.3 G/DL (32.0-36.0) 33.2 G/DL (32.0-36.0) Red Cell Distribution Width 11.6 % (11.6-14.8) 13.0 % (11.6-14.8) Platelet Count 282 K/UL (150-450) 300 K/UL (150-450) Mean Platelet Volume 5.5 FL (6.5-10.1) L 5.9 FL (6.5-10.1) L Neutrophils (%) (Auto) 48.7 % (45.0-75.0) 37.6 % (45.0-75.0) L Lymphocytes (%) (Auto) 43.2 % (20.0-45.0) 50.2 % (20.0-45.0) H Monocytes (%) (Auto) 5.8 % (1.0-10.0) 9.4 % (1.0-10.0) Eosinophils (%) (Auto) 1.1 % (0.0-3.0) 1.9 % (0.0-3.0) Basophils (%) (Auto) 1.2 % (0.0-2.0) 0.9 % (0.0-2.0) Coagulation Test 12/26/18 20:25 Prothrombin Time 10.9 SEC (9.30-11.50) Prothromb Time International Ratio 1.0 (0.9-1.1) Activated Partial Thromboplast Time 24 SEC (23-33) Chemistry Test 12/26/18 19:50 12/27/18 05:35 Sodium Level 139 MMOL/L (136-145) 142 MMOL/L (136-145) Potassium Level 3.6 MMOL/L (3.5-5.1) 3.8 MMOL/L (3.5-5.1) Chloride Level 104 MMOL/L (98-107) 109 MMOL/L (98-107) H Carbon Dioxide Level 24 MMOL/L (21-32) 26 MMOL/L (21-32) Anion Gap 11 mmol/L (5-15) 7 mmol/L (5-15) Blood Urea Nitrogen 11 mg/dL (7-18) 11 mg/dL (7-18) Creatinine 0.9 MG/DL (0.55-1.30) 0.9 MG/DL (0.55-1.30) Estimat Glomerular Filtration Rate > 60 mL/min (>60) > 60 mL/min (>60) Glucose Level 91 MG/DL (74-106) 95 MG/DL (74-106) Lactic Acid Level 1.10 mmol/L (0.4-2.0) Calcium Level 9.0 MG/DL (8.5-10.1) 8.3 MG/DL (8.5-10.1) L Total Bilirubin 0.4 MG/DL (0.2-1.0) 0.2 MG/DL (0.2-1.0) Aspartate Amino Transf (AST/SGOT) 15 U/L (15-37) 12 U/L (15-37) L Alanine Aminotransferase (ALT/SGPT) 18 U/L (12-78) 13 U/L (12-78) Alkaline Phosphatase 78 U/L (46-116) 64 U/L (46-116) Total Protein 8.1 G/DL (6.4-8.2) 6.9 G/DL (6.4-8.2) Albumin 3.5 G/DL (3.4-5.0) 2.9 G/DL (3.4-5.0) L Globulin 4.6 g/dL 4.0 g/dL Albumin/Globulin Ratio 0.8 (1.0-2.7) L 0.7 (1.0-2.7) L Magnesium Level 1.8 MG/DL (1.8-2.4) Urine Test Test 12/26/18 19:33 Urine HCG, Qualitative Negative (NEGATIVE) Risk Assessment & Plan Assessment: ASA 2 Plan: GA with LMA PONV prevention Status Change Before Surgery: No Pre-Antibiotics Drug: Ancef 1gr. Given Within 1 Hr of Incision: Yes Time Given: 12:46 Baudilio Garnett MD Dec 27, 2018 12:53
[2018-12-27] MEDS ORDERED: Metoclopramide 10mg/2ml Inj IVP PRN (13:00)
[2018-12-27] MEDS ORDERED: DiphenhydrAMINE 50mg/ml Inj IVP PRN (13:00)
[2018-12-27] MEDS ORDERED: Ketorolac 30mg Inj IV PRN (13:00)
[2018-12-27] MEDS ORDERED: Meperidine 50mg/ml Inj(FOR RIGORS ONLY) IV PRN (13:00)
[2018-12-27] MEDS ORDERED: Hydromorphone 0.5mg/0.5ml inj IVP PRN (13:00)
[2018-12-27] MEDS ORDERED: Midazolam 2mg/2ml Inj IVP PRN (13:00)
--- NOTE | 2018-12-27 13:35 | Operative Note - PDOC ---
Operative Note Operative Note Procedure: Right axillary debridement and flap elevation Surgeon: Patty Animal Behaviourist: Ava Anesthesia: general Specimen: yes Complications: none Condition: stable Estimated Blood Loss: none Drains: none Implant(s) used?: No Sagar Brambila MD Dec 27, 2018 13:35
--- NOTE | 2018-12-27 13:50 | Immediate Post-Op Evaluation ---
Immediate Post-Op Evalulation Immediate Post-Op Evalulation Procedure: Excision of R axillary HS Date of Evaluation: Dec 27, 2018 Time of Evaluation: 13:48 IV Fluids: 800 Blood Products: none Estimated Blood Loss: 50 Urinary Output: none Blood Pressure Systolic: 118 Blood Pressure Diastolic: 64 Pulse Rate: 72 Respiratory Rate: 20 O2 Sat by Pulse Oximetry: 98 Temperature (Fahrenheit): 97.6 Pain Score (1-10): 2 Nausea: No Vomiting: No Complications none Patient Status: reacts, patent, none Hydration Status: adequate Baudilio Garnett MD Dec 27, 2018 13:50
[2018-12-27] MEDS ORDERED: PCA HYDROmorphone 1mg/ml 30 ML IV PRN (14:00)
[2018-12-27] MEDS ORDERED: Rate Change PCA 1 Each MISC PRN (14:00)
--- NOTE | 2018-12-27 14:19 | NUR ---
*-* INSURANCE *--* ALL CLINICALS HAVE BEEN FAXED TO: [facility] FAX CLINICALS TO [phone]
--- NOTE | 2018-12-27 14:20 | NUR ---
NURSE NOTES: PATIENT TOLERATING ICE CHIPS AND WATER WELL. PATIENT ALERT AND ORIENTED AND ABLE TO MAKE NEEDS KNOWN. NO SIGNS OF DISTRESS NOTED. PATIENTS RESPIRATORY RATE OF 14. PATIENT HAS INCENTIVE SPIROMETER AT BEDSIDE, STATED THAT RESPIRATORY THERAPIST SHOWED HER HOW TO USE IT AND VERBALIZED UNDERSTANDING OF USING INCENTIVE SPIROMETER EVERY HOUR. WILL CONTINUE TO MONITOR PATIENT. Addendum: 12/27/18 at 1708 by Rhett Barnes RN NURSE NOTE TIME STAMP SHOULD BE 16:20 NOT 14:20
--- NOTE | 2018-12-27 15:00 | NUR ---
NURSE NOTES: PATIENT ARRIVED TO THE FLOOR, PATIENT AWAKE AND ALERT AND RESTING IN BED. GAVE PATIENT ICE CHIPS AND TOOK VITALS: TEMP 98.2 HEART RATE 74, 02 SATURATION 97% BP 138/63, RESPIRATORY RATE OF 14.
--- NOTE | 2018-12-27 15:03 | NUR ---
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
[2018-12-27] MEDS ORDERED: PCA Education Pamphlet MISC SCH (15:30)
--- NOTE | 2018-12-27 15:30 | NUR ---
RESPIRATORY NOTE: End tial CO2 monitor set up for patient with INSURANCE COORDINATOR. Pt is on 2L NC 28% FiO2, awake, alert and able to follow commands. Alarms set at 35-45 mmHg. Pt's vital signs: HR 56bpm, RR 13bpm, saturates 100%, EtCO2 43mmHg. Balbir Barnes at bedside and aware.
--- NOTE | 2018-12-27 15:33 | Infectious Diseases Prog Note ---
Assessment/Plan Assessment/Plan Full consult dictated: A) 1) right axilla infected wound with cellulitis and possible abscess 2) s/p wound debridement and flap elevation 3) hidradenitis suppurativa 4) pmh noted 5) allergies - vancomycin, multiple allergies noted P) 1) daptomycin and cefepime 2) f/u on cultures 3) d/w Dr. Johnson 4) thank you Subjective Allergies: Coded Allergies: SILVER (Verified Allergy, Mild, 06/13/18) AZATHIOPRINE (Verified Allergy, Unknown, 05/15/18) DOCUSATE (Verified Allergy, Unknown, 05/15/18) ok for oral LATEX (Verified Allergy, Unknown, 05/15/18) VANCOMYCIN (Verified Allergy, Unknown, 05/15/18) BISACODYL (Verified Adverse Reaction, Severe, Rash, 05/15/18) Uncoded Allergies: IODINE CONTRAST (Allergy, Unknown, 05/15/18) TAPE (Allergy, Unknown, 05/15/18) Objective Vital Signs Last 24 Hour Vital Signs Date Time Temp Pulse Resp B/P (MAP) Pulse Ox O2 Delivery O2 Flow Rate FiO2 12/27/18 14:40 73 12 122/59 100 Nasal Cannula 3 12/27/18 14:30 16 12/27/18 14:30 98.0 12/27/18 14:30 98.0 12/27/18 14:30 98.0 12/27/18 14:30 98.0 12/27/18 14:25 98.0 68 12 128/56 100 Nasal Cannula 3 12/27/18 14:10 79 15 132/54 100 Nasal Cannula 3 12/27/18 14:00 82 15 110/56 100 Simple Mask 6 12/27/18 13:50 68 12 113/55 100 Simple Mask 6 12/27/18 13:50 72 20 98 12/27/18 13:45 84 13 118/55 100 Simple Mask 6 12/27/18 13:42 97.4 75 12 119/52 100 Simple Mask 6 12/27/18 11:38 98.1 68 20 102/64 (77) 99 12/27/18 09:00 Room Air 12/27/18 08:00 97.6 60 19 101/59 (73) 97 12/27/18 04:30 98.0 53 18 99/61 (74) 97 12/27/18 00:00 98.4 74 18 97/60 (72) 97 12/26/18 21:00 Room Air 12/26/18 21:00 Room Air 12/26/18 20:50 97.7 54 18 118/60 (79) 99 12/26/18 20:42 98.5 88 16 109/72 99 Room Air 12/26/18 19:29 98.6 92 16 101/68 97 Room Air 12/26/18 19:20 98.6 92 16 101/68 (79) 97 Room Air Height (Feet): 5 Height (Inches): 6.00 Weight (Pounds): 188 Laboratory Tests Test 12/26/18 19:33 12/26/18 19:50 12/26/18 20:25 12/27/18 05:35 Urine HCG, Qualitative Negative (NEGATIVE) White Blood Count 9.2 K/UL (4.8-10.8) 9.0 K/UL (4.8-10.8) Red Blood Count 4.94 M/UL (4.20-5.40) 4.53 M/UL (4.20-5.40) Hemoglobin 13.4 G/DL (12.0-16.0) 12.6 G/DL (12.0-16.0) Hematocrit 40.1 % (37.0-47.0) 38.0 % (37.0-47.0) Mean Corpuscular Volume 81 FL (80-99) 84 FL (80-99) Mean Corpuscular Hemoglobin 27.0 PG (27.0-31.0) 27.9 PG (27.0-31.0) Mean Corpuscular Hemoglobin Concent 33.3 G/DL (32.0-36.0) 33.2 G/DL (32.0-36.0) Red Cell Distribution Width 11.6 % (11.6-14.8) 13.0 % (11.6-14.8) Platelet Count 282 K/UL (150-450) 300 K/UL (150-450) Mean Platelet Volume 5.5 FL (6.5-10.1) L 5.9 FL (6.5-10.1) L Neutrophils (%) (Auto) 48.7 % (45.0-75.0) 37.6 % (45.0-75.0) L Lymphocytes (%) (Auto) 43.2 % (20.0-45.0) 50.2 % (20.0-45.0) H Monocytes (%) (Auto) 5.8 % (1.0-10.0) 9.4 % (1.0-10.0) Eosinophils (%) (Auto) 1.1 % (0.0-3.0) 1.9 % (0.0-3.0) Basophils (%) (Auto) 1.2 % (0.0-2.0) 0.9 % (0.0-2.0) Sodium Level 139 MMOL/L (136-145) 142 MMOL/L (136-145) Potassium Level 3.6 MMOL/L (3.5-5.1) 3.8 MMOL/L (3.5-5.1) Chloride Level 104 MMOL/L (98-107) 109 MMOL/L (98-107) H Carbon Dioxide Level 24 MMOL/L (21-32) 26 MMOL/L (21-32) Anion Gap 11 mmol/L (5-15) 7 mmol/L (5-15) Blood Urea Nitrogen 11 mg/dL (7-18) 11 mg/dL (7-18) Creatinine 0.9 MG/DL (0.55-1.30) 0.9 MG/DL (0.55-1.30) Estimat Glomerular Filtration Rate > 60 mL/min (>60) > 60 mL/min (>60) Glucose Level 91 MG/DL (74-106) 95 MG/DL (74-106) Lactic Acid Level 1.10 mmol/L (0.4-2.0) Calcium Level 9.0 MG/DL (8.5-10.1) 8.3 MG/DL (8.5-10.1) L Total Bilirubin 0.4 MG/DL (0.2-1.0) 0.2 MG/DL (0.2-1.0) Aspartate Amino Transf (AST/SGOT) 15 U/L (15-37) 12 U/L (15-37) L Alanine Aminotransferase (ALT/SGPT) 18 U/L (12-78) 13 U/L (12-78) Alkaline Phosphatase 78 U/L (46-116) 64 U/L (46-116) Total Protein 8.1 G/DL (6.4-8.2) 6.9 G/DL (6.4-8.2) Albumin 3.5 G/DL (3.4-5.0) 2.9 G/DL (3.4-5.0) L Globulin 4.6 g/dL 4.0 g/dL Albumin/Globulin Ratio 0.8 (1.0-2.7) L 0.7 (1.0-2.7) L Prothrombin Time 10.9 SEC (9.30-11.50) Prothromb Time International Ratio 1.0 (0.9-1.1) Activated Partial Thromboplast Time 24 SEC (23-33) Magnesium Level 1.8 MG/DL (1.8-2.4) Current Medications Medications (Trade) Dose Ordered Sig/Alix Route PRN Reason Start Time Stop Time Status Last Admin Dose Admin Acetaminophen (Tylenol) 650 mg Q4H PRN ORAL Mild Pain (Pain Scale 1-3) 12/26/18 20:15 01/25/19 20:14 Acetaminophen (Tylenol) 650 mg Q4H PRN ORAL FEVER (temp>100.5F) 12/27/18 13:45 01/26/19 13:44 Acetaminophen (Tylenol) 650 mg Q4H PRN RECTAL Mild Pain (Pain Scale 1-3) 12/26/18 20:15 01/25/19 20:14 Acetaminophen (Tylenol) 650 mg Q4H PRN RECTAL fever 12/26/18 20:15 01/25/19 20:14 Acetaminophen/ Hydrocodone Bitart ([place] 10/325) 1 tab Q4H PRN ORAL severe pain 7-10 12/26/18 20:15 01/02/19 20:14 12/27/18 08:48 Al Hydroxide/Mg Hydroxide (Mylanta II) 30 ml Q6H PRN ORAL dyspepsia 12/26/18 20:15 01/25/19 20:14 Albuterol/ Ipratropium (Albuterol/ Ipratropium) 3 ml Q4H PRN HHN Shortness of Breath 12/26/18 20:15 12/31/18 20:14 Aripiprazole (Abilify) 2.5 mg DAILY ORAL 12/27/18 09:00 01/26/19 08:59 12/27/18 08:46 Dextrose (Dextrose 50%) 25 ml Q30M PRN IV Hypoglycemia 12/26/18 20:15 01/25/19 20:14 Dextrose (Dextrose 50%) 50 ml Q30M PRN IV Hypoglycemia 12/26/18 20:15 01/25/19 20:14 Diphenhydramine HCl (Benadryl) 25 mg Q6H PRN IVP Itching 12/27/18 09:45 01/26/19 09:44 12/27/18 09:49 Doxycycline Hyclate 100 mg/ Dextrose 110 ml @ 110 mls/hr Q12HR IV 12/26/18 21:00 01/02/19 20:59 12/27/18 08:54 Fluoxetine HCl (PROzac) 40 mg DAILY ORAL 12/27/18 09:00 01/26/19 08:59 12/27/18 08:46 Heparin Sodium (Porcine) (Heparin 5000 units/ml) 5,000 units EVERY 12 HOURS SUBQ 12/27/18 21:00 01/26/19 20:59 Hydromorphone HCl 30 ml @ 0 mls/hr Q24H PRN IV For Pain 12/27/18 14:00 12/29/18 13:59 12/27/18 14:18 Hydromorphone HCl (Dilaudid) 1 mg Q6H PRN IVP Breakthrough Pain 12/26/18 20:15 01/02/19 20:14 12/27/18 01:28 Lorazepam (Ativan 2mg/ml 1ml) 0.5 mg Q4H PRN IV For Anxiety 12/26/18 20:15 01/02/19 20:14 Lorazepam (Ativan) 1 mg Q4H PRN ORAL For Anxiety 12/26/18 20:15 01/02/19 20:14 Magnesium Hydroxide (Mom) 30 ml HSPRN PRN ORAL Constipation 12/26/18 20:15 01/25/19 20:14 Methocarbamol (Robaxin) 500 mg Q4H PRN ORAL spasms 12/26/18 20:15 01/25/19 20:14 Metoclopramide HCl (Reglan) 10 mg Q6H PRN IVP Nausea & Vomiting 12/26/18 20:15 12/6/19 20:14 Miscellaneous Medication ([employer] Education Pamphlet) 1 ea ONCE MISC 12/27/18 15:30 12/27/18 18:00 Miscellaneous Medication ([employer] ENGINEER Rate Change) 1 ea DAILY PRN MISC rate change 12/27/18 14:00 12/29/18 13:59 Miscellaneous Medication ([employer] ENG[employer] shift volume) 1 ea Q12HR@0700,1900 MISC 12/27/18 19:00 12/29/18 18:59 Nitroglycerin (Ntg) 0.4 mg Q5M X 3 DOSES PRN SL Prn Chest Pain 12/26/18 20:15 01/25/19 20:14 Ondansetron HCl (Zofran) 4 mg Q6H PRN IVP Nausea & Vomiting 12/27/18 13:45 01/26/19 13:44 Pantoprazole (Protonix) 40 mg DAILY ORAL 12/27/18 09:00 01/26/19 08:59 12/27/18 08:46 Polyethylene Glycol (Miralax) 17 gm HSPRN PRN ORAL Constipation 12/26/18 20:15 01/25/19 20:14 Prochlorperazine (Compazine) 10 mg Q6H PRN IVP Nausea & Vomiting 12/26/18 20:15 01/25/19 20:14 Sodium Chloride 1,000 ml @ 100 mls/hr Q10H IVLG 12/26/18 21:05 01/25/19 21:04 12/27/18 06:46 Temazepam (Restoril) 7.5 mg HSPRN PRN ORAL Insomnia 12/27/18 15:30 01/03/19 13:44 Tramadol HCl (Ultram) 50 mg Q4H PRN ORAL mod pain 4-6 12/26/18 20:15 01/02/19 20:14 Zolpidem Tartrate (Ambien) 5 mg HSPRN PRN ORAL Insomnia 12/27/18 13:45 01/03/19 13:44 Niya Holley MD Dec 27, 2018 15:33
--- NOTE | 2018-12-27 15:45 | Consultation ---
DATE OF CONSULTATION: 12/27/2018 CONSULTING PHYSICIAN: Sagar Brambila M.D. ADMITTING PHYSICIAN: Mary Cabrera M.D. ADMITTING DIAGNOSIS: Right axillary wound cellulitis with abscess. HISTORY OF PRESENT ILLNESS: This is a 23-year-old female, who is well known to me for her extensive history of hidradenitis suppurativa. As a background, the patient has had HS for several years and has previously failed all medical management. She has had previous surgery on her left axilla with radical excision and reconstruction and more recently had a right axillary hidradenitis excision with reconstruction in early September, had been doing well postoperatively but more recently has developed a significant amount of pain and drainage with abscess formation in and around the previous reconstruction. She presented to an outside emergency room at [facility] with significant pain and was then transferred over to [facility] emergency room for continued pain control and was admitted for IV antibiotics and administration of pain medication. PAST MEDICAL HISTORY: Significant for Crohn disease and hidradenitis suppurativa. PAST SURGICAL HISTORY: Includes previous excision of hidradenitis with reconstruction. ALLERGIES: Include azathioprine, bisacodyl, docusate, iodine contrast, latex, sliver tape, and vancomycin. PHYSICAL EXAMINATION: GENERAL: The patient is alert and oriented, in mild to moderate distress. HEART: Regular rate and rhythm. ABDOMEN: Soft, nontender, and nondistended. EXTREMITIES: Examination of her extremities and trunk reveals an area of wound dehiscence with multiple areas of abscesses in the right axilla including the area of the flap reconstruction from the previous surgery. It is exquisitely tender to touch and the patient is unable to tolerate prolonged pressure on the area. ASSESSMENT AND PLAN: This is a 23-year-old female, who presents with right axillary abscess and cellulitis with what appears to be a recurrence of hidradenitis. Plan will be to perform a radical excision of the involved tissue with flap elevation and given the fact that this is a infectious process, we will not perform definitive wound closure at this time. She understands the plan and agrees to proceed. Sagar Brambila M.D. DR: Shayna JOB#: [id number] CC: QUENTIN
[2018-12-27 16:04] LABS: CREATINE KINASE 55 U/L (26-308)
[2018-12-27] MEDS: DAPTOmycin 500 MG in NS 50 ML IV SCH (18:17)
--- NOTE | 2018-12-27 19:10 | NUR ---
NURSE NOTES: PATIENT SUCCESSFULLY VOIDED POST SURGERY.
--- NOTE | 2018-12-27 19:15 | Operative Note - Dictated ---
DATE OF OPERATION: 12/27/2018 PREOPERATIVE DIAGNOSIS: Recurrent axillary hidradenitis with active abscess and drainage. POSTOPERATIVE DIAGNOSIS: Recurrent axillary hidradenitis with active abscess and drainage. PROCEDURES: 1. Radical excision of right axillary tissue bearing hidradenitis with acute abscess. 2. Elevation of lateral chest wall flap measuring 8 x 15 cm. SURGEON: Sagar Brambila M.D. PATTERNMAKER HELPER: Enzo Escalante M.D. ANESTHESIA: General. COMPLICATIONS: None. DRAINS: None. SPECIMEN: Included right axillary tissue. DISPOSITION: Stable to the recovery room. INDICATIONS FOR SURGERY: This is a 23-year-old female with known history of hidradenitis suppurativa who had a previous excision of infected hidradenitis in her right axilla approximately 3.5 months ago who has had a recurrence and presented to the emergency room in significant pain and disability with infection in the area with new areas of abscess as well as recurrent hidradenitis suppurativa. Of note the patient has had HS for several years and has previously failed all medical management. Hs had frequent ER visits due to uncontrollable pain and drainage much like this recent admission. On this admission she was started on IV antibiotics and it was felt she should be an appropriate candidate for re-excision of wider area bearing the infection with flap elevation and delayed reconstruction given the infection that was present. She understood the risks and benefits of surgery and agreed to proceed. DETAILS OF THE OPERATION: The patient was brought to the operating room and laid in the supine position on the operating room table. Her right axilla was prepped and draped in a sterile and usual fashion. We first began by marking out the area of disease and infection as well as the flap necessary to be elevated for the closure of the resulting right axillary defect. Once this was done, a #10 blade was used to make the incision around the axillary tissue and electrocautery was then used to completely excise the disease and infection bearing tissue. This resulted in a defect that measured approximately 10 x 12 cm and was clearly not amenable to definitive closure. As such a lateral chest wall flap based off of perforators of the thoracodorsal artery with measurements of 15 x 8 centimeters was designed. A U-shaped skin incision for the flap was made. Dissection was carried down to the latissimus muscle. With the flap fully mobilized, we noted the flap could be easily into the defect with good soft tissue coverage of the area. With the flap fully mobilized the base was examined to assure good inflow by assesing the flaps width to length ratio and confirming good distal blood flow following sharp abrasion of the flap which revealed bright red bleeding. The flap was then inset and the donor site was closed tentatively to note to make sure that there was no tension upon either closure and appeared to be optimal. The flap was then released from the wound and the wound was then examined for any evidence of bleeding. Hemostasis was achieved. The flap was then placed back in its donor site position with the intention of bringing the patient back within 3 to 4 days for definitive flap closure. The reason for the delay is the presence of the infection in the wound and the high risk of wound infection following immediate closure of the wound at the same operation. The open area was then covered with Surgicel as well as bulky dressings and the flap was noted to be viable upon completion of the operation. The patient tolerated the procedure well. There was no complications. All needle and sponge counts were correct at the end of case. Sagar Brambila M.D. DR: Shayna JOB#: [id number] CC: QUENTIN
[2018-12-27] MEDS: PCA shift volume MISC SCH (19:26)
--- NOTE | 2018-12-27 19:33 | NUR ---
HAND-OFF: Report given to LIA GAYTAN.
--- NOTE | 2018-12-27 19:58 | NUR ---
NURSE NOTES: Received patient in bed, awake, alert, oriented, no acute distress noted, IV site is clean dry and intact. Call light is within reach, bed is in low position, locked and alarm is on. Will continue to monitor for comfort and safety.
[2018-12-27] MEDS: Cefepime HCl 2 GM in D5W 55 ML IVPB SCH (21:30)
[2018-12-27] MEDS: Heparin 5000 units/ml inj SUBQ SCH (21:31)
[2018-12-28] VITALS: BP 124/65
--- NOTE | 2018-12-28 | Consultation ---
DATE OF CONSULTATION: 12/27/2018 INFECTIOUS DISEASE CONSULTATION CONSULTING PHYSICIAN: Niya Holley M.D. ATTENDING PHYSICIAN: Mary Cabrera M.D. REFERRING PHYSICIAN: Dr. Isidro Johnson. REASON FOR CONSULTATION: Infected right axilla wound. CHIEF COMPLAINT: The patient's chief complaint coming in to the hospital is cellulitis and infected wound in the right axilla. HISTORY OF PRESENT ILLNESS: This is a very pleasant 23-year-old female, who has a history of hidradenitis suppurativa. The patient has history of multiple surgeries including under the right axilla. The patient presents to [facility] with right axilla infected wound with arm pain what looks like cellulitis, erythema and fluid collection, possible abscess. The patient did have a history of approximately 4 months ago wound dehiscence to the right axilla. I am not clear if she had surgery, but she has history of wound dehiscence to the right axilla in the past for about 4 months ago. The patient is status post debridement when I saw her for the right axilla wound infection and also flap elevation. The patient per the records had purulent discharge from this area just right now and when I saw her, her wound is covered postsurgically. Also, she had erythema and fluid collection. Infectious Disease consultation is requested for antibiotic management in this patient and I placed the patient on daptomycin and cefepime. Of note, she is allergic to vancomycin and she has history of depression and discussed with Dr. Johnson. She has been on antidepressants thus could not use Zyvox. Case was discussed with Dr. Johnson. MAR is noted. Orders were noted. Notes and records were reviewed. Case was discussed with the patient. REVIEW OF SYSTEMS: CONSTITUTIONAL: The patient has no focal weakness. She has no fever or chills. Postoperative pain is controlled. HEAD AND NECK: No head pain or neck pain. CARDIAC: No chest pain. GASTROINTESTINAL: No nausea, vomiting, or diarrhea. GENITOURINARY: No Simmons. No dysuria or frequency. PULMONARY: No congestion or shortness of breath. SKIN: No rash or itching. EXTREMITY: No pain. NEUROLOGIC: No seizures. PAST MEDICAL HISTORY: The patient's past medical history includes the following. She has history of hidradenitis suppurativa. She has history of Crohn disease status post colectomy and Remicade and it is in remission. She has history of depression and anxiety. No history of diabetes or hypertension. MEDICATIONS: Upon reviewing the MAR, she is on the following medications. She is on cefepime and vancomycin. She is on heparin. She is on Restoril. She has been on Remicade. She is on hydromorphone, Ambien, Tylenol, Prozac, Abilify, Protonix, Benadryl, acetaminophen, Lorazepam, Compazine, Reglan, Robaxin, and nitroglycerin. Outside medications were noted and reconciliated. She has been on omeprazole and Remicade as discussed. ALLERGIES: She is allergic to azathioprine, bisacodyl, docusate, iodine, latex, silver tape, and vancomycin. SOCIAL HISTORY: Negative for smoking, alcohol, or drug abuse. FAMILY HISTORY: Positive for Crohn disease, depression, anxiety. No history of cancer or tuberculosis. PHYSICAL EXAMINATION: VITAL SIGNS: Temperature is 97.7, pulse rate 73, respiratory rate 12, blood pressure 130/62, and saturation 97%. GENERAL: Alert and responsive, in no distress. HEAD AND NECK: Oral exam, no thrush. Eye exam, no icterus. Neck is supple. No JVD. Normocephalic. HEART: Regular. No gallop or murmur. ABDOMEN: Soft. Positive bowel sounds. Nontender. LUNGS: Clear bilaterally. No rhonchi or rales. SKIN: No rash. MUSCULOSKELETAL: No effusion. Legs are without cellulitis. PERIPHERAL VASCULAR: No gangrene. : I did not see a Simmons. LINE SITES: Without phlebitis. NEUROLOGIC: Intact. Nonfocal. Alert and oriented. Right axilla wound is covered postsurgically. LABORATORY AND DIAGNOSTIC DATA: Laboratory data is as follows. Creatinine 0.9. CK 55. White count 9.0 and hemoglobin 12.6. Wound cultures pending. Her screen is negative. IMAGING STUDIES: There is none at this point. ASSESSMENT AND PLAN: 1. The patient has right axilla infected wound with purulent drainage, cellulitis, and abscess. The patient is status post debridement and some flap elevation. The patient has a history of hidradenitis suppurativa and history of multiple surgeries. At this time because of vancomycin allergy, we will place the patient on daptomycin and cefepime for gram-positive and gram-negative coverage including methicillin-resistant Staphylococcus aureus. Continue with daptomycin and cefepime for right axilla infected wound abscess cellulitis. She is status post debridement. Check cultures from Surgery if done. Follow up on those cultures. Further management by Dr. Brambila from Surgery. 2. Depression. 3. Anxiety. 4. Crohn's disease. 5. History of colectomy. On Remicade. 6. Hidradenitis suppurativa. 7. History of colectomy. 8. Allergies to azathioprine, bisacodyl, docusate, iodine, vancomycin, latex, and silver tape. 9. Family history is positive for depression, anxiety, and Crohn's. 10. Social history is negative. 11. MAR was noted. 12. Case was discussed with RN. 13. Case was discussed with Dr. Johnson. 14. Continue treatment per primary consultants. Niya Holley M.D. DR: VARGHESE JOB#: [id number] CC:
--- NOTE | 2018-12-28 03:45 | NUR ---
NURSE NOTES: one episode of vomiting noted, medicated with Reglan as prescribed.
[2018-12-28 04:00] VITALS: BP_SYST 122; BP_SYST 128; BP_DIAS 68; BP_DIAS 78
[2018-12-28 06:39] LABS: ANION GAP 8 mmol/L (5-15); BASOPHILS % (AUTO) 0.3 % (0.0-2.0); BLOOD UREA NITROGEN 5 mg/dL (7-18); CALCIUM 8.4 MG/DL (8.5-10.1); CARBON DIOXIDE 25 MMOL/L (21-32); CHLORIDE 106 MMOL/L (98-107); CREATININE 0.7 MG/DL (0.55-1.30); EOSINOPHILS % (AUTO) 0.2 % (0.0-3.0); HEMATOCRIT 37.8 % (37.0-47.0); HEMOGLOBIN 12.3 G/DL (12.0-16.0); MEAN CORPUSCULAR VOLUME 85 FL (80-99); MONOCYTES % (AUTO) 3.4 % (1.0-10.0); NEUTROPHILS % (AUTO) 76.1 % (45.0-75.0); PLATELET COUNT 274 K/UL (150-450); POTASSIUM 4.3 MMOL/L (3.5-5.1); RED BLOOD COUNT 4.47 M/UL (4.20-5.40); RED CELL DISTRIBUTION WIDTH 13.1 % (11.6-14.8); SODIUM 139 MMOL/L (136-145); WHITE BLOOD COUNT 11.6 K/UL (4.8-10.8)
[2018-12-28] MEDS: PCA shift volume MISC SCH ×2 (06:57→19:25)
--- NOTE | 2018-12-28 07:01 | NUR ---
HAND-OFF: Report given to Rhett FITZGERALD.
--- NOTE | 2018-12-28 07:30 | NUR ---
NURSE NOTES: Patient is in bed asleep. Stable. Breathing is even and unlabored. No visible signs of distress noted at this time. Patient is in bed in locked and lowest position with call light within reach. Will continue to monitor.
--- NOTE | 2018-12-28 07:46 | General Progress Note ---
Assessment/Plan Problem List: (1) Depression ICD Codes: F32.9 - Major depressive disorder, single episode, unspecified SNOMED: 26728825 (2) Anxiety ICD Codes: F41.9 - Anxiety disorder, unspecified SNOMED: 49102460 (3) Wound cellulitis ICD Codes: L03.90 - Cellulitis, unspecified SNOMED: 923973861 (4) Wound dehiscence, surgical ICD Codes: T81.31XA - Disruption of external operation (surgical) wound, not elsewhere classified, initial encounter SNOMED: 766819838 Qualifiers: Qualified Codes: T81.31XA - Disruption of external operation (surgical) wound, not elsewhere classified, initial encounter (5) Surgical site infection ICD Codes: T81.49XA - Infection following a procedure, other surgical site, initial encounter SNOMED: 75346209, 302956828 (6) Hidradenitis suppurativa of right axilla ICD Codes: L73.2 - Hidradenitis suppurativa SNOMED: 624428357 (7) Crohns disease ICD Codes: K50.90 - Crohn's disease, unspecified, without complications SNOMED: 32198615 Status: stable Assessment/Plan: 23 year old female with hx of Hidradenitis suppurativa presents with right axillary wound dehiscence, purulent discharge and wound cellulitis, failed outpatient treatment. No evidence of sirs or sepsis currently, although BP is low normal, may be developing sirs/sepsis. No leukocytosis, tachycardia or fever. she is now pod#1 s/p right axillary debridement and flap elevation for recurrence of her hidradenitis suppurative. Hemodynamically stable #R axillary Hidradenitis suppurativa- wound dehiscence and cellulitis with purulent discharge med/surg Dr. Brambila's services and recs appreciated IV antibiotics per ID consult: Daptomycin and cefepime (gm negative and MRSA coverage) f/u OR cultures and sensitivities IV fluids while NPO pain control- seen by pain management consult. follow up recs IV Benadryl for pleuritis Zofran for n/v monitor vitals monitor wbc count- mild increase, likley reactive cultures negative to date, follow up OR cultures #Crohn's- stable. Last Remicade a month ago, gets it every 8 weeks #Depression/Anxiety- stable. Continue home fluoxetine, and Aripiprazole. #vte ppx: Heparin #GI ppx: omeprazole Code status: full code I spent 40 minutes on this encounter. > 50% spent on counselling and care coordination. Case d/w Drs. Brambila and Imani. d/w patient time of this note may not reflect time of encounter Subjective Date patient seen: Dec 28, 2018 ROS Limited/Unobtainable: No Constitutional: Reports: no symptoms, diaphoresis, fever, malaise, other HEENT: Denies: no symptoms, eye pain, blurred vision, tearing, double vision, ear pain, ear discharge, nose pain, nose congestion, throat pain, throat swelling, mouth pain, mouth swelling, other Cardiovascular: Denies: no symptoms, chest pain, edema, irregular heart rate, lightheadedness, palpitations, syncope, other Respiratory: Denies: no symptoms, cough, orthopnea, shortness of breath, SOB with excertion, SOB at rest, sputum, stridor, wheezing, other Gastrointestinal/Abdominal: Reports: no symptoms, abdomen distended, abdominal pain, black stools, tarry stools, blood in stool, constipated, diarrhea, difficulty swallowing, poor appetite, poor fluid intake, rectal bleeding, vomiting, other Genitourinary: Denies: no symptoms, burning, discharge, frequency, flank pain, hematuria, incontinence, pain, urgency, other Neurologic/Psychiatric: Denies: no symptoms, anxiety, depressed, emotional problems, headache, numbness, paresthesia, pre-existing deficit, seizure, tingling, tremors, weakness, other Endocrine: Denies: no symptoms, excessive sweating, flushing, intolerance to cold, intolerance to heat, increased hunger, increased thirst, increased urine, unexplained weight gain, unexplained weight loss, other Hematologic/Lymphatic: Denies: no symptoms, anemia, easy bleeding, easy bruising, other Allergies: Coded Allergies: SILVER (Verified Allergy, Mild, 06/13/18) AZATHIOPRINE (Verified Allergy, Unknown, 05/15/18) DOCUSATE (Verified Allergy, Unknown, 05/15/18) ok for oral LATEX (Verified Allergy, Unknown, 05/15/18) VANCOMYCIN (Verified Allergy, Unknown, 05/15/18) BISACODYL (Verified Adverse Reaction, Severe, Rash, 05/15/18) Uncoded Allergies: IODINE CONTRAST (Allergy, Unknown, 05/15/18) TAPE (Allergy, Unknown, 05/15/18) Subjective seen and examined. POD #1, has chills and body aches, threw up last night. pain 7/10 low grade temp 99.1, bp stable, slight white count Objective Last 24 Hour Vital Signs Date Time Temp Pulse Resp B/P (MAP) Pulse Ox O2 Delivery O2 Flow Rate FiO2 12/28/18 04:00 89 21 100 12/28/18 04:00 98.3 94 18 122/68 (86) 93 12/28/18 00:00 85 18 100 12/28/18 00:00 98.8 85 18 124/65 (84) 100 85 12/27/18 21:00 Room Air 12/27/18 20:05 100 Nasal Cannula 2.0 28 12/27/18 20:00 98.9 78 18 120/87 (98) 98 78 12/27/18 20:00 87 14 100 12/27/18 16:00 97.7 65 20 138/68 (91) 97 12/27/18 16:00 73 12 100 12/27/18 15:30 100 Nasal Cannula 2.0 28 12/27/18 14:40 73 12 122/59 100 Nasal Cannula 3 12/27/18 14:30 16 12/27/18 14:30 98.0 12/27/18 14:30 98.0 12/27/18 14:30 98.0 12/27/18 14:30 98.0 12/27/18 14:25 98.0 68 12 128/56 100 Nasal Cannula 3 12/27/18 14:10 79 15 132/54 100 Nasal Cannula 3 12/27/18 14:00 82 15 110/56 100 Simple Mask 6 12/27/18 13:50 68 12 113/55 100 Simple Mask 6 12/27/18 13:50 72 20 98 12/27/18 13:45 84 13 118/55 100 Simple Mask 6 12/27/18 13:42 97.4 75 12 119/52 100 Simple Mask 6 12/27/18 11:38 98.1 68 20 102/64 (77) 99 12/27/18 09:00 Room Air 12/27/18 08:00 97.6 60 19 101/59 (73) 97 Intake and Output 12/27/18 12/28/18 19:00 07:00 Intake Total 1240 ml Output Total 50 ml Balance 1190 ml Intake Oral 240 ml IV Total 1000 ml Output Estimated Blood Loss 50 ml Laboratory Tests 12/28/18 05:25: White Blood Count 11.6H, Red Blood Count 4.47, Hemoglobin 12.3, Hematocrit 37.8 , Mean Corpuscular Volume 85, Mean Corpuscular Hemoglobin 27.4, Mean Corpuscular Hemoglobin Concent 32.4, Red Cell Distribution Width 13.1, Platelet Count 274, Mean Platelet Volume 5.3L, Neutrophils (%) (Auto) 76.1H, Lymphocytes (%) (Auto) 20.0, Monocytes (%) (Auto) 3.4, Eosinophils (%) (Auto) 0.2, Basophils (%) (Auto) 0.3, Sodium Level 139, Potassium Level 4.3, Chloride Level 106, Carbon Dioxide Level 25, Anion Gap 8, Blood Urea Nitrogen 5L, Creatinine 0.7, Estimat Glomerular Filtration Rate > 60, Glucose Level 103, Calcium Level 8.4L Height (Feet): 5 Height (Inches): 6.00 Weight (Pounds): 188 Objective General Appearance: no apparent distress, alert, non-toxic Head: normocephalic, atraumatic Eyes: bilateral eye normal inspection, bilateral eye PERRL Neck: full range of motion Respiratory: lungs clear, normal breath sounds, speaking full sentences Cardiovascular: regular rate, rhythm, no m/r/g gastrointestinal: obese, soft, healed laparoscopic scars, non tender, non distended Musculoskeletal: decreased range of motion right arm due to pain Genitourinary: healed scars from previous hidradenitis Neurologic: alert, oriented x3, grossly normal Psychiatric: judgement/insight normal Skin: Right axilla dressing: C/D/Isidro Manriquez M.D. Dec 28, 2018 07:46
[2018-12-28 08:00] VITALS: BP 115/69
[2018-12-28] MEDS: Cefepime HCl 2 GM in D5W 55 ML IVPB SCH ×2 (09:13→21:00)
[2018-12-28] MEDS: Heparin 5000 units/ml inj SUBQ SCH ×2 (09:19→21:38)
--- NOTE | 2018-12-28 09:40 | General Progress Note ---
Assessment/Plan Assessment/Plan: (1) Recurrent axillary hidradenitis with active abscess and drainage (2) S/p Radical excision of right axillary tissue (3) Right Axilla pain Patient will be continued on SENIOR IOS DEVELOPER Dilaudid, Dilaudid IV We will discontinue Drummonds and Tramadol. Start Percocet 10/325mg PO 1 tab Q4h PRN severe pian. D/w Dr. Long and he concurred. Subjective Date patient seen: Dec 28, 2018 Time patient seen: 08:45 - am Constitutional: Reports: weakness HEENT: Reports: no symptoms Cardiovascular: Reports: no symptoms Respiratory: Reports: no symptoms Gastrointestinal/Abdominal: Reports: no symptoms Genitourinary: Reports: no symptoms Neurologic/Psychiatric: Reports: no symptoms Endocrine: Reports: no symptoms Hematologic/Lymphatic: Reports: no symptoms Allergies: Coded Allergies: SILVER (Verified Allergy, Mild, 06/13/18) AZATHIOPRINE (Verified Allergy, Unknown, 05/15/18) DOCUSATE (Verified Allergy, Unknown, 05/15/18) ok for oral LATEX (Verified Allergy, Unknown, 05/15/18) VANCOMYCIN (Verified Allergy, Unknown, 05/15/18) BISACODYL (Verified Adverse Reaction, Severe, Rash, 05/15/18) Uncoded Allergies: IODINE CONTRAST (Allergy, Unknown, 05/15/18) TAPE (Allergy, Unknown, 05/15/18) Subjective Patient is a known patient admitted for Recurrent axillary hidradenitis with active abscess and drainage s/p Radical excision of right axillary tissue. She was started on SENIOR IOS DEVELOPER Dilaudid 0.2mg Q6min using 3.8mg in the last 24hrs, Dilaudid 1mg IV Q6HPRN, Drummonds 10/325mg PO 1 tab Q4h PRN and Tramadol 50mg. She has 6/10 pain at this time. D/w her about stopping the Drummonds and Tramadol and starting Percocet 10/325mg PO 1 tab Q4H PRN severe pain and she seems to understand. No new complaints at this time. Objective Last 24 Hour Vital Signs Date Time Temp Pulse Resp B/P (MAP) Pulse Ox O2 Delivery O2 Flow Rate FiO2 12/28/18 08:00 98 19 95 12/28/18 08:00 99.1 98 19 115/69 (84) 95 12/28/18 04:00 89 21 100 12/28/18 04:00 98.3 94 18 122/68 (86) 93 12/28/18 00:00 85 18 100 12/28/18 00:00 98.8 85 18 124/65 (84) 100 85 12/27/18 21:00 Room Air 12/27/18 20:05 100 Nasal Cannula 2.0 28 12/27/18 20:00 98.9 78 18 120/87 (98) 98 78 12/27/18 20:00 87 14 100 12/27/18 16:00 97.7 65 20 138/68 (91) 97 12/27/18 16:00 73 12 100 12/27/18 15:30 100 Nasal Cannula 2.0 28 12/27/18 14:40 73 12 122/59 100 Nasal Cannula 3 12/27/18 14:30 16 12/27/18 14:30 98.0 12/27/18 14:30 98.0 12/27/18 14:30 98.0 12/27/18 14:30 98.0 12/27/18 14:25 98.0 68 12 128/56 100 Nasal Cannula 3 12/27/18 14:10 79 15 132/54 100 Nasal Cannula 3 12/27/18 14:00 82 15 110/56 100 Simple Mask 6 12/27/18 13:50 68 12 113/55 100 Simple Mask 6 12/27/18 13:50 72 20 98 12/27/18 13:45 84 13 118/55 100 Simple Mask 6 12/27/18 13:42 97.4 75 12 119/52 100 Simple Mask 6 12/27/18 11:38 98.1 68 20 102/64 (77) 99 Intake and Output 12/27/18 12/28/18 18:59 06:59 Intake Total 1340 ml Output Total 50 ml Balance 1290 ml Intake Oral 240 ml IV Total 1100 ml Output Estimated Blood Loss 50 ml Laboratory Tests 12/28/18 05:25: White Blood Count 11.6H, Red Blood Count 4.47, Hemoglobin 12.3, Hematocrit 37.8 , Mean Corpuscular Volume 85, Mean Corpuscular Hemoglobin 27.4, Mean Corpuscular Hemoglobin Concent 32.4, Red Cell Distribution Width 13.1, Platelet Count 274, Mean Platelet Volume 5.3L, Neutrophils (%) (Auto) 76.1H, Lymphocytes (%) (Auto) 20.0, Monocytes (%) (Auto) 3.4, Eosinophils (%) (Auto) 0.2, Basophils (%) (Auto) 0.3, Sodium Level 139, Potassium Level 4.3, Chloride Level 106, Carbon Dioxide Level 25, Anion Gap 8, Blood Urea Nitrogen 5L, Creatinine 0.7, Estimat Glomerular Filtration Rate > 60, Glucose Level 103, Calcium Level 8.4L Height (Feet): 5 Height (Inches): 6.00 Weight (Pounds): 188 General Appearance: no apparent distress, alert EENT: PERRL/EOMI, normal ENT inspection Neck: non-tender, normal alignment Cardiovascular: normal rate, regular rhythm Respiratory/Chest: lungs clear, normal breath sounds Abdomen: non tender, soft Extremities: other - right axilla bandages noted Edema: trace edema Neurologic: alert, oriented x 3 Skin: normal pigmentation Hao Aldana Dec 28, 2018 09:40
[2018-12-28] MEDS: DiphenhydrAMINE 50mg/ml Inj IVP PRN ×2 (10:59→18:05)
--- NOTE | 2018-12-28 11:11 | General Progress Note ---
Progress Note Progress Note Pt seen and examined. POD#1. Stable and pain controlled. Dressings CDI Pain medicine team seeing patient. Continue IV abx. Plan on definitive flap closure on Monday. Sagar Campbell MD, MD Dec 28, 2018 11:10
[2018-12-28 12:00] VITALS: BP 112/64
[2018-12-28] MEDS ORDERED: DiphenhydrAMINE 50mg/ml Inj IVP SCH (13:00)
--- NOTE | 2018-12-28 13:00 | 48 Hour Post Anesthesia Eval ---
Post Anesthesia Evaluation Procedure: Excision of R axillary HS Date of Evaluation: Dec 28, 2018 Time of Evaluation: 12:59 Blood Pressure Systolic: 116 0: 74 Pulse Rate: 78 Respiratory Rate: 20 Temperature (Fahrenheit): 97.2 O2 Sat by Pulse Oximetry: 98 Airway: patent Nausea: No Vomiting: No Pain Intensity: 3 Hydration Status: adequate Cardiopulmonary Status: stable Mental Status/LOC: patient returned to baseline Follow-up Care/Observations: n/a Post-Anesthesia Complications: none Follow-up care needed: N/A Baudilio Garnett MD Dec 28, 2018 13:00
--- NOTE | 2018-12-28 15:11 | NUR ---
CASE MANAGEMENT:REVIEW 12/28/18 SI: POD #1 S/P RT AXILLARY DEBRIDEMENT AND FLAP ELEVATION 98.7 97 18 112/64 96% ON RA WBC+11.6 IS: IV DAPTOMYCIN Q24HRS IV CEFEPIME Q12 EDUCATION FINANCE PROCESSOR DILAUDID : TO MED/SURG 3 [facility] DCP: HOME ~ [place]
[2018-12-28] MEDS ORDERED: Naloxone 0.4mg/ml Inj IV PRN (15:24)
[2018-12-28] MEDS ORDERED: Rate Change PCA 1 Each MISC PRN (15:30)
[2018-12-28] MEDS ORDERED: PCA HYDROmorphone 1mg/ml 30 ML IV PRN (15:30)
[2018-12-28 16:00] VITALS: BP 116/70
--- NOTE | 2018-12-28 16:32 | NUR ---
DISCHARGE PLANNING REFERRED PATIENT TO HOME [facility] T: [phone] F: [phone]
[2018-12-28] MEDS: DAPTOmycin 500 MG in NS 50 ML IV SCH ×2 (18:00→18:05)
--- NOTE | 2018-12-28 18:00 | NUR ---
NURSE NOTES: Patient refused IV antibiotic. Dr. Diallo made aware, patient aware of risks and benefits.
--- NOTE | 2018-12-28 19:00 | NUR ---
NURSE NOTES: Patient refused to ambulate today d/t pain and itching discomfort. SCD on bilateral lower legs. Patient is aware of risks and benefits of walking.
--- NOTE | 2018-12-28 19:30 | NUR ---
NURSE NOTES: Receive a report from Louise/Shwetha Delaney. Round is done. Pt is awake and alert. No acute respiratory distress noted. Right axilla op site kept dry and clean without oozing. On CLASSIFIER TENDER-Dilaudid with checking eCO2. Pain is 6/10. Encourage I/S q1hr while awake. Call light within reach. Will continue to monitor.
--- NOTE | 2018-12-28 19:30 | NUR ---
HAND-OFF: Report given to Danyao RN. Patient is stable.
[2018-12-28 20:00] VITALS: BP 116/71
--- NOTE | 2018-12-28 20:30 | NUR ---
NURSE NOTES: Complains for itching. Prn Benadryl already given. Explain for medication schedule. Pt refuses to get antibiotics. MD aware. Reapply ice bags and not to scratch with fingernails. Pt verbalizes understanding. Will continue to monitor.
--- NOTE | 2018-12-28 21:30 | NUR ---
NURSE NOTES: Still noted itching but verbalizes that applying ice bags help. A visitor is at bedside talking each other. Will continue to monitor.
[2018-12-29] VITALS: BP 121/71
--- NOTE | 2018-12-29 | NUR ---
NURSE NOTES: After using restroom, pt feels leaking from dressing site. Wet gauze fell from armpit while lifting right arm. Reinforce dry gauze. On OILSEED MEAT PRESSER for pain control. No acute respiratory or distress. Will continue to monitor.
[2018-12-29] MEDS: DiphenhydrAMINE 50mg/ml Inj IVP PRN ×4 (00:12→20:19)
--- NOTE | 2018-12-29 01:30 | NUR ---
NURSE NOTES: On ambulating in the hallway. Provide fall precautions. Will continue to monitor.
[2018-12-29] MEDS: Zolpidem 5mg tab ORAL PRN ×2 (02:31→23:58)
[2018-12-29 04:00] VITALS: BP 115/65
--- NOTE | 2018-12-29 05:40 | NUR ---
NURSE NOTES: Pt had vomiting on the floor. Given Zofran as ordered. Will continue to monitor.
[2018-12-29 06:14] LABS: BASOPHILS % (AUTO) 0.9 % (0.0-2.0); EOSINOPHILS % (AUTO) 1.3 % (0.0-3.0); HEMATOCRIT 37.2 % (37.0-47.0); LYMPHOCYTES % (AUTO) 33.6 % (20.0-45.0); MEAN CORPUSCULAR VOLUME 85 FL (80-99); NEUTROPHILS % (AUTO) 59.1 % (45.0-75.0); PLATELET COUNT 166 K/UL (150-450); RED CELL DISTRIBUTION WIDTH 13.1 % (11.6-14.8); WHITE BLOOD COUNT 7.9 K/UL (4.8-10.8)
[2018-12-29 07:26] LABS: ALANINE AMINOTRANSFERASE 33 U/L (12-78); ALBUMIN 3.1 G/DL (3.4-5.0); ALBUMIN/GLOBULIN RATIO 0.7 (1.0-2.7); ALKALINE PHOSPHATASE 68 U/L (46-116); ANION GAP 8 mmol/L (5-15); ASPARTATE AMINO TRANSFERASE 28 U/L (15-37); BILIRUBIN,TOTAL 0.3 MG/DL (0.2-1.0); BLOOD UREA NITROGEN 3 mg/dL (7-18); CALCIUM 8.2 MG/DL (8.5-10.1); CARBON DIOXIDE 27 MMOL/L (21-32); CHLORIDE 107 MMOL/L (98-107); CREATININE 0.8 MG/DL (0.55-1.30); POTASSIUM 3.7 MMOL/L (3.5-5.1); SODIUM 142 MMOL/L (136-145)
[2018-12-29] MEDS: PCA shift volume MISC SCH ×2 (07:27→19:00)
--- NOTE | 2018-12-29 07:30 | NUR ---
HAND-OFF: Report given to LIA Gil. Round is done.
--- NOTE | 2018-12-29 07:30 | NUR ---
NURSE NOTES: Patient is in bed asleep. Stable. No visible signs of distress noted. Breathing is even and unlabored. Patient is in bed in locked and lowest position with call light within reach. PICC patent and running IVF and DEPARTMENT SUPERVISOR. All safety measures provided. Will continue to monitor.
[2018-12-29 08:00] VITALS: BP 102/59
[2018-12-29] MEDS: Cefepime HCl 2 GM in D5W 55 ML IVPB SCH ×3 (09:00→20:23)
[2018-12-29] MEDS: Heparin 5000 units/ml inj SUBQ SCH ×2 (09:17→20:22)
--- NOTE | 2018-12-29 11:42 | General Progress Note ---
Assessment/Plan Status: stable Assessment/Plan: Assessment/Plan Problem List: (1) Depression ICD Codes: F32.9 - Major depressive disorder, single episode, unspecified SNOMED: 27238653 (2) Anxiety ICD Codes: F41.9 - Anxiety disorder, unspecified SNOMED: 66398532 (3) Wound cellulitis ICD Codes: L03.90 - Cellulitis, unspecified SNOMED: 287862390 (4) Wound dehiscence, surgical ICD Codes: T81.31XA - Disruption of external operation (surgical) wound, not elsewhere classified, initial encounter SNOMED: 806629434 Qualifiers: Qualified Codes: T81.31XA - Disruption of external operation (surgical) wound, not elsewhere classified, initial encounter (5) Surgical site infection ICD Codes: T81.49XA - Infection following a procedure, other surgical site, initial encounter SNOMED: 42291367, 488189578 (6) Hidradenitis suppurativa of right axilla ICD Codes: L73.2 - Hidradenitis suppurativa SNOMED: 652724755 (7) Crohns disease ICD Codes: K50.90 - Crohn's disease, unspecified, without complications SNOMED: 99158850 Status: stable Assessment/Plan: 23 year old female with hx of Hidradenitis suppurativa presents with right axillary wound dehiscence, purulent discharge and wound cellulitis, failed outpatient treatment. No evidence of sirs or sepsis currently, although BP is low normal, may be developing sirs/sepsis. No leukocytosis, tachycardia or fever. she is now pod#2 s/p right axillary debridement and flap elevation for recurrence of her hidradenitis suppurative. Hemodynamically stable and new onset of emesis this morning. #R axillary Hidradenitis suppurativa- wound dehiscence and cellulitis with purulent discharge med/surg Dr. Brambila's services and recs appreciated IV antibiotics per ID consult: Daptomycin and cefepime (gm negative and MRSA coverage) f/u OR cultures and sensitivities IV fluids pain control- seen by pain management consult. follow up recs - UX ARCHITECT with Dilaudid. IV Benadryl for pruritus will be adjusted to 25 mg q 4 hr PRN due to short lasting effect per patient report. Reportedly by RN the patient had 50 mg before and was difficult to wake up. Avoid 50 mg for now. Zofran- reglan - phenergan PRN for n/v monitor vitals monitor wbc count- mild increase, likley reactive is resolved. cultures negative to date, follow up OR cultures #Crohn's- stable. Last Remicade a month ago, gets it every 8 weeks and her symptoms are usually constipation only. IF PERSISTENT nausea or emesis would consult GI service. Not clinically indicated today. #Depression/Anxiety- stable. Continue home fluoxetine, and Aripiprazole. #vte ppx: Heparin #GI ppx: omeprazole Code status: full code I spent 40 minutes on this encounter. > 50% spent on counselling and care coordination. Case d/w Drs. Brambila and RN d/w patient time of this note may not reflect time of encounter Subjective Date patient seen: Dec 29, 2018 Time patient seen: 11:15 ROS Limited/Unobtainable: No Gastrointestinal/Abdominal: Reports: nausea, vomiting Allergies: Coded Allergies: SILVER (Verified Allergy, Mild, 06/13/18) AZATHIOPRINE (Verified Allergy, Unknown, 05/15/18) DOCUSATE (Verified Allergy, Unknown, 05/15/18) ok for oral LATEX (Verified Allergy, Unknown, 05/15/18) VANCOMYCIN (Verified Allergy, Unknown, 05/15/18) BISACODYL (Verified Adverse Reaction, Severe, Rash, 05/15/18) Uncoded Allergies: IODINE CONTRAST (Allergy, Unknown, 05/15/18) TAPE (Allergy, Unknown, 05/15/18) Objective Last 24 Hour Vital Signs Date Time Temp Pulse Resp B/P (MAP) Pulse Ox O2 Delivery O2 Flow Rate FiO2 12/29/18 10:48 98 Nasal Cannula 2.0 28 12/29/18 09:00 Room Air 12/29/18 08:00 91 18 98 12/29/18 08:00 98.0 91 18 102/59 (73) 98 12/29/18 04:00 97.5 97 16 115/65 (82) 95 12/29/18 04:00 97 16 95 12/29/18 00:00 98.7 107 18 121/71 (88) 98 12/29/18 00:00 107 18 95 12/28/18 21:00 Room Air 12/28/18 20:00 98.5 98 18 116/71 (86) 98 12/28/18 20:00 98 18 95 12/28/18 18:50 99 Nasal Cannula 2.0 28 12/28/18 16:00 98.2 100 19 116/70 (85) 96 12/28/18 16:00 100 19 96 12/28/18 13:00 78 20 98 12/28/18 12:00 97 18 96 12/28/18 12:00 98.7 97 18 112/64 (80) 96 Intake and Output 12/28/18 12/29/18 18:59 06:59 Intake Total 1400 ml 1100 ml Balance 1400 ml 1100 ml Intake Oral 800 ml IV Total 600 ml 1100 ml Laboratory Tests 12/29/18 05:40: White Blood Count 7.9, Red Blood Count 4.40, Hemoglobin 12.0, Hematocrit 37.2, Mean Corpuscular Volume 85, Mean Corpuscular Hemoglobin 27.3, Mean Corpuscular Hemoglobin Concent 32.2, Red Cell Distribution Width 13.1, Platelet Count 166, Mean Platelet Volume 4.9L, Neutrophils (%) (Auto) 59.1, Lymphocytes (%) (Auto) 33.6, Monocytes (%) (Auto) 5.0, Eosinophils (%) (Auto) 1.3, Basophils (%) (Auto ) 0.9 12/29/18 06:50: Sodium Level 142, Potassium Level 3.7, Chloride Level 107, Carbon Dioxide Level 27, Anion Gap 8, Blood Urea Nitrogen 3L, Creatinine 0.8, Estimat Glomerular Filtration Rate > 60, Glucose Level 109H, Calcium Level 8.2L, Total Bilirubin 0.3, Aspartate Amino Transf (AST/SGOT) 28, Alanine Aminotransferase (ALT/SGPT) 33, Alkaline Phosphatase 68, Total Protein 7.3, Albumin 3.1L, Globulin 4.2, Albumin/Globulin Ratio 0.7L Height (Feet): 5 Height (Inches): 6.00 Weight (Pounds): 188 General Appearance: WD/WN EENT: PERRL/EOMI Neck: non-tender Cardiovascular: normal peripheral pulses, normal rate Respiratory/Chest: chest wall non-tender, lungs clear, normal breath sounds, no respiratory distress, no accessory muscle use Abdomen: normal bowel sounds, non tender, soft, no mass Extremities: normal range of motion Neurologic: duck bill operator II-XII grossly normal Aida Looney MD Dec 29, 2018 11:42
[2018-12-29 12:00] VITALS: BP 101/62
[2018-12-29] MEDS ORDERED: DiphenhydrAMINE 50mg/ml Inj IVP PRN (12:00)
--- NOTE | 2018-12-29 13:00 | NUR ---
NURSE NOTES: Patient complains of severe itching and is continually asking for benadryl. Skin is clean, dry, and intact. No rashes, fever, or allergic reactions noted. Dr. Looney aware. New benadryl orders noted and carried out.
--- NOTE | 2018-12-29 15:37 | Cardiology Report ---
APPROVED REPORT EKG Measurement Heart [id number] MN [id number] Sinus bradycardia with sinus arrhythmia with short MN Otherwise normal ECG
--- NOTE | 2018-12-29 15:54 | Infectious Diseases Prog Note ---
Assessment/Plan Assessment/Plan ASSESSMENT AND PLAN: 1. right axilla wound infection/abscess/cellulitis, mild leukocytosis, hidradenitis suppurativa - s/p debridement - daptomycin and cefepime - monitor labs 2. Depression. 3. Anxiety. 4. Crohn's disease. 5. History of colectomy. On Remicade. 6. Hidradenitis suppurativa. 7. History of colectomy. 8. Allergies to azathioprine, bisacodyl, docusate, iodine, vancomycin, latex, and silver tape. 9. Family history is positive for depression, anxiety, and Crohn's. 10. Social history is negative. 11. MAR was noted. 12. Case was discussed with RN. 13. Case was discussed with Dr. Johnson. 14. Continue treatment per primary consultants. Subjective Constitutional: Denies: fever HEENT: Denies: congestion Respiratory: Denies: shortness of breath Cardiovascular: Denies: chest pain Gastrointestinal/Abdominal: Denies: nausea, vomiting, diarrhea Genitourinary: Denies: dysuria, hematuria Neurologic: Denies: headache Psychiatric: Denies: depression Skin: Denies: rash Hematologic: Denies: bleeding Musculoskeletal: Denies: pain Allergies: Coded Allergies: SILVER (Verified Allergy, Mild, 06/13/18) AZATHIOPRINE (Verified Allergy, Unknown, 05/15/18) DOCUSATE (Verified Allergy, Unknown, 05/15/18) ok for oral LATEX (Verified Allergy, Unknown, 05/15/18) VANCOMYCIN (Verified Allergy, Unknown, 05/15/18) BISACODYL (Verified Adverse Reaction, Severe, Rash, 05/15/18) Uncoded Allergies: IODINE CONTRAST (Allergy, Unknown, 05/15/18) TAPE (Allergy, Unknown, 05/15/18) Objective Vital Signs Last 24 Hour Vital Signs Date Time Temp Pulse Resp B/P (MAP) Pulse Ox O2 Delivery O2 Flow Rate FiO2 12/29/18 10:48 98 Nasal Cannula 2.0 28 12/29/18 09:00 Room Air 12/29/18 08:00 91 18 98 12/29/18 08:00 98.0 91 18 102/59 (73) 98 12/29/18 04:00 97.5 97 16 115/65 (82) 95 12/29/18 04:00 97 16 95 12/29/18 00:00 98.7 107 18 121/71 (88) 98 12/29/18 00:00 107 18 95 12/28/18 21:00 Room Air 12/28/18 20:00 98.5 98 18 116/71 (86) 98 12/28/18 20:00 98 18 95 12/28/18 18:50 99 Nasal Cannula 2.0 28 12/28/18 16:00 98.2 100 19 116/70 (85) 96 12/28/18 16:00 100 19 96 Height (Feet): 5 Height (Inches): 6.00 Weight (Pounds): 188 General Appearance: no acute distress HEENT: normocephalic, atraumatic, anicteric, mucous membranes moist Respiratory/Chest: lungs clear, normal breath sounds, no respiratory distress, no accessory muscle use Cardiovascular: normal rate, regular rhythm, no gallop/murmur, no JVD Abdomen: normal bowel sounds, soft, non tender, no organomegaly, non distended Genitourinary: other - no santana Extremities: no cyanosis Skin: no rash Neurologic/Psychiatric: rn paralegal II-XII grossly normal, alert, responsive Lymphatic: no neck adenopathy Musculoskeletal: no effusion Objective none Microbiology Date/Time Source Procedure Growth Status 12/26/18 19:50 Blood Blood Culture - Preliminary NO GROWTH AFTER 48 HOURS Resulted 12/26/18 19:35 Blood Blood Culture - Preliminary NO GROWTH AFTER 48 HOURS Resulted Laboratory Tests Test 12/29/18 05:40 12/29/18 06:50 White Blood Count 7.9 K/UL (4.8-10.8) Red Blood Count 4.40 M/UL (4.20-5.40) Hemoglobin 12.0 G/DL (12.0-16.0) Hematocrit 37.2 % (37.0-47.0) Mean Corpuscular Volume 85 FL (80-99) Mean Corpuscular Hemoglobin 27.3 PG (27.0-31.0) Mean Corpuscular Hemoglobin Concent 32.2 G/DL (32.0-36.0) Red Cell Distribution Width 13.1 % (11.6-14.8) Platelet Count 166 K/UL (150-450) Mean Platelet Volume 4.9 FL (6.5-10.1) L Neutrophils (%) (Auto) 59.1 % (45.0-75.0) Lymphocytes (%) (Auto) 33.6 % (20.0-45.0) Monocytes (%) (Auto) 5.0 % (1.0-10.0) Eosinophils (%) (Auto) 1.3 % (0.0-3.0) Basophils (%) (Auto) 0.9 % (0.0-2.0) Sodium Level 142 MMOL/L (136-145) Potassium Level 3.7 MMOL/L (3.5-5.1) Chloride Level 107 MMOL/L (98-107) Carbon Dioxide Level 27 MMOL/L (21-32) Anion Gap 8 mmol/L (5-15) Blood Urea Nitrogen 3 mg/dL (7-18) L Creatinine 0.8 MG/DL (0.55-1.30) Estimat Glomerular Filtration Rate > 60 mL/min (>60) Glucose Level 109 MG/DL (74-106) H Calcium Level 8.2 MG/DL (8.5-10.1) L Total Bilirubin 0.3 MG/DL (0.2-1.0) Aspartate Amino Transf (AST/SGOT) 28 U/L (15-37) Alanine Aminotransferase (ALT/SGPT) 33 U/L (12-78) Alkaline Phosphatase 68 U/L (46-116) Total Protein 7.3 G/DL (6.4-8.2) Albumin 3.1 G/DL (3.4-5.0) L Globulin 4.2 g/dL Albumin/Globulin Ratio 0.7 (1.0-2.7) L Current Medications Medications (Trade) Dose Ordered Sig/Alix Route PRN Reason Start Time Stop Time Status Last Admin Dose Admin Acetaminophen (Tylenol) 650 mg Q4H PRN ORAL Mild Pain (Pain Scale 1-3) 12/26/18 20:15 01/25/19 20:14 Acetaminophen (Tylenol) 650 mg Q4H PRN ORAL FEVER (temp>100.5F) 12/27/18 13:45 01/26/19 13:44 Acetaminophen (Tylenol) 650 mg Q4H PRN RECTAL Mild Pain (Pain Scale 1-3) 12/26/18 20:15 01/25/19 20:14 Acetaminophen (Tylenol) 650 mg Q4H PRN RECTAL fever 12/26/18 20:15 01/25/19 20:14 Al Hydroxide/Mg Hydroxide (Mylanta II) 30 ml Q6H PRN ORAL dyspepsia 12/26/18 20:15 01/25/19 20:14 Albuterol/ Ipratropium (Albuterol/ Ipratropium) 3 ml Q4H PRN HHN Shortness of Breath 12/26/18 20:15 12/31/18 20:14 Aripiprazole (Abilify) 2.5 mg DAILY ORAL 12/27/18 09:00 01/26/19 08:59 12/29/18 09:16 Cefepime HCl 2 gm/ Dextrose 55 ml @ 110 mls/hr EVERY 12 HOURS IVPB 12/27/18 21:00 01/03/19 20:59 12/28/18 09:13 Daptomycin 500 mg/ Sodium Chloride 50 ml @ 100 mls/hr Q24H IV 12/27/18 18:00 01/03/19 17:59 12/27/18 18:17 Dextrose (Dextrose 50%) 25 ml Q30M PRN IV Hypoglycemia 12/26/18 20:15 01/25/19 20:14 Dextrose (Dextrose 50%) 50 ml Q30M PRN IV Hypoglycemia 12/26/18 20:15 01/25/19 20:14 Diphenhydramine HCl (Benadryl) 25 mg Q4H PRN IVP Itching 12/29/18 11:45 01/28/19 11:44 Fluoxetine HCl (PROzac) 40 mg DAILY ORAL 12/27/18 09:00 01/26/19 08:59 12/29/18 09:16 Heparin Sodium (Porcine) (Heparin 5000 units/ml) 5,000 units EVERY 12 HOURS SUBQ 12/27/18 21:00 01/26/19 20:59 12/29/18 09:17 Hydromorphone HCl 30 ml @ 0 mls/hr Q24H PRN IV For Pain 12/28/18 15:30 12/30/18 15:29 Hydromorphone HCl (Dilaudid) 1 mg Q6H PRN IVP Breakthrough Pain 12/28/18 15:30 01/04/19 15:29 Lorazepam (Ativan 2mg/ml 1ml) 0.5 mg Q4H PRN IV For Anxiety 12/26/18 20:15 01/02/19 20:14 Lorazepam (Ativan) 1 mg Q4H PRN ORAL For Anxiety 12/26/18 20:15 01/02/19 20:14 Magnesium Hydroxide (Mom) 30 ml HSPRN PRN ORAL Constipation 12/26/18 20:15 01/25/19 20:14 Methocarbamol (Robaxin) 500 mg Q4H PRN ORAL spasms 12/26/18 20:15 01/25/19 20:14 Metoclopramide HCl (Reglan) 10 mg Q6H PRN IVP Nausea & Vomiting 12/26/18 20:15 01/25/19 20:14 12/28/18 03:43 Miscellaneous Medication (RETAIL SALES DIRECTOR Rate Change) 1 ea DAILY PRN MISC rate change 12/28/18 15:30 12/30/18 15:29 Miscellaneous Medication (RETAIL SALES DIRECTOR shift volume) 1 ea Q12HR@0700,1900 MISC 12/28/18 19:00 12/30/18 18:59 12/29/18 07:27 Naloxone HCl (Narcan) 0.1 mg Q1M PRN IV RR<10/min OR SBP<90 mmHg 12/28/18 15:24 12/30/18 15:22 Nitroglycerin (Ntg) 0.4 mg Q5M X 3 DOSES PRN SL Prn Chest Pain 12/26/18 20:15 01/25/19 20:14 Ondansetron HCl (Zofran) 4 mg Q6H PRN IVP Nausea & Vomiting 12/27/18 13:45 01/26/19 13:44 12/29/18 05:39 Oxycodone/ Acetaminophen (Percocet 10/325) 1 tab Q4H PRN ORAL Severe Pain (Pain Scale 7-10) 12/28/18 15:30 01/04/19 15:29 12/28/18 22:56 Pantoprazole (Protonix) 40 mg DAILY ORAL 12/27/18 09:00 01/26/19 08:59 12/29/18 09:15 Polyethylene Glycol (Miralax) 17 gm HSPRN PRN ORAL Constipation 12/26/18 20:15 01/25/19 20:14 Prochlorperazine (Compazine) 10 mg Q6H PRN IVP Nausea & Vomiting 12/26/18 20:15 01/25/19 20:14 12/29/18 10:42 Sodium Chloride 1,000 ml @ 100 mls/hr Q10H IVLG 12/26/18 21:05 01/25/19 21:04 12/29/18 07:33 Temazepam (Restoril) 7.5 mg HSPRN PRN ORAL Insomnia 12/27/18 15:30 01/03/19 13:44 Zolpidem Tartrate (Ambien) 5 mg HSPRN PRN ORAL Insomnia 12/27/18 13:45 01/03/19 13:44 12/29/18 02:31 Niya Holley MD Dec 29, 2018 15:54
[2018-12-29 16:00] VITALS: BP 101/58
--- NOTE | 2018-12-29 17:00 | NUR ---
NURSE NOTES: Patient ambulating with IV pole and nonskid socks. All safety measures provided.
[2018-12-29] MEDS: HYDROmorphone 1mg/ml Carpuject IVP PRN (17:16)
--- NOTE | 2018-12-29 17:30 | NUR ---
NURSE NOTES: GUEST ROOM ATTENDANT syringe and tubing wasted with pharmacist.
[2018-12-29] MEDS: DAPTOmycin 500 MG in NS 50 ML IV SCH (18:02)
--- NOTE | 2018-12-29 18:19 | NUR ---
CASE MANAGEMENT:REVIEW 12/29/18 SI: POD #2 S/P RT AXILLARY DEBRIDEMENT AND FLAP ELEVATION T 99.3 HR 88 RR 18 B/P 101/58 SATS 100% ON 2L/NC BUN 3 GLU 109 CA 8.2 IS: IV DAPTOMYCIN Q24HRS IV CEFEPIME Q12 MANAGER E LEARNING DILAUDID : TO MED/SURG 3 EAST DCP: HOME ~ ORANGE
--- NOTE | 2018-12-29 19:30 | NUR ---
HAND-OFF: Report given to Janina FITZGERALD. Patient is stable.
--- NOTE | 2018-12-29 19:56 | NUR ---
NURSE NOTES: Pt received in bed awake, alert, able to make needs known, call light within reach, STONE LAYER pump, IV fluids running, no c/o pain at the moment just itching. Head of bed elevated, will continue to monitor, rt axilla dressing changed.
[2018-12-29 20:00] VITALS: BP 101/61
[2018-12-29] MEDS ORDERED: DiphenhydrAMINE 50mg/ml Inj IVP SCH (21:45)
--- NOTE | 2018-12-29 21:47 | NUR ---
NURSE NOTES: Pt c/o itching after receiving 25mg of benadryl, contacted MD Looney order 25mg benadryl one time dose and new order benadryl 50mg q6hrs PRN
[2018-12-30] VITALS: BP 117/68
[2018-12-30] MEDS: HYDROmorphone 1mg/ml Carpuject IVP PRN ×2 (02:08→09:54)
[2018-12-30 04:00] VITALS: BP 117/79
[2018-12-30] MEDS: DiphenhydrAMINE 50mg/ml Inj IVP PRN ×3 (04:49→22:41)
[2018-12-30] MEDS: PCA shift volume MISC SCH ×2 (07:00→19:00)
--- NOTE | 2018-12-30 07:30 | NUR ---
HAND-OFF: Report given to LIA Reyes.
--- NOTE | 2018-12-30 07:42 | NUR ---
HAND-OFF: Report given to LIA Reyes.
[2018-12-30 08:00] VITALS: BP 118/71
--- NOTE | 2018-12-30 08:00 | NUR ---
NURSE NOTES: Received report from Janina FITZGERALD. Patient is awake and oriented, no acute distress noted, reporting pain in right axilla rated 7/10, patient is using AUTOMOBILES SALESPERSON, settings checked and verified against order, Right axilla dressing dry and intact. Left hand IV patent, running NS per order. Patients needs met at this time, will medicate per pain as ordered. Side rails upx2, bed low and locked, call light within reach.
[2018-12-30 08:31] LABS: BASOPHILS % (AUTO) 0.7 % (0.0-2.0); EOSINOPHILS % (AUTO) 4.1 % (0.0-3.0); HEMATOCRIT 30.9 % (37.0-47.0); LYMPHOCYTES % (AUTO) 45.2 % (20.0-45.0); MEAN CORPUSCULAR VOLUME 83 FL (80-99); MONOCYTES % (AUTO) 8.6 % (1.0-10.0); NEUTROPHILS % (AUTO) 41.3 % (45.0-75.0); PLATELET COUNT 227 K/UL (150-450); RED BLOOD COUNT 3.71 M/UL (4.20-5.40); RED CELL DISTRIBUTION WIDTH 13.2 % (11.6-14.8); WHITE BLOOD COUNT 8.1 K/UL (4.8-10.8)
[2018-12-30 08:44] LABS: ANION GAP 5 mmol/L (5-15); BLOOD UREA NITROGEN 7 mg/dL (7-18); CALCIUM 7.8 MG/DL (8.5-10.1); CARBON DIOXIDE 29 MMOL/L (21-32); CHLORIDE 109 MMOL/L (98-107); CREATININE 0.7 MG/DL (0.55-1.30); PHOSPHORUS 3.7 MG/DL (2.5-4.9); POTASSIUM 3.5 MMOL/L (3.5-5.1); SODIUM 143 MMOL/L (136-145)
[2018-12-30 08:45] LABS: CREATINE KINASE 41 U/L (26-308)
[2018-12-30] MEDS: Cefepime HCl 2 GM in D5W 55 ML IVPB SCH ×2 (08:46→22:40)
[2018-12-30] MEDS: Heparin 5000 units/ml inj SUBQ SCH ×2 (08:48→22:41)
--- NOTE | 2018-12-30 10:10 | General Progress Note ---
Progress Note Progress Note Pt seen and examined. POD# 3 and doing well. Dressings removed and flap is viable. No infection present. Plan for OR tomorrow for flap closure. NPO after MN and consent. Sagar Campbell MD, MD Dec 30, 2018 10:10
--- NOTE | 2018-12-30 10:11 | NUR ---
NURSE NOTES: Patient seen by Dr. Brambila. Packing removed from right axillary wound. MD ordered to let patient shower and pack right axillary wound and cover with dry dressing. Order read back and entered. Will carry out.
[2018-12-30] MEDS ORDERED: Naloxone 0.4mg/ml Inj IV PRN (10:22)
[2018-12-30] MEDS ORDERED: Rate Change PCA 1 Each MISC PRN (10:30)
--- NOTE | 2018-12-30 11:53 | NUR ---
NURSE NOTES: Informed Dr. Looney patient's Mag is low (1.5), per MD orders will be placed for replacement. MD also ordered to start patient on a scheduled miralax daily. Order read back and entered.
[2018-12-30 12:00] VITALS: BP 136/70
--- NOTE | 2018-12-30 12:33 | General Progress Note ---
Assessment/Plan Status: stable Assessment/Plan: Assessment/Plan Problem List: (1) Depression ICD Codes: F32.9 - Major depressive disorder, single episode, unspecified SNOMED: 12303211 (2) Anxiety ICD Codes: F41.9 - Anxiety disorder, unspecified SNOMED: 71511363 (3) Wound cellulitis ICD Codes: L03.90 - Cellulitis, unspecified SNOMED: 853155576 (4) Wound dehiscence, surgical ICD Codes: T81.31XA - Disruption of external operation (surgical) wound, not elsewhere classified, initial encounter SNOMED: 004421567 Qualifiers: Qualified Codes: T81.31XA - Disruption of external operation (surgical) wound, not elsewhere classified, initial encounter (5) Surgical site infection ICD Codes: T81.49XA - Infection following a procedure, other surgical site, initial encounter SNOMED: 00770575, 996917988 (6) Hidradenitis suppurativa of right axilla ICD Codes: L73.2 - Hidradenitis suppurativa SNOMED: 156470845 (7) Crohns disease ICD Codes: K50.90 - Crohn's disease, unspecified, without complications SNOMED: 34391613 Status: stable Assessment/Plan: 23 year old female with hx of Hidradenitis suppurativa presents with right axillary wound dehiscence, purulent discharge and wound cellulitis, failed outpatient treatment. No evidence of sirs or sepsis currently, although BP is low normal, may be developing sirs/sepsis. No leukocytosis, tachycardia or fever. she is now pod#3 s/p right axillary debridement and flap elevation for recurrence of her hidradenitis suppurative. Hemodynamically stable and emesis is resolved from yesterday. #R axillary Hidradenitis suppurativa- wound dehiscence and cellulitis with purulent discharge med/surg Dr. Brambila's services and recs appreciated. Return to OR tomorrow morning for flap closure. IV antibiotics per ID consult: Daptomycin and cefepime (gm negative and MRSA coverage) f/u OR cultures and sensitivities IV fluids pain control- seen by pain management consult. follow up recs - NEEDLE LOOM SETTER with Dilaudid. IV Benadryl for pruritus. Zofran- reglan - phenergan PRN for n/v monitor vitals monitor wbc count- mild increase, likley reactive is resolved. cultures negative to date, follow up OR cultures NPO after midnight #Crohn's- stable. Last Remicade a month ago, gets it every 8 weeks and her symptoms are usually constipation only. IF PERSISTENT nausea or emesis would consult GI service. Not clinically indicated today. #Depression/Anxiety- stable. Continue home fluoxetine, and Aripiprazole. # Hypomagnesemia Replete and follow up lab in AM #vte ppx: Heparin #GI ppx: omeprazole Code status: full code I spent 40 minutes on this encounter. > 50% spent on counselling and care coordination. Case d/w Dr. Brambila and RN, also d/w patient time of this note may not reflect time of encounter Subjective Date patient seen: Dec 30, 2018 Time patient seen: 12:00 ROS Limited/Unobtainable: No Neurologic/Psychiatric: Reports: depressed Allergies: Coded Allergies: SILVER (Verified Allergy, Mild, 06/13/18) AZATHIOPRINE (Verified Allergy, Unknown, 05/15/18) DOCUSATE (Verified Allergy, Unknown, 05/15/18) ok for oral LATEX (Verified Allergy, Unknown, 05/15/18) VANCOMYCIN (Verified Allergy, Unknown, 05/15/18) BISACODYL (Verified Adverse Reaction, Severe, Rash, 05/15/18) Uncoded Allergies: IODINE CONTRAST (Allergy, Unknown, 05/15/18) TAPE (Allergy, Unknown, 05/15/18) Subjective Denies any new complains. Pain is controlled with current regimen. Benadryl 50 mg was needed to support her itchiness. No BM x 3 days noted. Objective Last 24 Hour Vital Signs Date Time Temp Pulse Resp B/P (MAP) Pulse Ox O2 Delivery O2 Flow Rate FiO2 12/30/18 09:00 16 12/30/18 09:00 Room Air 12/30/18 08:00 97.1 87 16 118/71 (87) 97 12/30/18 04:00 98.5 104 18 117/79 (92) 97 12/30/18 04:00 104 18 97 12/30/18 00:00 97.5 82 16 117/68 (84) 99 12/30/18 00:00 82 16 99 12/29/18 21:00 Room Air 12/29/18 20:12 97 Nasal Cannula 2.0 28 12/29/18 20:00 87 16 99 12/29/18 20:00 98.2 87 16 101/61 (74) 12/29/18 16:00 88 18 100 12/29/18 16:00 99.3 88 18 101/58 (72) 100 Intake and Output 12/29/18 12/30/18 19:00 07:00 Intake Total 1110 ml Balance 1110 ml IV Total 1110 ml # Voids 3 Laboratory Tests 12/30/18 07:45: White Blood Count 8.1, Red Blood Count 3.71L, Hemoglobin 10.0L, Hematocrit 30.9L , Mean Corpuscular Volume 83, Mean Corpuscular Hemoglobin 26.9L, Mean Corpuscular Hemoglobin Concent 32.2, Red Cell Distribution Width 13.2, Platelet Count 227, Mean Platelet Volume 5.6L, Neutrophils (%) (Auto) 41.3L, Lymphocytes (%) (Auto) 45.2H, Monocytes (%) (Auto) 8.6, Eosinophils (%) (Auto) 4.1H, Basophils (%) (Auto) 0.7, Sodium Level 143, Potassium Level 3.5, Chloride Level 109H, Carbon Dioxide Level 29, Anion Gap 5, Blood Urea Nitrogen 7, Creatinine 0.7, Estimat Glomerular Filtration Rate > 60, Glucose Level 98, Calcium Level 7.8L, Phosphorus Level 3.7, Magnesium Level 1.5L, Total Creatine Kinase 41 Height (Feet): 5 Height (Inches): 6.00 Weight (Pounds): 188 General Appearance: WD/WN, alert EENT: PERRL/EOMI Cardiovascular: normal rate, regular rhythm Respiratory/Chest: lungs clear, normal breath sounds Abdomen: non tender, soft Neurologic: engraver copperplate II-XII grossly normal Skin: normal pigmentation Aida Looney MD Dec 30, 2018 12:33
--- NOTE | 2018-12-30 12:36 | General Progress Note ---
Assessment/Plan Assessment/Plan: (1) Recurrent axillary hidradenitis with active abscess and drainage (2) S/p Radical excision of right axillary tissue (3) Right Axilla pain Patient will be continued on BUSINESS CENTER MANAGER Dilaudid, Dilaudid IV and Percocet D/w Dr. Long and he concurred. Subjective Date patient seen: Dec 30, 2018 Time patient seen: 12:00 - pm Constitutional: Reports: no symptoms HEENT: Reports: no symptoms Cardiovascular: Reports: no symptoms Respiratory: Reports: no symptoms Gastrointestinal/Abdominal: Reports: no symptoms Genitourinary: Reports: no symptoms Neurologic/Psychiatric: Reports: no symptoms Endocrine: Reports: no symptoms Hematologic/Lymphatic: Reports: no symptoms Allergies: Coded Allergies: SILVER (Verified Allergy, Mild, 06/13/18) AZATHIOPRINE (Verified Allergy, Unknown, 05/15/18) DOCUSATE (Verified Allergy, Unknown, 05/15/18) ok for oral LATEX (Verified Allergy, Unknown, 05/15/18) VANCOMYCIN (Verified Allergy, Unknown, 05/15/18) BISACODYL (Verified Adverse Reaction, Severe, Rash, 05/15/18) Uncoded Allergies: IODINE CONTRAST (Allergy, Unknown, 05/15/18) TAPE (Allergy, Unknown, 05/15/18) Subjective Patient is in bed and reports moderate pain using the BUSINESS CENTER MANAGER 9.8mg in the last 24hr, 2 Percocet and 3 Dilaudid breakthrough. At this time she is comfortable with no new complaints eating lunch. Objective Last 24 Hour Vital Signs Date Time Temp Pulse Resp B/P (MAP) Pulse Ox O2 Delivery O2 Flow Rate FiO2 12/30/18 09:00 16 12/30/18 09:00 Room Air 12/30/18 08:00 97.1 87 16 118/71 (87) 97 12/30/18 04:00 98.5 104 18 117/79 (92) 97 12/30/18 04:00 104 18 97 12/30/18 00:00 97.5 82 16 117/68 (84) 99 12/30/18 00:00 82 16 99 12/29/18 21:00 Room Air 12/29/18 20:12 97 Nasal Cannula 2.0 28 12/29/18 20:00 87 16 99 12/29/18 20:00 98.2 87 16 101/61 (74) 12/29/18 16:00 88 18 100 12/29/18 16:00 99.3 88 18 101/58 (72) 100 Intake and Output 12/29/18 12/30/18 19:00 07:00 Intake Total 1110 ml Balance 1110 ml IV Total 1110 ml # Voids 3 Laboratory Tests 12/30/18 07:45: White Blood Count 8.1, Red Blood Count 3.71L, Hemoglobin 10.0L, Hematocrit 30.9L , Mean Corpuscular Volume 83, Mean Corpuscular Hemoglobin 26.9L, Mean Corpuscular Hemoglobin Concent 32.2, Red Cell Distribution Width 13.2, Platelet Count 227, Mean Platelet Volume 5.6L, Neutrophils (%) (Auto) 41.3L, Lymphocytes (%) (Auto) 45.2H, Monocytes (%) (Auto) 8.6, Eosinophils (%) (Auto) 4.1H, Basophils (%) (Auto) 0.7, Sodium Level 143, Potassium Level 3.5, Chloride Level 109H, Carbon Dioxide Level 29, Anion Gap 5, Blood Urea Nitrogen 7, Creatinine 0.7, Estimat Glomerular Filtration Rate > 60, Glucose Level 98, Calcium Level 7.8L, Phosphorus Level 3.7, Magnesium Level 1.5L, Total Creatine Kinase 41 Height (Feet): 5 Height (Inches): 6.00 Weight (Pounds): 188 General Appearance: no apparent distress, alert EENT: PERRL/EOMI, normal ENT inspection Neck: non-tender, normal alignment Respiratory/Chest: lungs clear, normal breath sounds Abdomen: normal bowel sounds, non tender Extremities: other - right axilla bandages noted Edema: no edema noted Generalized Neurologic: alert, oriented x 3 Skin: normal pigmentation Hao Aldana Dec 30, 2018 12:36
[2018-12-30] MEDS ORDERED: PCA HYDROmorphone 1mg/ml 30 ML IV PRN (15:30)
[2018-12-30 16:00] VITALS: BP 112/69
[2018-12-30] MEDS: LORazepam Inj 2mg/ml 1ml IV PRN (16:24)
--- NOTE | 2018-12-30 18:28 | NUR ---
NURSE NOTES: Patient showered. Performed right axilla dressing change per MD order. Patient tolerated well.
[2018-12-30] MEDS: DAPTOmycin 500 MG in NS 50 ML IV SCH (18:29)
[2018-12-30 20:00] VITALS: BP 118/71
--- NOTE | 2018-12-30 20:15 | NUR ---
NURSE NOTES: Received report from LIA Reyes. Patient alert oriented. Bed in low position, locked, side rails up x2. Patient using RECREATION CENTER DIRECTOR Dilaudid, call light and RECREATION CENTER DIRECTOR button within reach. C/o pain at IV site. IV discontinued. Attempted IV start on L arm without success.
[2018-12-30] MEDS: Miralax 17gm pkt ORAL SCH ×2 (21:00→22:41)
--- NOTE | 2018-12-30 22:10 | NUR ---
NURSE NOTES: Charge nurse attempted IV start in L arm without success. IV was started on R hand, gauge #22. CREDIT RISK MANAGER and IVF restarted at this time. Will continue to monitor.
[2018-12-31] VITALS (19 sets, daily range): BP systolic 91–136; BP diastolic 59–83
[2018-12-31] MEDS: HYDROmorphone 1mg/ml Carpuject IVP PRN ×2 (00:05→22:05)
[2018-12-31] MEDS: DiphenhydrAMINE 50mg/ml Inj IVP PRN ×2 (05:15→20:22)
[2018-12-31] MEDS: PCA shift volume MISC SCH ×2 (07:00→19:00)
--- NOTE | 2018-12-31 07:30 | NUR ---
HAND-OFF: Report given to LIA Reyes. Aware pre op checklist needed for this morning.
--- NOTE | 2018-12-31 07:45 | NUR ---
NURSE NOTES: Received report from Jessica FITZGERALD. Patient is awake and oriented, no acute distress noted, reporting pain in right axilla but not requesting additional pain medication at this time, patient is using MEAT TEAM MEMBER, settings checked and verified against order. IV in right hand patent and intact, running NS per MD order, will verify if ok with Dr. Brambila to have IV running on operative side. Right axilla dressing clean and dry. Patient has been NPO since midnight for surgery today. All needs met at this time. Side rails upx2, bed low and locked, call light within reach.
--- NOTE | 2018-12-31 07:49 | NUR ---
NURSE NOTES: Type and screen ordered for pre-op today. Called lab and instructed to add on to AM lab draw.
[2018-12-31 07:54] LABS: BASOPHILS % (AUTO) 1.2 % (0.0-2.0); HEMATOCRIT 33.4 % (37.0-47.0); LYMPHOCYTES % (AUTO) 46.9 % (20.0-45.0); MEAN CORPUSCULAR VOLUME 85 FL (80-99); MONOCYTES % (AUTO) 8.4 % (1.0-10.0); NEUTROPHILS % (AUTO) 39.4 % (45.0-75.0); PLATELET COUNT 255 K/UL (150-450); RED BLOOD COUNT 3.94 M/UL (4.20-5.40); RED CELL DISTRIBUTION WIDTH 13.1 % (11.6-14.8); WHITE BLOOD COUNT 7.9 K/UL (4.8-10.8)
[2018-12-31 08:08] LABS: ANION GAP 5 mmol/L (5-15); BLOOD UREA NITROGEN 5 mg/dL (7-18); CALCIUM 7.9 MG/DL (8.5-10.1); CARBON DIOXIDE 30 MMOL/L (21-32); CHLORIDE 108 MMOL/L (98-107); CREATININE 0.6 MG/DL (0.55-1.30); POTASSIUM 3.7 MMOL/L (3.5-5.1); SODIUM 143 MMOL/L (136-145)
--- NOTE | 2018-12-31 08:09 | General Progress Note ---
Assessment/Plan Problem List: (1) Depression ICD Codes: F32.9 - Major depressive disorder, single episode, unspecified SNOMED: 82052954 (2) Anxiety ICD Codes: F41.9 - Anxiety disorder, unspecified SNOMED: 06185290 (3) Wound cellulitis ICD Codes: L03.90 - Cellulitis, unspecified SNOMED: 348735454 (4) Wound dehiscence, surgical ICD Codes: T81.31XA - Disruption of external operation (surgical) wound, not elsewhere classified, initial encounter SNOMED: 241846155 Qualifiers: Qualified Codes: T81.31XA - Disruption of external operation (surgical) wound, not elsewhere classified, initial encounter (5) Surgical site infection ICD Codes: T81.49XA - Infection following a procedure, other surgical site, initial encounter SNOMED: 34231138, 685166137 (6) Hidradenitis suppurativa of right axilla ICD Codes: L73.2 - Hidradenitis suppurativa SNOMED: 635813273 (7) Crohns disease ICD Codes: K50.90 - Crohn's disease, unspecified, without complications SNOMED: 16552991 Assessment/Plan: 23 year old female with hx of Hidradenitis suppurativa presents with right axillary wound dehiscence, purulent discharge and wound cellulitis, failed outpatient treatment. she is now pod#4 s/p right axillary debridement and flap elevation for recurrence of her hidradenitis suppurative. Hemodynamically stable #R axillary Hidradenitis suppurativa- wound dehiscence and cellulitis with purulent discharge med/surg Dr. Brambila's services and recs appreciated IV antibiotics per ID consult: Daptomycin and cefepime (gm negative and MRSA coverage) f/u OR cultures and sensitivities pain control- seen by pain management consult. follow up recs IV Benadryl for pleuritis Zofran for n/v monitor vitals Blood cultures negative to date, follow up OR cultures OR today for flap closure #Crohn's- stable. Last Remicade a month ago, gets it every 8 weeks #constipation #N/V- resolved -continue to monitor closely, given history of IBD. Will get GI involved if need be #Hypomagnesemia -Replace as needed #Depression/Anxiety- stable. Continue home fluoxetine, and Aripiprazole. #vte ppx: Heparin #GI ppx: omeprazole Code status: full code I spent 40 minutes on this encounter. > 50% spent on counselling and care coordination. Case d/w Drs. Brambila and Imani. d/w patient time of this note may not reflect time of encounter Subjective Date patient seen: Dec 31, 2018 ROS Limited/Unobtainable: No Constitutional: Reports: no symptoms, chills, diaphoresis, fever, malaise, weakness, other - pain 06/29 R axilla HEENT: Denies: no symptoms, eye pain, blurred vision, tearing, double vision, ear pain, ear discharge, nose pain, nose congestion, throat pain, throat swelling, mouth pain, mouth swelling, other Cardiovascular: Denies: no symptoms, chest pain, edema, irregular heart rate, lightheadedness, palpitations, syncope, other Respiratory: Denies: no symptoms, cough, orthopnea, shortness of breath, SOB with excertion, SOB at rest, sputum, stridor, wheezing, other Gastrointestinal/Abdominal: Denies: no symptoms, abdomen distended, abdominal pain, black stools, tarry stools, blood in stool, constipated, diarrhea, difficulty swallowing, nausea, poor appetite, poor fluid intake, rectal bleeding , vomiting, other Genitourinary: Reports: no symptoms, burning, discharge, frequency, flank pain , hematuria, incontinence, pain, urgency, other - constipation Neurologic/Psychiatric: Denies: no symptoms, anxiety, depressed, emotional problems, headache, numbness, paresthesia, pre-existing deficit, seizure, tingling, tremors, weakness, other Endocrine: Denies: no symptoms, excessive sweating, flushing, intolerance to cold, intolerance to heat, increased hunger, increased thirst, increased urine, unexplained weight gain, unexplained weight loss, other Allergies: Coded Allergies: SILVER (Verified Allergy, Mild, 06/13/18) AZATHIOPRINE (Verified Allergy, Unknown, 05/15/18) DOCUSATE (Verified Allergy, Unknown, 05/15/18) ok for oral LATEX (Verified Allergy, Unknown, 05/15/18) VANCOMYCIN (Verified Allergy, Unknown, 05/15/18) BISACODYL (Verified Adverse Reaction, Severe, Rash, 05/15/18) Uncoded Allergies: IODINE CONTRAST (Allergy, Unknown, 05/15/18) TAPE (Allergy, Unknown, 05/15/18) Subjective seen and examined. POD #4 afebrile, vss no more n/v, feels better NPO for OR has pain, however better controlled No BM since admission, says normal when her body is stressed out Objective Last 24 Hour Vital Signs Date Time Temp Pulse Resp B/P (MAP) Pulse Ox O2 Delivery O2 Flow Rate FiO2 12/31/18 07:42 96 Nasal Cannula 2.0 28 12/31/18 04:51 18 12/31/18 04:50 96.9 72 18 98/59 (72) 99 12/31/18 00:15 99.7 90 19 115/70 (85) 99 12/31/18 00:15 19 12/30/18 21:00 Room Air 12/30/18 20:00 99.7 98 16 118/71 (87) 98 12/30/18 20:00 16 12/30/18 19:36 99 Nasal Cannula 2.0 28 12/30/18 16:00 14 12/30/18 16:00 98.4 99 14 112/69 (83) 97 12/30/18 12:00 98.3 86 16 136/70 (92) 97 12/30/18 12:00 16 12/30/18 09:00 16 12/30/18 09:00 Room Air Intake and Output 12/30/18 12/31/18 19:00 07:00 Intake Total 2265 ml Balance 2265 ml Intake Oral 960 ml IV Total 1305 ml # Voids 2 Laboratory Tests 12/31/18 07:30: White Blood Count 7.9, Red Blood Count 3.94L, Hemoglobin 11.0L, Hematocrit 33.4L , Mean Corpuscular Volume 85, Mean Corpuscular Hemoglobin 27.9, Mean Corpuscular Hemoglobin Concent 32.9, Red Cell Distribution Width 13.1, Platelet Count 255, Mean Platelet Volume 5.7L, Neutrophils (%) (Auto) 39.4L, Lymphocytes (%) (Auto) 46.9H, Monocytes (%) (Auto) 8.4, Eosinophils (%) (Auto) 4.0H, Basophils (%) (Auto) 1.2, Sodium Level [Pending], Potassium Level [Pending], Chloride Level [Pending], Carbon Dioxide Level [Pending], Blood Urea Nitrogen [ Pending], Creatinine [Pending], Estimat Glomerular Filtration Rate [Pending], Glucose Level [Pending], Calcium Level [Pending], Magnesium Level [Pending] Height (Feet): 5 Height (Inches): 6.00 Weight (Pounds): 188 Objective General Appearance: no apparent distress, alert, non-toxic Head: normocephalic, atraumatic Eyes: bilateral eye normal inspection, bilateral eye PERRL Neck: full range of motion Respiratory: lungs clear, normal breath sounds, speaking full sentences Cardiovascular: regular rate, rhythm, no m/r/g gastrointestinal: obese, soft, healed laparoscopic scars, non tender, non distended Musculoskeletal: decreased range of motion right arm due to pain Genitourinary: healed scars from previous hidradenitis Neurologic: alert, oriented x3, grossly normal Psychiatric: judgement/insight normal Skin: Right axilla dressing: C/D/Isidro Manriquez M.D. Dec 31, 2018 08:09
--- NOTE | 2018-12-31 08:15 | NUR ---
NURSE NOTES: Informed Dr. Brambila patient had IV inserted on operative side. Per jesse AZUL to use IV for now, new IV will be inserted in OR.
[2018-12-31] MEDS: Cefepime HCl 2 GM in D5W 55 ML IVPB SCH ×2 (09:00→20:29)
[2018-12-31] MEDS: Heparin 5000 units/ml inj SUBQ SCH ×2 (09:00→20:24)
--- NOTE | 2018-12-31 09:12 | General Progress Note ---
Assessment/Plan Assessment/Plan: (1) Recurrent axillary hidradenitis with active abscess and drainage (2) S/p Radical excision of right axillary tissue (3) Right Axilla pain Patient will be continued on [employer] Dilaudid, Dilaudid IV and Percocet D/w Dr. Long and he concurred. Subjective Date patient seen: Dec 31, 2018 Time patient seen: 08:45 - am Allergies: Coded Allergies: SILVER (Verified Allergy, Mild, 06/13/18) AZATHIOPRINE (Verified Allergy, Unknown, 05/15/18) DOCUSATE (Verified Allergy, Unknown, 05/15/18) ok for oral LATEX (Verified Allergy, Unknown, 05/15/18) VANCOMYCIN (Verified Allergy, Unknown, 05/15/18) BISACODYL (Verified Adverse Reaction, Severe, Rash, 05/15/18) Uncoded Allergies: IODINE CONTRAST (Allergy, Unknown, 05/15/18) TAPE (Allergy, Unknown, 05/15/18) Subjective Constitutional: Reports: no symptoms HEENT: Reports: no symptoms Cardiovascular: Reports: no symptoms Respiratory: Reports: no symptoms Gastrointestinal/Abdominal: Reports: no symptoms Genitourinary: Reports: no symptoms Neurologic/Psychiatric: Reports: no symptoms Endocrine: Reports: no symptoms Hematologic/Lymphatic: Reports: no symptoms Subjective Patient is in bed and reports pain is at a 7/10 using 7mg of the [employer] in the last 24hrs, using the Dilaudid IV and Percocet for breakthrough pain. Scheduled for flap closure today. No new complaints at this time. Objective Last 24 Hour Vital Signs Date Time Temp Pulse Resp B/P (MAP) Pulse Ox O2 Delivery O2 Flow Rate FiO2 12/31/18 08:00 97.9 82 18 136/78 (97) 98 12/31/18 07:42 96 Nasal Cannula 2.0 28 12/31/18 04:51 18 12/31/18 04:50 96.9 72 18 98/59 (72) 99 12/31/18 00:15 99.7 90 19 115/70 (85) 99 12/31/18 00:15 19 12/30/18 21:00 Room Air 12/30/18 20:00 99.7 98 16 118/71 (87) 98 12/30/18 20:00 16 12/30/18 19:36 99 Nasal Cannula 2.0 28 12/30/18 16:00 14 12/30/18 16:00 98.4 99 14 112/69 (83) 97 12/30/18 12:00 98.3 86 16 136/70 (92) 97 12/30/18 12:00 16 Intake and Output 12/30/18 12/31/18 19:00 07:00 Intake Total 2265 ml 800 ml Balance 2265 ml 800 ml Intake Oral 960 ml IV Total 1305 ml 800 ml # Voids 2 Laboratory Tests 12/31/18 07:30: White Blood Count 7.9, Red Blood Count 3.94L, Hemoglobin 11.0L, Hematocrit 33.4L , Mean Corpuscular Volume 85, Mean Corpuscular Hemoglobin 27.9, Mean Corpuscular Hemoglobin Concent 32.9, Red Cell Distribution Width 13.1, Platelet Count 255, Mean Platelet Volume 5.7L, Neutrophils (%) (Auto) 39.4L, Lymphocytes (%) (Auto) 46.9H, Monocytes (%) (Auto) 8.4, Eosinophils (%) (Auto) 4.0H, Basophils (%) (Auto) 1.2, Sodium Level 143, Potassium Level 3.7, Chloride Level 108H, Carbon Dioxide Level 30, Anion Gap 5, Blood Urea Nitrogen 5L, Creatinine 0.6, Estimat Glomerular Filtration Rate > 60, Glucose Level 95, Calcium Level 7.9L, Magnesium Level 1.9 Height (Feet): 5 Height (Inches): 6.00 Weight (Pounds): 188 Objective General Appearance: no apparent distress, alert EENT: PERRL/EOMI, normal ENT inspection Neck: non-tender, normal alignment Respiratory/Chest: lungs clear, normal breath sounds Abdomen: normal bowel sounds, non tender Extremities: other - right axilla bandages noted Edema: no edema noted Generalized Neurologic: alert, oriented x 3 Skin: normal pigmentation Hao Aldana Dec 31, 2018 09:12
--- NOTE | 2018-12-31 09:54 | Pre-Procedure Note/Attestation ---
Pre-Procedure Note/Attestation Complete Prior to Procedure Planned Procedure: right Procedure Narrative: Right axillary wound flap closure Attestation I attest that I discussed the nature of the procedure; its benefits; risks and complications; and alternatives (and the risks and benefits of such alternatives ), prior to the procedure, with the patient (or the patient's legal sales development representative). I attest that, if there was a reasonable possibility of needing a blood transfusion, the patient (or the patient's legal sales development representative) was given the [facility] standardized written summary, pursuant to the Ishan Muldrow Blood Safety Act ([place] Health and Safety Code # 1645, as amended). I attest that I re-evaluated the patient just prior to the surgery and that there has been no change in the patient's H&P, except as documented below: Sagar Brambila MD Dec 31, 2018 09:54
[2018-12-31] MEDS ORDERED: Zolpidem 5mg tab ORAL PRN (10:00)
[2018-12-31] MEDS ORDERED: PCA Education Pamphlet MISC ONE (10:00)
[2018-12-31] MEDS ORDERED: Rate Change PCA 1 Each MISC PRN (10:00)
--- NOTE | 2018-12-31 10:00 | NUR ---
NURSE NOTES: Patient taken down for surgery by transporter with locked IV.
--- NOTE | 2018-12-31 10:17 | NUR ---
NURSE NOTES: [employer] dilaudid syringe and tubing removed from room and transported to pharmacy. Wasted 12.9mL with pharmacist.
[2018-12-31] MEDS ORDERED: Lidocaine 1% MPF 10mg/ml 5ml ONE (10:35)
[2018-12-31] MEDS ORDERED: Propofol 200mg/20ml IV ONE ×2 (10:35→11:22)
[2018-12-31] MEDS ORDERED: EPINEPHrine 1mg/1ml Amp ONE (10:35)
[2018-12-31] MEDS ORDERED: fentaNYL 100 mcg/2 mL IV ONE (10:35)
[2018-12-31] MEDS ORDERED: Midazolam 2mg/2ml Inj ONE (10:35)
[2018-12-31] MEDS ORDERED: Lidocaine 1% 10mg/ml/Epi 0.005mg/ml 30ml vial INJ ONE (10:36)
[2018-12-31] MEDS ORDERED: Bacitracin 50000 Units Vial ONE (10:36)
[2018-12-31] MEDS ORDERED: TransDerm Scop 1.5mg/72HR Patch TDERMAL ONE (10:44)
[2018-12-31] MEDS ORDERED: NS Irrig 1000ml IRRIG ONE ×2 (10:46→10:58)
--- NOTE | 2018-12-31 10:54 | NUR ---
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
[2018-12-31] MEDS ORDERED: LR 1000ml ONE (11:00)
[2018-12-31] MEDS ORDERED: Sterile Water Irrig 1000ml IRRIG ONE (11:00)
[2018-12-31] MEDS ORDERED: Dyna-Hex 2% Top Sol 2oz TOPIC ONE (11:06)
[2018-12-31] MEDS ORDERED: Morphine Sulfate 10mg/ml Inj ONE (11:19)
[2018-12-31] MEDS ORDERED: Sodium Chloride 10ml vial INJ ONE (11:22)
[2018-12-31] MEDS ORDERED: Acetaminophen (Non formulary) 100 ML IV ONE (11:30)
[2018-12-31] MEDS ORDERED: LR 1000ml 1,000 ML IVLG SCH (11:49)
--- NOTE | 2018-12-31 11:49 | Anethesia Preoperative Eval ---
Anesthesia Pre-op PMH/ROS General Date of Evaluation: Dec 31, 2018 Time of Evaluation: 10:40 Anesthesiologist: Mariola ASA Score: ASA 2 Mallampati Score Class I : Soft palate, uvula, fauces, pillars visible Class II: Soft palate, uvula, fauces visible Class III: Soft palate, base of uvula visible Class IV: Only hard plate visible Mallampati Classification: Class II Surgeon: Patty Diagnosis: Recurrent HS Surgical Procedure: Revision and closure of R axillary wound Anesthesia History: PONV Family History: no anesthesia problems Allergies: Coded Allergies: SILVER (Verified Allergy, Mild, 06/13/18) AZATHIOPRINE (Verified Allergy, Unknown, 05/15/18) DOCUSATE (Verified Allergy, Unknown, 05/15/18) ok for oral LATEX (Verified Allergy, Unknown, 05/15/18) VANCOMYCIN (Verified Allergy, Unknown, 05/15/18) BISACODYL (Verified Adverse Reaction, Severe, Rash, 05/15/18) Uncoded Allergies: IODINE CONTRAST (Allergy, Unknown, 05/15/18) TAPE (Allergy, Unknown, 05/15/18) Medications: see eMAR Patient NPO?: Yes NPO Date: Dec 31, 2018 NPO Time: 0000 Past Medical History Cardiovascular: Denies: HTN, CAD, [place], valve dz, arrhythmia, other Pulmonary: Denies: asthma, COPD, INDIRA, other Gastrointestinal/Genitourinary: Reports: GERD; Denies: CRI, ESRD, other Neurologic/Psychiatric: Reports: depression/anxiety; Denies: dementia, CVA, TIA, other Endocrine: Denies: DM, hypothyroidism, steroids, other HEENT: Denies: cataract (L), cataract (R), glaucoma, AKUTAN (L), AKUTAN (R), other Hematology/Immune: Denies: anemia, DVT, bleeding disorder, other Musculoskeletal/Integumentary: Reports: other - Recurrent HS; Denies: OA, RA, DJD, DDD, edema Other: obesity PMH Narrative: as above PSxH Narrative: See H&P Anesthesia Pre-op Phys. Exam Physician Exam Last Vital Signs Date Time Temp Pulse Resp B/P (MAP) Pulse Ox O2 Delivery O2 Flow Rate FiO2 12/31/18 10:00 16 12/31/18 09:00 Room Air 12/31/18 08:00 97.9 82 136/78 (97) 98 12/31/18 07:42 2.0 28 Constitutional: NAD, other Neurologic: CN 2-12 intact Cardiovascular: RRR, no M/R/G Respiratory: CTA Gastrointestinal: S/NT/ND Airway Exam Mallampati Score: Class II MO: full Neck: flexible ROM: full Teeth: intact Dentures: no upper, no lower Anesthesia Pre-op A/P Labs Hematology Test 12/31/18 07:30 White Blood Count 7.9 K/UL (4.8-10.8) Red Blood Count 3.94 M/UL (4.20-5.40) L Hemoglobin 11.0 G/DL (12.0-16.0) L Hematocrit 33.4 % (37.0-47.0) L Mean Corpuscular Volume 85 FL (80-99) Mean Corpuscular Hemoglobin 27.9 PG (27.0-31.0) Mean Corpuscular Hemoglobin Concent 32.9 G/DL (32.0-36.0) Red Cell Distribution Width 13.1 % (11.6-14.8) Platelet Count 255 K/UL (150-450) Mean Platelet Volume 5.7 FL (6.5-10.1) L Neutrophils (%) (Auto) 39.4 % (45.0-75.0) L Lymphocytes (%) (Auto) 46.9 % (20.0-45.0) H Monocytes (%) (Auto) 8.4 % (1.0-10.0) Eosinophils (%) (Auto) 4.0 % (0.0-3.0) H Basophils (%) (Auto) 1.2 % (0.0-2.0) Chemistry Test 12/31/18 07:30 Sodium Level 143 MMOL/L (136-145) Potassium Level 3.7 MMOL/L (3.5-5.1) Chloride Level 108 MMOL/L (98-107) H Carbon Dioxide Level 30 MMOL/L (21-32) Anion Gap 5 mmol/L (5-15) Blood Urea Nitrogen 5 mg/dL (7-18) L Creatinine 0.6 MG/DL (0.55-1.30) Estimat Glomerular Filtration Rate > 60 mL/min (>60) Glucose Level 95 MG/DL (74-106) Calcium Level 7.9 MG/DL (8.5-10.1) L Magnesium Level 1.9 MG/DL (1.8-2.4) Risk Assessment & Plan Assessment: ASA 2 Plan: GA with LMA Status Change Before Surgery: No Pre-Antibiotics Drug: Ancef 1gr Given Within 1 Hr of Incision: Yes Time Given: 11:16 Baudilio Garnett MD Dec 31, 2018 11:49
[2018-12-31] MEDS ORDERED: Ketorolac 30mg Inj ONE (11:58)
[2018-12-31] MEDS ORDERED: Hydromorphone 0.5mg/0.5ml inj IVP PRN (12:00)
[2018-12-31] MEDS ORDERED: Ketorolac 30mg Inj IV PRN (12:00)
[2018-12-31] MEDS ORDERED: Meperidine 50mg/ml Inj(FOR RIGORS ONLY) IV PRN (12:00)
[2018-12-31] MEDS ORDERED: Midazolam 2mg/2ml Inj IVP PRN (12:00)
[2018-12-31] MEDS ORDERED: Metoclopramide 10mg/2ml Inj IVP PRN (12:00)
[2018-12-31] MEDS ORDERED: DiphenhydrAMINE 50mg/ml Inj IVP PRN (12:00)
--- NOTE | 2018-12-31 12:26 | Operative Note - PDOC ---
Operative Note Operative Note Procedure: Right axillary wound flap closure Surgeon: Patty Demand Planning Analyst: Quinn Anesthesia: general Specimen: yes Complications: none Condition: stable Estimated Blood Loss: none Drains: VANESSA Implant(s) used?: No Sagar Brambila MD Dec 31, 2018 12:26
--- NOTE | 2018-12-31 12:39 | Immediate Post-Op Evaluation ---
Immediate Post-Op Evalulation Immediate Post-Op Evalulation Procedure: Revision and closure of R axillary wound Date of Evaluation: Dec 31, 2018 Time of Evaluation: 12:38 IV Fluids: 800 Blood Products: none Estimated Blood Loss: <50 Urinary Output: none Blood Pressure Systolic: 108 Blood Pressure Diastolic: 56 Pulse Rate: 78 Respiratory Rate: 20 O2 Sat by Pulse Oximetry: 98 Temperature (Fahrenheit): 97.6 Pain Score (1-10): 2 Nausea: No Vomiting: No Complications none Patient Status: reacts, patent, none Hydration Status: adequate Baudilio Garnett MD Dec 31, 2018 12:39
[2018-12-31] MEDS: PCA HYDROmorphone 1mg/ml 30 ML IV PRN (13:20)
--- NOTE | 2018-12-31 13:45 | NUR ---
NURSE NOTES: Patient arrived back to unit at 1340 accompanied by RN. Received report from Danette Kern RN. Patient is asleep but arousable to voice, no acute distress noted, on 3L NC. Left foot IV patent, intact, KVO LR running. GTA Dilaudid started by PACU nurse, settings checked and verified against order, patient placed on eTC02 monitoring. Right axilla dressing clean and dry, VANESSA compressed. SCD on right foot. Safety measures in place. Side rails upx3, bed low and locked, call light within reach.
--- NOTE | 2018-12-31 13:52 | Infectious Diseases Prog Note ---
Assessment/Plan Assessment/Plan ASSESSMENT AND PLAN: 1. right axilla wound infection/abscess/cellulitis, mild leukocytosis, hidradenitis suppurativa - s/p debridement and closure - daptomycin and cefepime - monitor labs, ck wnl 2. Depression. 3. Anxiety. 4. Crohn's disease. 5. History of colectomy. On Remicade. 6. Hidradenitis suppurativa. 7. History of colectomy. 8. Allergies to azathioprine, bisacodyl, docusate, iodine, vancomycin, latex, and silver tape. 9. Family history is positive for depression, anxiety, and Crohn's. 10. Social history is negative. 11. MAR was noted. 12. Case was discussed with RN. 13. Case was discussed with Dr. Johnson. 14. Continue treatment per primary consultants. Subjective Constitutional: Reports: other - patient seen post-o on floor; Denies: fever HEENT: Denies: congestion Respiratory: Denies: shortness of breath Cardiovascular: Denies: chest pain Gastrointestinal/Abdominal: Denies: nausea, vomiting, diarrhea Neurologic: Denies: headache Psychiatric: Denies: depression Skin: Denies: rash Hematologic: Denies: bleeding Musculoskeletal: Reports: pain - on pain control Allergies: Coded Allergies: SILVER (Verified Allergy, Mild, 06/13/18) AZATHIOPRINE (Verified Allergy, Unknown, 05/15/18) DOCUSATE (Verified Allergy, Unknown, 05/15/18) ok for oral LATEX (Verified Allergy, Unknown, 05/15/18) VANCOMYCIN (Verified Allergy, Unknown, 05/15/18) BISACODYL (Verified Adverse Reaction, Severe, Rash, 05/15/18) Uncoded Allergies: IODINE CONTRAST (Allergy, Unknown, 05/15/18) TAPE (Allergy, Unknown, 05/15/18) Objective Vital Signs Last 24 Hour Vital Signs Date Time Temp Pulse Resp B/P (MAP) Pulse Ox O2 Delivery O2 Flow Rate FiO2 12/31/18 13:35 14 12/31/18 13:25 97.0 90 15 113/74 100 Nasal Cannula 3 12/31/18 13:20 86 12 118/76 100 Nasal Cannula 3 12/31/18 13:20 15 12/31/18 13:10 82 14 120/81 100 Simple Mask 6 12/31/18 13:05 85 15 116/81 100 Simple Mask 6 12/31/18 12:55 85 15 115/83 100 Simple Mask 6 12/31/18 12:45 82 16 113/82 100 Simple Mask 6 12/31/18 12:40 97 15 100/78 100 Simple Mask 6 12/31/18 12:39 78 20 98 12/31/18 12:35 97.0 82 13 104/71 100 Simple Mask 6 12/31/18 10:00 16 12/31/18 09:00 Room Air 12/31/18 08:00 97.9 82 18 136/78 (97) 98 12/31/18 08:00 16 12/31/18 07:42 96 Nasal Cannula 2.0 28 12/31/18 04:51 18 12/31/18 04:50 96.9 72 18 98/59 (72) 99 12/31/18 00:15 99.7 90 19 115/70 (85) 99 12/31/18 00:15 19 12/30/18 21:00 Room Air 12/30/18 20:00 99.7 98 16 118/71 (87) 98 12/30/18 20:00 16 12/30/18 19:36 99 Nasal Cannula 2.0 28 12/30/18 16:00 14 12/30/18 16:00 98.4 99 14 112/69 (83) 97 Height (Feet): 5 Height (Inches): 5.00 Weight (Pounds): 197 General Appearance: no acute distress HEENT: normocephalic, atraumatic, anicteric Respiratory/Chest: lungs clear, normal breath sounds, no respiratory distress, no accessory muscle use Cardiovascular: normal rate, regular rhythm, no gallop/murmur, no JVD Abdomen: normal bowel sounds, no organomegaly, non distended Genitourinary: other - no santana Extremities: no cyanosis Skin: no rash Neurologic/Psychiatric: lead material handler II-XII grossly normal, alert, oriented x 3, responsive Lymphatic: no neck adenopathy Musculoskeletal: no effusion Objective none Microbiology Date/Time Source Procedure Growth Status 12/26/18 19:50 Blood Blood Culture - Preliminary NO GROWTH AFTER 4 DAYS Resulted Laboratory Tests Test 12/31/18 07:30 White Blood Count 7.9 K/UL (4.8-10.8) Red Blood Count 3.94 M/UL (4.20-5.40) L Hemoglobin 11.0 G/DL (12.0-16.0) L Hematocrit 33.4 % (37.0-47.0) L Mean Corpuscular Volume 85 FL (80-99) Mean Corpuscular Hemoglobin 27.9 PG (27.0-31.0) Mean Corpuscular Hemoglobin Concent 32.9 G/DL (32.0-36.0) Red Cell Distribution Width 13.1 % (11.6-14.8) Platelet Count 255 K/UL (150-450) Mean Platelet Volume 5.7 FL (6.5-10.1) L Neutrophils (%) (Auto) 39.4 % (45.0-75.0) L Lymphocytes (%) (Auto) 46.9 % (20.0-45.0) H Monocytes (%) (Auto) 8.4 % (1.0-10.0) Eosinophils (%) (Auto) 4.0 % (0.0-3.0) H Basophils (%) (Auto) 1.2 % (0.0-2.0) Sodium Level 143 MMOL/L (136-145) Potassium Level 3.7 MMOL/L (3.5-5.1) Chloride Level 108 MMOL/L (98-107) H Carbon Dioxide Level 30 MMOL/L (21-32) Anion Gap 5 mmol/L (5-15) Blood Urea Nitrogen 5 mg/dL (7-18) L Creatinine 0.6 MG/DL (0.55-1.30) Estimat Glomerular Filtration Rate > 60 mL/min (>60) Glucose Level 95 MG/DL (74-106) Calcium Level 7.9 MG/DL (8.5-10.1) L Magnesium Level 1.9 MG/DL (1.8-2.4) Current Medications Medications (Trade) Dose Ordered Sig/Alix Route PRN Reason Start Time Stop Time Status Last Admin Dose Admin Acetaminophen (Tylenol) 650 mg Q4H PRN ORAL Mild Pain (Pain Scale 1-3) 12/26/18 20:15 01/25/19 20:14 Acetaminophen (Tylenol) 650 mg Q4H PRN ORAL FEVER (temp>100.5F) 12/27/18 13:45 01/26/19 13:44 Acetaminophen (Tylenol) 650 mg Q4H PRN RECTAL Mild Pain (Pain Scale 1-3) 12/26/18 20:15 01/25/19 20:14 Acetaminophen (Tylenol) 650 mg Q4H PRN RECTAL fever 12/26/18 20:15 01/25/19 20:14 Al Hydroxide/Mg Hydroxide (Mylanta II) 30 ml Q6H PRN ORAL dyspepsia 12/26/18 20:15 01/25/19 20:14 Albuterol/ Ipratropium (Albuterol/ Ipratropium) 3 ml Q4H PRN HHN Shortness of Breath 12/26/18 20:15 12/31/18 20:14 Aripiprazole (Abilify) 2.5 mg DAILY ORAL 12/27/18 09:00 01/26/19 08:59 12/31/18 09:00 Cefepime HCl 2 gm/ Dextrose 55 ml @ 110 mls/hr EVERY 12 HOURS IVPB 12/27/18 21:00 01/03/19 20:59 12/31/18 09:00 Daptomycin 500 mg/ Sodium Chloride 50 ml @ 100 mls/hr Q24H IV 12/27/18 18:00 01/03/19 17:59 12/30/18 18:29 Dextrose (Dextrose 50%) 25 ml Q30M PRN IV Hypoglycemia 12/26/18 20:15 01/25/19 20:14 Dextrose (Dextrose 50%) 50 ml Q30M PRN IV Hypoglycemia 12/26/18 20:15 01/25/19 20:14 Diphenhydramine HCl (Benadryl) 12.5 mg Q6H PRN IVP Itching/Pruritis 12/31/18 10:00 01/30/19 09:59 Diphenhydramine HCl (Benadryl) 25 mg Q15M PRN IVP Itching 12/31/18 12:00 12/31/18 21:00 12/31/18 12:57 Fluoxetine HCl (PROzac) 40 mg DAILY ORAL 12/27/18 09:00 01/26/19 08:59 12/31/18 09:00 Heparin Sodium (Porcine) (Heparin 5000 units/ml) 5,000 units EVERY 12 HOURS SUBQ 12/27/18 21:00 01/26/19 20:59 12/30/18 22:41 Hydromorphone HCl 30 ml @ 0 mls/hr Q24H PRN IV For Pain 12/31/18 10:03 01/02/19 10:02 12/31/18 13:20 Hydromorphone HCl (Dilaudid) 0.5 mg Q5M PRN IVP Severe Pain (Pain Scale 7-10) 12/31/18 12:00 12/31/18 21:00 Hydromorphone HCl (Dilaudid) 1 mg Q6H PRN IVP Breakthrough Pain 12/28/18 15:30 01/04/19 15:29 12/31/18 00:05 Ketorolac Tromethamine (Toradol 30mg) 30 mg Q1H PRN IV Severe Breakthru Pain (>7) 12/31/18 12:00 12/31/18 21:00 Lorazepam (Ativan 2mg/ml 1ml) 0.5 mg Q4H PRN IV For Anxiety 12/26/18 20:15 01/02/19 20:14 12/30/18 16:24 Lorazepam (Ativan) 1 mg Q4H PRN ORAL For Anxiety 12/26/18 20:15 01/02/19 20:14 Magnesium Hydroxide (Mom) 30 ml HSPRN PRN ORAL Constipation 12/26/18 20:15 01/25/19 20:14 Meperidine HCl (Demerol) 25 mg Q15M PRN IV chills 12/31/18 12:00 12/31/18 21:00 12/31/18 12:52 Methocarbamol (Robaxin) 500 mg Q4H PRN ORAL spasms 12/26/18 20:15 01/25/19 20:14 Metoclopramide HCl (Reglan) 10 mg Q1H PRN IVP Nausea & Vomiting 12/31/18 12:00 12/31/18 21:00 Metoclopramide HCl (Reglan) 10 mg Q6H PRN IVP Nausea & Vomiting 12/26/18 20:15 01/25/19 20:14 12/28/18 03:43 Midazolam HCl (Versed 2mg/2ml vial) 1 mg Q15M PRN IVP For Anxiety 12/31/18 12:00 12/31/18 21:00 Miscellaneous Medication (ETL DATA ARCHITECT Rate Change) 1 ea DAILY PRN MISC rate change 12/31/18 10:00 01/02/19 09:59 Miscellaneous Medication (ETL DATA ARCHITECT shift volume) 1 ea Q12HR@0700,1900 MISC 12/31/18 19:00 01/02/19 18:59 Naloxone HCl (Narcan) 0.1 mg Q1M PRN IV RR<10/min OR SBP<90 mmHg 12/30/18 10:22 01/01/19 10:19 Nitroglycerin (Ntg) 0.4 mg Q5M X 3 DOSES PRN SL Prn Chest Pain 12/26/18 20:15 01/25/19 20:14 Ondansetron HCl (Zofran) 4 mg Q6H PRN IVP Nausea & Vomiting 12/27/18 13:45 01/26/19 13:44 12/30/18 09:53 Oxycodone/ Acetaminophen (Percocet 10/325) 1 tab Q4H PRN ORAL Severe Pain (Pain Scale 7-10) 12/28/18 15:30 01/04/19 15:29 12/31/18 02:51 Pantoprazole (Protonix) 40 mg DAILY ORAL 12/27/18 09:00 01/26/19 08:59 12/31/18 09:00 Polyethylene Glycol (Miralax) 17 gm BEDTIME ORAL 12/30/18 21:00 01/29/19 20:59 Polyethylene Glycol (Miralax) 17 gm HSPRN PRN ORAL Constipation 12/26/18 20:15 01/25/19 20:14 Prochlorperazine (Compazine) 10 mg Q6H PRN IVP Nausea & Vomiting 12/26/18 20:15 01/25/19 20:14 12/29/18 10:42 Scopolamine (TransDerm Scop 1.5mg/72HR Patch) 1.5 mg ONCE TDERMAL 12/31/18 14:00 12/31/18 16:00 Sodium Chloride 1,000 ml @ 100 mls/hr Q10H IVLG 12/26/18 21:05 01/25/19 21:04 12/30/18 16:23 Temazepam (Restoril) 7.5 mg HSPRN PRN ORAL Insomnia 12/27/18 15:30 01/03/19 13:44 Zolpidem Tartrate (Ambien) 5 mg HSPRN PRN ORAL Insomnia 12/27/18 13:45 01/03/19 13:44 12/29/18 23:58 Niya Holley MD Dec 31, 2018 13:52
[2018-12-31] MEDS ORDERED: TransDerm Scop 1.5mg/72HR Patch TDERMAL SCH (14:00)
--- NOTE | 2018-12-31 14:00 | NUR ---
SCOPOLAMINE PATCH ADMINISTERED BY DR ESTEBAN PRIOR TO SURGERY
--- NOTE | 2018-12-31 17:30 | Operative Note - Dictated ---
DATE OF OPERATION: 12/31/2018 PREOPERATIVE DIAGNOSIS: Open right axillary wound measuring 10 x 12 cm. POSTOPERATIVE DIAGNOSIS: Open right axillary wound measuring 10 x 12 cm. PROCEDURES: 1. Preparation of left axillary wound for adjacent tissue transfer flap closure. 2. Adjacent tissue transfer closure of axillary wound measuring 120 square cm that is going to be CPT code 75421 for the first 30 square cm, and 93973 X 3 for the additional 90 square cms. SURGEON: Sagar Brambila M.D. HOURLY SHIFT: Guy Ball M.D. ANESTHESIA: General. COMPLICATIONS: None. DRAINS: Included a size 15 VANESSA. EBL: Minimal. DISPOSITION: Stable to recovery room. INDICATIONS FOR SURGERY: This is a 23-year-old female, who is now four days status post radical excision of infected hidradenitis in the right axilla with a lateral chest wall flap elevation. The flap was elevated at initial operation; however, flap was not inset due to the presence of the infection at the initial operation. The flap had been placed back in the donor site and upon examination preoperatively today,the flap looks completely viable with no evidence of ischemia. She was consented to undergo a right axillary wound flap closure by adjacent tissue transfer. She understood the risks and benefits of surgery and agreed to proceed. DETAILS OF THE OPERATION: The patient was brought to the operating room and laid in the supine position on the operating room table. Her right arm, axilla, and right chest were prepped and draped in a sterile and usual fashion. The previously raised flap was released by removing the gabo that were holding it in place. Some of the nonviable tissue at the wound edges of the axillary wound itself as well as the donor site were all debrided sharply using a #15 blade and hemostasis was then achieved using the electrocautery. Once the wound that had been adequately prepared, there appeared to be no further evidence of hidradenitis. The previously raised flap which measured approximately 15 x 8 cm was then re-elevated and placed into the defect. It was noted that there needed to be some further mobilization of the flap at its base to allow for complete tension-free transposition. As such some of the inferior attachments to the base were released using the electrocautery and some of the lateral edges as well on the chest wall above the pectoralis major muscle were also undermined to allow for tension-free repair. Again, the wound measured 12 x 10 cm for a total of 120 square centimeters in the axillary region. The flap was then inset without any tension. This was further faciliated by undermining of the adjacent chest wall skin as well as the brachial skin. We were able to accomplish a tension-free adjacent tissue transfer closure of the wound. The donor site was closed using #0 and 2-0 Vicryl sutures. The flap was completely inset using #0 and 2-0 Vicryl sutures and a running 2-0 Prolene with interrupted 3-0 Prolene were used to close the skin and Dermabond was then applied over the skin. The patient tolerated the procedure well. All needle and sponge counts were correct. There was no complications. Sagar Brambila M.D. DR: Shayna JOB#: [id number] CC: QUENTIN
[2018-12-31] MEDS: DAPTOmycin 500 MG in NS 50 ML IV SCH (18:13)
--- NOTE | 2018-12-31 19:30 | NUR ---
HAND-OFF: Report given to Mirtha FITZGERALD.
--- NOTE | 2018-12-31 19:31 | NUR ---
NURSE NOTES: Received report & pt from LIA Reyes. Pt lying in bed, a&ox4, on O2 via NC @ 3LPM. No s/s of acute distress & c/o 8/10 pain. Will give PRN pain med when due & pt verbalized understanding. VANESSA drain intact & to bulb suction. Surgical dressing C/D/I. IV site intact with IVF running as ordered. OPERATIONS RESEARCH GROUP MANAGER setting checked. Bed in lowest position, call light & OPERATIONS RESEARCH GROUP MANAGER pump within reach. Will continue to monitor.
[2018-12-31] MEDS ORDERED: Heparin 5000 units/ml inj SUBQ SCH (21:00)
[2018-12-31] MEDS: Miralax 17gm pkt ORAL SCH (21:00)
[2019-01-01] VITALS: BP 104/62
[2019-01-01 04:00] VITALS: BP 106/61
[2019-01-01] MEDS: DiphenhydrAMINE 50mg/ml Inj IVP PRN ×3 (04:17→16:31)
[2019-01-01] MEDS: HYDROmorphone 1mg/ml Carpuject IVP PRN ×3 (06:42→20:24)
[2019-01-01] MEDS: PCA shift volume MISC SCH ×2 (07:00→19:19)
--- NOTE | 2019-01-01 07:30 | NUR ---
NURSE NOTES: Pt lying in bed w/bed in lowest position and call light/CRITICAL POWER TECHNICIAN button within reach. Pt A&Ox4, VSS, and c/o 8/10 right axilla pain; encouraged pt to press CRITICAL POWER TECHNICIAN button since next pain med not yet due; pt verbalized understanding. Pt's IV site intact/asymptomatic and surgical site C/D/I. Will continue to monitor.
--- NOTE | 2019-01-01 07:30 | NUR ---
HAND-OFF: Report given to LIA Connelly & LIA Woods. Pt instable condition. Rounds done.
[2019-01-01 07:45] LABS: BASOPHILS % (AUTO) 0.9 % (0.0-2.0); EOSINOPHILS % (AUTO) 3.7 % (0.0-3.0); HEMATOCRIT 32.2 % (37.0-47.0); HEMOGLOBIN 10.4 G/DL (12.0-16.0); LYMPHOCYTES % (AUTO) 34.5 % (20.0-45.0); MEAN CORPUSCULAR VOLUME 85 FL (80-99); MONOCYTES % (AUTO) 9.2 % (1.0-10.0); NEUTROPHILS % (AUTO) 51.7 % (45.0-75.0); PLATELET COUNT 236 K/UL (150-450); RED CELL DISTRIBUTION WIDTH 13.2 % (11.6-14.8); WHITE BLOOD COUNT 8.7 K/UL (4.8-10.8)
[2019-01-01 07:58] LABS: ANION GAP 2 mmol/L (5-15); BLOOD UREA NITROGEN 5 mg/dL (7-18); CALCIUM 7.5 MG/DL (8.5-10.1); CARBON DIOXIDE 34 MMOL/L (21-32); CHLORIDE 107 MMOL/L (98-107); CREATININE 0.7 MG/DL (0.55-1.30); POTASSIUM 3.6 MMOL/L (3.5-5.1); SODIUM 142 MMOL/L (136-145)
[2019-01-01 08:00] VITALS: BP 105/63
--- NOTE | 2019-01-01 09:01 | General Progress Note ---
Assessment/Plan Assessment/Plan: (1) Recurrent axillary hidradenitis with active abscess and drainage (2) S/p Radical excision of right axillary tissue (3) Right Axilla pain Patient will be continued on MANAGER GRAPHIC Dilaudid, Dilaudid IV and Percocet D/w Dr. Long and he concurred. Subjective Date patient seen: Jan 01, 2019 Time patient seen: 08:45 - am Allergies: Coded Allergies: SILVER (Verified Allergy, Mild, 06/13/18) AZATHIOPRINE (Verified Allergy, Unknown, 05/15/18) DOCUSATE (Verified Allergy, Unknown, 05/15/18) ok for oral LATEX (Verified Allergy, Unknown, 05/15/18) VANCOMYCIN (Verified Allergy, Unknown, 05/15/18) BISACODYL (Verified Adverse Reaction, Severe, Rash, 05/15/18) Uncoded Allergies: IODINE CONTRAST (Allergy, Unknown, 05/15/18) TAPE (Allergy, Unknown, 05/15/18) Subjective Constitutional: Reports: no symptoms HEENT: Reports: no symptoms Cardiovascular: Reports: no symptoms Respiratory: Reports: no symptoms Gastrointestinal/Abdominal: Reports: no symptoms Genitourinary: Reports: no symptoms Neurologic/Psychiatric: Reports: no symptoms Endocrine: Reports: no symptoms Hematologic/Lymphatic: Reports: no symptoms Subjective Patient continues to c/o pain in the right axilla increased due to wound flap. She has used 7.4mg of the MANAGER GRAPHIC, with Dilaudid and Percocet for breakthrough pain. D/w Dr. Johnson. Objective Last 24 Hour Vital Signs Date Time Temp Pulse Resp B/P (MAP) Pulse Ox O2 Delivery O2 Flow Rate FiO2 01/01/19 08:00 18 93 01/01/19 08:00 98.8 77 16 105/63 (77) 97 01/01/19 04:00 18 01/01/19 04:00 98.5 77 18 106/61 (76) 97 01/01/19 00:00 18 01/01/19 00:00 98.5 79 18 104/62 (76) 95 12/31/18 21:00 Room Air 12/31/18 20:00 98.7 98 16 91/61 (71) 94 12/31/18 20:00 19 12/31/18 19:37 97 Nasal Cannula 2.0 28 12/31/18 16:51 98 Nasal Cannula 2.0 28 12/31/18 16:50 99.9 84 18 100/61 (74) 100 12/31/18 16:00 18 12/31/18 15:50 98.9 83 16 103/62 (76) 98 12/31/18 14:50 18 12/31/18 14:50 82 16 106/64 (78) 95 12/31/18 14:20 98.7 82 14 99/60 (73) 94 12/31/18 14:20 14 12/31/18 13:50 14 12/31/18 13:40 97.8 82 14 110/74 (86) 97 12/31/18 13:35 14 12/31/18 13:30 97.0 12/31/18 13:30 97.0 12/31/18 13:30 85 13 109/76 100 Nasal Cannula 3 12/31/18 13:25 97.0 90 15 113/74 100 Nasal Cannula 3 12/31/18 13:20 86 12 118/76 100 Nasal Cannula 3 12/31/18 13:20 15 12/31/18 13:10 82 14 120/81 100 Simple Mask 6 12/31/18 13:05 85 15 116/81 100 Simple Mask 6 12/31/18 12:55 85 15 115/83 100 Simple Mask 6 12/31/18 12:45 82 16 113/82 100 Simple Mask 6 12/31/18 12:40 97 15 100/78 100 Simple Mask 6 12/31/18 12:39 78 20 98 12/31/18 12:35 97.0 82 13 104/71 100 Simple Mask 6 12/31/18 10:00 16 Intake and Output 12/31/18 01/01/19 19:00 07:00 Intake Total 2305 ml 780 ml Output Total 80 ml 28 ml Balance 2225 ml 752 ml Intake Oral 700 ml 480 ml IV Total 1605 ml 300 ml Output Drainage Total 30 ml 28 ml Estimated Blood Loss 50 ml # Voids 5 2 Laboratory Tests 01/01/19 07:30: White Blood Count 8.7, Red Blood Count 3.80L, Hemoglobin 10.4L, Hematocrit 32.2L , Mean Corpuscular Volume 85, Mean Corpuscular Hemoglobin 27.4, Mean Corpuscular Hemoglobin Concent 32.3, Red Cell Distribution Width 13.2, Platelet Count 236, Mean Platelet Volume 5.5L, Neutrophils (%) (Auto) 51.7, Lymphocytes ( %) (Auto) 34.5, Monocytes (%) (Auto) 9.2, Eosinophils (%) (Auto) 3.7H, Basophils (%) (Auto) 0.9, Sodium Level 142, Potassium Level 3.6, Chloride Level 107, Carbon Dioxide Level 34H, Anion Gap 2L, Blood Urea Nitrogen 5L, Creatinine 0.7, Estimat Glomerular Filtration Rate > 60, Glucose Level 98, Calcium Level 7.5L, Magnesium Level 1.6L Height (Feet): 5 Height (Inches): 5.00 Weight (Pounds): 197 Objective General Appearance: no apparent distress, alert EENT: PERRL/EOMI, normal ENT inspection Neck: non-tender, normal alignment Respiratory/Chest: lungs clear, normal breath sounds Abdomen: normal bowel sounds, non tender Extremities: other - right axilla bandages noted Edema: no edema noted Generalized Neurologic: alert, oriented x 3 Skin: normal pigmentation Hao Aldana Jan 01, 2019 09:01
[2019-01-01] MEDS: Cefepime HCl 2 GM in D5W 55 ML IVPB SCH ×2 (09:02→20:28)
[2019-01-01] MEDS: Heparin 5000 units/ml inj SUBQ SCH ×2 (09:06→20:27)
[2019-01-01] MEDS ORDERED: Tubing IV Secondary IV ONE (09:27)
--- NOTE | 2019-01-01 10:18 | General Progress Note ---
Assessment/Plan Problem List: (1) Depression ICD Codes: F32.9 - Major depressive disorder, single episode, unspecified SNOMED: 49696905 (2) Anxiety ICD Codes: F41.9 - Anxiety disorder, unspecified SNOMED: 84619284 (3) Wound cellulitis ICD Codes: L03.90 - Cellulitis, unspecified SNOMED: 341422239 (4) Wound dehiscence, surgical ICD Codes: T81.31XA - Disruption of external operation (surgical) wound, not elsewhere classified, initial encounter SNOMED: 746337283 Qualifiers: Qualified Codes: T81.31XA - Disruption of external operation (surgical) wound, not elsewhere classified, initial encounter (5) Surgical site infection ICD Codes: T81.49XA - Infection following a procedure, other surgical site, initial encounter SNOMED: 50899163, [id number] (6) Hidradenitis suppurativa of right axilla ICD Codes: L73.2 - Hidradenitis suppurativa SNOMED: 540251663 (7) Crohns disease ICD Codes: K50.90 - Crohn's disease, unspecified, without complications SNOMED: 89436220 Assessment/Plan: 23 year old female with hx of Hidradenitis suppurativa presents with right axillary wound dehiscence, purulent discharge and wound cellulitis, failed outpatient treatment. she is now pod#5 s/p right axillary debridement and flap elevation for recurrence of her hidradenitis suppurative. PD #1, flap closure. Hemodynamically stable #R axillary Hidradenitis suppurativa- wound dehiscence and cellulitis with purulent discharge med/surg Dr. Brambila's services and recs appreciated IV antibiotics per ID consult: Daptomycin and cefepime (gm negative and MRSA coverage) f/u OR cultures and sensitivities pain control- seen by pain management consult. follow up recs IV Benadryl for pleuritis Zofran for n/v monitor vitals Blood cultures negative to date, follow up OR cultures #Crohn's- stable. Last Remicade a month ago, gets it every 8 weeks #constipation #N/V- resolved -continue to monitor closely, given history of IBD. -GI consult for constipation #Hypomagnesemia, hypokalemia, hypocalcemia -Replace as needed -order ionized calcium #Depression/Anxiety- stable. Continue home fluoxetine, and Aripiprazole. #vte ppx: Heparin #GI ppx: omeprazole Code status: full code I spent 40 minutes on this encounter. > 50% spent on counselling and care coordination. Case d/w Drs. Brambila and Imani. d/w patient time of this note may not reflect time of encounter Subjective Date patient seen: Jan 01, 2019 ROS Limited/Unobtainable: No Constitutional: Reports: no symptoms, chills, diaphoresis, fever, malaise, weakness, other - 8/10 pain right axilla HEENT: Denies: no symptoms, eye pain, blurred vision, tearing, double vision, ear pain, ear discharge, nose pain, nose congestion, throat pain, throat swelling, mouth pain, mouth swelling, other Cardiovascular: Denies: no symptoms, chest pain, edema, irregular heart rate, lightheadedness, palpitations, syncope, other Respiratory: Denies: no symptoms, cough, orthopnea, shortness of breath, SOB with excertion, SOB at rest, sputum, stridor, wheezing, other Gastrointestinal/Abdominal: Reports: no symptoms, abdomen distended, abdominal pain, black stools, tarry stools, blood in stool, diarrhea, difficulty swallowing, nausea, poor appetite, poor fluid intake, rectal bleeding, vomiting , other Genitourinary: Denies: no symptoms, burning, discharge, frequency, flank pain, hematuria, incontinence, pain, urgency, other Neurologic/Psychiatric: Denies: no symptoms, anxiety, depressed, emotional problems, headache, numbness, paresthesia, pre-existing deficit, seizure, tingling, tremors, weakness, other Endocrine: Denies: no symptoms, excessive sweating, flushing, intolerance to cold, intolerance to heat, increased hunger, increased thirst, increased urine, unexplained weight gain, unexplained weight loss, other Hematologic/Lymphatic: Denies: no symptoms, anemia, easy bleeding, easy bruising, other Allergies: Coded Allergies: SILVER (Verified Allergy, Mild, 06/13/18) AZATHIOPRINE (Verified Allergy, Unknown, 05/15/18) DOCUSATE (Verified Allergy, Unknown, 05/15/18) ok for oral LATEX (Verified Allergy, Unknown, 05/15/18) VANCOMYCIN (Verified Allergy, Unknown, 05/15/18) BISACODYL (Verified Adverse Reaction, Severe, Rash, 05/15/18) Uncoded Allergies: IODINE CONTRAST (Allergy, Unknown, 05/15/18) TAPE (Allergy, Unknown, 05/15/18) Subjective seen and examined. POD #5 s/p initial flap, POD #1 flap closure. VSS. Has lots of pain, doesn't want change in pain meds, fear of addiction. Has not had a bowel movement since she came to the hospital. urinates okay Objective Last 24 Hour Vital Signs Date Time Temp Pulse Resp B/P (MAP) Pulse Ox O2 Delivery O2 Flow Rate FiO2 01/01/19 09:32 98.8 01/01/19 09:00 Room Air 01/01/19 08:00 18 93 01/01/19 08:00 98.8 77 16 105/63 (77) 97 01/01/19 04:00 18 01/01/19 04:00 98.5 77 18 106/61 (76) 97 01/01/19 00:00 18 01/01/19 00:00 98.5 79 18 104/62 (76) 95 12/31/18 21:00 Room Air 12/31/18 20:00 98.7 98 16 91/61 (71) 94 12/31/18 20:00 19 12/31/18 19:37 97 Nasal Cannula 2.0 28 12/31/18 16:51 98 Nasal Cannula 2.0 28 12/31/18 16:50 99.9 84 18 100/61 (74) 100 12/31/18 16:00 18 12/31/18 15:50 98.9 83 16 103/62 (76) 98 12/31/18 14:50 18 12/31/18 14:50 82 16 106/64 (78) 95 12/31/18 14:20 98.7 82 14 99/60 (73) 94 12/31/18 14:20 14 12/31/18 13:50 14 12/31/18 13:40 97.8 82 14 110/74 (86) 97 12/31/18 13:35 14 12/31/18 13:30 97.0 12/31/18 13:30 97.0 12/31/18 13:30 85 13 109/76 100 Nasal Cannula 3 12/31/18 13:25 97.0 90 15 113/74 100 Nasal Cannula 3 12/31/18 13:20 86 12 118/76 100 Nasal Cannula 3 12/31/18 13:20 15 12/31/18 13:10 82 14 120/81 100 Simple Mask 6 12/31/18 13:05 85 15 116/81 100 Simple Mask 6 12/31/18 12:55 85 15 115/83 100 Simple Mask 6 12/31/18 12:45 82 16 113/82 100 Simple Mask 6 12/31/18 12:40 97 15 100/78 100 Simple Mask 6 12/31/18 12:39 78 20 98 12/31/18 12:35 97.0 82 13 104/71 100 Simple Mask 6 Intake and Output 12/31/18 01/01/19 19:00 07:00 Intake Total 2305 ml 780 ml Output Total 80 ml 28 ml Balance 2225 ml 752 ml Intake Oral 700 ml 480 ml IV Total 1605 ml 300 ml Output Drainage Total 30 ml 28 ml Estimated Blood Loss 50 ml # Voids 5 2 Laboratory Tests 01/01/19 07:30: White Blood Count 8.7, Red Blood Count 3.80L, Hemoglobin 10.4L, Hematocrit 32.2L , Mean Corpuscular Volume 85, Mean Corpuscular Hemoglobin 27.4, Mean Corpuscular Hemoglobin Concent 32.3, Red Cell Distribution Width 13.2, Platelet Count 236, Mean Platelet Volume 5.5L, Neutrophils (%) (Auto) 51.7, Lymphocytes ( %) (Auto) 34.5, Monocytes (%) (Auto) 9.2, Eosinophils (%) (Auto) 3.7H, Basophils (%) (Auto) 0.9, Sodium Level 142, Potassium Level 3.6, Chloride Level 107, Carbon Dioxide Level 34H, Anion Gap 2L, Blood Urea Nitrogen 5L, Creatinine 0.7, Estimat Glomerular Filtration Rate > 60, Glucose Level 98, Calcium Level 7.5L, Magnesium Level 1.6L Height (Feet): 5 Height (Inches): 5.00 Weight (Pounds): 197 Objective General Appearance: no apparent distress, alert, non-toxic Head: normocephalic, atraumatic Eyes: bilateral eye normal inspection, bilateral eye PERRL Neck: full range of motion Respiratory: lungs clear, normal breath sounds, speaking full sentences Cardiovascular: regular rate, rhythm, no m/r/g gastrointestinal: obese, soft, healed laparoscopic scars, non tender, non distended Musculoskeletal: decreased range of motion right arm due to pain Genitourinary: healed scars from previous hidradenitis Neurologic: alert, oriented x3, grossly normal Psychiatric: judgement/insight normal Skin: Right axilla dressing: C/D/I Isidro Steinberg M.D. Jan 01, 2019 10:18
--- NOTE | 2019-01-01 10:21 | Infectious Diseases Prog Note ---
Assessment/Plan Assessment/Plan ASSESSMENT AND PLAN: 1. right axilla wound infection/abscess/cellulitis, mild leukocytosis, hidradenitis suppurativa - s/p debridement and closure - daptomycin and cefepime - monitor labs, ck wnl 2. Depression. 3. Anxiety. 4. Crohn's disease. 5. History of colectomy. On Remicade. 6. Hidradenitis suppurativa. 7. History of colectomy. 8. Allergies to azathioprine, bisacodyl, docusate, iodine, vancomycin, latex, and silver tape. 9. Family history is positive for depression, anxiety, and Crohn's. 10. Social history is negative. 11. MAR was noted. 12. Case was discussed with RN. 13. Case was discussed with Dr. Johnson. 14. Continue treatment per primary consultants. Subjective Constitutional: Denies: fever HEENT: Denies: congestion Respiratory: Denies: shortness of breath Cardiovascular: Denies: chest pain Gastrointestinal/Abdominal: Denies: nausea, vomiting, diarrhea Allergies: Coded Allergies: SILVER (Verified Allergy, Mild, 06/13/18) AZATHIOPRINE (Verified Allergy, Unknown, 05/15/18) DOCUSATE (Verified Allergy, Unknown, 05/15/18) ok for oral LATEX (Verified Allergy, Unknown, 05/15/18) VANCOMYCIN (Verified Allergy, Unknown, 05/15/18) BISACODYL (Verified Adverse Reaction, Severe, Rash, 05/15/18) Uncoded Allergies: IODINE CONTRAST (Allergy, Unknown, 05/15/18) TAPE (Allergy, Unknown, 05/15/18) Objective Vital Signs Last 24 Hour Vital Signs Date Time Temp Pulse Resp B/P (MAP) Pulse Ox O2 Delivery O2 Flow Rate FiO2 01/01/19 09:32 98.8 01/01/19 09:00 Room Air 01/01/19 08:00 18 93 01/01/19 08:00 98.8 77 16 105/63 (77) 97 01/01/19 04:00 18 01/01/19 04:00 98.5 77 18 106/61 (76) 97 01/01/19 00:00 18 01/01/19 00:00 98.5 79 18 104/62 (76) 95 12/31/18 21:00 Room Air 12/31/18 20:00 98.7 98 16 91/61 (71) 94 12/31/18 20:00 19 12/31/18 19:37 97 Nasal Cannula 2.0 28 12/31/18 16:51 98 Nasal Cannula 2.0 28 12/31/18 16:50 99.9 84 18 100/61 (74) 100 12/31/18 16:00 18 12/31/18 15:50 98.9 83 16 103/62 (76) 98 12/31/18 14:50 18 12/31/18 14:50 82 16 106/64 (78) 95 12/31/18 14:20 98.7 82 14 99/60 (73) 94 12/31/18 14:20 14 12/31/18 13:50 14 12/31/18 13:40 97.8 82 14 110/74 (86) 97 12/31/18 13:35 14 12/31/18 13:30 97.0 12/31/18 13:30 97.0 12/31/18 13:30 85 13 109/76 100 Nasal Cannula 3 12/31/18 13:25 97.0 90 15 113/74 100 Nasal Cannula 3 12/31/18 13:20 86 12 118/76 100 Nasal Cannula 3 12/31/18 13:20 15 12/31/18 13:10 82 14 120/81 100 Simple Mask 6 12/31/18 13:05 85 15 116/81 100 Simple Mask 6 12/31/18 12:55 85 15 115/83 100 Simple Mask 6 12/31/18 12:45 82 16 113/82 100 Simple Mask 6 12/31/18 12:40 97 15 100/78 100 Simple Mask 6 12/31/18 12:39 78 20 98 12/31/18 12:35 97.0 82 13 104/71 100 Simple Mask 6 Height (Feet): 5 Height (Inches): 5.00 Weight (Pounds): 197 General Appearance: no acute distress HEENT: normocephalic, atraumatic, anicteric, mucous membranes moist Respiratory/Chest: lungs clear, normal breath sounds, no respiratory distress, no accessory muscle use Cardiovascular: normal rate, regular rhythm, no gallop/murmur Abdomen: normal bowel sounds, soft, non tender, no organomegaly Objective none Laboratory Tests Test 01/01/19 07:30 White Blood Count 8.7 K/UL (4.8-10.8) Red Blood Count 3.80 M/UL (4.20-5.40) L Hemoglobin 10.4 G/DL (12.0-16.0) L Hematocrit 32.2 % (37.0-47.0) L Mean Corpuscular Volume 85 FL (80-99) Mean Corpuscular Hemoglobin 27.4 PG (27.0-31.0) Mean Corpuscular Hemoglobin Concent 32.3 G/DL (32.0-36.0) Red Cell Distribution Width 13.2 % (11.6-14.8) Platelet Count 236 K/UL (150-450) Mean Platelet Volume 5.5 FL (6.5-10.1) L Neutrophils (%) (Auto) 51.7 % (45.0-75.0) Lymphocytes (%) (Auto) 34.5 % (20.0-45.0) Monocytes (%) (Auto) 9.2 % (1.0-10.0) Eosinophils (%) (Auto) 3.7 % (0.0-3.0) H Basophils (%) (Auto) 0.9 % (0.0-2.0) Sodium Level 142 MMOL/L (136-145) Potassium Level 3.6 MMOL/L (3.5-5.1) Chloride Level 107 MMOL/L (98-107) Carbon Dioxide Level 34 MMOL/L (21-32) H Anion Gap 2 mmol/L (5-15) L Blood Urea Nitrogen 5 mg/dL (7-18) L Creatinine 0.7 MG/DL (0.55-1.30) Estimat Glomerular Filtration Rate > 60 mL/min (>60) Glucose Level 98 MG/DL (74-106) Calcium Level 7.5 MG/DL (8.5-10.1) L Magnesium Level 1.6 MG/DL (1.8-2.4) L Current Medications Medications (Trade) Dose Ordered Sig/Alix Route PRN Reason Start Time Stop Time Status Last Admin Dose Admin Acetaminophen (Tylenol) 650 mg Q4H PRN ORAL Mild Pain (Pain Scale 1-3) 12/26/18 20:15 01/25/19 20:14 Acetaminophen (Tylenol) 650 mg Q4H PRN ORAL FEVER (temp>100.5F) 12/27/18 13:45 01/26/19 13:44 Acetaminophen (Tylenol) 650 mg Q4H PRN RECTAL Mild Pain (Pain Scale 1-3) 12/26/18 20:15 01/25/19 20:14 Acetaminophen (Tylenol) 650 mg Q4H PRN RECTAL fever 12/26/18 20:15 01/25/19 20:14 Al Hydroxide/Mg Hydroxide (Mylanta II) 30 ml Q6H PRN ORAL dyspepsia 12/26/18 20:15 01/25/19 20:14 Aripiprazole (Abilify) 2.5 mg DAILY ORAL 12/27/18 09:00 01/26/19 08:59 01/01/19 09:02 Calcium Gluconate 1 gm/Sodium Chloride 120 ml @ 240 mls/hr ONCE IVPB 01/01/19 11:00 01/01/19 13:00 Cefepime HCl 2 gm/ Dextrose 55 ml @ 110 mls/hr EVERY 12 HOURS IVPB 12/27/18 21:00 01/03/19 20:59 01/01/19 09:02 Daptomycin 500 mg/ Sodium Chloride 50 ml @ 100 mls/hr Q24H IV 12/27/18 18:00 01/03/19 17:59 12/31/18 18:13 Dextrose (Dextrose 50%) 25 ml Q30M PRN IV Hypoglycemia 12/26/18 20:15 01/25/19 20:14 Dextrose (Dextrose 50%) 50 ml Q30M PRN IV Hypoglycemia 12/26/18 20:15 01/25/19 20:14 Diphenhydramine HCl (Benadryl) 12.5 mg Q6H PRN IVP Itching/Pruritis 12/31/18 10:00 01/30/19 09:59 01/01/19 04:17 Fluoxetine HCl (PROzac) 40 mg DAILY ORAL 12/27/18 09:00 01/26/19 08:59 01/01/19 09:02 Heparin Sodium (Porcine) (Heparin 5000 units/ml) 5,000 units EVERY 12 HOURS SUBQ 12/27/18 21:00 01/26/19 20:59 01/01/19 09:06 Hydromorphone HCl 30 ml @ 0 mls/hr Q24H PRN IV For Pain 12/31/18 10:03 01/02/19 10:02 12/31/18 13:20 Hydromorphone HCl (Dilaudid) 1 mg Q6H PRN IVP Breakthrough Pain 12/28/18 15:30 01/04/19 15:29 01/01/19 06:42 Lorazepam (Ativan 2mg/ml 1ml) 0.5 mg Q4H PRN IV For Anxiety 12/26/18 20:15 01/02/19 20:14 12/30/18 16:24 Lorazepam (Ativan) 1 mg Q4H PRN ORAL For Anxiety 12/26/18 20:15 01/02/19 20:14 Magnesium Hydroxide (Mom) 30 ml HSPRN PRN ORAL Constipation 12/26/18 20:15 01/25/19 20:14 Magnesium Sulfate 100 ml @ 100 mls/hr Q1H IVPB 01/01/19 10:15 01/01/19 12:14 Methocarbamol (Robaxin) 500 mg Q4H PRN ORAL spasms 12/26/18 20:15 01/25/19 20:14 Metoclopramide HCl (Reglan) 10 mg Q6H PRN IVP Nausea & Vomiting 12/26/18 20:15 01/25/19 20:14 12/28/18 03:43 Miscellaneous Medication (POLL CLERK Rate Change) 1 ea DAILY PRN MISC rate change 12/31/18 10:00 01/02/19 09:59 Miscellaneous Medication (POLL CLERK shift volume) 1 ea Q12HR@0700,1900 MISC 12/31/18 19:00 01/02/19 18:59 01/01/19 07:00 Nitroglycerin (Ntg) 0.4 mg Q5M X 3 DOSES PRN SL Prn Chest Pain 12/26/18 20:15 01/25/19 20:14 Ondansetron HCl (Zofran) 4 mg Q6H PRN IVP Nausea & Vomiting 12/27/18 13:45 01/26/19 13:44 12/30/18 09:53 Oxycodone/ Acetaminophen (Percocet 10/325) 1 tab Q4H PRN ORAL Severe Pain (Pain Scale 7-10) 12/28/18 15:30 01/04/19 15:29 01/01/19 09:02 Pantoprazole (Protonix) 40 mg DAILY ORAL 12/27/18 09:00 01/26/19 08:59 01/01/19 09:02 Polyethylene Glycol (Miralax) 17 gm BEDTIME ORAL 12/30/18 21:00 01/29/19 20:59 Polyethylene Glycol (Miralax) 17 gm HSPRN PRN ORAL Constipation 12/26/18 20:15 01/25/19 20:14 Potassium Chloride (K-Dur) 40 meq ONCE ORAL 01/01/19 10:15 01/01/19 11:15 Prochlorperazine (Compazine) 10 mg Q6H PRN IVP Nausea & Vomiting 12/26/18 20:15 01/25/19 20:14 12/29/18 10:42 Sodium Chloride 1,000 ml @ 100 mls/hr Q10H IVLG 12/26/18 21:05 01/25/19 21:04 01/01/19 06:42 Temazepam (Restoril) 7.5 mg HSPRN PRN ORAL Insomnia 12/27/18 15:30 01/03/19 13:44 Zolpidem Tartrate (Ambien) 5 mg HSPRN PRN ORAL Insomnia 12/27/18 13:45 01/03/19 13:44 12/29/18 23:58 Niya Holley MD Jan 01, 2019 10:21
[2019-01-01] MEDS ORDERED: Calcium Gluconate 10% 1 GM in NS 110 ML IVPB SCH (11:00)
--- NOTE | 2019-01-01 11:04 | GI Initial Consult Note ---
History of Present Illness General Date patient seen: Jan 01, 2019 Time patient seen: 11:04 Reason for Hospitalization: Skin Rash/Abscess Referring physician: BRYSON LORENZ Reason for Consultation: CONSTIPATION Present Illness HPI 23 YO Female presents to the ED C/O 11/29 in severity pain, tenderness, swelling and erythema in the right axilla x 1 week. pt. reports having surgery for hidradenitis 4 months ago and reported wound complications after the sutures dehisced and her wound has not closed since. She reports purulent drainage despite proper wound care and abx. Pt. reports prior to surgery she was having frequent infections x 1 year. She denies fevers or chills. She states that she is right hand dominant. Pt. denies trauma or fall. She reports hypersensitivity in the right axilla. She reports movement of the right arm, palpation of the right axilla or rasing her arm exacerbates her pain. No other aggravating or relieving factors. She is not UTD with vaccinations. GI consulted for reported constipation. This is a 23-year-old female patient with history of hidradenitis now status post revision and closure of the right axillary wound. Patient was seen, awake alert oriented x4 no apparent distress. The patient denied any abdominal pain or discomfort at this time. Patient stated she has a history of Crohn's disease, noted that her last flare was approximately 2 years ago. The patient is currently on Remicade, last dose was November 27, scheduled dose next month. The patient stated at the time of evaluation, the patient stated she did not feel constipated. The patient stated her last bowel movement was a day prior to her surgery which is approximately 5 days. Patient is not taking any medication bowel regimen at this time. The patient is on a IMPREGNATING TANK OPERATOR pump. Home Meds Active Scripts Cephalexin (Cephalexin) 500 Mg Tablet, 500 MG ORAL QID for 7 Days, #28 TAB 0 Refills Prov:Antonina Burleson DO 09/28/18 Docusate Sodium* (COLACE*) 100 Mg Capsule, 200 MG ORAL TWICE A DAY for 30 Days, #60 CAP 0 Refills Prov:Antonina Burleson DO 09/28/18 Doxycycline Hyclate (DOXYCYCLINE HYCLATE) 100 Mg Capsule, 100 MG ORAL EVERY 12 HOURS for 7 Days, #14 CAP 0 Refills Prov:Antonina Burleson DO 09/28/18 Reported Medications Aripiprazole* (ABILIFY*) 2 Mg Tablet, 2 MG ORAL DAILY, TAB 12/26/18 Infliximab (Remicade) 100 Mg Vial, 632.761 MG IV EVERY 8 WEEKS, VIAL 09/18/18 Omeprazole Magnesium (PRILOSEC OTC) 20 Mg Tablet.dr, 20 MG ORAL DAILY, TAB 06/12/18 Fluoxetine Hcl* (PROZAC*) 20 Mg Capsule, 40 MG ORAL DAILY, CAP 06/12/18 Aripiprazole* (ABILIFY*) 2 Mg Tablet, 2.5 MG ORAL DAILY, TAB 05/24/18 Med list reviewed/reconciled: Yes Allergies: Coded Allergies: SILVER (Verified Allergy, Mild, 06/13/18) AZATHIOPRINE (Verified Allergy, Unknown, 05/15/18) DOCUSATE (Verified Allergy, Unknown, 05/15/18) ok for oral LATEX (Verified Allergy, Unknown, 05/15/18) VANCOMYCIN (Verified Allergy, Unknown, 05/15/18) BISACODYL (Verified Adverse Reaction, Severe, Rash, 05/15/18) Uncoded Allergies: IODINE CONTRAST (Allergy, Unknown, 05/15/18) TAPE (Allergy, Unknown, 05/15/18) Patient History History Provided By: Patient, Medical Record [facility] Narrative Past Medical History: Crohn's s/p colectomy in 2014 on Remicade, Depression, Anxiety Past Surgical History: hydradenitis, colectomy in 2014 Social history: Denies smoking cigarettes, marijuana or other illicit drugs. 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 Family history: Depression and anxiety, cousin with Crohn's Social History: Denies: smoking, alcohol use, drug use, other Review of Systems All Other Systems: negative except mentioned in HPI Physical Exam Vital Signs Date Time Temp Pulse Resp B/P (MAP) Pulse Ox O2 Delivery O2 Flow Rate FiO2 12/28/18 08:00 99.1 98 19 115/69 (84) 95 12/28/18 09:00 Room Air 12/28/18 18:50 2.0 28 Sp02 EP Interpretation: reviewed, normal Labs Laboratory Tests Test 01/01/19 07:30 White Blood Count 8.7 K/UL (4.8-10.8) Red Blood Count 3.80 M/UL (4.20-5.40) L Hemoglobin 10.4 G/DL (12.0-16.0) L Hematocrit 32.2 % (37.0-47.0) L Mean Corpuscular Volume 85 FL (80-99) Mean Corpuscular Hemoglobin 27.4 PG (27.0-31.0) Mean Corpuscular Hemoglobin Concent 32.3 G/DL (32.0-36.0) Red Cell Distribution Width 13.2 % (11.6-14.8) Platelet Count 236 K/UL (150-450) Mean Platelet Volume 5.5 FL (6.5-10.1) L Neutrophils (%) (Auto) 51.7 % (45.0-75.0) Lymphocytes (%) (Auto) 34.5 % (20.0-45.0) Monocytes (%) (Auto) 9.2 % (1.0-10.0) Eosinophils (%) (Auto) 3.7 % (0.0-3.0) H Basophils (%) (Auto) 0.9 % (0.0-2.0) Sodium Level 142 MMOL/L (136-145) Potassium Level 3.6 MMOL/L (3.5-5.1) Chloride Level 107 MMOL/L (98-107) Carbon Dioxide Level 34 MMOL/L (21-32) H Anion Gap 2 mmol/L (5-15) L Blood Urea Nitrogen 5 mg/dL (7-18) L Creatinine 0.7 MG/DL (0.55-1.30) Estimat Glomerular Filtration Rate > 60 mL/min (>60) Glucose Level 98 MG/DL (74-106) Calcium Level 7.5 MG/DL (8.5-10.1) L Magnesium Level 1.6 MG/DL (1.8-2.4) L General Appearance: well appearing, no apparent distress, alert Head: normocephalic EENT: PERRL/EOMI, normal ENT inspection Neck: supple Respiratory: normal breath sounds, no respiratory distress Cardiovascular: normal rate Gastrointestinal: normal inspection, non tender, soft, normal bowel sounds, non -distended Rectal: deferred Genitourinary: no CVA tenderness Musculoskeletal: normal inspection, back normal Neurologic: normal inspection, alert, oriented x3, responsive Psychiatric: normal inspection, judgement/insight normal, memory normal Skin: normal inspection, normal color, no rash, warm/dry, palpation normal, well hydrated Lymphatic: normal inspection, no adenopathy Current Medications Current Medications Medications (Trade) Dose Ordered Sig/Alix Route PRN Reason Start Time Stop Time Status Last Admin Dose Admin Acetaminophen (Tylenol) 650 mg Q4H PRN ORAL Mild Pain (Pain Scale 1-3) 12/26/18 20:15 01/25/19 20:14 Acetaminophen (Tylenol) 650 mg Q4H PRN ORAL FEVER (temp>100.5F) 12/27/18 13:45 01/26/19 13:44 Acetaminophen (Tylenol) 650 mg Q4H PRN RECTAL Mild Pain (Pain Scale 1-3) 12/26/18 20:15 01/25/19 20:14 Acetaminophen (Tylenol) 650 mg Q4H PRN RECTAL fever 12/26/18 20:15 01/25/19 20:14 Al Hydroxide/Mg Hydroxide (Mylanta II) 30 ml Q6H PRN ORAL dyspepsia 12/26/18 20:15 01/25/19 20:14 Aripiprazole (Abilify) 2.5 mg DAILY ORAL 12/27/18 09:00 01/26/19 08:59 01/01/19 09:02 Calcium Gluconate 1 gm/Sodium Chloride 120 ml @ 240 mls/hr ONCE IVPB 01/01/19 11:00 01/01/19 13:00 Cefepime HCl 2 gm/ Dextrose 55 ml @ 110 mls/hr EVERY 12 HOURS IVPB 01/01/19 21:00 01/08/19 20:59 Daptomycin 500 mg/ Sodium Chloride 50 ml @ 100 mls/hr Q24H IV 01/01/19 18:00 01/08/19 17:59 Dextrose (Dextrose 50%) 25 ml Q30M PRN IV Hypoglycemia 12/26/18 20:15 01/25/19 20:14 Dextrose (Dextrose 50%) 50 ml Q30M PRN IV Hypoglycemia 12/26/18 20:15 01/25/19 20:14 Diphenhydramine HCl (Benadryl) 12.5 mg Q6H PRN IVP Itching/Pruritis 12/31/18 10:00 01/30/19 09:59 01/01/19 10:22 Fluoxetine HCl (PROzac) 40 mg DAILY ORAL 12/27/18 09:00 01/26/19 08:59 01/01/19 09:02 Heparin Sodium (Porcine) (Heparin 5000 units/ml) 5,000 units EVERY 12 HOURS SUBQ 12/27/18 21:00 01/26/19 20:59 01/01/19 09:06 Hydromorphone HCl 30 ml @ 0 mls/hr Q24H PRN IV For Pain 12/31/18 10:03 01/02/19 10:02 12/31/18 13:20 Hydromorphone HCl (Dilaudid) 1 mg Q6H PRN IVP Breakthrough Pain 12/28/18 15:30 01/04/19 15:29 01/01/19 06:42 Lorazepam (Ativan 2mg/ml 1ml) 0.5 mg Q4H PRN IV For Anxiety 12/26/18 20:15 01/02/19 20:14 12/30/18 16:24 Lorazepam (Ativan) 1 mg Q4H PRN ORAL For Anxiety 12/26/18 20:15 01/02/19 20:14 Magnesium Hydroxide (Mom) 30 ml HSPRN PRN ORAL Constipation 12/26/18 20:15 01/25/19 20:14 Magnesium Sulfate 100 ml @ 100 mls/hr Q1H IVPB 01/01/19 10:15 01/01/19 12:14 01/01/19 10:22 Methocarbamol (Robaxin) 500 mg Q4H PRN ORAL spasms 12/26/18 20:15 01/25/19 20:14 Metoclopramide HCl (Reglan) 10 mg Q6H PRN IVP Nausea & Vomiting 12/26/18 20:15 01/25/19 20:14 12/28/18 03:43 Miscellaneous Medication (IMPREGNATING TANK OPERATOR Rate Change) 1 ea DAILY PRN MISC rate change 12/31/18 10:00 01/02/19 09:59 Miscellaneous Medication (IMPREGNATING TANK OPERATOR shift volume) 1 ea Q12HR@0700,1900 MISC 12/31/18 19:00 01/02/19 18:59 01/01/19 07:00 Nitroglycerin (Ntg) 0.4 mg Q5M X 3 DOSES PRN SL Prn Chest Pain 12/26/18 20:15 01/25/19 20:14 Ondansetron HCl (Zofran) 4 mg Q6H PRN IVP Nausea & Vomiting 12/27/18 13:45 01/26/19 13:44 12/30/18 09:53 Oxycodone/ Acetaminophen (Percocet 10/325) 1 tab Q4H PRN ORAL Severe Pain (Pain Scale 7-10) 12/28/18 15:30 01/04/19 15:29 01/01/19 09:02 Pantoprazole (Protonix) 40 mg DAILY ORAL 12/27/18 09:00 01/26/19 08:59 01/01/19 09:02 Polyethylene Glycol (Miralax) 17 gm BEDTIME ORAL 12/30/18 21:00 01/29/19 20:59 Polyethylene Glycol (Miralax) 17 gm HSPRN PRN ORAL Constipation 12/26/18 20:15 01/25/19 20:14 Potassium Chloride (K-Dur) 40 meq ONCE ORAL 01/01/19 10:15 01/01/19 11:15 01/01/19 10:22 Prochlorperazine (Compazine) 10 mg Q6H PRN IVP Nausea & Vomiting 12/26/18 20:15 01/25/19 20:14 12/29/18 10:42 Sodium Chloride 1,000 ml @ 100 mls/hr Q10H IVLG 12/26/18 21:05 01/25/19 21:04 01/01/19 06:42 Temazepam (Restoril) 7.5 mg HSPRN PRN ORAL Insomnia 12/27/18 15:30 01/03/19 13:44 Zolpidem Tartrate (Ambien) 5 mg HSPRN PRN ORAL Insomnia 12/27/18 13:45 01/03/19 13:44 12/29/18 23:58 GI: Plan Problems: (1) Anemia (2) Therapeutic opioid-induced constipation (OIC) (3) Constipation (4) Crohns disease Plan Patient with history of Crohn's disease, on scheduled Remicade next dose in 1 month. Patient has allergy to Colace, refuses MiraLAX. We will start the patient on lactulose twice daily. Consider Movantik versus Relistor as outpatient medications for opiate-induced constipation Advance diet as tolerated Follow-up surgical recommendations Pain management PPI We will follow along with additional recommendations Discussed with Dr. Terrazas. Thank you for this patient referral, we will follow. The patient was seen and examined at bedside and all new and available data was reviewed in the patients chart. I agree with the above findings, impression and plan. (Patient seen earlier today. Signature stamp does not reflect patient encounter time.). - MD [facility] Jan 01, 2019 11:04
[2019-01-01 12:00] VITALS: BP 111/68
--- NOTE | 2019-01-01 12:21 | NUR ---
NURSE NOTES: Patient ambulated once around the unit with physical therapy this morning.
--- NOTE | 2019-01-01 13:25 | General Progress Note ---
Progress Note Progress Note Pt seen and examined. POD # 1 from closure of right axillary wound. Doing well and stable. Pain under control with EMAIL MARKETING MANAGER. Will remove dressings in 48 hours. Continue EMAIL MARKETING MANAGER and IV abx. MD Patty Varma Amir MD Jan 01, 2019 13:25
[2019-01-01] MEDS: Lactulose 10gm/15ml UDC ORAL SCH ×2 (13:28→17:43)
--- NOTE | 2019-01-01 13:42 | NUR ---
*-* INSURANCE *--* ALL CLINICALS HAVE BEEN FAXED TO: [facility] FAX CLINICALS TO [phone] Addendum: 01/01/19 at 1344 by OTONIEL SANCHES CM LVM WITH VIOLETTE TO CALL ME BACK
--- NOTE | 2019-01-01 14:31 | NUR ---
CASE MANAGEMENT:REVIEW 01/01/19 SI: POD #5 AND POD #1 S/P RT AXILLARY DEBRIDEMENT, FLAP ELEVATION AND CLOSURE 99.1 94 16 111/68 93% ON RA H/H-10.4/32.2 CA-7.5 MAG-1.6 IS: IV DAPTOMYCIN Q24HRS IV CEFEPIME Q12 IVF@100/HR ROTARY ENGRAVER DILAUDID : TO MED/SURG 3 [facility] DCP: HOME ~ [place] PLAN: SCHEDULED TO RETURN TO SURGERY TODAY FOR FLAP CLOSURE NEEDS HOME HEALTH ARRANGED UPON DISCHARGE PATIENT AND FATHER CANNOT REMEMBER NAME OF HOME HEALTH ~ MESSAGE LEFT FOR [place]
--- NOTE | 2019-01-01 14:57 | NUR ---
DISCHARGE PLANNING REFERRED TO [facility] T: [phone] F: [phone] [facility] CALLED AND WAS INFORMED THEY CANNOT ACCEPT THIS PATIENT REFERRED TO [facility] T: [phone] F: [phone] AWAIT ACCEPTANCE
[2019-01-01 16:00] VITALS: BP 97/63
[2019-01-01] MEDS: PCA HYDROmorphone 1mg/ml 30 ML IV PRN (17:44)
[2019-01-01] MEDS: DAPTOmycin 500 MG in NS 50 ML IV SCH (17:45)
--- NOTE | 2019-01-01 18:00 | NUR ---
NURSE NOTES: Wasted 15.9ml COSTUME DRAPER Dilaudid with pharmacist. Administered new COSTUME DRAPER dilaudid syringe with 2nd RN.
--- NOTE | 2019-01-01 19:21 | NUR ---
HAND-OFF: Report given to LIA Shannon.
--- NOTE | 2019-01-01 19:30 | NUR ---
NURSE NOTES: Received report & pt from Maricel RN & Peggy RN. Pt lying in bed, a&ox4, on O2 via NC @ 1LPM. No s/s of acute distress & c/o 8/10 pain. Will give PRN pain med when due & pt verbalized understanding. VANESSA drain intact & to bulb suction. Surgical dressing C/D/I. IV site intact with IVF running as ordered. PASTRYCOOK'S ASSISTANT setting checked. Bed in lowest position, call light & PASTRYCOOK'S ASSISTANT pump within reach. Will continue to monitor.
[2019-01-01 20:00] VITALS: BP 116/65
[2019-01-01] MEDS: Miralax 17gm pkt ORAL SCH (20:23)
[2019-01-01] MEDS: Neosporin Oint 15gm TOPIC SCH (21:00)
--- NOTE | 2019-01-01 21:00 | NUR ---
NURSE NOTES: patient refused neosporin and states she would like doctor Brambila to first see the site
[2019-01-02] VITALS: BP 110/67
--- NOTE | 2019-01-02 02:00 | NUR ---
NURSE NOTES: Recieved patient in bed awake A/Ox4, in stable condition IV fluids on R foot patent and asymptomatic, complain of pain level of 8/10 of surgical site pain meds proviided as ordered . J P drain intact dressing clean and intact. Bed locked in low position call light with in reach will continue to monito Addendum: 01/03/19 at 0608 by Hilda Fraser RN please ignore note, incorrect time.
[2019-01-02] MEDS: DiphenhydrAMINE 50mg/ml Inj IVP PRN ×3 (03:50→19:48)
[2019-01-02] MEDS: HYDROmorphone 1mg/ml Carpuject IVP PRN ×3 (03:52→20:45)
[2019-01-02 04:00] VITALS: BP 101/62
[2019-01-02 06:19] LABS: BASOPHILS % (AUTO) 0.9 % (0.0-2.0); EOSINOPHILS % (AUTO) 3.6 % (0.0-3.0); HEMATOCRIT 31.4 % (37.0-47.0); HEMOGLOBIN 10.1 G/DL (12.0-16.0); LYMPHOCYTES % (AUTO) 33.3 % (20.0-45.0); MEAN CORPUSCULAR VOLUME 85 FL (80-99); NEUTROPHILS % (AUTO) 53.1 % (45.0-75.0); PLATELET COUNT 246 K/UL (150-450); RED CELL DISTRIBUTION WIDTH 13.2 % (11.6-14.8); WHITE BLOOD COUNT 8.1 K/UL (4.8-10.8)
[2019-01-02] MEDS ORDERED: Tubing IV Secondary IV ONE (06:37)
[2019-01-02 06:38] LABS: ANION GAP 6 mmol/L (5-15); BLOOD UREA NITROGEN 5 mg/dL (7-18); CALCIUM 7.7 MG/DL (8.5-10.1); CARBON DIOXIDE 30 MMOL/L (21-32); CHLORIDE 107 MMOL/L (98-107); CREATININE 0.7 MG/DL (0.55-1.30); POTASSIUM 3.6 MMOL/L (3.5-5.1); SODIUM 143 MMOL/L (136-145)
[2019-01-02] MEDS: PCA shift volume MISC SCH ×2 (07:10→19:00)
--- NOTE | 2019-01-02 07:15 | NUR ---
HAND-OFF: Report given to LIA Reyes. Pt in stable condition.
--- NOTE | 2019-01-02 07:37 | NUR ---
NURSE NOTES: Received report from Mirtha RN. Patient is asleep during rounds, no acute distress noted. On etC02 monitoring, DIETARY SERVER settings checked and verified against order. IVF running per order. Right axilla VANESSA drain compressed. Safety measures in place. Side rails upx2, bed low and locked, call light within reach.
--- NOTE | 2019-01-02 07:59 | NUR ---
CASE MANAGEMENT:REVIEW 01/02/19 SI: POD #6 AND POD #2 S/P RT AXILLARY DEBRIDEMENT, FLAP ELEVATION AND CLOSURE 98.5 72 18 101/62 98% ON 2L/NC H/H-10.1/31.4 CA-7.7 IS: IV DAPTOMYCIN Q24HRS IV CEFEPIME Q12 IVF@100/HR INSURANCE SALES REPRESENTATIVE DILAUDID LACTULOSE PO TID : TO MED[facility]SURG 3 [facility] DCP: HOME ~ [place] PLAN: PATIENT HAS BEEN REFERRED TO [facility] T: [phone] F: [phone] THEY HAVE ACCEPTED PATIENT AND WILL WORK ON OBTAINING AUTHORIZATION FROM INSURANCE
[2019-01-02 08:00] VITALS: BP 101/62
--- NOTE | 2019-01-02 08:04 | NUR ---
DISCHARGE PLANNING PATIENT HAS BEEN REFERRED TO [facility] T: [phone] F: [phone] THEY HAVE ACCEPTED PATIENT AND WILL WORK ON OBTAINING AUTHORIZATION FROM INSURANCE
[2019-01-02] MEDS: Lactulose 10gm/15ml UDC ORAL SCH ×3 (08:44→17:22)
[2019-01-02] MEDS: Cefepime HCl 2 GM in D5W 55 ML IVPB SCH ×2 (08:44→20:44)
[2019-01-02] MEDS: Heparin 5000 units/ml inj SUBQ SCH ×2 (08:45→20:46)
--- NOTE | 2019-01-02 08:57 | General Progress Note ---
Assessment/Plan Assessment/Plan: (1) Recurrent axillary hidradenitis with active abscess and drainage (2) S/p Radical excision of right axillary tissue (3) Right Axilla pain Patient will be continued on ROLL FORMING MACHINE OPERATOR Dilaudid, Dilaudid IV changed to Q4H PRN and Percocet D/w Dr. Long and he concurred. Subjective Date patient seen: Jan 02, 2019 Allergies: Coded Allergies: SILVER (Verified Allergy, Mild, 06/13/18) AZATHIOPRINE (Verified Allergy, Unknown, 05/15/18) DOCUSATE (Verified Allergy, Unknown, 05/15/18) ok for oral LATEX (Verified Allergy, Unknown, 05/15/18) VANCOMYCIN (Verified Allergy, Unknown, 05/15/18) BISACODYL (Verified Adverse Reaction, Severe, Rash, 05/15/18) Uncoded Allergies: IODINE CONTRAST (Allergy, Unknown, 05/15/18) TAPE (Allergy, Unknown, 05/15/18) Subjective Constitutional: Reports: no symptoms HEENT: Reports: no symptoms Cardiovascular: Reports: no symptoms Respiratory: Reports: no symptoms Gastrointestinal/Abdominal: Reports: no symptoms Genitourinary: Reports: no symptoms Neurologic/Psychiatric: Reports: no symptoms Endocrine: Reports: no symptoms Hematologic/Lymphatic: Reports: no symptoms Subjective Patient is in bed continues to c/o pain using 9.6mg of the ROLL FORMING MACHINE OPERATOR Dilaudid in the last 24hrs. She also has requested the Dilaudid IV and Percocet for breakthrough pain. No new complaints at this time. Objective Last 24 Hour Vital Signs Date Time Temp Pulse Resp B/P (MAP) Pulse Ox O2 Delivery O2 Flow Rate FiO2 01/02/19 08:00 16 94 01/02/19 08:00 98.3 69 16 101/62 (75) 94 01/02/19 07:50 98 Nasal Cannula 2.0 28 01/02/19 04:00 18 98 01/02/19 04:00 98.5 72 18 101/62 (75) 98 01/02/19 00:00 97.4 88 18 110/67 (81) 97 01/02/19 00:00 18 97 01/01/19 20:37 98 Nasal Cannula 2.0 28 01/01/19 20:05 Room Air 01/01/19 20:00 97.6 105 19 116/65 (82) 96 01/01/19 20:00 19 96 01/01/19 18:14 98.4 01/01/19 18:14 98.4 01/01/19 17:44 16 93 01/01/19 16:00 16 93 01/01/19 16:00 98.4 68 18 97/63 (74) 97 01/01/19 14:01 99.1 01/01/19 12:00 16 93 01/01/19 12:00 99.1 94 18 111/68 (82) 95 01/01/19 09:00 Room Air Intake and Output 01/01/19 01/02/19 19:00 07:00 Intake Total 1048 ml 1820 ml Output Total 20 ml Balance 1028 ml 1820 ml Intake Oral 720 ml IV Total 1048 ml 1100 ml Output Drainage Total 20 ml # Voids 5 3 Laboratory Tests 01/02/19 05:30: White Blood Count 8.1, Red Blood Count 3.70L, Hemoglobin 10.1L, Hematocrit 31.4L , Mean Corpuscular Volume 85, Mean Corpuscular Hemoglobin 27.4, Mean Corpuscular Hemoglobin Concent 32.3, Red Cell Distribution Width 13.2, Platelet Count 246, Mean Platelet Volume 5.3L, Neutrophils (%) (Auto) 53.1, Lymphocytes ( %) (Auto) 33.3, Monocytes (%) (Auto) 9.0, Eosinophils (%) (Auto) 3.6H, Basophils (%) (Auto) 0.9, Sodium Level 143, Potassium Level 3.6, Chloride Level 107, Carbon Dioxide Level 30, Anion Gap 6, Blood Urea Nitrogen 5L, Creatinine 0.7, Estimat Glomerular Filtration Rate > 60, Glucose Level 111H, Calcium Level 7.7L, Ionized Calcium (Measured) [Pending], Magnesium Level 1.8 Height (Feet): 5 Height (Inches): 5.00 Weight (Pounds): 201 Objective General Appearance: no apparent distress, alert EENT: PERRL/EOMI, normal ENT inspection Neck: non-tender, normal alignment Respiratory/Chest: lungs clear, normal breath sounds Abdomen: normal bowel sounds, non tender Extremities: other - right axilla bandages noted Edema: no edema noted Generalized Neurologic: alert, oriented x 3 Skin: normal pigmentation Hao Aldana Jan 02, 2019 08:57
[2019-01-02] MEDS: Neosporin Oint 15gm TOPIC SCH (09:00)
[2019-01-02] MEDS ORDERED: Rate Change PCA 1 Each MISC PRN (09:00)
[2019-01-02] MEDS ORDERED: Naloxone 0.4mg/ml Inj IV PRN (09:01)
[2019-01-02] MEDS ORDERED: PCA HYDROmorphone 1mg/ml 30 ML IV PRN (09:03)
--- NOTE | 2019-01-02 09:03 | NUR ---
NURSE NOTES: Contacted Dr. Brambila and informed PUBLIC ADDRESS SYSTEMS MECHANIC Dilaudid to today at 1003. MD gave order to renew PUBLIC ADDRESS SYSTEMS MECHANIC Dilaudid. Order entered.
--- NOTE | 2019-01-02 10:38 | General Progress Note ---
Assessment/Plan Problem List: (1) Depression ICD Codes: F32.9 - Major depressive disorder, single episode, unspecified SNOMED: 32637275 (2) Anxiety ICD Codes: F41.9 - Anxiety disorder, unspecified SNOMED: 09666102 (3) Wound cellulitis ICD Codes: L03.90 - Cellulitis, unspecified SNOMED: 546201072 (4) Wound dehiscence, surgical ICD Codes: T81.31XA - Disruption of external operation (surgical) wound, not elsewhere classified, initial encounter SNOMED: 261879675 Qualifiers: Qualified Codes: T81.31XA - Disruption of external operation (surgical) wound, not elsewhere classified, initial encounter (5) Surgical site infection ICD Codes: T81.49XA - Infection following a procedure, other surgical site, initial encounter SNOMED: 37695956, 169653642 (6) Hidradenitis suppurativa of right axilla ICD Codes: L73.2 - Hidradenitis suppurativa SNOMED: 724787357 (7) Crohns disease ICD Codes: K50.90 - Crohn's disease, unspecified, without complications SNOMED: 65939614 Assessment/Plan: 23 year old female with hx of Hidradenitis suppurativa presents with right axillary wound dehiscence, purulent discharge and wound cellulitis, failed outpatient treatment. she is now pod# 6 s/p right axillary debridement and flap elevation for recurrence of her hidradenitis suppurative. PD #2, flap closure. Hemodynamically stable #R axillary Hidradenitis suppurativa- wound dehiscence and cellulitis with purulent discharge #R groin hidradenitis suppurativa med/surg Dr. Brambila's services and recs appreciated- d/w him may need to address groin involvement during this hospitalization IV antibiotics per ID consult: Daptomycin and cefepime (gm negative and MRSA coverage) f/u OR cultures and sensitivities pain control- seen by pain management consult. follow up recs IV Benadryl for pleuritis Zofran for n/v monitor vitals Blood cultures negative to date, follow up OR cultures #Crohn's- stable. Last Remicade a month ago, gets it every 8 weeks #constipation #N/V- resolved -continue to monitor closely, given history of IBD. -GI consult for constipation appreciated -Started on lactulose, no BM yet but passing flatus #Hypomagnesemia, hypokalemia, hypocalcemia -Replace as needed -ionized calcium is low, will replace all electrolytes. encouraged PO intake #Depression/Anxiety- stable. Continue home fluoxetine, and Aripiprazole. #vte ppx: Heparin #GI ppx: omeprazole Code status: full code I spent 40 minutes on this encounter. > 50% spent on counselling and care coordination. Case d/w Drs. Brabmila and Imani. d/w patient time of this note may not reflect time of encounter Subjective Date patient seen: Jan 02, 2019 ROS Limited/Unobtainable: No Constitutional: Reports: no symptoms, chills, diaphoresis, fever, malaise, weakness, other - pain 08/29, also new groin abscess HEENT: Denies: no symptoms, eye pain, blurred vision, tearing, double vision, ear pain, ear discharge, nose pain, nose congestion, throat pain, throat swelling, mouth pain, mouth swelling, other Cardiovascular: Denies: no symptoms, chest pain, edema, irregular heart rate, lightheadedness, palpitations, syncope, other Respiratory: Denies: no symptoms, cough, orthopnea, shortness of breath, SOB with excertion, SOB at rest, sputum, stridor, wheezing, other Gastrointestinal/Abdominal: Reports: no symptoms, abdomen distended, abdominal pain, black stools, tarry stools, blood in stool, diarrhea, difficulty swallowing, nausea, poor appetite, poor fluid intake, rectal bleeding, vomiting , other Genitourinary: Denies: no symptoms, burning, discharge, frequency, flank pain, hematuria, incontinence, pain, urgency, other Neurologic/Psychiatric: Denies: no symptoms, anxiety, depressed, emotional problems, headache, numbness, paresthesia, pre-existing deficit, seizure, tingling, tremors, weakness, other Endocrine: Denies: no symptoms, excessive sweating, flushing, intolerance to cold, intolerance to heat, increased hunger, increased thirst, increased urine, unexplained weight gain, unexplained weight loss, other Hematologic/Lymphatic: Denies: no symptoms, anemia, easy bleeding, easy bruising, other Allergies: Coded Allergies: SILVER (Verified Allergy, Mild, 06/13/18) AZATHIOPRINE (Verified Allergy, Unknown, 05/15/18) DOCUSATE (Verified Allergy, Unknown, 05/15/18) ok for oral LATEX (Verified Allergy, Unknown, 05/15/18) VANCOMYCIN (Verified Allergy, Unknown, 05/15/18) BISACODYL (Verified Adverse Reaction, Severe, Rash, 05/15/18) Uncoded Allergies: IODINE CONTRAST (Allergy, Unknown, 05/15/18) TAPE (Allergy, Unknown, 05/15/18) Subjective seen and examined. POD #6 s/p initial flap, POD #2 wound closure. VSS. Has a new abscess in R groin area that spontaneously popped, says she gets them before or after her period. Objective Last 24 Hour Vital Signs Date Time Temp Pulse Resp B/P (MAP) Pulse Ox O2 Delivery O2 Flow Rate FiO2 01/02/19 09:00 Room Air 01/02/19 08:00 16 94 01/02/19 08:00 98.3 69 16 101/62 (75) 94 01/02/19 07:50 98 Nasal Cannula 2.0 28 01/02/19 04:00 18 98 01/02/19 04:00 98.5 72 18 101/62 (75) 98 01/02/19 00:00 97.4 88 18 110/67 (81) 97 01/02/19 00:00 18 97 01/01/19 20:37 98 Nasal Cannula 2.0 28 01/01/19 20:05 Room Air 01/01/19 20:00 97.6 105 19 116/65 (82) 96 01/01/19 20:00 19 96 01/01/19 18:14 98.4 01/01/19 18:14 98.4 01/01/19 17:44 16 93 01/01/19 16:00 16 93 01/01/19 16:00 98.4 68 18 97/63 (74) 97 01/01/19 14:01 99.1 01/01/19 12:00 16 93 01/01/19 12:00 99.1 94 18 111/68 (82) 95 Intake and Output 01/01/19 01/02/19 19:00 07:00 Intake Total 1048 ml 1820 ml Output Total 20 ml Balance 1028 ml 1820 ml Intake Oral 720 ml IV Total 1048 ml 1100 ml Output Drainage Total 20 ml # Voids 5 3 Laboratory Tests 01/02/19 05:30: White Blood Count 8.1, Red Blood Count 3.70L, Hemoglobin 10.1L, Hematocrit 31.4L , Mean Corpuscular Volume 85, Mean Corpuscular Hemoglobin 27.4, Mean Corpuscular Hemoglobin Concent 32.3, Red Cell Distribution Width 13.2, Platelet Count 246, Mean Platelet Volume 5.3L, Neutrophils (%) (Auto) 53.1, Lymphocytes ( %) (Auto) 33.3, Monocytes (%) (Auto) 9.0, Eosinophils (%) (Auto) 3.6H, Basophils (%) (Auto) 0.9, Sodium Level 143, Potassium Level 3.6, Chloride Level 107, Carbon Dioxide Level 30, Anion Gap 6, Blood Urea Nitrogen 5L, Creatinine 0.7, Estimat Glomerular Filtration Rate > 60, Glucose Level 111H, Calcium Level 7.7L, Ionized Calcium (Measured) 1.09L, Magnesium Level 1.8 Height (Feet): 5 Height (Inches): 5.00 Weight (Pounds): 201 Objective General Appearance: no apparent distress, alert, non-toxic Head: normocephalic, atraumatic Eyes: bilateral eye normal inspection, bilateral eye PERRL Neck: full range of motion Respiratory: lungs clear, normal breath sounds, speaking full sentences Cardiovascular: regular rate, rhythm, no m/r/g gastrointestinal: obese, soft, healed laparoscopic scars, non tender, non distended Musculoskeletal: decreased range of motion right arm due to pain Genitourinary: healed scars from previous hidradenitis, new abscess right groin adjacent to labia majora, extremely tender Neurologic: alert, oriented x3, grossly normal Psychiatric: judgement/insight normal Skin: Right axilla dressing: C/D/Isidro Manriquez M.D. Jan 02, 2019 10:38
--- NOTE | 2019-01-02 10:40 | General Progress Note ---
Progress Note Progress Note Pt seen and examined. POD# 2 from wound closure. Dressings CDI Has a new large groin abscess for the past few days , it spontaneously drained and the patient has been in pain. May need that area addressed on this hospital stay. Will reassess tomorrow and see. Continue IV abx and pain meds. Sagar Campbell MD, MD Jan 02, 2019 10:40
[2019-01-02 12:00] VITALS: BP 103/65
--- NOTE | 2019-01-02 12:23 | NUR ---
CASE MANAGEMENT:REVIEW RECEIVED CALL FROM [facility] STATING THEY ARE ACCEPTING PATIENT [facility] T: [phone] F: [phone] ANTICIPATED DISCHARGE IS MONDAY HOME [facility] NEEDS TO BE NOTIFIED OF TIME OF DISCHARGE AND THEY NEED WOUND CARE INSTRUCTIONS FAXED TO THEM PRIOR TO DISCHARGE
--- NOTE | 2019-01-02 12:55 | GI Progress Note ---
Assessment/Plan Problems: (1) Therapeutic opioid-induced constipation (OIC) ICD Codes: K59.03 - Drug induced constipation; T40.2X5A - Adverse effect of other opioids, initial encounter SNOMED: 227065738044552 (2) Constipation ICD Codes: K59.00 - Constipation, unspecified SNOMED: 24495659 (3) Anemia ICD Codes: D64.9 - Anemia, unspecified SNOMED: 127558510 (4) Crohns disease ICD Codes: K50.90 - Crohn's disease, unspecified, without complications SNOMED: 87824653 (5) Anxiety ICD Codes: F41.9 - Anxiety disorder, unspecified SNOMED: 75077047 (6) Opioid use ICD Codes: F11.90 - Opioid use, unspecified, uncomplicated SNOMED: 893239193 Status: unchanged Status Narrative Discussed with Dr. Terrazas. Assessment/Plan Patient with history of Crohn's disease, on scheduled Remicade next dose in 1 month. Patient has allergy to Colace, refuses MiraLAX. We will start the patient on lactulose twice daily. Consider Movantik versus Relistor as outpatient medications for opiate-induced constipation start Relistor SQ QOD tomorrow if patient has no BM Advance diet as tolerated Follow-up surgical recommendations Pain management PPI We will follow along with additional recommendations The patient was seen and examined at bedside and all new and available data was reviewed in the patients chart. I agree with the above findings, impression and plan. (Patient seen earlier today. Signature stamp does not reflect patient encounter time.). - Moshe Terrazas MD Subjective Subjective no reported BM Objective Last 24 Hour Vital Signs Date Time Temp Pulse Resp B/P (MAP) Pulse Ox O2 Delivery O2 Flow Rate FiO2 01/02/19 09:00 Room Air 01/02/19 08:00 16 94 01/02/19 08:00 98.3 69 16 101/62 (75) 94 01/02/19 07:50 98 Nasal Cannula 2.0 28 01/02/19 04:00 18 98 01/02/19 04:00 98.5 72 18 101/62 (75) 98 01/02/19 00:00 97.4 88 18 110/67 (81) 97 01/02/19 00:00 18 97 01/01/19 20:37 98 Nasal Cannula 2.0 28 01/01/19 20:05 Room Air 01/01/19 20:00 97.6 105 19 116/65 (82) 96 01/01/19 20:00 19 96 01/01/19 18:14 98.4 01/01/19 18:14 98.4 01/01/19 17:44 16 93 01/01/19 16:00 16 93 01/01/19 16:00 98.4 68 18 97/63 (74) 97 01/01/19 14:01 99.1 Intake and Output 01/01/19 01/02/19 19:00 07:00 Intake Total 1048 ml 1820 ml Output Total 20 ml Balance 1028 ml 1820 ml Intake Oral 720 ml IV Total 1048 ml 1100 ml Output Drainage Total 20 ml # Voids 5 3 Laboratory Tests Test 01/02/19 05:30 White Blood Count 8.1 K/UL (4.8-10.8) Red Blood Count 3.70 M/UL (4.20-5.40) L Hemoglobin 10.1 G/DL (12.0-16.0) L Hematocrit 31.4 % (37.0-47.0) L Mean Corpuscular Volume 85 FL (80-99) Mean Corpuscular Hemoglobin 27.4 PG (27.0-31.0) Mean Corpuscular Hemoglobin Concent 32.3 G/DL (32.0-36.0) Red Cell Distribution Width 13.2 % (11.6-14.8) Platelet Count 246 K/UL (150-450) Mean Platelet Volume 5.3 FL (6.5-10.1) L Neutrophils (%) (Auto) 53.1 % (45.0-75.0) Lymphocytes (%) (Auto) 33.3 % (20.0-45.0) Monocytes (%) (Auto) 9.0 % (1.0-10.0) Eosinophils (%) (Auto) 3.6 % (0.0-3.0) H Basophils (%) (Auto) 0.9 % (0.0-2.0) Sodium Level 143 MMOL/L (136-145) Potassium Level 3.6 MMOL/L (3.5-5.1) Chloride Level 107 MMOL/L (98-107) Carbon Dioxide Level 30 MMOL/L (21-32) Anion Gap 6 mmol/L (5-15) Blood Urea Nitrogen 5 mg/dL (7-18) L Creatinine 0.7 MG/DL (0.55-1.30) Estimat Glomerular Filtration Rate > 60 mL/min (>60) Glucose Level 111 MG/DL (74-106) H Calcium Level 7.7 MG/DL (8.5-10.1) L Ionized Calcium (Measured) 1.09 mmol/L (1.10-1.35) L Magnesium Level 1.8 MG/DL (1.8-2.4) Height (Feet): 5 Height (Inches): 5.00 Weight (Pounds): 201 General Appearance: no apparent distress, alert Cardiovascular: normal rate Respiratory/Chest: normal breath sounds, no respiratory distress Abdominal Exam: normal bowel sounds, non tender, soft Extremities: normal range of motion, non-tender Joy Malone NP Jan 02, 2019 12:55
[2019-01-02] MEDS ORDERED: Calcium Gluconate 1gm/10ml vial IVP SCH (13:00)
[2019-01-02 16:00] VITALS: BP 101/66
--- NOTE | 2019-01-02 16:44 | Infectious Diseases Prog Note ---
Assessment/Plan Assessment/Plan ASSESSMENT AND PLAN: 1. right axilla wound infection/abscess/cellulitis, mild leukocytosis, hidradenitis suppurativa, new right groin abscess that spontaneously drained - s/p debridement and closure - daptomycin and cefepime for now - monitor labs, ck - surgery f/u - Dr. Brambila 2. Depression. 3. Anxiety. 4. Crohn's disease. 5. History of colectomy. On Remicade. 6. Hidradenitis suppurativa. 7. History of colectomy. 8. Allergies to azathioprine, bisacodyl, docusate, iodine, vancomycin, latex, and silver tape. 9. Family history is positive for depression, anxiety, and Crohn's. 10. Social history is negative. 11. MAR was noted. 12. Case was discussed with RN. 13. Case was discussed with Dr. Johnson. 14. Continue treatment per primary consultants. Subjective Constitutional: Denies: fever HEENT: Denies: congestion Respiratory: Denies: shortness of breath Cardiovascular: Denies: chest pain Gastrointestinal/Abdominal: Denies: nausea, vomiting, diarrhea Neurologic: Denies: headache Psychiatric: Denies: depression Skin: Denies: rash Hematologic: Denies: bleeding Musculoskeletal: Denies: pain Allergies: Coded Allergies: SILVER (Verified Allergy, Mild, 06/13/18) AZATHIOPRINE (Verified Allergy, Unknown, 05/15/18) DOCUSATE (Verified Allergy, Unknown, 05/15/18) ok for oral LATEX (Verified Allergy, Unknown, 05/15/18) VANCOMYCIN (Verified Allergy, Unknown, 05/15/18) BISACODYL (Verified Adverse Reaction, Severe, Rash, 05/15/18) Uncoded Allergies: IODINE CONTRAST (Allergy, Unknown, 05/15/18) TAPE (Allergy, Unknown, 05/15/18) Objective Vital Signs Last 24 Hour Vital Signs Date Time Temp Pulse Resp B/P (MAP) Pulse Ox O2 Delivery O2 Flow Rate FiO2 01/02/19 12:00 16 98 01/02/19 12:00 98.2 82 16 103/65 (78) 98 01/02/19 09:00 Room Air 01/02/19 08:00 16 94 01/02/19 08:00 98.3 69 16 101/62 (75) 94 01/02/19 07:50 98 Nasal Cannula 2.0 28 01/02/19 04:00 18 98 01/02/19 04:00 98.5 72 18 101/62 (75) 98 01/02/19 00:00 97.4 88 18 110/67 (81) 97 01/02/19 00:00 18 97 01/01/19 20:37 98 Nasal Cannula 2.0 28 01/01/19 20:05 Room Air 01/01/19 20:00 97.6 105 19 116/65 (82) 96 01/01/19 20:00 19 96 01/01/19 18:14 98.4 01/01/19 18:14 98.4 01/01/19 17:44 16 93 Height (Feet): 5 Height (Inches): 5.00 Weight (Pounds): 201 General Appearance: no acute distress HEENT: normocephalic, atraumatic, anicteric, mucous membranes moist Respiratory/Chest: lungs clear, normal breath sounds, no respiratory distress, no accessory muscle use Cardiovascular: normal rate, regular rhythm, no gallop/murmur, no JVD Abdomen: normal bowel sounds, soft, non tender, non distended Genitourinary: other - no santana Extremities: no cyanosis Skin: no rash Neurologic/Psychiatric: computer programming manager II-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 grossly normal, alert, oriented x 3, responsive Lymphatic: no neck adenopathy Musculoskeletal: no effusion Objective none Microbiology Date/Time Source Procedure Growth Status 12/26/18 19:50 Blood Blood Culture - Final NO GROWTH AFTER 5 DAYS Complete Laboratory Tests Test 01/02/19 05:30 White Blood Count 8.1 K/UL (4.8-10.8) Red Blood Count 3.70 M/UL (4.20-5.40) L Hemoglobin 10.1 G/DL (12.0-16.0) L Hematocrit 31.4 % (37.0-47.0) L Mean Corpuscular Volume 85 FL (80-99) Mean Corpuscular Hemoglobin 27.4 PG (27.0-31.0) Mean Corpuscular Hemoglobin Concent 32.3 G/DL (32.0-36.0) Red Cell Distribution Width 13.2 % (11.6-14.8) Platelet Count 246 K/UL (150-450) Mean Platelet Volume 5.3 FL (6.5-10.1) L Neutrophils (%) (Auto) 53.1 % (45.0-75.0) Lymphocytes (%) (Auto) 33.3 % (20.0-45.0) Monocytes (%) (Auto) 9.0 % (1.0-10.0) Eosinophils (%) (Auto) 3.6 % (0.0-3.0) H Basophils (%) (Auto) 0.9 % (0.0-2.0) Sodium Level 143 MMOL/L (136-145) Potassium Level 3.6 MMOL/L (3.5-5.1) Chloride Level 107 MMOL/L (98-107) Carbon Dioxide Level 30 MMOL/L (21-32) Anion Gap 6 mmol/L (5-15) Blood Urea Nitrogen 5 mg/dL (7-18) L Creatinine 0.7 MG/DL (0.55-1.30) Estimat Glomerular Filtration Rate > 60 mL/min (>60) Glucose Level 111 MG/DL (74-106) H Calcium Level 7.7 MG/DL (8.5-10.1) L Ionized Calcium (Measured) 1.09 mmol/L (1.10-1.35) L Magnesium Level 1.8 MG/DL (1.8-2.4) Current Medications Medications (Trade) Dose Ordered Sig/Alix Route PRN Reason Start Time Stop Time Status Last Admin Dose Admin Acetaminophen (Tylenol) 650 mg Q4H PRN ORAL Mild Pain (Pain Scale 1-3) 12/26/18 20:15 01/25/19 20:14 Acetaminophen (Tylenol) 650 mg Q4H PRN ORAL FEVER (temp>100.5F) 12/27/18 13:45 01/26/19 13:44 Acetaminophen (Tylenol) 650 mg Q4H PRN RECTAL Mild Pain (Pain Scale 1-3) 12/26/18 20:15 01/25/19 20:14 Acetaminophen (Tylenol) 650 mg Q4H PRN RECTAL fever 12/26/18 20:15 01/25/19 20:14 Al Hydroxide/Mg Hydroxide (Mylanta II) 30 ml Q6H PRN ORAL dyspepsia 12/26/18 20:15 01/25/19 20:14 Aripiprazole (Abilify) 2.5 mg DAILY ORAL 12/27/18 09:00 01/26/19 08:59 01/02/19 08:44 Cefepime HCl 2 gm/ Dextrose 55 ml @ 110 mls/hr EVERY 12 HOURS IVPB 01/01/19 21:00 01/08/19 20:59 01/02/19 08:44 Daptomycin 500 mg/ Sodium Chloride 50 ml @ 100 mls/hr Q24H IV 01/01/19 18:00 01/08/19 17:59 01/01/19 17:45 Dextrose (Dextrose 50%) 25 ml Q30M PRN IV Hypoglycemia 12/26/18 20:15 01/25/19 20:14 Dextrose (Dextrose 50%) 50 ml Q30M PRN IV Hypoglycemia 12/26/18 20:15 01/25/19 20:14 Diphenhydramine HCl (Benadryl) 12.5 mg Q6H PRN IVP Itching/Pruritis 12/31/18 10:00 01/30/19 09:59 01/02/19 11:59 Fluoxetine HCl (PROzac) 40 mg DAILY ORAL 12/27/18 09:00 01/26/19 08:59 01/02/19 08:44 Heparin Sodium (Porcine) (Heparin 5000 units/ml) 5,000 units EVERY 12 HOURS SUBQ 12/27/18 21:00 01/26/19 20:59 01/02/19 08:45 Hydromorphone HCl 30 ml @ 0 mls/hr Q24H PRN IV For Pain 01/02/19 09:03 01/04/19 09:02 Hydromorphone HCl (Dilaudid) 1 mg Q4H PRN IVP Breakthrough Pain 01/02/19 09:00 01/09/19 08:59 01/02/19 14:12 Lactulose (Cephulac) 10 gm THREE TIMES A DAY ORAL 01/01/19 13:00 01/31/19 12:59 01/02/19 12:38 Lorazepam (Ativan 2mg/ml 1ml) 0.5 mg Q4H PRN IV For Anxiety 12/26/18 20:15 01/02/19 20:14 12/30/18 16:24 Lorazepam (Ativan) 1 mg Q4H PRN ORAL For Anxiety 12/26/18 20:15 01/02/19 20:14 01/01/19 23:36 Magnesium Hydroxide (Mom) 30 ml HSPRN PRN ORAL Constipation 12/26/18 20:15 01/25/19 20:14 Methocarbamol (Robaxin) 500 mg Q4H PRN ORAL spasms 12/26/18 20:15 01/25/19 20:14 Methylnaltrexone Frederick (Relistor) 12 mg QOD SUBQ 01/03/19 09:00 02/02/19 08:59 Metoclopramide HCl (Reglan) 10 mg Q6H PRN IVP Nausea & Vomiting 12/26/18 20:15 01/25/19 20:14 12/28/18 03:43 Miscellaneous Medication (COMMITTEE MEMBER Rate Change) 1 ea DAILY PRN MISC rate change 01/02/19 09:00 01/04/19 08:59 Miscellaneous Medication (COMMITTEE MEMBER shift volume) 1 ea Q12HR@0700,1900 MISC 01/02/19 19:00 01/04/19 18:59 Naloxone HCl (Narcan) 0.1 mg Q1M PRN IV RR<10/min OR SBP<90 mmHg 01/02/19 09:01 01/03/19 04:17 Neomycin/ Polymyxin/ Bacitracin (Neosporin Oint 15gm) 1 applic DAILY TOPIC 01/01/19 21:00 01/31/19 20:59 Nitroglycerin (Ntg) 0.4 mg Q5M X 3 DOSES PRN SL Prn Chest Pain 12/26/18 20:15 01/25/19 20:14 Ondansetron HCl (Zofran) 4 mg Q6H PRN IVP Nausea & Vomiting 12/27/18 13:45 01/26/19 13:44 12/30/18 09:53 Oxycodone/ Acetaminophen (Percocet 10/325) 1 tab Q4H PRN ORAL Severe Pain (Pain Scale 7-10) 12/28/18 15:30 01/04/19 15:29 01/02/19 11:58 Pantoprazole (Protonix) 40 mg DAILY ORAL 12/27/18 09:00 01/26/19 08:59 01/02/19 08:44 Polyethylene Glycol (Miralax) 17 gm BEDTIME ORAL 12/30/18 21:00 01/29/19 20:59 01/01/19 20:23 Polyethylene Glycol (Miralax) 17 gm HSPRN PRN ORAL Constipation 12/26/18 20:15 01/25/19 20:14 Prochlorperazine (Compazine) 10 mg Q6H PRN IVP Nausea & Vomiting 12/26/18 20:15 01/25/19 20:14 12/29/18 10:42 Sodium Chloride 1,000 ml @ 100 mls/hr Q10H IVLG 12/26/18 21:05 01/25/19 21:04 01/02/19 14:12 Temazepam (Restoril) 7.5 mg HSPRN PRN ORAL Insomnia 12/27/18 15:30 01/03/19 13:44 Zolpidem Tartrate (Ambien) 5 mg HSPRN PRN ORAL Insomnia 12/27/18 13:45 01/03/19 13:44 12/29/18 23:58 Niya Holley MD Jan 02, 2019 16:44
--- NOTE | 2019-01-02 17:49 | NUR ---
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 18.8mL taken to pharmacy and wasted with pharmacist.
[2019-01-02] MEDS: LORazepam Inj 2mg/ml 1ml IV PRN (18:09)
[2019-01-02] MEDS: DAPTOmycin 500 MG in NS 50 ML IV SCH (18:09)
--- NOTE | 2019-01-02 19:31 | NUR ---
HAND-OFF: Report given to Mirtha FITZGERALD.
--- NOTE | 2019-01-02 19:45 | NUR ---
NURSE NOTES: Recieved patient in bed awake A/Ox4, in stable condition IV fluids on R foot patent and asymptomatic, complain of pain level of 8/10 of surgical site pain meds proviided as ordered . J P drain intact dressing clean and intact. Bed locked in low position call light with in reach will continue to monito
[2019-01-02 20:00] VITALS: BP 105/67
[2019-01-02] MEDS: Miralax 17gm pkt ORAL SCH (21:00)
[2019-01-03] VITALS: BP 92/54
[2019-01-03] MEDS: HYDROmorphone 1mg/ml Carpuject IVP PRN ×4 (00:51→21:15)
[2019-01-03] MEDS: DiphenhydrAMINE 50mg/ml Inj IVP PRN ×3 (02:34→17:50)
[2019-01-03 04:00] VITALS: BP 99/63
[2019-01-03 06:27] LABS: BASOPHILS % (AUTO) 1.7 % (0.0-2.0); EOSINOPHILS % (AUTO) 3.5 % (0.0-3.0); HEMATOCRIT 31.6 % (37.0-47.0); HEMOGLOBIN 10.2 G/DL (12.0-16.0); LYMPHOCYTES % (AUTO) 34.7 % (20.0-45.0); MEAN CORPUSCULAR VOLUME 86 FL (80-99); NEUTROPHILS % (AUTO) 52.1 % (45.0-75.0); PLATELET COUNT 252 K/UL (150-450); RED BLOOD COUNT 3.67 M/UL (4.20-5.40); RED CELL DISTRIBUTION WIDTH 13.7 % (11.6-14.8); WHITE BLOOD COUNT 7.9 K/UL (4.8-10.8)
[2019-01-03 06:56] LABS: ALANINE AMINOTRANSFERASE 19 U/L (12-78); ALBUMIN 2.4 G/DL (3.4-5.0); ALBUMIN/GLOBULIN RATIO 0.7 (1.0-2.7); ALKALINE PHOSPHATASE 50 U/L (46-116); ANION GAP 4 mmol/L (5-15); ASPARTATE AMINO TRANSFERASE 19 U/L (15-37); BILIRUBIN,TOTAL 0.1 MG/DL (0.2-1.0); BLOOD UREA NITROGEN 4 mg/dL (7-18); CALCIUM 7.8 MG/DL (8.5-10.1); CARBON DIOXIDE 31 MMOL/L (21-32); CHLORIDE 103 MMOL/L (98-107); CREATININE 0.8 MG/DL (0.55-1.30); SODIUM 138 MMOL/L (136-145)
[2019-01-03] MEDS: PCA shift volume MISC SCH ×2 (07:12→19:00)
[2019-01-03] MEDS ORDERED: LORazepam 1mg tab ORAL PRN (07:15)
--- NOTE | 2019-01-03 07:16 | NUR ---
HAND-OFF: Report given to LIA Hernandez. Rounds done. Received an order to renew Ativan 1mg PO Q4HR PRN for anxiety by Dr. Johnson
[2019-01-03 08:00] VITALS: BP 104/65
--- NOTE | 2019-01-03 08:09 | NUR ---
NURSE NOTES: Pt sitting up in bed drowsy " Do I have anything due, I will take anything" Pt cont on OUTPATIENT CODER , > rfp writer asked if she was in pain, " Whatever you have to give me" Call light is in reach. Pt will be monitored for over sedation 2 to use of anti anxiety and pain mediations
[2019-01-03 08:10] LABS: CREATINE KINASE 41 U/L (26-308)
[2019-01-03] MEDS: Heparin 5000 units/ml inj SUBQ SCH ×2 (08:30→20:32)
[2019-01-03] MEDS: Cefepime HCl 2 GM in D5W 55 ML IVPB SCH ×2 (08:34→20:30)
[2019-01-03] MEDS: Lactulose 10gm/15ml UDC ORAL SCH ×3 (08:34→17:19)
[2019-01-03] MEDS: Neosporin Oint 15gm TOPIC SCH (09:00)
--- NOTE | 2019-01-03 09:54 | General Progress Note ---
Assessment/Plan Assessment/Plan: (1) Recurrent axillary hidradenitis with active abscess and drainage (2) S/p Radical excision of right axillary tissue (3) Right Axilla pain Patient will be continued on CONSULTING PROPERTY MANAGER Dilaudid, Dilaudid IV changed to Q4H PRN and Percocet D/w Dr. Long and he concurred. Subjective Date patient seen: Jan 03, 2019 Time patient seen: 09:45 - am Allergies: Coded Allergies: SILVER (Verified Allergy, Mild, 06/13/18) AZATHIOPRINE (Verified Allergy, Unknown, 05/15/18) DOCUSATE (Verified Allergy, Unknown, 05/15/18) ok for oral LATEX (Verified Allergy, Unknown, 05/15/18) VANCOMYCIN (Verified Allergy, Unknown, 05/15/18) BISACODYL (Verified Adverse Reaction, Severe, Rash, 05/15/18) Uncoded Allergies: IODINE CONTRAST (Allergy, Unknown, 05/15/18) TAPE (Allergy, Unknown, 05/15/18) Subjective Constitutional: Reports: no symptoms HEENT: Reports: no symptoms Cardiovascular: Reports: no symptoms Respiratory: Reports: no symptoms Gastrointestinal/Abdominal: Reports: no symptoms Genitourinary: Reports: no symptoms Neurologic/Psychiatric: Reports: no symptoms Endocrine: Reports: no symptoms Hematologic/Lymphatic: Reports: no symptoms Subjective Patient is in bed continues to c/o pain using 16.8mg of the CONSULTING PROPERTY MANAGER Dilaudid in the last 24hrs. She also has requested the Dilaudid IV 4 doses and Percocet 3 doses for breakthrough pain. Stating that her pain at this time is severe due to dressing being removed waiting for surgeon to asses if drainage can be removed. D/w nurse once drainage is removed will try to discontinue CONSULTING PROPERTY MANAGER. Pt seems to understand. Objective Last 24 Hour Vital Signs Date Time Temp Pulse Resp B/P (MAP) Pulse Ox O2 Delivery O2 Flow Rate FiO2 01/03/19 04:00 98.6 94 19 99/63 (75) 94 01/03/19 04:00 18 95 01/03/19 00:00 98.8 83 18 92/54 (67) 94 01/03/19 00:00 18 94 01/02/19 21:00 Room Air 01/02/19 20:00 98.6 74 17 105/67 (80) 99 01/02/19 20:00 17 95 11/13/19 19:42 98 Nasal Cannula 2.0 28 01/02/19 16:00 98.9 80 16 101/66 (78) 98 01/02/19 16:00 16 98 01/02/19 12:00 16 98 01/02/19 12:00 98.2 82 16 103/65 (78) 98 Intake and Output 01/02/19 01/03/19 19:00 07:00 Intake Total 1855 ml 1580 ml Output Total 2 ml 5 ml Balance 1853 ml 1575 ml Intake Oral 550 ml 480 ml IV Total 1305 ml 1100 ml Output Drainage Total 2 ml 5 ml # Voids 3 3 Laboratory Tests 01/03/19 04:30: White Blood Count 7.9, Red Blood Count 3.67L, Hemoglobin 10.2L, Hematocrit 31.6L , Mean Corpuscular Volume 86, Mean Corpuscular Hemoglobin 27.7, Mean Corpuscular Hemoglobin Concent 32.2, Red Cell Distribution Width 13.7, Platelet Count 252, Mean Platelet Volume 4.6L, Neutrophils (%) (Auto) 52.1, Lymphocytes ( %) (Auto) 34.7, Monocytes (%) (Auto) 8.0, Eosinophils (%) (Auto) 3.5H, Basophils (%) (Auto) 1.7, Sodium Level 138, Potassium Level 4.0, Chloride Level 103, Carbon Dioxide Level 31, Anion Gap 4L, Blood Urea Nitrogen 4L, Creatinine 0.8, Estimat Glomerular Filtration Rate > 60, Glucose Level 90, Calcium Level 7.8L, Magnesium Level 1.9, Total Bilirubin 0.1L, Aspartate Amino Transf (AST/ SGOT) 19, Alanine Aminotransferase (ALT/SGPT) 19, Alkaline Phosphatase 50, Total Creatine Kinase 41, Total Protein 5.9L, Albumin 2.4L, Globulin 3.5, Albumin/Globulin Ratio 0.7L Height (Feet): 5 Height (Inches): 5.00 Weight (Pounds): 201 Objective General Appearance: no apparent distress, alert EENT: PERRL/EOMI, normal ENT inspection Neck: non-tender, normal alignment Respiratory/Chest: lungs clear, normal breath sounds Abdomen: normal bowel sounds, non tender Extremities: other - right axilla bandages noted Edema: no edema noted Generalized Neurologic: alert, oriented x 3 Skin: normal pigmentation Hao Aldana Jan 03, 2019 09:54
--- NOTE | 2019-01-03 10:28 | General Progress Note ---
Assessment/Plan Problem List: (1) Depression ICD Codes: F32.9 - Major depressive disorder, single episode, unspecified SNOMED: 58696506 (2) Anxiety ICD Codes: F41.9 - Anxiety disorder, unspecified SNOMED: 74020830 (3) Wound cellulitis ICD Codes: L03.90 - Cellulitis, unspecified SNOMED: 671211995 (4) Wound dehiscence, surgical ICD Codes: T81.31XA - Disruption of external operation (surgical) wound, not elsewhere classified, initial encounter SNOMED: 329252092 Qualifiers: Qualified Codes: T81.31XA - Disruption of external operation (surgical) wound, not elsewhere classified, initial encounter (5) Surgical site infection ICD Codes: T81.49XA - Infection following a procedure, other surgical site, initial encounter SNOMED: 46409360, 036242812 (6) Hidradenitis suppurativa of right axilla ICD Codes: L73.2 - Hidradenitis suppurativa SNOMED: 575662759 (7) Crohns disease ICD Codes: K50.90 - Crohn's disease, unspecified, without complications SNOMED: 99186524 Assessment/Plan: 23 year old female with hx of Hidradenitis suppurativa presents with right axillary wound dehiscence, purulent discharge and wound cellulitis, failed outpatient treatment. she is now pod# 7 s/p right axillary debridement and flap elevation for recurrence of her hidradenitis suppurative. PD #3, flap closure. Hemodynamically stable #R axillary Hidradenitis suppurativa- wound dehiscence and cellulitis with purulent discharge #R groin hidradenitis suppurativa- patient doesn't want surgery during this hospitalization med/surg Dr. Brambila's services and recs appreciated IV antibiotics per ID consult: Daptomycin and cefepime (gm negative and MRSA coverage) f/u OR cultures and sensitivities pain control- seen by pain management consult. follow up recs IV Benadryl for pleuritis Zofran for n/v monitor vitals Blood cultures negative to date, follow up OR cultures #Crohn's- stable. Last Remicade a month ago, gets it every 8 weeks #constipation #N/V- resolved -continue to monitor closely, given history of IBD. -GI consult for constipation appreciated -Started on lactulose #Hypomagnesemia, hypokalemia, hypocalcemia -Replace as needed -ionized calcium is low, will replace all electrolytes. encouraged PO intake #Depression/Anxiety- stable. Continue home fluoxetine, and Aripiprazole. #vte ppx: Heparin #GI ppx: omeprazole Code status: full code I spent 40 minutes on this encounter. > 50% spent on counselling and care coordination. Case d/w Drs. Brambila and Imani. d/w patient time of this note may not reflect time of encounter Subjective Date patient seen: Jan 03, 2019 ROS Limited/Unobtainable: No Constitutional: Reports: no symptoms, chills, diaphoresis, fever, malaise, weakness, other - pain 08/29 HEENT: Denies: no symptoms, eye pain, blurred vision, tearing, double vision, ear pain, ear discharge, nose pain, nose congestion, throat pain, throat swelling, mouth pain, mouth swelling, other Cardiovascular: Denies: no symptoms, chest pain, edema, irregular heart rate, lightheadedness, palpitations, syncope, other Respiratory: Denies: no symptoms, cough, orthopnea, shortness of breath, SOB with excertion, SOB at rest, sputum, stridor, wheezing, other Gastrointestinal/Abdominal: Denies: no symptoms, abdomen distended, abdominal pain, black stools, tarry stools, blood in stool, constipated, diarrhea, difficulty swallowing, nausea, poor appetite, poor fluid intake, rectal bleeding , vomiting, other Genitourinary: Denies: no symptoms, burning, discharge, frequency, flank pain, hematuria, incontinence, pain, urgency, other Neurologic/Psychiatric: Denies: no symptoms, anxiety, depressed, emotional problems, headache, numbness, paresthesia, pre-existing deficit, seizure, tingling, tremors, weakness, other Endocrine: Denies: no symptoms, excessive sweating, flushing, intolerance to cold, intolerance to heat, increased hunger, increased thirst, increased urine, unexplained weight gain, unexplained weight loss, other Allergies: Coded Allergies: SILVER (Verified Allergy, Mild, 06/13/18) AZATHIOPRINE (Verified Allergy, Unknown, 05/15/18) DOCUSATE (Verified Allergy, Unknown, 05/15/18) ok for oral LATEX (Verified Allergy, Unknown, 05/15/18) VANCOMYCIN (Verified Allergy, Unknown, 05/15/18) BISACODYL (Verified Adverse Reaction, Severe, Rash, 05/15/18) Uncoded Allergies: IODINE CONTRAST (Allergy, Unknown, 05/15/18) TAPE (Allergy, Unknown, 05/15/18) Subjective seen and examined. POD #7 s/p initial flap, POD #3 wound closure. VSS. c/o pain. home health set up with [facility] per trimming caser. Aiming to dc tomorrow. Objective Last 24 Hour Vital Signs Date Time Temp Pulse Resp B/P (MAP) Pulse Ox O2 Delivery O2 Flow Rate FiO2 01/03/19 04:00 98.6 94 19 99/63 (75) 94 01/03/19 04:00 18 95 01/03/19 00:00 98.8 83 18 92/54 (67) 94 01/03/19 00:00 18 94 01/02/19 21:00 Room Air 01/02/19 20:00 98.6 74 17 105/67 (80) 99 01/02/19 20:00 17 95 01/02/19 19:42 98 Nasal Cannula 2.0 28 01/02/19 16:00 98.9 80 16 101/66 (78) 98 01/02/19 16:00 16 98 01/02/19 12:00 16 98 01/02/19 12:00 98.2 82 16 103/65 (78) 98 Intake and Output 01/02/19 01/03/19 19:00 07:00 Intake Total 1855 ml 1580 ml Output Total 2 ml 5 ml Balance 1853 ml 1575 ml Intake Oral 550 ml 480 ml IV Total 1305 ml 1100 ml Output Drainage Total 2 ml 5 ml # Voids 3 3 Laboratory Tests 01/03/19 04:30: White Blood Count 7.9, Red Blood Count 3.67L, Hemoglobin 10.2L, Hematocrit 31.6L , Mean Corpuscular Volume 86, Mean Corpuscular Hemoglobin 27.7, Mean Corpuscular Hemoglobin Concent 32.2, Red Cell Distribution Width 13.7, Platelet Count 252, Mean Platelet Volume 4.6L, Neutrophils (%) (Auto) 52.1, Lymphocytes ( %) (Auto) 34.7, Monocytes (%) (Auto) 8.0, Eosinophils (%) (Auto) 3.5H, Basophils (%) (Auto) 1.7, Sodium Level 138, Potassium Level 4.0, Chloride Level 103, Carbon Dioxide Level 31, Anion Gap 4L, Blood Urea Nitrogen 4L, Creatinine 0.8, Estimat Glomerular Filtration Rate > 60, Glucose Level 90, Calcium Level 7.8L, Magnesium Level 1.9, Total Bilirubin 0.1L, Aspartate Amino Transf (AST/ SGOT) 19, Alanine Aminotransferase (ALT/SGPT) 19, Alkaline Phosphatase 50, Total Creatine Kinase 41, Total Protein 5.9L, Albumin 2.4L, Globulin 3.5, Albumin/Globulin Ratio 0.7L Height (Feet): 5 Height (Inches): 5.00 Weight (Pounds): 201 Objective General Appearance: no apparent distress, alert, non-toxic Head: normocephalic, atraumatic Eyes: bilateral eye normal inspection, bilateral eye PERRL Neck: full range of motion Respiratory: lungs clear, normal breath sounds, speaking full sentences Cardiovascular: regular rate, rhythm, no m/r/g gastrointestinal: obese, soft, healed laparoscopic scars, non tender, non distended Musculoskeletal: decreased range of motion right arm due to pain Genitourinary: healed scars from previous hidradenitis, new abscess right groin adjacent to labia majora, extremely tender Neurologic: alert, oriented x3, grossly normal Psychiatric: judgement/insight normal Skin: Right axilla dressing: C/D/I Isidro Steinberg M.D. Jan 03, 2019 10:28
[2019-01-03] MEDS: Relistor 12mg/0.6ml Vial SUBQ SCH (10:52)
[2019-01-03 12:00] VITALS: BP 116/78
--- NOTE | 2019-01-03 13:38 | NUR ---
RD ASSESSMENT & RECOMMENDATIONS SEE CARE ACTIVITY FOR COMPLETE ASSESSMENT DAILY ESTIMATED NEEDS: Needs based on abscess, surgery, obese; 64.8kg adj 25-30 kcals/kg 5965-3905 total kcals 1.25-2 g protein/kg 81-130 g total protein 25-30 mL/kg 3986-7662 total fluid mLs NUTRITION DIAGNOSIS: *Increased protein needs R/T wound healing as evidenced by h/o hidradenitis. *Decreased kcal needs r/t obesity AEB pt is 147% of [place] Body Weight. PO DIET RECOMMENDATIONS: Regular ADDITIONAL RECOMMENDATIONS: 1) Obtain a standing weight as able 2) Wound care: add ALEX BID + MVI x1 + Vit C 250mg BID 3) High pro snacks in b/w meals with continued fair to variable po intake
--- NOTE | 2019-01-03 13:48 | General Progress Note ---
Assessment/Plan Assessment/Plan: Assessment/Plan Problems: (1) Therapeutic opioid-induced constipation (OIC) ICD Codes: K59.03 - Drug induced constipation; T40.2X5A - Adverse effect of other opioids, initial encounter SNOMED: 220408084290506 (2) Constipation ICD Codes: K59.00 - Constipation, unspecified SNOMED: 22457962 (3) Anemia ICD Codes: D64.9 - Anemia, unspecified SNOMED: 902564817 (4) Crohns disease ICD Codes: K50.90 - Crohn's disease, unspecified, without complications SNOMED: 84619833 (5) Anxiety ICD Codes: F41.9 - Anxiety disorder, unspecified SNOMED: 06073710 (6) Opioid use ICD Codes: F11.90 - Opioid use, unspecified, uncomplicated SNOMED: 223169405 Status: unchanged Assessment/Plan Patient with history of Crohn's disease, on scheduled Remicade next dose in 1 month. Patient has allergy to Colace, refuses MiraLAX. had BM lactulose twice daily. Follow-up surgical recommendations Pain management PPI We will follow along with additional recommendations Subjective ROS Limited/Unobtainable: Yes Allergies: Coded Allergies: SILVER (Verified Allergy, Mild, 06/13/18) AZATHIOPRINE (Verified Allergy, Unknown, 05/15/18) DOCUSATE (Verified Allergy, Unknown, 05/15/18) ok for oral LATEX (Verified Allergy, Unknown, 05/15/18) VANCOMYCIN (Verified Allergy, Unknown, 05/15/18) BISACODYL (Verified Adverse Reaction, Severe, Rash, 05/15/18) Uncoded Allergies: IODINE CONTRAST (Allergy, Unknown, 05/15/18) TAPE (Allergy, Unknown, 05/15/18) Objective Last 24 Hour Vital Signs Date Time Temp Pulse Resp B/P (MAP) Pulse Ox O2 Delivery O2 Flow Rate FiO2 01/03/19 09:00 Room Air 01/03/19 08:00 98.4 20 104/65 (78) 01/03/19 08:00 16 98 01/03/19 04:00 98.6 94 19 99/63 (75) 94 01/03/19 04:00 18 95 01/03/19 00:00 98.8 83 18 92/54 (67) 94 01/03/19 00:00 18 94 01/02/19 21:00 Room Air 01/02/19 20:00 98.6 74 17 105/67 (80) 99 01/02/19 20:00 17 95 01/02/19 19:42 98 Nasal Cannula 2.0 28 01/02/19 16:00 98.9 80 16 101/66 (78) 98 01/02/19 16:00 16 98 Intake and Output 01/02/19 01/03/19 19:00 07:00 Intake Total 1855 ml 1580 ml Output Total 2 ml 5 ml Balance 1853 ml 1575 ml Intake Oral 550 ml 480 ml IV Total 1305 ml 1100 ml Output Drainage Total 2 ml 5 ml # Voids 3 3 Laboratory Tests 01/03/19 04:30: White Blood Count 7.9, Red Blood Count 3.67L, Hemoglobin 10.2L, Hematocrit 31.6L , Mean Corpuscular Volume 86, Mean Corpuscular Hemoglobin 27.7, Mean Corpuscular Hemoglobin Concent 32.2, Red Cell Distribution Width 13.7, Platelet Count 252, Mean Platelet Volume 4.6L, Neutrophils (%) (Auto) 52.1, Lymphocytes ( %) (Auto) 34.7, Monocytes (%) (Auto) 8.0, Eosinophils (%) (Auto) 3.5H, Basophils (%) (Auto) 1.7, Sodium Level 138, Potassium Level 4.0, Chloride Level 103, Carbon Dioxide Level 31, Anion Gap 4L, Blood Urea Nitrogen 4L, Creatinine 0.8, Estimat Glomerular Filtration Rate > 60, Glucose Level 90, Calcium Level 7.8L, Magnesium Level 1.9, Total Bilirubin 0.1L, Aspartate Amino Transf (AST/ SGOT) 19, Alanine Aminotransferase (ALT/SGPT) 19, Alkaline Phosphatase 50, Total Creatine Kinase 41, Total Protein 5.9L, Albumin 2.4L, Globulin 3.5, Albumin/Globulin Ratio 0.7L Height (Feet): 5 Height (Inches): 5.00 Weight (Pounds): 201 General Appearance: alert EENT: normal ENT inspection Neck: supple Cardiovascular: normal rate Respiratory/Chest: decreased breath sounds Abdomen: normal bowel sounds, non tender, soft Extremities: non-tender Moshe Terrazas MD Jan 03, 2019 13:48
--- NOTE | 2019-01-03 15:32 | NUR ---
*-* INSURANCE *--* ALL CLINICALS HAVE BEEN FAXED TO: [facility] FAX CLINICALS TO [phone]
[2019-01-03 16:00] VITALS: BP 108/71
--- NOTE | 2019-01-03 16:22 | NUR ---
CASE MANAGEMENT:REVIEW 01/03/19 SI: POD #7 AND POD #3 S/P RT AXILLARY DEBRIDEMENT, FLAP ELEVATION AND CLOSURE 98.7 70 20 116/78 97% ON RA H/H-10.2/31.6 CA-7.8 IS: IV DAPTOMYCIN Q24HRS IV CEFEPIME Q12 IVF@100/HR YARD OPERATOR DILAUDID LACTULOSE PO TID PROZAC PO QD ABILIFY PO QD : TO MED/SURG 3 [facility] DCP: [facility] PLAN: PATIENT IS DEVELOPING HIDRADENITIS IN HER GROIN AREA THAT WILL NEED TO BE DEALT WITH AT A LATTER DATE PATIENT HAS BEEN REFERRED TO [facility] T: [phone] F: [phone]
[2019-01-03] MEDS: DAPTOmycin 500 MG in NS 50 ML IV SCH (17:50)
[2019-01-03] MEDS: Miralax 17gm pkt ORAL SCH (20:30)
--- NOTE | 2019-01-03 20:30 | NUR ---
NURSES NOTE: Met pt in bed, A/OX4, able to verbalize needs. Patient displays no outward s/s of distress. Breathing is even and unlabored, currently on room air. Will evaluate if o2 will be necessary. Patient claims she has pain in R axillary area 8 and is assured pain meds will be given according to eMAR. Currently on Dilaudid 0.2 mg via TOLL TRANSMISSION WORKER pump. R axillary arm to air and pt is to tell nurse when she would like it covered with a 4x4 no tape. R foot IV is patent, with no s/s of infection or infiltration. VS within normal limits. All due meds will be given. RR and VS will continue to be closely monitored due to level of pain meds requested by pt. Call light within reach. Pt will continue to be monitored.
--- NOTE | 2019-01-03 20:41 | NUR ---
NURSE NOTES: Pt required extensive care 2 to emotional state. Seen by Dr Brambila earlier in shift area to rt axilarry left open to air per request of pt. " it feels better to air. ' Oncoming made aware not to put tape to axiliary area. Pt had a BM this shift after several days of constipation. Per Dr Quintana pt developed reaction to tape no tape to area should be used.
--- NOTE | 2019-01-03 20:45 | NUR ---
HAND-OFF: Report given to Selma FITZGERALD informed that pt rt axillary area is open to are at this time butr supplies are in the room, pt will inform her when she is ready for area to be covered loosley with 4x4 no tape. Pt rash endorsed to Nurse to follow upand call Dr Bryant .
--- NOTE | 2019-01-03 21:00 | NUR ---
NURSES NOTE: Patient is requesting higher dose of Benadryl for rash. Pt is currently receiving ATC narcotics. Informed pt RN will call in the morning to let DR know rash has spread to under breast for a topical cream perhaps, but increasing dose of Benadryl not advisable.
[2019-01-04] VITALS: BP 110/57
[2019-01-04] MEDS: DiphenhydrAMINE 50mg/ml Inj IVP PRN (00:01)
[2019-01-04] MEDS: PCA shift volume MISC SCH (07:00)
--- NOTE | 2019-01-04 07:45 | NUR ---
NURSE NOTES: Received report from LIA Siddiqui. Patient A&Ox4. On nasal cannula 2L/min. No signs of distress or labored breathing. IV intact , patent, and infusing IV fluids and connected to WASTE WATER OPERATOR. Patient expresses pain. Bed in lowest position with call light in reach. Will continue with plan of care.
[2019-01-04 08:00] VITALS: BP 114/73
--- NOTE | 2019-01-04 08:38 | NUR ---
HAND OFF: Pt still expresses she would like more Benadryl for rash, not topical. Dr not contacted as pt made aware that she is on highly potent narcotics and increasing Benadryl is not advisable. Report given to LIA Witt. Pt left in stable condition.
[2019-01-04] MEDS: Lactulose 10gm/15ml UDC ORAL SCH ×3 (09:00→18:00)
[2019-01-04] MEDS: Cefepime HCl 2 GM in D5W 55 ML IVPB SCH (09:02)
[2019-01-04] MEDS: Heparin 5000 units/ml inj SUBQ SCH ×2 (09:03→21:04)
[2019-01-04] MEDS: Neosporin Oint 15gm TOPIC SCH (09:17)
--- NOTE | 2019-01-04 09:22 | General Progress Note ---
Assessment/Plan Assessment/Plan: (1) Recurrent axillary hidradenitis with active abscess and drainage (2) S/p Radical excision of right axillary tissue (3) Right Axilla pain Patient will be discontinued off ILLUSTRATOR SET Dilaudid, Dilaudid IV changed to Q3H PRN and continue Percocet We will write an RX for Percocet in anticipation for discharge D/w Dr. Long and he concurred. Subjective Date patient seen: Jan 04, 2019 Time patient seen: 08:45 - am Allergies: Coded Allergies: SILVER (Verified Allergy, Mild, 06/13/18) AZATHIOPRINE (Verified Allergy, Unknown, 05/15/18) DOCUSATE (Verified Allergy, Unknown, 05/15/18) ok for oral LATEX (Verified Allergy, Unknown, 05/15/18) VANCOMYCIN (Verified Allergy, Unknown, 05/15/18) BISACODYL (Verified Adverse Reaction, Severe, Rash, 05/15/18) Uncoded Allergies: IODINE CONTRAST (Allergy, Unknown, 05/15/18) TAPE (Allergy, Unknown, 05/15/18) Subjective Constitutional: Reports: no symptoms HEENT: Reports: no symptoms Cardiovascular: Reports: no symptoms Respiratory: Reports: cough Gastrointestinal/Abdominal: Reports: no symptoms Genitourinary: Reports: no symptoms Neurologic/Psychiatric: Reports: no symptoms Endocrine: Reports: no symptoms Hematologic/Lymphatic: Reports: no symptoms Subjective Patient is in bed continues to c/o pain using 9 mg of the ILLUSTRATOR SET Dilaudid in the last 24hrs. Also has used 2 doses of Dilaudid IV breakthrough and 3 doses of Percocet. I d/w her about discontinuing the ILLUSTRATOR SET and she seems to understand Objective Last 24 Hour Vital Signs Date Time Temp Pulse Resp B/P (MAP) Pulse Ox O2 Delivery O2 Flow Rate FiO2 01/04/19 08:00 100.6 97 19 114/73 (87) 96 01/04/19 08:00 97 18 96 01/04/19 07:35 95 Room Air 21 01/04/19 00:00 79 18 94 01/04/19 00:00 98.5 79 19 110/57 (74) 94 01/03/19 21:00 Room Air 01/03/19 20:09 96 Nasal Cannula 2.0 28 01/03/19 16:00 18 98 01/03/19 16:00 98.2 78 18 108/71 (83) 98 01/03/19 12:00 98.7 70 20 116/78 (91) 98 01/03/19 12:00 16 97 Intake and Output 01/03/19 01/04/19 18:59 06:59 Intake Total 1485 ml 480 ml Output Total 40 ml Balance 1485 ml 440 ml Intake Oral 480 ml 480 ml IV Total 1005 ml Output Drainage Total 40 ml # Voids 2 # Bowel Movements 1 Height (Feet): 5 Height (Inches): 5.00 Weight (Pounds): 201 Objective General Appearance: no apparent distress, alert EENT: PERRL/EOMI, normal ENT inspection Neck: non-tender, normal alignment Respiratory/Chest: lungs clear, normal breath sounds Abdomen: normal bowel sounds, non tender Extremities: other - right axilla bandages noted Edema: no edema noted Generalized Neurologic: alert, oriented x 3 Skin: normal pigmentation Hao Aldana Jan 04, 2019 09:22
--- NOTE | 2019-01-04 09:27 | General Progress Note ---
Assessment/Plan Problem List: (1) Depression ICD Codes: F32.9 - Major depressive disorder, single episode, unspecified SNOMED: 58784379 (2) Anxiety ICD Codes: F41.9 - Anxiety disorder, unspecified SNOMED: 70153746 (3) Wound cellulitis ICD Codes: L03.90 - Cellulitis, unspecified SNOMED: 737120164 (4) Wound dehiscence, surgical ICD Codes: T81.31XA - Disruption of external operation (surgical) wound, not elsewhere classified, initial encounter SNOMED: 476788032 Qualifiers: Qualified Codes: T81.31XA - Disruption of external operation (surgical) wound, not elsewhere classified, initial encounter (5) Surgical site infection ICD Codes: T81.49XA - Infection following a procedure, other surgical site, initial encounter SNOMED: 98515320, 213628969 (6) Hidradenitis suppurativa of right axilla ICD Codes: L73.2 - Hidradenitis suppurativa SNOMED: 071912719 (7) Crohns disease ICD Codes: K50.90 - Crohn's disease, unspecified, without complications SNOMED: 54305169 Assessment/Plan: 23 year old female with hx of Hidradenitis suppurativa presents with right axillary wound dehiscence, purulent discharge and wound cellulitis, failed outpatient treatment. she is now pod# 8 s/p right axillary debridement and flap elevation for recurrence of her hidradenitis suppurative. PD #4, flap closure. Hemodynamically stable. Now with low grade fever, cough with green sputum, episode of tachycardia with normal bp. DC on hold #Fever, tachycardia, along with green sputum- r/o pneumonia vs. atelectasis cxr, sputum gram stain and culture encourage incentive spirometry ID follow up CBC, bmp #R axillary Hidradenitis suppurativa- wound dehiscence and cellulitis with purulent discharge #R groin hidradenitis suppurativa- patient doesn't want surgery during this hospitalization med/surg Dr. Brambila's services and recs appreciated IV antibiotics per ID consult: Daptomycin and cefepime (gm negative and MRSA coverage) f/u OR cultures and sensitivities pain control- seen by pain management consult. follow up recs IV Benadryl for pleuritis Zofran for n/v monitor vitals Blood cultures negative to date, follow up OR cultures #Crohn's- stable. Last Remicade a month ago, gets it every 8 weeks #constipation #N/V- resolved -continue to monitor closely, given history of IBD. -GI consult for constipation appreciated -Started on lactulose. had BM #Hypomagnesemia, hypokalemia, hypocalcemia -Replace as needed -ionized calcium is low, will replace all electrolytes. encouraged PO intake #Depression/Anxiety- stable. Continue home fluoxetine, and Aripiprazole. #vte ppx: Heparin #GI ppx: omeprazole Code status: full code Reason for continued hospitalization: Fever, tachycardia, productive cough disposition: Home with home health services [facility] I spent 40 minutes on this encounter. > 50% spent on counselling and care coordination. Case d/w Drs. Brambila and Imani. d/w patient time of this note may not reflect time of encounter Subjective Date patient seen: Jan 04, 2019 ROS Limited/Unobtainable: No Constitutional: Reports: no symptoms, chills, diaphoresis, fever - 100.6 this morning , malaise, weakness, other - pain axilla 08/29 HEENT: Denies: no symptoms, eye pain, blurred vision, tearing, double vision, ear pain, ear discharge, nose pain, nose congestion, throat pain, throat swelling, mouth pain, mouth swelling, other Cardiovascular: Denies: no symptoms, chest pain, edema, irregular heart rate, lightheadedness, palpitations, syncope, other Respiratory: Reports: no symptoms, cough - productive of greenish sputum, orthopnea, shortness of breath, SOB with excertion, SOB at rest, sputum, stridor , wheezing, other Gastrointestinal/Abdominal: Denies: no symptoms, abdomen distended, abdominal pain, black stools, tarry stools, blood in stool, constipated, diarrhea, difficulty swallowing, nausea, poor appetite, poor fluid intake, rectal bleeding , vomiting, other Genitourinary: Denies: no symptoms, burning, discharge, frequency, flank pain, hematuria, incontinence, pain, urgency, other Neurologic/Psychiatric: Denies: no symptoms, anxiety, depressed, emotional problems, headache, numbness, paresthesia, pre-existing deficit, seizure, tingling, tremors, weakness, other Endocrine: Denies: no symptoms, excessive sweating, flushing, intolerance to cold, intolerance to heat, increased hunger, increased thirst, increased urine, unexplained weight gain, unexplained weight loss, other Hematologic/Lymphatic: Denies: no symptoms, anemia, easy bleeding, easy bruising, other Allergies: Coded Allergies: SILVER (Verified Allergy, Mild, 06/13/18) AZATHIOPRINE (Verified Allergy, Unknown, 05/15/18) DOCUSATE (Verified Allergy, Unknown, 05/15/18) ok for oral LATEX (Verified Allergy, Unknown, 05/15/18) VANCOMYCIN (Verified Allergy, Unknown, 05/15/18) BISACODYL (Verified Adverse Reaction, Severe, Rash, 05/15/18) Uncoded Allergies: IODINE CONTRAST (Allergy, Unknown, 05/15/18) TAPE (Allergy, Unknown, 05/15/18) Subjective seen and examined. POD #8 s/p initial flap, POD #4 wound closure. Continues to have pain. This morning has low grade fever 100.6, cough and green phlegm. Denies any urinary complaints of frequency, burning, or pain. 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 Objective Last 24 Hour Vital Signs Date Time Temp Pulse Resp B/P (MAP) Pulse Ox O2 Delivery O2 Flow Rate FiO2 01/04/19 08:00 100.6 97 19 114/73 (87) 96 01/04/19 08:00 97 18 96 01/04/19 07:35 95 Room Air 21 01/04/19 00:00 79 18 94 01/04/19 00:00 98.5 79 19 110/57 (74) 94 01/03/19 21:00 Room Air 01/03/19 20:09 96 Nasal Cannula 2.0 28 01/03/19 16:00 18 98 01/03/19 16:00 98.2 78 18 108/71 (83) 98 01/03/19 12:00 98.7 70 20 116/78 (91) 98 01/03/19 12:00 16 97 Intake and Output 01/03/19 01/04/19 18:59 06:59 Intake Total 1485 ml 480 ml Output Total 40 ml Balance 1485 ml 440 ml Intake Oral 480 ml 480 ml IV Total 1005 ml Output Drainage Total 40 ml # Voids 2 # Bowel Movements 1 Height (Feet): 5 Height (Inches): 5.00 Weight (Pounds): 201 Objective General Appearance: no apparent distress, alert, non-toxic Head: normocephalic, atraumatic Eyes: bilateral eye normal inspection, bilateral eye PERRL Neck: full range of motion Respiratory: lungs clear, normal breath sounds, speaking full sentences Cardiovascular: regular rate, rhythm, no m/r/g gastrointestinal: obese, soft, healed laparoscopic scars, non tender, non distended Musculoskeletal: decreased range of motion right arm due to pain Genitourinary: healed scars from previous hidradenitis, new abscess right groin adjacent to labia majora, extremely tender Neurologic: alert, oriented x3, grossly normal Psychiatric: judgement/insight normal Skin: Right axilla +erythema, sutures in place, clean, intact, no purulence. there is evidence of contact dermatitis, vesicles from tape allergy . Isidro Johnson M.D. Jan 04, 2019 09:27
[2019-01-04 10:17] LABS: BASOPHILS % (AUTO) 0.7 % (0.0-2.0); HEMATOCRIT 33.8 % (37.0-47.0); HEMOGLOBIN 11.5 G/DL (12.0-16.0); LYMPHOCYTES % (AUTO) 13.6 % (20.0-45.0); MEAN CORPUSCULAR VOLUME 81 FL (80-99); MONOCYTES % (AUTO) 5.1 % (1.0-10.0); NEUTROPHILS % (AUTO) 79.7 % (45.0-75.0); PLATELET COUNT 233 K/UL (150-450); RED BLOOD COUNT 4.16 M/UL (4.20-5.40); RED CELL DISTRIBUTION WIDTH 11.8 % (11.6-14.8); WHITE BLOOD COUNT 14.8 K/UL (4.8-10.8)
[2019-01-04 10:31] LABS: BLOOD UREA NITROGEN 3 mg/dL (7-18); CALCIUM 8.3 MG/DL (8.5-10.1); CARBON DIOXIDE 33 MMOL/L (21-32); CHLORIDE 101 MMOL/L (98-107); CREATININE 0.7 MG/DL (0.55-1.30); POTASSIUM 3.6 MMOL/L (3.5-5.1); SODIUM 132 MMOL/L (136-145)
--- NOTE | 2019-01-04 11:45 | Diagnostic Imaging Report ---
Indication: Cough Comparison: 05/18/2018 A single view chest radiograph was obtained. Findings: There is a suspected infiltrate in the left perihilar region extending into the lower lobe. Consider pneumonia. Correlate clinically. Minimal volume loss also noted with slight elevation of the left hemidiaphragm. Bones are unremarkable. Heart size is normal. IMPRESSION: Pneumonia suspected at the left lung base. Correlate clinically
--- NOTE | 2019-01-04 11:51 | General Progress Note ---
Assessment/Plan Assessment/Plan: Assessment/Plan Problems: (1) Therapeutic opioid-induced constipation (OIC) ICD Codes: K59.03 - Drug induced constipation; T40.2X5A - Adverse effect of other opioids, initial encounter SNOMED: 279621613770392 (2) Constipation ICD Codes: K59.00 - Constipation, unspecified SNOMED: 15633232 (3) Anemia ICD Codes: D64.9 - Anemia, unspecified SNOMED: 289841777 (4) Crohns disease ICD Codes: K50.90 - Crohn's disease, unspecified, without complications SNOMED: 59344821 (5) Anxiety ICD Codes: F41.9 - Anxiety disorder, unspecified SNOMED: 68131861 (6) Opioid use ICD Codes: F11.90 - Opioid use, unspecified, uncomplicated SNOMED: 029692768 Status: unchanged Assessment/Plan Patient with history of Crohn's disease, on scheduled Remicade next dose in 1 month. Patient has allergy to Colace, refuses MiraLAX. lactulose twice daily. Follow-up surgical recommendations Pain management PPI We will follow along with additional recommendations Subjective ROS Limited/Unobtainable: No Allergies: Coded Allergies: SILVER (Verified Allergy, Mild, 06/13/18) AZATHIOPRINE (Verified Allergy, Unknown, 05/15/18) DOCUSATE (Verified Allergy, Unknown, 05/15/18) ok for oral LATEX (Verified Allergy, Unknown, 05/15/18) VANCOMYCIN (Verified Allergy, Unknown, 05/15/18) BISACODYL (Verified Adverse Reaction, Severe, Rash, 05/15/18) Uncoded Allergies: IODINE CONTRAST (Allergy, Unknown, 05/15/18) TAPE (Allergy, Unknown, 05/15/18) Objective Last 24 Hour Vital Signs Date Time Temp Pulse Resp B/P (MAP) Pulse Ox O2 Delivery O2 Flow Rate FiO2 01/04/19 09:31 99.7 01/04/19 09:00 Nasal Cannula 2.0 01/04/19 08:00 100.6 97 19 114/73 (87) 96 01/04/19 08:00 97 18 96 01/04/19 07:35 95 Room Air 21 01/04/19 00:00 79 18 94 01/04/19 00:00 98.5 79 19 110/57 (74) 94 01/03/19 21:00 Room Air 01/03/19 20:09 96 Nasal Cannula 2.0 28 01/03/19 16:00 18 98 01/03/19 16:00 98.2 78 18 108/71 (83) 98 01/03/19 12:00 98.7 70 20 116/78 (91) 98 01/03/19 12:00 16 97 Intake and Output 01/03/19 01/04/19 19:00 07:00 Intake Total 1485 ml 480 ml Output Total 40 ml Balance 1485 ml 440 ml Intake Oral 480 ml 480 ml IV Total 1005 ml Output Drainage Total 40 ml # Voids 2 # Bowel Movements 1 Laboratory Tests 01/04/19 09:55: White Blood Count 14.8#H, Red Blood Count 4.16L, Hemoglobin 11.5L, Hematocrit 33.8L, Mean Corpuscular Volume 81, Mean Corpuscular Hemoglobin 27.5, Mean Corpuscular Hemoglobin Concent 34.0, Red Cell Distribution Width 11.8, Platelet Count 233, Mean Platelet Volume 5.2L, Neutrophils (%) (Auto) 79.7H, Lymphocytes (%) (Auto) 13.6L, Monocytes (%) (Auto) 5.1, Eosinophils (%) (Auto) 1.0, Basophils (%) (Auto) 0.7, Sodium Level 132L, Potassium Level 3.6, Chloride Level 101, Carbon Dioxide Level 33H, Blood Urea Nitrogen 3L, Creatinine 0.7, Estimat Glomerular Filtration Rate > 60, Glucose Level 141H, Calcium Level 8.3L Height (Feet): 5 Height (Inches): 5.00 Weight (Pounds): 201 General Appearance: alert EENT: normal ENT inspection Neck: supple Cardiovascular: normal rate Respiratory/Chest: lungs clear Abdomen: normal bowel sounds, non tender, soft Extremities: non-tender Moshe Terrazas MD Jan 04, 2019 11:51
--- NOTE | 2019-01-04 11:54 | General Progress Note ---
Progress Note Progress Note Pt seen and examined,. POD# 4 from axillary wound closure. Had a low grade fever last night with a productive cough. Will work her up and hold off on discharge given above. Flap looks healthy. Drain was pulled. WBC elevated to 14.8 Will have ID reassess patient as well. Sagar Campbell MD, MD Jan 04, 2019 11:54
[2019-01-04 12:00] VITALS: BP 122/75
--- NOTE | 2019-01-04 14:11 | NUR ---
NURSE NOTES: Wasted remaining Dilaudid from [employer], 7.39mL, with pharmacist named Mahogany. Charge nurse aware.
--- NOTE | 2019-01-04 14:27 | NUR ---
CASE MANAGEMENT:REVIEW 01/04/19 SI: POD #8 AND POD #4 S/P RT AXILLARY DEBRIDEMENT, FLAP ELEVATION AND CLOSURE 100.6 97 18 114/73 96% ON 2L/NC WBC+14.8 IS: IV AZITHROMYCIN Q24 IV ZOSYN Q8HRS IV DAPTOMYCIN Q24 IVF@150/HR SOFA BACK UPHOLSTERER DILAUDID LACTULOSE PO TID PROZAC PO QD ABILIFY PO QD : TO MED/S[facility]G [facility] DCP: HOME [facility] PLAN: PATIENT IS DEVELOPING HIDRADENITIS IN HER GROIN AREA THAT WILL NEED TO BE DEALT WITH AT A LATTER DATE PATIENT HAS BEEN REFERRED TO [facility] T: [phone] F: [phone]
[2019-01-04] MEDS: Zosyn 3.375gm q8h **Extended infusion IVPB SCH ×4 (14:59→22:11)
[2019-01-04 16:00] VITALS: BP 127/84
[2019-01-04] MEDS: HYDROmorphone 1mg/ml Carpuject IVP PRN ×2 (16:37→21:00)
--- NOTE | 2019-01-04 18:07 | Infectious Diseases Prog Note ---
Assessment/Plan Assessment/Plan ASSESSMENT AND PLAN: 1. right axilla wound infection/abscess/cellulitis, mild leukocytosis, hidradenitis suppurativa, new right groin abscess that spontaneously drained now with fevers, leukocytosis, ? sepsis, sirs, left pna - ? aspiration/hcap , ? cap - change antibiotics to zosyn, daptomycin and azithromycin - check cultures, labs and chest x-ray - s/p debridement and closure - monitor labs, ck - communicated with Dr. Johnson - surgery f/u - Dr. Brambila 2. Depression. 3. Anxiety. 4. Crohn's disease. 5. History of colectomy. On Remicade. 6. Hidradenitis suppurativa. 7. History of colectomy. 8. Allergies to azathioprine, bisacodyl, docusate, iodine, vancomycin, latex, and silver tape. 9. Family history is positive for depression, anxiety, and Crohn's. 10. Social history is negative. 11. MAR was noted. 12. Case was discussed with RN. 13. Case was discussed with Dr. Johnson. 14. Continue treatment per primary consultants. Subjective Constitutional: Reports: fever; Denies: fatigue HEENT: Denies: congestion Respiratory: Denies: shortness of breath Cardiovascular: Denies: chest pain Gastrointestinal/Abdominal: Denies: nausea, vomiting, diarrhea Genitourinary: Reports: other - no santana Neurologic: Denies: headache Psychiatric: Denies: depression Skin: Denies: rash Hematologic: Denies: bleeding Musculoskeletal: Denies: pain Allergies: Coded Allergies: SILVER (Verified Allergy, Mild, 06/13/18) AZATHIOPRINE (Verified Allergy, Unknown, 05/15/18) DOCUSATE (Verified Allergy, Unknown, 05/15/18) ok for oral LATEX (Verified Allergy, Unknown, 05/15/18) VANCOMYCIN (Verified Allergy, Unknown, 05/15/18) BISACODYL (Verified Adverse Reaction, Severe, Rash, 05/15/18) Uncoded Allergies: IODINE CONTRAST (Allergy, Unknown, 05/15/18) TAPE (Allergy, Unknown, 05/15/18) Objective Vital Signs Last 24 Hour Vital Signs Date Time Temp Pulse Resp B/P (MAP) Pulse Ox O2 Delivery O2 Flow Rate FiO2 01/04/19 16:00 98.4 84 17 127/84 (98) 94 01/04/19 12:00 93 16 93 01/04/19 12:00 98.6 93 16 122/75 (91) 93 01/04/19 09:31 99.7 01/04/19 09:00 99.7 01/04/19 09:00 Nasal Cannula 2.0 01/04/19 08:00 100.6 97 19 114/73 (87) 96 01/04/19 08:00 97 18 96 01/04/19 07:35 95 Room Air 21 01/04/19 00:00 79 18 94 01/04/19 00:00 98.5 79 19 110/57 (74) 94 01/03/19 21:00 Room Air 01/03/19 20:09 96 Nasal Cannula 2.0 28 Height (Feet): 5 Height (Inches): 5.00 Weight (Pounds): 201 General Appearance: no acute distress HEENT: normocephalic, atraumatic, anicteric, mucous membranes moist Respiratory/Chest: crackles/rales, rhonchi - bilaterally Cardiovascular: normal rate, regular rhythm, no gallop/murmur, no JVD Abdomen: normal bowel sounds, soft, non tender, no organomegaly, non distended Genitourinary: other - no santana Extremities: no cyanosis Skin: no rash 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 Consider pneumonia. Correlate clinically. Minimal volume loss also noted with slight elevation of the left hemidiaphragm. Bones are unremarkable. Heart size is normal. IMPRESSION: Pneumonia suspected at the left lung base. Correlate clinically Microbiology Date/Time Source Procedure Growth Status 12/26/18 19:50 Blood Blood Culture - Final NO GROWTH AFTER 5 DAYS Complete Laboratory Tests Test 01/04/19 09:55 White Blood Count 14.8 K/UL (4.8-10.8) #H Red Blood Count 4.16 M/UL (4.20-5.40) L Hemoglobin 11.5 G/DL (12.0-16.0) L Hematocrit 33.8 % (37.0-47.0) L Mean Corpuscular Volume 81 FL (80-99) Mean Corpuscular Hemoglobin 27.5 PG (27.0-31.0) Mean Corpuscular Hemoglobin Concent 34.0 G/DL (32.0-36.0) Red Cell Distribution Width 11.8 % (11.6-14.8) Platelet Count 233 K/UL (150-450) Mean Platelet Volume 5.2 FL (6.5-10.1) L Neutrophils (%) (Auto) 79.7 % (45.0-75.0) H Lymphocytes (%) (Auto) 13.6 % (20.0-45.0) L Monocytes (%) (Auto) 5.1 % (1.0-10.0) Eosinophils (%) (Auto) 1.0 % (0.0-3.0) Basophils (%) (Auto) 0.7 % (0.0-2.0) Sodium Level 132 MMOL/L (136-145) L Potassium Level 3.6 MMOL/L (3.5-5.1) Chloride Level 101 MMOL/L (98-107) Carbon Dioxide Level 33 MMOL/L (21-32) H Blood Urea Nitrogen 3 mg/dL (7-18) L Creatinine 0.7 MG/DL (0.55-1.30) Estimat Glomerular Filtration Rate > 60 mL/min (>60) Glucose Level 141 MG/DL (74-106) H Calcium Level 8.3 MG/DL (8.5-10.1) L Current Medications Medications (Trade) Dose Ordered Sig/Alix Route PRN Reason Start Time Stop Time Status Last Admin Dose Admin Acetaminophen (Tylenol) 650 mg Q4H PRN ORAL Mild Pain (Pain Scale 1-3) 12/26/18 20:15 01/25/19 20:14 Acetaminophen (Tylenol) 650 mg Q4H PRN ORAL FEVER (temp>100.5F) 12/27/18 13:45 01/26/19 13:44 01/04/19 09:01 Acetaminophen (Tylenol) 650 mg Q4H PRN RECTAL Mild Pain (Pain Scale 1-3) 12/26/18 20:15 01/25/19 20:14 Acetaminophen (Tylenol) 650 mg Q4H PRN RECTAL fever 12/26/18 20:15 01/25/19 20:14 Al Hydroxide/Mg Hydroxide (Mylanta II) 30 ml Q6H PRN ORAL dyspepsia 12/26/18 20:15 01/25/19 20:14 Aripiprazole (Abilify) 2.5 mg DAILY ORAL 12/27/18 09:00 01/26/19 08:59 01/04/19 09:01 Azithromycin 500 mg/Dextrose 275 ml @ 275 mls/hr Q24H IV 01/04/19 18:00 01/11/19 17:59 Daptomycin 500 mg/ Sodium Chloride 50 ml @ 100 mls/hr Q24H IV 01/01/19 18:00 01/08/19 17:59 01/03/19 17:50 Dextrose (Dextrose 50%) 25 ml Q30M PRN IV Hypoglycemia 12/26/18 20:15 01/25/19 20:14 Dextrose (Dextrose 50%) 50 ml Q30M PRN IV Hypoglycemia 12/26/18 20:15 01/25/19 20:14 Diphenhydramine HCl (Benadryl) 12.5 mg Q6H PRN IVP Itching/Pruritis 12/31/18 10:00 01/30/19 09:59 01/04/19 00:01 Fluoxetine HCl (PROzac) 40 mg DAILY ORAL 12/27/18 09:00 01/26/19 08:59 01/04/19 09:00 Heparin Sodium (Porcine) (Heparin 5000 units/ml) 5,000 units EVERY 12 HOURS SUBQ 12/27/18 21:00 01/26/19 20:59 01/04/19 09:03 Hydromorphone HCl (Dilaudid) 1 mg Q3H PRN IVP Breakthrough Pain 01/04/19 09:30 01/09/19 08:59 01/04/19 16:37 Lactulose (Cephulac) 10 gm THREE TIMES A DAY ORAL 01/01/19 13:00 01/31/19 12:59 01/03/19 12:14 Magnesium Hydroxide (Mom) 30 ml HSPRN PRN ORAL Constipation 12/26/18 20:15 01/25/19 20:14 Methocarbamol (Robaxin) 500 mg Q4H PRN ORAL spasms 12/26/18 20:15 01/25/19 20:14 Methylnaltrexone [place] (Relistor) 12 mg QOD SUBQ 01/03/19 09:00 02/02/19 08:59 01/03/19 10:52 Metoclopramide HCl (Reglan) 10 mg Q6H PRN IVP Nausea & Vomiting 12/26/18 20:15 01/25/19 20:14 12/28/18 03:43 Neomycin/ Polymyxin/ Bacitracin (Neosporin Oint 15gm) 1 applic DAILY TOPIC 01/01/19 21:00 01/31/19 20:59 01/04/19 09:17 Nitroglycerin (Ntg) 0.4 mg Q5M X 3 DOSES PRN SL Prn Chest Pain 12/26/18 20:15 01/25/19 20:14 Ondansetron HCl (Zofran) 4 mg Q6H PRN IVP Nausea & Vomiting 12/27/18 13:45 01/26/19 13:44 01/03/19 04:51 Oxycodone/ Acetaminophen (Percocet 10/325) 1 tab Q4H PRN ORAL Severe Pain (Pain Scale 7-10) 01/04/19 09:24 01/11/19 09:23 01/04/19 14:06 Pantoprazole (Protonix) 40 mg DAILY ORAL 12/27/18 09:00 01/26/19 08:59 01/04/19 09:01 Piperacillin Sod/ Tazobactam Sod 3.375 gm/Sodium Chloride 110 ml @ 27.5 mls/hr EVERY 8 HOURS IVPB 01/04/19 14:00 01/09/19 13:59 01/04/19 14:59 Polyethylene Glycol (Miralax) 17 gm BEDTIME ORAL 12/30/18 21:00 01/29/19 20:59 01/03/19 20:30 Polyethylene Glycol (Miralax) 17 gm HSPRN PRN ORAL Constipation 12/26/18 20:15 01/25/19 20:14 Prochlorperazine (Compazine) 10 mg Q6H PRN IVP Nausea & Vomiting 12/26/18 20:15 01/25/19 20:14 12/29/18 10:42 Sodium Chloride 1,000 ml @ 150 mls/hr Q6H40M IV 01/04/19 14:00 02/03/19 13:59 01/04/19 14:06 Niya Holley MD Jan 04, 2019 18:07
[2019-01-04] MEDS: DAPTOmycin 500 MG in NS 50 ML IV SCH (18:10)
[2019-01-04] MEDS: Azithromycin 500mg/D5W 275ml IV SCH ×2 (19:05)
--- NOTE | 2019-01-04 19:40 | NUR ---
HAND-OFF: Report given to LIA Wyatt.
--- NOTE | 2019-01-04 19:50 | NUR ---
NURSE NOTES: Receive a report from LIA Garcia. While rounding, pt feels nausea sensation. Provide prn Zofran IVS. On IV fluid hydration. Pain level is 7/10. Prn pain medication has been given as ordered. No chilling or febrile sensation. Dry cough noted. Waiting for collecting urine and sputum to follow up. Remind pt of collecting samples. Pt verbalizes understanding. Kept gauze dressing on right axillary area. Call light within reach. Will continue to monitor.
[2019-01-04 20:00] VITALS: BP 101/61
--- NOTE | 2019-01-04 20:30 | NUR ---
NURSE NOTES: After Zofran IVS, pt states that nausea sense relieved. Breathing is even and non labored. No acute distress noted. No wheezing noted. Encourage to ambulate and use I/S while awake. Pt verbalizes understanding. Will continue to monitor.
[2019-01-04] MEDS: Miralax 17gm pkt ORAL SCH (21:01)
--- NOTE | 2019-01-04 21:30 | NUR ---
NURSE NOTES: Receive an order of 3% Hypertonic nebulizer from Dr. Holley to collect sputum sample. Order noted and carried out. RT made aware to get sample. Will continue to follow up.
[2019-01-04] MEDS ORDERED: Sodium Chloride 3% 4ml Nebul Soln INH SCH (22:00)
--- NOTE | 2019-01-04 23:00 | NUR ---
NURSE NOTES: Urine/sputum and influenza A&B swb had been collected and sent to lab.
--- NOTE | 2019-01-04 23:30 | NUR ---
NURSE NOTES: Pt did ambulate the unit and is lying in bed. After pain medication, pt feels comfortable and getting asleep. No respiratory distress noted. Spo2 98%. No chilling/ febrile sense noted. No N/V noted. Will continue to monitor.
[2019-01-05] VITALS: BP 110/60
[2019-01-05] MEDS: HYDROmorphone 1mg/ml Carpuject IVP PRN ×4 (01:47→18:41)
[2019-01-05 04:00] VITALS: BP 98/65
[2019-01-05] MEDS: Zosyn 3.375gm q8h **Extended infusion IVPB SCH ×6 (05:22→22:30)
[2019-01-05 06:16] LABS: BASOPHILS % (AUTO) 0.5 % (0.0-2.0); EOSINOPHILS % (AUTO) 3.2 % (0.0-3.0); HEMATOCRIT 30.9 % (37.0-47.0); HEMOGLOBIN 10.1 G/DL (12.0-16.0); LYMPHOCYTES % (AUTO) 24.7 % (20.0-45.0); MEAN CORPUSCULAR VOLUME 84 FL (80-99); NEUTROPHILS % (AUTO) 62.6 % (45.0-75.0); PLATELET COUNT 228 K/UL (150-450); RED BLOOD COUNT 3.66 M/UL (4.20-5.40); RED CELL DISTRIBUTION WIDTH 13.3 % (11.6-14.8); WHITE BLOOD COUNT 9.6 K/UL (4.8-10.8)
[2019-01-05 06:48] LABS: ANION GAP 9 mmol/L (5-15); BLOOD UREA NITROGEN 4 mg/dL (7-18); CALCIUM 7.9 MG/DL (8.5-10.1); CARBON DIOXIDE 26 MMOL/L (21-32); CHLORIDE 107 MMOL/L (98-107); CREATININE 0.7 MG/DL (0.55-1.30); POTASSIUM 3.2 MMOL/L (3.5-5.1); SODIUM 142 MMOL/L (136-145)
--- NOTE | 2019-01-05 07:25 | NUR ---
HAND-OFF: Report given to LIA Connelly. Round is done. Pt is asleep.
--- NOTE | 2019-01-05 07:26 | NUR ---
NURSE NOTES: Received patient sleeping comfortably in bed. Nasal cannula @ 2L/min. IV at right foot, 24 gauge, infusing NS @ 150 ml/hour. Bed at lowest level with 2 side rails up. Call light within reach. In no apparent distress at this time. Will continue to monitor.
[2019-01-05 08:00] VITALS: BP 102/49
--- NOTE | 2019-01-05 08:48 | General Progress Note ---
Assessment/Plan Problem List: (1) Sepsis ICD Codes: A41.9 - Sepsis, unspecified organism SNOMED: 59268753 (2) Pneumonia ICD Codes: J18.9 - Pneumonia, unspecified organism SNOMED: 840539836 (3) Wound cellulitis ICD Codes: L03.90 - Cellulitis, unspecified SNOMED: 692625451 (4) Wound dehiscence, surgical ICD Codes: T81.31XA - Disruption of external operation (surgical) wound, not elsewhere classified, initial encounter SNOMED: 177445367 Qualifiers: Qualified Codes: T81.31XA - Disruption of external operation (surgical) wound, not elsewhere classified, initial encounter (5) Surgical site infection ICD Codes: T81.49XA - Infection following a procedure, other surgical site, initial encounter SNOMED: 10244045, 980278761 (6) Hidradenitis suppurativa of right axilla ICD Codes: L73.2 - Hidradenitis suppurativa SNOMED: 417852589 (7) Crohns disease ICD Codes: K50.90 - Crohn's disease, unspecified, without complications SNOMED: 70072530 (8) Depression ICD Codes: F32.9 - Major depressive disorder, single episode, unspecified SNOMED: 08699150 (9) Anxiety ICD Codes: F41.9 - Anxiety disorder, unspecified SNOMED: 36356632 Assessment/Plan: 23 year old female with hx of Hidradenitis suppurativa presents with right axillary wound dehiscence, purulent discharge and wound cellulitis, failed outpatient treatment. she is now pod# 9 s/p right axillary debridement and flap elevation for recurrence of her hidradenitis suppurative. PD #5, flap closure. Developed sepsis secondary to Left lung base pneumonia on 01/04 (tachycardia, leukocytosis. cxr: Left lung base infiltrate) #sepsis secondary to left lung base pneumonia follow up blood cultures, sputum culture encourage incentive spirometry ID follow up- case d/w Dr. Diallo CBC, bmp- wbc trending down, afebrile now Continue Zosyn, Azithromycin and daptomycin #R axillary Hidradenitis suppurativa- wound dehiscence and cellulitis with purulent discharge #R groin hidradenitis suppurativa- patient doesn't want surgery during this hospitalization med/surg Dr. Brambila's services and recs appreciated IV antibiotics per ID consult: Daptomycin and zosyn (gm negative and MRSA coverage) f/u OR cultures and sensitivities pain control- seen by pain management consult. follow up recs. off head pumper drip IV Benadryl for pleuritis Zofran for n/v monitor vitals Blood cultures negative to date, follow up OR cultures #Crohn's- stable. Last Remicade a month ago, gets it every 8 weeks #constipation #N/V- resolved -continue to monitor closely, given history of IBD. -GI consult for constipation appreciated -Started on lactulose. she's having BMs #Hypomagnesemia, hypokalemia, hypocalcemia -Replace as needed -ionized calcium is low, will replace all electrolytes. encouraged PO intake #Depression/Anxiety- stable. Continue home fluoxetine, and Aripiprazole. #vte ppx: Heparin #GI ppx: omeprazole Code status: full code Reason for continued hospitalization: sepsis and pneumonia disposition: Home with home health services through [facility] I spent 40 minutes on this encounter. > 50% spent on counselling and care coordination. Case d/w Drs. Brambila and Imani. d/w patient time of this note may not reflect time of encounter Subjective Date patient seen: Jan 05, 2019 ROS Limited/Unobtainable: No Constitutional: Reports: no symptoms, chills, diaphoresis, fever, malaise, weakness, other - pain 07/30 HEENT: Denies: no symptoms, eye pain, blurred vision, tearing, double vision, ear pain, ear discharge, nose pain, nose congestion, throat pain, throat swelling, mouth pain, mouth swelling, other Respiratory: Reports: cough - has cough but better today Gastrointestinal/Abdominal: Denies: no symptoms, abdomen distended, abdominal pain, black stools, tarry stools, blood in stool, constipated, diarrhea, difficulty swallowing, nausea, poor appetite, poor fluid intake, rectal bleeding , vomiting, other Genitourinary: Denies: no symptoms, burning, discharge, frequency, flank pain, hematuria, incontinence, pain, urgency, other Neurologic/Psychiatric: Denies: no symptoms, anxiety, depressed, emotional problems, headache, numbness, paresthesia, pre-existing deficit, seizure, tingling, tremors, weakness, other Endocrine: Denies: no symptoms, excessive sweating, flushing, intolerance to cold, intolerance to heat, increased hunger, increased thirst, increased urine, unexplained weight gain, unexplained weight loss, other Allergies: Coded Allergies: SILVER (Verified Allergy, Mild, 06/13/18) AZATHIOPRINE (Verified Allergy, Unknown, 05/15/18) DOCUSATE (Verified Allergy, Unknown, 05/15/18) ok for oral LATEX (Verified Allergy, Unknown, 05/15/18) VANCOMYCIN (Verified Allergy, Unknown, 05/15/18) BISACODYL (Verified Adverse Reaction, Severe, Rash, 05/15/18) Uncoded Allergies: IODINE CONTRAST (Allergy, Unknown, 05/15/18) TAPE (Allergy, Unknown, 05/15/18) Subjective seen and examined. POD #8 s/p initial flap, POD #4 wound closure. Continues to have pain. This morning has low grade fever 100.6, cough and green phlegm. Denies any urinary complaints of frequency, burning, or pain. she is hoping to stop head pumper and switch to oral pain meds only. Objective Last 24 Hour Vital Signs Date Time Temp Pulse Resp B/P (MAP) Pulse Ox O2 Delivery O2 Flow Rate FiO2 01/05/19 04:00 98.2 99 18 98/65 (76) 93 01/05/19 00:00 98.3 94 20 110/60 (77) 98 01/04/19 22:25 54 16 100 Nasal Cannula 2.0 28 56 18 100 01/04/19 21:00 Nasal Cannula 2.0 01/04/19 21:00 98 Nasal Cannula 2.0 28 01/04/19 20:00 98.1 105 20 101/61 (74) 98 01/04/19 16:00 98.4 84 17 127/84 (98) 94 01/04/19 12:00 93 16 93 01/04/19 12:00 98.6 93 16 122/75 (91) 93 01/04/19 09:31 99.7 01/04/19 09:00 99.7 01/04/19 09:00 Nasal Cannula 2.0 Intake and Output 01/04/19 01/05/19 18:59 06:59 Intake Total 905.0 ml 2100 ml Balance 905.0 ml 2100 ml Intake Oral 450 ml IV Total 905.0 ml 1650 ml # Voids 5 3 # Bowel Movements 1 Laboratory Tests 01/04/19 09:55: White Blood Count 14.8#H, Red Blood Count 4.16L, Hemoglobin 11.5L, Hematocrit 33.8L, Mean Corpuscular Volume 81, Mean Corpuscular Hemoglobin 27.5, Mean Corpuscular Hemoglobin Concent 34.0, Red Cell Distribution Width 11.8, Platelet Count 233, Mean Platelet Volume 5.2L, Neutrophils (%) (Auto) 79.7H, Lymphocytes (%) (Auto) 13.6L, Monocytes (%) (Auto) 5.1, Eosinophils (%) (Auto) 1.0, Basophils (%) (Auto) 0.7, Sodium Level 132L, Potassium Level 3.6, Chloride Level 101, Carbon Dioxide Level 33H, Blood Urea Nitrogen 3L, Creatinine 0.7, Estimat Glomerular Filtration Rate > 60, Glucose Level 141H, Calcium Level 8.3L , Mycoplasma pneumoniae IgG Antibody [Pending], Mycoplasma pneumoniae IgM Ab Titer [Pending] 01/04/19 22:00: Urine Legionella Antigen [Pending] 01/05/19 05:25: White Blood Count 9.6, Red Blood Count 3.66L, Hemoglobin 10.1L, Hematocrit 30.9L , Mean Corpuscular Volume 84, Mean Corpuscular Hemoglobin 27.6, Mean Corpuscular Hemoglobin Concent 32.7, Red Cell Distribution Width 13.3, Platelet Count 228, Mean Platelet Volume 5.6L, Neutrophils (%) (Auto) 62.6, Lymphocytes ( %) (Auto) 24.7, Monocytes (%) (Auto) 9.0, Eosinophils (%) (Auto) 3.2H, Basophils (%) (Auto) 0.5, Sodium Level 142#, Potassium Level 3.2L, Chloride Level 107, Carbon Dioxide Level 26, Blood Urea Nitrogen 4L, Creatinine 0.7, Estimat Glomerular Filtration Rate > 60, Glucose Level 139H, Calcium Level 7.9L , Anion Gap 9 Height (Feet): 5 Height (Inches): 5.00 Weight (Pounds): 201 Objective General Appearance: no apparent distress, alert, non-toxic Head: normocephalic, atraumatic Eyes: bilateral eye normal inspection, bilateral eye PERRL Neck: full range of motion Respiratory: lungs clear, normal breath sounds, speaking full sentences Cardiovascular: regular rate, rhythm, no m/r/g gastrointestinal: obese, soft, healed laparoscopic scars, non tender, non distended Musculoskeletal: decreased range of motion right arm due to pain Genitourinary: healed scars from previous hidradenitis, new abscess right groin adjacent to labia majora, extremely tender Neurologic: alert, oriented x3, grossly normal Psychiatric: judgement/insight normal Skin: Right axilla +erythema, sutures in place, clean, intact, no purulence. there is evidence of contact dermatitis, vesicles from tape allergy . Isidro Johnson M.D. Jan 05, 2019 08:48
[2019-01-05] MEDS: Lactulose 10gm/15ml UDC ORAL SCH ×3 (09:00→18:00)
[2019-01-05] MEDS: Relistor 12mg/0.6ml Vial SUBQ SCH (09:38)
[2019-01-05] MEDS: Neosporin Oint 15gm TOPIC SCH (09:38)
[2019-01-05] MEDS: Heparin 5000 units/ml inj SUBQ SCH ×2 (09:45→21:51)
[2019-01-05 12:00] VITALS: BP 107/65
--- NOTE | 2019-01-05 13:22 | General Progress Note ---
Progress Note Progress Note Pt seen and examined. Doing much better today. AVSS and wbc down. Flap in tact and viable. Appreciate ID input. Plan on dc home on Monday. Sagar Campbell MD, MD Jan 05, 2019 13:22
[2019-01-05] MEDS: DiphenhydrAMINE 50mg/ml Inj IVP PRN ×2 (15:29→21:52)
[2019-01-05 16:00] VITALS: BP 124/51
[2019-01-05] MEDS ORDERED: Tubing IV Secondary IV ONE (16:31)
[2019-01-05] MEDS ORDERED: NS 275ml ONE (16:31)
[2019-01-05] MEDS: Azithromycin 500mg/D5W 275ml IV SCH ×2 (17:13)
[2019-01-05] MEDS: DAPTOmycin 500 MG in NS 50 ML IV SCH (18:21)
[2019-01-05] MEDS ORDERED: DiphenhydrAMINE 50mg/ml Inj IVP PRN (19:21)
[2019-01-05] MEDS: HydrOXYzine tab 25mg tab ORAL PRN (19:27)
--- NOTE | 2019-01-05 19:51 | NUR ---
HAND-OFF: Report given to LIA Lopez.
--- NOTE | 2019-01-05 19:55 | NUR ---
NURSE NOTES: Received report from LIA Connelly. Rounds done. Patient alert, oriented. IV infusing well in L foot. Incision R axillae, YAA, clean, no discharge noted. Bed in low position, locked, side rails up x2, call light within reach. Patient able to ambulate on her own, tolerating very well. Will continue to monitor.
[2019-01-05 20:00] VITALS: BP 108/66
--- NOTE | 2019-01-05 20:50 | NUR ---
NURSE NOTES: Complained of pain /10, given PO med per orders. Observed patient pushing IV pump buttons to stop beeping thus placing IV infusion on hold. Instructed not to touch IV equipment and encouraged to call nurse so that we can assess and fix any problem with IV, ensuring she receives IVF as ordered. Patient verbalizes understanding. Encouraged use of incentive spirometer, states she has done it a few times today. Instructed to use IS 10 times per hour while awake. Patient verbalizes understanding. Will continue to monitor.
[2019-01-05] MEDS: Miralax 17gm pkt ORAL SCH (21:00)
--- NOTE | 2019-01-06 00:39 | NUR ---
NURSE NOTES: Patient asleep, respiration unlabored, IV infusing well. No apparent distress noted. Will continue to monitor.
[2019-01-06 01:00] VITALS: BP 108/66
[2019-01-06] MEDS: HYDROmorphone 1mg/ml Carpuject IVP PRN ×3 (01:07→10:09)
[2019-01-06 04:00] VITALS: BP 101/63
[2019-01-06] MEDS: DiphenhydrAMINE 50mg/ml Inj IVP PRN (04:43)
[2019-01-06 05:46] LABS: BASOPHILS % (AUTO) 1.7 % (0.0-2.0); EOSINOPHILS % (AUTO) 5.7 % (0.0-3.0); HEMATOCRIT 30.1 % (37.0-47.0); HEMOGLOBIN 9.7 G/DL (12.0-16.0); LYMPHOCYTES % (AUTO) 49.7 % (20.0-45.0); MEAN CORPUSCULAR VOLUME 84 FL (80-99); MONOCYTES % (AUTO) 8.3 % (1.0-10.0); NEUTROPHILS % (AUTO) 34.6 % (45.0-75.0); PLATELET COUNT 160 K/UL (150-450); RED BLOOD COUNT 3.57 M/UL (4.20-5.40); RED CELL DISTRIBUTION WIDTH 13.3 % (11.6-14.8); WHITE BLOOD COUNT 6.6 K/UL (4.8-10.8)
[2019-01-06 05:58] LABS: ANION GAP 9 mmol/L (5-15); BLOOD UREA NITROGEN 7 mg/dL (7-18); CALCIUM 7.7 MG/DL (8.5-10.1); CARBON DIOXIDE 24 MMOL/L (21-32); CHLORIDE 109 MMOL/L (98-107); CREATININE 0.7 MG/DL (0.55-1.30); POTASSIUM 3.9 MMOL/L (3.5-5.1); SODIUM 142 MMOL/L (136-145)
[2019-01-06] MEDS: Zosyn 3.375gm q8h **Extended infusion IVPB SCH ×2 (06:33)
--- NOTE | 2019-01-06 07:35 | NUR ---
HAND-OFF: Report given to LIA Reyes.
--- NOTE | 2019-01-06 07:45 | NUR ---
NURSE NOTES: Received report from Jessica FITZGERALD. Patient is awake and oriented, no acute distress noted, reporting pain rated 7/10 in right axilla. Surgical site clean and dry, open to air. IV intact, patent, running IVF per order. Patient updated on plan of care for the day. Patient educated to walk as tolerated and use IS every hour, patient in agreement. Side rails upx2, bed low and locked, call light within reach.
[2019-01-06 08:00] VITALS: BP 107/67
[2019-01-06] MEDS: Lactulose 10gm/15ml UDC ORAL SCH ×4 (08:37→18:00)
[2019-01-06] MEDS: HydrOXYzine tab 25mg tab ORAL PRN (08:37)
[2019-01-06] MEDS: Heparin 5000 units/ml inj SUBQ SCH ×2 (08:39→20:14)
[2019-01-06] MEDS: Neosporin Oint 15gm TOPIC SCH (08:45)
--- NOTE | 2019-01-06 09:38 | General Progress Note ---
Assessment/Plan Problem List: (1) Sepsis ICD Codes: A41.9 - Sepsis, unspecified organism SNOMED: 63559269 (2) Pneumonia ICD Codes: J18.9 - Pneumonia, unspecified organism SNOMED: 150656744 (3) Wound cellulitis ICD Codes: L03.90 - Cellulitis, unspecified SNOMED: 640562124 (4) Wound dehiscence, surgical ICD Codes: T81.31XA - Disruption of external operation (surgical) wound, not elsewhere classified, initial encounter SNOMED: 051398337 Qualifiers: Qualified Codes: T81.31XA - Disruption of external operation (surgical) wound, not elsewhere classified, initial encounter (5) Surgical site infection ICD Codes: T81.49XA - Infection following a procedure, other surgical site, initial encounter SNOMED: 97883931, 401733473 (6) Hidradenitis suppurativa of right axilla ICD Codes: L73.2 - Hidradenitis suppurativa SNOMED: 204271427 (7) Crohns disease ICD Codes: K50.90 - Crohn's disease, unspecified, without complications SNOMED: 86517720 (8) Depression ICD Codes: F32.9 - Major depressive disorder, single episode, unspecified SNOMED: 87112568 (9) Anxiety ICD Codes: F41.9 - Anxiety disorder, unspecified SNOMED: 18482353 Assessment/Plan: 23 year old female with hx of Hidradenitis suppurativa presents with right axillary wound dehiscence, purulent discharge and wound cellulitis, failed outpatient treatment. she is now pod# 10 s/p right axillary debridement and flap elevation for recurrence of her hidradenitis suppurative. PD #6, flap closure. Developed sepsis secondary to Left lung base pneumonia on 01/04 ( tachycardia, leukocytosis. cxr: Left lung base infiltrate) #sepsis secondary to left lung base pneumonia ?cap ? aspiration- resolving follow up blood cultures, sputum culture- negative encourage incentive spirometry ID follow up- case d/w Dr. Diallo CBC, bmp- wbc trending down, afebrile now Continue Zosyn, Azithromycin and daptomycin DC planning for tomorrow with home health for wound care. Will discuss with ID regarding PO antibiotic choice for discharge #R axillary Hidradenitis suppurativa- wound dehiscence and cellulitis with purulent discharge #R groin hidradenitis suppurativa- patient doesn't want surgery during this hospitalization med/surg Dr. Brambila's services and recs appreciated IV antibiotics per ID consult: Daptomycin and zosyn (gm negative and MRSA coverage) f/u OR cultures and sensitivities pain control- seen by pain management consult. follow up recs. off lead athlete drip IV Benadryl for pleuritis Zofran for n/v monitor vitals Blood cultures negative to date, follow up OR cultures #Crohn's- stable. Last Remicade a month ago, gets it every 8 weeks #constipation #N/V- resolved -continue to monitor closely, given history of IBD. -GI consult for constipation appreciated -Started on lactulose. she's having BMs #Hypomagnesemia, hypokalemia, hypocalcemia -Replace as needed -ionized calcium is low, will replace all electrolytes. encouraged PO intake #Depression/Anxiety- stable. Continue home fluoxetine, and Aripiprazole. #vte ppx: Heparin #GI ppx: omeprazole Code status: full code Reason for continued hospitalization: sepsis and pneumonia disposition: [facility] spent [facility] minutes on this encounter. > 50% spent on counselling and care coordination. Case d/w Drs. Brambila and Imani. d/w patient time of this note may not reflect time of encounter Subjective Date patient seen: Jan 06, 2019 ROS Limited/Unobtainable: No Constitutional: Denies: no symptoms, chills, diaphoresis, fever, malaise, weakness, other HEENT: Denies: no symptoms, eye pain, blurred vision, tearing, double vision, ear pain, ear discharge, nose pain, nose congestion, throat pain, throat swelling, mouth pain, mouth swelling, other Cardiovascular: Denies: no symptoms, chest pain, edema, irregular heart rate, lightheadedness, palpitations, syncope, other Respiratory: Reports: cough - improving cough Gastrointestinal/Abdominal: Denies: no symptoms, abdomen distended, abdominal pain, black stools, tarry stools, blood in stool, constipated, diarrhea, difficulty swallowing, nausea, poor appetite, poor fluid intake, rectal bleeding , vomiting, other Genitourinary: Denies: no symptoms, burning, discharge, frequency, flank pain, hematuria, incontinence, pain, urgency, other Neurologic/Psychiatric: Denies: no symptoms, anxiety, depressed, emotional problems, headache, numbness, paresthesia, pre-existing deficit, seizure, tingling, tremors, weakness, other Endocrine: Denies: no symptoms, excessive sweating, flushing, intolerance to cold, intolerance to heat, increased hunger, increased thirst, increased urine, unexplained weight gain, unexplained weight loss, other Hematologic/Lymphatic: Denies: no symptoms, anemia, easy bleeding, easy bruising, other Allergies: Coded Allergies: SILVER (Verified Allergy, Mild, 06/13/18) AZATHIOPRINE (Verified Allergy, Unknown, 05/15/18) DOCUSATE (Verified Allergy, Unknown, 05/15/18) ok for oral LATEX (Verified Allergy, Unknown, 05/15/18) VANCOMYCIN (Verified Allergy, Unknown, 05/15/18) BISACODYL (Verified Adverse Reaction, Severe, Rash, 05/15/18) Uncoded Allergies: IODINE CONTRAST (Allergy, Unknown, 05/15/18) TAPE (Allergy, Unknown, 05/15/18) Subjective seen and examined. POD #10 s/p initial flap, POD # 6 wound closure. In much better spirits today. Pain is better. She is walking around and using incentive spirometry. Her cough is improving. Afebrile, wbc normal. blood cultures negative to date, sputum culture normal respiratory irma. Objective Last 24 Hour Vital Signs Date Time Temp Pulse Resp B/P (MAP) Pulse Ox O2 Delivery O2 Flow Rate FiO2 01/06/19 08:00 98.4 68 16 107/67 (80) 96 01/06/19 04:00 98.1 73 16 101/63 (76) 97 01/06/19 01:00 97.6 81 18 108/66 (80) 97 01/05/19 21:00 Room Air 01/05/19 20:00 98 Room Air 21 01/05/19 20:00 98.9 75 18 108/66 (80) 98 01/05/19 19:11 98.8 01/05/19 16:39 98.8 01/05/19 16:00 98.6 86 18 124/51 (75) 96 01/05/19 12:00 98.8 88 18 107/65 (79) 94 Intake and Output 01/05/19 01/06/19 18:59 06:59 Intake Total 650 ml 600 ml Balance 650 ml 600 ml Intake Oral 500 ml IV Total 150 ml 600 ml # Bowel Movements 1 Laboratory Tests 01/06/19 05:00: White Blood Count 6.6, Red Blood Count 3.57L, Hemoglobin 9.7L, Hematocrit 30.1L , Mean Corpuscular Volume 84, Mean Corpuscular Hemoglobin 27.2, Mean Corpuscular Hemoglobin Concent 32.2, Red Cell Distribution Width 13.3, Platelet Count 160, Mean Platelet Volume 5.6L, Neutrophils (%) (Auto) 34.6L, Lymphocytes (%) (Auto) 49.7H, Monocytes (%) (Auto) 8.3, Eosinophils (%) (Auto) 5.7H, Basophils (%) (Auto) 1.7, Sodium Level 142, Potassium Level 3.9, Chloride Level 109H, Carbon Dioxide Level 24, Anion Gap 9, Blood Urea Nitrogen 7, Creatinine 0.7, Estimat Glomerular Filtration Rate > 60, Glucose Level 136H, Calcium Level 7.7L Height (Feet): 5 Height (Inches): 5.00 Weight (Pounds): 201 Objective General Appearance: no apparent distress, alert, non-toxic Head: normocephalic, atraumatic Eyes: bilateral eye normal inspection, bilateral eye PERRL Neck: full range of motion Respiratory: lungs clear, normal breath sounds, speaking full sentences Cardiovascular: regular rate, rhythm, no m/r/g gastrointestinal: obese, soft, healed laparoscopic scars, non tender, non distended Musculoskeletal: decreased range of motion right arm due to pain Genitourinary: healed scars from previous hidradenitis, new abscess right groin adjacent to labia majora, extremely tender Neurologic: alert, oriented x3, grossly normal Psychiatric: judgement/insight normal Skin: Right axilla +erythema, sutures in place, clean, intact, no purulence. there is evidence of contact dermatitis, vesicles from tape allergy . Isidro Johnson M.D. Jan 06, 2019 09:38
--- NOTE | 2019-01-06 09:39 | General Progress Note ---
Assessment/Plan Problem List: (1) Sepsis ICD Codes: A41.9 - Sepsis, unspecified organism SNOMED: 75287675 (2) Pneumonia ICD Codes: J18.9 - Pneumonia, unspecified organism SNOMED: 311853401 (3) Wound cellulitis ICD Codes: L03.90 - Cellulitis, unspecified SNOMED: 360962749 (4) Wound dehiscence, surgical ICD Codes: T81.31XA - Disruption of external operation (surgical) wound, not elsewhere classified, initial encounter SNOMED: 485768933 Qualifiers: Qualified Codes: T81.31XA - Disruption of external operation (surgical) wound, not elsewhere classified, initial encounter (5) Surgical site infection ICD Codes: T81.49XA - Infection following a procedure, other surgical site, initial encounter SNOMED: 43602031, 741307570 (6) Hidradenitis suppurativa of right axilla ICD Codes: L73.2 - Hidradenitis suppurativa SNOMED: 471033130 (7) Crohns disease ICD Codes: K50.90 - Crohn's disease, unspecified, without complications SNOMED: 62632956 (8) Depression ICD Codes: F32.9 - Major depressive disorder, single episode, unspecified SNOMED: 19428154 (9) Anxiety ICD Codes: F41.9 - Anxiety disorder, unspecified SNOMED: 40029332 Assessment/Plan: 23 year old female with hx of Hidradenitis suppurativa presents with right axillary wound dehiscence, purulent discharge and wound cellulitis, failed outpatient treatment. she is now pod# 9 s/p right axillary debridement and flap elevation for recurrence of her hidradenitis suppurative. PD #5, flap closure. Developed sepsis secondary to Left lung base pneumonia on 01/04 (tachycardia, leukocytosis. cxr: Left lung base infiltrate) #sepsis secondary to left lung base pneumonia follow up blood cultures, sputum culture encourage incentive spirometry ID follow up- case d/w Dr. Diallo CBC, bmp- wbc trending down, afebrile now Continue Zosyn, Azithromycin and daptomycin #R axillary Hidradenitis suppurativa- wound dehiscence and cellulitis with purulent discharge #R groin hidradenitis suppurativa- patient doesn't want surgery during this hospitalization med/surg Dr. Brambila's services and recs appreciated IV antibiotics per ID consult: Daptomycin and zosyn (gm negative and MRSA coverage) f/u OR cultures and sensitivities pain control- seen by pain management consult. follow up recs. off medical leader drip IV Benadryl for pleuritis Zofran for n/v monitor vitals Blood cultures negative to date, follow up OR cultures #Crohn's- stable. Last Remicade a month ago, gets it every 8 weeks #constipation #N/V- resolved -continue to monitor closely, given history of IBD. -GI consult for constipation appreciated -Started on lactulose. she's having BMs #Hypomagnesemia, hypokalemia, hypocalcemia -Replace as needed -ionized calcium is low, will replace all electrolytes. encouraged PO intake #Depression/Anxiety- stable. Continue home fluoxetine, and Aripiprazole. #vte ppx: Heparin #GI ppx: omeprazole Code status: full code Reason for continued hospitalization: sepsis and pneumonia disposition: Home with home health services through [facility] I spent 40 minutes on this encounter. > 50% spent on counselling and care coordination. Case d/w Drs. Brambila and Imani. d/w patient time of this note may not reflect time of encounter Subjective Allergies: Coded Allergies: SILVER (Verified Allergy, Mild, 06/13/18) AZATHIOPRINE (Verified Allergy, Unknown, 05/15/18) DOCUSATE (Verified Allergy, Unknown, 05/15/18) ok for oral LATEX (Verified Allergy, Unknown, 05/15/18) VANCOMYCIN (Verified Allergy, Unknown, 05/15/18) BISACODYL (Verified Adverse Reaction, Severe, Rash, 05/15/18) Uncoded Allergies: IODINE CONTRAST (Allergy, Unknown, 05/15/18) TAPE (Allergy, Unknown, 05/15/18) Subjective seen and examined. POD #8 s/p initial flap, POD #4 wound closure. Continues to have pain. This morning has low grade fever 100.6, cough and green phlegm. Denies any urinary complaints of frequency, burning, or pain. she is hoping to stop medical leader and switch to oral pain meds only. Objective Last 24 Hour Vital Signs Date Time Temp Pulse Resp B/P (MAP) Pulse Ox O2 Delivery O2 Flow Rate FiO2 01/06/19 08:00 98.4 68 16 107/67 (80) 96 01/06/19 04:00 98.1 73 16 101/63 (76) 97 01/06/19 01:00 97.6 81 18 108/66 (80) 97 01/05/19 21:00 Room Air 01/05/19 20:00 98 Room Air 21 01/05/19 20:00 98.9 75 18 108/66 (80) 98 01/05/19 19:11 98.8 01/05/19 16:39 98.8 01/05/19 16:00 98.6 86 18 124/51 (75) 96 01/05/19 12:00 98.8 88 18 107/65 (79) 94 Intake and Output 01/05/19 01/06/19 19:00 07:00 Intake Total 500 ml 600 ml Balance 500 ml 600 ml Intake Oral 500 ml IV Total 600 ml # Bowel Movements 1 Laboratory Tests 01/06/19 05:00: White Blood Count 6.6, Red Blood Count 3.57L, Hemoglobin 9.7L, Hematocrit 30.1L , Mean Corpuscular Volume 84, Mean Corpuscular Hemoglobin 27.2, Mean Corpuscular Hemoglobin Concent 32.2, Red Cell Distribution Width 13.3, Platelet Count 160, Mean Platelet Volume 5.6L, Neutrophils (%) (Auto) 34.6L, Lymphocytes (%) (Auto) 49.7H, Monocytes (%) (Auto) 8.3, Eosinophils (%) (Auto) 5.7H, Basophils (%) (Auto) 1.7, Sodium Level 142, Potassium Level 3.9, Chloride Level 109H, Carbon Dioxide Level 24, Anion Gap 9, Blood Urea Nitrogen 7, Creatinine 0.7, Estimat Glomerular Filtration Rate > 60, Glucose Level 136H, Calcium Level 7.7L Height (Feet): 5 Height (Inches): 5.00 Weight (Pounds): 201 Objective General Appearance: no apparent distress, alert, non-toxic Head: normocephalic, atraumatic Eyes: bilateral eye normal inspection, bilateral eye PERRL Neck: full range of motion Respiratory: lungs clear, normal breath sounds, speaking full sentences Cardiovascular: regular rate, rhythm, no m/r/g gastrointestinal: obese, soft, healed laparoscopic scars, non tender, non distended Musculoskeletal: decreased range of motion right arm due to pain Genitourinary: healed scars from previous hidradenitis, new abscess right groin adjacent to labia majora, extremely tender Neurologic: alert, oriented x3, grossly normal Psychiatric: judgement/insight normal Skin: Right axilla +erythema, sutures in place, clean, intact, no purulence. there is evidence of contact dermatitis, vesicles from tape allergy . Isidro Johnson M.D. Jan 06, 2019 09:39
[2019-01-06] MEDS ORDERED: Tubing IV Secondary IV ONE (10:28)
--- NOTE | 2019-01-06 11:51 | NUR ---
NURSE NOTES: Unable to administer patient's IVP dilaudid due to inability to obtain IV access. Patient currently has no IV access, access attempted by two nurses with vein finder. Dilaudid wasted with second nurse witness Monroe FITZGERALD. Pharmacist Steffanie notified and aware. Administration undone.
--- NOTE | 2019-01-06 11:57 | NUR ---
NURSE NOTES: Informed ADITI Aldana that unable to obtain IV access and administer breakthrough pain medication. PA gave order to change breakthrough dilaudid to subcut. Order entered.
[2019-01-06 12:00] VITALS: BP 123/73
--- NOTE | 2019-01-06 13:06 | General Progress Note ---
Assessment/Plan Assessment/Plan: (1) Recurrent axillary hidradenitis with active abscess and drainage (2) S/p Radical excision of right axillary tissue (3) Right Axilla pain Patient will be continued on Dilaudid IV and Percocet D/w Dr. Long and he concurred. Subjective Date patient seen: Jan 06, 2019 Time patient seen: 12:15 - pm Allergies: Coded Allergies: SILVER (Verified Allergy, Mild, 06/13/18) AZATHIOPRINE (Verified Allergy, Unknown, 05/15/18) DOCUSATE (Verified Allergy, Unknown, 05/15/18) ok for oral LATEX (Verified Allergy, Unknown, 05/15/18) VANCOMYCIN (Verified Allergy, Unknown, 05/15/18) BISACODYL (Verified Adverse Reaction, Severe, Rash, 05/15/18) Uncoded Allergies: IODINE CONTRAST (Allergy, Unknown, 05/15/18) TAPE (Allergy, Unknown, 05/15/18) Subjective Constitutional: Reports: no symptoms HEENT: Reports: no symptoms Cardiovascular: Reports: no symptoms Respiratory: Reports: cough Gastrointestinal/Abdominal: Reports: no symptoms Genitourinary: Reports: no symptoms Neurologic/Psychiatric: Reports: no symptoms Endocrine: Reports: no symptoms Hematologic/Lymphatic: Reports: no symptoms Subjective Patient is denies pain at this time using 5 doses of Dilaudid and 5 doses of Percocet in the last 24hrs. Having issues with IV placement will switch IV to SUBQ. Pt seems to understand. No new complaints at this time. Objective Last 24 Hour Vital Signs Date Time Temp Pulse Resp B/P (MAP) Pulse Ox O2 Delivery O2 Flow Rate FiO2 01/06/19 12:00 97.6 74 16 123/73 (90) 97 01/06/19 09:00 Room Air 01/06/19 08:00 98.4 68 16 107/67 (80) 96 01/06/19 04:00 98.1 73 16 101/63 (76) 97 01/06/19 01:00 97.6 81 18 108/66 (80) 97 01/05/19 21:00 Room Air 01/05/19 20:00 98 Room Air 21 01/05/19 20:00 98.9 75 18 108/66 (80) 98 01/05/19 19:11 98.8 11/16/19 16:39 98.8 01/05/19 16:00 98.6 86 18 124/51 (75) 96 Intake and Output 01/05/19 01/06/19 18:59 06:59 Intake Total 650 ml 600 ml Balance 650 ml 600 ml Intake Oral 500 ml IV Total 150 ml 600 ml # Bowel Movements 1 Laboratory Tests 01/06/19 05:00: White Blood Count 6.6, Red Blood Count 3.57L, Hemoglobin 9.7L, Hematocrit 30.1L , Mean Corpuscular Volume 84, Mean Corpuscular Hemoglobin 27.2, Mean Corpuscular Hemoglobin Concent 32.2, Red Cell Distribution Width 13.3, Platelet Count 160, Mean Platelet Volume 5.6L, Neutrophils (%) (Auto) 34.6L, Lymphocytes (%) (Auto) 49.7H, Monocytes (%) (Auto) 8.3, Eosinophils (%) (Auto) 5.7H, Basophils (%) (Auto) 1.7, Sodium Level 142, Potassium Level 3.9, Chloride Level 109H, Carbon Dioxide Level 24, Anion Gap 9, Blood Urea Nitrogen 7, Creatinine 0.7, Estimat Glomerular Filtration Rate > 60, Glucose Level 136H, Calcium Level 7.7L Height (Feet): 5 Height (Inches): 5.00 Weight (Pounds): 201 Objective General Appearance: no apparent distress, alert EENT: PERRL/EOMI, normal ENT inspection Neck: non-tender, normal alignment Respiratory/Chest: lungs clear, normal breath sounds Abdomen: normal bowel sounds, non tender Extremities: other - right axilla bandages noted Edema: no edema noted Generalized Neurologic: alert, oriented x 3 Skin: normal pigmentation Hao Aldana Jan 06, 2019 13:06
--- NOTE | 2019-01-06 13:12 | NUR ---
NURSE NOTES: Informed Dr. Diallo patient did not received dull dose of Zosyn IV due to inability to keep IV access. aware. Addendum: 01/06/19 at 1515 by Amy Macedo RN Edit: full dose of Zosyn
--- NOTE | 2019-01-06 13:17 | NUR ---
NURSE NOTES: Dr. Johnson informed and aware that patient has no IV access. Patient refusing further IV insertion attempts at this time.
--- NOTE | 2019-01-06 13:20 | Infectious Diseases Prog Note ---
Assessment/Plan Assessment/Plan ASSESSMENT AND PLAN: 1. right axilla wound infection/abscess/cellulitis, mild leukocytosis, hidradenitis suppurativa, new right groin abscess that spontaneously drained now with fevers, leukocytosis, ? sepsis, sirs, left pna - ? aspiration/hcap , ? cap - no iv access - change to oral doxycycline and augmentin x 1 week - monitor labs and chest x-ray as indicated - s/p debridement and closure - discussed with Dr. Johnson - surgery f/u - Dr. Brambila 2. Depression. 3. Anxiety. 4. Crohn's disease. 5. History of colectomy. On Remicade. 6. Hidradenitis suppurativa. 7. History of colectomy. 8. Allergies to azathioprine, bisacodyl, docusate, iodine, vancomycin, latex, and silver tape. 9. Family history is positive for depression, anxiety, and Crohn's. 10. Social history is negative. 11. MAR was noted. 12. Case was discussed with RN. 13. Case was discussed with Dr. Johnson. 14. Continue treatment per primary consultants. Subjective Constitutional: Denies: fever HEENT: Denies: congestion Respiratory: Denies: shortness of breath Cardiovascular: Denies: chest pain Gastrointestinal/Abdominal: Denies: nausea, vomiting, diarrhea Genitourinary: Reports: other - no Neurologic: Denies: headache Psychiatric: Denies: depression Skin: Denies: rash Hematologic: Denies: bleeding Musculoskeletal: Denies: pain Allergies: Coded Allergies: SILVER (Verified Allergy, Mild, 06/13/18) AZATHIOPRINE (Verified Allergy, Unknown, 05/15/18) DOCUSATE (Verified Allergy, Unknown, 05/15/18) ok for oral LATEX (Verified Allergy, Unknown, 05/15/18) VANCOMYCIN (Verified Allergy, Unknown, 05/15/18) BISACODYL (Verified Adverse Reaction, Severe, Rash, 05/15/18) Uncoded Allergies: IODINE CONTRAST (Allergy, Unknown, 05/15/18) TAPE (Allergy, Unknown, 05/15/18) Objective Vital Signs Last 24 Hour Vital Signs Date Time Temp Pulse Resp B/P (MAP) Pulse Ox O2 Delivery O2 Flow Rate FiO2 01/06/19 12:00 97.6 74 16 123/73 (90) 97 01/06/19 09:00 Room Air 01/06/19 08:00 98.4 68 16 107/67 (80) 96 01/06/19 04:00 98.1 73 16 101/63 (76) 97 01/06/19 01:00 97.6 81 18 108/66 (80) 97 01/05/19 21:00 Room Air 01/05/19 20:00 98 Room Air 21 01/05/19 20:00 98.9 75 18 108/66 (80) 98 01/05/19 19:11 98.8 01/05/19 16:39 98.8 01/05/19 16:00 98.6 86 18 124/51 (75) 96 Height (Feet): 5 Height (Inches): 5.00 Weight (Pounds): 201 General Appearance: no acute distress HEENT: normocephalic, atraumatic, anicteric Respiratory/Chest: lungs clear, normal breath sounds, no respiratory distress, no accessory muscle use Cardiovascular: normal rate, regular rhythm, no gallop/murmur, no JVD Abdomen: normal bowel sounds, soft, non tender, no organomegaly, non distended Genitourinary: other - no santana Extremities: no cyanosis Skin: no rash 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 Consider pneumonia. Correlate clinically. Minimal volume loss also noted with slight elevation of the left hemidiaphragm. Bones are unremarkable. Heart size is normal. IMPRESSION: Pneumonia suspected at the left lung base. Correlate clinically Microbiology Date/Time Source Procedure Growth Status 01/04/19 09:55 Blood Blood Culture - Preliminary NO GROWTH AFTER 24 HOURS Resulted 01/04/19 09:50 Blood Blood Culture - Preliminary NO GROWTH AFTER 24 HOURS Resulted 01/04/19 23:00 Nasal Nares - Final Complete 01/04/19 23:00 Nasal Nares - Final Complete 01/04/19 22:30 Sputum Gram Stain - Final Resulted 01/04/19 22:30 Sputum Sputum Culture - Preliminary NORMAL UPPER RESPIRATORY KELLEY AT 24 ... Resulted Laboratory Tests Test 01/06/19 05:00 White Blood Count 6.6 K/UL (4.8-10.8) Red Blood Count 3.57 M/UL (4.20-5.40) L Hemoglobin 9.7 G/DL (12.0-16.0) L Hematocrit 30.1 % (37.0-47.0) L Mean Corpuscular Volume 84 FL (80-99) Mean Corpuscular Hemoglobin 27.2 PG (27.0-31.0) Mean Corpuscular Hemoglobin Concent 32.2 G/DL (32.0-36.0) Red Cell Distribution Width 13.3 % (11.6-14.8) Platelet Count 160 K/UL (150-450) Mean Platelet Volume 5.6 FL (6.5-10.1) L Neutrophils (%) (Auto) 34.6 % (45.0-75.0) L Lymphocytes (%) (Auto) 49.7 % (20.0-45.0) H Monocytes (%) (Auto) 8.3 % (1.0-10.0) Eosinophils (%) (Auto) 5.7 % (0.0-3.0) H Basophils (%) (Auto) 1.7 % (0.0-2.0) Sodium Level 142 MMOL/L (136-145) Potassium Level 3.9 MMOL/L (3.5-5.1) Chloride Level 109 MMOL/L (98-107) H Carbon Dioxide Level 24 MMOL/L (21-32) Anion Gap 9 mmol/L (5-15) Blood Urea Nitrogen 7 mg/dL (7-18) Creatinine 0.7 MG/DL (0.55-1.30) Estimat Glomerular Filtration Rate > 60 mL/min (>60) Glucose Level 136 MG/DL (74-106) H Calcium Level 7.7 MG/DL (8.5-10.1) L Current Medications Medications (Trade) Dose Ordered Sig/Alix Route PRN Reason Start Time Stop Time Status Last Admin Dose Admin Acetaminophen (Tylenol) 650 mg Q4H PRN ORAL Mild Pain (Pain Scale 1-3) 12/26/18 20:15 01/25/19 20:14 Acetaminophen (Tylenol) 650 mg Q4H PRN ORAL FEVER (temp>100.5F) 12/27/18 13:45 01/26/19 13:44 01/04/19 09:01 Acetaminophen (Tylenol) 650 mg Q4H PRN RECTAL Mild Pain (Pain Scale 1-3) 12/26/18 20:15 01/25/19 20:14 Acetaminophen (Tylenol) 650 mg Q4H PRN RECTAL fever 12/26/18 20:15 01/25/19 20:14 Al Hydroxide/Mg Hydroxide (Mylanta II) 30 ml Q6H PRN ORAL dyspepsia 12/26/18 20:15 01/25/19 20:14 Amoxicillin/ Clavulanate Potassium (Augmentin) 875 mg EVERY 12 HOURS ORAL 01/06/19 21:00 01/13/19 20:59 UNV Aripiprazole (Abilify) 2.5 mg DAILY ORAL 12/27/18 09:00 01/26/19 08:59 01/06/19 08:38 Dextrose (Dextrose 50%) 25 ml Q30M PRN IV Hypoglycemia 12/26/18 20:15 01/25/19 20:14 Dextrose (Dextrose 50%) 50 ml Q30M PRN IV Hypoglycemia 12/26/18 20:15 01/25/19 20:14 Diphenhydramine HCl (Benadryl) 25 mg Q6H PRN IVP Itching/Pruritis 01/05/19 19:30 02/04/19 19:20 01/06/19 04:43 Fluoxetine HCl (PROzac) 40 mg DAILY ORAL 12/27/18 09:00 01/26/19 08:59 01/06/19 08:37 Heparin Sodium (Porcine) (Heparin 5000 units/ml) 5,000 units EVERY 12 HOURS SUBQ 12/27/18 21:00 01/26/19 20:59 01/06/19 08:39 Hydromorphone HCl (Dilaudid) 1 mg Q3H PRN SUBQ Breakthrough Pain 01/06/19 12:30 01/09/19 08:59 Hydroxyzine HCl (Atarax) 25 mg Q6H PRN ORAL Itching 01/05/19 19:21 02/04/19 19:20 01/06/19 08:37 Lactulose (Cephulac) 10 gm THREE TIMES A DAY ORAL 01/01/19 13:00 01/31/19 12:59 01/03/19 12:14 Magnesium Hydroxide (Mom) 30 ml HSPRN PRN ORAL Constipation 12/26/18 20:15 01/25/19 20:14 Methocarbamol (Robaxin) 500 mg Q4H PRN ORAL spasms 12/26/18 20:15 01/25/19 20:14 Methylnaltrexone [place] (Relistor) 12 mg QOD SUBQ 01/03/19 09:00 02/02/19 08:59 01/05/19 09:38 Metoclopramide HCl (Reglan) 10 mg Q6H PRN IVP Nausea & Vomiting 12/26/18 20:15 01/25/19 20:14 12/28/18 03:43 Neomycin/ Polymyxin/ Bacitracin (Neosporin Oint 15gm) 1 applic DAILY TOPIC 01/01/19 21:00 01/31/19 20:59 01/05/19 09:38 Nitroglycerin (Ntg) 0.4 mg Q5M X 3 DOSES PRN SL Prn Chest Pain 12/26/18 20:15 01/25/19 20:14 Ondansetron HCl (Zofran) 4 mg Q6H PRN IVP Nausea & Vomiting 12/27/18 13:45 01/26/19 13:44 01/05/19 18:21 Oxycodone/ Acetaminophen (Percocet 10/325) 1 tab Q4H PRN ORAL Severe Pain (Pain Scale 7-10) 01/04/19 09:24 01/11/19 09:23 01/06/19 12:43 Pantoprazole (Protonix) 40 mg DAILY ORAL 12/27/18 09:00 01/26/19 08:59 01/06/19 08:37 Polyethylene Glycol (Miralax) 17 gm BEDTIME ORAL 12/30/18 21:00 01/29/19 20:59 01/04/19 21:01 Polyethylene Glycol (Miralax) 17 gm HSPRN PRN ORAL Constipation 12/26/18 20:15 01/25/19 20:14 Prochlorperazine (Compazine) 10 mg Q6H PRN IVP Nausea & Vomiting 12/26/18 20:15 01/25/19 20:14 12/29/18 10:42 Niya Holley MD Jan 06, 2019 13:20
[2019-01-06] MEDS: HYDROmorphone 1mg/ml Carpuject SUBQ PRN ×2 (15:07→20:13)
[2019-01-06 16:00] VITALS: BP 112/69
--- NOTE | 2019-01-06 19:28 | NUR ---
HAND-OFF: Report given to Dolores FITZGERALD.
[2019-01-06 20:00] VITALS: BP 108/62
[2019-01-06] MEDS: Augmentin 875mg Tab ORAL SCH (20:13)
[2019-01-06] MEDS: Doxycycline Monohydrate 100mg ORAL SCH (20:13)
[2019-01-06] MEDS: Miralax 17gm pkt ORAL SCH ×2 (20:13→20:20)
--- NOTE | 2019-01-06 21:52 | NUR ---
NURSE NOTE: Pt is A/Ox4 with stable VS. Orders reviewed and physical assessment completed. Call ornelas is within reach. Pt requesting Benadryl. Dr. Johnson paged at [phone], will follow up. Will continue to monitor.
--- NOTE | 2019-01-06 22:27 | NUR ---
NURSE NOTE: Dr. Aldana paged at [phone] regarding route change for Benadryl.
[2019-01-07] VITALS: BP 102/63
[2019-01-07] MEDS: HYDROmorphone 1mg/ml Carpuject SUBQ PRN ×3 (01:05→10:44)
[2019-01-07 04:17] VITALS: BP 88/64
[2019-01-07 05:27] VITALS: BP 115/69
--- NOTE | 2019-01-07 07:37 | NUR ---
HAND-OFF: Report given to Mary.
[2019-01-07 08:00] VITALS: BP 97/62
--- NOTE | 2019-01-07 08:32 | General Progress Note ---
Assessment/Plan Assessment/Plan: (1) Recurrent axillary hidradenitis with active abscess and drainage (2) S/p Radical excision of right axillary tissue (3) Right Axilla pain Patient will be continued on Dilaudid IV and Percocet D/w Dr. Long and he concurred. Subjective Date patient seen: Jan 07, 2019 Time patient seen: 08:30 - am Allergies: Coded Allergies: SILVER (Verified Allergy, Mild, 06/13/18) AZATHIOPRINE (Verified Allergy, Unknown, 05/15/18) DOCUSATE (Verified Allergy, Unknown, 05/15/18) ok for oral LATEX (Verified Allergy, Unknown, 05/15/18) VANCOMYCIN (Verified Allergy, Unknown, 05/15/18) BISACODYL (Verified Adverse Reaction, Severe, Rash, 05/15/18) Uncoded Allergies: IODINE CONTRAST (Allergy, Unknown, 05/15/18) TAPE (Allergy, Unknown, 05/15/18) Subjective Constitutional: Reports: no symptoms HEENT: Reports: no symptoms Cardiovascular: Reports: no symptoms Respiratory: Reports: cough Gastrointestinal/Abdominal: Reports: no symptoms Genitourinary: Reports: no symptoms Neurologic/Psychiatric: Reports: no symptoms Endocrine: Reports: no symptoms Hematologic/Lymphatic: Reports: no symptoms Subjective Patient is in bed no signs of pain or distress. 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 No new complaints at this time. Objective Last 24 Hour Vital Signs Date Time Temp Pulse Resp B/P (MAP) Pulse Ox O2 Delivery O2 Flow Rate FiO2 01/07/19 05:27 115/69 (84) 01/07/19 04:17 97.6 62 16 88/64 (72) 98 01/07/19 00:00 98.2 72 18 102/63 (76) 94 01/06/19 21:00 Room Air 01/06/19 20:00 98.3 70 17 108/62 (77) 95 01/06/19 16:00 98.3 70 16 112/69 (83) 98 01/06/19 12:00 97.6 74 16 123/73 (90) 97 01/06/19 09:00 Room Air Intake and Output 01/06/19 01/07/19 19:00 07:00 Intake Total 1372.5 ml 780 ml Balance 1372.5 ml 780 ml Intake Oral 990 ml 780 ml IV Total 382.5 ml # Voids 5 3 Height (Feet): 5 Height (Inches): 5.00 Weight (Pounds): 201 Objective General Appearance: no apparent distress, alert EENT: PERRL/EOMI, normal ENT inspection Neck: non-tender, normal alignment Respiratory/Chest: lungs clear, normal breath sounds Abdomen: normal bowel sounds, non tender Extremities: other - right axilla bandages noted Edema: no edema noted Generalized Neurologic: alert, oriented x 3 Skin: normal pigmentation Hao Aldana Jan 07, 2019 08:32
[2019-01-07] MEDS: Augmentin 875mg Tab ORAL SCH (08:58)
[2019-01-07] MEDS: Lactulose 10gm/15ml UDC ORAL SCH ×2 (09:00→13:00)
[2019-01-07] MEDS: Relistor 12mg/0.6ml Vial SUBQ SCH (09:00)
[2019-01-07] MEDS: Neosporin Oint 15gm TOPIC SCH (09:00)
[2019-01-07] MEDS: Heparin 5000 units/ml inj SUBQ SCH (09:04)
[2019-01-07] MEDS: Doxycycline Monohydrate 100mg ORAL SCH (09:06)
--- NOTE | 2019-01-07 09:17 | Discharge Summary ---
Discharge Summary Hospital Course Date of Admission Dec 26, 2018 at 19:45 Date of Discharge 01/07/2019 Admitting Diagnosis wound cellulitis HPI Kenzie Caruso is a 23 year old female who was admitted on Dec 26, 2018 at 19:45 for R axillary Hidradenitis suppurativa- wound dehiscence and cellulitis with purulent discharge Consultations Plastic surgery; Dr. Sagar Brambila ID: Dr. Janak Diallo Procedures right axillary debridement and flap elevation for recurrence of her hidradenitis suppurativa and flap closure. Hospital Course 23 year old female with hx of Hidradenitis suppurativa presents with right axillary wound dehiscence, purulent discharge and wound cellulitis, failed outpatient treatment. she is now pod# 11 s/p right axillary debridement and flap elevation for recurrence of her hidradenitis suppurative. PD #7, s/p flap closure. Developed sepsis secondary to Left lung base pneumonia on 01/04 ( tachycardia, leukocytosis. cxr: Left lung base infiltrate) #sepsis secondary to left lung base pneumonia ?cap ? aspiration- resolving follow up blood cultures, sputum culture- negative to date encouraged incentive spirometry ID follow up- case d/w Dr. Diallo CBC, bmp- wbc trending down, afebrile now s/p Zosyn, Azithromycin and daptomycin, switched to oral antibiotics Augmentin 875 Q12hr for 7 days and Doxycycline 100 mg q 12hrs for 7 days #R axillary Hidradenitis suppurativa- wound dehiscence and cellulitis with purulent discharge #R groin hidradenitis suppurativa- patient doesn't want surgery during this hospitalization Dr. Brambila's services and recs appreciated IV antibiotics per ID consult: s/p Daptomycin and zosyn (gm negative and MRSA coverage) , switched to oral doxycycline and acumentin per above pain control- seen by pain management consult. follow up recs. 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 Last Remicade a month ago, gets it every 8 weeks #constipation #N/V- resolved -continue to monitor closely, given history of IBD. -GI consult for constipation appreciated -Started on lactulose. she's having BMs #Hypomagnesemia, hypokalemia, hypocalcemia -Replace as needed -ionized calcium is low, will replace all electrolytes. encouraged PO intake #Depression/Anxiety- stable. Continue home fluoxetine, and Aripiprazole. #vte ppx: Heparin #GI ppx: omeprazole Code status: full code disposition: Home with home health services through [facility] today On exam today: VSS, afebrile, she is awake, alert and oriented, R axillary wound looks intact, clean and dry. Lung: CTA bl, ext: No edema. I spent 35 minutes on this encounter. > 50% spent on counselling and care coordination. Case d/w Drs. Brambila and Imani. d/w patient time of this note may not reflect time of encounter Discharge Medications New Medications: Amoxicillin/Potassium Clav 875-125 Mg Tab* (Amox Tr-K Clv 875-125 Mg Tab*) 1 Each Tablet 1 TAB ORAL EVERY 12 HOURS for 7 Days, #14 TAB Doxycycline Monohydrate (Doxycycline Monohydrate) 100 Mg Tablet 100 MG PO EVERY 12 HOURS for 7 Days, #14 TAB Oxycodone HCl/Acetaminophen (Percocet 10-325 mg Tablet) 1 Each Tablet 1 TAB ORAL Q4H PRN, #10 TAB 0 Refills Continued Medications: Aripiprazole* (Abilify*) 2 Mg Tablet 2 MG ORAL DAILY, TAB Docusate Sodium* (Colace*) 100 Mg Capsule 200 MG ORAL TWICE A DAY for 30 Days, #60 CAP 0 Refills Fluoxetine Hcl* (Prozac*) 20 Mg Capsule 40 MG ORAL DAILY, CAP Infliximab (Remicade) 100 Mg Vial 632.761 MG IV EVERY 8 WEEKS, VIAL Omeprazole Magnesium (Prilosec Otc) 20 Mg Tablet.dr 20 MG ORAL DAILY, TAB Discontinued Medications: Aripiprazole* (Abilify*) 2 Mg Tablet 2.5 MG ORAL DAILY, TAB Cephalexin (Cephalexin) 500 Mg Tablet 500 MG ORAL QID for 7 Days, #28 TAB 0 Refills Doxycycline Hyclate (Doxycycline Hyclate) 100 Mg Capsule 100 MG ORAL EVERY 12 HOURS for 7 Days, #14 CAP 0 Refills Discharge Condition Upon Discharge: improving Discharge Disposition Patient was discharged to home with services Discharge Diagnoses: (1) Wound dehiscence, surgical (2) Surgical site infection (3) Hidradenitis suppurativa of right axilla (4) Sepsis (5) Pneumonia (6) Anemia (7) Constipation (8) Crohns disease (9) Depression (10) Anxiety Isidro Johnson M.D. Jan 07, 2019 09:17
[2019-01-07] MEDS ORDERED: AMOX TR-K CLV1 EAC2 ORAL (09:30)
[2019-01-07] MEDS ORDERED: DOXYCYCLINE MO100 M2 PO (09:30)
[2019-01-07] MEDS ORDERED: PERCOCET 10-321 EAC1 ORAL (09:30)
--- NOTE | 2019-01-07 09:30 | NUR ---
*-* INSURANCE *--* ALL CLINICALS HAVE BEEN FAXED TO: [facility] FAX CLINICALS TO [phone]
--- NOTE | 2019-01-07 09:44 | NUR ---
RADIOLOGY: PCXR COMPLETED 0945HRS. NF
--- NOTE | 2019-01-07 09:45 | NUR ---
CASE MANAGEMENT:REVIEW 01/05/19 SI: POD #9 AND POD #5 S/P RT AXILLARY DEBRIDEMENT, FLAP ELEVATION AND CLOSURE 98.2 99 18 98/65 93% ON 2L/NC H/H-10.1/30.9 K-3.2 GLUCOSE+139 C-7.9 IS: IV AZITHROMYCIN Q24 IV ZOSYN Q8HRS IV DAPTOMYCIN Q24 IVF@150/HR CONTENT ASSISTANT DILAUDID LACTULOSE PO TID PROZAC PO QD ABILIFY PO QD : [facility] DCP: HOME ~ [facility] 01/06/19 SI: POD #10 AND POD #6 S/P RT AXILLARY DEBRIDEMENT, FLAP ELEVATION AND CLOSURE 98.4 68 16 107/67 96% ON RA H/H-9.7/30.1 CA-7.7 IS: AUGMENTIN PO Q12 DOXYCYCLINE PO Q12 LACTULOSE PO TID PROZAC PO QD ABILIFY PO QD DILAUDID SQ Q3HRS PRN ATARAX PO Q6HRS PRN PERCOCET PO Q4HRS PRN : TO MED[facility]SURG 3 [facility] DCP: HOME ~ [place] 01/07/19 PLAN IS TO DISCHARGE HOME TODAY WITH [facility] FOR WOUND CARE WAITING FOR WOUND CARE INSTRUCTIONS
--- NOTE | 2019-01-07 10:01 | Discharge Instructions ---
Discharge Instructions For Surgical Patients Dressing Care: keep dry and clean - Dry dressing, if wound opens, wet to dr dressing For Congestive Heart Failure Reminder Report to your physician any weight gain of 5 pounds or more in one week. Isidro Johnson M.D. Jan 07, 2019 10:01
--- NOTE | 2019-01-07 10:35 | Diagnostic Imaging Report ---
Indication: Shortness of breath Technique: One view of the chest Comparison: 01/04/2019 Findings: Lungs and pleural spaces are clear. Heart size is normal. No significant change Impression: No acute process
--- NOTE | 2019-01-07 11:42 | NUR ---
DISCHARGE PLANNING PATIENT HAS BEEN REFERRED TO [facility] T: [phone] F: [phone] Addendum: 01/07/19 at 1159 by ISMAEL BELTRE LVN LVN CALLED [facility] AND SPOKE WITH [facility] ORDER TO HOME HEALTH ENCOURAGED BRANDY TO CONTACT THE NURSES STATION REGARDING WOUND CARE SUPPLY SPECIFICS
[2019-01-07 12:00] VITALS: BP 98/53
--- NOTE | 2019-01-07 13:16 | GI Progress Note ---
Assessment/Plan Problems: (1) Therapeutic opioid-induced constipation (OIC) ICD Codes: K59.03 - Drug induced constipation; T40.2X5A - Adverse effect of other opioids, initial encounter SNOMED: 551946051425902 (2) Constipation ICD Codes: K59.00 - Constipation, unspecified SNOMED: 33057400 (3) Anemia ICD Codes: D64.9 - Anemia, unspecified SNOMED: 879533920 (4) Crohns disease ICD Codes: K50.90 - Crohn's disease, unspecified, without complications SNOMED: 69839020 (5) Anxiety ICD Codes: F41.9 - Anxiety disorder, unspecified SNOMED: 64152799 (6) Opioid use ICD Codes: F11.90 - Opioid use, unspecified, uncomplicated SNOMED: 095184097 Status: stable Status Narrative Discussed with Dr. Terrazas. Assessment/Plan Patient with history of Crohn's disease, on scheduled Remicade next dose in 1 month. Patient has allergy to Colace, refuses MiraLAX. lactulose twice daily. start Relistor SQ QOD tomorrow if patient has no BM Advance diet as tolerated Follow-up surgical recommendations Pain management PPI We will follow along with additional recommendations Consider Movantik versus Relistor as outpatient medications for opiate-induced constipation The patient was seen and examined at bedside and all new and available data was reviewed in the patients chart. I agree with the above findings, impression and plan. (Patient seen earlier today. Signature stamp does not reflect patient encounter time.). - Moshe Terrazas MD Subjective Subjective patient denies constipation, has had multiple BM Objective Last 24 Hour Vital Signs Date Time Temp Pulse Resp B/P (MAP) Pulse Ox O2 Delivery O2 Flow Rate FiO2 01/07/19 12:00 98.2 16 98/53 (68) 96 01/07/19 09:00 Room Air 01/07/19 08:00 98.5 59 19 97/62 (74) 01/07/19 05:27 115/69 (84) 01/07/19 04:17 97.6 62 16 88/64 (72) 98 01/07/19 00:00 98.2 72 18 102/63 (76) 94 01/06/19 21:00 Room Air 01/06/19 20:00 98.3 70 17 108/62 (77) 95 01/06/19 16:00 98.3 70 16 112/69 (83) 98 Intake and Output 01/06/19 01/07/19 19:00 07:00 Intake Total 1372.5 ml 780 ml Balance 1372.5 ml 780 ml Intake Oral 990 ml 780 ml IV Total 382.5 ml # Voids 5 3 Height (Feet): 5 Height (Inches): 5.00 Weight (Pounds): 201 General Appearance: WD/WN, no apparent distress, alert Cardiovascular: normal rate Respiratory/Chest: normal breath sounds, no respiratory distress Abdominal Exam: normal bowel sounds, non tender, soft Extremities: normal range of motion, non-tender Joy Malone NP Jan 07, 2019 13:16
[2019-01-07 16:00] VITALS: BP 103/58
--- NOTE | 2019-01-07 16:40 | NUR ---
NURSE NOTES: Pt discharged mediations provided, gave pt instructions in regards to pain when to take pain medication and to monitor the s/s of respiratory depression, Instructions provided for use of nasal spray Narcan for emergency purposes. Has belongings. Will be having home health provided by [facility] for wound care. Phone number to [place] provided. Pt did not want process description writer to notify mother of discharge. " I have my moms number I will call myself. Pt made arrangements for Michael
--- NOTE | 2019-01-07 16:46 | NUR ---
NURSE NOTES: ID Band removed pt does not have IV site. Per pt I am ready to go: Pt teaching provided for wound care and symptoms to call for help for.
--- NOTE | 2019-01-07 16:50 | NUR ---
NURSE NOTES: Gave instruction for use of Narcan
--- NOTE | 2019-01-08 14:36 | NUR ---
*-* INSURANCE *--* DISCHARGE SUMMARY FAXED [facility] FAX CLINICALS TO [phone]
--- NOTE | 2019-01-13 09:42 | Coder Physician Query ---
Clarification is required for compliance, coding accuracy, and to reflect severity of illness for this patient Dear Dr.Ronak Johnson Date: 01/13/19 Cafeteria Helper/CDS Name:[facility] Hospital Course 23 year old female with hx of Hidradenitis suppurativa presents with right axillary wound dehiscence, purulent discharge and wound cellulitis, failed outpatient treatment. she is now pod# 11 s/p right axillary debridement and flap elevation for recurrence of her hidradenitis suppurative. PD #7, s/p flap closure. Developed sepsis secondary to Left lung base pneumonia on 01/04 ( tachycardia, leukocytosis. cxr: Left lung base infiltrate) #sepsis secondary to left lung base pneumonia ?cap ? aspiration- resolving Clarification is needed for one (or more) of the following conditions in order to accurately assign the "present on admission' indicator. Please choose the answer that best indicates whether the associated condition was present at the time of the order for inpatient admission. Thank you. DIAGNOSIS: PNEUMONIA AND SEPSIS Was the SEPSIS AND PNEUMONIA Present on admission? [] YES [x] NO [] Clinically Undeterminable nidhi johnson 01/14/2019 NIDHI JOHNSON M.D. Date Please also document in your Progress Notes and/or Discharge Summary and indicate if the condition was present on admission. MTDD
== END 2019-01-07 16:20 | disposition home health service (06) | DRG 901 ==
LOC: EMR 19:40 → 3E 19:45 → EDBEDREQ 20:00 → 3E 01-06 08:00
PROC: 0H85XZZ Division of Chest Skin, External Approach (ICD-10-PCS; principal; 2018-12-27 13:00)
PROC: 0JBD0ZZ Excision of Right Upper Arm Subcutaneous Tissue and Fascia, Open Approach (ICD-10-PCS; principal; 2018-12-27 13:00)
PROC: 0JXD0ZZ Transfer Right Upper Arm Subcutaneous Tissue and Fascia, Open Approach (ICD-10-PCS; 2018-12-31)
DX: T81.30XA Disruption of wound, unspecified, initial encounter (principal); A41.9 Sepsis, unspecified organism; J18.9 Pneumonia, unspecified organism; L02.411 Cutaneous abscess of right axilla; K50.90 Crohn's disease, unspecified, without complications; L03.111 Cellulitis of right axilla; L73.2 Hidradenitis suppurativa; Y83.8 Other surgical procedures as the cause of abnormal reaction of the patient, or of later complication, without mention of misadventure at the time of the procedure; F32.9 Major depressive disorder, single episode, unspecified; F41.9 Anxiety disorder, unspecified; Z88.1 Allergy status to other antibiotic agents; Z88.8 Allergy status to other drugs, medicaments and biological substances; E83.42 Hypomagnesemia; E87.6 Hypokalemia; E83.51 Hypocalcemia
CPT/HCPCS: 36415; 71045; 80048; 80053; 81025; 82164; 82330; 82550; 83605; 83735; 84100; 85025; 85610; 85730; 86710; 86738; 86850; 86900; 86901; 87040; 87070; 87205; 93005; 94003; 94150; 94640; 96365; 96375; 99285; J2250; J2405; J2765; J3490; J7030; J8499

== ENCOUNTER 2019-01-21 14:51 | Inpatient (IN) | payer OTHER ==
[~2019-01-21] VITALS: Ht 162.6 cm; Wt 84.8 kg
[~2019-01-21 14:51] MED LIST changes: +DOXYCYCLINE MO100 M2 PO; +PERCOCET 10-321 EAC1 ORAL
[2019-01-21 15:05] VITALS: BP 104/71
--- NOTE | 2019-01-21 15:05 | NUR ---
ED Nurse Note: Patient arrived to ED from home sent by Dr. Brambila for dehisced wound. Patient currently states pain is 8/10. AxO x 4, no signs of acute distress.
[2019-01-21] MEDS ORDERED: Cefepime HCl 2 GM in D5W 55 ML IVPB ONE (15:30)
[2019-01-21] MEDS ORDERED: HYDROmorphone 1mg/ml Carpuject IVP ONE (15:30)
--- NOTE | 2019-01-21 15:45 | Emergency Room Report ---
History of Present Illness General Chief Complaint: General Complaint Source: Patient Present Illness HPI Patient has had recent surgery involving her right sided separative hidradenitis with secondary cellulitis and abscess Patient reports that she was doing well however recently she noticed that some of the sutures Were not there there was an opening in the surgical site Increased discharge Yellowish and foul smell Increased redness around the site as well Patient reports that a home health nurse did present to her house and requested for her to present to the emergency room given the appearance Patient denies any chest pain or vomiting however she has had significant increased discomfort and pain in the surgical site Allergies: Coded Allergies: SILVER (Verified Allergy, Mild, 06/13/18) AZATHIOPRINE (Verified Allergy, Unknown, 05/15/18) DOCUSATE (Verified Allergy, Unknown, 05/15/18) ok for oral LATEX (Verified Allergy, Unknown, 05/15/18) VANCOMYCIN (Verified Allergy, Unknown, 05/15/18) BISACODYL (Verified Adverse Reaction, Severe, Rash, 05/15/18) Uncoded Allergies: IODINE CONTRAST (Allergy, Unknown, 05/15/18) TAPE (Allergy, Unknown, 05/15/18) Patient History Past Medical History: see triage record Now: No Reviewed Nursing Documentation: PMH: Agreed; PSxH: Agreed Nursing Documentation-PMH Past Medical History: No History, Except For Hx Cardiac Problems: No Hx Cancer: No Hx Gastrointestinal Problems: Yes - C-diff: 3 years ago Hx Neurological Problems: No Review of Systems All Other Systems: negative except mentioned in HPI Physical Exam Vital Signs Date Time Temp Pulse Resp B/P (MAP) Pulse Ox O2 Delivery O2 Flow Rate FiO2 01/21/19 14:59 98.4 77 17 104/71 (82) 99 Room Air Sp02 EP Interpretation: reviewed, normal General Appearance: mild distress - uncomfortable Head: normocephalic, atraumatic Eyes: bilateral eye PERRL, bilateral eye EOMI ENT: dry mucus membranes Neck: supple Respiratory: lungs clear, no respiratory distress, no retraction Cardiovascular #1: regular rate, rhythm Gastrointestinal: non tender, soft Genitourinary: no CVA tenderness Musculoskeletal: normal inspection Neurologic: alert, oriented x3 Psychiatric: normal inspection Skin: other - Area of dehiscence at approximately 3:00, and 7:00 region on several sites on the right axilla, increased erythema and foul smell discharge noted Lymphatic: no adenopathy Medical Decision Making Diagnostic Impression: Primary Impression: Sepsis Additional Impressions: Wound cellulitis Wound dehiscence ER Course Given the patient's history and presentation given the examination there is concern regarding secondary infectious process patient has extensive blood work initiated Review of previous medical records and previous inpatient physicians show Appropriate response to cefepime This initial antibiotic is initiated in the emergency room contact is made with the patient's renewal specialist given the description and the presentation agrees with further inpatient care and patient admitted For close follow-up Labs Test 01/21/19 15:40 White Blood Count 10.7 K/UL (4.8-10.8) Red Blood Count 4.64 M/UL (4.20-5.40) Hemoglobin 12.3 G/DL (12.0-16.0) Hematocrit 38.5 % (37.0-47.0) Mean Corpuscular Volume 83 FL (80-99) Mean Corpuscular Hemoglobin 26.6 PG (27.0-31.0) Mean Corpuscular Hemoglobin Concent 32.1 G/DL (32.0-36.0) Red Cell Distribution Width 13.4 % (11.6-14.8) Platelet Count 365 K/UL (150-450) Mean Platelet Volume 5.7 FL (6.5-10.1) Neutrophils (%) (Auto) 61.9 % (45.0-75.0) Lymphocytes (%) (Auto) 29.8 % (20.0-45.0) Monocytes (%) (Auto) 6.3 % (1.0-10.0) Eosinophils (%) (Auto) 0.9 % (0.0-3.0) Basophils (%) (Auto) 1.0 % (0.0-2.0) Urine HCG, Qualitative Negative (NEGATIVE) Sodium Level 138 MMOL/L (136-145) Potassium Level 4.5 MMOL/L (3.5-5.1) Chloride Level 105 MMOL/L (98-107) Carbon Dioxide Level 24 MMOL/L (21-32) Anion Gap 9 mmol/L (5-15) Blood Urea Nitrogen 10 mg/dL (7-18) Creatinine 0.8 MG/DL (0.55-1.30) Estimat Glomerular Filtration Rate > 60 mL/min (>60) Glucose Level 120 MG/DL (74-106) Lactic Acid Level 1.10 mmol/L (0.4-2.0) Calcium Level 8.3 MG/DL (8.5-10.1) Phosphorus Level 4.1 MG/DL (2.5-4.9) Magnesium Level 1.9 MG/DL (1.8-2.4) Total Bilirubin 0.3 MG/DL (0.2-1.0) Aspartate Amino Transf (AST/SGOT) 23 U/L (15-37) Alanine Aminotransferase (ALT/SGPT) 30 U/L (12-78) Alkaline Phosphatase 66 U/L (46-116) Total Creatine Kinase 48 U/L (26-308) Creatine Kinase MB < 0.5 NG/ML (0.0-3.6) Creatine Kinase MB Relative Index 1.0 Total Protein 7.8 G/DL (6.4-8.2) Albumin 3.2 G/DL (3.4-5.0) Globulin 4.6 g/dL Albumin/Globulin Ratio 0.7 (1.0-2.7) Last Vital Signs Date Time Temp Pulse Resp B/P (MAP) Pulse Ox O2 Delivery O2 Flow Rate FiO2 01/21/19 14:59 98.4 77 17 104/71 (82) 99 Room Air Status: improved Disposition: ADMITTED INPATIENT Condition: Serious Referrals: NON PHYSICIAN (PCP) Juan Bright DO Jan 21, 2019 15:45
--- NOTE | 2019-01-21 15:52 | NUR ---
ED Nurse Note: COLLECETD BLOOD/URINE THEN SENT.
[2019-01-21 16:15] LABS: EOSINOPHILS % (AUTO) 0.9 % (0.0-3.0); HEMATOCRIT 38.5 % (37.0-47.0); HEMOGLOBIN 12.3 G/DL (12.0-16.0); LYMPHOCYTES % (AUTO) 29.8 % (20.0-45.0); MEAN CORPUSCULAR VOLUME 83 FL (80-99); MONOCYTES % (AUTO) 6.3 % (1.0-10.0); NEUTROPHILS % (AUTO) 61.9 % (45.0-75.0); PLATELET COUNT 365 K/UL (150-450); RED BLOOD COUNT 4.64 M/UL (4.20-5.40); RED CELL DISTRIBUTION WIDTH 13.4 % (11.6-14.8); WHITE BLOOD COUNT 10.7 K/UL (4.8-10.8)
[2019-01-21 16:19] LABS: ANION GAP 9 mmol/L (5-15); BLOOD UREA NITROGEN 10 mg/dL (7-18); CALCIUM 8.3 MG/DL (8.5-10.1); CARBON DIOXIDE 24 MMOL/L (21-32); CHLORIDE 105 MMOL/L (98-107); CREATININE 0.8 MG/DL (0.55-1.30); POTASSIUM 4.5 MMOL/L (3.5-5.1); SODIUM 138 MMOL/L (136-145)
[2019-01-21 16:33] LABS: ALANINE AMINOTRANSFERASE 30 U/L (12-78); ALBUMIN 3.2 G/DL (3.4-5.0); ALBUMIN/GLOBULIN RATIO 0.7 (1.0-2.7); ALKALINE PHOSPHATASE 66 U/L (46-116); ASPARTATE AMINO TRANSFERASE 23 U/L (15-37); BILIRUBIN,TOTAL 0.3 MG/DL (0.2-1.0); CKMB < 0.5 NG/ML (0.0-3.6); CREATINE KINASE 48 U/L (26-308); PHOSPHORUS 4.1 MG/DL (2.5-4.9)
--- NOTE | 2019-01-21 16:35 | NUR ---
ED Nurse Note: WOUND CULTURE SENT TO LAB.
[2019-01-21] MEDS ORDERED: DiphenhydrAMINE 50mg/ml Inj IVP ONE (16:45)
--- NOTE | 2019-01-21 16:45 | NUR ---
ED Nurse Note: DR OLIVER AT THE BED SIDE.
--- NOTE | 2019-01-21 16:47 | NUR ---
ED Nurse Note: APPLIED XEROFORM DRESSING TO WOUND ON RIGHT UPPER LATERAL TRUNK THEN COVERED WITH NON STICK DRESSING/DRY GAUZE AND SECURED WITH TAPE PER ERMD ORDER.
[2019-01-21 17:02] VITALS: BP 117/65
--- NOTE | 2019-01-21 17:39 | NUR ---
ED Nurse Note: REPORT GIVEN TO CARON FITZGERALD OF MED SURG UNIT.
--- NOTE | 2019-01-21 17:50 | NUR ---
NURSE NOTES: Patient arrived on unit. Stable. Denies pain or SOB. Patient oriented to room, call light and unit. Patient instructed to use call light for assistance, verbalized understanding. Patient's skin is c/d/i. Right axilla surgical wound is not intact. Admission orders read back and carried out. Patient aware of plan of care. Patient in bed in locked and lowest position with call light within reach. WIll continue to monitor.
[2019-01-21] MEDS ORDERED: Cefepime HCl 1 GM in D5W 55 ML IVPB SCH (18:00)
[2019-01-21] MEDS: HYDROmorphone 1mg/ml Carpuject IVP PRN ×2 (18:33→21:41)
--- NOTE | 2019-01-21 19:00 | NUR ---
NURSE NOTES: Received a report from LIA Gil. Pt is in stable condition. AAOX4. Able to make needs known. On room air. C/o R axilla pain, rated it 6/10. Will give pain med later. IV site is patent and intact. Bed in lowest position. Bed alarm is on. Call light within reach. Will continue to monitor.
--- NOTE | 2019-01-21 19:09 | NUR ---
HAND-OFF: Report given to Nuvia FITZGERALD .Patient is stable.
[2019-01-21 20:00] VITALS: BP 108/74
[2019-01-21] MEDS ORDERED: DAPTOmycin 500 MG in NS 55 ML IV SCH (20:00)
[2019-01-21] MEDS: Heparin 5000 units/ml inj SUBQ SCH (20:15)
--- NOTE | 2019-01-21 20:22 | History and Physical ---
History of Present Illness General Date patient seen: Jan 21, 2019 Reason for Hospitalization: wound discharge Present Illness HPI Patient is a very pleasant 23 year old female who presented to the ED c/o 11/29 right axilla and arm pain, erythema, fluid collection and open wound for 3 days. Patient underwent surgery for R axillary hidradenitis suppurativa in December 2018, initially did well but sutures dehisced and she noticed yellow foul smelling discharge and erythema. Purulent drainage. She sent the images to her plastic surgeon and was advised to go to the ER.. Patient denies any fevers at home but has chills. Denies any trauma to the area. No relieving factors, pain aggravating by arm movement. Patient has a hx of hidradenitis suppurativa in the groin area as well but none is active at the moment. She has Crohn's s/p collectomy in 2014, last flare 2 years ago, in remission on Remicade which she was supposed to take tomorrow, she has cancelled her appt with her GI.. She also has depression and anxiety. In the ER her BP low normal 104/71, no tachycardia, afebrile at 98.4. given antibiotics and IVF, admitted to [facility]. Past Medical History: Crohn's s/p colectomy in 2014 on Remicade, Depression, Anxiety Past Surgical History: hydradenitis, colectomy in 2014 Social history: Denies smoking cigarettes, marijuana or other illicit drugs. 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 Family history: Depression and anxiety, cousin with Crohn's Allergies: Coded Allergies: SILVER (Verified Allergy, Mild, 06/13/18) AZATHIOPRINE (Verified Allergy, Unknown, 05/15/18) DOCUSATE (Verified Allergy, Unknown, 05/15/18) ok for oral LATEX (Verified Allergy, Unknown, 05/15/18) VANCOMYCIN (Verified Allergy, Unknown, 05/15/18) BISACODYL (Verified Adverse Reaction, Severe, Rash, 05/15/18) Uncoded Allergies: IODINE CONTRAST (Allergy, Unknown, 05/15/18) TAPE (Allergy, Unknown, 05/15/18) Medication History Scheduled Amoxicillin/Potassium Clav 875-125 Mg Tab* (Amox Tr-K Clv 875-125 Mg Tab*), 1 TAB ORAL EVERY 12 HOURS Aripiprazole* (Abilify*), 2 MG ORAL DAILY, (Reported) Docusate Sodium* (Colace*), 200 MG ORAL TWICE A DAY Doxycycline Monohydrate (Doxycycline Monohydrate), 100 MG PO EVERY 12 HOURS Fluoxetine Hcl* (Prozac*), 40 MG ORAL DAILY, (Reported) Infliximab (Remicade), 632.761 MG IV EVERY 8 WEEKS, (Reported) Omeprazole Magnesium (Prilosec Otc), 20 MG ORAL DAILY, (Reported) Scheduled PRN Oxycodone HCl/Acetaminophen (Percocet 10-325 mg Tablet), 1 TAB ORAL Q4H PRN Patient History Healthcare decision maker Kenzie Caruso Resuscitation status Full Code Advanced Directive on File No Review of Systems Constitutional: Reports: chills Eye: Denies: no symptoms, see HPI, eye pain, blurred vision, tearing, double vision, nose pain, nose congestion, acuity changes, discharge, other ENT: Denies: no symptoms, see HPI, ear pain, ear discharge, nose pain, nose congestion, throat pain, throat swelling, mouth pain, hearing loss, nasal discharge, other Respiratory: Denies: no symptoms, see HPI, cough, orthopnea, shortness of breath, stridor, wheezing, LISA, sputum, other Cardiovascular: Denies: no symptoms, see HPI, chest pain, edema, palpitations, syncope, PND, other Gastrointestinal: Denies: no symptoms, see HPI, abdominal pain, constipation, diarrhea, nausea, vomiting, melena, hematemesis, other Genitourinary: Denies: no symptoms, see HPI, discharge, dysuria, frequency, hematuria, pain, retention, incontinence, urgency, vag bleed/dc, other Musculoskeletal: Denies: no symptoms, see HPI, back pain, gout, joint pain, joint swelling, muscle pain, muscle stiffness, other Skin: Reports: see HPI Psychiatric: Denies: no symptoms, see HPI, prior hx, anxiety, depressed feelings, emotional problems, SI, HI, hallucinations, other Neurological: Denies: no symptoms, see HPI, headache, numbness, paresthesia, seizure, tingling, tremors, focal weakness, syncope, dizziness, other Endocrine: Denies: no symptoms, see HPI, excessive sweating, flushing, intolerance to temperature, increased thirst, increased urine, unexplained weight loss, other Hematologic/Lymphatic: Denies: no symptoms, see HPI, anemia, blood clots, easy bleeding, easy bruising, swollen glands, diathesis, other Physical Exam Physical Exam Narrative General Appearance: mild distress due to pain - uncomfortable Head: normocephalic, atraumatic Eyes: bilateral eye PERRL, bilateral eye EOMI ENT: dry mucus membranes Neck: supple Respiratory: lungs cta bl, no rales or rhonchi Cardiovascular : regular rate, rhythm Gastrointestinal: non tender, soft, obese, +bs Musculoskeletal: normal inspection Neurologic: alert, oriented x4, grossly normal Psychiatric: normal affect Skin: Area of dehiscence on several sites on the right axilla, increased erythema and foul smelling yellow/green discharge Lymphatic: no adenopathy Last 24 Hour Vital Signs Date Time Temp Pulse Resp B/P (MAP) Pulse Ox O2 Delivery O2 Flow Rate FiO2 01/21/19 20:00 98.7 74 18 108/74 (85) 97 74 01/21/19 17:40 Room Air 01/21/19 17:39 98.0 79 16 115/76 100 Room Air 01/21/19 17:02 98.3 84 16 117/65 96 Room Air 01/21/19 15:05 77 17 Room Air 01/21/19 15:05 98.4 87 17 104/71 99 Room Air 01/21/19 14:59 98.4 77 17 104/71 (82) 99 Room Air Laboratory Tests Test 01/21/19 15:40 White Blood Count 10.7 K/UL (4.8-10.8) Red Blood Count 4.64 M/UL (4.20-5.40) Hemoglobin 12.3 G/DL (12.0-16.0) Hematocrit 38.5 % (37.0-47.0) Mean Corpuscular Volume 83 FL (80-99) Mean Corpuscular Hemoglobin 26.6 PG (27.0-31.0) L Mean Corpuscular Hemoglobin Concent 32.1 G/DL (32.0-36.0) Red Cell Distribution Width 13.4 % (11.6-14.8) Platelet Count 365 K/UL (150-450) Mean Platelet Volume 5.7 FL (6.5-10.1) L Neutrophils (%) (Auto) 61.9 % (45.0-75.0) Lymphocytes (%) (Auto) 29.8 % (20.0-45.0) Monocytes (%) (Auto) 6.3 % (1.0-10.0) Eosinophils (%) (Auto) 0.9 % (0.0-3.0) Basophils (%) (Auto) 1.0 % (0.0-2.0) Urine HCG, Qualitative Negative (NEGATIVE) Sodium Level 138 MMOL/L (136-145) Potassium Level 4.5 MMOL/L (3.5-5.1) Chloride Level 105 MMOL/L (98-107) Carbon Dioxide Level 24 MMOL/L (21-32) Anion Gap 9 mmol/L (5-15) Blood Urea Nitrogen 10 mg/dL (7-18) Creatinine 0.8 MG/DL (0.55-1.30) Estimat Glomerular Filtration Rate > 60 mL/min (>60) Glucose Level 120 MG/DL (74-106) H Lactic Acid Level 1.10 mmol/L (0.4-2.0) Calcium Level 8.3 MG/DL (8.5-10.1) L Phosphorus Level 4.1 MG/DL (2.5-4.9) Magnesium Level 1.9 MG/DL (1.8-2.4) Total Bilirubin 0.3 MG/DL (0.2-1.0) Aspartate Amino Transf (AST/SGOT) 23 U/L (15-37) Alanine Aminotransferase (ALT/SGPT) 30 U/L (12-78) Alkaline Phosphatase 66 U/L (46-116) Total Creatine Kinase 48 U/L (26-308) Creatine Kinase MB < 0.5 NG/ML (0.0-3.6) Creatine Kinase MB Relative Index 1.0 Total Protein 7.8 G/DL (6.4-8.2) Albumin 3.2 G/DL (3.4-5.0) L Globulin 4.6 g/dL Albumin/Globulin Ratio 0.7 (1.0-2.7) L Microbiology Date/Time Source Procedure Growth Status 01/21/19 17:00 Rectum Received Height (Feet): 5 Height (Inches): 5.00 Weight (Pounds): 188 Medications Current Medications Medications (Trade) Dose Ordered Sig/Alix Route PRN Reason Start Time Stop Time Status Last Admin Dose Admin Aripiprazole (Abilify) 2 mg DAILY ORAL 01/22/19 09:00 02/21/19 08:59 Cefepime HCl 2 gm/ Dextrose 55 ml @ 110 mls/hr EVERY 12 HOURS IVPB 01/21/19 21:00 01/28/19 20:59 Daptomycin 500 mg/ Sodium Chloride 55 ml @ 110 mls/hr Q24H IV 01/21/19 20:00 01/28/19 19:59 Diphenhydramine HCl (Benadryl) 25 mg Q6H PRN IVP Itching 01/21/19 18:30 02/20/19 18:29 Fluoxetine HCl (PROzac) 40 mg DAILY ORAL 01/22/19 09:00 02/21/19 08:59 Heparin Sodium (Porcine) (Heparin 5000 units/ml) 5,000 units EVERY 12 HOURS SUBQ 01/21/19 21:00 02/20/19 20:59 Hydromorphone HCl (Dilaudid) 1 mg Q3H PRN IVP For Pain 01/21/19 18:30 01/28/19 18:29 01/21/19 18:33 Ondansetron HCl (Zofran) 4 mg Q6H PRN IVP Nausea & Vomiting 01/21/19 18:30 02/20/19 18:29 Oxycodone/ Acetaminophen (Percocet 5-325) 1 tab Q4H PRN ORAL breakthrough 01/21/19 18:30 01/28/19 18:29 Assessment/Plan Problem List: (1) Hydradenitis ICD Codes: L73.2 - Hidradenitis suppurativa SNOMED: 79309074 (2) Wound cellulitis ICD Codes: L03.90 - Cellulitis, unspecified SNOMED: 269039798 (3) Wound dehiscence ICD Codes: T81.30XA - Disruption of wound, unspecified, initial encounter SNOMED: 378673344 (4) Abscess ICD Codes: L02.91 - Cutaneous abscess, unspecified SNOMED: 826950238 (5) Anxiety ICD Codes: F41.9 - Anxiety disorder, unspecified SNOMED: 59449704 (6) Depression ICD Codes: F32.9 - Major depressive disorder, single episode, unspecified SNOMED: 13635401 (7) Opioid use disorder, moderate, dependence ICD Codes: F11.20 - Opioid dependence, uncomplicated SNOMED: 11154650 Status: stable Assessment/Plan: 23 year old female with hx of Hidradenitis suppurativa presents with right axillary wound dehiscence, purulent discharge and wound cellulitis after recent surgery and wound closure in December 2018 at which time hospital course also complicated by sepsis from Pneumonia. No evidence of sirs or sepsis currently, although BP is low normal, may be developing sirs/sepsis, also patient is on immunosuppressants. No leukocytosis, tachycardia or fever. #R axillary Hidradenitis suppurativa- wound dehiscence and cellulitis with purulent discharge Admit to med/surg IV antibiotics- Cefepime, and Daptomycin. d/w Dr. Diallo Plastic surgery consult with Dr. Dr. Brambila, who will take the patient to the OR for Right axillary debridement tomorrow NPO after midnight f/u OR cultures and sensitivities IV fluids while NPO pain control- IV Benadryl for pleuritis. Pain management consult monitor vitals #Crohn's- stable. Remicade every 8 weeks. Due tomorrow. Will hold off due to infection #Depression/Anxiety- stable. Continue home fluoxetine, and Aripiprazole. #vte ppx: Heparin #GI ppx: omeprazole Code status: full code I spent 70 minutes on this encounter. > 50% spent on counselling and care coordination. Case d/w Drs. Brambila and Imani. d/w patient I spent an additional 35 minutes on review of medical records including prior hospitalization, procedures and imagining Isidro Johnson M.D. Jan 21, 2019 20:22
[2019-01-21] MEDS: oxyCODONE HCL/Acetaminophen 5/325mg ORAL PRN (20:26)
[2019-01-21] MEDS: Cefepime 2gm in D5W 55ml IVPB SCH (21:42)
[2019-01-21] MEDS: DiphenhydrAMINE 50mg/ml Inj IVP PRN (22:16)
--- NOTE | 2019-01-21 22:58 | NUR ---
NURSE NOTES: Pt c/o burning and itching all over her body. Called Dr. Cabrera. Awaitting for call back. Charge Nurse Kimberly made aware.
--- NOTE | 2019-01-21 23:25 | NUR ---
NURSE NOTES: Dr. Brambila called and instructed to keep the pt NPO starting at 5am today. He also asked for a consent for right axillary wound debridement and possible closure. Charge Nurse Kimberly made aware.
--- NOTE | 2019-01-21 23:30 | NUR ---
NURSE NOTES: Dr. Casey Ortega called and gave an order of Atarax 25mg po Q6H prn for itching. Charge Nurse Kimberly made aware.
[2019-01-21 23:44] VITALS: BP 107/64
[2019-01-21] MEDS: HydrOXYzine tab 25mg tab ORAL PRN (23:49)
[2019-01-22] VITALS (20 sets, daily range): BP systolic 91–131; BP diastolic 53–110
[2019-01-22] MEDS: HYDROmorphone 1mg/ml Carpuject IVP PRN ×6 (01:21→21:19)
[2019-01-22] MEDS: DiphenhydrAMINE 50mg/ml Inj IVP PRN ×3 (04:38→18:43)
[2019-01-22 06:15] LABS: BASOPHILS % (AUTO) 1.2 % (0.0-2.0); EOSINOPHILS % (AUTO) 2.4 % (0.0-3.0); HEMATOCRIT 34.7 % (37.0-47.0); HEMOGLOBIN 11.1 G/DL (12.0-16.0); LYMPHOCYTES % (AUTO) 43.5 % (20.0-45.0); MEAN CORPUSCULAR VOLUME 84 FL (80-99); MONOCYTES % (AUTO) 10.5 % (1.0-10.0); NEUTROPHILS % (AUTO) 42.5 % (45.0-75.0); PLATELET COUNT 320 K/UL (150-450); RED BLOOD COUNT 4.13 M/UL (4.20-5.40); RED CELL DISTRIBUTION WIDTH 13.5 % (11.6-14.8); WHITE BLOOD COUNT 8.9 K/UL (4.8-10.8)
[2019-01-22 06:39] LABS: ANION GAP 8 mmol/L (5-15); BLOOD UREA NITROGEN 13 mg/dL (7-18); CARBON DIOXIDE 25 MMOL/L (21-32); CHLORIDE 108 MMOL/L (98-107); CREATININE 0.8 MG/DL (0.55-1.30); POTASSIUM 4.2 MMOL/L (3.5-5.1); SODIUM 141 MMOL/L (136-145)
--- NOTE | 2019-01-22 07:20 | NUR ---
HAND-OFF: Report given to LIA Madrigal.
--- NOTE | 2019-01-22 07:37 | NUR ---
NURSE NOTES: WALKING ROUNDS DONE WITH OUTGOING RN. PATIENT AWAKE IN BED. NPO FOR SURGERY THIS A.M. DISCUSSED PLAN OF CARE FOR THE DAY.VERBALIZED UNDERSTANDING. BED IN LOW AND LOCKED POSITION.
--- NOTE | 2019-01-22 08:55 | General Progress Note ---
Assessment/Plan Assessment/Plan: (1) Right axillary wound reconstruction status post excision of hidradenitis with flap reconstruction with a postoperative wound infection (2) Right Axilla pain Patient will be continued on Dilaudid IV and Percocet D/w Dr. Long and he concurred. Subjective Date patient seen: Jan 22, 2019 Time patient seen: 08:30 - am Allergies: Coded Allergies: SILVER (Verified Allergy, Mild, 06/13/18) AZATHIOPRINE (Verified Allergy, Unknown, 05/15/18) DOCUSATE (Verified Allergy, Unknown, 05/15/18) ok for oral LATEX (Verified Allergy, Unknown, 05/15/18) VANCOMYCIN (Verified Allergy, Unknown, 05/15/18) BISACODYL (Verified Adverse Reaction, Severe, Rash, 05/15/18) Uncoded Allergies: IODINE CONTRAST (Allergy, Unknown, 05/15/18) TAPE (Allergy, Unknown, 05/15/18) Subjective Constitutional: Reports: no symptoms HEENT: Reports: no symptoms Cardiovascular: Reports: no symptoms Respiratory: Reports: cough Gastrointestinal/Abdominal: Reports: no symptoms Genitourinary: Reports: no symptoms Neurologic/Psychiatric: Reports: no symptoms Endocrine: Reports: no symptoms Hematologic/Lymphatic: Reports: no symptoms Subjective Patient is a known patient admitted under the care of Dr. Cabrera and Elizabeth Found to have increased discharge and pain at right axilla s/p surgery at last admission. Started on Dilaudid 1mg IV Q3H PRN and Percocet 5/325mg PO 1 tab Q4H PRN. She is waiting to be seen by the surgeon. Objective Last 24 Hour Vital Signs Date Time Temp Pulse Resp B/P (MAP) Pulse Ox O2 Delivery O2 Flow Rate FiO2 01/22/19 08:00 98.5 80 20 97/58 (71) 99 01/22/19 05:51 98.4 01/22/19 04:00 98.4 69 18 107/53 (71) 98 69 01/21/19 23:44 97.5 77 20 107/64 (78) 98 77 01/21/19 21:00 Room Air 01/21/19 20:56 98.7 01/21/19 20:00 98.7 74 18 108/74 (85) 97 74 01/21/19 17:40 Room Air 01/21/19 17:39 98.0 79 16 115/76 100 Room Air 01/21/19 17:02 98.3 84 16 117/65 96 Room Air 01/21/19 15:05 77 17 Room Air 01/21/19 15:05 98.4 87 17 104/71 99 Room Air 01/21/19 14:59 98.4 77 17 104/71 (82) 99 Room Air Intake and Output 01/21/19 01/22/19 18:59 06:59 Intake Total 0 ml 110 ml Balance 0 ml 110 ml Intake Oral 0 ml IV Total 110 ml # Bowel Movements 1 Laboratory Tests 01/21/19 15:40: White Blood Count 10.7, Red Blood Count 4.64, Hemoglobin 12.3, Hematocrit 38.5, Mean Corpuscular Volume 83, Mean Corpuscular Hemoglobin 26.6L, Mean Corpuscular Hemoglobin Concent 32.1, Red Cell Distribution Width 13.4, Platelet Count 365, Mean Platelet Volume 5.7L, Neutrophils (%) (Auto) 61.9, Lymphocytes (%) (Auto) 29.8, Monocytes (%) (Auto) 6.3, Eosinophils (%) (Auto) 0.9, Basophils (%) (Auto ) 1.0, Urine HCG, Qualitative Negative, Sodium Level 138, Potassium Level 4.5, Chloride Level 105, Carbon Dioxide Level 24, Anion Gap 9, Blood Urea Nitrogen 10 , Creatinine 0.8, Estimat Glomerular Filtration Rate > 60, Glucose Level 120H, Lactic Acid Level 1.10, Calcium Level 8.3L, Phosphorus Level 4.1, Magnesium Level 1.9, Total Bilirubin 0.3, Aspartate Amino Transf (AST/SGOT) 23, Alanine Aminotransferase (ALT/SGPT) 30, Alkaline Phosphatase 66, Total Creatine Kinase 48, Creatine Kinase MB < 0.5, Creatine Kinase MB Relative Index 1.0, Total Protein 7.8, Albumin 3.2L, Globulin 4.6, Albumin/Globulin Ratio 0.7L 01/22/19 05:40: White Blood Count 8.9, Red Blood Count 4.13L, Hemoglobin 11.1L, Hematocrit 34.7L , Mean Corpuscular Volume 84, Mean Corpuscular Hemoglobin 27.0, Mean Corpuscular Hemoglobin Concent 32.1, Red Cell Distribution Width 13.5, Platelet Count 320, Mean Platelet Volume 6.0L, Neutrophils (%) (Auto) 42.5L, Lymphocytes (%) (Auto) 43.5, Monocytes (%) (Auto) 10.5H, Eosinophils (%) (Auto) 2.4, Basophils (%) (Auto) 1.2, Sodium Level 141, Potassium Level 4.2, Chloride Level 108H, Carbon Dioxide Level 25, Anion Gap 8, Blood Urea Nitrogen 13, Creatinine 0.8, Estimat Glomerular Filtration Rate > 60, Glucose Level 98, Calcium Level 8.0L Height (Feet): 5 Height (Inches): 5.00 Weight (Pounds): 188 Objective General Appearance: no apparent distress, alert EENT: PERRL/EOMI, normal ENT inspection Neck: non-tender, normal alignment Respiratory/Chest: lungs clear, normal breath sounds Abdomen: normal bowel sounds, non tender Extremities: other - right axilla redness and discharge noted Edema: no edema noted Generalized Neurologic: alert, oriented x 3 Skin: normal pigmentation Hao Aldana Jan 22, 2019 08:55
[2019-01-22] MEDS: Heparin 5000 units/ml inj SUBQ SCH ×2 (09:00→20:52)
[2019-01-22] MEDS: ARIPiprazole 2mg tab ORAL SCH (09:00)
[2019-01-22] MEDS: oxyCODONE HCL/Acetaminophen 5/325mg ORAL PRN ×2 (09:54→14:05)
[2019-01-22] MEDS: Cefepime 2gm in D5W 55ml IVPB SCH ×2 (10:08→20:54)
--- NOTE | 2019-01-22 12:47 | Infectious Diseases Prog Note ---
Assessment/Plan Assessment/Plan Full consult dictated: A) 1) right axilla infected wound with cellulitis, ? abscess drainage 2) hx of hidradenitis and axilla surgery recently 3) pmh noted 4) allergies vancomycin, ? reaction to daptomycin with severe itching per patient P) 1) change abx to clindamycin and cefepime 2) f/u on wound culture 3) possible debridement per surgery 4) thank you Subjective Allergies: Coded Allergies: SILVER (Verified Allergy, Mild, 06/13/18) AZATHIOPRINE (Verified Allergy, Unknown, 05/15/18) DOCUSATE (Verified Allergy, Unknown, 05/15/18) ok for oral LATEX (Verified Allergy, Unknown, 05/15/18) VANCOMYCIN (Verified Allergy, Unknown, 05/15/18) BISACODYL (Verified Adverse Reaction, Severe, Rash, 05/15/18) Uncoded Allergies: IODINE CONTRAST (Allergy, Unknown, 05/15/18) TAPE (Allergy, Unknown, 05/15/18) Objective Vital Signs Last 24 Hour Vital Signs Date Time Temp Pulse Resp B/P (MAP) Pulse Ox O2 Delivery O2 Flow Rate FiO2 01/22/19 12:30 98.7 01/22/19 12:00 98.7 68 19 104/60 (75) 97 01/22/19 11:50 98.7 68 17 104/60 (75) 97 01/22/19 10:24 98.4 01/22/19 09:00 Room Air 01/22/19 08:00 98.5 80 20 97/58 (71) 99 01/22/19 04:00 98.4 69 18 107/53 (71) 98 69 01/21/19 23:44 97.5 77 20 107/64 (78) 98 77 01/21/19 21:00 Room Air 01/21/19 20:00 98.7 74 18 108/74 (85) 97 74 01/21/19 17:40 Room Air 01/21/19 17:39 98.0 79 16 115/76 100 Room Air 01/21/19 17:02 98.3 84 16 117/65 96 Room Air 01/21/19 15:05 77 17 Room Air 01/21/19 15:05 98.4 87 17 104/71 99 Room Air 01/21/19 14:59 98.4 77 17 104/71 (82) 99 Room Air Height (Feet): 5 Height (Inches): 5.00 Weight (Pounds): 188 Microbiology Date/Time Source Procedure Growth Status 01/21/19 17:00 Rectum Received 01/21/19 17:00 Axilla Right Gram Stain Pending Resulted 01/21/19 17:00 Axilla Right Wound Culture - Preliminary Resulted Laboratory Tests Test 01/21/19 15:40 01/22/19 05:40 White Blood Count 10.7 K/UL (4.8-10.8) 8.9 K/UL (4.8-10.8) Red Blood Count 4.64 M/UL (4.20-5.40) 4.13 M/UL (4.20-5.40) L Hemoglobin 12.3 G/DL (12.0-16.0) 11.1 G/DL (12.0-16.0) L Hematocrit 38.5 % (37.0-47.0) 34.7 % (37.0-47.0) L Mean Corpuscular Volume 83 FL (80-99) 84 FL (80-99) Mean Corpuscular Hemoglobin 26.6 PG (27.0-31.0) L 27.0 PG (27.0-31.0) Mean Corpuscular Hemoglobin Concent 32.1 G/DL (32.0-36.0) 32.1 G/DL (32.0-36.0) Red Cell Distribution Width 13.4 % (11.6-14.8) 13.5 % (11.6-14.8) Platelet Count 365 K/UL (150-450) 320 K/UL (150-450) Mean Platelet Volume 5.7 FL (6.5-10.1) L 6.0 FL (6.5-10.1) L Neutrophils (%) (Auto) 61.9 % (45.0-75.0) 42.5 % (45.0-75.0) L Lymphocytes (%) (Auto) 29.8 % (20.0-45.0) 43.5 % (20.0-45.0) Monocytes (%) (Auto) 6.3 % (1.0-10.0) 10.5 % (1.0-10.0) H Eosinophils (%) (Auto) 0.9 % (0.0-3.0) 2.4 % (0.0-3.0) Basophils (%) (Auto) 1.0 % (0.0-2.0) 1.2 % (0.0-2.0) Urine HCG, Qualitative Negative (NEGATIVE) Sodium Level 138 MMOL/L (136-145) 141 MMOL/L (136-145) Potassium Level 4.5 MMOL/L (3.5-5.1) 4.2 MMOL/L (3.5-5.1) Chloride Level 105 MMOL/L (98-107) 108 MMOL/L (98-107) H Carbon Dioxide Level 24 MMOL/L (21-32) 25 MMOL/L (21-32) Anion Gap 9 mmol/L (5-15) 8 mmol/L (5-15) Blood Urea Nitrogen 10 mg/dL (7-18) 13 mg/dL (7-18) Creatinine 0.8 MG/DL (0.55-1.30) 0.8 MG/DL (0.55-1.30) Estimat Glomerular Filtration Rate > 60 mL/min (>60) > 60 mL/min (>60) Glucose Level 120 MG/DL (74-106) H 98 MG/DL (74-106) Lactic Acid Level 1.10 mmol/L (0.4-2.0) Calcium Level 8.3 MG/DL (8.5-10.1) L 8.0 MG/DL (8.5-10.1) L Phosphorus Level 4.1 MG/DL (2.5-4.9) Magnesium Level 1.9 MG/DL (1.8-2.4) Total Bilirubin 0.3 MG/DL (0.2-1.0) Aspartate Amino Transf (AST/SGOT) 23 U/L (15-37) Alanine Aminotransferase (ALT/SGPT) 30 U/L (12-78) Alkaline Phosphatase 66 U/L (46-116) Total Creatine Kinase 48 U/L (26-308) Creatine Kinase MB < 0.5 NG/ML (0.0-3.6) Creatine Kinase MB Relative Index 1.0 Total Protein 7.8 G/DL (6.4-8.2) Albumin 3.2 G/DL (3.4-5.0) L Globulin 4.6 g/dL Albumin/Globulin Ratio 0.7 (1.0-2.7) L Current Medications Medications (Trade) Dose Ordered Sig/Alix Route PRN Reason Start Time Stop Time Status Last Admin Dose Admin Aripiprazole (Abilify) 2 mg DAILY ORAL 01/22/19 09:00 02/21/19 08:59 Cefepime HCl 2 gm/ Dextrose 55 ml @ 110 mls/hr EVERY 12 HOURS IVPB 01/21/19 21:00 01/28/19 20:59 01/22/19 10:08 Daptomycin 500 mg/ Sodium Chloride 55 ml @ 110 mls/hr Q24H IV 01/21/19 20:00 01/28/19 19:59 01/21/19 20:25 Diphenhydramine HCl (Benadryl) 25 mg Q6H PRN IVP Itching 01/21/19 18:30 02/20/19 18:29 01/22/19 10:33 Fluoxetine HCl (PROzac) 40 mg DAILY ORAL 01/22/19 09:00 02/21/19 08:59 Heparin Sodium (Porcine) (Heparin 5000 units/ml) 5,000 units EVERY 12 HOURS SUBQ 01/21/19 21:00 02/20/19 20:59 Hydromorphone HCl (Dilaudid) 1 mg Q3H PRN IVP For Pain 01/21/19 18:30 01/28/19 18:29 01/22/19 12:00 Hydroxyzine HCl (Atarax) 25 mg Q6H PRN ORAL Itching 01/21/19 23:30 02/20/19 23:29 01/21/19 23:49 Ondansetron HCl (Zofran) 4 mg Q6H PRN IVP Nausea & Vomiting 01/21/19 18:30 02/20/19 18:29 Oxycodone/ Acetaminophen (Percocet 5-325) 1 tab Q4H PRN ORAL breakthrough 01/21/19 18:30 01/28/19 18:29 01/22/19 09:54 Niya Holley MD Jan 22, 2019 12:47
--- NOTE | 2019-01-22 14:09 | Anethesia Preoperative Eval ---
Anesthesia Pre-op PMH/ROS General Date of Evaluation: Jan 22, 2019 Time of Evaluation: 14:04 Anesthesiologist: Mariola ASA Score: ASA 2 Mallampati Score Class I : Soft palate, uvula, fauces, pillars visible Class II: Soft palate, uvula, fauces visible Class III: Soft palate, base of uvula visible Class IV: Only hard plate visible Mallampati Classification: Class II Surgeon: Patty Diagnosis: R axillary wound infection Surgical Procedure: I&D of R axillary wound Anesthesia History: PONV Family History: no anesthesia problems Allergies: Coded Allergies: SILVER (Verified Allergy, Mild, 06/13/18) AZATHIOPRINE (Verified Allergy, Unknown, 05/15/18) DOCUSATE (Verified Allergy, Unknown, 05/15/18) ok for oral LATEX (Verified Allergy, Unknown, 05/15/18) VANCOMYCIN (Verified Allergy, Unknown, 05/15/18) BISACODYL (Verified Adverse Reaction, Severe, Rash, 05/15/18) Uncoded Allergies: IODINE CONTRAST (Allergy, Unknown, 05/15/18) TAPE (Allergy, Unknown, 05/15/18) Medications: see eMAR Patient NPO?: Yes NPO Date: Jan 22, 2019 NPO Time: 0500 Past Medical History Cardiovascular: Denies: HTN, CAD, MT, valve dz, arrhythmia, other Pulmonary: Denies: asthma, COPD, INDIRA, other Gastrointestinal/Genitourinary: Reports: GERD; Denies: CRI, ESRD, other Neurologic/Psychiatric: Reports: depression/anxiety; Denies: dementia, CVA, TIA, other Endocrine: Denies: DM, hypothyroidism, steroids, other HEENT: Denies: cataract (L), cataract (R), glaucoma, [place] (L), [place] (R), other Hematology/Immune: Reports: anemia - mild; Denies: DVT, bleeding disorder, other Musculoskeletal/Integumentary: Reports: edema - recurrent HS; Denies: OA, RA, DJD, DDD, other Other: obesity PMH Narrative: as above PSxH Narrative: Multiple Sx fr treatment of HS Anesthesia Pre-op Phys. Exam Physician Exam Last Vital Signs Date Time Temp Pulse Resp B/P (MAP) Pulse Ox O2 Delivery O2 Flow Rate FiO2 01/22/19 12:30 98.7 01/22/19 12:00 68 19 104/60 (75) 97 01/22/19 09:00 Room Air Constitutional: NAD Neurologic: CN 2-12 intact Cardiovascular: RRR, no M/R/G Respiratory: CTA Gastrointestinal: other - obesity Airway Exam Mallampati Score: Class II MO: full Neck: flexible ROM: full Teeth: intact Dentures: no upper, no lower Anesthesia Pre-op A/P Labs Hematology Test 01/21/19 15:40 01/22/19 05:40 White Blood Count 10.7 K/UL (4.8-10.8) 8.9 K/UL (4.8-10.8) Red Blood Count 4.64 M/UL (4.20-5.40) 4.13 M/UL (4.20-5.40) L Hemoglobin 12.3 G/DL (12.0-16.0) 11.1 G/DL (12.0-16.0) L Hematocrit 38.5 % (37.0-47.0) 34.7 % (37.0-47.0) L Mean Corpuscular Volume 83 FL (80-99) 84 FL (80-99) Mean Corpuscular Hemoglobin 26.6 PG (27.0-31.0) L 27.0 PG (27.0-31.0) Mean Corpuscular Hemoglobin Concent 32.1 G/DL (32.0-36.0) 32.1 G/DL (32.0-36.0) Red Cell Distribution Width 13.4 % (11.6-14.8) 13.5 % (11.6-14.8) Platelet Count 365 K/UL (150-450) 320 K/UL (150-450) Mean Platelet Volume 5.7 FL (6.5-10.1) L 6.0 FL (6.5-10.1) L Neutrophils (%) (Auto) 61.9 % (45.0-75.0) 42.5 % (45.0-75.0) L Lymphocytes (%) (Auto) 29.8 % (20.0-45.0) 43.5 % (20.0-45.0) Monocytes (%) (Auto) 6.3 % (1.0-10.0) 10.5 % (1.0-10.0) H Eosinophils (%) (Auto) 0.9 % (0.0-3.0) 2.4 % (0.0-3.0) Basophils (%) (Auto) 1.0 % (0.0-2.0) 1.2 % (0.0-2.0) Chemistry Test 01/21/19 15:40 01/22/19 05:40 Sodium Level 138 MMOL/L (136-145) 141 MMOL/L (136-145) Potassium Level 4.5 MMOL/L (3.5-5.1) 4.2 MMOL/L (3.5-5.1) Chloride Level 105 MMOL/L (98-107) 108 MMOL/L (98-107) H Carbon Dioxide Level 24 MMOL/L (21-32) 25 MMOL/L (21-32) Anion Gap 9 mmol/L (5-15) 8 mmol/L (5-15) Blood Urea Nitrogen 10 mg/dL (7-18) 13 mg/dL (7-18) Creatinine 0.8 MG/DL (0.55-1.30) 0.8 MG/DL (0.55-1.30) Estimat Glomerular Filtration Rate > 60 mL/min (>60) > 60 mL/min (>60) Glucose Level 120 MG/DL (74-106) H 98 MG/DL (74-106) Lactic Acid Level 1.10 mmol/L (0.4-2.0) Calcium Level 8.3 MG/DL (8.5-10.1) L 8.0 MG/DL (8.5-10.1) L Phosphorus Level 4.1 MG/DL (2.5-4.9) Magnesium Level 1.9 MG/DL (1.8-2.4) Total Bilirubin 0.3 MG/DL (0.2-1.0) Aspartate Amino Transf (AST/SGOT) 23 U/L (15-37) Alanine Aminotransferase (ALT/SGPT) 30 U/L (12-78) Alkaline Phosphatase 66 U/L (46-116) Total Creatine Kinase 48 U/L (26-308) Creatine Kinase MB < 0.5 NG/ML (0.0-3.6) Creatine Kinase MB Relative Index 1.0 Total Protein 7.8 G/DL (6.4-8.2) Albumin 3.2 G/DL (3.4-5.0) L Globulin 4.6 g/dL Albumin/Globulin Ratio 0.7 (1.0-2.7) L Urine Test Test 01/21/19 15:40 Urine HCG, Qualitative Negative (NEGATIVE) Risk Assessment & Plan Assessment: ASA 2 Plan: GA with LMA Status Change Before Surgery: No Pre-Antibiotics Drug: as scheduled Baudilio Garnett MD Jan 22, 2019 14:09
[2019-01-22] MEDS: Clindamycin 600mg 50 ML IV SCH ×2 (14:59→22:24)
--- NOTE | 2019-01-22 15:11 | General Progress Note ---
Assessment/Plan Problem List: (1) Hydradenitis ICD Codes: L73.2 - Hidradenitis suppurativa SNOMED: 02504258 (2) Wound cellulitis ICD Codes: L03.90 - Cellulitis, unspecified SNOMED: 936419228 (3) Wound dehiscence ICD Codes: T81.30XA - Disruption of wound, unspecified, initial encounter SNOMED: 102397999 (4) Abscess ICD Codes: L02.91 - Cutaneous abscess, unspecified SNOMED: 651484583 (5) Anxiety ICD Codes: F41.9 - Anxiety disorder, unspecified SNOMED: 22326289 (6) Depression ICD Codes: F32.9 - Major depressive disorder, single episode, unspecified SNOMED: 79298344 (7) Opioid use disorder, moderate, dependence ICD Codes: F11.20 - Opioid dependence, uncomplicated SNOMED: 68333665 Status: stable Assessment/Plan: 23 year old female with hx of Hidradenitis suppurativa presents with right axillary wound dehiscence, purulent discharge and wound cellulitis after recent surgery and wound closure in December 2018 at which time hospital course also complicated by sepsis from Pneumonia. No evidence of sirs or sepsis currently, although BP is low normal, may be developing sirs/sepsis, also patient is on immunosuppressants. No leukocytosis, tachycardia or fever. #R axillary Hidradenitis suppurativa- wound dehiscence and cellulitis with purulent discharge Admit to med/surg IV antibiotics- Cefepime, and Daptomycin. d/w Dr. Diallo however will stop Daptomycin due to severe itching. Has allergies to Vancomycin and can't be on Zyvox due to being on antidepressants. Fermin start Clindamycin. Plastic surgery consult with Dr. Dr. Brambila, who will take the patient to the OR for Right axillary debridement today NPO after midnight f/u OR cultures and sensitivities IV fluids while NPO pain control- IV Benadryl for pleuritis. Pain management consult monitor vitals #Crohn's- stable. Remicade every 8 weeks. Due tomorrow. Will hold off due to infection- Used to see Dr. Ramirez, she wa splanning on seeing a new doctor in the same practice, Dr. Marielos Rapp [phone]. #Depression/Anxiety- stable. Continue home fluoxetine, and Aripiprazole. #vte ppx: Heparin #GI ppx: omeprazole Code status: full code I spent 40 minutes on this encounter. > 50% spent on counselling and care coordination. Case d/w Drs. Brambila and Imani. d/w patient Subjective Date patient seen: Jan 22, 2019 ROS Limited/Unobtainable: No Constitutional: Reports: other - severe itching with daptomycin Cardiovascular: Denies: no symptoms, chest pain, edema, irregular heart rate, lightheadedness, palpitations, syncope, other Respiratory: Denies: no symptoms, cough, orthopnea, shortness of breath, SOB with excertion, SOB at rest, sputum, stridor, wheezing, other Gastrointestinal/Abdominal: Denies: no symptoms, abdomen distended, abdominal pain, black stools, tarry stools, blood in stool, constipated, diarrhea, difficulty swallowing, nausea, poor appetite, poor fluid intake, rectal bleeding , vomiting, other Genitourinary: Denies: no symptoms, burning, discharge, frequency, flank pain, hematuria, incontinence, pain, urgency, other Neurologic/Psychiatric: Denies: no symptoms, anxiety, depressed, emotional problems, headache, numbness, paresthesia, pre-existing deficit, seizure, tingling, tremors, weakness, other Endocrine: Denies: no symptoms, excessive sweating, flushing, intolerance to cold, intolerance to heat, increased hunger, increased thirst, increased urine, unexplained weight gain, unexplained weight loss, other Hematologic/Lymphatic: Denies: no symptoms, anemia, easy bleeding, easy bruising, other Allergies: Coded Allergies: SILVER (Verified Allergy, Mild, 06/13/18) AZATHIOPRINE (Verified Allergy, Unknown, 05/15/18) DOCUSATE (Verified Allergy, Unknown, 05/15/18) ok for oral LATEX (Verified Allergy, Unknown, 05/15/18) VANCOMYCIN (Verified Allergy, Unknown, 05/15/18) BISACODYL (Verified Adverse Reaction, Severe, Rash, 05/15/18) Uncoded Allergies: IODINE CONTRAST (Allergy, Unknown, 05/15/18) TAPE (Allergy, Unknown, 05/15/18) Subjective seen and examined walking around medical lobato, in great spirit. no fevers. however extreme itching to daptomycin Objective Last 24 Hour Vital Signs Date Time Temp Pulse Resp B/P (MAP) Pulse Ox O2 Delivery O2 Flow Rate FiO2 01/22/19 14:35 98.7 01/22/19 12:30 98.7 01/22/19 12:00 98.7 68 19 104/60 (75) 97 01/22/19 11:50 98.7 68 17 104/60 (75) 97 01/22/19 09:00 Room Air 01/22/19 08:00 98.5 80 20 97/58 (71) 99 01/22/19 04:00 98.4 69 18 107/53 (71) 98 69 01/21/19 23:44 97.5 77 20 107/64 (78) 98 77 01/21/19 21:00 Room Air 01/21/19 20:00 98.7 74 18 108/74 (85) 97 74 01/21/19 17:40 Room Air 01/21/19 17:39 98.0 79 16 115/76 100 Room Air 01/21/19 17:02 98.3 84 16 117/65 96 Room Air 01/21/19 15:05 77 17 Room Air 01/21/19 15:05 98.4 87 17 104/71 99 Room Air Intake and Output 01/21/19 01/22/19 18:59 06:59 Intake Total 0 ml 110 ml Balance 0 ml 110 ml Intake Oral 0 ml IV Total 110 ml # Bowel Movements 1 Laboratory Tests 01/21/19 15:40: White Blood Count 10.7, Red Blood Count 4.64, Hemoglobin 12.3, Hematocrit 38.5, Mean Corpuscular Volume 83, Mean Corpuscular Hemoglobin 26.6L, Mean Corpuscular Hemoglobin Concent 32.1, Red Cell Distribution Width 13.4, Platelet Count 365, Mean Platelet Volume 5.7L, Neutrophils (%) (Auto) 61.9, Lymphocytes (%) (Auto) 29.8, Monocytes (%) (Auto) 6.3, Eosinophils (%) (Auto) 0.9, Basophils (%) (Auto ) 1.0, Urine HCG, Qualitative Negative, Sodium Level 138, Potassium Level 4.5, Chloride Level 105, Carbon Dioxide Level 24, Anion Gap 9, Blood Urea Nitrogen 10 , Creatinine 0.8, Estimat Glomerular Filtration Rate > 60, Glucose Level 120H, Lactic Acid Level 1.10, Calcium Level 8.3L, Phosphorus Level 4.1, Magnesium Level 1.9, Total Bilirubin 0.3, Aspartate Amino Transf (AST/SGOT) 23, Alanine Aminotransferase (ALT/SGPT) 30, Alkaline Phosphatase 66, Total Creatine Kinase 48, Creatine Kinase MB < 0.5, Creatine Kinase MB Relative Index 1.0, Total Protein 7.8, Albumin 3.2L, Globulin 4.6, Albumin/Globulin Ratio 0.7L 01/22/19 05:40: White Blood Count 8.9, Red Blood Count 4.13L, Hemoglobin 11.1L, Hematocrit 34.7L , Mean Corpuscular Volume 84, Mean Corpuscular Hemoglobin 27.0, Mean Corpuscular Hemoglobin Concent 32.1, Red Cell Distribution Width 13.5, Platelet Count 320, Mean Platelet Volume 6.0L, Neutrophils (%) (Auto) 42.5L, Lymphocytes (%) (Auto) 43.5, Monocytes (%) (Auto) 10.5H, Eosinophils (%) (Auto) 2.4, Basophils (%) (Auto) 1.2, Sodium Level 141, Potassium Level 4.2, Chloride Level 108H, Carbon Dioxide Level 25, Anion Gap 8, Blood Urea Nitrogen 13, Creatinine 0.8, Estimat Glomerular Filtration Rate > 60, Glucose Level 98, Calcium Level 8.0L Height (Feet): 5 Height (Inches): 5.00 Weight (Pounds): 188 Objective General Appearance: mild distress due to pain - uncomfortable Head: normocephalic, atraumatic Eyes: bilateral eye PERRL, bilateral eye EOMI ENT: dry mucus membranes Neck: supple Respiratory: lungs cta bl, no rales or rhonchi Cardiovascular : regular rate, rhythm Gastrointestinal: non tender, soft, obese, +bs Musculoskeletal: normal inspection Neurologic: alert, oriented x4, grossly normal Psychiatric: normal affect Skin: Area of dehiscence on several sites on the right axilla, increased erythema and foul smelling yellow/green discharge Lymphatic: no adenopathy Isidro Johnson M.D. Jan 22, 2019 15:11
--- NOTE | 2019-01-22 15:25 | NUR ---
NURSE NOTES: received patient A/A/Ox4, observed NPO. IV access patent and intact and IVF infusing well. No acute resp distress noted. ambulates. kept bed in the lowest position. siderails are up x2, bed is on lock mode. wound drsg in placed on right axilla. will cont to monitor.
--- NOTE | 2019-01-22 15:37 | NUR ---
HAND-OFF: Report given to MYRIAM RIOS.
--- NOTE | 2019-01-22 15:47 | Pre-Procedure Note/Attestation ---
Pre-Procedure Note/Attestation Complete Prior to Procedure Planned Procedure: right Indications for Procedure Pre-Operative Diagnosis: Right axillary debridement and possible partial closure Attestation I attest that I discussed the nature of the procedure; its benefits; risks and complications; and alternatives (and the risks and benefits of such alternatives ), prior to the procedure, with the patient (or the patient's legal brand representative). I attest that, if there was a reasonable possibility of needing a blood transfusion, the patient (or the patient's legal brand representative) was given the [facility] standardized written summary, pursuant to the Ishan Eli Blood Safety Act ([place] Health and Safety Code # 1645, as amended). I attest that I re-evaluated the patient just prior to the surgery and that there has been no change in the patient's H&P, except as documented below: Sagar Brambila MD Jan 22, 2019 15:47
[2019-01-22] MEDS ORDERED: Midazolam 2mg/2ml Inj ONE (16:08)
[2019-01-22] MEDS ORDERED: fentaNYL 100 mcg/2 mL IV ONE (16:08)
--- NOTE | 2019-01-22 16:15 | NUR ---
NURSE NOTES: handoff done with Shravan and noted. IV access patent and intact. NPO after midnight. No acute resp distress noted.
[2019-01-22] MEDS ORDERED: Propofol 200mg/20ml IV ONE (16:27)
[2019-01-22] MEDS ORDERED: Lidocaine 1% 10mg/ml/EPI 0.01mg/ml 50ml INJ ONE (17:15)
[2019-01-22] MEDS ORDERED: Bacitracin 50000 Units Vial ONE (17:16)
[2019-01-22] MEDS ORDERED: NS Irrig 1000ml ONE (17:30)
[2019-01-22] MEDS ORDERED: Ketorolac 30mg Inj ONE (17:30)
[2019-01-22] MEDS ORDERED: Sterile Water Irrig 1000ml IRRIG ONE (17:30)
[2019-01-22] MEDS ORDERED: LR 1000ml 1,000 ML IVLG SCH (18:11)
[2019-01-22] MEDS ORDERED: Ketorolac 30mg Inj IV PRN (18:15)
[2019-01-22] MEDS ORDERED: Metoclopramide 10mg/2ml Inj IVP PRN (18:15)
[2019-01-22] MEDS ORDERED: Midazolam 2mg/2ml Inj IVP PRN (18:15)
[2019-01-22] MEDS ORDERED: Meperidine 50mg/ml Inj(FOR RIGORS ONLY) IVP PRN (18:15)
[2019-01-22] MEDS ORDERED: Hydromorphone 0.5mg/0.5ml inj IVP PRN (18:15)
[2019-01-22] MEDS ORDERED: Meperidine 50mg/ml Inj(FOR RIGORS ONLY) ONE (18:30)
--- NOTE | 2019-01-22 18:31 | Operative Note - PDOC ---
Operative Note Operative Note Pre-op Diagnosis: Right axillary debridement and wound vac placement Post-op Diagnosis: same as pre-op Surgeon: Patty Senior Economist: Ava Anesthesia: general Specimen: yes Complications: none Estimated Blood Loss: none Drains: wound vac Implant(s) used?: No Sagar Brambila MD Jan 22, 2019 18:31
--- NOTE | 2019-01-22 18:32 | Immediate Post-Op Evaluation ---
Immediate Post-Op Evalulation Immediate Post-Op Evalulation Procedure: I&D of R axillary wound with woundvac placement Date of Evaluation: Jan 22, 2019 Time of Evaluation: 18:30 IV Fluids: 300 Blood Products: none Estimated Blood Loss: min Urinary Output: none Blood Pressure Systolic: 107 Blood Pressure Diastolic: 68 Pulse Rate: 86 Respiratory Rate: 22 O2 Sat by Pulse Oximetry: 99 Temperature (Fahrenheit): 97.5 Pain Score (1-10): 1 Nausea: No Vomiting: No Complications none Patient Status: reacts, patent, none Hydration Status: adequate Baudilio Garnett MD Jan 22, 2019 18:32
--- NOTE | 2019-01-22 18:40 | NUR ---
NURSE NOTES: patient still off the unit.
[2019-01-22] MEDS ORDERED: PCA Education Pamphlet MISC ONE (18:45)
[2019-01-22] MEDS ORDERED: Rate Change PCA 1 Each MISC PRN (18:45)
[2019-01-22] MEDS ORDERED: PCA HYDROmorphone 1mg/ml 30 ML IV PRN (18:45)
[2019-01-22] MEDS: PCA shift volume MISC SCH (19:00)
[2019-01-22] MEDS: PCA HYDROmorphone 1mg/ml 30 ML IV PRN (19:18)
--- NOTE | 2019-01-22 19:27 | NUR ---
HAND-OFF: Report given to Florence.
--- NOTE | 2019-01-22 19:45 | Operative Note - Dictated ---
DATE OF OPERATION: 01/22/2019 PREOPERATIVE DIAGNOSIS: Right axillary wound reconstruction status post excision of hidradenitis with flap reconstruction with a postoperative wound infection. POSTOPERATIVE DIAGNOSIS: Right axillary wound reconstruction status post excision of hidradenitis with flap reconstruction with a postoperative wound infection. PROCEDURES: 1. Debridement of right axillary wound. 2. Placement of wound VAC. SURGEON: Sagar Brambila M.D. BEAUTY THERAPIST: Enzo Escalante M.D. ANESTHESIA: General. COMPLICATIONS: None. DRAINS: Included a wound VAC set to 175 mmHg of continuous suction at high level. Cultures included fluid from the wound. DISPOSITION: Stable to the recovery room. INDICATIONS FOR SURGERY: This is a 23-year-old female, who is well known to me for treatment of her hidradenitis. She had previously undergone excision and reconstruction of left axilla hidradenitis approximately 7 months ago and had undergone a more recent excision and reconstruction of her right axilla for hidradenitis, this occurred approximately three weeks ago. She had been doing well until about several days ago where she complained of some drainage from her wound. She contacted me and based on her symptoms of pain and drainage, I instructed her to come to the hospital for evaluation of her symptoms. On exam, she had areas of dehiscence over the inferior aspect of where the flap was adjacent to the chest wall tissue and based on appearance it seemed that it was appropriate for her to undergo debridement with wound VAC placement. She understood the risks and benefits of surgery and agreed to proceed. DETAILS OF THE OPERATION: The patient was brought to the operating room and laid in the supine position the operating room table. Her right axilla, right arm, and chest were prepped and draped in a sterile and usual fashion. We first began by removing all the sutures that were in place and then we noted the areas of dehiscence in the inferior aspect of the flap. The nonviable tissue was debrided using both sharp technique using a scalpel as well as electrocautery. Upon entering the wound bed, we encountered approximately 5 mL of turbid fluid, which was suctioned out and also cultures were sent from the fluid. We noted that the wound bed was healthy in terms of the granulation tissue but due to the dehiscence it was obvious that a wound VAC would be a good method of dealing with the opening in that area. We did not feel that given the presence of the infection that attempting to re-close the wound would be prudent at this time. Once this area was irrigated with pulse lavage, the wound VAC sponge was fashioned to fit the contour of the lower aspect of the wound. It was placed into the tissue and there was some tunneling on both sides which was addressed with the extension of the wound VAC sponge on both sides. sponge was placed and then the adhesive tape was placed on top of that and the wound VAC was attached to machine was attached to the sponge and it was noted to be working without any leakage. The patient tolerated the procedure well. The plan would be to perform possible bedside wound VAC in 48 to 72 hours followed by likely other inpatient wound VAC change prior to discharge. Of note, the patient has had significant amount of pain as well associated with her wound and this is why I feel that continued inpatient stay at this time would be necessary to allow and treat her symptoms. Sagar Brambila M.D. DR: Shayna JOB#: [id number] CC:
--- NOTE | 2019-01-22 19:45 | NUR ---
NURSE NOTES: Patient arrived post-op unit. Received report from LIA Diaz. Patient ANOx4. On nasal cannula 2L with no signs of distress or SOB. Tolerating liquids. Will advance to regular diet as ordered. VSS. IV site patent and intact. RECYCLE WORKER running as ordered. Patient bed in the lowest position, 2x siderails up. R axilla wound dressing intact. Will continue to monitor. Addendum: 01/23/19 at 0217 by BONITA GARCIA RN Patient arrived from* post-op unit.
--- NOTE | 2019-01-22 20:30 | Consultation ---
DATE OF CONSULTATION: 01/22/2019 INFECTIOUS DISEASE CONSULTATION CONSULTING PHYSICIAN: Niya Holley M.D. ATTENDING PHYSICIAN: Mary Cabrera M.D. REFERRING PHYSICIAN: Isidro Johnson M.D. REASON FOR CONSULTATION: Infected right axilla wound. CHIEF COMPLAINT: The patient's chief complaint coming in to the hospital is wound dehiscence and infected right axilla wound. HISTORY OF PRESENT ILLNESS: This is a very pleasant 23-year-old female, who has history of hidradenitis suppurativa, who in December underwent surgery for the hidradenitis suppurativa. The patient was placed on intravenous antibiotics at that time and discharged on Augmentin and doxycycline, which I believe she finished her course. The patient noticed about 3 days ago wound dehiscence of the right axilla and comes in to [facility] with infected right axilla wound with drainage and surrounding cellulitis and possible drained abscess is unclear at this time. The patient is being followed by Dr. Brambila for plastic surgery for hidradenitis suppurative treatment. Infectious Disease consultation was requested and the patient was initially on daptomycin and cefepime. However, she says she has severe itching with daptomycin despite Benadryl and I am going to change her to clindamycin and cefepime. Wound culture of right axilla infected wound is pending. Case was discussed with Dr. Johnson from the primary care team. MAR was noted. Orders were noted. Notes and records were reviewed. See. REVIEW OF SYSTEMS: CONSTITUTIONAL: The patient has no fever, chills, night sweats, or weight loss. HEAD AND NECK: No head pain or neck pain. No thrush or dysphagia. CARDIAC: No chest pain. GASTROINTESTINAL: No nausea, vomiting, or diarrhea. GENITOURINARY: No dysuria or frequency. PULMONARY: No congestion or shortness of breath. SKIN: No rash. EXTREMITIES: No leg pain. NEUROLOGIC: No seizures. She has right axilla pain and drainage and infected wound. PAST MEDICAL HISTORY: The patient's past medical history includes the following. The patient has a history of Crohn's disease and colectomy. She has history of depression and anxiety. She says she is on Remicade. She has history of hidradenitis suppurativa, status post multiple surgeries. Most recent 1 is right axilla surgery in December 2018. She has opiate use disorder, moderate dependency. MEDICATIONS: Upon reviewing the MAR, she was on daptomycin, which I discontinued. She is on clindamycin. She is on Prozac. She is on , hydroxyzine, cefepime, clindamycin, and heparin. I stopped the daptomycin. She is on hydromorphone, oxycodone, diphenhydramine, and Zofran. Outside medications were noted and reconciliated. She was on Remicade per the list and she was previously on Augmentin and doxycycline, which I believe she has finished the course last month. ALLERGIES: She is allergic to azathioprine, bisacodyl, docusate, iodine contrast, latex, silver tape, and vancomycin. She now is getting severe itching with daptomycin despite Benadryl. SOCIAL HISTORY: Negative for smoking, alcohol, or drug abuse. FAMILY HISTORY: Noncontributory. PHYSICAL EXAM: VITAL SIGNS: Temperature is 98.7, pulse rate is 68, respiratory rate 19, blood pressure 104/60, and saturation 97%. GENERAL: Alert, responsive, and oriented x3. No acute distress. HEAD AND NECK: Oral exam, no thrush. Eye exam, no icterus. Neck is supple. No JVD. Normocephalic. HEART: Regular. No gallop or murmur. ABDOMEN: Soft. Positive bowel sounds. Nontender. LUNGS: Clear bilaterally. No rhonchi or rales. SKIN: No rash. MUSCULOSKELETAL: No effusion. No septic arthritis. LOWER EXTREMITIES: Without cellulitis. PERIPHERAL VASCULAR: No gangrene. GENITOURINARY: No Simmons. No CVA tenderness. LINE SITES: Without phlebitis. NEUROLOGIC: Intact. Alert and oriented. I have examined her right axilla and there is certainly an infected wound with purulent drainage with surrounding cellulitis. LABORATORY DATA: Laboratory data is as follows. White count 8.9 and hemoglobin 11.1. Creatinine is 0.8. Wound culture is pending of the right axilla. ASSESSMENT AND PLAN: 1. The patient has infected right axilla wound with cellulitis with redness surrounding the infected wound of the right axilla with possible drained abscess. She has history of hidradenitis suppurativa with the recent surgery in December. Of note, she is on what looks like Remicade and she certainly has risk for infection being immunocompromised. At this time, she was initially on daptomycin and cefepime for MRSA gram-negative coverage. However, it looks like she is having a reaction to daptomycin with severe itching despite Benadryl. We will change antibiotics to clindamycin and cefepime and check wound culture. The patient to be seen by Dr. Brambila for possible further surgery on the infected right axilla wound with a history of hidradenitis suppurativa. Follow up on wound culture and laboratories. Continue clindamycin and cefepime. The case was also discussed with Dr. Johnson. 2. Crohn's disease. I believe she is also on Remicade per the patient. History of colectomy. 3. Depression. 4. Anxiety. 5. Hidradenitis suppurativa status post multiple surgeries. 6. Allergies to azathioprine, bisacodyl, docusate, iodine contrast, latex, silver tape, vancomycin, and possible daptomycin with itching. 7. Social history is negative for smoking, alcohol, or drug abuse. 8. Family history is noncontributory. 9. MAR is noted. 10. Case was discussed with RN. 11. Case was discussed with Dr. Johnson. 12. Case was discussed with the patient. 13. Continue treatment per primary consultants. Niya Holley M.D. DR: VARGHESE JOB#: [id number] CC:
[2019-01-22] MEDS ORDERED: FLUOXETINE HCL40 MG ORAL (21:09)
[2019-01-23] VITALS: BP 106/59
[2019-01-23] MEDS: HYDROmorphone 1mg/ml Carpuject IVP PRN ×6 (00:25→23:30)
[2019-01-23] MEDS: DiphenhydrAMINE 50mg/ml Inj IVP PRN ×3 (01:23→21:54)
[2019-01-23 04:00] VITALS: BP 103/59
[2019-01-23] MEDS: Clindamycin 600mg 50 ML IV SCH ×3 (05:03→22:06)
[2019-01-23] MEDS: oxyCODONE HCL/Acetaminophen 5/325mg ORAL PRN ×2 (06:09→18:31)
[2019-01-23] MEDS: PCA shift volume MISC SCH ×2 (07:00→19:20)
[2019-01-23 07:09] LABS: BASOPHILS % (AUTO) 0.9 % (0.0-2.0); HEMATOCRIT 31.6 % (37.0-47.0); HEMOGLOBIN 10.3 G/DL (12.0-16.0); LYMPHOCYTES % (AUTO) 35.2 % (20.0-45.0); MEAN CORPUSCULAR VOLUME 84 FL (80-99); MONOCYTES % (AUTO) 9.3 % (1.0-10.0); NEUTROPHILS % (AUTO) 52.6 % (45.0-75.0); PLATELET COUNT 288 K/UL (150-450); RED BLOOD COUNT 3.78 M/UL (4.20-5.40); RED CELL DISTRIBUTION WIDTH 13.6 % (11.6-14.8); WHITE BLOOD COUNT 9.6 K/UL (4.8-10.8)
[2019-01-23 07:22] LABS: ALANINE AMINOTRANSFERASE 24 U/L (12-78); ALBUMIN 2.5 G/DL (3.4-5.0); ALBUMIN/GLOBULIN RATIO 0.7 (1.0-2.7); ALKALINE PHOSPHATASE 58 U/L (46-116); ANION GAP 4 mmol/L (5-15); ASPARTATE AMINO TRANSFERASE 16 U/L (15-37); BILIRUBIN,TOTAL 0.2 MG/DL (0.2-1.0); BLOOD UREA NITROGEN 14 mg/dL (7-18); CALCIUM 7.8 MG/DL (8.5-10.1); CARBON DIOXIDE 29 MMOL/L (21-32); CHLORIDE 107 MMOL/L (98-107); CREATININE 1.1 MG/DL (0.55-1.30); POTASSIUM 4.2 MMOL/L (3.5-5.1); SODIUM 140 MMOL/L (136-145)
--- NOTE | 2019-01-23 07:40 | NUR ---
NURSE NOTES: Patient is in bed awake and able to verbalize needs. Stable. Complains of pain, has MOBILE HOME LABORER in place and is stating MOBILE HOME LABORER is effective at pain management. Breathing is even and unlabored. Plan of care discussed with patient. Patient is in bed in locked and lowest position with call light within reach. Will continue to monitor.
--- NOTE | 2019-01-23 07:47 | NUR ---
HAND-OFF: Report given to LIA Gli.
[2019-01-23 08:00] VITALS: BP 115/54
[2019-01-23] MEDS: ARIPiprazole 2mg tab ORAL SCH (08:20)
[2019-01-23] MEDS: Heparin 5000 units/ml inj SUBQ SCH ×2 (08:24→21:20)
--- NOTE | 2019-01-23 08:42 | 48 Hour Post Anesthesia Eval ---
Post Anesthesia Evaluation Procedure: I&D of R axillary wound with woundvac placement Date of Evaluation: Jan 23, 2019 Time of Evaluation: 06:18 Blood Pressure Systolic: 103 0: 59 Pulse Rate: 95 Respiratory Rate: 22 Temperature (Fahrenheit): 98.1 O2 Sat by Pulse Oximetry: 95 Airway: patent Nausea: No Vomiting: No Pain Intensity: 2 Hydration Status: adequate Cardiopulmonary Status: Stable Mental Status/LOC: patient returned to baseline Follow-up Care/Observations: 0 Post-Anesthesia Complications: 0 Follow-up care needed: N/A Jadon Tripp MD Jan 23, 2019 08:42
--- NOTE | 2019-01-23 08:54 | General Progress Note ---
Assessment/Plan Assessment/Plan: (1) Right axillary wound reconstruction status post excision of hidradenitis with flap reconstruction with a postoperative wound infection (2) S/p Debridement of right axillary wound and Placement of wound VAC. (3) Right Axilla pain Patient will be continued on DRILL FOREMAN Dilaudid, Dilaudid IV and Percocet D/w Dr. Long and he concurred. Subjective Date patient seen: Jan 23, 2019 Time patient seen: 08:15 - am Allergies: Coded Allergies: SILVER (Verified Allergy, Mild, 06/13/18) AZATHIOPRINE (Verified Allergy, Unknown, 05/15/18) DOCUSATE (Verified Allergy, Unknown, 05/15/18) ok for oral LATEX (Verified Allergy, Unknown, 05/15/18) VANCOMYCIN (Verified Allergy, Unknown, 05/15/18) BISACODYL (Verified Adverse Reaction, Severe, Rash, 05/15/18) Uncoded Allergies: IODINE CONTRAST (Allergy, Unknown, 05/15/18) TAPE (Allergy, Unknown, 05/15/18) Subjective Constitutional: Reports: no symptoms HEENT: Reports: no symptoms Cardiovascular: Reports: no symptoms Respiratory: Reports: cough Gastrointestinal/Abdominal: Reports: no symptoms Genitourinary: Reports: no symptoms Neurologic/Psychiatric: Reports: no symptoms Endocrine: Reports: no symptoms Hematologic/Lymphatic: Reports: no symptoms Subjective Patient is s/p surgery and wound vac placement. She was started on DRILL FOREMAN Dilaudid 0.2mg Q6min using 9.2mg in the last 24hrs as well as 3 doses of Percocet and 7 doses of Dilaudid for breakthrough pain in the last 24hrs. Pain is severe however patient reports it being tolerated on the medications. Objective Last 24 Hour Vital Signs Date Time Temp Pulse Resp B/P (MAP) Pulse Ox O2 Delivery O2 Flow Rate FiO2 01/23/19 08:44 75 20 97 Nasal Cannula 1.0 24 01/23/19 08:42 95 22 95 01/23/19 04:00 95 22 95 01/23/19 04:00 98.1 95 22 103/59 (74) 95 01/23/19 00:00 98.2 79 13 106/59 (75) 97 01/23/19 00:00 79 13 97 01/22/19 22:30 98.5 91 14 106/62 (77) 99 01/22/19 22:00 98.3 94 15 107/58 (74) 99 01/22/19 21:30 98.1 96 21 106/57 (73) 99 01/22/19 21:00 98.8 97 24 104/62 (76) 98 01/22/19 21:00 Room Air 01/22/19 20:30 98.2 99 26 106/56 (73) 98 01/22/19 20:15 98.9 91 21 106/61 (76) 100 01/22/19 20:10 78 21 99 Nasal Cannula 1.0 24 01/22/19 20:00 98.6 78 20 91/60 (70) 100 01/22/19 20:00 78 20 100 01/22/19 19:48 97.9 01/22/19 19:45 98.5 90 13 131/110 (117) 99 01/22/19 19:30 18 01/22/19 19:25 97.9 71 13 106/57 100 Nasal Cannula 3 01/22/19 19:18 13 01/22/19 19:10 72 17 101/59 100 Nasal Cannula 3 01/22/19 19:04 97.6 01/22/19 19:04 97.6 01/22/19 18:55 68 14 103/60 100 Nasal Cannula 3 01/22/19 18:45 81 14 107/65 100 Nasal Cannula 3 01/22/19 18:34 78 13 101/74 100 Simple Mask 6 01/22/19 18:32 86 22 99 01/22/19 18:30 96 16 113/67 100 Simple Mask 6 01/22/19 18:25 97.6 86 22 107/64 99 Simple Mask 6 01/22/19 16:19 98.8 69 18 107/70 (82) 97 01/22/19 15:29 98.7 01/22/19 14:35 98.7 01/22/19 12:00 98.7 68 19 104/60 (75) 97 01/22/19 11:50 98.7 68 17 104/60 (75) 97 01/22/19 09:00 Room Air Intake and Output 01/22/19 01/23/19 19:00 07:00 Intake Total 455 ml 2200 ml Output Total 20 ml 45 ml Balance 435 ml 2155 ml Intake Oral 2000 ml IV Total 455 ml 200 ml Output Drainage Total 45 ml Estimated Blood Loss 20 ml # Voids 2 Laboratory Tests 01/23/19 06:40: White Blood Count 9.6, Red Blood Count 3.78L, Hemoglobin 10.3L, Hematocrit 31.6L , Mean Corpuscular Volume 84, Mean Corpuscular Hemoglobin 27.2, Mean Corpuscular Hemoglobin Concent 32.5, Red Cell Distribution Width 13.6, Platelet Count 288, Mean Platelet Volume 5.6L, Neutrophils (%) (Auto) 52.6, Lymphocytes ( %) (Auto) 35.2, Monocytes (%) (Auto) 9.3, Eosinophils (%) (Auto) 2.0, Basophils (%) (Auto) 0.9, Sodium Level 140, Potassium Level 4.2, Chloride Level 107, Carbon Dioxide Level 29, Anion Gap 4L, Blood Urea Nitrogen 14, Creatinine 1.1, Estimat Glomerular Filtration Rate > 60, Glucose Level 123H, Calcium Level 7.8L , Total Bilirubin 0.2, Aspartate Amino Transf (AST/SGOT) 16, Alanine Aminotransferase (ALT/SGPT) 24, Alkaline Phosphatase 58, Total Protein 6.3L, Albumin 2.5L, Globulin 3.8, Albumin/Globulin Ratio 0.7L Height (Feet): 5 Height (Inches): 5.00 Weight (Pounds): 187 Objective General Appearance: no apparent distress, alert EENT: PERRL/EOMI, normal ENT inspection Neck: non-tender, normal alignment Respiratory/Chest: lungs clear, normal breath sounds Abdomen: normal bowel sounds, non tender Extremities: other - right axilla wound vac noted Edema: no edema noted Generalized Neurologic: alert, oriented x 3 Skin: normal pigmentation Hao Aldana Jan 23, 2019 08:54
[2019-01-23] MEDS: Cefepime 2gm in D5W 55ml IVPB SCH ×2 (09:02→21:17)
--- NOTE | 2019-01-23 09:29 | General Progress Note ---
Progress Note Progress Note Pt seen and examined. POD# 1 from debridement of axillary wound and wound vac placement. Doing well and wound vac working fine. Pt will require further inpatient care due to pain levels and woundcare needs as the wound vac placement is too complex for outpatient setting at this time. Sagar Campbell MD, MD Jan 23, 2019 09:29
--- NOTE | 2019-01-23 09:43 | General Progress Note ---
Assessment/Plan Problem List: (1) Hydradenitis ICD Codes: L73.2 - Hidradenitis suppurativa SNOMED: 60853261 (2) Wound cellulitis ICD Codes: L03.90 - Cellulitis, unspecified SNOMED: 702629115 (3) Wound dehiscence ICD Codes: T81.30XA - Disruption of wound, unspecified, initial encounter SNOMED: 315440162 (4) Abscess ICD Codes: L02.91 - Cutaneous abscess, unspecified SNOMED: 596541525 (5) Anxiety ICD Codes: F41.9 - Anxiety disorder, unspecified SNOMED: 28927933 (6) Depression ICD Codes: F32.9 - Major depressive disorder, single episode, unspecified SNOMED: 90936464 (7) Opioid use disorder, moderate, dependence ICD Codes: F11.20 - Opioid dependence, uncomplicated SNOMED: 68168931 Assessment/Plan: 23 year old female with hx of Hidradenitis suppurativa presents with right axillary wound dehiscence, purulent discharge and wound cellulitis after recent surgery and wound closure in December 2018 at which time hospital course also complicated by sepsis from Pneumonia. No evidence of sirs or sepsis currently, although BP is low normal, may be developing sirs/sepsis, also patient is on immunosuppressants. No leukocytosis, tachycardia or fever. now POD 1 s/p debridement of Right axillary wound and wound vac placement. #R axillary Hidradenitis suppurativa- wound dehiscence and cellulitis with purulent discharge POD 1 s/p debridement of axillary wound and wound vac placement. med/surg IV antibiotics- Cefepime (01/21-), and Daptomycin. d/w Dr. Diallo however will stop Daptomycin due to severe itching. Has allergies to Vancomycin and can' t be on Zyvox due to being on antidepressants. started Clindamycin (01/22-) Plastic surgery consult with Dr. Dr. Patty guthrie appreciated f/u OR cultures and sensitivities pain control- IV Benadryl 25mg q4hr for pleuritis. Pain management consult appreciated monitor vitals #Crohn's- stable. Remicade every 8 weeks. Due tomorrow. Will hold off due to infection- Used to see Dr. Ramirez, she wa splanning on seeing a new doctor in the same practice, Dr. Marielos Rapp [phone]. #Depression/Anxiety- stable. Continue home fluoxetine, and Aripiprazole. #vte ppx: Heparin #GI ppx: omeprazole Code status: full code I spent 40 minutes on this encounter. > 50% spent on counselling and care coordination. Case d/w Drs. Brambila and Imani. d/w patient Additional 35 minutes spent on prolonged services Subjective Date patient seen: Jan 23, 2019 ROS Limited/Unobtainable: No Constitutional: Reports: no symptoms, chills, diaphoresis, fever, malaise, weakness, other - 8/10 pain, left wrist itching HEENT: Denies: no symptoms, eye pain, blurred vision, tearing, double vision, ear pain, ear discharge, nose pain, nose congestion, throat pain, throat swelling, mouth pain, mouth swelling, other Cardiovascular: Denies: no symptoms, chest pain, edema, irregular heart rate, lightheadedness, palpitations, syncope, other Respiratory: Denies: no symptoms, cough, orthopnea, shortness of breath, SOB with excertion, SOB at rest, sputum, stridor, wheezing, other Gastrointestinal/Abdominal: Denies: no symptoms, abdomen distended, abdominal pain, black stools, tarry stools, blood in stool, constipated, diarrhea, difficulty swallowing, nausea, poor appetite, poor fluid intake, rectal bleeding , vomiting, other Genitourinary: Denies: no symptoms, burning, discharge, frequency, flank pain, hematuria, incontinence, pain, urgency, other Neurologic/Psychiatric: Denies: no symptoms, anxiety, depressed, emotional problems, headache, numbness, paresthesia, pre-existing deficit, seizure, tingling, tremors, weakness, other Endocrine: Denies: no symptoms, excessive sweating, flushing, intolerance to cold, intolerance to heat, increased hunger, increased thirst, increased urine, unexplained weight gain, unexplained weight loss, other Hematologic/Lymphatic: Denies: no symptoms, anemia, easy bleeding, easy bruising, other Allergies: Coded Allergies: SILVER (Verified Allergy, Mild, 06/13/18) AZATHIOPRINE (Verified Allergy, Unknown, 05/15/18) DOCUSATE (Verified Allergy, Unknown, 05/15/18) ok for oral LATEX (Verified Allergy, Unknown, 05/15/18) VANCOMYCIN (Verified Allergy, Unknown, 05/15/18) BISACODYL (Verified Adverse Reaction, Severe, Rash, 05/15/18) Uncoded Allergies: IODINE CONTRAST (Allergy, Unknown, 05/15/18) TAPE (Allergy, Unknown, 05/15/18) Subjective Seen and examined POD #1 s/p debridement of R axillary wound and wound vac placement. No acute overnight events. Has mild itching all over her body, wants more frequent Benadryl, has 8/10 pain, no fevers Objective Last 24 Hour Vital Signs Date Time Temp Pulse Resp B/P (MAP) Pulse Ox O2 Delivery O2 Flow Rate FiO2 01/23/19 08:44 75 20 97 Nasal Cannula 1.0 24 01/23/19 08:42 95 22 95 01/23/19 04:00 95 22 95 01/23/19 04:00 98.1 95 22 103/59 (74) 95 01/23/19 00:00 98.2 79 13 106/59 (75) 97 01/23/19 00:00 79 13 97 01/22/19 22:30 98.5 91 14 106/62 (77) 99 01/22/19 22:00 98.3 94 15 107/58 (74) 99 01/22/19 21:30 98.1 96 21 106/57 (73) 99 01/22/19 21:00 98.8 97 24 104/62 (76) 98 01/22/19 21:00 Room Air 01/22/19 20:30 98.2 99 26 106/56 (73) 98 01/22/19 20:15 98.9 91 21 106/61 (76) 100 01/22/19 20:10 78 21 99 Nasal Cannula 1.0 24 01/22/19 20:00 98.6 78 20 91/60 (70) 100 01/22/19 20:00 78 20 100 01/22/19 19:48 97.9 01/22/19 19:45 98.5 90 13 131/110 (117) 99 01/22/19 19:30 18 01/22/19 19:25 97.9 71 13 106/57 100 Nasal Cannula 3 01/22/19 19:18 13 01/22/19 19:10 72 17 101/59 100 Nasal Cannula 3 01/22/19 19:04 97.6 01/22/19 19:04 97.6 01/22/19 18:55 68 14 103/60 100 Nasal Cannula 3 01/22/19 18:45 81 14 107/65 100 Nasal Cannula 3 01/22/19 18:34 78 13 101/74 100 Simple Mask 6 01/22/19 18:32 86 22 99 01/22/19 18:30 96 16 113/67 100 Simple Mask 6 01/22/19 18:25 97.6 86 22 107/64 99 Simple Mask 6 01/22/19 16:19 98.8 69 18 107/70 (82) 97 01/22/19 15:29 98.7 01/22/19 14:35 98.7 01/22/19 12:00 98.7 68 19 104/60 (75) 97 01/22/19 11:50 98.7 68 17 104/60 (75) 97 Intake and Output 01/22/19 01/23/19 19:00 07:00 Intake Total 455 ml 2200 ml Output Total 20 ml 45 ml Balance 435 ml 2155 ml Intake Oral 2000 ml IV Total 455 ml 200 ml Output Drainage Total 45 ml Estimated Blood Loss 20 ml # Voids 2 Laboratory Tests 01/23/19 06:40: White Blood Count 9.6, Red Blood Count 3.78L, Hemoglobin 10.3L, Hematocrit 31.6L , Mean Corpuscular Volume 84, Mean Corpuscular Hemoglobin 27.2, Mean Corpuscular Hemoglobin Concent 32.5, Red Cell Distribution Width 13.6, Platelet Count 288, Mean Platelet Volume 5.6L, Neutrophils (%) (Auto) 52.6, Lymphocytes ( %) (Auto) 35.2, Monocytes (%) (Auto) 9.3, Eosinophils (%) (Auto) 2.0, Basophils (%) (Auto) 0.9, Sodium Level 140, Potassium Level 4.2, Chloride Level 107, Carbon Dioxide Level 29, Anion Gap 4L, Blood Urea Nitrogen 14, Creatinine 1.1, Estimat Glomerular Filtration Rate > 60, Glucose Level 123H, Calcium Level 7.8L , Total Bilirubin 0.2, Aspartate Amino Transf (AST/SGOT) 16, Alanine Aminotransferase (ALT/SGPT) 24, Alkaline Phosphatase 58, Total Protein 6.3L, Albumin 2.5L, Globulin 3.8, Albumin/Globulin Ratio 0.7L Height (Feet): 5 Height (Inches): 5.00 Weight (Pounds): 187 Objective General Appearance: Ni distress Head: normocephalic, atraumatic Eyes: bilateral eye PERRL, bilateral eye EOMI ENT: dry mucus membranes Neck: supple Respiratory: lungs cta bl, no rales or rhonchi Cardiovascular : regular rate, rhythm Gastrointestinal: non tender, soft, obese, +bs Musculoskeletal: normal inspection, no calf tenderness or edema Neurologic: alert, oriented x4, grossly normal Psychiatric: normal affect Skin: R axilla wound dressing c/d/i, wound vac in place draining serosanguineous fluid Isidro Johnson M.D. Jan 23, 2019 09:43
[2019-01-23] MEDS ORDERED: DiphenhydrAMINE 50mg/ml Inj IVP PRN (09:45)
[2019-01-23 12:00] VITALS: BP 113/79
--- NOTE | 2019-01-23 13:13 | NUR ---
*-* INSURANCE *-* ALL AVAILABLE CLINICALS HAVE BEEN FAXED TO: [facility] SHAWNM:VIOLETTE REF# [id number] FAX [phone] Work Work
--- NOTE | 2019-01-23 15:11 | NUR ---
CASE MANAGEMENT:REVIEW 23 YR OLD FEMALE PRESENTED TO ER CC: PUS DRAINING FROM SURGICAL SITE SI: WOUND DEHISCENCE. SEPSIS 98.5 77 17 104/71 99% ON RA GLUCOSE+120 IS: IV DILAUDID IV ZOFRAN IV CEFEPIME BLOOD CX : TO MED/SURG 3 EAST 01/22/19 SI: SEPSIS. WOUND DEHISCENCE 98.5 80 20 97/58 99% ON RA IS: TO SURGERY: DEBRIDEMENT OF RT AXILLARY WOUND PLACEMENT OF WOUND VAC : TO MED/SURG POST OP 01/23/19 SI: POD #1 97.9 105 18 113/79 97% ON RA H/H-10.3/31.6 CA-7.8 IS: CLOTH SHEARER DILAUDID IV CLINDAMYCIN Q8HRS IV CEFEPIME Q12 : MED/SURG STATUS 3 PLAN: WILL NEED WOUND VAC FOR HOME USE PLAN IS FOR SURGERY AGAIN ON MONDAY
--- NOTE | 2019-01-23 15:23 | CDS Physician Query ---
Clarification is required for compliance, coding accuracy, and to reflect severity of illness for this patient Dear Dr. Sagar Brambila Date: 01/23/2019 CDS name: Giselle Bermudez Because there is documentation in the medical record of "Debridement," clarification is needed. Please document whether this is "Excisional" or "Nonexcisional" Debridement" of the wound, infection or burn. Clinical Documentation states: Op note - The nonviable tissue was debrided using both sharp technique using a scalpel as well as electrocautery. Upon entering the wound bed, we encountered approximately 5 mL of turbid fluid, which was suctioned out and also cultures were sent from the fluid. We noted that the wound bed was healthy in terms of the granulation tissue Specific type of debridement performed: [] Excisional: Please document the depth of tissue [] Skin [] Subcutaneous tissue and Fascia [] Muscle [] Bone [] Nonexcisional: [] Skin [] Subcutaneous tissue and Fascia [] Muscle [] Bone Present on Admission: [] Yes [] No [] Clinically Undetermined Physician signature Date Please also document in your Progress Notes and/or Discharge Summary and indicate if the condition was present on admission. ARJUND
[2019-01-23 16:00] VITALS: BP 118/65
[2019-01-23] MEDS ORDERED: DiphenhydrAMINE 50mg/ml Inj IVP SCH (16:00)
--- NOTE | 2019-01-23 16:28 | NUR ---
HAND-OFF: Report given to Monroe FITZGERALD. Patient is stable.
--- NOTE | 2019-01-23 17:18 | General Progress Note ---
Progress Note Progress Note Patient seen and examined, c/o of generalized pruritus. denies any shortness of breath or lip or tongue swelling. On exam vitals are stable, her skin is mildly erythematous, no rashes notes, no throat swelling. lungs ct bl. Will increase her Benadryl to 50 6qhr, obtain an EKG to assess Qtc (since takes antidepressants as well), dosing d/w pharmacy. Will continue to monitor. cristopher finn and Dr. Brambila. Isidro Johnson M.D. Jan 23, 2019 17:18
[2019-01-23] MEDS: HydrOXYzine tab 25mg tab ORAL PRN (17:25)
[2019-01-23] MEDS ORDERED: PERCOCET 10-321 EACH ORAL (18:14)
[2019-01-23] MEDS ORDERED: BACTRIM DS TAB1 EAC1 ORAL (18:15)
[2019-01-23] MEDS ORDERED: CEPHALEXIN500 MG ORAL (18:16)
[2019-01-23] MEDS ORDERED: NYSTATIN15 G2 TP (18:16)
[2019-01-23] MEDS ORDERED: CATAPRES0.1 MG ORAL (18:17)
--- NOTE | 2019-01-23 19:30 | NUR ---
NURSE NOTES: Receive a report from LIA Childress. Round is done. Pt is awake and alert. No respiratory distress noted. On SUPERVISOR EPOXY FABRICATION pump dilaudid with prn pain medication. Wound Vac on right axilla with continuous mode and noted serosanguineous drainage on the line. Bedside comodo is next to bed. Call light within reach. Will continue to monitor.
--- NOTE | 2019-01-23 19:31 | NUR ---
HAND-OFF: Report given to Edmundo FITZGERALD, pt in stable condition. - wound vac during my shift: 15ml
[2019-01-23 20:00] VITALS: BP 97/56
--- NOTE | 2019-01-23 22:30 | NUR ---
NURSE NOTES: After getting Benadryl 50mg IVS, pt states that itching sense gets better. Ask to put on Benadryl cream and apply to ice bags for itching but pt refuses. Pt is aware of medication schedule. Will continue to monitor.
[2019-01-24] VITALS (7 sets, daily range): BP systolic 95–109; BP diastolic 31–69
[2019-01-24] MEDS: PCA HYDROmorphone 1mg/ml 30 ML IV PRN (00:18)
--- NOTE | 2019-01-24 00:18 | NUR ---
NURSE NOTES: HALF SECTION IRONER syringe, Dilaudid, got changed and discard about 7ml to HALF SECTION IRONER waste box with witness, CN.
[2019-01-24] MEDS: oxyCODONE HCL/Acetaminophen 5/325mg ORAL PRN (01:08)
[2019-01-24] MEDS: HYDROmorphone 1mg/ml Carpuject IVP PRN ×5 (02:36→21:43)
[2019-01-24] MEDS: DiphenhydrAMINE 50mg/ml Inj IVP PRN ×4 (03:54→23:04)
[2019-01-24] MEDS: Clindamycin 600mg 50 ML IV SCH (05:39)
[2019-01-24 05:58] LABS: BASOPHILS % (AUTO) 1.8 % (0.0-2.0); EOSINOPHILS % (AUTO) 1.7 % (0.0-3.0); HEMOGLOBIN 10.2 G/DL (12.0-16.0); LYMPHOCYTES % (AUTO) 35.4 % (20.0-45.0); MEAN CORPUSCULAR VOLUME 85 FL (80-99); MONOCYTES % (AUTO) 8.4 % (1.0-10.0); NEUTROPHILS % (AUTO) 52.6 % (45.0-75.0); PLATELET COUNT 303 K/UL (150-450); RED BLOOD COUNT 3.76 M/UL (4.20-5.40); RED CELL DISTRIBUTION WIDTH 13.7 % (11.6-14.8); WHITE BLOOD COUNT 8.4 K/UL (4.8-10.8)
[2019-01-24 06:34] LABS: ALANINE AMINOTRANSFERASE 27 U/L (12-78); ALBUMIN 2.6 G/DL (3.4-5.0); ALBUMIN/GLOBULIN RATIO 0.7 (1.0-2.7); ALKALINE PHOSPHATASE 56 U/L (46-116); ANION GAP 8 mmol/L (5-15); ASPARTATE AMINO TRANSFERASE 17 U/L (15-37); BILIRUBIN,TOTAL 0.2 MG/DL (0.2-1.0); BLOOD UREA NITROGEN 15 mg/dL (7-18); CARBON DIOXIDE 25 MMOL/L (21-32); CHLORIDE 107 MMOL/L (98-107); CREATININE 1.2 MG/DL (0.55-1.30); POTASSIUM 4.7 MMOL/L (3.5-5.1); SODIUM 140 MMOL/L (136-145)
[2019-01-24] MEDS: PCA shift volume MISC SCH (07:15)
--- NOTE | 2019-01-24 07:30 | NUR ---
HAND-OFF: Report given to LIA Eid. Round is done.
--- NOTE | 2019-01-24 07:55 | NUR ---
NURSE NOTES: received report from LIA Wyatt. patient alert. oriented. verbally responsive. drowsy. sleepy. no respiratory distress noted. C[employer] NON [employer] as ordered. IV on left 2nd finger 24g. intact. wound vac draining. out put 100cc for yesterday(6pm-6am). bed in the lowest position and locked. call light within reach. will continue to provide plan of care.
[2019-01-24] MEDS: ARIPiprazole 2mg tab ORAL SCH (09:01)
[2019-01-24] MEDS: Heparin 5000 units/ml inj SUBQ SCH ×2 (09:04→20:32)
[2019-01-24] MEDS: Cefepime 2gm in D5W 55ml IVPB SCH (09:16)
[2019-01-24] MEDS ORDERED: Naloxone 0.4mg/ml Inj IV PRN (09:41)
--- NOTE | 2019-01-24 09:48 | General Progress Note ---
Assessment/Plan Assessment/Plan: (1) Right axillary wound reconstruction status post excision of hidradenitis with flap reconstruction with a postoperative wound infection (2) S/p Debridement of right axillary wound and Placement of wound VAC. (3) Right Axilla pain Patient will be discontinued off the RETAIL ADVERTISING ACCOUNT EXECUTIVE Dilaudid and Percocet. Continued Dilaudid IV, start Oxycontin 20mg PO 1 tab Q8H atc hold for oversedation, [place] 10/325mg PO 1 tab Q4H PRN breakthrough pain and Neurontin 100mg PO 1 tab TID. We will add paramateres to hold the opioids for oversedation or lethargy or sbp<90 or dbp<60 or o2sat<92% and RR<12 D/w Dr. Long and he concurred. Subjective Date patient seen: Jan 24, 2019 Time patient seen: 08:30 - am Allergies: Coded Allergies: SILVER (Verified Allergy, Mild, 06/13/18) AZATHIOPRINE (Verified Allergy, Unknown, 05/15/18) DOCUSATE (Verified Allergy, Unknown, 05/15/18) ok for oral LATEX (Verified Allergy, Unknown, 05/15/18) VANCOMYCIN (Verified Allergy, Unknown, 05/15/18) BISACODYL (Verified Adverse Reaction, Severe, Rash, 05/15/18) Uncoded Allergies: IODINE CONTRAST (Allergy, Unknown, 05/15/18) TAPE (Allergy, Unknown, 05/15/18) Subjective Constitutional: Reports: no symptoms HEENT: Reports: no symptoms Cardiovascular: Reports: no symptoms Respiratory: Reports: cough Gastrointestinal/Abdominal: Reports: no symptoms Genitourinary: Reports: no symptoms Neurologic/Psychiatric: Reports: no symptoms Endocrine: Reports: no symptoms Hematologic/Lymphatic: Reports: no symptoms Subjective Patient is c/o severe pain having had minimal relief on the current medication regimen. Having used 16mg of the RETAIL ADVERTISING ACCOUNT EXECUTIVE Dilaudid, 6 doses of Dilaudid IV breakthrough and 2 doses of Percocet in the last 24hrs still c/o 10/10 pain. I d/w her about discontinuing the RETAIL ADVERTISING ACCOUNT EXECUTIVE Dilaudid and staring her on OxyContin as well as changing the Percocet to [place] with adding Neurontin 100mg TID in transitioning her of the RETAIL ADVERTISING ACCOUNT EXECUTIVE and preparing her for discharge. She seems to understand, d/w nurse. Objective Last 24 Hour Vital Signs Date Time Temp Pulse Resp B/P (MAP) Pulse Ox O2 Delivery O2 Flow Rate FiO2 01/24/19 08:00 98.1 78 14 97/62 (74) 98 01/24/19 04:00 90 16 98 01/24/19 04:00 98.1 90 16 101/65 (77) 98 01/24/19 00:18 83 18 95 01/24/19 00:00 98.6 83 18 102/56 (71) 95 01/24/19 00:00 83 18 95 01/23/19 21:00 Room Air 01/23/19 20:02 72 18 96 Room Air 21 01/23/19 20:00 90 18 97 01/23/19 20:00 98.9 90 18 97/56 (70) 97 01/23/19 19:07 98.1 01/23/19 16:00 98.1 98 18 118/65 (82) 97 01/23/19 16:00 98 18 97 01/23/19 12:00 97.9 105 18 113/79 (90) 97 01/23/19 12:00 105 18 97 Intake and Output 01/23/19 01/24/19 19:00 07:00 Intake Total 750 ml Output Total 25 ml Balance 725 ml Intake Oral 750 ml Output Drainage Total 25 ml # Voids 3 Laboratory Tests 01/24/19 05:20: White Blood Count 8.4, Red Blood Count 3.76L, Hemoglobin 10.2L, Hematocrit 32.0L , Mean Corpuscular Volume 85, Mean Corpuscular Hemoglobin 27.3, Mean Corpuscular Hemoglobin Concent 32.1, Red Cell Distribution Width 13.7, Platelet Count 303, Mean Platelet Volume 5.1L, Neutrophils (%) (Auto) 52.6, Lymphocytes ( %) (Auto) 35.4, Monocytes (%) (Auto) 8.4, Eosinophils (%) (Auto) 1.7, Basophils (%) (Auto) 1.8, Sodium Level 140, Potassium Level 4.7, Chloride Level 107, Carbon Dioxide Level 25, Anion Gap 8, Blood Urea Nitrogen 15, Creatinine 1.2, Estimat Glomerular Filtration Rate 55.2, Glucose Level 98, Calcium Level 8.0L, Total Bilirubin 0.2, Aspartate Amino Transf (AST/SGOT) 17, Alanine Aminotransferase (ALT/SGPT) 27, Alkaline Phosphatase 56, Total Protein 6.3L, Albumin 2.6L, Globulin 3.7, Albumin/Globulin Ratio 0.7L Height (Feet): 5 Height (Inches): 5.00 Weight (Pounds): 187 Objective General Appearance: no apparent distress, alert EENT: PERRL/EOMI, normal ENT inspection Neck: non-tender, normal alignment Respiratory/Chest: lungs clear, normal breath sounds Abdomen: normal bowel sounds, non tender Extremities: other - right axilla wound vac noted Edema: no edema noted Generalized Neurologic: alert, oriented x 3 Skin: normal pigmentation Hao Aldana Jan 24, 2019 09:48
--- NOTE | 2019-01-24 10:10 | General Progress Note ---
Assessment/Plan Problem List: (1) Hydradenitis ICD Codes: L73.2 - Hidradenitis suppurativa SNOMED: 40911067 (2) Wound cellulitis ICD Codes: L03.90 - Cellulitis, unspecified SNOMED: 075936241 (3) Wound dehiscence ICD Codes: T81.30XA - Disruption of wound, unspecified, initial encounter SNOMED: 244839061 (4) Abscess ICD Codes: L02.91 - Cutaneous abscess, unspecified SNOMED: 668942721 (5) Anxiety ICD Codes: F41.9 - Anxiety disorder, unspecified SNOMED: 14963094 (6) Depression ICD Codes: F32.9 - Major depressive disorder, single episode, unspecified SNOMED: 58923028 (7) Opioid use disorder, moderate, dependence ICD Codes: F11.20 - Opioid dependence, uncomplicated SNOMED: 53591595 Status: unchanged Assessment/Plan: 23 year old female with hx of Hidradenitis suppurativa presents with right axillary wound dehiscence, purulent discharge and wound cellulitis after recent surgery and wound closure in December 2018 at which time hospital course also complicated by sepsis from Pneumonia. No evidence of sirs or sepsis currently, although BP is low normal, may be developing sirs/sepsis, also patient is on immunosuppressants. No leukocytosis, tachycardia or fever. now POD 2 s/p debridement of Right axillary wound and wound vac placement. #R axillary Hidradenitis suppurativa- wound dehiscence and cellulitis with purulent discharge POD 2 s/p debridement of axillary wound and wound vac placement. #Generalized pruritus, facial flushing, suspect adverse reaction to Clindamycin med/surg IV antibiotics- Cefepime (01/21-), and Daptomycin. d/w Dr. Diallo however will stop Daptomycin due to severe itching. Has allergies to Vancomycin and can' t be on Zyvox due to being on antidepressants. started Clindamycin (01/22-01/24) stop Clindamycin, start Doxycycline 100 mg IV Q12 hr (01/24-) Plastic surgery consult with Dr. Dr. Patty guthrie appreciated f/u OR cultures and sensitivities pain control- IV Benadryl 50mg q6hr for pleuritis Topical Benadryl prn Pain management consult appreciated monitor vitals PICC placement due to poor IV access and need prolonged IV antibiotics #Crohn's- stable. Remicade every 8 weeks. Due tomorrow. Will hold off due to infection- Used to see Dr. Ramirez, she wa splanning on seeing a new doctor in the same practice, Dr. Marielos Rapp [phone]. #Depression/Anxiety- stable. Continue home fluoxetine, and Aripiprazole. #vte ppx: Heparin #GI ppx: omeprazole Code status: full code I spent 40 minutes on this encounter. > 50% spent on counselling and care coordination. Case d/w Drs. Brambila and Imani. d/w patient Additional 35 minutes spent on prolonged services Subjective Date patient seen: Jan 24, 2019 ROS Limited/Unobtainable: No Constitutional: Reports: other - generalized pruritis, facial flushing HEENT: Denies: no symptoms, eye pain, blurred vision, tearing, double vision, ear pain, ear discharge, nose pain, nose congestion, throat pain, throat swelling, mouth pain, mouth swelling, other Cardiovascular: Denies: no symptoms, chest pain, edema, irregular heart rate, lightheadedness, palpitations, syncope, other Respiratory: Denies: no symptoms, cough, orthopnea, shortness of breath, SOB with excertion, SOB at rest, sputum, stridor, wheezing, other Gastrointestinal/Abdominal: Denies: no symptoms, abdomen distended, abdominal pain, black stools, tarry stools, blood in stool, constipated, diarrhea, difficulty swallowing, nausea, poor appetite, poor fluid intake, rectal bleeding , vomiting, other Genitourinary: Denies: no symptoms, burning, discharge, frequency, flank pain, hematuria, incontinence, pain, urgency, other Neurologic/Psychiatric: Denies: no symptoms, anxiety, depressed, emotional problems, headache, numbness, paresthesia, pre-existing deficit, seizure, tingling, tremors, weakness, other Endocrine: Denies: no symptoms, excessive sweating, flushing, intolerance to cold, intolerance to heat, increased hunger, increased thirst, increased urine, unexplained weight gain, unexplained weight loss, other Hematologic/Lymphatic: Denies: no symptoms, anemia, easy bleeding, easy bruising, other Allergies: Coded Allergies: SILVER (Verified Allergy, Mild, 06/13/18) AZATHIOPRINE (Verified Allergy, Unknown, 05/15/18) DOCUSATE (Verified Allergy, Unknown, 05/15/18) ok for oral LATEX (Verified Allergy, Unknown, 05/15/18) VANCOMYCIN (Verified Allergy, Unknown, 05/15/18) BISACODYL (Verified Adverse Reaction, Severe, Rash, 05/15/18) Uncoded Allergies: IODINE CONTRAST (Allergy, Unknown, 05/15/18) TAPE (Allergy, Unknown, 05/15/18) Subjective Seen and examined POD #2 s/p debridement of R axillary wound and wound vac placement. 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 Denies sob or lip swelling. Poor IV access, access. Objective Last 24 Hour Vital Signs Date Time Temp Pulse Resp B/P (MAP) Pulse Ox O2 Delivery O2 Flow Rate FiO2 01/24/19 09:00 Room Air 01/24/19 08:00 98.1 78 14 97/62 (74) 98 01/24/19 08:00 78 14 98 01/24/19 04:00 90 16 98 01/24/19 04:00 98.1 90 16 101/65 (77) 98 01/24/19 00:18 83 18 95 01/24/19 00:00 98.6 83 18 102/56 (71) 95 01/24/19 00:00 83 18 95 01/23/19 21:00 Room Air 01/23/19 20:02 72 18 96 Room Air 21 01/23/19 20:00 90 18 97 01/23/19 20:00 98.9 90 18 97/56 (70) 97 01/23/19 19:07 98.1 01/23/19 16:00 98.1 98 18 118/65 (82) 97 01/23/19 16:00 98 18 97 01/23/19 12:00 97.9 105 18 113/79 (90) 97 01/23/19 12:00 105 18 97 Intake and Output 01/23/19 01/24/19 19:00 07:00 Intake Total 750 ml Output Total 25 ml Balance 725 ml Intake Oral 750 ml Output Drainage Total 25 ml # Voids 3 Laboratory Tests 01/24/19 05:20: White Blood Count 8.4, Red Blood Count 3.76L, Hemoglobin 10.2L, Hematocrit 32.0L , Mean Corpuscular Volume 85, Mean Corpuscular Hemoglobin 27.3, Mean Corpuscular Hemoglobin Concent 32.1, Red Cell Distribution Width 13.7, Platelet Count 303, Mean Platelet Volume 5.1L, Neutrophils (%) (Auto) 52.6, Lymphocytes ( %) (Auto) 35.4, Monocytes (%) (Auto) 8.4, Eosinophils (%) (Auto) 1.7, Basophils (%) (Auto) 1.8, Sodium Level 140, Potassium Level 4.7, Chloride Level 107, Carbon Dioxide Level 25, Anion Gap 8, Blood Urea Nitrogen 15, Creatinine 1.2, Estimat Glomerular Filtration Rate 55.2, Glucose Level 98, Calcium Level 8.0L, Total Bilirubin 0.2, Aspartate Amino Transf (AST/SGOT) 17, Alanine Aminotransferase (ALT/SGPT) 27, Alkaline Phosphatase 56, Total Protein 6.3L, Albumin 2.6L, Globulin 3.7, Albumin/Globulin Ratio 0.7L Height (Feet): 5 Height (Inches): 5.00 Weight (Pounds): 187 Objective General Appearance: Ni distress Head: normocephalic, atraumatic Eyes: bilateral eye PERRL, bilateral eye EOMI ENT: dry mucus membranes Neck: supple Respiratory: lungs cta bl, no rales or rhonchi Cardiovascular : regular rate, rhythm Gastrointestinal: non tender, soft, obese, +bs Musculoskeletal: normal inspection, no calf tenderness or edema Neurologic: alert, oriented x4, grossly normal Psychiatric: normal affect Skin: R axilla wound dressing c/d/i, wound vac in place draining serosanguineous fluid Isidro Johnson M.D. Jan 24, 2019 10:10
[2019-01-24] MEDS ORDERED: Heparin1,000 units/500ml Premix(Conc:2 units/ml) IV SCH (10:15)
[2019-01-24] MEDS ORDERED: Lidocaine 1% Plain 30 ml INJ SCH (10:15)
--- NOTE | 2019-01-24 10:20 | NUR ---
RD ASSESSMENT & RECOMMENDATIONS SEE CARE ACTIVITY FOR COMPLETE ASSESSMENT DAILY ESTIMATED NEEDS: Needs based on Wound, surgery, obese; 64.8kg adj 25-30 kcals/kg 5004-9805 total kcals 1.25-2 g protein/kg 81-130 g total protein 25-30 mL/kg 0166-2151 total fluid mLs NUTRITION DIAGNOSIS: *Increased protein and micronutrients needs R/T wound healing as evidenced by h/o hidradenitis, s/p debridement and wound vac placement. CURRENT DIET: Regular PO DIET RECOMMENDATIONS: Regular ADDITIONAL RECOMMENDATIONS: 1) Obtain a standing weight as able 2) Wound care: add MVI x1 + Vit C 250mg QD : Robert BID added to tray
[2019-01-24] MEDS: oxyCONTIN 20mg tab ORAL SCH ×3 (10:24→22:29)
[2019-01-24] MEDS ORDERED: Lidocaine 1% Plain 30 ml INJ PRN (10:30)
[2019-01-24] MEDS ORDERED: Heparin1,000 units/500ml Premix(Conc:2 units/ml) IV PRN (10:30)
[2019-01-24] MEDS ORDERED: Miralax 17gm pkt ORAL PRN (10:45)
[2019-01-24] MEDS: DiphenhydrAMINE & Zinc 28g Cream TOPIC PRN (12:42)
--- NOTE | 2019-01-24 14:51 | Infectious Diseases Prog Note ---
Assessment/Plan Assessment/Plan ASSESSMENT AND PLAN: 1. right axilla wound infection, cellulitis, ? abscess, hidradenitis suppurativa - s/p debridement on 01/24/19 - admission wound culture with group c streptococcus - change abx to ceftriaxone plus doxycycline and flagyl - cannot tolerate clindamycin or daptomycin secondary to severe itching - monitor labs - f/u on surgical aerobic and anaerobic cultures - d/w Dr. Johnson 2. Crohn's disease. I believe she is also on Remicade per the patient. History of colectomy. 3. Depression. 4. Anxiety. 5. Hidradenitis suppurativa status post multiple surgeries. 6. Allergies to azathioprine, bisacodyl, docusate, iodine contrast, latex, silver tape, vancomycin, and possible daptomycin with itching. 7. Social history is negative for smoking, alcohol, or drug abuse. 8. Family history is noncontributory. 9. MAR is noted. 10. Case was discussed with RN. 11. Case was discussed with Dr. Johnson. 12. Case was discussed with the patient. 13. Continue treatment per primary consultants. Subjective Constitutional: Denies: fever HEENT: Denies: congestion Respiratory: Denies: shortness of breath Cardiovascular: Denies: chest pain Gastrointestinal/Abdominal: Denies: nausea, vomiting, diarrhea Genitourinary: Reports: other - no santana Neurologic: Denies: headache Psychiatric: Denies: depression Skin: Reports: other - + itching with clindamycin; Denies: rash Hematologic: Denies: bleeding Musculoskeletal: Reports: pain - controlled Allergies: Coded Allergies: SILVER (Verified Allergy, Mild, 06/13/18) AZATHIOPRINE (Verified Allergy, Unknown, 05/15/18) DOCUSATE (Verified Allergy, Unknown, 05/15/18) ok for oral LATEX (Verified Allergy, Unknown, 05/15/18) VANCOMYCIN (Verified Allergy, Unknown, 05/15/18) BISACODYL (Verified Adverse Reaction, Severe, Rash, 05/15/18) Uncoded Allergies: IODINE CONTRAST (Allergy, Unknown, 05/15/18) TAPE (Allergy, Unknown, 05/15/18) Objective Vital Signs Last 24 Hour Vital Signs Date Time Temp Pulse Resp B/P (MAP) Pulse Ox O2 Delivery O2 Flow Rate FiO2 01/24/19 13:10 85 16 95 Room Air 21 01/24/19 12:00 98.2 77 15 95/53 (67) 98 01/24/19 09:00 Room Air 01/24/19 08:00 98.1 78 14 97/62 (74) 98 01/24/19 08:00 78 14 98 01/24/19 04:00 90 16 98 01/24/19 04:00 98.1 90 16 101/65 (77) 98 01/24/19 00:18 83 18 95 01/24/19 00:00 98.6 83 18 102/56 (71) 95 01/24/19 00:00 83 18 95 01/23/19 21:00 Room Air 01/23/19 20:02 72 18 96 Room Air 21 01/23/19 20:00 90 18 97 01/23/19 20:00 98.9 90 18 97/56 (70) 97 01/23/19 19:07 98.1 01/23/19 16:00 98.1 98 18 118/65 (82) 97 01/23/19 16:00 98 18 97 Height (Feet): 5 Height (Inches): 5.00 Weight (Pounds): 187 General Appearance: no acute distress HEENT: normocephalic, atraumatic, anicteric Respiratory/Chest: lungs clear, normal breath sounds, no respiratory distress, no accessory muscle use Cardiovascular: normal rate, regular rhythm, no gallop/murmur, no JVD Abdomen: normal bowel sounds, soft, non tender, no organomegaly, non distended Genitourinary: other - no santana, no cva pain Extremities: no cyanosis Skin: no rash Neurologic/Psychiatric: negotiator II-XII grossly normal, alert, oriented x 3, responsive Lymphatic: no neck adenopathy Musculoskeletal: no effusion Objective none Microbiology Date/Time Source Procedure Growth Status 01/21/19 15:55 Blood Blood Culture - Preliminary NO GROWTH AFTER 48 HOURS Resulted 01/21/19 15:40 Blood Blood Culture - Preliminary NO GROWTH AFTER 48 HOURS Resulted 01/21/19 17:00 Nasal Nares MRSA Culture - Final NO METHICILLIN RESISTANT STAPH AUREUS... Complete 01/22/19 19:30 Axilla Right Gram Stain - Final Resulted 01/22/19 19:30 Axilla Right Aerobic Culture Pending Resulted 01/22/19 19:30 Axilla Right Anaerobic Culture Pending Resulted 01/21/19 17:00 Rectum VRE Culture - Final NO VANCOMYCIN RESISTANT ENTEROCOCCUS ... Complete 01/21/19 17:00 Rectum - Final NO CARBAPENEM-RESISTANT ENTEROBACTERI... Complete 01/21/19 17:00 Axilla Right Gram Stain - Final Complete 01/21/19 17:00 Wound Culture - Final Streptococcus Group C Usual Skin Radha Complete Laboratory Tests Test 01/24/19 05:20 White Blood Count 8.4 K/UL (4.8-10.8) Red Blood Count 3.76 M/UL (4.20-5.40) L Hemoglobin 10.2 G/DL (12.0-16.0) L Hematocrit 32.0 % (37.0-47.0) L Mean Corpuscular Volume 85 FL (80-99) Mean Corpuscular Hemoglobin 27.3 PG (27.0-31.0) Mean Corpuscular Hemoglobin Concent 32.1 G/DL (32.0-36.0) Red Cell Distribution Width 13.7 % (11.6-14.8) Platelet Count 303 K/UL (150-450) Mean Platelet Volume 5.1 FL (6.5-10.1) L Neutrophils (%) (Auto) 52.6 % (45.0-75.0) Lymphocytes (%) (Auto) 35.4 % (20.0-45.0) Monocytes (%) (Auto) 8.4 % (1.0-10.0) Eosinophils (%) (Auto) 1.7 % (0.0-3.0) Basophils (%) (Auto) 1.8 % (0.0-2.0) Sodium Level 140 MMOL/L (136-145) Potassium Level 4.7 MMOL/L (3.5-5.1) Chloride Level 107 MMOL/L (98-107) Carbon Dioxide Level 25 MMOL/L (21-32) Anion Gap 8 mmol/L (5-15) Blood Urea Nitrogen 15 mg/dL (7-18) Creatinine 1.2 MG/DL (0.55-1.30) Estimat Glomerular Filtration Rate 55.2 mL/min (>60) Glucose Level 98 MG/DL (74-106) Calcium Level 8.0 MG/DL (8.5-10.1) L Total Bilirubin 0.2 MG/DL (0.2-1.0) Aspartate Amino Transf (AST/SGOT) 17 U/L (15-37) Alanine Aminotransferase (ALT/SGPT) 27 U/L (12-78) Alkaline Phosphatase 56 U/L (46-116) Total Protein 6.3 G/DL (6.4-8.2) L Albumin 2.6 G/DL (3.4-5.0) L Globulin 3.7 g/dL Albumin/Globulin Ratio 0.7 (1.0-2.7) L Current Medications Medications (Trade) Dose Ordered Sig/Alix Route PRN Reason Start Time Stop Time Status Last Admin Dose Admin Acetaminophen/ Hydrocodone Bitart ([place] 10) 1 tab Q4H PRN ORAL Breakthrough Pain 01/24/19 09:45 01/31/19 09:44 Aripiprazole (Abilify) 2 mg DAILY ORAL 01/22/19 09:00 02/21/19 08:59 01/24/19 09:01 Ceftriaxone Sodium 1 gm/ Dextrose 50 ml @ 100 mls/hr Q24H IVPB 01/24/19 17:00 01/31/19 16:59 Chlorhexidine Gluconate ([place]-Hex 2%) 1 applic DAILY@2000 TOPIC 01/24/19 20:00 02/23/19 19:59 Diphenhydramine HCl (Benadryl Cream) 1 applic TIDPRN PRN TOPIC Itching 01/23/19 17:15 02/22/19 17:14 01/24/19 12:42 Diphenhydramine HCl (Benadryl) 50 mg Q6H PRN IVP Itching 01/23/19 18:30 02/08/19 18:29 01/24/19 09:59 Doxycycline Hyclate 100 mg/ Dextrose 110 ml @ 110 mls/hr Q12HR IV 01/24/19 21:00 01/31/19 20:59 Fluoxetine HCl (PROzac) 40 mg DAILY ORAL 01/22/19 09:00 02/21/19 08:59 01/24/19 09:02 Gabapentin (Neurontin) 100 mg THREE TIMES A DAY ORAL 01/24/19 09:45 02/23/19 09:44 01/24/19 14:05 Heparin Sodium (Porcine) (Heparin 5000 units/ml) 5,000 units EVERY 12 HOURS SUBQ 01/22/19 21:00 02/21/19 20:59 01/24/19 09:04 Heparin Sodium/ Sodium Chloride (Heparin 1000 units/500ml Premix) 1,000 unit ONCE PRN IV PICC LINE 01/24/19 10:30 01/26/19 10:29 Hydromorphone HCl (Dilaudid) 1 mg Q3H PRN IVP For Pain 01/21/19 18:30 01/28/19 18:29 01/24/19 14:06 Hydroxyzine HCl (Atarax) 25 mg Q6H PRN ORAL Itching 01/21/19 23:30 02/20/19 23:29 01/23/19 17:25 Lidocaine HCl (Xylocaine 1% 30ml) 30 ml ONCE PRN INJ PICC LINE 01/24/19 10:30 01/26/19 10:14 Metronidazole (Flagyl) 500 mg EVERY 8 HOURS ORAL 01/24/19 22:00 01/31/19 21:59 Ondansetron HCl (Zofran) 4 mg Q6H PRN IVP Nausea & Vomiting 01/22/19 18:45 02/21/19 18:44 01/23/19 21:30 Oxycodone HCl (OxyCONTIN) 20 mg Q8HR ORAL 01/24/19 09:45 01/31/19 09:44 01/24/19 10:24 Polyethylene Glycol (Miralax) 17 gm DAILY PRN ORAL Constipation 01/24/19 10:45 02/23/19 10:44 Niya Holley MD Jan 24, 2019 14:51
--- NOTE | 2019-01-24 15:00 | NUR ---
NURSE NOTES: spoke to radiology regarding PICC line placement. due to radiology availability the patient will get the procedure on tomorrow machine assembler for puller over. Patient is aware.
--- NOTE | 2019-01-24 15:55 | NUR ---
CASE MANAGEMENT:REVIEW 01/24/19 SI: POD #3 S/P DEBRIDEMENT OF RT AXILLARY WOUND WOUND VAC PLACEMENT 98.2 77 15 95/53 98% ON RA H/H-10.2/32.0 IS: IV DOXYCYCLINE Q12 IV ROCEPHIN Q24 FLAGYL PO Q8HRS OXYCONTIN PO Q8HRS NEURONTIN PO TID IV DILAUDID Q3HRS PRN : [facility]
[2019-01-24] MEDS: cefTRIAXone 1 GM in D5W 50 ML IVPB SCH ×2 (17:00→17:12)
--- NOTE | 2019-01-24 17:26 | NUR ---
NURSE NOTES: DC IV access d/t c/o pain and infiltrated. Patient has PICC placement tomorrow morning. patient refused to get another IV insertion at this time and wants to wait to get picc line and resume all IV medications.
[2019-01-24] MEDS: HYDROcodone/Acetamin 10/325 tab ORAL PRN (17:36)
--- NOTE | 2019-01-24 17:45 | NUR ---
NURSE NOTES: RN called [facility]. no one answered at this time. no operation available at this time.
--- NOTE | 2019-01-24 18:08 | NUR ---
NURSE NOTES: RN called Dr. Johnson's office. left message to the concrete grinder operator. lace mender called back. ok to hold IV ATB medication until patient get PICC line tomorrow. order noted and carried out.
[2019-01-24] MEDS ORDERED: NS 500ML ONE (18:15)
[2019-01-24] MEDS ORDERED: Tubing IV Secondary IV ONE (18:15)
--- NOTE | 2019-01-24 19:30 | NUR ---
NURSE NOTES: Received report from LIA Francois and rounds made with outgoing nurse. Pt in bed, AOx4, pain level 7/10, no distress noted. No IV access. Will insert new IV. Surgical dressing c/d/i. Bed in lowest position and locked, side rails up x 2, call light within reach. Will continue to monitor.
--- NOTE | 2019-01-24 19:36 | NUR ---
HAND-OFF: Report given to LIA Mendieta&LIA Rodrigez.
[2019-01-24] MEDS: Dyna-Hex 2% Top Sol 2oz TOPIC SCH (20:00)
[2019-01-24] MEDS: Doxycycline Hyclate 100 MG in D5W 110 ML IV SCH (21:50)
[2019-01-24] MEDS: metroNIDAZOLE 500mg tab ORAL SCH (22:10)
[2019-01-25] VITALS (7 sets, daily range): BP systolic 96–119; BP diastolic 56–73
[2019-01-25] MEDS: HYDROcodone/Acetamin 10/325 tab ORAL PRN ×3 (00:20→17:59)
[2019-01-25] MEDS: HYDROmorphone 1mg/ml Carpuject IVP PRN ×3 (04:06→21:12)
[2019-01-25] MEDS: DiphenhydrAMINE 50mg/ml Inj IVP PRN ×3 (05:09→18:58)
--- NOTE | 2019-01-25 05:15 | NUR ---
NURSE NOTES: IV left wrist infiltrated. IV removed applied 4x4 gauze and paper tape. Will continue to monitor.
[2019-01-25] MEDS: metroNIDAZOLE 500mg tab ORAL SCH ×3 (06:11→21:11)
[2019-01-25] MEDS: oxyCONTIN 20mg tab ORAL SCH ×3 (06:12→22:58)
[2019-01-25] MEDS ORDERED: Lidocaine 1% Plain 30 ml INJ ONE (07:00)
[2019-01-25] MEDS ORDERED: Heparin1,000 units/500ml Premix(Conc:2 units/ml) ONE (07:00)
--- NOTE | 2019-01-25 07:29 | NUR ---
HAND-OFF: Report given to LIA De La Cruz. Pt in stable condition.
--- NOTE | 2019-01-25 07:54 | NUR ---
NURSE NOTES: Patient alert and oriented,respirations unlabored.Wound vac to the right axillary intact with setting as ordered.Patient breakfast at bed side.Patient schedule for Picc line placement this Am.Call light within reach.
[2019-01-25] MEDS: Heparin 5000 units/ml inj SUBQ SCH ×2 (09:00→21:14)
--- NOTE | 2019-01-25 09:09 | General Progress Note ---
Assessment/Plan Assessment/Plan: (1) Right axillary wound reconstruction status post excision of hidradenitis with flap reconstruction with a postoperative wound infection (2) S/p Debridement of right axillary wound and Placement of wound VAC. (3) Right Axilla pain Patient will be continued on Dilaudid, Oxycontin, Eden and Neurontin Dilaudid may be given subQ until IV acces is obtained. D/w Dr. Long and he concurred. Subjective Date patient seen: Jan 25, 2019 Time patient seen: 08:30 - am Allergies: Coded Allergies: SILVER (Verified Allergy, Mild, 06/13/18) AZATHIOPRINE (Verified Allergy, Unknown, 05/15/18) DOCUSATE (Verified Allergy, Unknown, 05/15/18) ok for oral LATEX (Verified Allergy, Unknown, 05/15/18) VANCOMYCIN (Verified Allergy, Unknown, 05/15/18) BISACODYL (Verified Adverse Reaction, Severe, Rash, 05/15/18) Uncoded Allergies: IODINE CONTRAST (Allergy, Unknown, 05/15/18) TAPE (Allergy, Unknown, 05/15/18) Subjective Constitutional: Reports: no symptoms HEENT: Reports: no symptoms Cardiovascular: Reports: no symptoms Respiratory: Reports: cough Gastrointestinal/Abdominal: Reports: no symptoms Genitourinary: Reports: no symptoms Neurologic/Psychiatric: Reports: no symptoms Endocrine: Reports: no symptoms Hematologic/Lymphatic: Reports: no symptoms Subjective Patient reports that her pain has been greatly reduced with the new regimen now a 07/30, having 3 Oxycontin, 2 Eden and 4 Dilaudid in the last 24hrs. Now having issues with obtaining IV access. Patient as per surgeon and clearing supervisor is scheduled for surgery on Monday baring any complications. Objective Last 24 Hour Vital Signs Date Time Temp Pulse Resp B/P (MAP) Pulse Ox O2 Delivery O2 Flow Rate FiO2 01/25/19 04:00 98.8 95 17 112/69 (83) 98 01/25/19 00:00 98.7 82 18 109/67 (81) 99 01/24/19 20:00 98.8 74 17 108/69 (82) 99 01/24/19 19:58 72 18 99 Room Air 21 01/24/19 19:16 Room Air 01/24/19 16:00 99.2 88 14 109/31 (57) 95 01/24/19 13:10 85 16 95 Room Air 21 01/24/19 12:00 98.2 77 15 95/53 (67) 98 Intake and Output 01/24/19 01/25/19 19:00 07:00 Intake Total 1490 ml Output Total 700 ml Balance 790 ml Intake Oral 1380 ml IV Total 110 ml Output Urine Total 700 ml # Bowel Movements 1 Height (Feet): 5 Height (Inches): 5.00 Weight (Pounds): 187 Objective General Appearance: no apparent distress, alert EENT: PERRL/EOMI, normal ENT inspection Neck: non-tender, normal alignment Respiratory/Chest: lungs clear, normal breath sounds Abdomen: normal bowel sounds, non tender Extremities: other - right axilla wound vac noted Edema: no edema noted Generalized Neurologic: alert, oriented x 3 Skin: normal pigmentation Hao Aldana Jan 25, 2019 09:09
[2019-01-25] MEDS: ARIPiprazole 2mg tab ORAL SCH (09:24)
--- NOTE | 2019-01-25 09:29 | General Progress Note ---
Assessment/Plan Problem List: (1) Hydradenitis ICD Codes: L73.2 - Hidradenitis suppurativa SNOMED: 64042906 (2) Wound cellulitis ICD Codes: L03.90 - Cellulitis, unspecified SNOMED: 627627792 (3) Wound dehiscence ICD Codes: T81.30XA - Disruption of wound, unspecified, initial encounter SNOMED: 266554561 (4) Abscess ICD Codes: L02.91 - Cutaneous abscess, unspecified SNOMED: 972813774 (5) Anxiety ICD Codes: F41.9 - Anxiety disorder, unspecified SNOMED: 65187694 (6) Depression ICD Codes: F32.9 - Major depressive disorder, single episode, unspecified SNOMED: 59936140 (7) Opioid use disorder, moderate, dependence ICD Codes: F11.20 - Opioid dependence, uncomplicated SNOMED: 32624432 Status: stable Assessment/Plan: 23 year old female with hx of Hidradenitis suppurativa presents with right axillary wound dehiscence, purulent discharge and wound cellulitis after recent surgery and wound closure in December 2018 at which time hospital course also complicated by sepsis from Pneumonia. No evidence of sirs or sepsis currently, although BP is low normal, may be developing sirs/sepsis, also patient is on immunosuppressants. No leukocytosis, tachycardia or fever. now POD 3 s/p debridement of Right axillary wound and wound vac placement. #R axillary Hidradenitis suppurativa- wound dehiscence and cellulitis with purulent discharge POD 3 s/p debridement of axillary wound and wound vac placement. #Generalized pruritus, facial flushing, suspect adverse reaction to Clindamycin #right axillary pain med/surg IV antibiotics- Cefepime (01/21-), and Daptomycin. d/w Dr. Diallo however will stop Daptomycin due to severe itching. Has allergies to Vancomycin and can' t be on Zyvox due to being on antidepressants. started Clindamycin (01/22-01/24) stop Clindamycin, start Doxycycline 100 mg IV Q12 hr (01/24-) Plastic surgery consult with Dr. Dr. Patty guthrie appreciated f/u OR cultures and sensitivities pain control- IV Benadryl 50mg q6hr for pleuritis Topical Benadryl prn Pain management consult appreciated monitor vitals PICC placement due to poor IV access and need prolonged IV antibiotics #Crohn's- stable. Remicade every 8 weeks. Due tomorrow. Will hold off due to infection- Used to see Dr. Ramirez, she wa splanning on seeing a new doctor in the same practice, Dr. Marielos Rapp [phone]. #Depression/Anxiety- stable. Continue home fluoxetine, and Aripiprazole. #vte ppx: Heparin #GI ppx: omeprazole Code status: full code I spent 40 minutes on this encounter. > 50% spent on counselling and care coordination. Case d/w Drs. Brambila and Imani. d/w patient Additional 35 minutes spent on prolonged services Subjective Date patient seen: Jan 25, 2019 ROS Limited/Unobtainable: No Constitutional: Reports: weakness, other - pain, R axilla 07/30 HEENT: Denies: no symptoms, eye pain, blurred vision, tearing, double vision, ear pain, ear discharge, nose pain, nose congestion, throat pain, throat swelling, mouth pain, mouth swelling, other Cardiovascular: Denies: no symptoms, chest pain, edema, irregular heart rate, lightheadedness, palpitations, syncope, other Respiratory: Denies: no symptoms, cough, orthopnea, shortness of breath, SOB with excertion, SOB at rest, sputum, stridor, wheezing, other Gastrointestinal/Abdominal: Denies: no symptoms, abdomen distended, abdominal pain, black stools, tarry stools, blood in stool, constipated, diarrhea, difficulty swallowing, nausea, poor appetite, poor fluid intake, rectal bleeding , vomiting, other Genitourinary: Denies: no symptoms, burning, discharge, frequency, flank pain, hematuria, incontinence, pain, urgency, other Neurologic/Psychiatric: Denies: no symptoms, anxiety, depressed, emotional problems, headache, numbness, paresthesia, pre-existing deficit, seizure, tingling, tremors, weakness, other Endocrine: Denies: no symptoms, excessive sweating, flushing, intolerance to cold, intolerance to heat, increased hunger, increased thirst, increased urine, unexplained weight gain, unexplained weight loss, other Hematologic/Lymphatic: Denies: no symptoms, anemia, easy bleeding, easy bruising, other Allergies: Coded Allergies: SILVER (Verified Allergy, Mild, 06/13/18) AZATHIOPRINE (Verified Allergy, Unknown, 05/15/18) DOCUSATE (Verified Allergy, Unknown, 05/15/18) ok for oral LATEX (Verified Allergy, Unknown, 05/15/18) VANCOMYCIN (Verified Allergy, Unknown, 05/15/18) BISACODYL (Verified Adverse Reaction, Severe, Rash, 05/15/18) Uncoded Allergies: IODINE CONTRAST (Allergy, Unknown, 05/15/18) TAPE (Allergy, Unknown, 05/15/18) Subjective Seen and examined POD #3 s/p debridement of R axillary wound and wound vac placement. Pain better. Poor IV access and lost what she had overnight. For PICC today Objective Last 24 Hour Vital Signs Date Time Temp Pulse Resp B/P (MAP) Pulse Ox O2 Delivery O2 Flow Rate FiO2 01/25/19 09:23 94 103/65 (78) 01/25/19 08:00 98.0 77 18 96/56 (69) 97 01/25/19 04:00 98.8 95 17 112/69 (83) 98 01/25/19 00:00 98.7 82 18 109/67 (81) 99 01/24/19 20:00 98.8 74 17 108/69 (82) 99 01/24/19 19:58 72 18 99 Room Air 21 01/24/19 19:16 Room Air 01/24/19 16:00 99.2 88 14 109/31 (57) 95 01/24/19 13:10 85 16 95 Room Air 21 01/24/19 12:00 98.2 77 15 95/53 (67) 98 Intake and Output 01/24/19 01/25/19 19:00 07:00 Intake Total 1490 ml Output Total 700 ml Balance 790 ml Intake Oral 1380 ml IV Total 110 ml Output Urine Total 700 ml # Bowel Movements 1 Height (Feet): 5 Height (Inches): 5.00 Weight (Pounds): 187 Objective General Appearance: Ni distress Head: normocephalic, atraumatic Eyes: bilateral eye PERRL, bilateral eye EOMI ENT: dry mucus membranes Neck: supple Respiratory: lungs cta bl, no rales or rhonchi Cardiovascular : regular rate, rhythm Gastrointestinal: non tender, soft, obese, +bs Musculoskeletal: normal inspection, no calf tenderness or edema Neurologic: alert, oriented x4, grossly normal Psychiatric: normal affect Skin: R axilla wound dressing c/d/i, wound vac in place draining serosanguineous fluid Isidro Johnson M.D. Jan 25, 2019 09:29
[2019-01-25] MEDS: DiphenhydrAMINE & Zinc 28g Cream TOPIC PRN (10:59)
--- NOTE | 2019-01-25 11:44 | Pre-Procedure Note/Attestation ---
Pre-Procedure Note/Attestation Complete Prior to Procedure Planned Procedure: left Procedure Narrative: PICC Indications for Procedure Pre-Operative Diagnosis: needs intermediate project manager IV access Attestation I attest that I discussed the nature of the procedure; its benefits; risks and complications; and alternatives (and the risks and benefits of such alternatives ), prior to the procedure, with the patient (or the patient's legal b2b outside sales representative). I attest that, if there was a reasonable possibility of needing a blood transfusion, the patient (or the patient's legal b2b outside sales representative) was given the [facility] standardized written summary, pursuant to the Isahn Eli Blood Safety Act ([place] Health and Safety Code # 1645, as amended). I attest that I re-evaluated the patient just prior to the surgery and that there has been no change in the patient's H&P, except as documented below: Gigi Tripp MD Jan 25, 2019 11:44
--- NOTE | 2019-01-25 11:45 | Brief Operative Note ---
Immediate Post Operative Note Operative Note Pre-op Diagnosis: needs adjunct faculty for medical terminology IV access Procedure: PICC L basilic Post-op Diagnosis: same as pre-op Surgeon: Мария Virgen Anesthesia: local Specimen: none Complications: none Fluids: none Implant(s) used?: No Gigi Virgen MD Jan 25, 2019 11:45
[2019-01-25] MEDS: Doxycycline Hyclate 100 MG in D5W 110 ML IV SCH ×2 (12:52→21:15)
--- NOTE | 2019-01-25 13:43 | Diagnostic Imaging Report ---
Indications: Needs long-term IV access Technique: Ultrasound confirms patent compressible left basilic vein. Total sterile technique, including sterile probe cover and sterile gel, hat, mask, sterile gown, large sterile drape, and preparation with 2% chlorhexidine utilized. Local anesthesia with 1% lidocaine. Under real-time ultrasound guidance, puncture left basilic vein using 21-gauge needle, documented and archived, passage 0.018 guidewire under direct fluoroscopy, which was used to determine appropriate catheter length, exchange for 4 Belgian peel-away sheath. 4 Belgian Bard dual-lumen power PICC cut to 43 cm. It was inserted through the peel-away sheath. Peel-away sheath and guidewire removed. Catheter fixed to the skin. Both catheter ports aspirated and flushed. Patient tolerated procedure well, without immediate complication. Digital radiograph documents satisfactory catheter tip position, at the cavoatrial junction. Total fluoroscopy time 20.2 seconds. Total dose area product [id number] mGym2 Total number of images: 1 Impression: Successful placement of left arm PICC under sonographic and fluoroscopic guidance, as described above.
--- NOTE | 2019-01-25 13:48 | Cardiology Report ---
APPROVED REPORT EKG Measurement Heart [id number] Normal sinus rhythm with sinus arrhythmia Normal ECG
--- NOTE | 2019-01-25 13:55 | NUR ---
CASE MANAGEMENT:REVIEW 01/25/19 SI: POD #4 S/P DEBRIDEMENT OF RT AXILLARY WOUND(+) STREP GROUP C) WOUND VAC PLACEMENT 98.0 77 18 96/56 97% ON RA IS: IV DOXYCYCLINE Q12 IV ROCEPHIN Q24 FLAGYL PO Q8HRS OXYCONTIN PO Q8HRS NEURONTIN PO TID IV DILAUDID Q3HRS PRN : MED/SURG STATUS 3 EAST
--- NOTE | 2019-01-25 15:59 | Diagnostic Imaging Report ---
Indication: Cough Technique: One view of the chest Comparison: 01/07/2019 Findings: Lungs and pleural spaces are clear. Heart size is normal. No significant interim change Impression: No acute process
[2019-01-25] MEDS: cefTRIAXone 1 GM in D5W 50 ML IVPB SCH (17:00)
--- NOTE | 2019-01-25 19:10 | NUR ---
NURSE NOTE.Patient c/o itching,requesting Benadryl,med given as ordered Wound vac remains in place. Call light within reach.
--- NOTE | 2019-01-25 19:40 | NUR ---
HAND-OFF: Report given to Janina FITZGERALD.
--- NOTE | 2019-01-25 19:40 | NUR ---
NURSE NOTES: Pt received in bed awake, alert and able to make needs known, call light within reach, no c/o pain, wound vac in place connected to RT axillary, will encourage pt to walk, Dr Freedman saw her and states pt going to OR on Monday, will continue to monitor.
[2019-01-25] MEDS: Dyna-Hex 2% Top Sol 2oz TOPIC SCH (21:11)
[2019-01-26] VITALS (8 sets, daily range): BP systolic 91–125; BP diastolic 45–81
[2019-01-26] MEDS: HYDROmorphone 1mg/ml Carpuject IVP PRN ×7 (00:12→23:20)
[2019-01-26] MEDS: DiphenhydrAMINE 50mg/ml Inj IVP PRN ×4 (01:03→20:28)
[2019-01-26] MEDS: HYDROcodone/Acetamin 10/325 tab ORAL PRN ×2 (01:44→11:38)
[2019-01-26] MEDS: metroNIDAZOLE 500mg tab ORAL SCH ×3 (05:26→22:13)
[2019-01-26] MEDS: oxyCONTIN 20mg tab ORAL SCH ×3 (05:27→22:14)
[2019-01-26 06:14] LABS: BASOPHILS % (AUTO) 0.7 % (0.0-2.0); EOSINOPHILS % (AUTO) 3.5 % (0.0-3.0); HEMATOCRIT 32.7 % (37.0-47.0); HEMOGLOBIN 10.7 G/DL (12.0-16.0); LYMPHOCYTES % (AUTO) 27.2 % (20.0-45.0); MEAN CORPUSCULAR VOLUME 83 FL (80-99); MONOCYTES % (AUTO) 8.8 % (1.0-10.0); NEUTROPHILS % (AUTO) 59.7 % (45.0-75.0); PLATELET COUNT 270 K/UL (150-450); RED BLOOD COUNT 3.93 M/UL (4.20-5.40); RED CELL DISTRIBUTION WIDTH 13.3 % (11.6-14.8); WHITE BLOOD COUNT 10.1 K/UL (4.8-10.8)
[2019-01-26 06:29] LABS: ALANINE AMINOTRANSFERASE 23 U/L (12-78); ALBUMIN 2.7 G/DL (3.4-5.0); ALBUMIN/GLOBULIN RATIO 0.6 (1.0-2.7); ALKALINE PHOSPHATASE 63 U/L (46-116); ANION GAP 8 mmol/L (5-15); ASPARTATE AMINO TRANSFERASE 15 U/L (15-37); BILIRUBIN,TOTAL 0.2 MG/DL (0.2-1.0); BLOOD UREA NITROGEN 14 mg/dL (7-18); CALCIUM 8.7 MG/DL (8.5-10.1); CARBON DIOXIDE 26 MMOL/L (21-32); CHLORIDE 105 MMOL/L (98-107); CREATININE 0.8 MG/DL (0.55-1.30); POTASSIUM 3.6 MMOL/L (3.5-5.1); SODIUM 139 MMOL/L (136-145)
--- NOTE | 2019-01-26 07:35 | NUR ---
NURSE NOTES: Received report from LIA Roa. Patient in bed, A&Ox4, on room air. No signs of distress or labored breathing. PICC line dry, intact, and saline locked. Wound vac connected to right axilla, running continuos at 150 mm Hg. Bed in lowest position with call light in reach. Will continue with plan of care.
--- NOTE | 2019-01-26 07:44 | NUR ---
HAND-OFF: Report given to LIA Garcia.
[2019-01-26] MEDS: Doxycycline Hyclate 100 MG in D5W 110 ML IV SCH ×2 (08:59→20:28)
[2019-01-26] MEDS: ARIPiprazole 2mg tab ORAL SCH (09:00)
[2019-01-26] MEDS: Heparin 5000 units/ml inj SUBQ SCH ×2 (09:04→20:29)
--- NOTE | 2019-01-26 13:56 | General Progress Note ---
Assessment/Plan Status: stable Assessment/Plan: 23 year old female with hx of Hidradenitis suppurativa admitted with right axillary wound dehiscence, purulent discharge and wound cellulitis after recent surgery and wound closure in December 2018 at which time hospital course also complicated by sepsis from Pneumonia. #R axillary Hidradenitis suppurativa- wound dehiscence and cellulitis with purulent discharge s/p debridement of axillary wound and wound vac placement. #Generalized pruritus, facial flushing, suspect adverse reaction to Clindamycin #right axillary intractable pain -continue IV antibiotics, ceftriaxone and doxy via PICC -Plastic surgery consult with Dr.Tahernia guthrie appreciated -Pain control as per pain management team -Topical Benadryl prn #Crohn's Disease -Remicade on hold in the setting of active infection, follow up with GI as outpatient #Depression/Anxiety- stable. Continue home fluoxetine, and Aripiprazole. #vte ppx: Heparin #GI ppx: omeprazole Code status: full code I spent 35 minutes on this encounter. > 50% spent on counselling and care coordination I spent an additional 35 minutes on review of medical records including prior outside hospital records, consult notes, progress notes, procedures, imaging, labs, hemodynamics, and other clinical documentation. Subjective Date patient seen: Jan 26, 2019 Time patient seen: 12:10 ROS Limited/Unobtainable: No Constitutional: Denies: chills, fever Cardiovascular: Denies: chest pain Respiratory: Denies: cough Gastrointestinal/Abdominal: Denies: abdominal pain Neurologic/Psychiatric: Denies: anxiety Endocrine: Denies: excessive sweating, flushing Allergies: Coded Allergies: SILVER (Verified Allergy, Mild, 06/13/18) AZATHIOPRINE (Verified Allergy, Unknown, 05/15/18) DOCUSATE (Verified Allergy, Unknown, 05/15/18) ok for oral LATEX (Verified Allergy, Unknown, 05/15/18) VANCOMYCIN (Verified Allergy, Unknown, 05/15/18) BISACODYL (Verified Adverse Reaction, Severe, Rash, 05/15/18) Uncoded Allergies: IODINE CONTRAST (Allergy, Unknown, 05/15/18) TAPE (Allergy, Unknown, 05/15/18) Subjective Follow up for medical management Feels well today, pain is controlled with current regimen. Tolerating IV doxy and ceftriaxone without rash. Plan for OR on Monday Objective Last 24 Hour Vital Signs Date Time Temp Pulse Resp B/P (MAP) Pulse Ox O2 Delivery O2 Flow Rate FiO2 01/26/19 12:00 97.1 99 21 99/64 (76) 99 01/26/19 09:00 Room Air 01/26/19 08:07 98.8 102 18 98/65 (76) 100 01/26/19 06:00 105/67 (80) 01/26/19 04:00 98.8 108 19 91/45 (60) 95 01/26/19 00:00 99.0 109 20 117/77 (90) 97 01/25/19 21:00 Room Air 01/25/19 20:00 98.7 96 19 119/63 (81) 96 01/25/19 16:00 99.0 93 18 115/73 (87) 98 Intake and Output 01/25/19 01/26/19 19:00 07:00 Intake Total 800 ml 1460 ml Output Total 25 ml 25 ml Balance 775 ml 1435 ml Intake Oral 800 ml 1350 ml IV Total 110 ml Drainage Total 25 ml 25 ml # Voids 5 # Bowel Movements 2 Laboratory Tests 01/26/19 05:35: White Blood Count 10.1, Red Blood Count 3.93L, Hemoglobin 10.7L, Hematocrit 32.7L, Mean Corpuscular Volume 83, Mean Corpuscular Hemoglobin 27.2, Mean Corpuscular Hemoglobin Concent 32.6, Red Cell Distribution Width 13.3, Platelet Count 270, Mean Platelet Volume 5.5L, Neutrophils (%) (Auto) 59.7, Lymphocytes ( %) (Auto) 27.2, Monocytes (%) (Auto) 8.8, Eosinophils (%) (Auto) 3.5H, Basophils (%) (Auto) 0.7, Sodium Level 139, Potassium Level 3.6, Chloride Level 105, Carbon Dioxide Level 26, Anion Gap 8, Blood Urea Nitrogen 14, Creatinine 0.8, Estimat Glomerular Filtration Rate > 60, Glucose Level 110H, Calcium Level 8.7, Total Bilirubin 0.2, Aspartate Amino Transf (AST/SGOT) 15, Alanine Aminotransferase (ALT/SGPT) 23, Alkaline Phosphatase 63, Total Protein 7.0, Albumin 2.7L, Globulin 4.3, Albumin/Globulin Ratio 0.6L Height (Feet): 5 Height (Inches): 5.00 Weight (Pounds): 187 General Appearance: no apparent distress, alert Neck: normal alignment, supple Cardiovascular: normal rate, regular rhythm Respiratory/Chest: lungs clear, normal breath sounds Abdomen: non tender, soft Markie Ortega MD Jan 26, 2019 13:56
--- NOTE | 2019-01-26 15:42 | NUR ---
NURSE NOTES: RN informed patient that PICC line dressing needs to be change per protocol 24 hours after placement. Patient states she would like dressing change to be at night after she gets Benadryl (which is Q8HR, next dose around 2100) because she is allergic to PICC line dressing. Charge nurse aware.
--- NOTE | 2019-01-26 16:23 | NUR ---
CASE MANAGEMENT:REVIEW SI: POD #5 S/P DEBRIDEMENT OF RT AXILLARY WOUND(+) STREP GROUP C) WOUND VAC PLACEMENT T 97.1 HR 108 RR 19 BP 91/45 SAT 95% ROOM AIR H/H 10.7/32.7 GLUCOSE 110 IS: IV DOXYCYCLINE Q12 IV ROCEPHIN Q24 FLAGYL PO Q8HRS OXYCONTIN PO Q8HRS NEURONTIN PO TID IV DILAUDID Q3HRS PRN : MED/SURG STATUS 3 [facility]
--- NOTE | 2019-01-26 16:41 | Infectious Diseases Prog Note ---
Assessment/Plan Assessment/Plan ASSESSMENT AND PLAN: 1. right axilla wound infection, cellulitis, ? abscess, hidradenitis suppurativa - s/p debridement on 01/22/19 - admission wound culture with group c streptococcus - ceftriaxone plus doxycycline and flagyl - day # 4 post-op - cannot tolerate clindamycin or daptomycin secondary to severe itching - monitor labs - f/u on surgical aerobic and anaerobic cultures 2. Crohn's disease. I believe she is also on Remicade per the patient. History of colectomy. 3. Depression. 4. Anxiety. 5. Hidradenitis suppurativa status post multiple surgeries. 6. Allergies to azathioprine, bisacodyl, docusate, iodine contrast, latex, silver tape, vancomycin, and possible daptomycin with itching. 7. Social history is negative for smoking, alcohol, or drug abuse. 8. Family history is noncontributory. 9. MAR is noted. 10. Case was discussed with RN. 11. Case was discussed with Dr. Johnson. 12. Case was discussed with the patient. 13. Continue treatment per primary consultants. Subjective Constitutional: Reports: fatigue; Denies: fever HEENT: Denies: congestion Respiratory: Denies: shortness of breath Cardiovascular: Denies: chest pain Gastrointestinal/Abdominal: Denies: nausea, vomiting, diarrhea Genitourinary: Reports: other - no santana Neurologic: Denies: headache Psychiatric: Denies: depression Skin: Denies: rash Hematologic: Denies: bleeding Musculoskeletal: Denies: pain Allergies: Coded Allergies: SILVER (Verified Allergy, Mild, 06/13/18) AZATHIOPRINE (Verified Allergy, Unknown, 05/15/18) DOCUSATE (Verified Allergy, Unknown, 05/15/18) ok for oral LATEX (Verified Allergy, Unknown, 05/15/18) VANCOMYCIN (Verified Allergy, Unknown, 05/15/18) BISACODYL (Verified Adverse Reaction, Severe, Rash, 05/15/18) Uncoded Allergies: IODINE CONTRAST (Allergy, Unknown, 05/15/18) TAPE (Allergy, Unknown, 05/15/18) Objective Vital Signs Last 24 Hour Vital Signs Date Time Temp Pulse Resp B/P (MAP) Pulse Ox O2 Delivery O2 Flow Rate FiO2 01/26/19 15:54 98.2 104 21 108/73 (85) 96 01/26/19 12:00 97.1 99 21 99/64 (76) 99 01/26/19 09:00 Room Air 01/26/19 08:07 98.8 102 18 98/65 (76) 100 01/26/19 06:00 105/67 (80) 01/26/19 04:00 98.8 108 19 91/45 (60) 95 01/26/19 00:00 99.0 109 20 117/77 (90) 97 01/25/19 21:00 Room Air 01/25/19 20:00 98.7 96 19 119/63 (81) 96 Height (Feet): 5 Height (Inches): 5.00 Weight (Pounds): 187 General Appearance: no acute distress HEENT: normocephalic, atraumatic, anicteric, mucous membranes moist Respiratory/Chest: lungs clear, normal breath sounds, no respiratory distress, no accessory muscle use Cardiovascular: normal rate, regular rhythm, no gallop/murmur, no JVD Abdomen: normal bowel sounds, soft, non tender, no organomegaly, non distended Genitourinary: other - no santana Extremities: no cyanosis Skin: no rash 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 Complete 01/22/19 19:30 Axilla Right Gram Stain - Final Resulted 01/22/19 19:30 Axilla Right Aerobic Culture - Preliminary NO GROWTH AFTER 24 HOURS Resulted 01/22/19 19:30 Axilla Right Anaerobic Culture - Preliminary NO GROWTH AFTER 48 HOURS Resulted Laboratory Tests Test 01/26/19 05:35 White Blood Count 10.1 K/UL (4.8-10.8) Red Blood Count 3.93 M/UL (4.20-5.40) L Hemoglobin 10.7 G/DL (12.0-16.0) L Hematocrit 32.7 % (37.0-47.0) L Mean Corpuscular Volume 83 FL (80-99) Mean Corpuscular Hemoglobin 27.2 PG (27.0-31.0) Mean Corpuscular Hemoglobin Concent 32.6 G/DL (32.0-36.0) Red Cell Distribution Width 13.3 % (11.6-14.8) Platelet Count 270 K/UL (150-450) Mean Platelet Volume 5.5 FL (6.5-10.1) L Neutrophils (%) (Auto) 59.7 % (45.0-75.0) Lymphocytes (%) (Auto) 27.2 % (20.0-45.0) Monocytes (%) (Auto) 8.8 % (1.0-10.0) Eosinophils (%) (Auto) 3.5 % (0.0-3.0) H Basophils (%) (Auto) 0.7 % (0.0-2.0) Sodium Level 139 MMOL/L (136-145) Potassium Level 3.6 MMOL/L (3.5-5.1) Chloride Level 105 MMOL/L (98-107) Carbon Dioxide Level 26 MMOL/L (21-32) Anion Gap 8 mmol/L (5-15) Blood Urea Nitrogen 14 mg/dL (7-18) Creatinine 0.8 MG/DL (0.55-1.30) Estimat Glomerular Filtration Rate > 60 mL/min (>60) Glucose Level 110 MG/DL (74-106) H Calcium Level 8.7 MG/DL (8.5-10.1) Total Bilirubin 0.2 MG/DL (0.2-1.0) Aspartate Amino Transf (AST/SGOT) 15 U/L (15-37) Alanine Aminotransferase (ALT/SGPT) 23 U/L (12-78) Alkaline Phosphatase 63 U/L (46-116) Total Protein 7.0 G/DL (6.4-8.2) Albumin 2.7 G/DL (3.4-5.0) L Globulin 4.3 g/dL Albumin/Globulin Ratio 0.6 (1.0-2.7) L Current Medications Medications (Trade) Dose Ordered Sig/Alix Route PRN Reason Start Time Stop Time Status Last Admin Dose Admin Acetaminophen/ Hydrocodone Bitart ([place] 10325) 1 tab Q4H PRN ORAL Breakthrough Pain 01/24/19 09:45 01/31/19 09:44 01/26/19 11:38 Aripiprazole (Abilify) 2 mg DAILY ORAL 01/22/19 09:00 02/21/19 08:59 01/26/19 09:00 Ceftriaxone Sodium 1 gm/ Dextrose 50 ml @ 100 mls/hr Q24H IVPB 01/24/19 17:00 01/31/19 16:59 01/25/19 17:00 Chlorhexidine Gluconate ([place]-Hex 2%) 1 applic DAILY@2000 TOPIC 01/24/19 20:00 02/23/19 19:59 01/25/19 21:11 Diphenhydramine HCl (Benadryl Cream) 1 applic TIDPRN PRN TOPIC Itching 01/23/19 17:15 02/22/19 17:14 01/25/19 10:59 Diphenhydramine HCl (Benadryl) 50 mg Q6H PRN IVP Itching 01/23/19 18:30 02/08/19 18:29 01/26/19 13:08 Doxycycline Hyclate 100 mg/ Dextrose 110 ml @ 110 mls/hr Q12HR IV 01/24/19 21:00 01/31/19 20:59 01/26/19 08:59 Fluoxetine HCl (PROzac) 40 mg DAILY ORAL 01/22/19 09:00 02/21/19 08:59 01/26/19 09:00 Gabapentin (Neurontin) 100 mg THREE TIMES A DAY ORAL 01/24/19 09:45 02/23/19 09:44 01/26/19 13:08 Heparin Sodium (Porcine) (Heparin 5000 units/ml) 5,000 units EVERY 12 HOURS SUBQ 01/22/19 21:00 02/21/19 20:59 01/26/19 09:04 Hydromorphone HCl (Dilaudid) 1 mg Q3H PRN IVP For Pain 01/25/19 09:30 01/28/19 18:29 01/26/19 15:15 Hydroxyzine HCl (Atarax) 25 mg Q6H PRN ORAL Itching 01/21/19 23:30 02/20/19 23:29 01/23/19 17:25 Metronidazole (Flagyl) 500 mg EVERY 8 HOURS ORAL 01/24/19 22:00 01/31/19 21:59 01/26/19 14:45 Ondansetron HCl (Zofran) 4 mg Q6H PRN IVP Nausea & Vomiting 01/22/19 18:45 02/21/19 18:44 01/26/19 07:06 Oxycodone HCl (OxyCONTIN) 20 mg Q8HR ORAL 01/24/19 09:45 01/31/19 09:44 01/26/19 14:10 Polyethylene Glycol (Miralax) 17 gm DAILY PRN ORAL Constipation 01/24/19 10:45 02/23/19 10:44 Niya Holley MD Jan 26, 2019 16:41
[2019-01-26] MEDS: cefTRIAXone 1 GM in D5W 50 ML IVPB SCH (17:52)
--- NOTE | 2019-01-26 19:18 | NUR ---
HAND-OFF: Report given to LIA Siddiqui.
--- NOTE | 2019-01-26 19:55 | NUR ---
NURSES NOTE: Met pt in bed, A/OX4, communicative, able to express needs. No s/s of distress noted. Breathing pattern is even and unlabored. Wound vac connected at 150mmgh continuos to R axilla. Pt states pain in R axilla 08/29. Pain medications will be given accordingly. Picc line PAWAN saline locked. No s/s of infection noted. Bed at lowest level. Call light within reach. Pt will continue to be monitored.
[2019-01-26] MEDS: Dyna-Hex 2% Top Sol 2oz TOPIC SCH (20:29)
[2019-01-27] VITALS: BP 117/69
--- NOTE | 2019-01-27 00:17 | NUR ---
NURSES NOTE: Pt states she prefers that PICC line dressing not be changed tonight. Received Benadryl at 2100 however pt still refuses.
[2019-01-27] MEDS: HYDROcodone/Acetamin 10/325 tab ORAL PRN (00:43)
[2019-01-27] MEDS: DiphenhydrAMINE 50mg/ml Inj IVP PRN ×4 (02:38→21:49)
[2019-01-27 04:00] VITALS: BP_SYST 120; BP_SYST 131; BP_DIAS 71; BP_DIAS 74
[2019-01-27] MEDS: metroNIDAZOLE 500mg tab ORAL SCH ×3 (05:46→21:49)
[2019-01-27] MEDS: oxyCONTIN 20mg tab ORAL SCH ×3 (05:46→22:24)
[2019-01-27] MEDS: HYDROmorphone 1mg/ml Carpuject IVP PRN ×3 (06:49→19:04)
--- NOTE | 2019-01-27 07:40 | NUR ---
Hand off: Report given to aakash Childress. Pt left in stable condition.
[2019-01-27 08:00] VITALS: BP 129/74
--- NOTE | 2019-01-27 08:00 | NUR ---
NURSE NOTES: Received report from Vivi FITZGERALD, pt a/a/o x4 laying in bed with no signs of distress or other issues at this time. wound vac in place in the right axilla with settings 150mmg high continues suction. over night out put was 10ml. pt is able to ambulate to the bathroom with steady gait. PICC line on the left upper arm placed 12/8. call light within reach. bed in lowest position side rales up. I will f/u as needed.
--- NOTE | 2019-01-27 08:36 | NUR ---
*-* INSURANCE *-* ALL AVAILABLE CLINICALS HAVE BEEN FAXED TO: [facility] MARY:VIOLETTE REF# [id number] FAX [phone] Work Fax
[2019-01-27] MEDS: Heparin 5000 units/ml inj SUBQ SCH ×2 (08:47→21:26)
[2019-01-27] MEDS: ARIPiprazole 2mg tab ORAL SCH (08:48)
[2019-01-27] MEDS: Doxycycline Hyclate 100 MG in D5W 110 ML IV SCH ×2 (08:50→21:19)
[2019-01-27 12:00] VITALS: BP 124/71
--- NOTE | 2019-01-27 12:47 | General Progress Note ---
Assessment/Plan Assessment/Plan: (1) Right axillary wound reconstruction status post excision of hidradenitis with flap reconstruction with a postoperative wound infection (2) S/p Debridement of right axillary wound and Placement of wound VAC. (3) Right Axilla pain Patient will be continued on Dilaudid, Oxycontin, [place] and Neurontin D/w Dr. Long and he concurred. Subjective Date patient seen: Jan 27, 2019 Time patient seen: 12:15 - pm Allergies: Coded Allergies: SILVER (Verified Allergy, Mild, 06/13/18) AZATHIOPRINE (Verified Allergy, Unknown, 05/15/18) DOCUSATE (Verified Allergy, Unknown, 05/15/18) ok for oral LATEX (Verified Allergy, Unknown, 05/15/18) VANCOMYCIN (Verified Allergy, Unknown, 05/15/18) BISACODYL (Verified Adverse Reaction, Severe, Rash, 05/15/18) Uncoded Allergies: IODINE CONTRAST (Allergy, Unknown, 05/15/18) TAPE (Allergy, Unknown, 05/15/18) Subjective Constitutional: Reports: no symptoms HEENT: Reports: no symptoms Cardiovascular: Reports: no symptoms Respiratory: Reports: cough Gastrointestinal/Abdominal: Reports: no symptoms Genitourinary: Reports: no symptoms Neurologic/Psychiatric: Reports: no symptoms Endocrine: Reports: no symptoms Hematologic/Lymphatic: Reports: no symptoms Subjective Patient is doing well pain has been tolerated on the medications. She has gotten the Oxycontin as scheduled, 6 Dilaudid and 3 [place]. Scheduled for OR tomorrow barring no complications as per surgeon. Objective Last 24 Hour Vital Signs Date Time Temp Pulse Resp B/P (MAP) Pulse Ox O2 Delivery O2 Flow Rate FiO2 01/27/19 09:00 Room Air 01/27/19 08:00 98.3 96 18 129/74 (92) 95 01/27/19 07:19 98.3 01/27/19 04:00 97.6 86 19 131/71 (91) 98 01/27/19 00:00 97.6 102 18 117/69 (85) 96 01/26/19 21:00 Room Air 01/26/19 20:00 98.9 98 20 125/81 (96) 96 01/26/19 15:54 98.2 104 21 108/73 (85) 96 Intake and Output 01/26/19 01/27/19 19:00 07:00 Intake Total 590 ml 1070 ml Output Total 10 ml 10 ml Balance 580 ml 1060 ml Intake Oral 480 ml 960 ml IV Total 110 ml 110 ml Drainage Total 10 ml 10 ml # Voids 1 # Bowel Movements 1 Height (Feet): 5 Height (Inches): 5.00 Weight (Pounds): 187 Objective General Appearance: no apparent distress, alert EENT: PERRL/EOMI, normal ENT inspection Neck: non-tender, normal alignment Respiratory/Chest: lungs clear, normal breath sounds Abdomen: normal bowel sounds, non tender Extremities: other - right axilla wound vac noted Edema: no edema noted Generalized Neurologic: alert, oriented x 3 Skin: normal pigmentation Hao Aldana Jan 27, 2019 12:47
--- NOTE | 2019-01-27 13:42 | General Progress Note ---
Assessment/Plan Assessment/Plan: 23 year old female with hx of Hidradenitis suppurativa admitted with right axillary wound dehiscence, purulent discharge and wound cellulitis after recent surgery and wound closure in December 2018 at which time hospital course also complicated by sepsis from Pneumonia. #R axillary Hidradenitis suppurativa- wound dehiscence and cellulitis with purulent discharge s/p debridement of axillary wound and wound vac placement. #Generalized pruritus, facial flushing, suspect adverse reaction to Clindamycin #right axillary intractable pain -continue IV antibiotics per ID -Plastic surgery consult with Dr.Tahernia guthrie appreciated, plan for OR tomorrow. NPO after MN. -Pain control as per pain management team -Topical Benadryl prn #Crohn's Disease -Remicade on hold in the setting of active infection, follow up with GI as outpatient #Depression/Anxiety- stable. Continue home fluoxetine, and Aripiprazole. #vte ppx: Heparin #GI ppx: omeprazole Code status: full code I spent 35 minutes on this encounter. > 50% spent on counselling and care coordination I spent an additional 35 minutes on review of medical records including prior outside hospital records, consult notes, progress notes, procedures, imaging, labs, hemodynamics, and other clinical documentation. Subjective Date patient seen: Jan 27, 2019 Time patient seen: 12:22 ROS Limited/Unobtainable: No Constitutional: Denies: chills Cardiovascular: Denies: chest pain Respiratory: Denies: cough Gastrointestinal/Abdominal: Denies: abdominal pain Genitourinary: Denies: burning Neurologic/Psychiatric: Denies: anxiety, depressed Allergies: Coded Allergies: SILVER (Verified Allergy, Mild, 06/13/18) AZATHIOPRINE (Verified Allergy, Unknown, 05/15/18) DOCUSATE (Verified Allergy, Unknown, 05/15/18) ok for oral LATEX (Verified Allergy, Unknown, 05/15/18) VANCOMYCIN (Verified Allergy, Unknown, 05/15/18) BISACODYL (Verified Adverse Reaction, Severe, Rash, 05/15/18) Uncoded Allergies: IODINE CONTRAST (Allergy, Unknown, 05/15/18) TAPE (Allergy, Unknown, 05/15/18) Subjective Follow up for medical management Feels well today, pain is controlled with current regimen. No new rashes. Plan for OR tomorrow. Objective Last 24 Hour Vital Signs Date Time Temp Pulse Resp B/P (MAP) Pulse Ox O2 Delivery O2 Flow Rate FiO2 01/27/19 12:00 98.6 86 18 124/71 (88) 96 01/27/19 11:59 98.3 01/27/19 09:00 Room Air 01/27/19 08:00 98.3 96 18 129/74 (92) 95 01/27/19 04:00 97.6 86 19 131/71 (91) 98 01/27/19 00:00 97.6 102 18 117/69 (85) 96 01/26/19 21:00 Room Air 01/26/19 20:00 98.9 98 20 125/81 (96) 96 01/26/19 15:54 98.2 104 21 108/73 (85) 96 Intake and Output 01/26/19 01/27/19 19:00 07:00 Intake Total 590 ml 1070 ml Output Total 10 ml 10 ml Balance 580 ml 1060 ml Intake Oral 480 ml 960 ml IV Total 110 ml 110 ml Drainage Total 10 ml 10 ml # Voids 1 # Bowel Movements 1 Height (Feet): 5 Height (Inches): 5.00 Weight (Pounds): 187 General Appearance: no apparent distress, alert Neck: normal alignment, supple Cardiovascular: normal rate, regular rhythm Respiratory/Chest: lungs clear, normal breath sounds Abdomen: non tender, soft Markie Ortega MD Jan 27, 2019 13:42
[2019-01-27 16:00] VITALS: BP 129/72
[2019-01-27] MEDS: cefTRIAXone 1 GM in D5W 50 ML IVPB SCH (17:54)
--- NOTE | 2019-01-27 19:30 | NUR ---
NURSE NOTES: Receive a report from LIA Childress. Round is done. Pt is awake and alert, lying in bed. No acute distress noted. Wound Vac on placed on right axilla and no leaking noted. Itching is tolerated with IV Benadryl IVS. PICC on PAWAN with tegarderm dressing without infiltration but noted slight discoloration around insertion site. Will continue to monitor any further changes. Pt wants to wash hair before bedtime. Will continue to follow up.
--- NOTE | 2019-01-27 19:31 | NUR ---
HAND-OFF: Report given to Edmundo FITZGERALD, pt in stable condition. - During my shift pt requested pain medication (Dilaudid) and Benadryl around the clock. - consent signed for tomorrows procedure.
[2019-01-27 20:00] VITALS: BP 121/77
[2019-01-27] MEDS: Dyna-Hex 2% Top Sol 2oz TOPIC SCH (20:08)
--- NOTE | 2019-01-27 22:30 | NUR ---
NURSE NOTES: Done washing hair at the shower hyde. No dizziness noted. Wound vac and PICC sites are intact. Re-educate for MNNPO for surgery tomorrow. Pt verbalizes understanding. Will continue to monitor.
[2019-01-28] VITALS (16 sets, daily range): BP systolic 113–133; BP diastolic 65–77
[2019-01-28] MEDS: HYDROmorphone 1mg/ml Carpuject IVP PRN ×3 (00:19→09:12)
[2019-01-28] MEDS: HYDROcodone/Acetamin 10/325 tab ORAL PRN ×3 (01:44→20:41)
[2019-01-28] MEDS: DiphenhydrAMINE 50mg/ml Inj IVP PRN ×3 (04:05→17:52)
--- NOTE | 2019-01-28 07:00 | NUR ---
NURSE NOTES: Provide pain and pruritus medication as ordered. MNNPO and reeducate preparation before going down to OR. Pt is on period now. Will continue to monitor.
[2019-01-28] MEDS: oxyCONTIN 20mg tab ORAL SCH ×3 (07:13→22:04)
[2019-01-28] MEDS: metroNIDAZOLE 500mg tab ORAL SCH ×2 (07:13→14:00)
--- NOTE | 2019-01-28 07:30 | NUR ---
HAND-OFF: Report given to LIA Hernandez. Round is done.
--- NOTE | 2019-01-28 07:50 | NUR ---
NURSE NOTES: Pt awake pending surgery for this afternoon. NPO status until surgery. Per outgoing report pt awakes to receive pain medication on exact intervals. Current plan will be followed
--- NOTE | 2019-01-28 08:52 | General Progress Note ---
Assessment/Plan Assessment/Plan: (1) Right axillary wound reconstruction status post excision of hidradenitis with flap reconstruction with a postoperative wound infection (2) S/p Debridement of right axillary wound and Placement of wound VAC. (3) Right Axilla pain Patient will be continued on Dilaudid, Oxycontin, [place] and Neurontin D/w Dr. Long and he concurred. Subjective Date patient seen: Jan 28, 2019 Time patient seen: 07:45 - am Allergies: Coded Allergies: SILVER (Verified Allergy, Mild, 06/13/18) AZATHIOPRINE (Verified Allergy, Unknown, 05/15/18) DOCUSATE (Verified Allergy, Unknown, 05/15/18) ok for oral LATEX (Verified Allergy, Unknown, 05/15/18) VANCOMYCIN (Verified Allergy, Unknown, 05/15/18) BISACODYL (Verified Adverse Reaction, Severe, Rash, 05/15/18) Uncoded Allergies: IODINE CONTRAST (Allergy, Unknown, 05/15/18) TAPE (Allergy, Unknown, 05/15/18) Subjective Constitutional: Reports: no symptoms HEENT: Reports: no symptoms Cardiovascular: Reports: no symptoms Respiratory: Reports: cough Gastrointestinal/Abdominal: Reports: no symptoms Genitourinary: Reports: no symptoms Neurologic/Psychiatric: Reports: no symptoms Endocrine: Reports: no symptoms Hematologic/Lymphatic: Reports: no symptoms Subjective Patient is in bed and reports pain has been tolerated on the Oxycontin, [place] and Dilaudid. Scheduled for surgery for today. Objective Last 24 Hour Vital Signs Date Time Temp Pulse Resp B/P (MAP) Pulse Ox O2 Delivery O2 Flow Rate FiO2 01/28/19 04:00 98.0 83 18 129/72 (91) 95 01/28/19 00:00 98.6 92 18 125/75 (92) 96 01/27/19 21:00 Room Air 01/27/19 20:00 98.4 95 20 121/77 (92) 96 01/27/19 19:34 98.4 01/27/19 16:00 98.4 89 18 129/72 (91) 95 01/27/19 13:58 98.6 01/27/19 12:00 98.6 86 18 124/71 (88) 96 01/27/19 09:00 Room Air Intake and Output 01/27/19 01/28/19 19:00 07:00 # Voids 2 Height (Feet): 5 Height (Inches): 5.00 Weight (Pounds): 188 Objective General Appearance: no apparent distress, alert EENT: PERRL/EOMI, normal ENT inspection Neck: non-tender, normal alignment Respiratory/Chest: lungs clear, normal breath sounds Abdomen: normal bowel sounds, non tender Extremities: other - right axilla wound vac noted Edema: no edema noted Generalized Neurologic: alert, oriented x 3 Skin: normal pigmentation Hao Aldana Jan 28, 2019 08:52
--- NOTE | 2019-01-28 08:52 | General Progress Note ---
Assessment/Plan Problem List: (1) Hydradenitis ICD Codes: L73.2 - Hidradenitis suppurativa SNOMED: 45033826 (2) Wound cellulitis ICD Codes: L03.90 - Cellulitis, unspecified SNOMED: 897226248 (3) Wound dehiscence ICD Codes: T81.30XA - Disruption of wound, unspecified, initial encounter SNOMED: 526599194 (4) Abscess ICD Codes: L02.91 - Cutaneous abscess, unspecified SNOMED: 760360926 (5) Anxiety ICD Codes: F41.9 - Anxiety disorder, unspecified SNOMED: 17023549 (6) Depression ICD Codes: F32.9 - Major depressive disorder, single episode, unspecified SNOMED: 04076220 (7) Opioid use disorder, moderate, dependence ICD Codes: F11.20 - Opioid dependence, uncomplicated SNOMED: 03480334 Assessment/Plan: 23 year old female with hx of Hidradenitis suppurativa presents with right axillary wound dehiscence, purulent discharge and wound cellulitis after recent surgery and wound closure in December 2018 at which time hospital course also complicated by sepsis from Pneumonia. No evidence of sirs or sepsis currently, although BP is low normal, may be developing sirs/sepsis, also patient is on immunosuppressants. No leukocytosis, tachycardia or fever. now POD 6 s/p debridement of Right axillary wound and wound vac placement. #R axillary Hidradenitis suppurativa- wound dehiscence and cellulitis with purulent discharge POD 6 s/p debridement of axillary wound and wound vac placement. #Generalized pruritus, facial flushing, suspect adverse reaction to Clindamycin and daptomycin #right axillary intractable pain med/surg IV antibiotics- s/p Cefepime (01/21-01/24), and s/p Daptomycin (01/21-01-22). Stopped Daptomycin due to itching .Has allergies to Vancomycin and can't be on Zyvox due to being on antidepressants. started Clindamycin (01/22-01/24) stopped Clindamycin due to itching started Doxycycline 100 mg IV Q12 hr (01/24-) and Flagyl. Continue IV ceftriaxone (01/24-) Plastic surgery consult with Dr. Dr. Brambila recs appreciated. NPO for OR today f/u OR cultures and sensitivities. Aerobic wound culture right axilla: Staph coag negative, Diphtheroids. Anaerobic negative. Also group c strep. ID follow up pain control- IV Benadryl 50mg q6hr for pleuritis Topical Benadryl prn Pain management consult appreciated monitor vitals PICC placed due to poor IV access and need prolonged IV antibiotics d/w case therapist regaridng home health services and to set up wound vac. #Crohn's- stable. Remicade every 8 weeks. Due tomorrow. Will hold off due to infection- Used to see Dr. Ramirez, she was planning on seeing a new doctor in the same practice, Dr. Marielos Rapp [phone]. #Depression/Anxiety- stable. Continue home fluoxetine, and Aripiprazole. #vte ppx: Heparin #GI ppx: omeprazole Code status: full code I spent 40 minutes on this encounter. > 50% spent on counselling and care coordination. Case d/w Drs. Brambila and Imani. d/w patient Additional 35 minutes spent on prolonged services Subjective Date patient seen: Jan 28, 2019 Constitutional: Reports: other - pain 06/29, right armpit HEENT: Denies: no symptoms, eye pain, blurred vision, tearing, double vision, ear pain, ear discharge, nose pain, nose congestion, throat pain, throat swelling, mouth pain, mouth swelling, other Cardiovascular: Denies: no symptoms, chest pain, edema, irregular heart rate, lightheadedness, palpitations, syncope, other Respiratory: Denies: no symptoms, cough, orthopnea, shortness of breath, SOB with excertion, SOB at rest, sputum, stridor, wheezing, other Gastrointestinal/Abdominal: Denies: no symptoms, abdomen distended, abdominal pain, black stools, tarry stools, blood in stool, constipated, diarrhea, difficulty swallowing, nausea, poor appetite, poor fluid intake, rectal bleeding , vomiting, other Genitourinary: Denies: no symptoms, burning, discharge, frequency, flank pain, hematuria, incontinence, pain, urgency, other Neurologic/Psychiatric: Denies: no symptoms, anxiety, depressed, emotional problems, headache, numbness, paresthesia, pre-existing deficit, seizure, tingling, tremors, weakness, other Endocrine: Denies: no symptoms, excessive sweating, flushing, intolerance to cold, intolerance to heat, increased hunger, increased thirst, increased urine, unexplained weight gain, unexplained weight loss, other Hematologic/Lymphatic: Denies: no symptoms, anemia, easy bleeding, easy bruising, other Allergies: Coded Allergies: SILVER (Verified Allergy, Mild, 06/13/18) AZATHIOPRINE (Verified Allergy, Unknown, 05/15/18) DOCUSATE (Verified Allergy, Unknown, 05/15/18) ok for oral LATEX (Verified Allergy, Unknown, 05/15/18) VANCOMYCIN (Verified Allergy, Unknown, 05/15/18) BISACODYL (Verified Adverse Reaction, Severe, Rash, 05/15/18) Uncoded Allergies: IODINE CONTRAST (Allergy, Unknown, 05/15/18) TAPE (Allergy, Unknown, 05/15/18) Subjective Seen and examined POD #6 s/p debridement of R axillary wound and wound vac placement. Pain better. NPO for OR today Objective Last 24 Hour Vital Signs Date Time Temp Pulse Resp B/P (MAP) Pulse Ox O2 Delivery O2 Flow Rate FiO2 01/28/19 04:00 98.0 83 18 129/72 (91) 95 01/28/19 00:00 98.6 92 18 125/75 (92) 96 01/27/19 21:00 Room Air 01/27/19 20:00 98.4 95 20 121/77 (92) 96 01/27/19 19:34 98.4 01/27/19 16:00 98.4 89 18 129/72 (91) 95 01/27/19 13:58 98.6 01/27/19 12:00 98.6 86 18 124/71 (88) 96 01/27/19 09:00 Room Air Intake and Output 01/27/19 01/28/19 19:00 07:00 # Voids 2 Microbiology Date/Time Source Procedure Growth Status 01/21/19 15:55 Blood Blood Culture - Final NO GROWTH AFTER 5 DAYS Complete 01/21/19 17:00 Nasal Nares MRSA Culture - Final NO METHICILLIN RESISTANT STAPH AUREUS... Complete 01/22/19 19:30 Axilla Right Gram Stain - Final Complete 01/22/19 19:30 Aerobic Culture - Final Staphylococcus Sp Coag Neg Diphtheroids Complete 01/22/19 19:30 Axilla Right Anaerobic Culture - Final NO ANAEROBES ISOLATED Complete Labs Test 01/26/19 05:35 White Blood Count 10.1 K/UL (4.8-10.8) Red Blood Count 3.93 M/UL (4.20-5.40) Hemoglobin 10.7 G/DL (12.0-16.0) Hematocrit 32.7 % (37.0-47.0) Mean Corpuscular Volume 83 FL (80-99) Mean Corpuscular Hemoglobin 27.2 PG (27.0-31.0) Mean Corpuscular Hemoglobin Concent 32.6 G/DL (32.0-36.0) Red Cell Distribution Width 13.3 % (11.6-14.8) Platelet Count 270 K/UL (150-450) Mean Platelet Volume 5.5 FL (6.5-10.1) Neutrophils (%) (Auto) 59.7 % (45.0-75.0) Lymphocytes (%) (Auto) 27.2 % (20.0-45.0) Monocytes (%) (Auto) 8.8 % (1.0-10.0) Eosinophils (%) (Auto) 3.5 % (0.0-3.0) Basophils (%) (Auto) 0.7 % (0.0-2.0) Sodium Level 139 MMOL/L (136-145) Potassium Level 3.6 MMOL/L (3.5-5.1) Chloride Level 105 MMOL/L (98-107) Carbon Dioxide Level 26 MMOL/L (21-32) Anion Gap 8 mmol/L (5-15) Blood Urea Nitrogen 14 mg/dL (7-18) Creatinine 0.8 MG/DL (0.55-1.30) Estimat Glomerular Filtration Rate > 60 mL/min (>60) Glucose Level 110 MG/DL (74-106) Calcium Level 8.7 MG/DL (8.5-10.1) Total Bilirubin 0.2 MG/DL (0.2-1.0) Aspartate Amino Transf (AST/SGOT) 15 U/L (15-37) Alanine Aminotransferase (ALT/SGPT) 23 U/L (12-78) Alkaline Phosphatase 63 U/L (46-116) Total Protein 7.0 G/DL (6.4-8.2) Albumin 2.7 G/DL (3.4-5.0) Globulin 4.3 g/dL Albumin/Globulin Ratio 0.6 (1.0-2.7) Height (Feet): 5 Height (Inches): 5.00 Weight (Pounds): 188 Objective General Appearance: Ni distress Head: normocephalic, atraumatic Eyes: bilateral eye PERRL, bilateral eye EOMI ENT: dry mucus membranes Neck: supple Respiratory: lungs cta bl, no rales or rhonchi Cardiovascular : regular rate, rhythm Gastrointestinal: non tender, soft, obese, +bs Musculoskeletal: normal inspection, no calf tenderness or edema Neurologic: alert, oriented x4, grossly normal Psychiatric: normal affect Skin: R axilla wound dressing c/d/i, wound vac in place draining serosanguineous fluid. Left arm: PICC Isidro Johnson M.D. Jan 28, 2019 08:52
[2019-01-28] MEDS: Heparin 5000 units/ml inj SUBQ SCH ×2 (09:00→20:26)
[2019-01-28] MEDS: Doxycycline Hyclate 100 MG in D5W 110 ML IV SCH (09:03)
[2019-01-28] MEDS: ARIPiprazole 2mg tab ORAL SCH (09:04)
--- NOTE | 2019-01-28 10:58 | Pre-Procedure Note/Attestation ---
Pre-Procedure Note/Attestation Complete Prior to Procedure Planned Procedure: right Procedure Narrative: Right axillary wound vac change Indications for Procedure Pre-Operative Diagnosis: Right axillary debridement and wound vac placement Attestation I attest that I discussed the nature of the procedure; its benefits; risks and complications; and alternatives (and the risks and benefits of such alternatives ), prior to the procedure, with the patient (or the patient's legal ict sales representative). I attest that, if there was a reasonable possibility of needing a blood transfusion, the patient (or the patient's legal ict sales representative) was given the [facility] standardized written summary, pursuant to the [place] Blood Safety Act ([place] Health and Safety Code # 1645, as amended). I attest that I re-evaluated the patient just prior to the surgery and that there has been no change in the patient's H&P, except as documented below: Sagar Brambila MD Jan 28, 2019 10:58
[2019-01-28] MEDS ORDERED: PCA Education Pamphlet MISC ONE ×2 (11:00→16:00)
[2019-01-28] MEDS ORDERED: Rate Change PCA 1 Each MISC PRN (11:00)
--- NOTE | 2019-01-28 11:29 | NUR ---
NURSE NOTES: Pt went down for surgery. Stable condition, Dr Fountain here earlier in shift to see pt . Wound Vac in place. ID Bracelet verified with transporter
[2019-01-28] MEDS ORDERED: Lidocaine 1% 10mg/ml/EPI 0.01mg/ml 50ml INJ ONE (11:42)
[2019-01-28] MEDS ORDERED: Bacitracin 50000 Units Vial ONE (11:42)
[2019-01-28] MEDS ORDERED: fentaNYL 100 mcg/2 mL IV ONE (11:45)
[2019-01-28] MEDS ORDERED: Midazolam 2mg/2ml Inj ONE (11:45)
[2019-01-28] MEDS ORDERED: Propofol 200mg/20ml IV ONE (11:46)
[2019-01-28] MEDS ORDERED: Lidocaine 1% MPF 10mg/ml 5ml ONE (11:46)
[2019-01-28] MEDS ORDERED: NS Irrig 1000ml ONE (12:00)
[2019-01-28] MEDS ORDERED: Sterile Water Irrig 1000ml IRRIG ONE (12:00)
[2019-01-28] MEDS ORDERED: LR 1000ml 1,000 ML IVLG SCH (12:34)
--- NOTE | 2019-01-28 12:34 | Anethesia Preoperative Eval ---
Anesthesia Pre-op PMH/ROS General Date of Evaluation: Jan 28, 2019 Time of Evaluation: 11:46 Anesthesiologist: Mariola ASA Score: ASA 2 Mallampati Score Class I : Soft palate, uvula, fauces, pillars visible Class II: Soft palate, uvula, fauces visible Class III: Soft palate, base of uvula visible Class IV: Only hard plate visible Mallampati Classification: Class II Surgeon: Patty Diagnosis: Infected wound Surgical Procedure: Revision of R axillary wound Anesthesia History: none, PONV Family History: no anesthesia problems Allergies: Coded Allergies: SILVER (Verified Allergy, Mild, 06/13/18) AZATHIOPRINE (Verified Allergy, Unknown, 05/15/18) DOCUSATE (Verified Allergy, Unknown, 05/15/18) ok for oral LATEX (Verified Allergy, Unknown, 05/15/18) VANCOMYCIN (Verified Allergy, Unknown, 05/15/18) BISACODYL (Verified Adverse Reaction, Severe, Rash, 05/15/18) Uncoded Allergies: IODINE CONTRAST (Allergy, Unknown, 05/15/18) TAPE (Allergy, Unknown, 05/15/18) Patient NPO?: Yes NPO Date: Jan 28, 2019 NPO Time: 0750 Past Medical History Cardiovascular: Denies: HTN, CAD, MA, valve dz, arrhythmia, other Pulmonary: Denies: asthma, COPD, INDIRA, other Gastrointestinal/Genitourinary: Reports: GERD, other - Crohns d-s in remission Neurologic/Psychiatric: Reports: depression/anxiety; Denies: dementia, CVA, TIA, other Endocrine: Denies: DM, hypothyroidism, steroids, other HEENT: Denies: cataract (L), cataract (R), glaucoma, [place] (L), [place] (R), other Hematology/Immune: Reports: anemia - mild Musculoskeletal/Integumentary: Reports: other; Denies: OA, RA, DJD, DDD, edema Other: obesity PMH Narrative: as above PSxH Narrative: See H&P Anesthesia Pre-op Phys. Exam Physician Exam Last Vital Signs Date Time Temp Pulse Resp B/P (MAP) Pulse Ox O2 Delivery O2 Flow Rate FiO2 01/28/19 09:00 Room Air 01/28/19 08:00 98.0 73 18 124/70 (88) 93 01/24/19 19:58 21 01/23/19 08:44 1.0 Constitutional: NAD Neurologic: CN 2-12 intact Cardiovascular: RRR, no M/R/G Respiratory: CTA Gastrointestinal: other - obesity Airway Exam Mallampati Score: Class II MO: full Neck: flexible ROM: full Teeth: intact Dentures: no upper, no lower Anesthesia Pre-op A/P Labs see chart Risk Assessment & Plan Assessment: ASA 2 Plan: GA with LMA Status Change Before Surgery: No Pre-Antibiotics Drug: as scheduled Baudilio Garnett MD Jan 28, 2019 12:34
[2019-01-28] MEDS ORDERED: Metoclopramide 10mg/2ml Inj IVP PRN (12:45)
[2019-01-28] MEDS ORDERED: Meperidine 50mg/ml Inj(FOR RIGORS ONLY) IVP PRN (12:45)
[2019-01-28] MEDS ORDERED: Ketorolac 30mg Inj IV PRN (12:45)
[2019-01-28] MEDS ORDERED: DiphenhydrAMINE 50mg/ml Inj IVP PRN (12:45)
[2019-01-28] MEDS ORDERED: Midazolam 2mg/2ml Inj IVP PRN (12:45)
--- NOTE | 2019-01-28 12:45 | Operative Note - PDOC ---
Operative Note Operative Note Pre-op Diagnosis: Right axillary flap adjustment and wound vac placement Post-op Diagnosis: same as pre-op Surgeon: Patty Gear Grinder: Ava Anesthesia: general, local Specimen: none Complications: none Fluids: none Estimated Blood Loss: minimal Drains: wound vac Implant(s) used?: No Sagar Brabmila MD Jan 28, 2019 12:45
[2019-01-28] MEDS ORDERED: Meperidine 50mg/ml Inj(FOR RIGORS ONLY) ONE (12:52)
--- NOTE | 2019-01-28 12:57 | Immediate Post-Op Evaluation ---
Immediate Post-Op Evalulation Immediate Post-Op Evalulation Procedure: Revision of L axillary wound and woundvac change Date of Evaluation: Jan 28, 2019 Time of Evaluation: 12:56 IV Fluids: 200 Blood Products: none Estimated Blood Loss: min Urinary Output: none Blood Pressure Systolic: 118 Blood Pressure Diastolic: 76 Pulse Rate: 82 Respiratory Rate: 20 O2 Sat by Pulse Oximetry: 98 Temperature (Fahrenheit): 97.4 Pain Score (1-10): 2 Nausea: No Vomiting: No Complications none Patient Status: reacts, patent, none Hydration Status: adequate Baudilio Garnett MD Jan 28, 2019 12:57
[2019-01-28] MEDS: Hydromorphone 0.5mg/0.5ml inj IVP PRN ×2 (13:23→13:38)
--- NOTE | 2019-01-28 13:40 | NUR ---
NURSE NOTES: Pt remains off unit
[2019-01-28] MEDS: PCA HYDROmorphone 1mg/ml 30 ML IV PRN (14:27)
--- NOTE | 2019-01-28 15:10 | NUR ---
NURSE NOTES: Returned from surgery REFRIGERATION SUPERVISOR
--- NOTE | 2019-01-28 15:10 | NUR ---
NURSE NOTES: Pt returned from surgery, eyes closed moaning RADIO EQUIPMENT REPAIRER remote given to her. She noticed that wound vac did not have a cord. Immediately spoke clearly, " Where is the cord, it was just there, what did you guys do with it" Difficult to decipher actual pain level . Pain is subjective technical document writer is aware of that , yet pt can be either sleeping or drowsy and ask what is next. Director Immunology familiar with pt requires safety teaching in regards to medication. Director Immunology was giving Dilaudid IVP and looking at watch " what is taking you so long to give it? Give it fast and flush it twice, she says. " Directions of administration explained. Exactly when allotted time for Benadryl came technical document writer looking at her watch , " No one has given my Benadryl like that" Directions given ans risk of giving mediation fast explained. Current plan of care explained
--- NOTE | 2019-01-28 15:11 | NUR ---
CASE MANAGEMENT:REVIEW 01/28/19 SI: POD #7 S/P DEBRIDEMENT OF RT AXILLARY WOUND(+) STREP GROUP C) WOUND VAC PLACEMENT 98.0 73 18 124/70 93% ON RA IS: IV DOXYCYCLINE Q12 IV ROCEPHIN Q24 FLAGYL PO Q8HRS PRODUCT ASSEMBLER DILAUDID : MED/SURG STATUS 3 EAST PLAN: BACK TO SURGERY TODAY PATIENT WILL NEED WOUND VAC UPON DISCHARGE FAXED WOUND VAC FORM TO [facility] ~ THEY WILL NEED AUTHORIZATION FOR [facility] T:[phone]
[2019-01-28] MEDS ORDERED: NS 500ML ONE (15:47)
[2019-01-28] MEDS ORDERED: Tubing IV Secondary IV ONE (15:47)
[2019-01-28] MEDS: cefTRIAXone 1 GM in D5W 50 ML IVPB SCH (18:02)
--- NOTE | 2019-01-28 18:23 | NUR ---
NURSE NOTES: Break through pain medication given PO for complaints of pain of 6/10. Supervisor [employer] inquired the effectiveness of DRILLING SUPERINTENDENT pump since pain has been a steady 7/10 per report. " It helps a little. DRILLING SUPERINTENDENT pump interval checked pt pressed the pump 8 times and administered 7 times. Educated on use of DRILLING SUPERINTENDENT and frequency and that she can press when the light turns green. Provided with Benadryl as well IV, pt itching, states that Atarax is not effective. Wound vac is on and functioning on high 175 mm. Pt is aware of plan . States that she experiences PSD when ever she comes to the Hospital verbally encouraged that the same staff is here, and she is aware of the pattern for the procedures. Call light is in reach. Refused dinner tray , ordered out for dinner. Wash clothed provided
--- NOTE | 2019-01-28 19:05 | NUR ---
NURSE NOTES: Received report from LIA Hernandez, patient is a/ox4, breaths even regular and unlabored on R/A, picc line on PAWAN is double lumen , no iv fluids, on REPAIR WEAVER, c/o of pain of 10/30, will provide provide medication as soon as available
--- NOTE | 2019-01-28 19:15 | Infectious Diseases Prog Note ---
Assessment/Plan Assessment/Plan ASSESSMENT AND PLAN: 1. right axilla wound infection, cellulitis, ? abscess, hidradenitis suppurativa - s/p debridement on 01/22/19, s/p wound VAC and flap closure - admission wound culture with group c streptococcus - likely pathogenic - ceftriaxone and bactrim - day # 6 post-op of debridement - cannot tolerate clindamycin or daptomycin secondary to severe itching, allergy to vancomycin - monitor labs - surgical cultures noted and diagnostics tech and diphtheroids likely contaminants, anaerobic culture negative 2. Crohn's disease. I believe she is also on Remicade per the patient. History of colectomy. 3. Depression. 4. Anxiety. 5. Hidradenitis suppurativa status post multiple surgeries. 6. Allergies to azathioprine, bisacodyl, docusate, iodine contrast, latex, silver tape, vancomycin, and possible daptomycin with itching. 7. Social history is negative for smoking, alcohol, or drug abuse. 8. Family history is noncontributory. 9. MAR is noted. 10. Case was discussed with RN. 11. Case was discussed with Dr. Johnson. 12. Case was discussed with the patient. 13. Continue treatment per primary consultants. Subjective Constitutional: Denies: fever HEENT: Denies: congestion Respiratory: Denies: shortness of breath Cardiovascular: Denies: chest pain Gastrointestinal/Abdominal: Denies: nausea, vomiting Genitourinary: Reports: other - no santana ; Denies: dysuria, hematuria, frequency Neurologic: Denies: headache Psychiatric: Denies: depression Skin: Denies: rash Hematologic: Denies: bleeding Musculoskeletal: Denies: pain Allergies: Coded Allergies: SILVER (Verified Allergy, Mild, 06/13/18) AZATHIOPRINE (Verified Allergy, Unknown, 05/15/18) DOCUSATE (Verified Allergy, Unknown, 05/15/18) ok for oral LATEX (Verified Allergy, Unknown, 05/15/18) VANCOMYCIN (Verified Allergy, Unknown, 05/15/18) BISACODYL (Verified Adverse Reaction, Severe, Rash, 05/15/18) Uncoded Allergies: IODINE CONTRAST (Allergy, Unknown, 05/15/18) TAPE (Allergy, Unknown, 05/15/18) Objective Vital Signs Last 24 Hour Vital Signs Date Time Temp Pulse Resp B/P (MAP) Pulse Ox O2 Delivery O2 Flow Rate FiO2 01/28/19 16:00 98.1 72 18 132/74 (93) 94 01/28/19 14:30 97.7 75 15 124/67 100 Nasal Cannula 3 01/28/19 14:30 15 01/28/19 14:10 78 20 118/67 100 Nasal Cannula 3 01/28/19 14:08 97.1 01/28/19 13:55 77 19 113/65 100 Nasal Cannula 3 01/28/19 13:50 97.0 01/28/19 13:40 76 16 129/69 100 Nasal Cannula 3 01/28/19 13:25 78 13 133/73 100 Nasal Cannula 3 01/28/19 13:18 86 16 117/71 100 Nasal Cannula 3 01/28/19 13:15 86 15 117/71 100 Simple Mask 6 01/28/19 13:10 75 16 122/67 100 Simple Mask 6 01/28/19 13:00 73 15 124/68 100 Simple Mask 6 01/28/19 12:57 82 20 98 01/28/19 12:55 75 17 129/67 100 Simple Mask 6 01/28/19 12:53 97.3 71 16 124/77 100 Simple Mask 6 01/28/19 09:00 Room Air 01/28/19 08:00 98.0 73 18 124/70 (88) 93 01/28/19 04:00 98.0 83 18 129/72 (91) 95 01/28/19 00:00 98.6 92 18 125/75 (92) 96 01/27/19 21:00 Room Air 01/27/19 20:00 98.4 95 20 121/77 (92) 96 01/27/19 19:34 98.4 Height (Feet): 5 Height (Inches): 5.00 Weight (Pounds): 188 General Appearance: no acute distress HEENT: normocephalic, atraumatic, anicteric, mucous membranes moist Respiratory/Chest: lungs clear, normal breath sounds, no respiratory distress, no accessory muscle use Cardiovascular: normal rate, regular rhythm, no gallop/murmur, no JVD Abdomen: normal bowel sounds, soft, non tender, no organomegaly, non distended Genitourinary: other - no santana Extremities: no cyanosis Skin: no rash, other - right axilla wound covered Neurologic/Psychiatric: mechanical meter tester II-XII grossly normal, alert, responsive Lymphatic: no neck adenopathy Musculoskeletal: no effusion Objective none Microbiology Date/Time Source Procedure Growth Status 01/21/19 15:55 Blood Blood Culture - Final NO GROWTH AFTER 5 DAYS Complete 01/21/19 17:00 Nasal Nares MRSA Culture - Final NO METHICILLIN RESISTANT STAPH AUREUS... Complete 01/22/19 19:30 Axilla Right Gram Stain - Final Complete 01/22/19 19:30 Aerobic Culture - Final Staphylococcus Sp Coag Neg Diphtheroids Complete 01/22/19 19:30 Axilla Right Anaerobic Culture - Final NO ANAEROBES ISOLATED Complete Labs Test 01/26/19 05:35 White Blood Count 10.1 K/UL (4.8-10.8) Red Blood Count 3.93 M/UL (4.20-5.40) Hemoglobin 10.7 G/DL (12.0-16.0) Hematocrit 32.7 % (37.0-47.0) Mean Corpuscular Volume 83 FL (80-99) Mean Corpuscular Hemoglobin 27.2 PG (27.0-31.0) Mean Corpuscular Hemoglobin Concent 32.6 G/DL (32.0-36.0) Red Cell Distribution Width 13.3 % (11.6-14.8) Platelet Count 270 K/UL (150-450) Mean Platelet Volume 5.5 FL (6.5-10.1) Neutrophils (%) (Auto) 59.7 % (45.0-75.0) Lymphocytes (%) (Auto) 27.2 % (20.0-45.0) Monocytes (%) (Auto) 8.8 % (1.0-10.0) Eosinophils (%) (Auto) 3.5 % (0.0-3.0) Basophils (%) (Auto) 0.7 % (0.0-2.0) Sodium Level 139 MMOL/L (136-145) Potassium Level 3.6 MMOL/L (3.5-5.1) Chloride Level 105 MMOL/L (98-107) Carbon Dioxide Level 26 MMOL/L (21-32) Anion Gap 8 mmol/L (5-15) Blood Urea Nitrogen 14 mg/dL (7-18) Creatinine 0.8 MG/DL (0.55-1.30) Estimat Glomerular Filtration Rate > 60 mL/min (>60) Glucose Level 110 MG/DL (74-106) Calcium Level 8.7 MG/DL (8.5-10.1) Total Bilirubin 0.2 MG/DL (0.2-1.0) Aspartate Amino Transf (AST/SGOT) 15 U/L (15-37) Alanine Aminotransferase (ALT/SGPT) 23 U/L (12-78) Alkaline Phosphatase 63 U/L (46-116) Total Protein 7.0 G/DL (6.4-8.2) Albumin 2.7 G/DL (3.4-5.0) Globulin 4.3 g/dL Albumin/Globulin Ratio 0.6 (1.0-2.7) Current Medications Medications (Trade) Dose Ordered Sig/Alix Route PRN Reason Start Time Stop Time Status Last Admin Dose Admin Acetaminophen (Tylenol) 650 mg Q4H PRN ORAL FEVER 01/28/19 11:00 02/27/19 10:59 Acetaminophen/ Hydrocodone Bitart ([place] 10) 1 tab Q4H PRN ORAL Breakthrough Pain 01/24/19 09:45 01/31/19 09:44 01/28/19 16:36 Aripiprazole (Abilify) 2 mg DAILY ORAL 01/22/19 09:00 02/21/19 08:59 01/28/19 09:04 Ceftriaxone Sodium 1 gm/ Dextrose 50 ml @ 100 mls/hr Q24H IVPB 01/24/19 17:00 01/31/19 16:59 01/28/19 18:02 Chlorhexidine Gluconate ([place]-Hex 2%) 1 applic DAILY@2000 TOPIC 01/24/19 20:00 02/23/19 19:59 01/27/19 20:08 Diphenhydramine HCl (Benadryl Cream) 1 applic TIDPRN PRN TOPIC Itching 01/23/19 17:15 02/22/19 17:14 01/25/19 10:59 Diphenhydramine HCl (Benadryl) 50 mg Q6H PRN IVP Itching 01/23/19 18:30 02/08/19 18:29 01/28/19 17:52 Fluoxetine HCl (PROzac) 40 mg DAILY ORAL 01/22/19 09:00 02/21/19 08:59 01/28/19 09:04 Gabapentin (Neurontin) 100 mg THREE TIMES A DAY ORAL 01/24/19 09:45 02/23/19 09:44 01/28/19 17:52 Heparin Sodium (Porcine) (Heparin 5000 units/ml) 5,000 units EVERY 12 HOURS SUBQ 01/28/19 21:00 02/27/19 20:59 Hydromorphone HCl 30 ml @ 0 mls/hr Q24H PRN IV For Pain 01/28/19 12:00 01/30/19 11:59 01/28/19 14:27 Hydroxyzine HCl (Atarax) 25 mg Q6H PRN ORAL Itching 01/21/19 23:30 02/20/19 23:29 01/23/19 17:25 Metronidazole (Flagyl) 500 mg EVERY 8 HOURS ORAL 01/24/19 22:00 01/31/19 21:59 01/28/19 07:13 Miscellaneous Medication (RECORDS ADMINISTRATOR Rate Change) 1 ea DAILY PRN MISC rate change 01/28/19 11:00 01/30/19 10:59 Miscellaneous Medication (RECORDS ADMINISTRATOR shift volume) 1 ea Q12HR@0700,1900 MISC 01/28/19 19:00 01/30/19 18:59 Naloxone HCl (Narcan) 0.1 mg Q1M PRN IV RR<10/min OR SBP<90 mmHg 01/28/19 12:00 01/30/19 11:59 Ondansetron HCl (Zofran) 4 mg Q6H PRN IVP Nausea & Vomiting 01/28/19 11:00 02/27/19 10:59 Oxycodone HCl (OxyCONTIN) 20 mg Q8HR ORAL 01/24/19 09:45 01/31/19 09:44 01/28/19 07:13 Polyethylene Glycol (Miralax) 17 gm DAILY PRN ORAL Constipation 01/24/19 10:45 02/23/19 10:44 Trimethoprim/ Sulfamethoxazole (Bactrim-DS) 1 tab TWICE A DAY ORAL 01/29/19 09:00 02/05/19 08:59 Niya Webb MD Jan 28, 2019 19:15
--- NOTE | 2019-01-28 19:19 | NUR ---
HAND-OFF: Report given to Kody FITZGERALD made aware of use of EDGE BANDING OFF BEARER., and wound vac setting, s/p surgery to rt axillary Addendum: 01/28/19 at 1923 by Mary Lopes RN Hilda FITZGERALD
[2019-01-28] MEDS: PCA shift volume MISC SCH (19:21)
--- NOTE | 2019-01-28 19:30 | Operative Note - Dictated ---
DATE OF OPERATION: 01/28/2019 PREOPERATIVE DIAGNOSIS: Right axillary wound. POSTOPERATIVE DIAGNOSIS: Right axillary wound along with flap disconnected from the wound bed. PROCEDURES: 1. Re-insetting of the flap. 2. Wound VAC changed. SURGEON: Sagar Brambila M.D. NETWORKS COMPUTER CONSULTANT: Enzo Escalante M.D. ANESTHESIA: General. COMPLICATIONS: None. DRAINS: Included a wound VAC set to 175 mmHg continuous high suction. DISPOSITION: Stable to the recovery room. INDICATIONS FOR SURGERY: This is a 23-year-old female who is now six days status post wound VAC change for wound dehiscence. She has been undergoing continued wound VAC therapy since that time and has been doing well. She was consented to undergo a wound VAC change with an exam under anesthesia. She understood the risks and benefits of surgery and agreed to proceed. DETAILS OF THE OPERATION: The patient was brought to the operating room and laid in the supine position in the operating room table. Her right axilla and chest were prepped and draped in a sterile and usual fashion. The wound VAC was removed. The wound bed looked quite clean however it appeared that the flap was not sticking to the wound bed in an optimal situation as such we performed mechanical debridement of both the flap deep surface as well as the wound bed to allow for optimization of healing following suture placement. Once the abrasion of the surface was performed, multiple circumferential sutures were placed from the superior tip of the flap all the way to the base the flap on the inferior aspect of the flap to allow for optimal down of the flap to the wound bed. The remainder the procedure was uneventful. A sponge was then fashioned to fit the opening that was in the inferior aspect of the wound below the flap and sponge was then placed. Adhesive tapes were placed and the wound VAC was then turned on and noted to be functioning at full suction at 175 mmHg. The plan will be to perform another wound VAC change within two to three days to be sure that the flap inset is stable and we will perform another wound VAC change at that time and we will discharge the patient later this week. The patient tolerated the procedure well. There were no complications. Sagar Brambila M.D. DR: Shayna JOB#: [id number] CC:
[2019-01-28] MEDS: Dyna-Hex 2% Top Sol 2oz TOPIC SCH (20:24)
[2019-01-29] VITALS: BP_SYST 115; BP_SYST 119; BP_DIAS 70
[2019-01-29] MEDS: DiphenhydrAMINE 50mg/ml Inj IVP PRN ×4 (00:52→23:34)
[2019-01-29] MEDS: HydrOXYzine tab 25mg tab ORAL PRN ×3 (03:10→22:19)
[2019-01-29] MEDS: DiphenhydrAMINE & Zinc 28g Cream TOPIC PRN (03:34)
[2019-01-29 04:00] VITALS: BP 110/70
[2019-01-29] MEDS: oxyCONTIN 20mg tab ORAL SCH ×3 (06:08→21:03)
[2019-01-29] MEDS: PCA HYDROmorphone 1mg/ml 30 ML IV PRN (06:36)
--- NOTE | 2019-01-29 06:52 | 48 Hour Post Anesthesia Eval ---
Post Anesthesia Evaluation Procedure: Revision of L axillary wound and woundvac change Date of Evaluation: Jan 29, 2019 Time of Evaluation: 06:52 Blood Pressure Systolic: 110 0: 70 Pulse Rate: 87 Respiratory Rate: 19 Temperature (Fahrenheit): 98 O2 Sat by Pulse Oximetry: 97 Airway: patent Nausea: No Vomiting: No Pain Intensity: 2 Hydration Status: adequate Cardiopulmonary Status: Stable Mental Status/LOC: patient returned to baseline Follow-up Care/Observations: 0 Post-Anesthesia Complications: 0 Follow-up care needed: N/A Jadon Tripp MD Jan 29, 2019 06:52
[2019-01-29] MEDS: PCA shift volume MISC SCH ×2 (07:18→19:11)
[2019-01-29 08:00] VITALS: BP 107/67
--- NOTE | 2019-01-29 08:09 | NUR ---
HAND-OFF: Report given to LIA Hernandez.
--- NOTE | 2019-01-29 08:09 | NUR ---
NURSE NOTES: Pt up per report of outgoing nurse has requested every prn available did not sleep through the night. Pt currently requesting Benadryl. Will encourage for grooming, since per report her skin was itching and Benadryl cream was applied to her arms and back
[2019-01-29] MEDS: ARIPiprazole 2mg tab ORAL SCH (08:26)
[2019-01-29 08:27] LABS: ANION GAP 7 mmol/L (5-15); BLOOD UREA NITROGEN 11 mg/dL (7-18); CALCIUM 8.3 MG/DL (8.5-10.1); CARBON DIOXIDE 28 MMOL/L (21-32); CHLORIDE 106 MMOL/L (98-107); CREATININE 0.9 MG/DL (0.55-1.30); POTASSIUM 4.1 MMOL/L (3.5-5.1); SODIUM 140 MMOL/L (136-145)
[2019-01-29] MEDS: Heparin 5000 units/ml inj SUBQ SCH ×2 (08:28→21:03)
[2019-01-29 08:29] LABS: EOSINOPHILS % (AUTO) 4.8 % (0.0-3.0); HEMATOCRIT 34.2 % (37.0-47.0); HEMOGLOBIN 11.1 G/DL (12.0-16.0); LYMPHOCYTES % (AUTO) 31.7 % (20.0-45.0); MEAN CORPUSCULAR VOLUME 84 FL (80-99); MONOCYTES % (AUTO) 10.6 % (1.0-10.0); NEUTROPHILS % (AUTO) 51.9 % (45.0-75.0); PLATELET COUNT 221 K/UL (150-450); RED BLOOD COUNT 4.08 M/UL (4.20-5.40); RED CELL DISTRIBUTION WIDTH 13.5 % (11.6-14.8); WHITE BLOOD COUNT 9.3 K/UL (4.8-10.8)
--- NOTE | 2019-01-29 08:40 | General Progress Note ---
Assessment/Plan Problem List: (1) Hydradenitis ICD Codes: L73.2 - Hidradenitis suppurativa SNOMED: 88660179 (2) Wound cellulitis ICD Codes: L03.90 - Cellulitis, unspecified SNOMED: 478182275 (3) Wound dehiscence ICD Codes: T81.30XA - Disruption of wound, unspecified, initial encounter SNOMED: 935971600 (4) Abscess ICD Codes: L02.91 - Cutaneous abscess, unspecified SNOMED: 295463410 (5) Anxiety ICD Codes: F41.9 - Anxiety disorder, unspecified SNOMED: 60406925 (6) Depression ICD Codes: F32.9 - Major depressive disorder, single episode, unspecified SNOMED: 59032532 (7) Opioid use disorder, moderate, dependence ICD Codes: F11.20 - Opioid dependence, uncomplicated SNOMED: 98548621 Assessment/Plan: 23 year old female with hx of Hidradenitis suppurativa presents with right axillary wound dehiscence, purulent discharge and wound cellulitis after recent surgery and wound closure in December 2018 at which time hospital course also complicated by sepsis from Pneumonia. No evidence of sirs or sepsis currently, although BP is low normal, may be developing sirs/sepsis, also patient is on immunosuppressants. No leukocytosis, tachycardia or fever. now POD 7 s/p debridement of Right axillary wound and wound vac placement. #R axillary Hidradenitis suppurativa- wound dehiscence and cellulitis with purulent discharge POD 7 s/p debridement of axillary wound and wound vac placement. #Generalized pruritus, facial flushing, suspect adverse reaction to Clindamycin , daptomycin and Bactrim #right axillary intractable pain med/surg IV antibiotics- s/p Cefepime (01/21-01/24), and s/p Daptomycin (01/21-01-22). Stopped Daptomycin due to itching .Has allergies to Vancomycin and can't be on Zyvox due to being on antidepressants. started Clindamycin (01/22-01/24) stopped Clindamycin due to itching started Doxycycline 100 mg IV Q12 hr (01/24-) and Flagyl. switched to Bactrim, developed itching will switch back to Doxycycline. d/w ID Continue IV ceftriaxone (01/24-) Plastic surgery consult with Dr. Dr. Brambila recs appreciated. f/u OR cultures and sensitivities. Aerobic wound culture right axilla: Staph coag negative, Diphtheroids. Anaerobic negative. Also group c strep. ID follow up appreciated pain control- IV Benadryl 50mg q6hr for pleuritis Topical Benadryl prn Pain management consult appreciated monitor vitals PICC placed due to poor IV access and need prolonged IV antibiotics d/w case worker regarding home health services and to set up wound vac. #Crohn's- stable. Remicade every 8 weeks. Due tomorrow. Will hold off due to infection- Used to see Dr. Ramirez, she was planning on seeing a new doctor in the same practice, Dr. Marielos Rapp [phone]. #Depression/Anxiety- stable. Continue home fluoxetine, and Aripiprazole. #vte ppx: Heparin #GI ppx: omeprazole Code status: full code I spent 40 minutes on this encounter. > 50% spent on counselling and care coordination. Case d/w Drs. Brambila and Imani. d/w patient Additional 35 minutes spent on prolonged services Subjective Date patient seen: Jan 29, 2019 Constitutional: Reports: other - itching on the arms and 5/10 r axillary pain ; Denies: no symptoms, chills, diaphoresis, fever, malaise, weakness HEENT: Denies: no symptoms, eye pain, blurred vision, tearing, double vision, ear pain, ear discharge, nose pain, nose congestion, throat pain, throat swelling, mouth pain, mouth swelling, other Cardiovascular: Denies: no symptoms, chest pain, edema, irregular heart rate, lightheadedness, palpitations, syncope, other Respiratory: Denies: no symptoms, cough, orthopnea, shortness of breath, SOB with excertion, SOB at rest, sputum, stridor, wheezing, other Gastrointestinal/Abdominal: Denies: no symptoms, abdomen distended, abdominal pain, black stools, tarry stools, blood in stool, constipated, diarrhea, difficulty swallowing, nausea, poor appetite, poor fluid intake, rectal bleeding , vomiting, other Genitourinary: Denies: no symptoms, burning, discharge, frequency, flank pain, hematuria, incontinence, pain, urgency, other Neurologic/Psychiatric: Denies: no symptoms, anxiety, depressed, emotional problems, headache, numbness, paresthesia, pre-existing deficit, seizure, tingling, tremors, weakness, other Endocrine: Denies: no symptoms, excessive sweating, flushing, intolerance to cold, intolerance to heat, increased hunger, increased thirst, increased urine, unexplained weight gain, unexplained weight loss, other Hematologic/Lymphatic: Denies: no symptoms, anemia, easy bleeding, easy bruising, other Allergies: Coded Allergies: SILVER (Verified Allergy, Mild, 06/13/18) AZATHIOPRINE (Verified Allergy, Unknown, 05/15/18) DOCUSATE (Verified Allergy, Unknown, 05/15/18) ok for oral LATEX (Verified Allergy, Unknown, 05/15/18) VANCOMYCIN (Verified Allergy, Unknown, 05/15/18) BISACODYL (Verified Adverse Reaction, Severe, Rash, 05/15/18) Uncoded Allergies: IODINE CONTRAST (Allergy, Unknown, 05/15/18) TAPE (Allergy, Unknown, 05/15/18) Subjective Seen and examined POD #7 s/p debridement of R axillary wound and wound vac placement. abx changed to Bactrim and developed itching again. Objective Last 24 Hour Vital Signs Date Time Temp Pulse Resp B/P (MAP) Pulse Ox O2 Delivery O2 Flow Rate FiO2 01/29/19 06:52 87 19 97 01/29/19 04:00 98.0 87 19 110/70 (83) 97 01/29/19 04:00 87 19 97 01/29/19 00:00 98.1 77 18 119/70 (86) 98 01/29/19 00:00 77 18 98 01/28/19 21:11 98.1 01/28/19 21:11 98.1 01/28/19 21:00 Room Air 01/28/19 20:00 76 18 01/28/19 20:00 97.8 76 18 123/65 (84) 97 01/28/19 16:00 98.1 72 18 132/74 (93) 94 01/28/19 14:30 97.7 75 15 124/67 100 Nasal Cannula 3 01/28/19 14:30 15 01/28/19 14:10 78 20 118/67 100 Nasal Cannula 3 01/28/19 14:08 97.1 01/28/19 13:55 77 19 113/65 100 Nasal Cannula 3 01/28/19 13:50 97.0 01/28/19 13:40 76 16 129/69 100 Nasal Cannula 3 01/28/19 13:25 78 13 133/73 100 Nasal Cannula 3 01/28/19 13:18 86 16 117/71 100 Nasal Cannula 3 01/28/19 13:15 86 15 117/71 100 Simple Mask 6 01/28/19 13:10 75 16 122/67 100 Simple Mask 6 01/28/19 13:00 73 15 124/68 100 Simple Mask 6 01/28/19 12:57 82 20 98 01/28/19 12:55 75 17 129/67 100 Simple Mask 6 01/28/19 12:53 97.3 71 16 124/77 100 Simple Mask 6 01/28/19 09:00 Room Air Intake and Output 01/28/19 01/29/19 18:59 06:59 Intake Total 400 ml 1600 ml Output Total 10 ml Balance 390 ml 1600 ml Intake Oral 1600 ml IV Total 400 ml Estimated Blood Loss 10 ml # Voids 5 Laboratory Tests 01/29/19 07:50: White Blood Count 9.3, Red Blood Count 4.08L, Hemoglobin 11.1L, Hematocrit 34.2L , Mean Corpuscular Volume 84, Mean Corpuscular Hemoglobin 27.1, Mean Corpuscular Hemoglobin Concent 32.3, Red Cell Distribution Width 13.5, Platelet Count 221, Mean Platelet Volume 5.7L, Neutrophils (%) (Auto) 51.9, Lymphocytes ( %) (Auto) 31.7, Monocytes (%) (Auto) 10.6H, Eosinophils (%) (Auto) 4.8H, Basophils (%) (Auto) 1.0, Sodium Level 140, Potassium Level 4.1, Chloride Level 106, Carbon Dioxide Level 28, Anion Gap 7, Blood Urea Nitrogen 11, Creatinine 0.9, Estimat Glomerular Filtration Rate > 60, Glucose Level 96, Calcium Level 8.3L Height (Feet): 5 Height (Inches): 5.00 Weight (Pounds): 188 Objective General Appearance: Ni distress Head: normocephalic, atraumatic Eyes: bilateral eye PERRL, bilateral eye EOMI ENT: dry mucus membranes Neck: supple Respiratory: lungs cta bl, no rales or rhonchi Cardiovascular : regular rate, rhythm Gastrointestinal: non tender, soft, obese, +bs Musculoskeletal: normal inspection, no calf tenderness or edema Neurologic: alert, oriented x4, grossly normal Psychiatric: normal affect Skin: R axilla wound dressing c/d/i, wound vac in place draining serosanguineous fluid. Left arm: PICC, bilateral arms with palpable rashes and red Isidro Johnson M.D. Jan 29, 2019 08:40
[2019-01-29] MEDS ORDERED: Bactrim-DS 1 tab ORAL SCH (09:00)
--- NOTE | 2019-01-29 09:09 | NUR ---
CASE MANAGEMENT:REVIEW 01/29/19 SI: POD #8.....S/P DEBRIDEMENT POD #1...S/P RE-INSETTING OF FLAP. WOUND VAC CHANGED 98.0 87 19 110/70 97% ON RA H/H-.2 IS: IV ROCEPHIN Q24 BACTRIM PO BID HEPARIN SQ Q12 QM CONSULTANT DILAUDID OXYCONTIN PO Q8HRS PROZAC PO QD ABILIFY PO QD : MED/SURG STATUS 3 EAST PLAN: BACK TO SURGERY TODAY PATIENT WILL NEED WOUND VAC UPON DISCHARGE FAXED WOUND VAC FORM TO I
--- NOTE | 2019-01-29 10:38 | NUR ---
*-* INSURANCE *-* ALL AVAILABLE CLINICALS HAVE BEEN FAXED TO: [facility] M[facility]TT[facility] REF# [id number] FAX [phone] Work Fax
--- NOTE | 2019-01-29 11:04 | NUR ---
RESPIRATORY NOTE: Set up EtCO2 monitor for pt with CAUSTIC OPERATOR. Alarms are set at 35-45mmHg, Pt's EtCO2 is 41mmHg, saturates at 97% on room air 21%FiO2. Pt is awake, alert and able to follow commands. No SOB or resp distress noted. Will continue to monitor pt.
--- NOTE | 2019-01-29 11:43 | NUR ---
NURSE NOTES: Dr Johnson phoned pt bilateral arms are red and states she feels hot, NNO. Dr Gregorio phoned due to pt report that she feels hot bilateral arm are red, " I think it is the Bactrim, I had a delayed reaction" Pt requesting more Benadryl Atarax given. Awaiting return call Dr farris
--- NOTE | 2019-01-29 11:54 | NUR ---
NURSE NOTES: Dr Gregorio returned call Gerald damon
--- NOTE | 2019-01-29 11:59 | NUR ---
NURSE NOTES: Charge Nurse called to room to assess pt , per FOCUSED FACTORY MANAGER feels as if her throat is tight. Pt speaking clearly O2 saturation 97, skin color pink . Per assessment of charge nurse pt is not in distress
[2019-01-29 12:00] VITALS: BP 131/75
--- NOTE | 2019-01-29 13:17 | General Progress Note ---
Progress Note Progress Note Pt seen and examined. Doing well. Wound vac is functioning well. Flap is healthy and intact. Plan for wound vac change on . Doing well and plan for dc on monday. MD Patty Varma Amir MD Jan 29, 2019 13:17
--- NOTE | 2019-01-29 14:01 | NUR ---
RD ASSESSMENT & RECOMMENDATIONS SEE CARE ACTIVITY FOR COMPLETE ASSESSMENT DAILY ESTIMATED NEEDS: Needs based on Wound, surgery, obese; 64.8kg adj 25-30 kcals/kg 6246-7753 total kcals 1.25-2 g protein/kg 81-130 g total protein 25-30 mL/kg 4199-3690 total fluid mLs NUTRITION DIAGNOSIS: *Increased protein and micronutrients needs R/T wound healing as evidenced by h/o hidradenitis, s/p debridement and wound vac placement. PO DIET RECOMMENDATIONS: Regular ADDITIONAL RECOMMENDATIONS: 1) Obtain a standing weight as able 2) Wound care: add MVI x1 + Vit C 250mg QD : Robert BID added to tray
[2019-01-29 16:00] VITALS: BP 133/78
[2019-01-29] MEDS: cefTRIAXone 1 GM in D5W 50 ML IVPB SCH (17:00)
--- NOTE | 2019-01-29 17:01 | General Progress Note ---
Assessment/Plan Assessment/Plan: (1) Right axillary wound reconstruction status post excision of hidradenitis with flap reconstruction with a postoperative wound infection (2) S/p Debridement of right axillary wound and Placement of wound VAC (3) Right Axilla pain Patient will be continued on PILOT SUPERVISOR Dilaudid, Oxycontin, [place] and Neurontin D/w Dr. Long and he concurred. Subjective Date patient seen: Jan 29, 2019 Time patient seen: 04:15 - pm Allergies: Coded Allergies: SILVER (Verified Allergy, Mild, 06/13/18) AZATHIOPRINE (Verified Allergy, Unknown, 05/15/18) DOCUSATE (Verified Allergy, Unknown, 05/15/18) ok for oral LATEX (Verified Allergy, Unknown, 05/15/18) VANCOMYCIN (Verified Allergy, Unknown, 05/15/18) BISACODYL (Verified Adverse Reaction, Severe, Rash, 05/15/18) Uncoded Allergies: IODINE CONTRAST (Allergy, Unknown, 05/15/18) TAPE (Allergy, Unknown, 05/15/18) Subjective Constitutional: Reports: no symptoms HEENT: Reports: no symptoms Cardiovascular: Reports: no symptoms Respiratory: Reports: cough Gastrointestinal/Abdominal: Reports: no symptoms Genitourinary: Reports: no symptoms Neurologic/Psychiatric: Reports: no symptoms Endocrine: Reports: no symptoms Hematologic/Lymphatic: Reports: no symptoms Subjective Patient is s/p surgery yesterday and was started on PILOT SUPERVISOR Dilaudid having used .4mg in the last 24hrs. Dilaudid IV was discontinued and has been getting the Oxycontin and [place]. No new complaints at this time. Objective Last 24 Hour Vital Signs Date Time Temp Pulse Resp B/P (MAP) Pulse Ox O2 Delivery O2 Flow Rate FiO2 01/29/19 12:00 99.1 98 131/75 (93) 01/29/19 11:04 97 Room Air 21 01/29/19 09:00 Room Air 01/29/19 08:00 97.9 82 22 107/67 (80) 01/29/19 06:52 87 19 97 01/29/19 04:00 98.0 87 19 110/70 (83) 97 01/29/19 04:00 87 19 97 01/29/19 00:00 98.1 77 18 119/70 (86) 98 01/29/19 00:00 77 18 98 01/28/19 21:11 98.1 01/28/19 21:11 98.1 01/28/19 21:00 Room Air 01/28/19 20:00 76 18 01/28/19 20:00 97.8 76 18 123/65 (84) 97 Intake and Output 01/28/19 01/29/19 19:00 07:00 Intake Total 400 ml 1600 ml Output Total 10 ml Balance 390 ml 1600 ml Intake Oral 1600 ml IV Total 400 ml Estimated Blood Loss 10 ml # Voids 5 Laboratory Tests 01/29/19 07:50: White Blood Count 9.3, Red Blood Count 4.08L, Hemoglobin 11.1L, Hematocrit 34.2L , Mean Corpuscular Volume 84, Mean Corpuscular Hemoglobin 27.1, Mean Corpuscular Hemoglobin Concent 32.3, Red Cell Distribution Width 13.5, Platelet Count 221, Mean Platelet Volume 5.7L, Neutrophils (%) (Auto) 51.9, Lymphocytes ( %) (Auto) 31.7, Monocytes (%) (Auto) 10.6H, Eosinophils (%) (Auto) 4.8H, Basophils (%) (Auto) 1.0, Sodium Level 140, Potassium Level 4.1, Chloride Level 106, Carbon Dioxide Level 28, Anion Gap 7, Blood Urea Nitrogen 11, Creatinine 0.9, Estimat Glomerular Filtration Rate > 60, Glucose Level 96, Calcium Level 8.3L Height (Feet): 5 Height (Inches): 5.00 Weight (Pounds): 188 Objective General Appearance: no apparent distress, alert EENT: PERRL/EOMI, normal ENT inspection Neck: non-tender, normal alignment Respiratory/Chest: lungs clear, normal breath sounds Abdomen: normal bowel sounds, non tender Extremities: other - right axilla wound vac noted Edema: no edema noted Generalized Neurologic: alert, oriented x 3 Skin: normal pigmentation Hao Aldana Jan 29, 2019 17:01
--- NOTE | 2019-01-29 19:19 | NUR ---
NURSE NOTES: Wound Vac delivered earlier in shift for pt to take home. Made aware of change in orders related to antibiotic. Output to wound vac serous sanguinous. Remains on RELAY MAN . Pain has been more manageable today. Continued to have concerns with itching, Benadryl and Atarax given . Dr Johnson made aware that pt request all PRN medications. Pending discharge for Monday. Current plan will be followed. Encouraged ambulation, pt encouraged to limit refine food intake 8 banana cakes at bedside
--- NOTE | 2019-01-29 19:23 | NUR ---
HAND-OFF: Report given to Dolores FITZGERALD.
[2019-01-29] MEDS: HYDROcodone/Acetamin 10/325 tab ORAL PRN (19:48)
[2019-01-29 20:00] VITALS: BP 117/79
[2019-01-29] MEDS: Dyna-Hex 2% Top Sol 2oz TOPIC SCH (21:01)
--- NOTE | 2019-01-29 22:07 | NUR ---
NURSE NOTE: Pt is A/Ox4 and VS stable. Pt's significant other is at the bedside. Orders reviewed and physical assessment completed. PICC line dressing is clean, dy, and intact. Wound vac dressing is clean, dry, and intact. Wound vac settings are 175 continuous. Call ornelas is within reach, will continue to monitor.
--- NOTE | 2019-01-29 22:13 | NUR ---
NURSE NOTE: The battery for the DOOR FRAME BUILDER pump while pt was using the restroom. For this reason, the 1999 DOOR FRAME BUILDER documentation could not be completed.
[2019-01-30] VITALS (8 sets, daily range): BP systolic 113–144; BP diastolic 65–86
[2019-01-30] MEDS: DiphenhydrAMINE 50mg/ml Inj IVP PRN ×3 (05:42→17:51)
--- NOTE | 2019-01-30 06:22 | NUR ---
NURSE NOTE: A blood draw for a BMP was attempted x2 via PICC line but blood return was not sufficient. Phlebotomy was asked at 0620 to attempt at drawing the lab specimen.
[2019-01-30] MEDS: oxyCONTIN 20mg tab ORAL SCH ×3 (06:42→21:58)
[2019-01-30] MEDS: PCA shift volume MISC SCH ×2 (07:20→19:29)
--- NOTE | 2019-01-30 07:35 | NUR ---
HAND-OFF: Report given to Amy.
--- NOTE | 2019-01-30 07:36 | NUR ---
NURSE NOTES: Received report from Dolores FITZGERALD. Patient is awake and oriented, no acute distress noted, reporting "I'm in a lot of pain", requesting [place], educated patient that must wait one hour between oxycontin and [place], patient verbalized agreement. Wound vac to right axilla running 175mmHg continuously. PAWAN PICC intact, BUSINESS ATTORNEY settings checked and verified against order. Patient updated on plan of care. Side rails upx2, bed low and locked, call light within reach.
[2019-01-30] MEDS: HYDROcodone/Acetamin 10/325 tab ORAL PRN (07:52)
[2019-01-30] MEDS: ARIPiprazole 2mg tab ORAL SCH (08:45)
[2019-01-30 08:46] LABS: ANION GAP 6 mmol/L (5-15); BLOOD UREA NITROGEN 7 mg/dL (7-18); CALCIUM 8.4 MG/DL (8.5-10.1); CARBON DIOXIDE 28 MMOL/L (21-32); CHLORIDE 106 MMOL/L (98-107); CREATININE 0.9 MG/DL (0.55-1.30); SODIUM 140 MMOL/L (136-145)
[2019-01-30] MEDS: Heparin 5000 units/ml inj SUBQ SCH ×2 (08:46→20:38)
[2019-01-30] MEDS: PCA HYDROmorphone 1mg/ml 30 ML IV PRN (08:47)
--- NOTE | 2019-01-30 08:53 | General Progress Note ---
Assessment/Plan Assessment/Plan: (1) Right axillary wound reconstruction status post excision of hidradenitis with flap reconstruction with a postoperative wound infection (2) S/p Debridement of right axillary wound and Placement of wound VAC (3) Right Axilla pain Patient will be continued on LONG WALL MINING MACHINE TENDER Dilaudid, Oxycontin, [place] and Neurontin D/w Dr. Long and he concurred. Subjective Date patient seen: Jan 30, 2019 Time patient seen: 07:45 - am Allergies: Coded Allergies: SILVER (Verified Allergy, Mild, 06/13/18) AZATHIOPRINE (Verified Allergy, Unknown, 05/15/18) DOCUSATE (Verified Allergy, Unknown, 05/15/18) ok for oral LATEX (Verified Allergy, Unknown, 05/15/18) VANCOMYCIN (Verified Allergy, Unknown, 05/15/18) BISACODYL (Verified Adverse Reaction, Severe, Rash, 05/15/18) Uncoded Allergies: IODINE CONTRAST (Allergy, Unknown, 05/15/18) TAPE (Allergy, Unknown, 05/15/18) Subjective Constitutional: Reports: no symptoms HEENT: Reports: no symptoms Cardiovascular: Reports: no symptoms Respiratory: Reports: cough Gastrointestinal/Abdominal: Reports: no symptoms Genitourinary: Reports: no symptoms Neurologic/Psychiatric: Reports: no symptoms Endocrine: Reports: no symptoms Hematologic/Lymphatic: Reports: no symptoms Subjective Patient is in bed and reports pain has been tolerated on the LONG WALL MINING MACHINE TENDER Dilaudid using 8mg in the last 24hrs, Oxycontin and [place]. Reports that she may be going back into the OR. Objective Last 24 Hour Vital Signs Date Time Temp Pulse Resp B/P (MAP) Pulse Ox O2 Delivery O2 Flow Rate FiO2 01/30/19 08:00 100 16 97 01/30/19 08:00 98.2 100 16 119/81 (94) 97 01/30/19 04:00 98.1 92 18 121/75 (90) 98 01/30/19 04:00 92 18 98 01/30/19 00:03 98.2 98 18 127/73 (91) 100 01/30/19 00:02 98 18 100 01/29/19 21:00 Room Air 01/29/19 20:00 95 Room Air 21 01/29/19 20:00 94 16 95 01/29/19 20:00 97.9 94 16 117/79 (92) 95 01/29/19 16:00 98.8 88 133/78 (96) 01/29/19 16:00 88 20 97 01/29/19 12:00 99.1 98 131/75 (93) 01/29/19 11:04 97 Room Air 21 01/29/19 09:00 Room Air Intake and Output 01/29/19 01/30/19 18:59 06:59 Intake Total 236 ml 780 ml Output Total 10 ml Balance 236 ml 770 ml Intake Oral 236 ml 780 ml Drainage Total 10 ml # Voids 2 Laboratory Tests 01/30/19 07:55: Sodium Level 140, Potassium Level 4.0, Chloride Level 106, Carbon Dioxide Level 28, Anion Gap 6, Blood Urea Nitrogen 7, Creatinine 0.9, Estimat Glomerular Filtration Rate > 60, Glucose Level 129H, Calcium Level 8.4L Height (Feet): 5 Height (Inches): 5.00 Weight (Pounds): 187 Objective General Appearance: no apparent distress, alert EENT: PERRL/EOMI, normal ENT inspection Neck: non-tender, normal alignment Respiratory/Chest: lungs clear, normal breath sounds Abdomen: normal bowel sounds, non tender Extremities: other - right axilla wound vac noted Edema: no edema noted Generalized Neurologic: alert, oriented x 3 Skin: normal pigmentation Hao Aldana Jan 30, 2019 08:53
--- NOTE | 2019-01-30 09:07 | NUR ---
NURSE NOTES: TRIM MOUNTER tubing and syringe changed per policy. 16.6mL of Dilaudid taken to pharmacy and wasted with pharmacist.
[2019-01-30] MEDS ORDERED: Naloxone 0.4mg/ml Inj IV PRN (09:39)
--- NOTE | 2019-01-30 09:39 | NUR ---
NURSE NOTES: Informed Dr. Brambila patient's CODE INSPECTOR to today at 1159. MD gave order to renew CODE INSPECTOR. Order entered.
[2019-01-30] MEDS ORDERED: Rate Change PCA 1 Each MISC PRN (09:45)
[2019-01-30] MEDS ORDERED: PCA HYDROmorphone 1mg/ml 30 ML IV PRN (10:00)
--- NOTE | 2019-01-30 10:15 | NUR ---
NURSE NOTES: Informed Dr. Johnson one lumen on PICC line very sluggish when flushed. ordered for cathoflo. Order read back and entered.
--- NOTE | 2019-01-30 10:28 | General Progress Note ---
Assessment/Plan Problem List: (1) Hydradenitis ICD Codes: L73.2 - Hidradenitis suppurativa SNOMED: 58484209 (2) Wound cellulitis ICD Codes: L03.90 - Cellulitis, unspecified SNOMED: 887132113 (3) Wound dehiscence ICD Codes: T81.30XA - Disruption of wound, unspecified, initial encounter SNOMED: 769483993 (4) Abscess ICD Codes: L02.91 - Cutaneous abscess, unspecified SNOMED: 857541495 (5) Anxiety ICD Codes: F41.9 - Anxiety disorder, unspecified SNOMED: 79854842 (6) Depression ICD Codes: F32.9 - Major depressive disorder, single episode, unspecified SNOMED: 50544964 (7) Opioid use disorder, moderate, dependence ICD Codes: F11.20 - Opioid dependence, uncomplicated SNOMED: 48435616 Assessment/Plan: 23 year old female with hx of Hidradenitis suppurativa presents with right axillary wound dehiscence, purulent discharge and wound cellulitis after recent surgery and wound closure in December 2018 at which time hospital course also complicated by sepsis from Pneumonia. No evidence of sirs or sepsis currently, although BP is low normal, may be developing sirs/sepsis, also patient is on immunosuppressants. No leukocytosis, tachycardia or fever. now s/p debridement of Right axillary wound and wound vac placement. #R axillary Hidradenitis suppurativa- wound dehiscence and cellulitis with purulent discharge s/p debridement of axillary wound and wound vac placement. #Generalized pruritus, facial flushing, suspect adverse reaction to Clindamycin , daptomycin and Bactrim #right axillary intractable pain med/surg Continue IV ceftriaxone (01/24-), doxycycline (01/24) per ID recs. (multiple allergies) Plastic surgery consult with Dr. Dr. Brambila recs appreciated. f/u OR cultures and sensitivities. Aerobic wound culture right axilla: Staph coag negative, Diphtheroids. Anaerobic negative. Also group c strep. ID follow up appreciated pain control- IV Benadryl 50mg q6hr for pleuritis Topical Benadryl prn Pain management consult appreciated monitor vitals PICC placed due to poor IV access and need prolonged IV antibiotics d/w assistant case manager regarding home health services and to set up wound vac. #Crohn's- stable. Remicade every 8 weeks. Due tomorrow. Will hold off due to infection- Used to see Dr. Ramirez, she was planning on seeing a new doctor in the same practice, Dr. Marielos Rapp [phone]. #Depression/Anxiety- stable. Continue home fluoxetine, and Aripiprazole. #GERD: Add Pepcid, avoid ppi due to risk of c diff, and pneumonia. d/w patient #vte ppx: Heparin #GI ppx: omeprazole Code status: full code disposition: 02/01 I spent 40 minutes on this encounter. > 50% spent on counselling and care coordination. Case d/w Drs. Brambila and Imani. d/w patient Subjective Date patient seen: Jan 30, 2019 Constitutional: Reports: no symptoms, chills, diaphoresis, fever, malaise, weakness, other - 6/10 pain , right under arm HEENT: Denies: no symptoms, eye pain, blurred vision, tearing, double vision, ear pain, ear discharge, nose pain, nose congestion, throat pain, throat swelling, mouth pain, mouth swelling, other Cardiovascular: Denies: no symptoms, chest pain, edema, irregular heart rate, lightheadedness, palpitations, syncope, other Gastrointestinal/Abdominal: Reports: no symptoms, abdomen distended, abdominal pain, black stools, tarry stools, blood in stool, constipated, diarrhea, difficulty swallowing, nausea, poor appetite, poor fluid intake, rectal bleeding , vomiting, other - severe GERD Genitourinary: Denies: no symptoms, burning, discharge, frequency, flank pain, hematuria, incontinence, pain, urgency, other Neurologic/Psychiatric: Denies: no symptoms, anxiety, depressed, emotional problems, headache, numbness, paresthesia, pre-existing deficit, seizure, tingling, tremors, weakness, other Endocrine: Denies: no symptoms, excessive sweating, flushing, intolerance to cold, intolerance to heat, increased hunger, increased thirst, increased urine, unexplained weight gain, unexplained weight loss, other Hematologic/Lymphatic: Denies: no symptoms, anemia, easy bleeding, easy bruising, other Allergies: Coded Allergies: SILVER (Verified Allergy, Mild, 06/13/18) AZATHIOPRINE (Verified Allergy, Unknown, 05/15/18) DOCUSATE (Verified Allergy, Unknown, 05/15/18) ok for oral LATEX (Verified Allergy, Unknown, 05/15/18) VANCOMYCIN (Verified Allergy, Unknown, 05/15/18) BISACODYL (Verified Adverse Reaction, Severe, Rash, 05/15/18) Uncoded Allergies: IODINE CONTRAST (Allergy, Unknown, 05/15/18) TAPE (Allergy, Unknown, 05/15/18) Subjective Seen and examined POD #8 s/p debridement of R axillary wound and wound vac placement. Says had severe GERD last night, asking for PPI. Objective Last 24 Hour Vital Signs Date Time Temp Pulse Resp B/P (MAP) Pulse Ox O2 Delivery O2 Flow Rate FiO2 01/30/19 09:00 Room Air 01/30/19 08:00 100 16 97 01/30/19 08:00 98.2 100 16 119/81 (94) 97 01/30/19 04:00 98.1 92 18 121/75 (90) 98 01/30/19 04:00 92 18 98 01/30/19 00:03 98.2 98 18 127/73 (91) 100 01/30/19 00:02 98 18 100 01/29/19 21:00 Room Air 01/29/19 20:00 95 Room Air 21 01/29/19 20:00 94 16 95 01/29/19 20:00 97.9 94 16 117/79 (92) 95 01/29/19 16:00 98.8 88 133/78 (96) 01/29/19 16:00 88 20 97 01/29/19 12:00 99.1 98 131/75 (93) 01/29/19 11:04 97 Room Air 21 Intake and Output 01/29/19 01/30/19 18:59 06:59 Intake Total 236 ml 780 ml Output Total 10 ml Balance 236 ml 770 ml Intake Oral 236 ml 780 ml Drainage Total 10 ml # Voids 2 Laboratory Tests 01/30/19 07:55: Sodium Level 140, Potassium Level 4.0, Chloride Level 106, Carbon Dioxide Level 28, Anion Gap 6, Blood Urea Nitrogen 7, Creatinine 0.9, Estimat Glomerular Filtration Rate > 60, Glucose Level 129H, Calcium Level 8.4L Height (Feet): 5 Height (Inches): 5.00 Weight (Pounds): 187 Objective General Appearance: Ni distress Head: normocephalic, atraumatic Eyes: bilateral eye PERRL, bilateral eye EOMI ENT: dry mucus membranes Neck: supple Respiratory: lungs cta bl, no rales or rhonchi Cardiovascular : regular rate, rhythm Gastrointestinal: non tender, soft, obese, +bs Musculoskeletal: normal inspection, no calf tenderness or edema Neurologic: alert, oriented x4, grossly normal Psychiatric: normal affect Skin: R axilla wound dressing c/d/i, wound vac in place draining serosanguineous fluid. Left arm: PICC, bilateral arms with palpable rashes and red Isidro Johnson M.D. Jan 30, 2019 10:28
--- NOTE | 2019-01-30 10:48 | NUR ---
NURSE NOTES: Received phone call from Dr. Brambila. gave orders for consent for tomorrow's surgery, NPO at midnight, and other nursing order r/t heparin dose. All orders read back and entered.
--- NOTE | 2019-01-30 10:55 | NUR ---
NURSE NOTES: Patient educated that she must go four hours without narcotics before signing consent form for surgery tomorrow, patient verbalized understanding, patient stated retail shift leader nurse may wake her up to sign consent form in early AM tomorrow, patient stated she does not think she will be able to go four hours without pain medication today while awake. Will endorse to nightshift nurse. Charge nurse aware.
[2019-01-30] MEDS ORDERED: Cathflo Alteplase 2mg Inj INJ SCH (11:00)
--- NOTE | 2019-01-30 11:40 | NUR ---
NURSE NOTES: Cathoflo dwelling in occluded lumen per policy, will reassess patency in one half hour.
--- NOTE | 2019-01-30 12:30 | NUR ---
NURSE NOTES: PICC lumen aspirated, flushing well now, cap changed.
--- NOTE | 2019-01-30 16:20 | NUR ---
CASE MANAGEMENT:REVIEW 01/30/19 SI: POD #9.....S/P DEBRIDEMENT POD #2...S/P RE-INSETTING OF FLAP. WOUND VAC CHANGED 98.3 96 20 144/86 97% ON RA IS: IV ROCEPHIN Q24 BACTRIM PO BID HEPARIN SQ Q12 BRANCH LEAD DILAUDID OXYCONTIN PO Q8HRS PROZAC PO QD ABILIFY PO QD : MED/SURG STATUS 3 EAST PLAN: DISCHARGE HOME ON MONDAY IF PATIENT REMAINS STABLE AND PAIN IS CONTROLLED. HOME WOUND VAC DELIVERED BY [facility] AND AT BEDSIDE.
--- NOTE | 2019-01-30 16:53 | NUR ---
*-* INSURANCE *-* ALL AVAILABLE CLINICALS HAVE BEEN FAXED TO: [facility] MARY:VIOLETTE REF# [id number] FAX [phone] Work Fax
[2019-01-30] MEDS: cefTRIAXone 1 GM in D5W 50 ML IVPB SCH (17:17)
--- NOTE | 2019-01-30 17:42 | Infectious Diseases Prog Note ---
Assessment/Plan Assessment/Plan ASSESSMENT AND PLAN: 1. right axilla wound infection, cellulitis, ? abscess, hidradenitis suppurativa - s/p debridement on 01/22/19, s/p wound VAC and flap closure - admission wound culture with group c streptococcus - likely pathogenic - ceftriaxone and doxycycline - day # 8 post-op of debridement - cannot tolerate clindamycin or daptomycin secondary to severe itching, allergy to vancomycin, rash bactrim - monitor labs - surgical cultures noted and weir fisherman and diphtheroids likely contaminants, anaerobic culture negative 2. Crohn's disease. I believe she is also on Remicade per the patient. History of colectomy. 3. Depression. 4. Anxiety. 5. Hidradenitis suppurativa status post multiple surgeries. 6. Allergies to azathioprine, bisacodyl, docusate, iodine contrast, latex, silver tape, vancomycin, and possible daptomycin with itching. 7. Social history is negative for smoking, alcohol, or drug abuse. 8. Family history is noncontributory. 9. MAR is noted. 10. Case was discussed with RN. 11. Case was discussed with Dr. Johnson. 12. Case was discussed with the patient. 13. Continue treatment per primary consultants. Subjective Constitutional: Reports: fatigue; Denies: fever HEENT: Denies: congestion Respiratory: Denies: shortness of breath Cardiovascular: Denies: chest pain Gastrointestinal/Abdominal: Denies: nausea, vomiting, diarrhea Genitourinary: Reports: other - no santana Neurologic: Denies: headache Psychiatric: Denies: depression Skin: Denies: rash Hematologic: Denies: bleeding Allergies: Coded Allergies: SILVER (Verified Allergy, Mild, 06/13/18) AZATHIOPRINE (Verified Allergy, Unknown, 05/15/18) DOCUSATE (Verified Allergy, Unknown, 05/15/18) ok for oral LATEX (Verified Allergy, Unknown, 05/15/18) VANCOMYCIN (Verified Allergy, Unknown, 05/15/18) BISACODYL (Verified Adverse Reaction, Severe, Rash, 05/15/18) Uncoded Allergies: IODINE CONTRAST (Allergy, Unknown, 05/15/18) TAPE (Allergy, Unknown, 05/15/18) Objective Vital Signs Last 24 Hour Vital Signs Date Time Temp Pulse Resp B/P (MAP) Pulse Ox O2 Delivery O2 Flow Rate FiO2 01/30/19 16:38 16 97 01/30/19 16:03 99.0 97 19 122/72 (89) 97 01/30/19 12:02 98.3 96 20 144/86 (105) 97 01/30/19 12:00 96 20 97 01/30/19 10:00 94 Room Air 21 01/30/19 09:00 Room Air 01/30/19 08:00 100 16 97 01/30/19 08:00 98.2 100 16 119/81 (94) 97 01/30/19 04:00 98.1 92 18 121/75 (90) 98 01/30/19 04:00 92 18 98 01/30/19 00:03 98.2 98 18 127/73 (91) 100 01/30/19 00:02 98 18 100 01/29/19 21:00 Room Air 01/29/19 20:00 95 Room Air 21 01/29/19 20:00 94 16 95 01/29/19 20:00 97.9 94 16 117/79 (92) 95 Height (Feet): 5 Height (Inches): 5.00 Weight (Pounds): 187 General Appearance: no acute distress HEENT: normocephalic, atraumatic, anicteric, mucous membranes moist Respiratory/Chest: lungs clear, normal breath sounds, no respiratory distress, no accessory muscle use Cardiovascular: normal rate, regular rhythm, no gallop/murmur, no JVD Abdomen: normal bowel sounds, soft, non tender, no organomegaly, non distended Genitourinary: other - no santana Extremities: no cyanosis Skin: no rash Neurologic/Psychiatric: smoking pipe coater II-XII grossly normal, alert, oriented x 3, responsive Lymphatic: no neck adenopathy Musculoskeletal: no effusion Objective Chest x-ray - nad Microbiology Date/Time Source Procedure Growth Status 01/21/19 15:55 Blood Blood Culture - Final NO GROWTH AFTER 5 DAYS Complete 01/21/19 17:00 Nasal Nares MRSA Culture - Final NO METHICILLIN RESISTANT STAPH AUREUS... Complete 01/22/19 19:30 Axilla Right Gram Stain - Final Complete 01/22/19 19:30 Aerobic Culture - Final Staphylococcus Sp Coag Neg Diphtheroids Complete 01/22/19 19:30 Axilla Right Anaerobic Culture - Final NO ANAEROBES ISOLATED Complete Labs Test 01/29/19 07:50 01/30/19 07:55 White Blood Count 9.3 K/UL (4.8-10.8) Red Blood Count 4.08 M/UL (4.20-5.40) Hemoglobin 11.1 G/DL (12.0-16.0) Hematocrit 34.2 % (37.0-47.0) Mean Corpuscular Volume 84 FL (80-99) Mean Corpuscular Hemoglobin 27.1 PG (27.0-31.0) Mean Corpuscular Hemoglobin Concent 32.3 G/DL (32.0-36.0) Red Cell Distribution Width 13.5 % (11.6-14.8) Platelet Count 221 K/UL (150-450) Mean Platelet Volume 5.7 FL (6.5-10.1) Neutrophils (%) (Auto) 51.9 % (45.0-75.0) Lymphocytes (%) (Auto) 31.7 % (20.0-45.0) Monocytes (%) (Auto) 10.6 % (1.0-10.0) Eosinophils (%) (Auto) 4.8 % (0.0-3.0) Basophils (%) (Auto) 1.0 % (0.0-2.0) Sodium Level 140 MMOL/L (136-145) 140 MMOL/L (136-145) Potassium Level 4.1 MMOL/L (3.5-5.1) 4.0 MMOL/L (3.5-5.1) Chloride Level 106 MMOL/L (98-107) 106 MMOL/L (98-107) Carbon Dioxide Level 28 MMOL/L (21-32) 28 MMOL/L (21-32) Anion Gap 7 mmol/L (5-15) 6 mmol/L (5-15) Blood Urea Nitrogen 11 mg/dL (7-18) 7 mg/dL (7-18) Creatinine 0.9 MG/DL (0.55-1.30) 0.9 MG/DL (0.55-1.30) Estimat Glomerular Filtration Rate > 60 mL/min (>60) > 60 mL/min (>60) Glucose Level 96 MG/DL (74-106) 129 MG/DL (74-106) Calcium Level 8.3 MG/DL (8.5-10.1) 8.4 MG/DL (8.5-10.1) Laboratory Tests Test 01/30/19 07:55 Sodium Level 140 MMOL/L (136-145) Potassium Level 4.0 MMOL/L (3.5-5.1) Chloride Level 106 MMOL/L (98-107) Carbon Dioxide Level 28 MMOL/L (21-32) Anion Gap 6 mmol/L (5-15) Blood Urea Nitrogen 7 mg/dL (7-18) Creatinine 0.9 MG/DL (0.55-1.30) Estimat Glomerular Filtration Rate > 60 mL/min (>60) Glucose Level 129 MG/DL (74-106) H Calcium Level 8.4 MG/DL (8.5-10.1) L Current Medications Medications (Trade) Dose Ordered Sig/Alix Route PRN Reason Start Time Stop Time Status Last Admin Dose Admin Acetaminophen (Tylenol) 650 mg Q4H PRN ORAL FEVER 01/28/19 11:00 02/27/19 10:59 Acetaminophen/ Hydrocodone Bitart ([place] ) 1 tab Q4H PRN ORAL Breakthrough Pain 01/24/19 09:45 01/31/19 09:44 01/30/19 07:52 Aripiprazole (Abilify) 2 mg DAILY ORAL 01/22/19 09:00 02/21/19 08:59 01/30/19 08:45 Ceftriaxone Sodium 1 gm/ Dextrose 50 ml @ 100 mls/hr Q24H IVPB 01/29/19 17:00 02/05/19 16:59 01/30/19 17:17 Chlorhexidine Gluconate (Magnolia-Hex 2%) 1 applic DAILY@2000 TOPIC 01/24/19 20:00 02/23/19 19:59 01/29/19 21:01 Diphenhydramine HCl (Benadryl Cream) 1 applic TIDPRN PRN TOPIC Itching 01/23/19 17:15 02/22/19 17:14 01/29/19 03:34 Diphenhydramine HCl (Benadryl) 50 mg Q6H PRN IVP Itching 01/23/19 18:30 02/08/19 18:29 01/30/19 11:44 Doxycycline Hyclate 100 mg/ Dextrose 100 ml @ 100 mls/hr Q12HR IV 01/29/19 21:00 02/05/19 20:59 01/30/19 08:46 Famotidine (Pepcid) 20 mg BID ORAL 01/30/19 10:14 03/01/19 10:13 01/30/19 10:20 Fluoxetine HCl (PROzac) 40 mg DAILY ORAL 01/22/19 09:00 02/21/19 08:59 01/30/19 08:45 Gabapentin (Neurontin) 100 mg THREE TIMES A DAY ORAL 01/24/19 09:45 02/23/19 09:44 01/30/19 13:51 Heparin Sodium (Porcine) (Heparin 5000 units/ml) 5,000 units EVERY 12 HOURS SUBQ 01/28/19 21:00 02/27/19 20:59 01/30/19 08:46 Hydromorphone HCl 30 ml @ 0 mls/hr Q24H PRN IV For Pain 01/30/19 10:00 02/01/19 09:59 Hydroxyzine HCl (Atarax) 25 mg Q6H PRN ORAL Itching 01/21/19 23:30 02/20/19 23:29 01/29/19 22:19 Miscellaneous Medication (EXPORT DOCUMENTS CLERK Rate Change) 1 ea DAILY PRN MISC rate change 01/30/19 09:45 02/01/19 09:44 Miscellaneous Medication (EXPORT DOCUMENTS CLERK shift volume) 1 ea Q12HR@0700,1900 MISC 01/30/19 19:00 02/01/19 18:59 Naloxone HCl (Narcan) 0.1 mg Q1M PRN IV RR<10/min OR SBP<90 mmHg 01/30/19 09:39 02/01/19 09:37 Ondansetron HCl (Zofran) 4 mg Q6H PRN IVP Nausea & Vomiting 01/28/19 11:00 02/27/19 10:59 01/30/19 11:44 Oxycodone HCl (OxyCONTIN) 20 mg Q8HR ORAL 01/24/19 09:45 01/31/19 09:44 01/30/19 13:51 Polyethylene Glycol (Miralax) 17 gm DAILY PRN ORAL Constipation 01/24/19 10:45 02/23/19 10:44 Niya Holley MD Jan 30, 2019 17:42
--- NOTE | 2019-01-30 19:29 | NUR ---
HAND-OFF: Report given to Edmundo FITZGERALD.
--- NOTE | 2019-01-30 19:30 | NUR ---
NURSE NOTES: Receive a report from LIA Reyes. Round is done. Pt is awake and alert, lying in bed. No acute distress noted. No respiratory distress noted. On AUTOMATION CONSULTANT for pain control. Pt is planning to do surgery tomorrow and will get a consent form after stopping pain medication for 4 hours. Pt is aware of it. PICC is inserted state on PAWAN and noted discoloration around insertion site but has not spread out. Call light within reach. Will continue to monitor.
[2019-01-30] MEDS: Dyna-Hex 2% Top Sol 2oz TOPIC SCH (20:35)
--- NOTE | 2019-01-30 22:00 | NUR ---
NURSE NOTES: Pt is awake and alert. Given pain medication as ordered and stop SCREEN PRINTING PASTER pump for next 4 hours to get consent form with pt's agreement. Wound Vac is connected to right axilla without leak and with setting. Will continue to monitor.
[2019-01-31] VITALS (16 sets, daily range): BP systolic 104–146; BP diastolic 62–85
--- NOTE | 2019-01-31 02:00 | NUR ---
NURSE NOTES: It has been 4hrs off from any pain medication. Filled out consent form by patient. Reconnect SUPERVISOR ORDNANCE TRUCK INSTALLATION to PICC on PAWAN. Will continue to monitor.
[2019-01-31] MEDS: DiphenhydrAMINE 50mg/ml Inj IVP PRN ×4 (02:03→23:01)
[2019-01-31 05:56] LABS: BASOPHILS % (AUTO) 0.8 % (0.0-2.0); EOSINOPHILS % (AUTO) 5.1 % (0.0-3.0); HEMATOCRIT 33.2 % (37.0-47.0); HEMOGLOBIN 10.7 G/DL (12.0-16.0); LYMPHOCYTES % (AUTO) 37.8 % (20.0-45.0); MEAN CORPUSCULAR VOLUME 84 FL (80-99); MONOCYTES % (AUTO) 8.6 % (1.0-10.0); NEUTROPHILS % (AUTO) 47.7 % (45.0-75.0); PLATELET COUNT 219 K/UL (150-450); RED BLOOD COUNT 3.96 M/UL (4.20-5.40); RED CELL DISTRIBUTION WIDTH 13.6 % (11.6-14.8); WHITE BLOOD COUNT 8.4 K/UL (4.8-10.8)
[2019-01-31] MEDS: oxyCONTIN 20mg tab ORAL SCH ×3 (06:00→21:06)
[2019-01-31 06:06] LABS: ANION GAP 5 mmol/L (5-15); BLOOD UREA NITROGEN 9 mg/dL (7-18); CALCIUM 8.5 MG/DL (8.5-10.1); CARBON DIOXIDE 28 MMOL/L (21-32); CHLORIDE 106 MMOL/L (98-107); CREATININE 0.8 MG/DL (0.55-1.30); POTASSIUM 4.1 MMOL/L (3.5-5.1); SODIUM 139 MMOL/L (136-145)
--- NOTE | 2019-01-31 06:10 | NUR ---
NURSE NOTES: Pt is asleep but easily awake. Provide routine pain medication in a cup and take a medicine cup back while looking for water. There was no pill in a cup but pt claims that she did not take it yet. Look for the pill in bed and taking out all blankets, pillow cases and pt's gown and looking on the floor. But could not be seen. CN made aware and call to Dr. Aldana. Left a message and waiting for call back. Will continue to follow up.
--- NOTE | 2019-01-31 07:12 | NUR ---
NURSE NOTES: Report received from o RN. Patient resting in semi-fowlers position in bed. Alert, oriented x4, calm, no distress on RA. PROFESSIONAL GOLF TOURNAMENT PLAYER (Dilaudid) with KVO IVF to L PICC, dressing CDI, bruising surrounding insertion site. Reinforced NPO status for OR today. Right axillary dressing CDI, wound vac 175 mmhg continuous. Right hand CMS+, skin warm, wiggles, pulses palpable, no NT. Pain to right axillary 7-8/10, tolerating PROFESSIONAL GOLF TOURNAMENT PLAYER Dilaudid. Requesting Benadryl for itching, will medicate. Bilateral SCDs off. Call light in reach, bed in lowest position, will continue to monitor.
[2019-01-31] MEDS: PCA shift volume MISC SCH ×2 (07:25→19:00)
--- NOTE | 2019-01-31 07:30 | NUR ---
HAND-OFF: Report given to LIA Segal. Endorse about pain medication.
[2019-01-31] MEDS: ARIPiprazole 2mg tab ORAL SCH (08:17)
[2019-01-31] MEDS: Heparin 5000 units/ml inj SUBQ SCH ×2 (09:00→21:13)
--- NOTE | 2019-01-31 09:04 | General Progress Note ---
Assessment/Plan Assessment/Plan: (1) Right axillary wound reconstruction status post excision of hidradenitis with flap reconstruction with a postoperative wound infection (2) S/p Debridement of right axillary wound and Placement of wound VAC (3) Right Axilla pain Patient will be continued on RETAIL BRANCH MANAGER Dilaudid, Oxycontin, [place] and Neurontin D/w Dr. Long and he concurred. Subjective Date patient seen: Jan 31, 2019 Time patient seen: 08:00 - am Allergies: Coded Allergies: SILVER (Verified Allergy, Mild, 06/13/18) AZATHIOPRINE (Verified Allergy, Unknown, 05/15/18) DOCUSATE (Verified Allergy, Unknown, 05/15/18) ok for oral LATEX (Verified Allergy, Unknown, 05/15/18) VANCOMYCIN (Verified Allergy, Unknown, 05/15/18) BISACODYL (Verified Adverse Reaction, Severe, Rash, 05/15/18) Uncoded Allergies: IODINE CONTRAST (Allergy, Unknown, 05/15/18) TAPE (Allergy, Unknown, 05/15/18) Subjective Constitutional: Reports: no symptoms HEENT: Reports: no symptoms Cardiovascular: Reports: no symptoms Respiratory: Reports: cough Gastrointestinal/Abdominal: Reports: no symptoms Genitourinary: Reports: no symptoms Neurologic/Psychiatric: Reports: no symptoms Endocrine: Reports: no symptoms Hematologic/Lymphatic: Reports: no symptoms Subjective Patient reports pain being well tolerated on the RETAIL BRANCH MANAGER Dilaudid which she has used 16mg of in the last 24hrs. Continue to use the Oxycontin as scheduled and [place] as needed. Will be going back into OR as per surgeon. No new complaints at this time. Objective Last 24 Hour Vital Signs Date Time Temp Pulse Resp B/P (MAP) Pulse Ox O2 Delivery O2 Flow Rate FiO2 01/31/19 04:00 98.0 87 18 112/69 (83) 95 01/31/19 04:00 87 18 94 01/31/19 00:00 86 22 96 01/31/19 00:00 98.4 86 22 115/70 (85) 95 01/30/19 23:40 98 Room Air 21 01/30/19 22:00 100 18 97 01/30/19 21:00 Room Air 01/30/19 20:00 99.0 92 19 113/65 (81) 97 01/30/19 20:00 92 18 97 01/30/19 16:38 16 97 01/30/19 16:03 99.0 97 19 122/72 (89) 97 01/30/19 12:02 98.3 96 20 144/86 (105) 97 01/30/19 12:00 96 20 97 01/30/19 10:00 94 Room Air 21 Intake and Output 01/30/19 01/31/19 19:00 07:00 Intake Total 1180 ml 300 ml Output Total 25 ml Balance 1155 ml 300 ml Intake Oral 1180 ml 300 ml Drainage Total 25 ml # Voids 2 4 Laboratory Tests 01/31/19 05:39: White Blood Count 8.4, Red Blood Count 3.96L, Hemoglobin 10.7L, Hematocrit 33.2L , Mean Corpuscular Volume 84, Mean Corpuscular Hemoglobin 27.1, Mean Corpuscular Hemoglobin Concent 32.3, Red Cell Distribution Width 13.6, Platelet Count 219, Mean Platelet Volume 5.5L, Neutrophils (%) (Auto) 47.7, Lymphocytes ( %) (Auto) 37.8, Monocytes (%) (Auto) 8.6, Eosinophils (%) (Auto) 5.1H, Basophils (%) (Auto) 0.8, Sodium Level 139, Potassium Level 4.1, Chloride Level 106, Carbon Dioxide Level 28, Anion Gap 5, Blood Urea Nitrogen 9, Creatinine 0.8 , Estimat Glomerular Filtration Rate > 60, Glucose Level 112H, Calcium Level 8.5 01/31/19 09:00: Urine HCG, Qualitative [Pending] Height (Feet): 5 Height (Inches): 4.00 Weight (Pounds): 187 Objective General Appearance: no apparent distress, alert EENT: PERRL/EOMI, normal ENT inspection Neck: non-tender, normal alignment Respiratory/Chest: lungs clear, normal breath sounds Abdomen: normal bowel sounds, non tender Extremities: other - right axilla wound vac noted Edema: no edema noted Generalized Neurologic: alert, oriented x 3 Skin: normal pigmentation Hao Aldana Jan 31, 2019 09:04
[2019-01-31] MEDS ORDERED: Bacitracin 50000 Units Vial ONE (09:44)
[2019-01-31] MEDS ORDERED: Lidocaine 1% 10mg/ml/EPI 0.01mg/ml 50ml INJ ONE (09:44)
--- NOTE | 2019-01-31 10:00 | NUR ---
NURSE NOTES: Patient sent down to OR via bed at 1000 in stable condition. Patient identification done. SPLITTING MACHINE OPERATOR syringe sent down to pharmacy.
--- NOTE | 2019-01-31 10:24 | Pre-Procedure Note/Attestation ---
Pre-Procedure Note/Attestation Complete Prior to Procedure Planned Procedure: right Procedure Narrative: Right axillary wound vac change and possible flap revision Indications for Procedure Pre-Operative Diagnosis: Right axillary flap adjustment and wound vac placement Attestation I attest that I discussed the nature of the procedure; its benefits; risks and complications; and alternatives (and the risks and benefits of such alternatives ), prior to the procedure, with the patient (or the patient's legal contracts representative). I attest that, if there was a reasonable possibility of needing a blood transfusion, the patient (or the patient's legal contracts representative) was given the [facility] standardized written summary, pursuant to the [place] Blood Safety Act ([place] Health and Safety Code # 1645, as amended). I attest that I re-evaluated the patient just prior to the surgery and that there has been no change in the patient's H&P, except as documented below: Sagar Brambila MD Jan 31, 2019 10:24
--- NOTE | 2019-01-31 10:26 | Anethesia Preoperative Eval ---
Anesthesia Pre-op PMH/ROS General Date of Evaluation: Jan 31, 2019 Time of Evaluation: 10:25 Anesthesiologist: Alisson Marks CRNA ASA Score: ASA 3 Mallampati Score Class I : Soft palate, uvula, fauces, pillars visible Class II: Soft palate, uvula, fauces visible Class III: Soft palate, base of uvula visible Class IV: Only hard plate visible Mallampati Classification: Class II Surgeon: Patty Diagnosis: hydradenitis suppurtiva Surgical Procedure: RIGH axxilary worund vac change Social History: drug use - opioid dependence Family History: no anesthesia problems Allergies: Coded Allergies: SILVER (Verified Allergy, Mild, 06/13/18) AZATHIOPRINE (Verified Allergy, Unknown, 05/15/18) DOCUSATE (Verified Allergy, Unknown, 05/15/18) ok for oral LATEX (Verified Allergy, Unknown, 05/15/18) VANCOMYCIN (Verified Allergy, Unknown, 05/15/18) BISACODYL (Verified Adverse Reaction, Severe, Rash, 05/15/18) Uncoded Allergies: IODINE CONTRAST (Allergy, Unknown, 05/15/18) TAPE (Allergy, Unknown, 05/15/18) Medications: see eMAR Patient NPO?: Yes NPO Date: Jan 31, 2019 NPO Time: 0000 Past Medical History Cardiovascular: Denies: HTN, CAD, [place], valve dz, arrhythmia, other Pulmonary: Denies: asthma, COPD, INDIRA, other Gastrointestinal/Genitourinary: Reports: other - chrohns s/p bowel resection; Denies: GERD, CRI, ESRD Neurologic/Psychiatric: Reports: depression/anxiety; Denies: dementia, CVA, TIA, other Endocrine: Denies: DM, hypothyroidism, steroids, other HEENT: Denies: cataract (L), cataract (R), glaucoma, TELIDA (L), TELIDA (R), other Hematology/Immune: Reports: anemia; Denies: DVT, bleeding disorder, other Musculoskeletal/Integumentary: Denies: OA, RA, DJD, DDD, edema, other Other: obesity, other PMH Narrative: as noted above PSxH Narrative: multiple (B) axillary I & D; bowel resection Anesthesia Pre-op Phys. Exam Physician Exam Last Vital Signs Date Time Temp Pulse Resp B/P (MAP) Pulse Ox O2 Delivery O2 Flow Rate FiO2 12/12/19 04:00 98.0 87 18 112/69 (83) 95 01/30/19 23:40 Room Air 21 01/28/19 14:30 3 Constitutional: NAD Neurologic: other - alert & oriented Cardiovascular: RRR Respiratory: CTA Gastrointestinal: S/NT/ND Airway Exam Mallampati Score: Class II MO: full Neck: FROM TMD: > 3FB ROM: full Teeth: intact Dentures: no upper, no lower Anesthesia Pre-op A/P Labs Hematology Test 01/31/19 05:39 White Blood Count 8.4 K/UL (4.8-10.8) Red Blood Count 3.96 M/UL (4.20-5.40) L Hemoglobin 10.7 G/DL (12.0-16.0) L Hematocrit 33.2 % (37.0-47.0) L Mean Corpuscular Volume 84 FL (80-99) Mean Corpuscular Hemoglobin 27.1 PG (27.0-31.0) Mean Corpuscular Hemoglobin Concent 32.3 G/DL (32.0-36.0) Red Cell Distribution Width 13.6 % (11.6-14.8) Platelet Count 219 K/UL (150-450) Mean Platelet Volume 5.5 FL (6.5-10.1) L Neutrophils (%) (Auto) 47.7 % (45.0-75.0) Lymphocytes (%) (Auto) 37.8 % (20.0-45.0) Monocytes (%) (Auto) 8.6 % (1.0-10.0) Eosinophils (%) (Auto) 5.1 % (0.0-3.0) H Basophils (%) (Auto) 0.8 % (0.0-2.0) Chemistry Test 01/31/19 05:39 Sodium Level 139 MMOL/L (136-145) Potassium Level 4.1 MMOL/L (3.5-5.1) Chloride Level 106 MMOL/L (98-107) Carbon Dioxide Level 28 MMOL/L (21-32) Anion Gap 5 mmol/L (5-15) Blood Urea Nitrogen 9 mg/dL (7-18) Creatinine 0.8 MG/DL (0.55-1.30) Estimat Glomerular Filtration Rate > 60 mL/min (>60) Glucose Level 112 MG/DL (74-106) H Calcium Level 8.5 MG/DL (8.5-10.1) Urine Test Test 01/31/19 09:00 Urine HCG, Qualitative Negative (NEGATIVE) Studies Pre-op Studies: EKG - NSR Risk Assessment & Plan Assessment: ASA 3, ok to proceed Plan: GA Status Change Before Surgery: No Pre-Antibiotics Drug: Alisson Caballero CRNA Jan 31, 2019 10:26
[2019-01-31] MEDS ORDERED: Lidocaine 1% MPF 10mg/ml 5ml ONE (10:28)
[2019-01-31] MEDS ORDERED: Propofol 200mg/20ml IV ONE (10:28)
[2019-01-31] MEDS ORDERED: fentaNYL 100 mcg/2 mL IV ONE (10:28)
[2019-01-31] MEDS ORDERED: Midazolam 2mg/2ml Inj ONE (10:29)
[2019-01-31] MEDS ORDERED: Rate Change PCA 1 Each MISC PRN (10:30)
[2019-01-31] MEDS ORDERED: Zolpidem 5mg tab ORAL PRN (10:30)
[2019-01-31] MEDS ORDERED: PCA HYDROmorphone 1mg/ml 30 ML IV PRN (10:30)
[2019-01-31] MEDS ORDERED: PCA Education Pamphlet MISC ONE (10:30)
[2019-01-31] MEDS ORDERED: Succinylcholine 20mg/ml 10ml vial ONE (10:50)
[2019-01-31] MEDS ORDERED: Sterile Water Irrig 1000ml IRRIG ONE (11:00)
[2019-01-31] MEDS ORDERED: NS Irrig 1000ml ONE (11:00)
--- NOTE | 2019-01-31 11:20 | Operative Note - PDOC ---
Operative Note Operative Note Pre-op Diagnosis: Right axillary wound vac change Post-op Diagnosis: same as pre-op Surgeon: Patty Helicopter Dispatcher: Ava Anesthesia: general, local Specimen: none Complications: none Fluids: none Estimated Blood Loss: minimal Drains: wound vac Implant(s) used?: No Sagar Brambila MD Jan 31, 2019 11:20
--- NOTE | 2019-01-31 11:32 | NUR ---
CASE MANAGEMENT:REVIEW 01/31/19 SI: POD #10.....S/P DEBRIDEMENT POD #3...S/P RE-INSETTING OF FLAP. WOUND VAC CHANGED 98.3 81 15 120/70 99% ON RA IS: IV ROCEPHIN Q24 BACTRIM PO BID HEPARIN SQ Q12 VARNISHER APPRENTICE DILAUDID OXYCONTIN PO Q8HRS PROZAC PO QD ABILIFY PO QD : MED/SURG STATUS 3 [facility] PLAN: DISCHARGE HOME ON MONDAY
[2019-01-31] MEDS ORDERED: Meperidine 50mg/ml Inj(FOR RIGORS ONLY) ONE (11:56)
[2019-01-31] MEDS ORDERED: DiphenhydrAMINE 50mg/ml Inj ONE (11:57)
[2019-01-31] MEDS ORDERED: Meperidine 50mg/ml Inj(FOR RIGORS ONLY) IVP PRN (12:00)
[2019-01-31] MEDS ORDERED: Hydromorphone 0.5mg/0.5ml inj IVP PRN (12:00)
[2019-01-31] MEDS ORDERED: DiphenhydrAMINE 50mg/ml Inj IVP PRN (12:00)
--- NOTE | 2019-01-31 12:58 | General Progress Note ---
Assessment/Plan Problem List: (1) Hydradenitis ICD Codes: L73.2 - Hidradenitis suppurativa SNOMED: 11342666 (2) Wound cellulitis ICD Codes: L03.90 - Cellulitis, unspecified SNOMED: 455139632 (3) Wound dehiscence ICD Codes: T81.30XA - Disruption of wound, unspecified, initial encounter SNOMED: 741256799 (4) Abscess ICD Codes: L02.91 - Cutaneous abscess, unspecified SNOMED: 706230748 (5) Anxiety ICD Codes: F41.9 - Anxiety disorder, unspecified SNOMED: 51338600 (6) Depression ICD Codes: F32.9 - Major depressive disorder, single episode, unspecified SNOMED: 29423141 (7) Opioid use disorder, moderate, dependence ICD Codes: F11.20 - Opioid dependence, uncomplicated SNOMED: 64012708 Assessment/Plan: 23 year old female with hx of Hidradenitis suppurativa presents with right axillary wound dehiscence, purulent discharge and wound cellulitis after recent surgery and wound closure in December 2018 at which time hospital course also complicated by sepsis from Pneumonia. No evidence of sirs or sepsis currently, although BP is low normal, may be developing sirs/sepsis, also patient is on immunosuppressants. No leukocytosis, tachycardia or fever. now s/p debridement of Right axillary wound and wound vac placement. #R axillary Hidradenitis suppurativa- wound dehiscence and cellulitis with purulent discharge s/p debridement of axillary wound and wound vac placement. #Generalized pruritus, facial flushing, suspect adverse reaction to Clindamycin , daptomycin and Bactrim #right axillary intractable pain med/surg Continue IV ceftriaxone (01/24-), doxycycline (01/24) per ID recs. (multiple allergies) Plastic surgery consult with Dr. Dr. Brambila recs appreciated. f/u OR cultures and sensitivities. Aerobic wound culture right axilla: Staph coag negative, Diphtheroids. Anaerobic negative. Also group c strep. ID follow up appreciated pain control- IV Benadryl 50mg q6hr for pleuritis Topical Benadryl prn Pain management consult appreciated monitor vitals PICC placed due to poor IV access and need prolonged IV antibiotics d/w piano case and bench assembler regarding home health services and to set up wound vac. #Crohn's- stable. Remicade every 8 weeks. Due tomorrow. Will hold off due to infection- Used to see Dr. Ramirez, she was planning on seeing a new doctor in the same practice, Dr. Marielos Rapp [phone]. #Depression/Anxiety- stable. Continue home fluoxetine, and Aripiprazole. #GERD: Add Pepcid, avoid ppi due to risk of c diff, and pneumonia. d/w patient #vte ppx: Heparin #GI ppx: omeprazole Code status: full code disposition: 02/01 I spent 40 minutes on this encounter. > 50% spent on counselling and care coordination. Case d/w Drs. Brambila and Imani. d/w patient Subjective Date patient seen: Jan 31, 2019 Constitutional: Reports: other - 09/29 pain HEENT: Denies: no symptoms, eye pain, blurred vision, tearing, double vision, ear pain, ear discharge, nose pain, nose congestion, throat pain, throat swelling, mouth pain, mouth swelling, other Cardiovascular: Denies: no symptoms, chest pain, edema, irregular heart rate, lightheadedness, palpitations, syncope, other Respiratory: Reports: cough, other - runny nose Gastrointestinal/Abdominal: Denies: no symptoms, abdomen distended, abdominal pain, black stools, tarry stools, blood in stool, constipated, diarrhea, difficulty swallowing, nausea, poor appetite, poor fluid intake, rectal bleeding , vomiting, other Genitourinary: Denies: no symptoms, burning, discharge, frequency, flank pain, hematuria, incontinence, pain, urgency, other Neurologic/Psychiatric: Denies: no symptoms, anxiety, depressed, emotional problems, headache, numbness, paresthesia, pre-existing deficit, seizure, tingling, tremors, weakness, other Endocrine: Denies: no symptoms, excessive sweating, flushing, intolerance to cold, intolerance to heat, increased hunger, increased thirst, increased urine, unexplained weight gain, unexplained weight loss, other Hematologic/Lymphatic: Denies: no symptoms, anemia, easy bleeding, easy bruising, other Allergies: Coded Allergies: SILVER (Verified Allergy, Mild, 06/13/18) AZATHIOPRINE (Verified Allergy, Unknown, 05/15/18) DOCUSATE (Verified Allergy, Unknown, 05/15/18) ok for oral LATEX (Verified Allergy, Unknown, 05/15/18) VANCOMYCIN (Verified Allergy, Unknown, 05/15/18) BISACODYL (Verified Adverse Reaction, Severe, Rash, 05/15/18) Uncoded Allergies: IODINE CONTRAST (Allergy, Unknown, 05/15/18) TAPE (Allergy, Unknown, 05/15/18) Subjective Seen and examined s/p debridement of R axillary wound and wound vac placement. has some respiratory symptoms, runny nose and cough. Procedure without complications Objective Last 24 Hour Vital Signs Date Time Temp Pulse Resp B/P (MAP) Pulse Ox O2 Delivery O2 Flow Rate FiO2 01/31/19 12:42 98.9 98 20 129/68 100 Nasal Cannula 3 01/31/19 12:32 22 01/31/19 12:20 82 20 143/72 100 Nasal Cannula 3 01/31/19 11:58 97 20 146/62 100 Simple Mask 8 01/31/19 11:45 78 20 134/70 100 Simple Mask 8 01/31/19 11:25 87 20 141/80 96 Simple Mask 8 01/31/19 11:19 98.8 97 20 146/62 95 Simple Mask 8 01/31/19 10:25 99 Room Air 21 01/31/19 08:00 81 15 95 01/31/19 08:00 98.3 81 15 120/70 (87) 95 01/31/19 04:00 98.0 87 18 112/69 (83) 95 01/31/19 04:00 87 18 94 01/31/19 00:00 86 22 96 01/31/19 00:00 98.4 86 22 115/70 (85) 95 01/30/19 23:40 98 Room Air 21 01/30/19 22:00 100 18 97 01/30/19 21:00 Room Air 01/30/19 20:00 99.0 92 19 113/65 (81) 97 01/30/19 20:00 92 18 97 01/30/19 16:38 16 97 01/30/19 16:03 99.0 97 19 122/72 (89) 97 Intake and Output 01/30/19 01/31/19 18:59 06:59 Intake Total 1180 ml 300 ml Output Total 25 ml Balance 1155 ml 300 ml Intake Oral 1180 ml 300 ml Drainage Total 25 ml # Voids 2 4 Laboratory Tests 01/31/19 05:39: White Blood Count 8.4, Red Blood Count 3.96L, Hemoglobin 10.7L, Hematocrit 33.2L , Mean Corpuscular Volume 84, Mean Corpuscular Hemoglobin 27.1, Mean Corpuscular Hemoglobin Concent 32.3, Red Cell Distribution Width 13.6, Platelet Count 219, Mean Platelet Volume 5.5L, Neutrophils (%) (Auto) 47.7, Lymphocytes ( %) (Auto) 37.8, Monocytes (%) (Auto) 8.6, Eosinophils (%) (Auto) 5.1H, Basophils (%) (Auto) 0.8, Sodium Level 139, Potassium Level 4.1, Chloride Level 106, Carbon Dioxide Level 28, Anion Gap 5, Blood Urea Nitrogen 9, Creatinine 0.8 , Estimat Glomerular Filtration Rate > 60, Glucose Level 112H, Calcium Level 8.5 01/31/19 09:00: Urine HCG, Qualitative Negative Height (Feet): 5 Height (Inches): 4.00 Weight (Pounds): 187 Objective General Appearance: Ni distress Head: normocephalic, atraumatic Eyes: bilateral eye PERRL, bilateral eye EOMI ENT: dry mucus membranes Neck: supple Respiratory: lungs cta bl, no rales or rhonchi Cardiovascular : regular rate, rhythm Gastrointestinal: non tender, soft, obese, +bs Musculoskeletal: normal inspection, no calf tenderness or edema Neurologic: alert, oriented x4, grossly normal Psychiatric: normal affect Skin: R axilla wound dressing c/d/i, wound vac in place draining serosanguineous fluid. Left arm: PICC, bilateral arms with palpable rashes and red Isidro Johnson M.D. Jan 31, 2019 12:58
--- NOTE | 2019-01-31 13:05 | NUR ---
NURSE NOTES: Patient returned from PACU at 1305 via bed to 321-1 on O2 3LNC, no distress. IVF with SHOTGUN SHELL ASSEMBLY MACHINE OPERATOR Dilaudid in place, to left PICC, site remains unchanged. Right axillary dressing CDI, wound vac [address], no output noted. RUE CMS remains unchanged. Pain 8/10. Bilateral SCDs off. Voided on BSC. (Menstruating). No NV. Diet ordered. Reinforced IS, verbalized understanding. Call light in reach, bed in lowest position, will continue to monitor.
--- NOTE | 2019-01-31 15:15 | Operative Note - Dictated ---
DATE OF OPERATION: 01/31/2019 PREOPERATIVE DIAGNOSIS: Open right axillary wound. POSTOPERATIVE DIAGNOSIS: Open right axillary wound. PROCEDURES: 1. Exam under anesthesia. 2. Wound VAC change to the right axilla. SURGEON: Sagar Brambila M.D. PRECISION LATHE OPERATOR: Enzo Escalante M.D. ANESTHESIA: General. COMPLICATIONS: None. DISPOSITION: Stable to the recovery room. INDICATIONS FOR SURGERY: This is a 23-year-old female, who is status post reconstruction of her right axillary wound from approximately five weeks ago, who sustained a dehiscence requiring debridement and wound VAC placement. She was last in the operating room on 01/28/2019 at which point in time she underwent a flap adjustment with re-suturing down to the wound bed along with wound VAC placement. She is now presenting to the operating room for exam under anesthesia with wound VAC change. She understands the risks and benefits of surgery and agrees to proceed. DETAILS OF THE OPERATION: The patient was brought to the operating room and laid in supine position on the operating room table. Her right axilla was examined following removal of the Tegaderm dressings and upon removal of the wound VAC sponge. We noted that there was very healthy granulation tissue at the base of the wound along with completely viable flap and the areas of the flap that had been previously sutured to the wound bed looked completely intact and the flap was adherent to the wound. There was no need for any debridement. The new wound VAC sponge was then replaced. Dressings were applied and the wound VAC was connected to 175 mmHg for pressure. The patient tolerated the procedure well. She will be discharged home tomorrow morning with a home wound VAC change with the plan being to undergo approximately four weeks of wound VAC changes on Monday, Monday, and Monday schedule. Sagar Brambila M.D. DR: MAICO JOB#: [id number] CC:
[2019-01-31] MEDS: cefTRIAXone 1 GM in D5W 50 ML IVPB SCH (17:07)
--- NOTE | 2019-01-31 19:15 | NUR ---
NURSE NOTES: Reviewed post op pain medication with Dr. Aldana, orders for [place] 10 mg and Oxycontin 20 mg, see orders/eMAR, patient updated on new orders, verbalized understanding. Addendum: 01/31/19 at 1938 by Luzma Arambula RN Will endorse to next shift nurse.
--- NOTE | 2019-01-31 19:30 | NUR ---
HAND-OFF: Report given to Mya FITZGERALD. Endorsed new orders for Breakthrough and scheduled pain medication. Wound Vac Output: 10 ml
--- NOTE | 2019-01-31 19:30 | NUR ---
NURSE NOTES: Patient received in bed, aaox4. WVAC at 100mmHg mod continuous with minimal drainage at this time, no leak. PICC line is c/d/i and patent. On PROGRAM EVALUATOR. PROGRAM EVALUATOR button and call light within reach.
[2019-01-31] MEDS: HYDROcodone/Acetamin 10/325 tab ORAL PRN (20:00)
[2019-01-31] MEDS: Dyna-Hex 2% Top Sol 2oz TOPIC SCH (20:00)
--- NOTE | 2019-01-31 20:46 | NUR ---
NURSE NOTES: Offered to change dressing of PICC line. Patient refused stating that doctor will discontinue her PICC line tomorrow anyway.
[2019-02-01] VITALS: BP_SYST 125; BP_SYST 132; BP_DIAS 76; BP_DIAS 85
[2019-02-01 04:00] VITALS: BP_SYST 111; BP_SYST 132; BP_DIAS 69; BP_DIAS 85
[2019-02-01] MEDS: oxyCONTIN 20mg tab ORAL SCH ×2 (05:03→13:49)
[2019-02-01] MEDS: DiphenhydrAMINE 50mg/ml Inj IVP PRN ×2 (05:04→11:18)
[2019-02-01] MEDS: HYDROcodone/Acetamin 10/325 tab ORAL PRN (06:39)
[2019-02-01] MEDS: PCA shift volume MISC SCH (07:00)
--- NOTE | 2019-02-01 07:22 | NUR ---
NURSE NOTES: Report received from Mya FITZGERALD, rounds made. Patient resting in high fowlers position in bed, alert, oriented x4, calm. No distress on RA, encouraged IS. OPERATOR COMMAND SUPPORT SYSTEMS (Dilaudid) in place. Right axillary dressing CDI, to wound vac (100 mmHG continuous moderate), small amount of serosangueinous output. Right arm/hand warm, wiggles, pulses palpable, grasp strong. Right axillary pain 7/10. Ice pack provided. Appetite fair, no NV. Bilateral SCDs off. Call light in reach, bed in lowest position, will continue to monitor.
--- NOTE | 2019-02-01 07:28 | NUR ---
HAND-OFF: Report given to Luzma FITZEGRALD.
[2019-02-01 08:00] VITALS: BP 114/69
[2019-02-01] MEDS: Heparin 5000 units/ml inj SUBQ SCH (09:11)
[2019-02-01] MEDS: ARIPiprazole 2mg tab ORAL SCH (09:13)
[2019-02-01] MEDS ORDERED: CEPHALEXIN500 MG ORAL (09:18)
[2019-02-01] MEDS ORDERED: DOXYCYCLINE HY100 M7 PO (09:18)
--- NOTE | 2019-02-01 09:19 | Discharge Summary ---
Discharge Summary Hospital Course Date of Admission Jan 21, 2019 at 15:30 Date of Discharge 02/01/19 Admitting Diagnosis WOUND DEHISCENCE,SEPSIS HPI Kenzie Caruso is a 23 year old female who was admitted on Jan 21, 2019 at 15:30 for Wound Dehiscence,Sepsis Consultations Plastic surgery: Dr. Brambila ID: Dr. Diallo Pain management: Dr. Long Procedures right axilla wound infection, cellulitis, ? abscess, hidradenitis suppurativa s/ p debridement on 01/22/19, s/p wound VAC and flap closure Hospital Course 23 year old female with hx of Hidradenitis suppurativa presents with right axillary wound dehiscence, purulent discharge and wound cellulitis after recent surgery and wound closure in December 2018 at which time hospital course also complicated by sepsis from Pneumonia. No evidence of sirs or sepsis currently, although BP is low normal, may be developing sirs/sepsis, also patient is on immunosuppressants. No leukocytosis, tachycardia or fever. now s/p debridement of Right axillary wound and wound vac placement. #Right axilla wound infection, cellulitis, ? abscess, hidradenitis suppurativa 3Right axilla intractable pain - s/p debridement on 01/22/19, s/p wound VAC and flap closure - admission wound culture with group c streptococcus - likely pathogenic - ceftriaxone and doxycycline - can discharge on keflex plus doxycycline for one week - cannot tolerate clindamycin or daptomycin secondary to severe itching, allergy to vancomycin, rash bactrim - surgical cultures noted and portable sawmill operator and diphtheroids likely contaminants, anaerobic culture negative -pain control- prescription pain medications done by pain management team -PICC placed due to poor IV access, will be removed today on discharge. d/w LIA Segal -d/w case filler regarding home health services and to set up wound vac. all set up. She will have her first wound vac change on Monday02/04/19 with the [facility] schedule. d/w Dr. Brambila #Crohn's- stable. Remicade every 8 weeks. Due tomorrow. Will hold off due to infection- Used to see Dr. Ramirez, she was planning on seeing a new doctor in the same practice, Dr. Marielos Rapp [phone]. #Depression/Anxiety- stable. Continue home fluoxetine, and Aripiprazole. #GERD: Add Pepcid, avoid ppi due to risk of c diff, and pneumonia. d/w patient #vte ppx: Heparin #GI ppx: omeprazole Code status: full code disposition: 02/01 I spent 40 minutes on this encounter. > 50% spent on counselling and care coordination. Case d/w Drs. Brambila and Imani. d/w patient Discharge Medications New Medications: Doxycycline Hyclate (Doxycycline Hyclate) 100 Mg Tablet.dr 100 MG PO BID for 7 Days, #14 TAB Continued Medications: Aripiprazole* (Abilify*) 2 Mg Tablet 5 MG ORAL DAILY Cephalexin* (Keflex*) 500 Mg Capsule 500 MG ORAL EVERY 6 HOURS for 7 Days, #28 CAP (This prescription has been renewed) Clonidine Hcl* (Catapres*) 0.1 Mg Tablet 0.1 MG ORAL EVERY 8 HOURS PRN for WITHDRAWAL SYMPTOMS Fluoxetine Hcl* (Fluoxetine Hcl*) 40 Mg Capsule 40 MG ORAL DAILY, CAP Omeprazole Magnesium (Prilosec Otc) 20 Mg Tablet.dr 20 MG ORAL DAILY, TAB Oxycodone Hcl/Acetaminophen 10-325 Mg Tablet (Percocet 10-325 Mg Tablet*) 1 Each Tablet 1 TAB ORAL Q4H PRN for For Pain DISPENSED ON 01/15/19 Discontinued Medications: Nystatin (Nystatin) 15 Gm Powder Unknown Dose TP BID Trimethoprim/Sulfamethoxazole 160/800* (Bactrim Ds Tablet*) 1 Each Tablet 1 TAB ORAL TWICE A DAY for 10 Days DISPENSED ON 01/15/19 Discharge Condition Upon Discharge: stable Discharge Disposition Patient was discharged to home with home health services Discharge Diagnoses: (1) Wound dehiscence (2) Wound cellulitis (3) Opioid use disorder, moderate, dependence (4) Hydradenitis (5) Depression (6) Anxiety (7) Crohns disease Isidro Johnson M.D. Feb 01, 2019 09:19
--- NOTE | 2019-02-01 10:32 | NUR ---
DISCHARGE PLANNED PATIENT WILL BE DISCHARGED HOME TODAY [facility] HAS PROVIDED WOUND VAC AND IS AT BEDSIDE FAXED ORDER TO [facility] T: [phone] F: [phone] CALLED AND SPOKE WITH MARCE REGARDING RESUMING CARE
--- NOTE | 2019-02-01 11:04 | General Progress Note ---
Assessment/Plan Assessment/Plan: (1) Right axillary wound reconstruction status post excision of hidradenitis with flap reconstruction with a postoperative wound infection (2) S/p Debridement of right axillary wound and Placement of wound VAC (3) Right Axilla pain Patient will be discontinued off EVP MANAGING DIRECTOR Dilaudid, will continued Oxycontin, Talmo and Neurontin. An RX for Dilaudid 2mg tab 20 tabs was sent to patients pharmacy of choice for severe breakthrough pain and was advised to continue the Percocet she has when discharged home. D/w Dr. Long and he concurred. Subjective Date patient seen: Feb 01, 2019 Time patient seen: 10:15 - am Allergies: Coded Allergies: SILVER (Verified Allergy, Mild, 06/13/18) AZATHIOPRINE (Verified Allergy, Unknown, 05/15/18) DOCUSATE (Verified Allergy, Unknown, 05/15/18) ok for oral LATEX (Verified Allergy, Unknown, 05/15/18) VANCOMYCIN (Verified Allergy, Unknown, 05/15/18) BISACODYL (Verified Adverse Reaction, Severe, Rash, 05/15/18) Uncoded Allergies: IODINE CONTRAST (Allergy, Unknown, 05/15/18) TAPE (Allergy, Unknown, 05/15/18) Subjective Constitutional: Reports: no symptoms HEENT: Reports: no symptoms Cardiovascular: Reports: no symptoms Respiratory: Reports: cough Gastrointestinal/Abdominal: Reports: no symptoms Genitourinary: Reports: no symptoms Neurologic/Psychiatric: Reports: no symptoms Endocrine: Reports: no symptoms Hematologic/Lymphatic: Reports: no symptoms Subjective Patient is doing better and reports pain at a moderate level using the Oxycontin as scheduled. With 18mg of the EVP MANAGING DIRECTOR being used as well. She will be discharged home as per the surgeon and basketball assembler. Has RX for Percocet 10/325mg at home but is worried it will not be effective on it own for severe pain. Objective Last 24 Hour Vital Signs Date Time Temp Pulse Resp B/P (MAP) Pulse Ox O2 Delivery O2 Flow Rate FiO2 02/01/19 09:24 98.0 02/01/19 08:00 97 18 92 02/01/19 08:00 99.8 97 18 114/69 (84) 92 02/01/19 04:00 106 16 96 02/01/19 04:00 99.0 106 16 132/85 (101) 96 02/01/19 00:00 115 16 96 01/31/19 23:58 99.1 115 16 132/85 (101) 96 01/31/19 21:00 Room Air Room Air 01/31/19 20:00 98.2 110 16 125/76 (92) 96 01/31/19 20:00 110 16 94 01/31/19 18:50 98 Room Air 21 01/31/19 16:00 98.2 107 15 104/64 (77) 95 01/31/19 16:00 111 18 93 01/31/19 15:00 98.1 98 14 112/77 (89) 96 01/31/19 14:00 98.0 115 14 112/66 (81) 97 01/31/19 13:30 98.0 83 14 118/76 (90) 95 01/31/19 13:02 22 01/31/19 13:00 98.1 86 15 127/75 (92) 100 01/31/19 13:00 98.9 92 20 129/68 100 Nasal Cannula 3 01/31/19 12:47 22 01/31/19 12:42 98.9 98 20 129/68 100 Nasal Cannula 3 01/31/19 12:32 22 01/31/19 12:20 82 20 143/72 100 Nasal Cannula 3 01/31/19 11:58 97 20 146/62 100 Simple Mask 8 01/31/19 11:45 78 20 134/70 100 Simple Mask 8 01/31/19 11:25 87 20 141/80 96 Simple Mask 8 01/31/19 11:19 98.8 97 20 146/62 95 Simple Mask 8 Intake and Output 01/31/19 02/01/19 19:00 07:00 Intake Total 700 ml 2400 ml Output Total 10 ml 10 ml Balance 690 ml 2390 ml Intake Oral 500 ml 2300 ml IV Total 200 ml 100 ml Drainage Total 10 ml 10 ml # Voids 3 4 Height (Feet): 5 Height (Inches): 4.00 Weight (Pounds): 187 Objective General Appearance: no apparent distress, alert EENT: PERRL/EOMI, normal ENT inspection Neck: non-tender, normal alignment Respiratory/Chest: lungs clear, normal breath sounds Abdomen: normal bowel sounds, non tender Extremities: other - right axilla wound vac noted Edema: no edema noted Generalized Neurologic: alert, oriented x 3 Skin: normal pigmentation Hao Aldana Feb 01, 2019 11:04
[2019-02-01 12:00] VITALS: BP 115/71
--- NOTE | 2019-02-01 12:59 | NUR ---
*-* INSURANCE *-* ALL AVAILABLE CLINICALS HAVE BEEN FAXED TO: [facility] MARY:VIOLETTE REF# [id number] FAX [phone] Work Fax
--- NOTE | 2019-02-01 13:03 | Infectious Diseases Prog Note ---
Assessment/Plan Assessment/Plan ASSESSMENT AND PLAN: 1. right axilla wound infection, cellulitis, ? 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 Johnson about antibiotics upon discharge 2. Crohn's disease. I believe she is also on Remicade per the patient. History of colectomy. 3. Depression. 4. Anxiety. 5. Hidradenitis suppurativa status post multiple surgeries. 6. Allergies to azathioprine, bisacodyl, docusate, iodine contrast, latex, silver tape, vancomycin, and possible daptomycin with itching. 7. Social history is negative for smoking, alcohol, or drug abuse. 8. Family history is noncontributory. 9. MAR is noted. 10. Case was discussed with RN. 11. Case was discussed with Dr. Johnson. 12. Case was discussed with the patient. 13. Continue treatment per primary consultants. Subjective Constitutional: Reports: fatigue, other - + wound VAC; Denies: fever HEENT: Denies: congestion Respiratory: Denies: shortness of breath Cardiovascular: Denies: chest pain Gastrointestinal/Abdominal: Denies: nausea, vomiting, diarrhea Genitourinary: Reports: other - no santana Neurologic: Denies: headache Psychiatric: Denies: depression Skin: Denies: rash Musculoskeletal: Denies: pain Allergies: Coded Allergies: SILVER (Verified Allergy, Mild, 06/13/18) AZATHIOPRINE (Verified Allergy, Unknown, 05/15/18) DOCUSATE (Verified Allergy, Unknown, 05/15/18) ok for oral LATEX (Verified Allergy, Unknown, 05/15/18) VANCOMYCIN (Verified Allergy, Unknown, 05/15/18) BISACODYL (Verified Adverse Reaction, Severe, Rash, 05/15/18) Uncoded Allergies: IODINE CONTRAST (Allergy, Unknown, 05/15/18) TAPE (Allergy, Unknown, 05/15/18) Objective Vital Signs Last 24 Hour Vital Signs Date Time Temp Pulse Resp B/P (MAP) Pulse Ox O2 Delivery O2 Flow Rate FiO2 02/01/19 12:04 97 Room Air 21 02/01/19 09:24 98.0 02/01/19 08:00 97 18 92 02/01/19 08:00 99.8 97 18 114/69 (84) 92 02/01/19 04:00 106 16 96 02/01/19 04:00 99.0 106 16 132/85 (101) 96 02/01/19 00:00 115 16 96 01/31/19 23:58 99.1 115 16 132/85 (101) 96 01/31/19 21:00 Room Air Room Air 01/31/19 20:00 98.2 110 16 125/76 (92) 96 01/31/19 20:00 110 16 94 01/31/19 18:50 98 Room Air 21 01/31/19 16:00 98.2 107 15 104/64 (77) 95 01/31/19 16:00 111 18 93 01/31/19 15:00 98.1 98 14 112/77 (89) 96 01/31/19 14:00 98.0 115 14 112/66 (81) 97 01/31/19 13:30 98.0 83 14 118/76 (90) 95 01/31/19 13:02 22 01/31/19 13:00 98.1 86 15 127/75 (92) 100 01/31/19 13:00 98.9 92 20 129/68 100 Nasal Cannula 3 Height (Feet): 5 Height (Inches): 4.00 Weight (Pounds): 187 General Appearance: no acute distress HEENT: normocephalic, atraumatic, anicteric, mucous membranes moist Respiratory/Chest: lungs clear, normal breath sounds, no respiratory distress, no accessory muscle use Cardiovascular: normal rate, regular rhythm, no gallop/murmur, no JVD Abdomen: normal bowel sounds, soft, non tender, no organomegaly, non distended Genitourinary: other - no santana Extremities: no cyanosis Skin: no rash, other - right axilla wound covered Neurologic/Psychiatric: fish 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 Complete 01/22/19 19:30 Axilla Right Gram Stain - Final Complete 01/22/19 19:30 Aerobic Culture - Final Staphylococcus Sp Coag Neg Diphtheroids Complete 01/22/19 19:30 Axilla Right Anaerobic Culture - Final NO ANAEROBES ISOLATED Complete Labs Test 01/30/19 07:55 01/31/19 05:39 01/31/19 09:00 Sodium Level 140 MMOL/L (136-145) 139 MMOL/L (136-145) Potassium Level 4.0 MMOL/L (3.5-5.1) 4.1 MMOL/L (3.5-5.1) Chloride Level 106 MMOL/L (98-107) 106 MMOL/L (98-107) Carbon Dioxide Level 28 MMOL/L (21-32) 28 MMOL/L (21-32) Anion Gap 6 mmol/L (5-15) 5 mmol/L (5-15) Blood Urea Nitrogen 7 mg/dL (7-18) 9 mg/dL (7-18) Creatinine 0.9 MG/DL (0.55-1.30) 0.8 MG/DL (0.55-1.30) Estimat Glomerular Filtration Rate > 60 mL/min (>60) > 60 mL/min (>60) Glucose Level 129 MG/DL (74-106) 112 MG/DL (74-106) Calcium Level 8.4 MG/DL (8.5-10.1) 8.5 MG/DL (8.5-10.1) White Blood Count 8.4 K/UL (4.8-10.8) Red Blood Count 3.96 M/UL (4.20-5.40) Hemoglobin 10.7 G/DL (12.0-16.0) Hematocrit 33.2 % (37.0-47.0) Mean Corpuscular Volume 84 FL (80-99) Mean Corpuscular Hemoglobin 27.1 PG (27.0-31.0) Mean Corpuscular Hemoglobin Concent 32.3 G/DL (32.0-36.0) Red Cell Distribution Width 13.6 % (11.6-14.8) Platelet Count 219 K/UL (150-450) Mean Platelet Volume 5.5 FL (6.5-10.1) Neutrophils (%) (Auto) 47.7 % (45.0-75.0) Lymphocytes (%) (Auto) 37.8 % (20.0-45.0) Monocytes (%) (Auto) 8.6 % (1.0-10.0) Eosinophils (%) (Auto) 5.1 % (0.0-3.0) Basophils (%) (Auto) 0.8 % (0.0-2.0) Urine HCG, Qualitative Negative (NEGATIVE) Current Medications Medications (Trade) Dose Ordered Sig/Alix Route PRN Reason Start Time Stop Time Status Last Admin Dose Admin Acetaminophen (Tylenol) 650 mg Q4H PRN ORAL FEVER 01/31/19 10:30 03/02/19 10:29 Acetaminophen/ Hydrocodone Bitart (Bison 10) 1 tab Q4H PRN ORAL Breakthrough Pain 01/31/19 19:45 02/07/19 19:44 02/01/19 06:39 Aripiprazole (Abilify) 2 mg DAILY ORAL 01/22/19 09:00 02/21/19 08:59 02/01/19 09:13 Ceftriaxone Sodium 1 gm/ Dextrose 50 ml @ 100 mls/hr Q24H IVPB 01/29/19 17:00 02/05/19 16:59 01/31/19 17:07 Chlorhexidine Gluconate (Magnolia-Hex 2%) 1 applic DAILY@2000 TOPIC 01/24/19 20:00 02/23/19 19:59 01/31/19 20:00 Diphenhydramine HCl (Benadryl Cream) 1 applic TIDPRN PRN TOPIC Itching 01/23/19 17:15 02/22/19 17:14 01/29/19 03:34 Diphenhydramine HCl (Benadryl) 50 mg Q6H PRN IVP Itching 01/23/19 18:30 02/08/19 18:29 02/01/19 11:18 Doxycycline Hyclate 100 mg/ Dextrose 100 ml @ 100 mls/hr Q12HR IV 01/29/19 21:00 02/05/19 20:59 02/01/19 09:12 Famotidine (Pepcid) 20 mg BID ORAL 01/30/19 10:14 03/01/19 10:13 02/01/19 09:13 Fluoxetine HCl (PROzac) 40 mg DAILY ORAL 01/22/19 09:00 02/21/19 08:59 02/01/19 09:13 Gabapentin (Neurontin) 100 mg THREE TIMES A DAY ORAL 01/24/19 09:45 02/23/19 09:44 02/01/19 09:12 Heparin Sodium (Porcine) (Heparin 5000 units/ml) 5,000 units EVERY 12 HOURS SUBQ 01/31/19 21:00 03/02/19 20:59 02/01/19 09:11 Hydroxyzine HCl (Atarax) 25 mg Q6H PRN ORAL Itching 01/21/19 23:30 02/20/19 23:29 01/29/19 22:19 Ondansetron HCl (Zofran) 4 mg Q6H PRN IVP Nausea & Vomiting 01/31/19 10:30 03/02/19 10:29 Oxycodone HCl (OxyCONTIN) 20 mg EVERY 8 HOURS ORAL 01/31/19 22:00 02/07/19 21:59 02/01/19 05:03 Polyethylene Glycol (Miralax) 17 gm DAILY PRN ORAL Constipation 01/24/19 10:45 02/23/19 10:44 Zolpidem Tartrate (Ambien) 5 mg DAILYPRN PRN ORAL Insomnia 01/31/19 10:30 02/07/19 10:29 Niya Holley MD Feb 01, 2019 13:03
--- NOTE | 2019-02-01 14:18 | NUR ---
NURSE NOTES: Left PICC dressing and catheter discontinued, using clean technique, with patient in supine position. Patient tolerated well. No active bleeding. Sterile gauze dressing applied. Patient remains in supine position with left arm flat, will continue to monitor.
[2019-02-01] MEDS ORDERED: HYDROMORPHONE HC2 M1 ORAL (15:41)
[2019-02-01] MEDS ORDERED: NS 500ML ONE (15:59)
[2019-02-01 16:00] VITALS: BP 120/68
--- NOTE | 2019-02-01 16:07 | NUR ---
NURSE NOTES: Prescription medications x3 delivered from [facility]. Discharge instructions and prescription medications reviewed with patient and family friend, verbalized understanding. All belongings, new home wound vac, discharge instructions and prescriptions medications sent with patient. Portal wound vac remains in place. Home health information provided. Patient sent down to lobby via , in stable condition. Discharged home at 1607.
[2019-02-01 16:28] VITALS: BP 115/70
--- NOTE | 2019-02-01 16:28 | 48 Hour Post Anesthesia Eval ---
Post Anesthesia Evaluation Procedure: Revision of L axillary wound and woundvac change Date of Evaluation: Feb 01, 2019 Time of Evaluation: 16:27 Blood Pressure Systolic: 115 0: 70 Pulse Rate: 100 O2 Sat by Pulse Oximetry: 98 Airway: patent Nausea: No Vomiting: No Pain Intensity: 6 Hydration Status: adequate Mental Status/LOC: patient returned to baseline Post-Anesthesia Complications: none Follow-up care needed: N/A Tiesha Machado CRNA Feb 01, 2019 16:28
== END 2019-02-01 16:00 | disposition home health service (06) | DRG 857 ==
LOC: EMR 15:16 → 3E 15:30 → EDBEDREQ 15:39
PROC: 0JB60ZZ Excision of Chest Subcutaneous Tissue and Fascia, Open Approach (ICD-10-PCS; principal; 2019-01-22 14:30)
PROC: 02HV33Z Insertion of Infusion Device into Superior Vena Cava, Percutaneous Approach (ICD-10-PCS; 2019-01-25)
PROC: B518ZZA Fluoroscopy of Superior Vena Cava, Guidance (ICD-10-PCS; 2019-01-25)
PROC: 2W1AX6Z Compression of Right Upper Arm using Pressure Dressing (ICD-10-PCS; 2019-01-25)
PROC: 2W1AX6Z Compression of Right Upper Arm using Pressure Dressing (ICD-10-PCS; 2019-01-28)
PROC: 0JDF0ZZ Extraction of Left Upper Arm Subcutaneous Tissue and Fascia, Open Approach (ICD-10-PCS; 2019-01-28)
DX: T81.49XA Infection following a procedure, other surgical site, initial encounter (principal); L03.111 Cellulitis of right axilla; F11.20 Opioid dependence, uncomplicated; T81.30XA Disruption of wound, unspecified, initial encounter; K50.90 Crohn's disease, unspecified, without complications; F32.9 Major depressive disorder, single episode, unspecified; F41.9 Anxiety disorder, unspecified; L73.2 Hidradenitis suppurativa; L29.8 Other pruritus; T36.8X5A Adverse effect of other systemic antibiotics, initial encounter; Y92.230 Patient room in hospital as the place of occurrence of the external cause
CPT/HCPCS: 36415; 36569; 71045; 76937; 77001; 80048; 80053; 81025; 82550; 82553; 83605; 83735; 84100; 85025; 87040; 87070; 87075; 87081; 87205; 93005; 94003; 94150; 94664; 96365; 96375; 99285; J2250; J2405; J3490; J7030; S0077

== ENCOUNTER 2019-02-10 20:26 | Inpatient (IN) | payer OTHER ==
[~2019-02-10] VITALS: Ht 165.1 cm; Wt 81.6 kg
--- NOTE | 2019-02-10 10:20 | NUR ---
NURSE NOTES: Pt. received by zoila, received report from LIA Cadena. Pt. AAOx4, on room air, vital signs stable, complaints of pain in the right axilla. Dressing in right axilla clean, dry, and intact. No shortness of breath or respiratory distress at this time. IV site right forearm 18g asymptomatic, intact and patent, saline locked. IV site left upper arm removed. Belongings checked and signed. Oriented patient to room and floor, educated to contact nurse with call light. Bed is in the low and locked position, side rails x2 are up, and call light is in reach. Orders received and will proceed with care. Addendum: 02/11/19 at 0315 by Brandon Bell RN Disregard time, entered in error. Correct time is 2220 on 02/10.
[~2019-02-10 20:26] MED LIST changes: +CATAPRES0.1 MG ORAL; +DOXYCYCLINE HY100 M7 PO; +FLUOXETINE HCL40 MG ORAL; +HYDROMORPHONE HC2 M1 ORAL; +PERCOCET 10-321 EACH ORAL
--- NOTE | 2019-02-10 20:44 | NUR ---
ED Nurse Note: Pt ambulated to ED from home c/o 10/10 sharp aching pain in R underarm, pt had surgery 3weeks prior, pain has intensified, pain medication ineffective. VSS pt is A&Ox4.
[2019-02-10 20:46] VITALS: BP 98/58
--- NOTE | 2019-02-10 21:09 | Emergency Room Report ---
History of Present Illness General Chief Complaint: Pain Source: Patient Present Illness HPI 23-year-old female with a history of hidradenitis. She had a right axillary wound flap surgery and vacuum done by Dr. Brambila weeks ago. She presents with increasing pain in that area. Been worse in the last week or so. She went to [place] a couple days ago. She waited forever and decided to leave. She was called to come back here. She said is increasing pain. Worse with movement. No fever chills. Slight drainage. 10 out of 10. Worse with movement. Better with rest. Drainage is mild. Denies any fever chills. Allergies: Coded Allergies: SILVER (Verified Allergy, Mild, 06/13/18) AZATHIOPRINE (Verified Allergy, Unknown, 05/15/18) DOCUSATE (Verified Allergy, Unknown, 05/15/18) ok for oral LATEX (Verified Allergy, Unknown, 05/15/18) VANCOMYCIN (Verified Allergy, Unknown, 05/15/18) BISACODYL (Verified Adverse Reaction, Severe, Rash, 05/15/18) Uncoded Allergies: IODINE CONTRAST (Allergy, Unknown, 05/15/18) TAPE (Allergy, Unknown, 05/15/18) Patient History Past Medical History: see triage record, old chart reviewed Past Surgical History: other Pertinent Family History: none Social History: Denies: smoking Now: No Immunizations: other Reviewed Nursing Documentation: PMH: Agreed; PSxH: Agreed Nursing Documentation-PMH Past Medical History: No History, Except For Hx Cardiac Problems: No Hx Cancer: No Hx Gastrointestinal Problems: Yes - C-diff: 3 years ago Hx Neurological Problems: No Review of Systems Eye: Denies: eye pain, blurred vision ENT: Denies: ear pain, nose congestion, throat swelling Respiratory: Denies: cough, shortness of breath Cardiovascular: Denies: chest pain, palpitations Gastrointestinal: Denies: abdominal pain, diarrhea, nausea, vomiting Musculoskeletal: Denies: back pain, joint pain Skin: Denies: rash Neurological: Denies: headache, numbness Endocrine: Denies: increased thirst, increased urine Hematologic/Lymphatic: Denies: easy bruising All Other Systems: negative except mentioned in HPI Physical Exam Vital Signs Date Time Temp Pulse Resp B/P (MAP) Pulse Ox O2 Delivery O2 Flow Rate FiO2 02/10/19 20:33 98.2 85 14 98/58 (71) Room Air Vitals unremarkable Sp02 EP Interpretation: reviewed, normal General Appearance: well appearing, no apparent distress, alert Head: normocephalic, atraumatic Eyes: bilateral eye PERRL, bilateral eye EOMI ENT: hearing grossly normal, normal pharynx Neck: full range of motion, supple, no meningismus Respiratory: chest non-tender, lungs clear, normal breath sounds Cardiovascular #1: regular rate, rhythm, no murmur Gastrointestinal: normal bowel sounds, non tender, no mass, no organomegaly, no bruit, non-distended Musculoskeletal: back normal, normal range of motion, gait/station normal, tender - Right axillary: The wound has good granulation tissue. There is some dehiscent. There is slight drainage at the central location where the wound VAC was. Palpation. Mild erythema. Psychiatric: mood/affect normal Medical Decision Making Diagnostic Impression: Primary Impression: Wound cellulitis Additional Impression: Post-operative pain ER Course Pt presents with increasing postoperative pain. May have a small underlying wound infection. Will admit for IV antibiotics and surgical evaluation. I discussed the case with Dr. Johnson who knows pt well. she will admit for Dr. Cabrera. Last Vital Signs Date Time Temp Pulse Resp B/P (MAP) Pulse Ox O2 Delivery O2 Flow Rate FiO2 02/10/19 20:46 98.2 85 14 98/58 Room Air Status: improved Disposition: ADMITTED INPATIENT Condition: Serious Cirilo Malone MD Feb 10, 2019 21:09
[2019-02-10] MEDS ORDERED: cefTRIAXone 1 GM in NS 55 ML IVPB ONE (21:15)
[2019-02-10] MEDS ORDERED: HYDROmorphone 1mg/ml Carpuject IVP ONE (21:15)
[2019-02-10] MEDS ORDERED: DiphenhydrAMINE 50mg/ml Inj ONE (21:27)
[2019-02-10] MEDS ORDERED: Albuterol/Ipratropium 3ml neb HHN PRN (21:45)
[2019-02-10] MEDS ORDERED: DiphenhydrAMINE 50mg/ml Inj IVP ONE (21:45)
[2019-02-10] MEDS ORDERED: HYDROmorphone 1mg/ml Carpuject IVP PRN (21:45)
[2019-02-10] MEDS ORDERED: Miralax 17gm pkt ORAL PRN (21:45)
--- NOTE | 2019-02-10 22:14 | NUR ---
TRANSFER TO FLOOR: Patient transferred to as ordered, per Dr Cabrera. Report given to LIA Taylor. Belongings and medications given to . Family and or S/O informed of transfer.
[2019-02-10 23:24] LABS: BASOPHILS % (AUTO) 0.8 % (0.0-2.0); EOSINOPHILS % (AUTO) 0.9 % (0.0-3.0); HEMATOCRIT 33.9 % (37.0-47.0); HEMOGLOBIN 11.5 G/DL (12.0-16.0); LYMPHOCYTES % (AUTO) 32.6 % (20.0-45.0); MEAN CORPUSCULAR VOLUME 81 FL (80-99); MONOCYTES % (AUTO) 7.1 % (1.0-10.0); NEUTROPHILS % (AUTO) 58.6 % (45.0-75.0); PLATELET COUNT 410 K/UL (150-450); RED BLOOD COUNT 4.18 M/UL (4.20-5.40); RED CELL DISTRIBUTION WIDTH 12.6 % (11.6-14.8); WHITE BLOOD COUNT 12.3 K/UL (4.8-10.8)
--- NOTE | 2019-02-10 23:32 | NUR ---
NURSE NOTES: Patient noted with meds from home, narcotics counted. Charge nurse made aware.
[2019-02-10 23:39] LABS: ANION GAP 7 mmol/L (5-15); BLOOD UREA NITROGEN 13 mg/dL (7-18); CALCIUM 8.5 MG/DL (8.5-10.1); CARBON DIOXIDE 27 MMOL/L (21-32); CHLORIDE 103 MMOL/L (98-107); POTASSIUM 3.9 MMOL/L (3.5-5.1); SODIUM 136 MMOL/L (136-145)
[2019-02-11] VITALS: BP 111/62
[2019-02-11 04:00] VITALS: BP 99/50
--- NOTE | 2019-02-11 06:10 | NUR ---
NURSE NOTES: Pt. sleeping in bed. No signs of shortness of breath or respiratory distress at this time. Pt. reported 6/10 pain after medication intervention, tolerable. Will continue to monitor.
--- NOTE | 2019-02-11 07:08 | NUR ---
NURSE NOTES: Medications brought to pharmacy, counted, no medications to be used during stay. Receipt inside the chart.
--- NOTE | 2019-02-11 07:44 | NUR ---
HAND-OFF: Report given to Balbir Sloan.
[2019-02-11 08:00] VITALS: BP 96/49
[2019-02-11] MEDS ORDERED: Heparin 5000 units/ml inj SUBQ SCH (09:00)
--- NOTE | 2019-02-11 09:07 | General Progress Note ---
Assessment/Plan Assessment/Plan: (1) Right axillary wound reconstruction status post excision of hidradenitis with flap reconstruction with a postoperative wound infection (2) S/p Debridement of right axillary wound and Placement of wound VAC (3) Right Axilla pain Patient will be continued on Dilaudid and started on Percocet 10/325mg PO 1 tab Q4H breakthrough pain D/w Dr. Long and he concurred. Subjective Date patient seen: Feb 11, 2019 Time patient seen: 08:00 - am Allergies: Coded Allergies: SILVER (Verified Allergy, Mild, 06/13/18) AZATHIOPRINE (Verified Allergy, Unknown, 05/15/18) DOCUSATE (Verified Allergy, Unknown, 05/15/18) ok for oral LATEX (Verified Allergy, Unknown, 05/15/18) VANCOMYCIN (Verified Allergy, Unknown, 05/15/18) BISACODYL (Verified Adverse Reaction, Severe, Rash, 05/15/18) Uncoded Allergies: IODINE CONTRAST (Allergy, Unknown, 05/15/18) TAPE (Allergy, Unknown, 05/15/18) Subjective Constitutional: Reports: no symptoms HEENT: Reports: no symptoms Cardiovascular: Reports: no symptoms Respiratory: Reports: cough Gastrointestinal/Abdominal: Reports: no symptoms Genitourinary: Reports: no symptoms Neurologic/Psychiatric: Reports: no symptoms Endocrine: Reports: no symptoms Hematologic/Lymphatic: Reports: no symptoms Subjective Patient is a known patient from recent hospital admission. She was admitted due to increased pain and due to her wound vac falling off. Was started on Dilaudid 1-2mg IV Q4H PRN mod-severe pain. We were consulted so patient has adequate pain control while here in the hospital. Objective Last 24 Hour Vital Signs Date Time Temp Pulse Resp B/P (MAP) Pulse Ox O2 Delivery O2 Flow Rate FiO2 02/11/19 04:00 97.5 68 14 99/50 (66) 95 02/11/19 00:00 97.9 69 18 111/62 (78) 100 02/10/19 22:52 Room Air 02/10/19 22:15 98.2 85 14 98/58 Room Air 02/10/19 22:05 98.2 02/10/19 20:46 98.2 85 14 98/58 Room Air 02/10/19 20:33 98.2 85 14 98/58 (71) Room Air Intake and Output 02/10/19 02/11/19 19:00 07:00 Intake Total 240 ml Balance 240 ml Intake Oral 240 ml # Voids 1 Laboratory Tests 02/10/19 23:07: White Blood Count 12.3H, Red Blood Count 4.18L, Hemoglobin 11.5L, Hematocrit 33.9L, Mean Corpuscular Volume 81, Mean Corpuscular Hemoglobin 27.4, Mean Corpuscular Hemoglobin Concent 33.8, Red Cell Distribution Width 12.6, Platelet Count 410, Mean Platelet Volume 5.6L, Neutrophils (%) (Auto) 58.6, Lymphocytes ( %) (Auto) 32.6, Monocytes (%) (Auto) 7.1, Eosinophils (%) (Auto) 0.9, Basophils (%) (Auto) 0.8, Prothrombin Time 10.7, Prothromb Time International Ratio 1.0, Activated Partial Thromboplast Time 29, Sodium Level 136, Potassium Level 3.9, Chloride Level 103, Carbon Dioxide Level 27, Anion Gap 7, Blood Urea Nitrogen 13 , Creatinine 1.0, Estimat Glomerular Filtration Rate > 60, Glucose Level 137H, Calcium Level 8.5 02/11/19 05:50: Creatine Kinase MB < 0.5 Height (Feet): 5 Height (Inches): 5.00 Weight (Pounds): 180 Objective General Appearance: no apparent distress, alert EENT: PERRL/EOMI, normal ENT inspection Neck: non-tender, normal alignment Respiratory/Chest: lungs clear, normal breath sounds Abdomen: normal bowel sounds, non tender Extremities: other - right axilla wound noted Edema: no edema noted Generalized Neurologic: alert, oriented x 3 Skin: normal pigmentation Hao Aldana Feb 11, 2019 09:07
--- NOTE | 2019-02-11 09:10 | History and Physical ---
History of Present Illness General Date patient seen: Feb 11, 2019 Reason for Hospitalization: Pain Present Illness HPI 23-year-old female with a history of hidradenitis, well known to me from previous admissions. She had a right axillary wound flap surgery and vacuum done by Dr. Brambila 2-3 weeks ago. She presents with increasing pain in that area. Been worse in the last week or so. She went to [place] a couple days ago. She waited forever and decided to leave. She was called to come back here. She said is increasing pain. Worse with movement. No fever chills. Slight drainage. 10 out of 10. Worse with movement. Better with rest. Drainage is mild. Denies any fever chills. Her wound vac fell off. Past Medical History: Crohn's s/p colectomy in 2014 on Remicade, Depression, Anxiety Past Surgical History: hydradenitis, colectomy in 2014 Social history: Denies smoking cigarettes, marijuana or other illicit drugs. 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 Family history: Depression and anxiety, cousin with Crohn's Allergies: Coded Allergies: SILVER (Verified Allergy, Mild, 06/13/18) AZATHIOPRINE (Verified Allergy, Unknown, 05/15/18) DOCUSATE (Verified Allergy, Unknown, 05/15/18) ok for oral LATEX (Verified Allergy, Unknown, 05/15/18) VANCOMYCIN (Verified Allergy, Unknown, 05/15/18) BISACODYL (Verified Adverse Reaction, Severe, Rash, 05/15/18) Uncoded Allergies: IODINE CONTRAST (Allergy, Unknown, 05/15/18) TAPE (Allergy, Unknown, 05/15/18) Medication History Scheduled Aripiprazole* (Abilify*), 5 MG ORAL DAILY, (Reported) Cephalexin* (Keflex*), 500 MG ORAL EVERY 6 HOURS Doxycycline Hyclate (Doxycycline Hyclate), 100 MG PO BID Hydromorphone Hcl (Hydromorphone Hcl), 2 MG ORAL EVERY 6 HOURS, (Reported) Omeprazole Magnesium (Prilosec Otc), 20 MG ORAL DAILY, (Reported) Scheduled PRN Oxycodone Hcl/Acetaminophen 10-325 Mg Tablet (Percocet 10-325 Mg Tablet*), 1 TAB ORAL Q4H PRN for For Pain, (Reported) Discontinued Medications Clonidine Hcl* (Catapres*), 0.1 MG ORAL EVERY 8 HOURS PRN for WITHDRAWAL SYMPTOMS, (Reported) Discontinued Reason: Pt stopped taking med Fluoxetine Hcl* (Fluoxetine Hcl*), 40 MG ORAL DAILY, (Reported) Discontinued Reason: Pt stopped taking med Patient History Healthcare decision maker Resuscitation status Full Code Advanced Directive on File Review of Systems Constitutional: Reports: other - 10/30 pain R axilla Eye: Denies: no symptoms, see HPI, eye pain, blurred vision, tearing, double vision, nose pain, nose congestion, acuity changes, discharge, other ENT: Denies: no symptoms, see HPI, ear pain, ear discharge, nose pain, nose congestion, throat pain, throat swelling, mouth pain, hearing loss, nasal discharge, other Respiratory: Denies: no symptoms, see HPI, cough, orthopnea, shortness of breath, stridor, wheezing, LISA, sputum, other Cardiovascular: Denies: no symptoms, see HPI, chest pain, edema, palpitations, syncope, PND, other Gastrointestinal: Denies: no symptoms, see HPI, abdominal pain, constipation, diarrhea, nausea, vomiting, melena, hematemesis, other Genitourinary: Denies: no symptoms, see HPI, discharge, dysuria, frequency, hematuria, pain, retention, incontinence, urgency, vag bleed/dc, other Musculoskeletal: Denies: no symptoms, see HPI, back pain, gout, joint pain, joint swelling, muscle pain, muscle stiffness, other Skin: Denies: no symptoms, see HPI, rash, change in color, change in hair/nails , dryness, lesions, other Psychiatric: Denies: no symptoms, see HPI, prior hx, anxiety, depressed feelings, emotional problems, SI, HI, hallucinations, other Neurological: Denies: no symptoms, see HPI, headache, numbness, paresthesia, seizure, tingling, tremors, focal weakness, syncope, dizziness, other Endocrine: Denies: no symptoms, see HPI, excessive sweating, flushing, intolerance to temperature, increased thirst, increased urine, unexplained weight loss, other Hematologic/Lymphatic: Denies: no symptoms, see HPI, anemia, blood clots, easy bleeding, easy bruising, swollen glands, diathesis, other Physical Exam Physical Exam Narrative General Appearance: well appearing, no apparent distress, alert Head: normocephalic, atraumatic Eyes: bilateral eye PERRL, bilateral eye EOMI ENT: hearing grossly normal, normal pharynx Neck: full range of motion, supple, no meningismus Respiratory: chest non-tender, lungs clear, normal breath sounds Cardiovascular : regular rate, rhythm, no murmur Gastrointestinal: normal bowel sounds, non tender, no mass, no organomegaly, no bruit, non-distended Musculoskeletal: back normal, normal range of motion, gait/station normal, tender - Right axillary: wound with good granulation tissue. There is some dehiscent. There is slight drainage at the central location where the wound VAC was. Mild erythema. Psychiatric: mood/affect normal Last 24 Hour Vital Signs Date Time Temp Pulse Resp B/P (MAP) Pulse Ox O2 Delivery O2 Flow Rate FiO2 02/11/19 04:00 97.5 68 14 99/50 (66) 95 02/11/19 00:00 97.9 69 18 111/62 (78) 100 02/10/19 22:52 Room Air 02/10/19 22:15 98.2 85 14 98/58 Room Air 02/10/19 22:05 98.2 02/10/19 20:46 98.2 85 14 98/58 Room Air 02/10/19 20:33 98.2 85 14 98/58 (71) Room Air Intake and Output 02/10/19 02/11/19 19:00 07:00 Intake Total 240 ml Balance 240 ml Intake Oral 240 ml # Voids 1 Laboratory Tests Test 02/10/19 23:07 02/11/19 05:50 White Blood Count 12.3 K/UL (4.8-10.8) H Red Blood Count 4.18 M/UL (4.20-5.40) L Hemoglobin 11.5 G/DL (12.0-16.0) L Hematocrit 33.9 % (37.0-47.0) L Mean Corpuscular Volume 81 FL (80-99) Mean Corpuscular Hemoglobin 27.4 PG (27.0-31.0) Mean Corpuscular Hemoglobin Concent 33.8 G/DL (32.0-36.0) Red Cell Distribution Width 12.6 % (11.6-14.8) Platelet Count 410 K/UL (150-450) Mean Platelet Volume 5.6 FL (6.5-10.1) L Neutrophils (%) (Auto) 58.6 % (45.0-75.0) Lymphocytes (%) (Auto) 32.6 % (20.0-45.0) Monocytes (%) (Auto) 7.1 % (1.0-10.0) Eosinophils (%) (Auto) 0.9 % (0.0-3.0) Basophils (%) (Auto) 0.8 % (0.0-2.0) Prothrombin Time 10.7 SEC (9.30-11.50) Prothromb Time International Ratio 1.0 (0.9-1.1) Activated Partial Thromboplast Time 29 SEC (23-33) Sodium Level 136 MMOL/L (136-145) Potassium Level 3.9 MMOL/L (3.5-5.1) Chloride Level 103 MMOL/L (98-107) Carbon Dioxide Level 27 MMOL/L (21-32) Anion Gap 7 mmol/L (5-15) Blood Urea Nitrogen 13 mg/dL (7-18) Creatinine 1.0 MG/DL (0.55-1.30) Estimat Glomerular Filtration Rate > 60 mL/min (>60) Glucose Level 137 MG/DL (74-106) H Calcium Level 8.5 MG/DL (8.5-10.1) Creatine Kinase MB < 0.5 NG/ML (0.0-3.6) Height (Feet): 5 Height (Inches): 5.00 Weight (Pounds): 180 Medications Current Medications Medications (Trade) Dose Ordered Sig/Alix Route PRN Reason Start Time Stop Time Status Last Admin Dose Admin Acetaminophen (Tylenol) 650 mg Q4H PRN ORAL Mild Pain (Pain Scale 1-3) 02/10/19 21:45 03/12/19 21:44 Acetaminophen (Tylenol) 650 mg Q4H PRN ORAL T>100.5 02/10/19 21:45 03/12/19 21:44 Albuterol/ Ipratropium (Albuterol/ Ipratropium) 3 ml Q4H PRN HHN Shortness of Breath 02/10/19 21:45 02/15/19 21:44 Dextrose (Dextrose 50%) 25 ml Q30M PRN IV Hypoglycemia 02/10/19 21:45 03/12/19 21:44 Dextrose (Dextrose 50%) 50 ml Q30M PRN IV Hypoglycemia 02/10/19 21:45 03/12/19 21:44 Diphenhydramine HCl (Benadryl) 25 mg Q6H PRN ORAL Itching/Pruritis 02/10/19 21:45 03/12/19 21:44 02/11/19 03:45 Famotidine (Pepcid) 20 mg BID ORAL 02/11/19 09:00 03/13/19 08:59 02/11/19 08:32 Heparin Sodium (Porcine) (Heparin 5000 units/ml) 5,000 units EVERY 12 HOURS SUBQ 02/11/19 09:00 03/13/19 08:59 02/11/19 08:34 Hydromorphone HCl (Dilaudid) 1 mg Q4H PRN IVP Moderate Pain (Pain Scale 4-6) 02/10/19 21:45 02/17/19 21:44 02/11/19 03:46 Hydromorphone HCl (Dilaudid) 2 mg Q4H PRN IVP Severe Pain (Pain Scale 7-10) 02/10/19 21:45 02/17/19 21:44 02/11/19 08:32 Polyethylene Glycol (Miralax) 17 gm HSPRN PRN ORAL Constipation 02/10/19 21:45 03/12/19 21:44 Assessment/Plan Problem List: (1) Post-operative pain ICD Codes: G89.18 - Other acute postprocedural pain SNOMED: 337296146 (2) Opioid use disorder, moderate, dependence ICD Codes: F11.20 - Opioid dependence, uncomplicated SNOMED: 84241096 (3) Crohns disease ICD Codes: K50.90 - Crohn's disease, unspecified, without complications SNOMED: 47035305 (4) Anxiety ICD Codes: F41.9 - Anxiety disorder, unspecified SNOMED: 54185929 (5) Depression ICD Codes: F32.9 - Major depressive disorder, single episode, unspecified SNOMED: 75072517 (6) Anemia ICD Codes: D64.9 - Anemia, unspecified SNOMED: 518934031 Status: stable Assessment/Plan: Admit to med surg for intractable pain Pain control Pain management consult Plastic surgery consult with Dr. Brambila for evaluation of the wound Resume all home meds continue to hold remicade she is s/p antibiotics, would does not look infected, will hold off vte and GI ppx: heparin and pantoprazole Plan of care d/w ED physician, patient and Dr. Brambila I spent 70 minutes on this encounter. > 50% spent on counselling and care coordination Isidro Johnson M.D. Feb 11, 2019 09:10
--- NOTE | 2019-02-11 10:52 | Discharge Summary ---
Discharge Summary Hospital Course Date of Admission Feb 10, 2019 at 21:15 Date of Discharge 02/11/2019 Admitting Diagnosis Post op wound infection/pain HPI Kenzie Caruso is a 23 year old female who was admitted on Feb 10, 2019 at 21:15 for Post Op Wound Infection/Pain Consultations Plastic surgery: Dr. Brambila pain management: Dr. Long Hospital Course 23-year-old female with a history of hidradenitis, well known to me from previous admissions. She had a right axillary wound flap surgery and vacuum done by Dr. Brambila 2-3 weeks ago. She presents with increasing pain in that area. Been worse in the last week or so. She went to [place] a couple days ago. She waited forever and decided to leave. She was called to come back here. She said is increasing pain. Worse with movement. No fever chills. Slight drainage. 10 out of 10. Worse with movement. Better with rest. Drainage is mild. Denies any fever chills. Her wound vac fell off. She was admitted to med surg for intractable pain Pain control Pain management consult Plastic surgery consult with Dr. Brambila for evaluation of the wound Resume all home meds continue to hold remicade she is s/p antibiotics, would does not look infected, will hold off vte and GI ppx: heparin and pantoprazole Plan of care d/w ED physician, patient and Dr. Brambila She was seen by plastics, wound looks okay and no need for wound vac reinsertion. Seen by pain management. She marqusie be discharged home on PO pain meds. She will see her own pain management doctor as outpatient. Discharge Medications Continued Medications: Aripiprazole* (Abilify*) 2 Mg Tablet 5 MG ORAL DAILY Hydromorphone Hcl (Hydromorphone Hcl) 2 Mg Tablet 2 MG ORAL EVERY 6 HOURS for 4 Days, #20 TAB 0 Refills Omeprazole Magnesium (Prilosec Otc) 20 Mg Tablet.dr 20 MG ORAL DAILY, TAB Oxycodone Hcl/Acetaminophen 10-325 Mg Tablet (Percocet 10-325 Mg Tablet*) 1 Each Tablet 1 TAB ORAL Q4H PRN for For Pain DISPENSED ON 01/15/19 Discontinued Medications: Cephalexin* (Keflex*) 500 Mg Capsule 500 MG ORAL EVERY 6 HOURS for 7 Days, #28 CAP Doxycycline Hyclate (Doxycycline Hyclate) 100 Mg Tablet. 100 MG PO BID for 7 Days, #14 TAB Discharge Condition Upon Discharge: stable Discharge Disposition Patient was discharged to home with home health Discharge Diagnoses: (1) Post-operative pain (2) Opioid use disorder, moderate, dependence (3) Depression (4) Crohns disease (5) Anxiety (6) Anemia Isidro Johnson M.D. Feb 11, 2019 10:52
--- NOTE | 2019-02-11 11:07 | NUR ---
CASE MANAGEMENT:REVIEW 23 YR OLD FEMALE PRESENTED TO ER CC: POST OP PAIN SI:POST OP WOUND INFECTION. PAIN 98.3 85 14 98/58 WBC+12.3 H/H-11.5/33.9 GLUCOSE+137 IS: IV DILAUDID IV ROCEPHIN IV ZOFRAN : TO MED/SURG [facility] IS: IV DILAUDID Q4HRS PERCOCET PO Q4HRS PRN
[2019-02-11 12:00] VITALS: BP 106/60
[2019-02-11] MEDS ORDERED: D5 1/2NS 1000ml IV ONE (15:42)
--- NOTE | 2019-02-11 15:50 | NUR ---
NURSE NOTES: Patient has been dsicharged to home, left by [employer]. Patient signed off belongings list and left with all her belongings including the 2 plastic bags containing own meds, unopened, stored at the pharmacy. Taken IV access, no bleeding after site compression. Given discharge packet with medication reconciliation, follow up dr information and pamphlet regarding her condition. Patient self notified father, nurse witness.
== END 2019-02-11 15:43 | disposition home or self-care (01) | DRG 948 ==
LOC: EMR 21:10 → 4E 21:15 → EDBEDREQ 21:36
DX: G89.18 Other acute postprocedural pain (principal); F11.20 Opioid dependence, uncomplicated; K50.90 Crohn's disease, unspecified, without complications; Z98.890 Other specified postprocedural states; Z88.8 Allergy status to other drugs, medicaments and biological substances; Z91.041 Radiographic dye allergy status; Z91.040 Latex allergy status; F41.9 Anxiety disorder, unspecified; F32.9 Major depressive disorder, single episode, unspecified; D64.9 Anemia, unspecified
CPT/HCPCS: 36415; 80048; 82553; 85025; 85610; 85730; 96365; 96375; 99285; J2405; J7030

== ENCOUNTER 2019-03-15 11:36 | Inpatient (IN) | payer OTHER ==
[~2019-03-15] VITALS: Ht 165.1 cm; Wt 99.6 kg
[2019-03-15 12:06] VITALS: BP 116/72
[2019-03-15] MEDS ORDERED: HYDROmorphone 1mg/ml Carpuject IVP ONE (12:15)
[2019-03-15 13:01] LABS: EOSINOPHILS % (AUTO) 0.1 % (0.0-3.0); HEMATOCRIT 36.7 % (37.0-47.0); HEMOGLOBIN 12.5 G/DL (12.0-16.0); LYMPHOCYTES % (AUTO) 26.3 % (20.0-45.0); MEAN CORPUSCULAR VOLUME 79 FL (80-99); MONOCYTES % (AUTO) 5.9 % (1.0-10.0); NEUTROPHILS % (AUTO) 61.7 % (45.0-75.0); PLATELET COUNT 251 K/UL (150-450); RED BLOOD COUNT 4.67 M/UL (4.20-5.40); RED CELL DISTRIBUTION WIDTH 14.6 % (11.6-14.8); WHITE BLOOD COUNT 11.9 K/UL (4.8-10.8)
[2019-03-15 13:07] LABS: ANION GAP 11 mmol/L (5-15); BLOOD UREA NITROGEN 11 mg/dL (7-18); CALCIUM 8.7 MG/DL (8.5-10.1); CARBON DIOXIDE 24 MMOL/L (21-32); CHLORIDE 106 MMOL/L (98-107); CREATININE 0.8 MG/DL (0.55-1.30); POTASSIUM 4.4 MMOL/L (3.5-5.1); SODIUM 141 MMOL/L (136-145)
[2019-03-15] MEDS: HYDROmorphone 1 MG, DiphenhydrAMINE 25 MG in NS 55 ML IV ONE ×2 (13:30→14:56)
[2019-03-15] MEDS ORDERED: DiphenhydrAMINE 50mg/ml Inj ONE (13:38)
[2019-03-15] MEDS ORDERED: DiphenhydrAMINE 50mg/ml Inj IVP ONE ×2 (13:45→19:45)
[2019-03-15] MEDS ORDERED: HYDROmorphone 1mg/ml Carpuject ONE ×2 (13:53→14:51)
--- NOTE | 2019-03-15 14:26 | History and Physical ---
History of Present Illness General Date patient seen: Mar 15, 2019 Reason for Hospitalization: Wound Recheck/Suture Removal Present Illness HPI 23 year old female well known to me from previous admissions for right axillary infection, hidradenitis suppurativa s/p debridement on 01/22/19, s/p wound vac and flap closure by Dr. Brambila now presents with severe intractable pain. Seen by her pain management doctor who referred her to the ER for evaluation of her wound. She has noticed greenish foul smelling discharge from the wound opening site for the past 2 days. Denies any fever or chills. She has crohns but has not been on biologics to let her wound heal. Denies diarrhea. Recently had a right ear infection and received antibiotics for this, but her ear still hurts. Her previous wound culture from right axilla grew group C streptococcus. She was discharged on Keflex and doxycycline and finished the course. She is allergic to Vancomycin, daptomycin and clindamycin. Past Medical History: Crohn's s/p colectomy in 2014 on Remicade, Depression, Anxiety Past Surgical History: hydradenitis, colectomy in 2014 Social history: Denies smoking cigarettes, marijuana or other illicit drugs. 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 Family history: Depression and anxiety, cousin with Crohn's Allergies: Coded Allergies: SILVER (Verified Allergy, Mild, 06/13/18) AZATHIOPRINE (Verified Allergy, Unknown, 05/15/18) DOCUSATE (Verified Allergy, Unknown, 05/15/18) ok for oral LATEX (Verified Allergy, Unknown, 05/15/18) VANCOMYCIN (Verified Allergy, Unknown, 05/15/18) BISACODYL (Verified Adverse Reaction, Severe, Rash, 05/15/18) Uncoded Allergies: IODINE CONTRAST (Allergy, Unknown, 05/15/18) TAPE (Allergy, Unknown, 05/15/18) Medication History Scheduled Aripiprazole* (Abilify*), 5 MG ORAL DAILY, (Reported) Fluoxetine Hcl* (Prozac*), 40 MG ORAL DAILY, (Reported) Hydromorphone Hcl (Hydromorphone Hcl), 2 MG ORAL EVERY 6 HOURS, (Reported) Omeprazole Magnesium (Prilosec Otc), 20 MG ORAL DAILY, (Reported) Scheduled PRN Oxycodone Hcl/Acetaminophen 10-325 Mg Tablet (Percocet 10-325 Mg Tablet*), 1 TAB ORAL Q4H PRN for For Pain, (Reported) Patient History Healthcare decision maker Resuscitation status Advanced Directive on File Review of Systems Constitutional: Reports: other - 11/29 right axilla pain Eye: Denies: no symptoms, see HPI, eye pain, blurred vision, tearing, double vision, nose pain, nose congestion, acuity changes, discharge, other ENT: Reports: ear pain - right ear pain Respiratory: Denies: no symptoms, see HPI, cough, orthopnea, shortness of breath, stridor, wheezing, LISA, sputum, other Cardiovascular: Denies: no symptoms, see HPI, chest pain, edema, palpitations, syncope, PND, other Gastrointestinal: Denies: no symptoms, see HPI, abdominal pain, constipation, diarrhea, nausea, vomiting, melena, hematemesis, other Genitourinary: Denies: no symptoms, see HPI, discharge, dysuria, frequency, hematuria, pain, retention, incontinence, urgency, vag bleed/dc, other Musculoskeletal: Denies: no symptoms, see HPI, back pain, gout, joint pain, joint swelling, muscle pain, muscle stiffness, other Skin: Reports: other - sligh topening to wound, green foul smelling discharge Psychiatric: Denies: no symptoms, see HPI, prior hx, anxiety, depressed feelings, emotional problems, SI, HI, hallucinations, other Neurological: Denies: no symptoms, see HPI, headache, numbness, paresthesia, seizure, tingling, tremors, focal weakness, syncope, dizziness, other Endocrine: Denies: no symptoms, see HPI, excessive sweating, flushing, intolerance to temperature, increased thirst, increased urine, unexplained weight loss, other Hematologic/Lymphatic: Denies: no symptoms, see HPI, anemia, blood clots, easy bleeding, easy bruising, swollen glands, diathesis, other Physical Exam General Appearance: severe distress - due to pain , obese Lines, tubes and drains: peripheral HEENT: normocephalic, atraumatic, anicteric, mucous membranes moist, PERRL, EOMI, other - right ear: +light reflex, erythema Neck: non-tender, supple Respiratory/Chest: chest wall non-tender, lungs clear, normal breath sounds, no respiratory distress, no accessory muscle use Cardiovascular/Chest: normal peripheral pulses, normal rate, regular rhythm, no JVD Abdomen: non tender, soft, no mass Extremities: normal range of motion, non-tender Skin Exam: other - right axilla: small opening to wound, otherwise healed well , no discharge. 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, no motor/sensory deficits, oriented x 3 Musculoskeletal: normal muscle bulk Last 24 Hour Vital Signs Date Time Temp Pulse Resp B/P (MAP) Pulse Ox O2 Delivery O2 Flow Rate FiO2 03/15/19 12:06 98.5 83 18 116/72 99 Room Air 03/15/19 11:45 98.2 91 18 104/64 (77) 98 Room Air Laboratory Tests Test 03/15/19 12:50 White Blood Count 11.9 K/UL (4.8-10.8) H Red Blood Count 4.67 M/UL (4.20-5.40) Hemoglobin 12.5 G/DL (12.0-16.0) Hematocrit 36.7 % (37.0-47.0) L Mean Corpuscular Volume 79 FL (80-99) L Mean Corpuscular Hemoglobin 26.7 PG (27.0-31.0) L Mean Corpuscular Hemoglobin Concent 34.0 G/DL (32.0-36.0) Red Cell Distribution Width 14.6 % (11.6-14.8) Platelet Count 251 K/UL (150-450) Mean Platelet Volume 5.5 FL (6.5-10.1) L Neutrophils (%) (Auto) 61.7 % (45.0-75.0) Lymphocytes (%) (Auto) 26.3 % (20.0-45.0) Monocytes (%) (Auto) 5.9 % (1.0-10.0) Eosinophils (%) (Auto) 0.1 % (0.0-3.0) Basophils (%) (Auto) 6.0 % (0.0-2.0) H Sodium Level 141 MMOL/L (136-145) Potassium Level 4.4 MMOL/L (3.5-5.1) Chloride Level 106 MMOL/L (98-107) Carbon Dioxide Level 24 MMOL/L (21-32) Anion Gap 11 mmol/L (5-15) Blood Urea Nitrogen 11 mg/dL (7-18) Creatinine 0.8 MG/DL (0.55-1.30) Estimat Glomerular Filtration Rate > 60 mL/min (>60) Glucose Level 124 MG/DL (74-106) H Calcium Level 8.7 MG/DL (8.5-10.1) Height (Feet): 5 Height (Inches): 5.00 Weight (Pounds): 180 Assessment/Plan Problem List: (1) Intractable pain ICD Codes: R52 - Pain, unspecified SNOMED: 84915467 (2) Wound cellulitis ICD Codes: L03.90 - Cellulitis, unspecified SNOMED: 986006097 (3) Opioid use disorder, moderate, dependence ICD Codes: F11.20 - Opioid dependence, uncomplicated SNOMED: 40511714 (4) Depression ICD Codes: F32.9 - Major depressive disorder, single episode, unspecified SNOMED: 43885535 (5) Crohns disease ICD Codes: K50.90 - Crohn's disease, unspecified, without complications SNOMED: 05831901 (6) Anxiety ICD Codes: F41.9 - Anxiety disorder, unspecified SNOMED: 92804816 (7) Hydradenitis ICD Codes: L73.2 - Hidradenitis suppurativa SNOMED: 15574135 Status: stable Assessment/Plan: 23 year old female with right axillary infection, hidradenitis suppurativa s/p debridement on 01/22/19, s/p wound vac and flap closure by Dr. Brambila now presents with severe intractable pain, greenish foul smelling discharge, possible sinus tract in the posterior axilla. Admit to med surg Pain control IV Dilaudid 1 mg [id number] for severe pain, Percocet 10 every 4 hours for moderate pain, Tylenol for mild pain Plastic surgery consult Dr Brambila IV antibiotics with ceftriaxone and Bactrim Wound care She is requesting IV benadryl for itching associated with pain meds vte ppx: scd boots, early ambulation I spent 70 minutes on this encounter. Greater than 50% spent on counselling and care coordination. Isidro Johnson M.D. Mar 15, 2019 14:26
[2019-03-15] MEDS ORDERED: Albuterol/Ipratropium 3ml neb HHN PRN (15:15)
[2019-03-15] MEDS: Bactrim-DS 1 tab ORAL SCH (15:55)
[2019-03-15] MEDS: cefTRIAXone 1 GM in NS 55 ML IVPB SCH (15:56)
[2019-03-15 16:00] VITALS: BP 105/74
[2019-03-15] MEDS: HYDROmorphone 1mg/NS 50ml IVPB 50 ML IVPB PRN ×2 (19:20→23:32)
[2019-03-15 19:32] VITALS: BP 110/75
[2019-03-15 21:40] VITALS: BP 91/61
[2019-03-15] MEDS: DiphenhydrAMINE 50mg/ml Inj IVP PRN (22:00)
[2019-03-15] MEDS ORDERED: PROZAC40 MG ORAL (22:08)
[2019-03-16] VITALS: BP 100/46
[2019-03-16] MEDS: DiphenhydrAMINE 50mg/ml Inj IVP PRN ×5 (02:04→20:48)
[2019-03-16] MEDS: HYDROmorphone 1mg/NS 50ml IVPB 50 ML IVPB PRN ×4 (03:31→19:58)
[2019-03-16 04:00] VITALS: BP 91/52
[2019-03-16 05:46] LABS: BASOPHILS % (AUTO) 1.2 % (0.0-2.0); EOSINOPHILS % (AUTO) 0.2 % (0.0-3.0); HEMATOCRIT 31.4 % (37.0-47.0); HEMOGLOBIN 10.6 G/DL (12.0-16.0); LYMPHOCYTES % (AUTO) 38.6 % (20.0-45.0); MEAN CORPUSCULAR VOLUME 83 FL (80-99); NEUTROPHILS % (AUTO) 52.9 % (45.0-75.0); PLATELET COUNT 322 K/UL (150-450); RED CELL DISTRIBUTION WIDTH 12.8 % (11.6-14.8); WHITE BLOOD COUNT 10.2 K/UL (4.8-10.8)
[2019-03-16 05:52] LABS: ANION GAP 7 mmol/L (5-15); BLOOD UREA NITROGEN 14 mg/dL (7-18); CALCIUM 7.4 MG/DL (8.5-10.1); CARBON DIOXIDE 25 MMOL/L (21-32); CHLORIDE 110 MMOL/L (98-107); CREATININE 0.9 MG/DL (0.55-1.30); POTASSIUM 4.5 MMOL/L (3.5-5.1); SODIUM 142 MMOL/L (136-145)
[2019-03-16 08:00] VITALS: BP 97/58
[2019-03-16] MEDS: cefTRIAXone 1 GM in NS 55 ML IVPB SCH (08:53)
[2019-03-16] MEDS: Bactrim-DS 1 tab ORAL SCH ×2 (08:54→20:48)
[2019-03-16 12:00] VITALS: BP 92/43
--- NOTE | 2019-03-16 13:30 | Consultation ---
DATE OF CONSULTATION: 03/16/2019 CONSULTING PHYSICIAN: Sagar Brambila M.D. ADMITTING PHYSICIAN: Mary Cabrera M.D. ADMITTING DIAGNOSIS: Right axillary wound associated with significant pain. HISTORY OF PRESENT ILLNESS: This is a 23-year-old female, who is well known to me, who has an extensive history of hidradenitis suppurativa as well as Crohn's disease. She has undergone previous debridements and excision of hidradenitis with reconstruction, most recently having undergone a procedure approximately six weeks ago where she underwent excision and reconstruction with flap closure of her right axillary wound. She has been having persistent pain and yesterday she informed me that she was at her doctor's office and was in significant pain and could not tolerate the pain and as a result, presented to the emergency room for management of her pain symptoms. Upon evaluation, she was noted to have an open wound associated with the axillary reconstruction that was exquisitely tender. As such, the medical team admitted her for pain management and IV antibiotics. Also she was noted to have leukocytosis with white count of nearly 12. PAST MEDICAL HISTORY: Significant for Crohn's disease and hidradenitis. PAST SURGICAL HISTORY: Significant for multiple excisions and reconstructions of axillary hidradenitis. MEDICATIONS: Include intermittent use of Remicade to control her Crohn's disease. PHYSICAL EXAMINATION: GENERAL: The patient is in mild distress. HEART: Regular rate and rhythm. ABDOMEN: Soft, nontender, and nondistended. EXTREMITIES: Examination of her extremity and trunk reveals a healing thoracodorsal artery flap with an open area that measures approximately 5 x 4 cm just anterior to the axilla with an open granulating wound that is exquisitely tender. In addition to an area in the inferior aspect of the flap and its juncture with the chest wall, which is also open with granulation tissue that is also very tender upon palpation. ASSESSMENT AND PLAN: This is a 23-year-old female, now was approximately six weeks out from reconstruction of a right axillary wound, who presented with uncontrolled pain as well as leukocytosis and an open wound. She has been on IV antibiotics and pain medication since admission and upon my evaluation, I felt that it is appropriate to perform a debridement of her open wounds followed by closure to allow for optimal healing as well as presumptive improvement of her symptoms. As I feel that the open granulating wound is causing significant tenderness and upon definitive soft tissue coverage, this should medicate her pain symptoms at some level. The plan will be to keep her on the IV antibiotics for another 24 to 48 hours and then perform definitive closure of the wound likely on Monday. This was discussed with the patient. She understands the plan and agrees to proceed. Sagar Brambila M.D. DR: NANCIE JOB#: [id number] CC: QUENTIN
[2019-03-16 16:00] VITALS: BP 114/42
[2019-03-16 20:00] VITALS: BP 101/53
--- NOTE | 2019-03-16 20:35 | General Progress Note ---
Assessment/Plan Status: stable Assessment/Plan: 3 year old female with right axillary infection, hidradenitis suppurativa s/p debridement on 01/22/19, s/p wound vac and flap closure by Dr. Brambila now presents with severe intractable pain, greenish foul smelling discharge, possible sinus tract in the posterior axilla. Admit to med surg Pain control IV Dilaudid 1 mg [id number] for severe pain, Percocet 10 every 4 hours for moderate pain, Tylenol for mild pain Plastic surgery consult Dr Brambila : plan for OR monday IV antibiotics with ceftriaxone and Bactrim Wound care She is requesting IV benadryl for itching associated with pain meds vte ppx: scd boots, early ambulation I spent 39 minutes on this encounter. Greater than 50% spent on counselling and care coordination. Subjective Date patient seen: Mar 16, 2019 Allergies: Coded Allergies: SILVER (Verified Allergy, Mild, 06/13/18) AZATHIOPRINE (Verified Allergy, Unknown, 05/15/18) DOCUSATE (Verified Allergy, Unknown, 05/15/18) ok for oral LATEX (Verified Allergy, Unknown, 05/15/18) VANCOMYCIN (Verified Allergy, Unknown, 05/15/18) BISACODYL (Verified Adverse Reaction, Severe, Rash, 05/15/18) Uncoded Allergies: IODINE CONTRAST (Allergy, Unknown, 05/15/18) TAPE (Allergy, Unknown, 05/15/18) Subjective Complains of pain on right axilla not controlled with Dilaudid Objective Last 24 Hour Vital Signs Date Time Temp Pulse Resp B/P (MAP) Pulse Ox O2 Delivery O2 Flow Rate FiO2 03/16/19 16:00 97.9 97 18 114/42 (66) 99 03/16/19 15:04 97.7 03/16/19 12:00 97.7 67 18 92/43 (59) 95 03/16/19 09:00 Room Air 03/16/19 08:00 97.7 67 18 97/58 (71) 96 03/16/19 04:00 97.9 64 16 91/52 (65) 96 03/16/19 00:00 98.4 73 16 100/46 (64) 96 03/15/19 23:44 Room Air 03/15/19 21:40 98.1 70 17 91/61 (71) 96 03/15/19 21:36 98.5 89 18 110/75 99 Room Air Intake and Output 03/15/19 03/16/19 19:00 07:00 Intake Total 55 ml 600 ml Balance 55 ml 600 ml Intake Oral 600 ml IV Total 55 ml # Voids 2 Laboratory Tests 03/16/19 05:00: White Blood Count 10.2, Red Blood Count 3.80L, Hemoglobin 10.6L, Hematocrit 31.4L, Mean Corpuscular Volume 83, Mean Corpuscular Hemoglobin 28.0, Mean Corpuscular Hemoglobin Concent 33.9, Red Cell Distribution Width 12.8, Platelet Count 322, Mean Platelet Volume 6.1L, Neutrophils (%) (Auto) 52.9, Lymphocytes ( %) (Auto) 38.6, Monocytes (%) (Auto) 7.0, Eosinophils (%) (Auto) 0.2, Basophils (%) (Auto) 1.2, Sodium Level 142, Potassium Level 4.5, Chloride Level 110H, Carbon Dioxide Level 25, Anion Gap 7, Blood Urea Nitrogen 14, Creatinine 0.9, Estimat Glomerular Filtration Rate > 60, Glucose Level 139H, Calcium Level 7.4L Height (Feet): 5 Height (Inches): 5.00 Weight (Pounds): 180 Objective GENERAL: No acute distress, appears comfortable, alert HEENT: NCAT, non-icteric eyes, pupils PERRLA Neck: No cervical lymphadenopathy, trachea midline CV: Regular rate and rhythm, no murmurs rubs or gallops RESP: Clear to auscultation bilaterally, no wheezes/rhonchi/crackles ABD: soft, non-distended, no TTP EXT: Right axilla with 2 cm wound no drainage, no surrounding erythema, much tenderness NEURO: No obvious deficits, alert and oriented x3 Antonina Burleson DO Mar 16, 2019 20:35
[2019-03-17] VITALS: BP 99/58
[2019-03-17] MEDS: HYDROmorphone 1mg/NS 50ml IVPB 50 ML IVPB PRN ×6 (00:01→21:56)
[2019-03-17] MEDS: DiphenhydrAMINE 50mg/ml Inj IVP PRN ×6 (00:59→22:23)
[2019-03-17 04:46] VITALS: BP 99/74
[2019-03-17 08:00] VITALS: BP 95/60
--- NOTE | 2019-03-17 08:12 | Emergency Room Report ---
History of Present Illness General Chief Complaint: Wound Recheck/Suture Removal Source: Patient, Medical Record Present Illness HPI Patient has had extensive history with previous surgery Now reports that there has been continued dehiscence of the right axilla region after surgery patient has increased pain in reports that 2 days ago noticed increased discharge and foul smell Denies any chest pain denies any vomiting patient does have subjective low- grade fever Denies any other rash pain is 10 out of 10 worse with touch Allergies: Coded Allergies: SILVER (Verified Allergy, Mild, 06/13/18) AZATHIOPRINE (Verified Allergy, Unknown, 05/15/18) DOCUSATE (Verified Allergy, Unknown, 05/15/18) ok for oral LATEX (Verified Allergy, Unknown, 05/15/18) VANCOMYCIN (Verified Allergy, Unknown, 05/15/18) BISACODYL (Verified Adverse Reaction, Severe, Rash, 05/15/18) Uncoded Allergies: IODINE CONTRAST (Allergy, Unknown, 05/15/18) TAPE (Allergy, Unknown, 05/15/18) Patient History Past Medical History: see triage record Last Menstrual Period: 03/09/19 Now: No : 0 Reviewed Nursing Documentation: PMH: Agreed; PSxH: Agreed Nursing Documentation-PMH Past Medical History: No History, Except For Hx Cardiac Problems: No Hx Hypertension: No Hx Pacemaker: No Hx Asthma: No Hx COPD: No Hx Diabetes: No Hx Cancer: No Hx Gastrointestinal Problems: Yes - C-diff 3 years ago Hx Dialysis: No History Of Psychiatric Problem: No Hx Neurological Problems: No Hx Cerebrovascular Accident: No Hx Seizures: No Review of Systems All Other Systems: negative except mentioned in HPI Physical Exam Vital Signs Date Time Temp Pulse Resp B/P (MAP) Pulse Ox O2 Delivery O2 Flow Rate FiO2 03/15/19 11:45 98.2 91 18 104/64 (77) 98 Room Air Sp02 EP Interpretation: reviewed, normal General Appearance: mild distress - In pain Head: normocephalic, atraumatic Eyes: bilateral eye PERRL, bilateral eye EOMI ENT: EOM grossly intact, normal pharynx Neck: supple, no meningismus Respiratory: lungs clear, no retraction, no accessory muscle use Cardiovascular #1: regular rate, rhythm Gastrointestinal: non tender, soft Musculoskeletal: normal inspection Neurologic: alert, oriented x3 Psychiatric: normal inspection Skin: other - There is evidence of dehiscence laterally on the right axilla on 2 separate locations there is mild fullness palpable and there is foul-smelling discharge noted Lymphatic: no adenopathy Medical Decision Making Diagnostic Impression: Primary Impression: Wound cellulitis ER Course Given the history and presentation consideration for secondary infection is noted patient has broad-spectrum Blood work initiated pain medication Patient is fairly complex and further antibiotic coverage will be deferred to infectious disease and specialty inpatient care And patient admitted for further evaluation Labs Test 03/15/19 12:50 03/16/19 05:00 White Blood Count 11.9 K/UL (4.8-10.8) 10.2 K/UL (4.8-10.8) Red Blood Count 4.67 M/UL (4.20-5.40) 3.80 M/UL (4.20-5.40) Hemoglobin 12.5 G/DL (12.0-16.0) 10.6 G/DL (12.0-16.0) Hematocrit 36.7 % (37.0-47.0) 31.4 % (37.0-47.0) Mean Corpuscular Volume 79 FL (80-99) 83 FL (80-99) Mean Corpuscular Hemoglobin 26.7 PG (27.0-31.0) 28.0 PG (27.0-31.0) Mean Corpuscular Hemoglobin Concent 34.0 G/DL (32.0-36.0) 33.9 G/DL (32.0-36.0) Red Cell Distribution Width 14.6 % (11.6-14.8) 12.8 % (11.6-14.8) Platelet Count 251 K/UL (150-450) 322 K/UL (150-450) Mean Platelet Volume 5.5 FL (6.5-10.1) 6.1 FL (6.5-10.1) Neutrophils (%) (Auto) 61.7 % (45.0-75.0) 52.9 % (45.0-75.0) Lymphocytes (%) (Auto) 26.3 % (20.0-45.0) 38.6 % (20.0-45.0) Monocytes (%) (Auto) 5.9 % (1.0-10.0) 7.0 % (1.0-10.0) Eosinophils (%) (Auto) 0.1 % (0.0-3.0) 0.2 % (0.0-3.0) Basophils (%) (Auto) 6.0 % (0.0-2.0) 1.2 % (0.0-2.0) Sodium Level 141 MMOL/L (136-145) 142 MMOL/L (136-145) Potassium Level 4.4 MMOL/L (3.5-5.1) 4.5 MMOL/L (3.5-5.1) Chloride Level 106 MMOL/L (98-107) 110 MMOL/L (98-107) Carbon Dioxide Level 24 MMOL/L (21-32) 25 MMOL/L (21-32) Anion Gap 11 mmol/L (5-15) 7 mmol/L (5-15) Blood Urea Nitrogen 11 mg/dL (7-18) 14 mg/dL (7-18) Creatinine 0.8 MG/DL (0.55-1.30) 0.9 MG/DL (0.55-1.30) Estimat Glomerular Filtration Rate > 60 mL/min (>60) > 60 mL/min (>60) Glucose Level 124 MG/DL (74-106) 139 MG/DL (74-106) Calcium Level 8.7 MG/DL (8.5-10.1) 7.4 MG/DL (8.5-10.1) Last Vital Signs Date Time Temp Pulse Resp B/P (MAP) Pulse Ox O2 Delivery O2 Flow Rate FiO2 03/17/19 04:58 98.1 03/17/19 04:46 64 18 99/74 (82) 98 03/16/19 21:49 Room Air Status: improved Disposition: ADMITTED INPATIENT Condition: Serious Referrals: NON PHYSICIAN (PCP) Juan Bright DO Mar 17, 2019 08:12
[2019-03-17] MEDS: cefTRIAXone 1 GM in NS 55 ML IVPB SCH (08:59)
[2019-03-17] MEDS: Bactrim-DS 1 tab ORAL SCH ×2 (09:01→20:42)
[2019-03-17 12:00] VITALS: BP 96/90
[2019-03-17] MEDS ORDERED: NS 275ml ONE (13:20)
[2019-03-17 16:00] VITALS: BP 102/60
[2019-03-17 20:00] VITALS: BP 109/64
[2019-03-17] MEDS: Hydromorphone 0.5mg/0.5ml inj IVP PRN ×2 (20:48→23:50)
--- NOTE | 2019-03-17 22:57 | General Progress Note ---
Assessment/Plan Status: stable Assessment/Plan: 3 year old female with right axillary infection, hidradenitis suppurativa s/p debridement on 01/22/19, s/p wound vac and flap closure by Dr. Brambila now presents with severe intractable pain, greenish foul smelling discharge, possible sinus tract in the posterior axilla. Admit to med surg Pain control IV Dilaudid 1 mg [id number] for severe pain, Percocet 10 every 4 hours for moderate pain, Tylenol for mild pain Plastic surgery consult Dr Brambila : plan for OR monday IV antibiotics with ceftriaxone and Bactrim Wound care She is requesting IV benadryl for itching associated with pain meds vte ppx: scd boots, early ambulation - in regarding to new abd pain that patient correlates to a UC flare; ctm, check cbc and bmp in am, if pain persists will consider GI consult I spent 39 minutes on this encounter. Greater than 50% spent on counselling and care coordination. Subjective Date patient seen: Mar 17, 2019 Allergies: Coded Allergies: SILVER (Verified Allergy, Mild, 06/13/18) AZATHIOPRINE (Verified Allergy, Unknown, 05/15/18) DOCUSATE (Verified Allergy, Unknown, 05/15/18) ok for oral LATEX (Verified Allergy, Unknown, 05/15/18) VANCOMYCIN (Verified Allergy, Unknown, 05/15/18) BISACODYL (Verified Adverse Reaction, Severe, Rash, 05/15/18) Uncoded Allergies: IODINE CONTRAST (Allergy, Unknown, 05/15/18) TAPE (Allergy, Unknown, 05/15/18) Subjective Complains of pain on right axilla not controlled with Dilaudid per RN patient sets a timer in order to request dilaudid c/o severe mid/right LQ abd pain that she associates with a UC flare because pain is very severe. Denies diarrhea. Patient has history of ileal resection for UC. Denies any other abd surgeries. no labs this am. No n, v, fevers, drainage from right axillary wound Objective Last 24 Hour Vital Signs Date Time Temp Pulse Resp B/P (MAP) Pulse Ox O2 Delivery O2 Flow Rate FiO2 03/17/19 18:02 98.2 03/17/19 16:00 98.3 82 18 102/60 (74) 96 1/26/20 12:00 98.2 68 18 96/90 (92) 97 03/17/19 09:00 Room Air 03/17/19 08:00 97.6 68 18 95/60 (72) 97 03/17/19 04:46 98.1 64 18 99/74 (82) 98 03/17/19 00:00 98.7 73 20 99/58 (72) 98 Intake and Output 03/16/19 03/17/19 19:00 07:00 Intake Total 400 ml Balance 400 ml Intake Oral 400 ml # Voids 1 Height (Feet): 5 Height (Inches): 5.00 Weight (Pounds): 180 Objective GENERAL: No acute distress, appears comfortable, alert HEENT: NCAT, non-icteric eyes, pupils PERRLA Neck: No cervical lymphadenopathy, trachea midline CV: Regular rate and rhythm, no murmurs rubs or gallops RESP: Clear to auscultation bilaterally, no wheezes/rhonchi/crackles ABD: soft, non-distended, + TTP, no mcburney's point, no murphys sign EXT: Right axilla with 2 cm wound no drainage, no surrounding erythema, much tenderness NEURO: No obvious deficits, alert and oriented x3 Antonina Burleson DO Mar 17, 2019 22:57
[2019-03-18] VITALS (16 sets, daily range): BP systolic 95–140; BP diastolic 43–74
[2019-03-18] MEDS: DiphenhydrAMINE 50mg/ml Inj IVP PRN ×5 (02:31→20:18)
[2019-03-18] MEDS: HYDROmorphone 1mg/NS 50ml IVPB 50 ML IVPB PRN ×2 (03:37→10:13)
[2019-03-18] MEDS: Hydromorphone 0.5mg/0.5ml inj IVP PRN ×3 (05:24→20:59)
[2019-03-18 06:30] LABS: BASOPHILS % (AUTO) 0.7 % (0.0-2.0); EOSINOPHILS % (AUTO) 0.9 % (0.0-3.0); HEMATOCRIT 36.5 % (37.0-47.0); HEMOGLOBIN 12.3 G/DL (12.0-16.0); LYMPHOCYTES % (AUTO) 27.7 % (20.0-45.0); MEAN CORPUSCULAR VOLUME 81 FL (80-99); MONOCYTES % (AUTO) 7.5 % (1.0-10.0); NEUTROPHILS % (AUTO) 63.2 % (45.0-75.0); PLATELET COUNT 379 K/UL (150-450); RED BLOOD COUNT 4.49 M/UL (4.20-5.40); RED CELL DISTRIBUTION WIDTH 12.7 % (11.6-14.8); WHITE BLOOD COUNT 12.5 K/UL (4.8-10.8)
[2019-03-18 07:16] LABS: ANION GAP 9 mmol/L (5-15); BLOOD UREA NITROGEN 10 mg/dL (7-18); CALCIUM 8.1 MG/DL (8.5-10.1); CARBON DIOXIDE 24 MMOL/L (21-32); CHLORIDE 105 MMOL/L (98-107); POTASSIUM 4.1 MMOL/L (3.5-5.1); SODIUM 137 MMOL/L (136-145)
[2019-03-18] MEDS: cefTRIAXone 1 GM in NS 55 ML IVPB SCH (09:55)
[2019-03-18] MEDS: Bactrim-DS 1 tab ORAL SCH (09:55)
[2019-03-18] MEDS ORDERED: Midazolam 2mg/2ml Inj ONE (11:09)
[2019-03-18] MEDS ORDERED: fentaNYL 100 mcg/2 mL IV ONE (11:09)
--- NOTE | 2019-03-18 11:38 | Anethesia Preoperative Eval ---
Anesthesia Pre-op PMH/ROS General Date of Evaluation: Mar 18, 2019 Anesthesiologist: Erich ASA Score: ASA 2 Mallampati Score Class I : Soft palate, uvula, fauces, pillars visible Class II: Soft palate, uvula, fauces visible Class III: Soft palate, base of uvula visible Class IV: Only hard plate visible Mallampati Classification: Class II Surgeon: Patty Diagnosis: Right axillary wound Surgical Procedure: Right axillary wound debriedment and closure Anesthesia History: none Family History: no anesthesia problems Allergies: Coded Allergies: SILVER (Verified Allergy, Mild, 06/13/18) AZATHIOPRINE (Verified Allergy, Unknown, 05/15/18) DOCUSATE (Verified Allergy, Unknown, 05/15/18) ok for oral LATEX (Verified Allergy, Unknown, 05/15/18) VANCOMYCIN (Verified Allergy, Unknown, 05/15/18) BISACODYL (Verified Adverse Reaction, Severe, Rash, 05/15/18) Uncoded Allergies: IODINE CONTRAST (Allergy, Unknown, 05/15/18) TAPE (Allergy, Unknown, 05/15/18) Medications: see eMAR Patient NPO?: Yes NPO Date: Mar 18, 2019 NPO Time: 0000 Past Medical History Cardiovascular: Denies: HTN, CAD, [place], valve dz, arrhythmia, other Pulmonary: Denies: asthma, COPD, INDIRA, other Gastrointestinal/Genitourinary: Reports: GERD, other - chrons; Denies: CRI, ESRD Neurologic/Psychiatric: Reports: depression/anxiety; Denies: dementia, CVA, TIA, other Endocrine: Denies: DM, hypothyroidism, steroids, other HEENT: Denies: cataract (L), cataract (R), glaucoma, [place] (L), [place] (R), other Hematology/Immune: Reports: anemia - chronic; Denies: DVT, bleeding disorder, other Musculoskeletal/Integumentary: Denies: OA, RA, DJD, DDD, edema, other PSxH Narrative: laparotomy, bowel resection Anesthesia Pre-op Phys. Exam Physician Exam Last Vital Signs Date Time Temp Pulse Resp B/P (MAP) Pulse Ox O2 Delivery O2 Flow Rate FiO2 03/18/19 09:00 Room Air 03/18/19 08:00 98.4 108 20 116/74 (88) 97 Constitutional: NAD Cardiovascular: RRR Respiratory: CTA Airway Exam Mallampati Score: Class II MO: full ROM: full Teeth: intact Anesthesia Pre-op A/P Labs Hematology Test 03/18/19 06:00 White Blood Count 12.5 K/UL (4.8-10.8) H Red Blood Count 4.49 M/UL (4.20-5.40) Hemoglobin 12.3 G/DL (12.0-16.0) Hematocrit 36.5 % (37.0-47.0) L Mean Corpuscular Volume 81 FL (80-99) Mean Corpuscular Hemoglobin 27.5 PG (27.0-31.0) Mean Corpuscular Hemoglobin Concent 33.8 G/DL (32.0-36.0) Red Cell Distribution Width 12.7 % (11.6-14.8) Platelet Count 379 K/UL (150-450) Mean Platelet Volume 5.7 FL (6.5-10.1) L Neutrophils (%) (Auto) 63.2 % (45.0-75.0) Lymphocytes (%) (Auto) 27.7 % (20.0-45.0) Monocytes (%) (Auto) 7.5 % (1.0-10.0) Eosinophils (%) (Auto) 0.9 % (0.0-3.0) Basophils (%) (Auto) 0.7 % (0.0-2.0) Chemistry Test 03/18/19 06:00 Sodium Level 137 MMOL/L (136-145) Potassium Level 4.1 MMOL/L (3.5-5.1) Chloride Level 105 MMOL/L (98-107) Carbon Dioxide Level 24 MMOL/L (21-32) Anion Gap 9 mmol/L (5-15) Blood Urea Nitrogen 10 mg/dL (7-18) Creatinine 1.0 MG/DL (0.55-1.30) Estimat Glomerular Filtration Rate > 60 mL/min (>60) Glucose Level 109 MG/DL (74-106) H Calcium Level 8.1 MG/DL (8.5-10.1) L Risk Assessment & Plan Assessment: ASA II Plan: GA Status Change Before Surgery: No Pre-Antibiotics Drug: TBD Given Within 1 Hr of Incision: Yes Yaima Samano MD Mar 18, 2019 11:38
[2019-03-18] MEDS ORDERED: LR 1000ml 1,000 ML IVLG SCH (11:40)
[2019-03-18] MEDS ORDERED: DiphenhydrAMINE 50mg/ml Inj IVP PRN (11:45)
[2019-03-18] MEDS ORDERED: fentaNYL 100 mcg/2 mL IV PRN (11:45)
[2019-03-18] MEDS ORDERED: Midazolam 2mg/2ml Inj IVP PRN (11:45)
[2019-03-18] MEDS ORDERED: Hydromorphone 0.5mg/0.5ml inj IVP PRN (11:45)
[2019-03-18] MEDS ORDERED: Ketorolac 30mg Inj IV PRN (11:45)
[2019-03-18] MEDS ORDERED: LORazepam Inj 2mg/ml 1ml IV PRN (11:45)
[2019-03-18] MEDS ORDERED: Metoclopramide 10mg/2ml Inj IVP PRN ×2 (11:45→12:00)
--- NOTE | 2019-03-18 11:50 | Pre-Procedure Note/Attestation ---
Pre-Procedure Note/Attestation Complete Prior to Procedure Planned Procedure: right Procedure Narrative: Right axillary wound debridement with possible wound closure Attestation I attest that I discussed the nature of the procedure; its benefits; risks and complications; and alternatives (and the risks and benefits of such alternatives ), prior to the procedure, with the patient (or the patient's legal construction representative). I attest that, if there was a reasonable possibility of needing a blood transfusion, the patient (or the patient's legal construction representative) was given the [facility] standardized written summary, pursuant to the Ishan Eli Blood Safety Act ([place] Health and Safety Code # 1645, as amended). I attest that I re-evaluated the patient just prior to the surgery and that there has been no change in the patient's H&P, except as documented below: Sagar Brambila MD Mar 18, 2019 11:50
[2019-03-18] MEDS ORDERED: Sterile Water Irrig 1000ml IRRIG ONE (12:00)
[2019-03-18] MEDS ORDERED: Rate Change PCA 1 Each MISC PRN (12:00)
[2019-03-18] MEDS ORDERED: LR 1000ml ONE (12:00)
[2019-03-18] MEDS ORDERED: PCA Education Pamphlet MISC ONE (12:00)
[2019-03-18] MEDS ORDERED: Metoclopramide 10mg/2ml Inj ONE (12:00)
[2019-03-18] MEDS ORDERED: HYDROcodone/Acetamin 10/325 tab ORAL PRN (12:00)
[2019-03-18] MEDS ORDERED: HYDROcodone/Acetamin 5/325 tab ORAL PRN (12:00)
[2019-03-18] MEDS ORDERED: Zolpidem 5mg tab ORAL PRN (12:00)
[2019-03-18] MEDS ORDERED: NS Irrig 1000ml ONE (12:00)
[2019-03-18] MEDS ORDERED: Propofol 200mg/20ml IV ONE (12:05)
[2019-03-18] MEDS ORDERED: Lidocaine 1% MPF 10mg/ml 5ml ONE (12:05)
[2019-03-18] MEDS ORDERED: Lidocaine 1% 10mg/ml/Epi 0.005mg/ml 30ml vial INJ ONE (12:09)
[2019-03-18] MEDS ORDERED: Bacitracin 50000 Units Vial ONE (12:10)
[2019-03-18] MEDS ORDERED: NeoSporin Gu Irrig 1ml Amp IRRIG ONE (12:10)
[2019-03-18] MEDS ORDERED: Dexamethasone 4mg/ml vial ONE (12:39)
[2019-03-18] MEDS ORDERED: Ketamine 500mg/10ml vial ONE (12:50)
--- NOTE | 2019-03-18 13:12 | Operative Note - PDOC ---
Operative Note Operative Note Pre-op Diagnosis: Right axillary wound dehiscence Procedure: Debridement of right axillary wound with closure of three separate wounds Post-op Diagnosis: same as pre-op Surgeon: Patty Anesthesia: general Specimen: yes Complications: none Condition: stable Estimated Blood Loss: minimal Drains: none Implant(s) used?: No Sagar Brambila MD Mar 18, 2019 13:12
--- NOTE | 2019-03-18 13:20 | Immediate Post-Op Evaluation ---
Immediate Post-Op Evalulation Immediate Post-Op Evalulation Procedure: Right axillary wound debriedment and closure Date of Evaluation: Mar 18, 2019 Time of Evaluation: 13:22 IV Fluids: 500 Blood Products: 0 Estimated Blood Loss: min Urinary Output: 0 Blood Pressure Systolic: 94 Blood Pressure Diastolic: 55 Pulse Rate: 90 Respiratory Rate: 16 O2 Sat by Pulse Oximetry: 96 Temperature (Fahrenheit): 97.6 Pain Score (1-10): 0 Nausea: No Vomiting: No Complications 0 Patient Status: awake, reacts, patent, none Hydration Status: adequate Drug: N/A Yaima Samano MD Mar 18, 2019 13:20
[2019-03-18] MEDS ORDERED: Meperidine 50mg/ml Inj(FOR RIGORS ONLY) IVP SCH (13:45)
[2019-03-18] MEDS ORDERED: Meperidine 50mg/ml Inj(FOR RIGORS ONLY) ONE (14:09)
[2019-03-18] MEDS: PCA HYDROmorphone 1mg/ml 30 ML IV PRN (14:49)
--- NOTE | 2019-03-18 15:21 | General Progress Note ---
Assessment/Plan Problem List: (1) Intractable pain ICD Codes: R52 - Pain, unspecified SNOMED: 83754362 (2) Wound cellulitis ICD Codes: L03.90 - Cellulitis, unspecified SNOMED: 586649110 (3) Opioid use disorder, moderate, dependence ICD Codes: F11.20 - Opioid dependence, uncomplicated SNOMED: 04858579 (4) Depression ICD Codes: F32.9 - Major depressive disorder, single episode, unspecified SNOMED: 30194765 (5) Crohns disease ICD Codes: K50.90 - Crohn's disease, unspecified, without complications SNOMED: 55490722 (6) Anxiety ICD Codes: F41.9 - Anxiety disorder, unspecified SNOMED: 72256078 (7) Hydradenitis ICD Codes: L73.2 - Hidradenitis suppurativa SNOMED: 93612986 Status: stable Assessment/Plan: 23 year old female with right axillary infection, hidradenitis suppurativa s/p debridement on 01/22/19, s/p wound vac and flap closure by Dr. Brambila now presents with severe intractable pain, greenish foul smelling discharge, possible sinus tract in the posterior axilla. Admit to med surg Pain control IV Dilaudid 1 mg [id number] for severe pain, Percocet 10 every 4 hours for moderate pain, Tylenol for mild pain Plastic surgery consult Dr Brambila IV antibiotics with ceftriaxone and Bactrim. day 4. DC Bactrim, start doxycycline ID consult OR today Wound care She is requesting IV Benadryl for itching associated with pain meds GI consult Pain management consult vte ppx: scd boots, early ambulation I spent 40 minutes on this encounter. Greater than 50% spent on counselling and care coordination. Subjective Date patient seen: Mar 18, 2019 ROS Limited/Unobtainable: No Constitutional: Reports: other - pain HEENT: Denies: no symptoms, eye pain, blurred vision, tearing, double vision, ear pain, ear discharge, nose pain, nose congestion, throat pain, throat swelling, mouth pain, mouth swelling, other Cardiovascular: Denies: no symptoms, chest pain, edema, irregular heart rate, lightheadedness, palpitations, syncope, other Respiratory: Denies: no symptoms, cough, orthopnea, shortness of breath, SOB with excertion, SOB at rest, sputum, stridor, wheezing, other Gastrointestinal/Abdominal: Reports: abdominal pain, constipated - has bm but hard stool Genitourinary: Denies: no symptoms, burning, discharge, frequency, flank pain, hematuria, incontinence, pain, urgency, other Neurologic/Psychiatric: Denies: no symptoms, anxiety, depressed, emotional problems, headache, numbness, paresthesia, pre-existing deficit, seizure, tingling, tremors, weakness, other Endocrine: Denies: no symptoms, excessive sweating, flushing, intolerance to cold, intolerance to heat, increased hunger, increased thirst, increased urine, unexplained weight gain, unexplained weight loss, other Hematologic/Lymphatic: Denies: no symptoms, anemia, easy bleeding, easy bruising, other Allergies: Coded Allergies: SILVER (Verified Allergy, Mild, 06/13/18) AZATHIOPRINE (Verified Allergy, Unknown, 05/15/18) DOCUSATE (Verified Allergy, Unknown, 05/15/18) ok for oral LATEX (Verified Allergy, Unknown, 05/15/18) VANCOMYCIN (Verified Allergy, Unknown, 05/15/18) BISACODYL (Verified Adverse Reaction, Severe, Rash, 05/15/18) Uncoded Allergies: IODINE CONTRAST (Allergy, Unknown, 05/15/18) TAPE (Allergy, Unknown, 05/15/18) Subjective seen and examined. Thinks she is having Crohns flare with abdominal pain and hard stools (usually constipated during flares). she is npo for OR today. again has rash with Bactrim and feels her skin is sunburned Objective Last 24 Hour Vital Signs Date Time Temp Pulse Resp B/P (MAP) Pulse Ox O2 Delivery O2 Flow Rate FiO2 03/18/19 14:45 97.4 03/18/19 14:45 97.4 03/18/19 14:45 97.4 03/18/19 14:35 80 24 140/55 98 Nasal Cannula 3 03/18/19 14:20 90 24 140/55 100 Simple Mask 6 03/18/19 14:05 80 24 118/66 100 Simple Mask 6 03/18/19 13:45 102 27 112/55 100 Simple Mask 6 03/18/19 13:35 86 23 127/63 100 Simple Mask 6 03/18/19 13:25 86 22 109/58 96 Simple Mask 6 03/18/19 13:20 88 14 98/55 97 Simple Mask 6 03/18/19 13:20 90 16 96 03/18/19 13:17 97.6 88 14 104/43 97 Simple Mask 6 03/18/19 09:00 Room Air 03/18/19 08:00 98.4 108 20 116/74 (88) 97 03/18/19 04:00 98.4 96 20 95/56 (69) 97 03/18/19 00:00 98.1 97 19 108/56 (73) 100 03/17/19 21:00 Room Air 03/17/19 20:00 98.5 96 20 109/64 (79) 100 03/17/19 18:02 98.2 03/17/19 16:00 98.3 82 18 102/60 (74) 96 Intake and Output 03/17/19 03/18/19 19:00 07:00 Intake Total 500 ml 650 ml Balance 500 ml 650 ml Intake Oral 500 ml 400 ml IV Total 250 ml # Voids 2 # Bowel Movements 1 Laboratory Tests 03/18/19 06:00: White Blood Count 12.5H, Red Blood Count 4.49, Hemoglobin 12.3, Hematocrit 36.5L , Mean Corpuscular Volume 81, Mean Corpuscular Hemoglobin 27.5, Mean Corpuscular Hemoglobin Concent 33.8, Red Cell Distribution Width 12.7, Platelet Count 379, Mean Platelet Volume 5.7L, Neutrophils (%) (Auto) 63.2, Lymphocytes ( %) (Auto) 27.7, Monocytes (%) (Auto) 7.5, Eosinophils (%) (Auto) 0.9, Basophils (%) (Auto) 0.7, Sodium Level 137, Potassium Level 4.1, Chloride Level 105, Carbon Dioxide Level 24, Anion Gap 9, Blood Urea Nitrogen 10, Creatinine 1.0, Estimat Glomerular Filtration Rate > 60, Glucose Level 109H, Calcium Level 8.1L Height (Feet): 5 Height (Inches): 5.00 Weight (Pounds): 180 Objective General Appearance: severe distress - due to pain , obese Lines, tubes and drains: peripheral HEENT: normocephalic, atraumatic, anicteric, mucous membranes moist, PERRL, EOMI, other - right ear: +light reflex, erythema Neck: non-tender, supple Respiratory/Chest: chest wall non-tender, lungs clear, normal breath sounds, no respiratory distress, no accessory muscle use Cardiovascular/Chest: normal peripheral pulses, normal rate, regular rhythm, no JVD Abdomen: non tender, soft, no mass Extremities: normal range of motion, non-tender Skin Exam: other - right axilla: small opening to wound, otherwise healed well , no discharge. 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 Mar 18, 2019 15:21
[2019-03-18] MEDS: Doxycycline Hyclate 100 MG in D5W 110 ML IV SCH (15:56)
--- NOTE | 2019-03-18 16:15 | Operative Note - Dictated ---
DATE OF OPERATION: 03/18/2019 PREOPERATIVE DIAGNOSIS: Status post right axillary wound reconstruction following excision of hidradenitis with open wound and dehiscence. POSTOPERATIVE DIAGNOSIS: Status post right axillary wound reconstruction following excision of hidradenitis with open wound and dehiscence. PROCEDURES: 1. Excision and debridement of open granulating wound in the 3 o'clock position in the axillary region with wound measuring 3 cm. 2. Complex closure of the right axillary wound resulting from excision of hyper-granulating region at the 3 o'clock position of the axilla. 3. Secondary wound closure of right axillary wound dehiscence at the juncture of the lateral thoracic flap and chest wall junction, this area measured 6 cm. 4. Debridement and closure of 1.5 cm open wound at the apex of the axillary region at the 11 o'clock position, just posterior to the flap. SURGEON: Sagar Brambila M.D. FLIGHT CONTROLS ENGINEER: None. ANESTHESIA: General. COMPLICATIONS: None. DISPOSITION: Stable to the recovery room. INDICATIONS FOR SURGERY: This is a 23-year-old female with an existing diagnosis of hidradenitis suppurativa who has previously undergone bilateral axillary excision of hidradenitis with reconstruction. Her left axilla is completely healed and doing well. Her right axilla, she underwent debridement and flap re-insetting approximately 6 weeks ago and has been doing outpatient wound care, however, recently was having exquisite pain and has been seeing her primary care physician for pain medication and presented to the emergency room recently with uncontrollable pain in the open regions of her axillary wound. The open areas were a dehisced portion of the flap inferiorly at its junction with the lateral chest wall. In addition, during hyper-granulating wound that was exquisitely tender at the 3 o'clock position just anterior to the flap and a smaller wound that was at the apex of the right axilla, measuring 1.5 cm. She was admitted by the medical team, started on IV antibiotics. She was noted to have a leukocytosis upon admission and was given IV antibiotics. The plan was to perform a debridement of these areas with closure and given the exquisite tenderness in particular of the hyper-granulating region, my thought was that by excising that area that would help us address her symptoms along with the primary closure of the wound to reduce the raw surface that was exposed. She understood the risks and benefits of surgery and agreed to proceed. DETAILS OF THE OPERATION: The patient was brought to the operating room and laid in the supine position on the operating room table. Right axilla and chest were prepped and draped in a sterile and usual fashion. As stated earlier, there were three areas of wound openings, we first began with the 3 o'clock position of the hyper-granulating area, which measured 3 cm. A total of 3 mL of lidocaine with epinephrine were injected into the wound base and a #15 blade was then used to completely excise the hyper-granulating area in an elliptical-type of fashion down to the underlying subcutaneous fat layer. Once this was done, the resulting defect was approximately 4.5 x 3 cm and direct closure was not quite amenable as such undermining of the tissues. Following of debridement had to be performed, undermining the skin flaps was performed, 1.5 cm on either side to then allow for a tension-free repair. Once the undermining has been completed, the wound was then copiously irrigated with pulse lavage and then we proceeded to perform a complex closure of the 4.5 cm wound using a combination of #0 and #2-0 Vicryl sutures from layered closure of the deep layers and then a #3-0 Prolene was used to close the skin using a combination of interrupted and continuous running suture. We then turned our attention to the larger area that measured 6 cm of the wound dehiscence in the inferior aspect of the flap and its junction with the lateral chest wall. The area had hyper-granulating tissue, however, the dehiscence was an area of significant pain to the patient and needed to be addressed as discussed in her indications for surgery. We then proceeded to use a #15 blade to sharply debride the granulating tissue in the wound bed and then also did the same on the chest wall side of the wound, which was the inferior aspect of the wound. Once all of the wound bed was demonstrating punctate bleeding, we then proceeded to secondarily close the wound dehiscence using a combination of #0 and #2-0 Vicryl sutures and multiple interrupted 2-0 Prolene were used to close this wound that had dehisced. In the last, we turned our attention to the smaller 1.5 cm wound in the apex, this area was similarly debrided sharply with a #15 blade down to punctate bleeding and a total of two #2-0 Vicryl sutures were used to close the deep layer and a total of 3 interrupted #2-0 Prolene were then used to close the skin. For all the wounds, Dermabond was applied to the skin surface. Telfa was then applied on top of that and a compressive dressing was placed. This completed the debridement and complex closure of the axillary wound at the 3 o'clock position followed by secondary wound closure of the flap dehiscence and lastly the simple closure of the 1.5 cm wound at the axillary apex. The patient tolerated the procedure well. There were no complications. All needle and sponge counts were also corrected at the end of the case. Sagar Brambila M.D. DR: HAIM JOB#: [id number] CC:
[2019-03-18] MEDS ORDERED: Lactulose 10gm/15ml UDC ORAL SCH (18:00)
[2019-03-18] MEDS: PCA shift volume MISC SCH (19:08)
[2019-03-18] MEDS: Heparin 5000 units/ml inj SUBQ SCH (21:01)
[2019-03-19] VITALS (7 sets, daily range): BP systolic 98–132; BP diastolic 62–83
[2019-03-19] MEDS: DiphenhydrAMINE 50mg/ml Inj IVP PRN ×6 (00:18→22:31)
[2019-03-19] MEDS: Hydromorphone 0.5mg/0.5ml inj IVP PRN ×3 (01:05→07:39)
[2019-03-19] MEDS: Doxycycline Hyclate 100 MG in D5W 110 ML IV SCH ×2 (03:33→17:09)
[2019-03-19 06:35] LABS: BASOPHILS % (AUTO) 0.4 % (0.0-2.0); HEMATOCRIT 35.8 % (37.0-47.0); HEMOGLOBIN 11.9 G/DL (12.0-16.0); LYMPHOCYTES % (AUTO) 13.7 % (20.0-45.0); MEAN CORPUSCULAR VOLUME 82 FL (80-99); MONOCYTES % (AUTO) 4.3 % (1.0-10.0); NEUTROPHILS % (AUTO) 81.6 % (45.0-75.0); PLATELET COUNT 376 K/UL (150-450); RED BLOOD COUNT 4.36 M/UL (4.20-5.40); RED CELL DISTRIBUTION WIDTH 12.4 % (11.6-14.8); WHITE BLOOD COUNT 14.4 K/UL (4.8-10.8)
[2019-03-19 07:13] LABS: ANION GAP 8 mmol/L (5-15); BLOOD UREA NITROGEN 11 mg/dL (7-18); CARBON DIOXIDE 27 MMOL/L (21-32); CHLORIDE 104 MMOL/L (98-107); CREATININE 0.9 MG/DL (0.55-1.30); POTASSIUM 4.3 MMOL/L (3.5-5.1); SODIUM 138 MMOL/L (136-145)
[2019-03-19] MEDS: PCA shift volume MISC SCH ×2 (07:24→19:17)
--- NOTE | 2019-03-19 08:11 | 48 Hour Post Anesthesia Eval ---
Post Anesthesia Evaluation Procedure: Right axillary wound debriedment and closure Date of Evaluation: Mar 19, 2019 Time of Evaluation: 06:17 Blood Pressure Systolic: 115 0: 67 Pulse Rate: 82 Respiratory Rate: 20 Temperature (Fahrenheit): 98.7 O2 Sat by Pulse Oximetry: 97 Airway: patent Nausea: No Vomiting: No Pain Intensity: 2 Hydration Status: adequate Cardiopulmonary Status: Stable Mental Status/LOC: patient returned to baseline Follow-up Care/Observations: 0 Post-Anesthesia Complications: 0 Follow-up care needed: N/A Jadon Tripp MD Mar 19, 2019 08:11
[2019-03-19] MEDS: Lactulose 20gm/30ml UDC ORAL SCH ×3 (09:00→17:09)
[2019-03-19] MEDS: Heparin 5000 units/ml inj SUBQ SCH ×2 (09:12→20:57)
[2019-03-19] MEDS: cefTRIAXone 1 GM in NS 55 ML IVPB SCH (09:12)
[2019-03-19] MEDS ORDERED: Naloxone 0.4mg/ml Inj IVP PRN (09:15)
--- NOTE | 2019-03-19 09:19 | Consultation ---
History of Present Illness General Date patient seen: Mar 19, 2019 Time patient seen: 08:30 - am Chief Complaint: Right axilla pain Referring physician: Lisseth Reason for Consultation: Pain managment Present Illness HPI Patient is a known patient from recent hospital admission. She was admitted due to wound infection and s/p debridement. Started on [address] [employer] Dilaudid 0.2mg Q6min using 24mg since the surgery. Is also on Dilaudid 1mg IVPB and Alvin 5-10mg and Percocet 10mg. Has minimal pain relief due to this we were consulted so patient has adequate pain control while her in the hospital. Allergies: Coded Allergies: SILVER (Verified Allergy, Mild, 06/13/18) AZATHIOPRINE (Verified Allergy, Unknown, 05/15/18) DOCUSATE (Verified Allergy, Unknown, 05/15/18) ok for oral LATEX (Verified Allergy, Unknown, 05/15/18) VANCOMYCIN (Verified Allergy, Unknown, 05/15/18) BISACODYL (Verified Adverse Reaction, Severe, Rash, 05/15/18) Uncoded Allergies: IODINE CONTRAST (Allergy, Unknown, 05/15/18) TAPE (Allergy, Unknown, 05/15/18) Medication History Scheduled Aripiprazole* (Abilify*), 5 MG ORAL DAILY, (Reported) Fluoxetine Hcl* (Prozac*), 40 MG ORAL DAILY, (Reported) Hydromorphone Hcl (Hydromorphone Hcl), 2 MG ORAL EVERY 6 HOURS, (Reported) Omeprazole Magnesium (Prilosec Otc), 20 MG ORAL DAILY, (Reported) Scheduled PRN Oxycodone Hcl/Acetaminophen 10-325 Mg Tablet (Percocet 10-325 Mg Tablet*), 1 TAB ORAL Q4H PRN for For Pain, (Reported) Patient History Healthcare decision maker Resuscitation status Full Code Advanced Directive on File No Past Medical/Surgical History Past Medical/Surgical History: (1) Post op infection (2) Constipation (3) Pneumonia (4) Sepsis (5) Abscess (6) Anemia (7) Anxiety (8) Crohns disease (9) Depression (10) Intractable pain (11) Hidradenitis axillaris (12) Wound cellulitis Review of Systems ROS Narrative Constitutional: Reports: no symptoms HEENT: Reports: no symptoms Cardiovascular: Reports: no symptoms Respiratory: Reports: cough Gastrointestinal/Abdominal: Reports: no symptoms Genitourinary: Reports: no symptoms Neurologic/Psychiatric: Reports: no symptoms Endocrine: Reports: no symptoms Hematologic/Lymphatic: Reports: no symptoms Physical Exam Physical Exam Narrative General Appearance: no apparent distress, alert EENT: PERRL/EOMI, normal ENT inspection Neck: non-tender, normal alignment Respiratory/Chest: lungs clear, normal breath sounds Abdomen: normal bowel sounds, non tender Extremities: other - right axilla wound noted Edema: no edema noted Generalized Neurologic: alert, oriented x 3 Skin: normal pigmentation Last 24 Hour Vital Signs Date Time Temp Pulse Resp B/P (MAP) Pulse Ox O2 Delivery O2 Flow Rate FiO2 03/19/19 08:11 82 20 97 03/19/19 08:00 100 20 98 03/19/19 04:00 98.7 82 20 115/67 (83) 97 03/19/19 04:00 82 20 97 03/19/19 00:24 95 21 97 03/19/19 00:00 98.9 95 21 98/62 (74) 97 03/18/19 21:00 98.9 90 18 109/62 (78) 95 03/18/19 21:00 Room Air 03/18/19 20:00 90 20 95 03/18/19 17:43 83 20 100 03/18/19 15:20 22 03/18/19 15:05 16 03/18/19 15:00 88 24 126/62 99 Nasal Cannula 3 03/18/19 14:50 97.7 89 24 107/60 98 Nasal Cannula 3 03/18/19 14:50 20 03/18/19 14:45 97.4 03/18/19 14:45 97.4 03/18/19 14:45 97.4 03/18/19 14:35 80 24 140/55 98 Nasal Cannula 3 03/18/19 14:20 90 24 140/55 100 Simple Mask 6 03/18/19 14:05 80 24 118/66 100 Simple Mask 6 03/18/19 13:45 102 27 112/55 100 Simple Mask 6 03/18/19 13:35 86 23 127/63 100 Simple Mask 6 03/18/19 13:25 86 22 109/58 96 Simple Mask 6 03/18/19 13:20 88 14 98/55 97 Simple Mask 6 03/18/19 13:20 90 16 96 03/18/19 13:17 97.6 88 14 104/43 97 Simple Mask 6 Intake and Output 03/18/19 03/19/19 19:00 07:00 Intake Total 700 ml 910 ml Balance 700 ml 910 ml Intake Oral 800 ml IV Total 700 ml 110 ml # Voids 2 Laboratory Tests Test 03/19/19 05:35 White Blood Count 14.4 K/UL (4.8-10.8) H Red Blood Count 4.36 M/UL (4.20-5.40) Hemoglobin 11.9 G/DL (12.0-16.0) L Hematocrit 35.8 % (37.0-47.0) L Mean Corpuscular Volume 82 FL (80-99) Mean Corpuscular Hemoglobin 27.2 PG (27.0-31.0) Mean Corpuscular Hemoglobin Concent 33.1 G/DL (32.0-36.0) Red Cell Distribution Width 12.4 % (11.6-14.8) Platelet Count 376 K/UL (150-450) Mean Platelet Volume 5.6 FL (6.5-10.1) L Neutrophils (%) (Auto) 81.6 % (45.0-75.0) H Lymphocytes (%) (Auto) 13.7 % (20.0-45.0) L Monocytes (%) (Auto) 4.3 % (1.0-10.0) Eosinophils (%) (Auto) 0.0 % (0.0-3.0) Basophils (%) (Auto) 0.4 % (0.0-2.0) Erythrocyte Sedimentation Rate 34 MM/HR (0-20) H Sodium Level 138 MMOL/L (136-145) Potassium Level 4.3 MMOL/L (3.5-5.1) Chloride Level 104 MMOL/L (98-107) Carbon Dioxide Level 27 MMOL/L (21-32) Anion Gap 8 mmol/L (5-15) Blood Urea Nitrogen 11 mg/dL (7-18) Creatinine 0.9 MG/DL (0.55-1.30) Estimat Glomerular Filtration Rate > 60 mL/min (>60) Glucose Level 149 MG/DL (74-106) H Calcium Level 8.0 MG/DL (8.5-10.1) L C-Reactive Protein, Quantitative 7.8 mg/dL (0.00-0.90) H Height (Feet): 5 Height (Inches): 5.00 Weight (Pounds): 180 Medications Current Medications Medications (Trade) Dose Ordered Sig/Alix Route PRN Reason Start Time Stop Time Status Last Admin Dose Admin Acetaminophen (Tylenol) 650 mg Q4H PRN ORAL FEVER 03/18/19 12:00 04/17/19 11:59 Acetaminophen (Tylenol) 650 mg Q6H PRN ORAL Mild Pain (Pain Scale 1-3) 03/18/19 12:00 04/17/19 11:59 Albuterol/ Ipratropium (Albuterol/ Ipratropium) 3 ml Q4H PRN HHN Shortness of Breath 03/15/19 15:15 03/20/19 15:14 Ceftriaxone Sodium 1 gm/ Sodium Chloride 55 ml @ 110 mls/hr DAILY IVPB 03/15/19 16:00 03/22/19 15:59 03/18/19 09:55 Dextrose (Dextrose 50%) 25 ml Q30M PRN IV Hypoglycemia 03/15/19 15:15 04/14/19 15:14 Dextrose (Dextrose 50%) 50 ml Q30M PRN IV Hypoglycemia 03/15/19 15:15 04/14/19 15:14 Diphenhydramine HCl (Benadryl) 50 mg Q4H PRN IVP ITCHING 03/15/19 15:00 04/14/19 14:59 03/19/19 04:35 Doxycycline Hyclate 100 mg/ Dextrose 110 ml @ 110 mls/hr Q12H IV 03/18/19 16:00 03/25/19 15:59 03/19/19 03:33 Heparin Sodium (Porcine) (Heparin 5000 units/ml) 5,000 units EVERY 12 HOURS SUBQ 03/18/19 21:00 04/17/19 20:59 03/18/19 21:01 Hydromorphone HCl 30 ml @ 0 mls/hr Q24H PRN IV For Pain 03/18/19 12:00 03/20/19 11:59 03/18/19 14:49 Lactulose (Cephulac) 20 gm THREE TIMES A DAY ORAL 03/19/19 09:00 04/18/19 08:59 Metoclopramide HCl (Reglan) 10 mg Q6H PRN IVP Nausea & Vomiting 03/18/19 12:00 04/17/19 11:59 Miscellaneous Medication ([address] [employer] Rate Change) 1 ea DAILY PRN MISC rate change 03/18/19 12:00 03/20/19 11:59 Miscellaneous Medication ([address] [employer] shift volume) 1 ea Q12HR@0700,1900 MISC 03/18/19 19:00 03/20/19 18:59 03/19/19 07:24 Ondansetron HCl (Zofran) 4 mg Q6H PRN IVP Nausea & Vomiting 03/18/19 12:00 04/17/19 11:59 Oxycodone/ Acetaminophen (Percocet 10/325) 1 tab Q4H PRN ORAL FOR MODERATE 3-6 PAIN 03/15/19 15:15 03/22/19 15:14 Polyethylene Glycol (Miralax) 17 gm BEDTIME ORAL 03/19/19 21:00 04/18/19 20:59 Zolpidem Tartrate (Ambien) 5 mg DAILYPRN PRN ORAL Insomnia 03/18/19 12:00 03/25/19 11:59 Assessment/Plan Assessment/Plan: (1) Right axillary wound reconstruction status post excision of hidradenitis with flap reconstruction with a postoperative wound infection (2) S/p Debridement of right axillary wound and closure (3) Right Axilla pain Patient will be continued on [address] [employer] Dilaudid and Dilaudid 1mg IV Q4H PRN severe breakthrough pain and Percocet 10/325mg PO 1 tab Q4H moderate breakthrough pain D/w Dr. Long and he concurred. Hao Aldana Mar 19, 2019 09:19
--- NOTE | 2019-03-19 11:20 | General Progress Note ---
Assessment/Plan Problem List: (1) Intractable pain ICD Codes: R52 - Pain, unspecified SNOMED: 81899471 (2) Wound cellulitis ICD Codes: L03.90 - Cellulitis, unspecified SNOMED: 902883756 (3) Opioid use disorder, moderate, dependence ICD Codes: F11.20 - Opioid dependence, uncomplicated SNOMED: 75465871 (4) Depression ICD Codes: F32.9 - Major depressive disorder, single episode, unspecified SNOMED: 97067644 (5) Crohns disease ICD Codes: K50.90 - Crohn's disease, unspecified, without complications SNOMED: 80736703 (6) Anxiety ICD Codes: F41.9 - Anxiety disorder, unspecified SNOMED: 59450588 (7) Hydradenitis ICD Codes: L73.2 - Hidradenitis suppurativa SNOMED: 69148119 Status: stable Assessment/Plan: 23 year old female with right axillary infection, hidradenitis suppurativa s/p debridement on 01/22/19, s/p wound vac and flap closure by Dr. Brambila now presents with severe intractable pain, greenish foul smelling discharge, possible sinus tract in the posterior axilla. POD #1 s/p debridement and closure. Pain control IV Dilaudid 1 mg [id number] for severe pain, Percocet 10 every 4 hours for moderate pain, Tylenol for mild pain pain management consult Plastic surgery consult Dr Brambila, appreciate recs IV antibiotics with ceftriaxone and Bactrim. day 4. DCed Bactrim due to allergy , started doxycycline 03/18 ID consult follow up OR cultures Wound care IV Benadryl for itching associated with pain meds GI consult to make sure no Crohns flare, patient is concerned. continue lactulose for constipation vte ppx: scd boots, early ambulation disposition: dc home 03/21, spoke to CM regarding setting on home health for wound care I spent 40 minutes on this encounter. Greater than 50% spent on counselling and care coordination. Subjective Date patient seen: Mar 19, 2019 ROS Limited/Unobtainable: No Constitutional: Denies: no symptoms, chills, diaphoresis, fever, malaise, weakness, other HEENT: Denies: no symptoms, eye pain, blurred vision, tearing, double vision, ear pain, ear discharge, nose pain, nose congestion, throat pain, throat swelling, mouth pain, mouth swelling, other Cardiovascular: Denies: no symptoms, chest pain, edema, irregular heart rate, lightheadedness, palpitations, syncope, other Respiratory: Denies: no symptoms, cough, orthopnea, shortness of breath, SOB with excertion, SOB at rest, sputum, stridor, wheezing, other Gastrointestinal/Abdominal: Reports: constipated Genitourinary: Denies: no symptoms, burning, discharge, frequency, flank pain, hematuria, incontinence, pain, urgency, other Neurologic/Psychiatric: Denies: no symptoms, anxiety, depressed, emotional problems, headache, numbness, paresthesia, pre-existing deficit, seizure, tingling, tremors, weakness, other Endocrine: Denies: no symptoms, excessive sweating, flushing, intolerance to cold, intolerance to heat, increased hunger, increased thirst, increased urine, unexplained weight gain, unexplained weight loss, other Hematologic/Lymphatic: Denies: no symptoms, anemia, easy bleeding, easy bruising, other Allergies: Coded Allergies: SILVER (Verified Allergy, Mild, 06/13/18) AZATHIOPRINE (Verified Allergy, Unknown, 05/15/18) DOCUSATE (Verified Allergy, Unknown, 05/15/18) ok for oral LATEX (Verified Allergy, Unknown, 05/15/18) VANCOMYCIN (Verified Allergy, Unknown, 05/15/18) BISACODYL (Verified Adverse Reaction, Severe, Rash, 05/15/18) Uncoded Allergies: IODINE CONTRAST (Allergy, Unknown, 05/15/18) TAPE (Allergy, Unknown, 05/15/18) Subjective seen and examined. she is pod #1 s/p wound debridement and closure in the right axilla. BP higher than her usual, slight tachycardia probably from pain, mild leukocytosis. Objective Last 24 Hour Vital Signs Date Time Temp Pulse Resp B/P (MAP) Pulse Ox O2 Delivery O2 Flow Rate FiO2 03/19/19 09:00 Room Air 03/19/19 08:11 82 20 97 03/19/19 08:00 97.9 100 20 120/83 (95) 03/19/19 08:00 100 20 98 03/19/19 04:00 98.7 82 20 115/67 (83) 97 03/19/19 04:00 82 20 97 03/19/19 00:24 95 21 97 03/19/19 00:00 98.9 95 21 98/62 (74) 97 03/18/19 21:00 98.9 90 18 109/62 (78) 95 03/18/19 21:00 Room Air 03/18/19 20:00 90 20 95 03/18/19 17:43 83 20 100 03/18/19 15:20 22 03/18/19 15:05 16 03/18/19 15:00 88 24 126/62 99 Nasal Cannula 3 03/18/19 14:50 97.7 89 24 107/60 98 Nasal Cannula 3 03/18/19 14:50 20 03/18/19 14:45 97.4 03/18/19 14:45 97.4 03/18/19 14:45 97.4 03/18/19 14:35 80 24 140/55 98 Nasal Cannula 3 03/18/19 14:20 90 24 140/55 100 Simple Mask 6 03/18/19 14:05 80 24 118/66 100 Simple Mask 6 03/18/19 13:45 102 27 112/55 100 Simple Mask 6 03/18/19 13:35 86 23 127/63 100 Simple Mask 6 03/18/19 13:25 86 22 109/58 96 Simple Mask 6 03/18/19 13:20 88 14 98/55 97 Simple Mask 6 03/18/19 13:20 90 16 96 03/18/19 13:17 97.6 88 14 104/43 97 Simple Mask 6 Intake and Output 03/18/19 03/19/19 18:59 06:59 Intake Total 700 ml 910 ml Balance 700 ml 910 ml Intake Oral 800 ml IV Total 700 ml 110 ml # Voids 2 Laboratory Tests 03/19/19 05:35: White Blood Count 14.4H, Red Blood Count 4.36, Hemoglobin 11.9L, Hematocrit 35.8L, Mean Corpuscular Volume 82, Mean Corpuscular Hemoglobin 27.2, Mean Corpuscular Hemoglobin Concent 33.1, Red Cell Distribution Width 12.4, Platelet Count 376, Mean Platelet Volume 5.6L, Neutrophils (%) (Auto) 81.6H, Lymphocytes (%) (Auto) 13.7L, Monocytes (%) (Auto) 4.3, Eosinophils (%) (Auto) 0.0, Basophils (%) (Auto) 0.4, Erythrocyte Sedimentation Rate 34H, Sodium Level 138, Potassium Level 4.3, Chloride Level 104, Carbon Dioxide Level 27, Anion Gap 8, Blood Urea Nitrogen 11, Creatinine 0.9, Estimat Glomerular Filtration Rate > 60 , Glucose Level 149H, Calcium Level 8.0L, C-Reactive Protein, Quantitative 7.8H Height (Feet): 5 Height (Inches): 5.00 Weight (Pounds): 180 Objective General Appearance: severe distress - due to pain , obese Lines, tubes and drains: peripheral HEENT: normocephalic, atraumatic, anicteric, mucous membranes moist, PERRL, EOMI, other - right ear: +light reflex, erythema Neck: non-tender, supple Respiratory/Chest: chest wall non-tender, lungs clear, normal breath sounds, no respiratory distress, no accessory muscle use Cardiovascular/Chest: normal peripheral pulses, normal rate, regular rhythm, no JVD Abdomen: non tender, soft, no mass Extremities: normal range of motion, non-tender Skin Exam: other -right axilla dressing c/d/I 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 Mar 19, 2019 11:20
[2019-03-19] MEDS: PCA HYDROmorphone 1mg/ml 30 ML IV PRN (13:24)
[2019-03-19] MEDS: HYDROmorphone 1mg/ml Carpuject IVP PRN ×2 (16:31→20:49)
--- NOTE | 2019-03-19 18:46 | Consultation ---
DATE OF CONSULTATION: 03/19/2019 CONSULTING PHYSICIAN: Moshe Terrazas M.D. REFERRING PHYSICIAN: Isidro Johnson M.D. CHIEF COMPLAINT: Crohn disease. HISTORY OF PRESENT ILLNESS: This is a very pleasant 23-year-old female, admitted to the hospital for right axillary infection. She has history of hidradenitis suppurativa, status post debridement on January 22, 2019, now is here for followup with wound infection, currently on antibiotics. GI consultation was requested for evaluation of Crohn disease and Crohn's treatment. According to the patient, she had diagnosis of Crohn's since age 15 and had been on numerous medications including Imuran and Humira. The only thing that works for her exactly is Remicade, but unfortunately, she has been off of Remicade for two months because of her infections. She states that she is having Crohn's flareup. According to her, her symptoms are of constipation and that is how she gets her Crohn's flareup. She also had history of ____ small intestine resection according to her within the area of terminal ileum. PAST MEDICAL HISTORY: As above. PAST SURGICAL HISTORY: As above. ALLERGIES: To silver, azathioprine, Colace, latex, vancomycin, bisacodyl, iodine, and tape. REVIEW OF SYSTEMS: A 10-point review of systems was performed and pertinent positives in HPI. PHYSICAL EXAMINATION: VITAL SIGNS: Temperature is 98.7, pulse 82, respirations 20, and blood pressure is 116/67. HEENT: Normocephalic and atraumatic. Sclerae anicteric. NECK: Supple. No evidence of obvious adenopathy. CARDIOVASCULAR: Regular rate and rhythm. Plus S1, S2. LUNGS: Clear to auscultation bilaterally. ABDOMEN: Positive bowel sounds. Soft and nontender. No rebound. No guarding. No peritoneal sign. EXTREMITIES: No cyanosis, no clubbing, no edema. LABORATORY DATA: White count is 14,000, hemoglobin 11.9, hematocrit 35, and platelet count is 376,000. Chem-7, sodium 138, potassium 4.3, BUN 11, creatinine 0.9, and glucose is 149. ASSESSMENT AND PLAN: This is a 23-year-old female with axillary infections, currently on antibiotics and history of Crohn's, currently off of medication. PLAN: We will treat the constipation. According to the patient, lactulose works very well for her, so we are going to start her on lactulose and also on MiraLAX. The patient has allergy to Colace and Dulcolax, so we are going to give her MiraLAX and lactulose, and monitor her bowel movements on daily basis. The patient was advised to follow up with her GI doctor who is managing her Crohn's as an outpatient. Most probably, she will need antibodies to Remicade to be checked before starting Remicade again on her. Meanwhile, we are going to order anemia workup including B12 given the patient had terminal ileum infection. I want to thank Dr. Johnson for this kind referral. Moshe Terrazas M.D. DR: JOE JOB#: [id number] CC: Isidro Johnson M.D.
--- NOTE | 2019-03-19 18:56 | Infectious Diseases Prog Note ---
Assessment/Plan Assessment/Plan Full consult dictated: A) 1) right axilla wound infection, hx hidradenitis suppurativa and resection 2) post-op leukocytosis 3) Crohn's disease P) 1) ceftriaxone and doxycycline 2) f/u on wound cultures 3) monitor labs 4) thank you Subjective Allergies: Coded Allergies: SILVER (Verified Allergy, Mild, 06/13/18) AZATHIOPRINE (Verified Allergy, Unknown, 05/15/18) DOCUSATE (Verified Allergy, Unknown, 05/15/18) ok for oral LATEX (Verified Allergy, Unknown, 05/15/18) VANCOMYCIN (Verified Allergy, Unknown, 05/15/18) BISACODYL (Verified Adverse Reaction, Severe, Rash, 05/15/18) Uncoded Allergies: IODINE CONTRAST (Allergy, Unknown, 05/15/18) TAPE (Allergy, Unknown, 05/15/18) Objective Vital Signs Last 24 Hour Vital Signs Date Time Temp Pulse Resp B/P (MAP) Pulse Ox O2 Delivery O2 Flow Rate FiO2 03/19/19 16:00 98.1 87 118/77 (91) 03/19/19 16:00 87 20 98 03/19/19 12:00 86 18 97 03/19/19 12:00 98.0 20 132/80 (97) 03/19/19 09:00 Room Air 03/19/19 08:11 82 20 97 03/19/19 08:00 97.9 100 20 120/83 (95) 03/19/19 08:00 100 20 98 03/19/19 04:00 98.7 82 20 115/67 (83) 97 03/19/19 04:00 82 20 97 03/19/19 00:24 95 21 97 03/19/19 00:00 98.9 95 21 98/62 (74) 97 03/18/19 21:00 98.9 90 18 109/62 (78) 95 03/18/19 21:00 Room Air 03/18/19 20:00 90 20 95 Height (Feet): 5 Height (Inches): 5.00 Weight (Pounds): 180 Laboratory Tests Test 03/19/19 05:35 White Blood Count 14.4 K/UL (4.8-10.8) H Red Blood Count 4.36 M/UL (4.20-5.40) Hemoglobin 11.9 G/DL (12.0-16.0) L Hematocrit 35.8 % (37.0-47.0) L Mean Corpuscular Volume 82 FL (80-99) Mean Corpuscular Hemoglobin 27.2 PG (27.0-31.0) Mean Corpuscular Hemoglobin Concent 33.1 G/DL (32.0-36.0) Red Cell Distribution Width 12.4 % (11.6-14.8) Platelet Count 376 K/UL (150-450) Mean Platelet Volume 5.6 FL (6.5-10.1) L Neutrophils (%) (Auto) 81.6 % (45.0-75.0) H Lymphocytes (%) (Auto) 13.7 % (20.0-45.0) L Monocytes (%) (Auto) 4.3 % (1.0-10.0) Eosinophils (%) (Auto) 0.0 % (0.0-3.0) Basophils (%) (Auto) 0.4 % (0.0-2.0) Erythrocyte Sedimentation Rate 34 MM/HR (0-20) H Sodium Level 138 MMOL/L (136-145) Potassium Level 4.3 MMOL/L (3.5-5.1) Chloride Level 104 MMOL/L (98-107) Carbon Dioxide Level 27 MMOL/L (21-32) Anion Gap 8 mmol/L (5-15) Blood Urea Nitrogen 11 mg/dL (7-18) Creatinine 0.9 MG/DL (0.55-1.30) Estimat Glomerular Filtration Rate > 60 mL/min (>60) Glucose Level 149 MG/DL (74-106) H Calcium Level 8.0 MG/DL (8.5-10.1) L C-Reactive Protein, Quantitative 7.8 mg/dL (0.00-0.90) H Current Medications Medications (Trade) Dose Ordered Sig/Alix Route PRN Reason Start Time Stop Time Status Last Admin Dose Admin Acetaminophen (Tylenol) 650 mg Q4H PRN ORAL FEVER 03/18/19 12:00 04/17/19 11:59 Acetaminophen (Tylenol) 650 mg Q6H PRN ORAL Mild Pain (Pain Scale 1-3) 03/18/19 12:00 04/17/19 11:59 Albuterol/ Ipratropium (Albuterol/ Ipratropium) 3 ml Q4H PRN HHN Shortness of Breath 03/15/19 15:15 03/20/19 15:14 Ceftriaxone Sodium 1 gm/ Sodium Chloride 55 ml @ 110 mls/hr DAILY IVPB 03/15/19 16:00 03/22/19 15:59 03/19/19 09:12 Dextrose (Dextrose 50%) 25 ml Q30M PRN IV Hypoglycemia 03/15/19 15:15 04/14/19 15:14 Dextrose (Dextrose 50%) 50 ml Q30M PRN IV Hypoglycemia 03/15/19 15:15 04/14/19 15:14 Diphenhydramine HCl (Benadryl) 50 mg Q4H PRN IVP ITCHING 03/15/19 15:00 04/14/19 14:59 03/19/19 17:10 Doxycycline Hyclate 100 mg/ Dextrose 110 ml @ 110 mls/hr Q12H IV 03/18/19 16:00 03/25/19 15:59 03/19/19 17:09 Heparin Sodium (Porcine) (Heparin 5000 units/ml) 5,000 units EVERY 12 HOURS SUBQ 03/18/19 21:00 04/17/19 20:59 03/19/19 09:12 Hydromorphone HCl 30 ml @ 0 mls/hr Q24H PRN IV For Pain 03/18/19 12:00 03/20/19 11:59 03/19/19 13:24 Hydromorphone HCl (Dilaudid) 1 mg Q4H PRN IVP breakthrough severe pain 03/19/19 09:17 03/26/19 09:16 03/19/19 16:31 Lactulose (Cephulac) 20 gm THREE TIMES A DAY ORAL 03/19/19 09:00 04/18/19 08:59 03/19/19 17:09 Metoclopramide HCl (Reglan) 10 mg Q6H PRN IVP Nausea & Vomiting 03/18/19 12:00 04/17/19 11:59 Miscellaneous Medication (FURNACE FIRER Rate Change) 1 ea DAILY PRN MISC rate change 03/18/19 12:00 03/20/19 11:59 Miscellaneous Medication (FURNACE FIRER shift volume) 1 ea Q12HR@0700,1900 MISC 03/18/19 19:00 03/20/19 18:59 03/19/19 07:24 Naloxone HCl (Narcan) 0.2 mg Q2M PRN IVP respritory distress 03/19/19 09:15 04/18/19 09:14 Ondansetron HCl (Zofran) 4 mg Q6H PRN IVP Nausea & Vomiting 03/18/19 12:00 04/17/19 11:59 Oxycodone/ Acetaminophen (Percocet 10/325) 1 tab Q4H PRN ORAL breakthrough moderate pain 03/19/19 09:17 03/26/19 09:16 Polyethylene Glycol (Miralax) 17 gm BEDTIME ORAL 03/19/19 21:00 04/18/19 20:59 Zolpidem Tartrate (Ambien) 5 mg DAILYPRN PRN ORAL Insomnia 03/18/19 12:00 03/25/19 11:59 Niya Holley MD Mar 19, 2019 18:56
[2019-03-19] MEDS: Miralax 17gm pkt ORAL SCH (20:48)
[2019-03-20] VITALS: BP 132/78
[2019-03-20] MEDS: HYDROmorphone 1mg/ml Carpuject IVP PRN ×4 (01:44→20:18)
--- NOTE | 2019-03-20 02:15 | Consultation ---
DATE OF CONSULTATION: 03/19/2019 INFECTIOUS DISEASE CONSULTATION CONSULTING PHYSICIAN: Niya Holley M.D. ATTENDING PHYSICIAN: Mary Cabrera M.D. REFERRING PHYSICIAN: Isidro Johnson M.D. REASON FOR CONSULTATION: Right axilla wound infection and also cellulitis. CHIEF COMPLAINT: The patient's chief complaint coming to the hospital is right axilla wound infection, cellulitis, and pain. HISTORY OF PRESENT ILLNESS: This is a 23-year-old female who comes into [facility]. The patient has a history of right axilla wound infection and resection of the right axilla for the hidradenitis suppurativa. The patient presents with open wound dehiscence. The patient is status post surgery, this was yesterday on 03/18/2019, included excision and debridement of open granulating wound, complex closure, right axilla wound, secondary wound closure and debridement. The patient has an elevated white count postoperatively, which is not unexpected. Infectious Disease consultation was requested for antibiotic management. The patient is currently on Rocephin and doxycycline, cultures at this time are pending except blood cultures are negative. Case was communicated with Dr. Johnson. Case was also discussed with the patient. REVIEW OF SYSTEMS: CONSTITUTIONAL: Main issue was postoperative pain in the right axilla, but it seems to be controlled. She has no fever or chills. HEAD AND NECK: No headache, neck stiffness, thrush, or dysphagia. CARDIAC: No chest pain. GASTROINTESTINAL: No nausea or diarrhea. GENITOURINARY: No Simmons. PAST MEDICAL HISTORY: Includes the following: She has a past medical history of Crohn's disease, history of hidradenitis suppurativa, status post resection the right axilla, and history of wound infection in the past. She has a history of colectomy. She is on immunosuppressant medication, Remicade. She also has a past medical history of depression, anxiety, Crohn's colectomy, multiple wound infections in the past, multiple antibiotics in the past. ALLERGIES: Include azathioprine. Other allergies include docusate, bisacodyl, iodine, contrast, latex, silver tape, and vancomycin. SOCIAL HISTORY: Negative for smoking, alcohol, or drug abuse. FAMILY HISTORY: Noncontributory. MEDICATIONS: Upon reviewing the MAR, she is on following medications: Polyethylene glycol, oxycodone, hydromorphone, , heparin. She is on doxycycline and Rocephin. She is on Zofran as needed, Reglan, zolpidem, acetaminophen, and hydromorphone. Outside medications were noted and reconciliated. PHYSICAL EXAMINATION: VITAL SIGNS: Temperature 98.1, pulse 87, respiratory rate 20, blood pressure is 118/77, and saturation 98%. GENERAL: Alert, responsive, oriented x3. HEAD AND NECK: Oral exam, no thrush. Eye exam, no icterus. Normocephalic. Neck is supple. HEART: Regular. No gallop or murmur. ABDOMEN: Soft. Positive bowel sounds. Nontender. LUNGS: Clear bilaterally. No rhonchi or rales. SKIN: Wounds are covered. No rashes. MUSCULOSKELETAL: No effusions. Legs are without cellulitis. PERIPHERAL VASCULAR: No cyanosis or gangrene. LINE SITES: No phlebitis. GENITOURINARY: No Simmons. NEUROLOGIC: Intact. Alert and oriented x3. Nonfocal. LABORATORY DATA: White count 14.4, hemoglobin 11.9, creatinine 0.9. Cultures, blood cultures are negative to date, but not sure if there is any surgical wound culture at this time. No imaging studies. ASSESSMENT AND PLAN: 1. Right axilla wound infection with cellulitis. The patient has history of hidradenitis suppurativa and had resection of right axilla hidradenitis suppurativa. The patient presents with right axilla wound infection, now status post debridement yesterday for the right axilla wound, which included excision, debridement, and complex closure. I agree with Rocephin and doxycycline for now for Streptococcus coverage where she has had Streptococcus grown in the past, I believe was a group C strep. This also has good Staph aureus coverage, gram-negative coverage. Continue Rocephin and doxycycline for now for the right axilla wound infection, status post debridement. The patient has elevated white count, postoperative, this is expected. The patient does not look otherwise septic. Continue Rocephin and doxycycline. Monitor labs and white count and check cultures if done. 2. The patient has history of Crohn's disease, on Remicade. Treatment per GI. 3. The patient has a history of depression. 4. Anxiety. 5. History of colectomy because of Crohn's disease. 6. Allergies to azathioprine, bisacodyl, docusate, iodine, latex, silver tape, and vancomycin. 7. Social history is negative. 8. Family history is noncontributory. 9. MAR was noted. 10. Case was discussed with RN. 11. Case was discussed with the patient. 12. Case was communicated with Dr. Johnson. Niya Holley M.D. DR: JOSE JOB#: [id number] CC:
[2019-03-20] MEDS: DiphenhydrAMINE 50mg/ml Inj IVP PRN ×5 (02:36→22:52)
[2019-03-20 02:53] LABS: APPEARANCE,URINE CLEAR; BILIRUBIN, URINE NEGATIVE (NEGATIVE); COLOR,URINE PALE YELLOW; GLUCOSE, URINE (UA) NEGATIVE (NEGATIVE); KETONES,URINE NEGATIVE (NEGATIVE); LEUKOCYTE ESTERASE ,URINE NEGATIVE (NEGATIVE); NITRITE,URINE NEGATIVE (NEGATIVE); PH,URINE 7 (4.5-8.0); PROTEIN,URINE NEGATIVE (NEGATIVE); UROBILINOGEN,URINE NORMAL MG/DL (0.0-1.0)
[2019-03-20] MEDS: Doxycycline Hyclate 100 MG in D5W 110 ML IV SCH ×2 (03:54→16:50)
[2019-03-20 04:00] VITALS: BP 127/75
[2019-03-20] MEDS: PCA shift volume MISC SCH (07:26)
[2019-03-20 07:33] LABS: % IRON SATURATION 32 % (15-50); IRON 77 ug/dL (50-175); TOTAL IRON BINDING CAPACITY 239 ug/dL (250-450)
[2019-03-20 08:00] VITALS: BP 100/55
--- NOTE | 2019-03-20 08:47 | General Progress Note ---
Assessment/Plan Assessment/Plan: (1) Right axillary wound reconstruction status post excision of hidradenitis with flap reconstruction with a postoperative wound infection (2) S/p Debridement of right axillary wound and closure (3) Right Axilla pain Patient will be continued on RAISE DRILL OPERATOR Dilaudid, Dilaudid and Percocet D/w Dr. Long and he concurred. Subjective Date patient seen: Mar 20, 2019 Time patient seen: 08:00 - am Constitutional: Reports: no symptoms HEENT: Reports: no symptoms Cardiovascular: Reports: no symptoms Respiratory: Reports: no symptoms Gastrointestinal/Abdominal: Reports: no symptoms Genitourinary: Reports: no symptoms Neurologic/Psychiatric: Reports: no symptoms Endocrine: Reports: no symptoms Hematologic/Lymphatic: Reports: no symptoms Allergies: Coded Allergies: SILVER (Verified Allergy, Mild, 06/13/18) AZATHIOPRINE (Verified Allergy, Unknown, 05/15/18) DOCUSATE (Verified Allergy, Unknown, 05/15/18) ok for oral LATEX (Verified Allergy, Unknown, 05/15/18) VANCOMYCIN (Verified Allergy, Unknown, 05/15/18) BISACODYL (Verified Adverse Reaction, Severe, Rash, 05/15/18) Uncoded Allergies: IODINE CONTRAST (Allergy, Unknown, 05/15/18) TAPE (Allergy, Unknown, 05/15/18) Subjective Patient is showing no signs of pain or distress. Pain has been better tolerated on the RAISE DRILL OPERATOR Dilaudid 20mg used in the last 24hrs, with Dilaudid and Percocet as needed. No new complaints at this time. Objective Last 24 Hour Vital Signs Date Time Temp Pulse Resp B/P (MAP) Pulse Ox O2 Delivery O2 Flow Rate FiO2 03/20/19 04:00 98.7 86 17 127/75 (92) 03/20/19 04:00 86 17 97 03/20/19 00:00 98.9 96 18 132/78 (96) 03/20/19 00:00 96 18 95 03/19/19 21:00 Room Air 03/19/19 20:00 98.4 86 17 125/74 (91) 03/19/19 20:00 86 17 97 03/19/19 16:00 98.1 87 118/77 (91) 03/19/19 16:00 87 20 98 03/19/19 12:00 86 18 97 03/19/19 12:00 98.0 20 132/80 (97) 03/19/19 09:00 Room Air Intake and Output 03/19/19 03/20/19 19:00 07:00 Intake Total 840 ml 590 ml Balance 840 ml 590 ml Intake Oral 840 ml 480 ml IV Total 110 ml # Voids 2 2 Laboratory Tests 03/20/19 02:00: Urine Color Pale yellow, Urine Appearance Clear, Urine pH 7, Urine Specific [place] 1.010, Urine Protein Negative, Urine Glucose (UA) Negative, Urine Ketones Negative, Urine Blood Negative, Urine Nitrite Negative, Urine Bilirubin Negative, Urine Urobilinogen Normal, Urine Leukocyte Esterase Negative 03/20/19 05:20: Iron Level 77, Total Iron Binding Capacity 239L, Percent Iron Saturation 32, Unsaturated Iron Binding 162, Vitamin B12 Level 301, Folate 11.5 Height (Feet): 5 Height (Inches): 5.00 Weight (Pounds): 219 Objective General Appearance: no apparent distress, alert EENT: PERRL/EOMI, normal ENT inspection Neck: non-tender, normal alignment Respiratory/Chest: lungs clear, normal breath sounds Abdomen: normal bowel sounds, non tender Extremities: other - right axilla wound noted Edema: no edema noted Generalized Neurologic: alert, oriented x 3 Skin: normal pigmentation Hao Aldana Mar 20, 2019 08:47
[2019-03-20] MEDS: Lactulose 20gm/30ml UDC ORAL SCH ×3 (08:53→18:00)
[2019-03-20] MEDS: cefTRIAXone 1 GM in NS 55 ML IVPB SCH (08:53)
[2019-03-20] MEDS: Heparin 5000 units/ml inj SUBQ SCH ×2 (08:54→20:19)
--- NOTE | 2019-03-20 09:31 | General Progress Note ---
Assessment/Plan Problem List: (1) Intractable pain ICD Codes: R52 - Pain, unspecified SNOMED: 47402610 (2) Wound cellulitis ICD Codes: L03.90 - Cellulitis, unspecified SNOMED: 981100801 (3) Opioid use disorder, moderate, dependence ICD Codes: F11.20 - Opioid dependence, uncomplicated SNOMED: 49558216 (4) Depression ICD Codes: F32.9 - Major depressive disorder, single episode, unspecified SNOMED: 08620314 (5) Crohns disease ICD Codes: K50.90 - Crohn's disease, unspecified, without complications SNOMED: 87306325 (6) Anxiety ICD Codes: F41.9 - Anxiety disorder, unspecified SNOMED: 52130125 (7) Hydradenitis ICD Codes: L73.2 - Hidradenitis suppurativa SNOMED: 54135807 Assessment/Plan: 23 year old female with right axillary infection, hidradenitis suppurativa s/p debridement on 01/22/19, s/p wound vac and flap closure by Dr. Brambila now presents with severe intractable pain, greenish foul smelling discharge, possible sinus tract in the posterior axilla. POD #2 s/p debridement and closure. Pain control IV Dilaudid 1 mg [id number] for severe pain, Percocet 10 every 4 hours for moderate pain, Tylenol for mild pain , now on FOSTER PARENT after surgery pain management consult Plastic surgery consult Dr Brambila, appreciate recs IV antibiotics with ceftriaxone and Bactrim. day 4. DCed Bactrim due to allergy , started doxycycline 03/18 ID consult follow up OR cultures Wound care IV Benadryl for itching associated with pain meds GI consult to make sure no Crohns flare, patient is concerned. continue lactulose for constipation, follow up B12 level vte ppx: scd boots, early ambulation disposition: dc home 03/21, spoke to CM regarding setting on home health for wound care I spent 40 minutes on this encounter. Greater than 50% spent on counselling and care coordination. Subjective Date patient seen: Mar 20, 2019 ROS Limited/Unobtainable: No Constitutional: Reports: other - pain, R axilla HEENT: Denies: no symptoms, eye pain, blurred vision, tearing, double vision, ear pain, ear discharge, nose pain, nose congestion, throat pain, throat swelling, mouth pain, mouth swelling, other Cardiovascular: Denies: no symptoms, chest pain, edema, irregular heart rate, lightheadedness, palpitations, syncope, other Respiratory: Denies: no symptoms, cough, orthopnea, shortness of breath, SOB with excertion, SOB at rest, sputum, stridor, wheezing, other Gastrointestinal/Abdominal: Reports: constipated - has flatus Genitourinary: Denies: no symptoms, burning, discharge, frequency, flank pain, hematuria, incontinence, pain, urgency, other Neurologic/Psychiatric: Denies: no symptoms, anxiety, depressed, emotional problems, headache, numbness, paresthesia, pre-existing deficit, seizure, tingling, tremors, weakness, other Endocrine: Denies: no symptoms, excessive sweating, flushing, intolerance to cold, intolerance to heat, increased hunger, increased thirst, increased urine, unexplained weight gain, unexplained weight loss, other Hematologic/Lymphatic: Denies: no symptoms, anemia, easy bleeding, easy bruising, other Allergies: Coded Allergies: SILVER (Verified Allergy, Mild, 06/13/18) AZATHIOPRINE (Verified Allergy, Unknown, 05/15/18) DOCUSATE (Verified Allergy, Unknown, 05/15/18) ok for oral LATEX (Verified Allergy, Unknown, 05/15/18) VANCOMYCIN (Verified Allergy, Unknown, 05/15/18) BISACODYL (Verified Adverse Reaction, Severe, Rash, 05/15/18) Uncoded Allergies: IODINE CONTRAST (Allergy, Unknown, 05/15/18) TAPE (Allergy, Unknown, 05/15/18) Subjective seen and examined. she is pod #2 s/p wound debridement and closure in the right axilla. BP higher than her usual, mild leukocytosis. Hasn't ambulated yet Objective Last 24 Hour Vital Signs Date Time Temp Pulse Resp B/P (MAP) Pulse Ox O2 Delivery O2 Flow Rate FiO2 03/20/19 04:00 98.7 86 17 127/75 (92) 03/20/19 04:00 86 17 97 03/20/19 00:00 98.9 96 18 132/78 (96) 03/20/19 00:00 96 18 95 03/19/19 21:00 Room Air 03/19/19 20:00 98.4 86 17 125/74 (91) 03/19/19 20:00 86 17 97 03/19/19 16:00 98.1 87 118/77 (91) 03/19/19 16:00 87 20 98 03/19/19 12:00 86 18 97 03/19/19 12:00 98.0 20 132/80 (97) Intake and Output 03/19/19 03/20/19 19:00 07:00 Intake Total 840 ml 590 ml Balance 840 ml 590 ml Intake Oral 840 ml 480 ml IV Total 110 ml # Voids 2 2 Laboratory Tests 03/20/19 02:00: Urine Color Pale yellow, Urine Appearance Clear, Urine pH 7, Urine Specific [place] 1.010, Urine Protein Negative, Urine Glucose (UA) Negative, Urine Ketones Negative, Urine Blood Negative, Urine Nitrite Negative, Urine Bilirubin Negative, Urine Urobilinogen Normal, Urine Leukocyte Esterase Negative 03/20/19 05:20: Iron Level 77, Total Iron Binding Capacity 239L, Percent Iron Saturation 32, Unsaturated Iron Binding 162, Vitamin B12 Level 301, Folate 11.5 Height (Feet): 5 Height (Inches): 5.00 Weight (Pounds): 219 Objective General Appearance: severe distress - due to pain , obese Lines, tubes and drains: peripheral HEENT: normocephalic, atraumatic, anicteric, mucous membranes moist, PERRL, EOMI, other - right ear: +light reflex, erythema Neck: non-tender, supple Respiratory/Chest: chest wall non-tender, lungs clear, normal breath sounds, no respiratory distress, no accessory muscle use Cardiovascular/Chest: normal peripheral pulses, normal rate, regular rhythm, no JVD Abdomen: non tender, soft, no mass Extremities: normal range of motion, non-tender Skin Exam: other -right axilla dressing c/d/I 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 Mar 20, 2019 09:31
--- NOTE | 2019-03-20 09:35 | General Progress Note ---
Progress Note Progress Note Pt seen and examined. POD# 2 and doing well. Dressings removed. Wounds are clean. Dc home on abx. Sagar Campbell MD, MD Mar 20, 2019 09:35
--- NOTE | 2019-03-20 11:46 | General Progress Note ---
Assessment/Plan Problem List: (1) Anemia ICD Codes: D64.9 - Anemia, unspecified SNOMED: 980312302 (2) Constipation ICD Codes: K59.00 - Constipation, unspecified SNOMED: 63880974 (3) Hidradenitis axillaris ICD Codes: L73.2 - Hidradenitis suppurativa SNOMED: 149275759 (4) Crohns disease ICD Codes: K50.90 - Crohn's disease, unspecified, without complications SNOMED: 11420337 Assessment/Plan: bowel regimen abx wound care needs out patient fu for Remicade Subjective ROS Limited/Unobtainable: Yes Allergies: Coded Allergies: SILVER (Verified Allergy, Mild, 06/13/18) AZATHIOPRINE (Verified Allergy, Unknown, 05/15/18) DOCUSATE (Verified Allergy, Unknown, 05/15/18) ok for oral LATEX (Verified Allergy, Unknown, 05/15/18) VANCOMYCIN (Verified Allergy, Unknown, 05/15/18) BISACODYL (Verified Adverse Reaction, Severe, Rash, 05/15/18) Uncoded Allergies: IODINE CONTRAST (Allergy, Unknown, 05/15/18) TAPE (Allergy, Unknown, 05/15/18) Objective Last 24 Hour Vital Signs Date Time Temp Pulse Resp B/P (MAP) Pulse Ox O2 Delivery O2 Flow Rate FiO2 03/20/19 08:00 97.7 88 16 100/55 (70) 92 03/20/19 04:00 98.7 86 17 127/75 (92) 03/20/19 04:00 86 17 97 03/20/19 00:00 98.9 96 18 132/78 (96) 03/20/19 00:00 96 18 95 03/19/19 21:00 Room Air 03/19/19 20:00 98.4 86 17 125/74 (91) 03/19/19 20:00 86 17 97 03/19/19 16:00 98.1 87 118/77 (91) 03/19/19 16:00 87 20 98 03/19/19 12:00 86 18 97 03/19/19 12:00 98.0 20 132/80 (97) Intake and Output 03/19/19 03/20/19 19:00 07:00 Intake Total 840 ml 590 ml Balance 840 ml 590 ml Intake Oral 840 ml 480 ml IV Total 110 ml # Voids 2 2 Laboratory Tests 03/20/19 02:00: Urine Color Pale yellow, Urine Appearance Clear, Urine pH 7, Urine Specific [place] 1.010, Urine Protein Negative, Urine Glucose (UA) Negative, Urine Ketones Negative, Urine Blood Negative, Urine Nitrite Negative, Urine Bilirubin Negative, Urine Urobilinogen Normal, Urine Leukocyte Esterase Negative 03/20/19 05:20: Iron Level 77, Total Iron Binding Capacity 239L, Percent Iron Saturation 32, Unsaturated Iron Binding 162, Vitamin B12 Level 301, Folate 11.5 Height (Feet): 5 Height (Inches): 5.00 Weight (Pounds): 219 General Appearance: alert EENT: normal ENT inspection Neck: supple Cardiovascular: normal rate Respiratory/Chest: decreased breath sounds Abdomen: normal bowel sounds, non tender, soft Extremities: non-tender Moshe Terrazas MD Mar 20, 2019 11:46
[2019-03-20 12:00] VITALS: BP 98/77
[2019-03-20 16:00] VITALS: BP 98/65
[2019-03-20 20:00] VITALS: BP 100/61
[2019-03-20] MEDS: Miralax 17gm pkt ORAL SCH (20:17)
[2019-03-21] VITALS: BP 99/50
[2019-03-21] MEDS ORDERED: HYDROmorphone 1mg/ml Carpuject SUBQ PRN (02:45)
[2019-03-21] MEDS ORDERED: Doxycycline Monohydrate 100mg ORAL SCH ×2 (02:45→09:00)
[2019-03-21 04:00] VITALS: BP 100/66
[2019-03-21] MEDS ORDERED: Doxycycline Hyclate 100 MG in D5W 110 ML IV SCH (04:00)
[2019-03-21] MEDS: Doxycycline Monohydrate 100mg ORAL SCH ×2 (04:32→09:56)
[2019-03-21] MEDS ORDERED: NS 500ML ONE (06:25)
[2019-03-21] MEDS ORDERED: NS 275ml ONE (06:38)
[2019-03-21 07:16] LABS: ANION GAP 10 mmol/L (5-15); BLOOD UREA NITROGEN 14 mg/dL (7-18); CALCIUM 8.4 MG/DL (8.5-10.1); CARBON DIOXIDE 24 MMOL/L (21-32); CHLORIDE 104 MMOL/L (98-107); CREATININE 0.8 MG/DL (0.55-1.30); POTASSIUM 3.9 MMOL/L (3.5-5.1); SODIUM 138 MMOL/L (136-145)
[2019-03-21 07:32] LABS: BASOPHILS % (AUTO) 1.1 % (0.0-2.0); EOSINOPHILS % (AUTO) 4.3 % (0.0-3.0); HEMATOCRIT 35.6 % (37.0-47.0); HEMOGLOBIN 11.8 G/DL (12.0-16.0); LYMPHOCYTES % (AUTO) 34.7 % (20.0-45.0); MEAN CORPUSCULAR VOLUME 82 FL (80-99); MONOCYTES % (AUTO) 7.5 % (1.0-10.0); NEUTROPHILS % (AUTO) 52.4 % (45.0-75.0); PLATELET COUNT 327 K/UL (150-450); RED BLOOD COUNT 4.34 M/UL (4.20-5.40); RED CELL DISTRIBUTION WIDTH 12.8 % (11.6-14.8); WHITE BLOOD COUNT 12.1 K/UL (4.8-10.8)
[2019-03-21 08:00] VITALS: BP 99/54
[2019-03-21 08:47] LABS: ALANINE AMINOTRANSFERASE 27 U/L (12-78); ALBUMIN 2.7 G/DL (3.4-5.0); ALKALINE PHOSPHATASE 77 U/L (46-116); ASPARTATE AMINO TRANSFERASE 34 U/L (15-37); BILIRUBIN,DIRECT < 0.1 MG/DL (0.0-0.3); BILIRUBIN,TOTAL < 0.1 MG/DL (0.2-1.0)
[2019-03-21] MEDS: cefTRIAXone 1 GM in NS 55 ML IVPB SCH (09:00)
[2019-03-21] MEDS: Heparin 5000 units/ml inj SUBQ SCH (09:00)
--- NOTE | 2019-03-21 09:07 | General Progress Note ---
Assessment/Plan Assessment/Plan: (1) Right axillary wound reconstruction status post excision of hidradenitis with flap reconstruction with a postoperative wound infection (2) S/p Debridement of right axillary wound and closure (3) Right Axilla pain Patient will be continued on Dilaudid and Percocet D/w Dr. Long and he concurred. Subjective Date patient seen: Mar 21, 2019 Time patient seen: 08:00 Constitutional: Reports: no symptoms HEENT: Reports: no symptoms Cardiovascular: Reports: no symptoms Respiratory: Reports: no symptoms Gastrointestinal/Abdominal: Reports: no symptoms Genitourinary: Reports: no symptoms Neurologic/Psychiatric: Reports: no symptoms Endocrine: Reports: no symptoms Hematologic/Lymphatic: Reports: no symptoms Allergies: Coded Allergies: SILVER (Verified Allergy, Mild, 06/13/18) AZATHIOPRINE (Verified Allergy, Unknown, 05/15/18) DOCUSATE (Verified Allergy, Unknown, 05/15/18) ok for oral LATEX (Verified Allergy, Unknown, 05/15/18) VANCOMYCIN (Verified Allergy, Unknown, 05/15/18) BISACODYL (Verified Adverse Reaction, Severe, Rash, 05/15/18) Uncoded Allergies: IODINE CONTRAST (Allergy, Unknown, 05/15/18) TAPE (Allergy, Unknown, 05/15/18) Subjective Pain has been tolerated on the Dilaudid and Percocet. 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 No RX needed for discharge. Objective Last 24 Hour Vital Signs Date Time Temp Pulse Resp B/P (MAP) Pulse Ox O2 Delivery O2 Flow Rate FiO2 03/21/19 08:00 97.9 97 20 99/54 (69) 97 03/21/19 04:00 98.6 94 20 100/66 (77) 96 03/21/19 00:00 98.6 90 18 99/50 (66) 95 03/20/19 21:00 Room Air 03/20/19 20:00 99.3 90 16 100/61 (74) 98 03/20/19 16:00 98.5 87 18 98/65 (76) 93 03/20/19 12:00 18 03/20/19 12:00 98.1 87 18 98/77 (84) 93 Intake and Output 03/20/19 03/21/19 19:00 07:00 Intake Total 2710 ml 1200 ml Output Total 600 ml Balance 2110 ml 1200 ml Intake Oral 2600 ml 1200 ml IV Total 110 ml Output Urine Total 600 ml Laboratory Tests 03/21/19 05:15: Sodium Level 138, Potassium Level 3.9, Chloride Level 104, Carbon Dioxide Level 24, Anion Gap 10, Blood Urea Nitrogen 14, Creatinine 0.8, Estimat Glomerular Filtration Rate > 60, Glucose Level 107H, Calcium Level 8.4L, Total Bilirubin < 0.1L, Direct Bilirubin < 0.1, Aspartate Amino Transf (AST/SGOT) 34, Alanine Aminotransferase (ALT/SGPT) 27, Alkaline Phosphatase 77, Total Protein 6.8, Albumin 2.7L 03/21/19 06:56: Sodium Level [Pending], Potassium Level [Pending], Chloride Level [Pending], Carbon Dioxide Level [Pending], Blood Urea Nitrogen [Pending], Creatinine [ Pending], Estimat Glomerular Filtration Rate [Pending], Glucose Level [Pending] , Calcium Level [Pending], White Blood Count 12.1H, Red Blood Count 4.34, Hemoglobin 11.8L, Hematocrit 35.6L, Mean Corpuscular Volume 82, Mean Corpuscular Hemoglobin 27.3, Mean Corpuscular Hemoglobin Concent 33.2, Red Cell Distribution Width 12.8, Platelet Count 327, Mean Platelet Volume 5.6L, Neutrophils (%) (Auto) 52.4, Lymphocytes (%) (Auto) 34.7, Monocytes (%) (Auto) 7.5, Eosinophils (%) (Auto) 4.3H, Basophils (%) (Auto) 1.1, Globulin [Pending] Height (Feet): 5 Height (Inches): 5.00 Weight (Pounds): 219 Objective General Appearance: no apparent distress, alert EENT: PERRL/EOMI, normal ENT inspection Neck: non-tender, normal alignment Respiratory/Chest: lungs clear, normal breath sounds Abdomen: normal bowel sounds, non tender Extremities: other - right axilla wound noted Edema: no edema noted Generalized Neurologic: alert, oriented x 3 Skin: normal pigmentation Hao Aldana Mar 21, 2019 09:07
[2019-03-21] MEDS ORDERED: DOXYCYCLINE HY100 M6 PO (09:19)
[2019-03-21] MEDS ORDERED: CEPHALEXIN500 MG ORAL (09:19)
--- NOTE | 2019-03-21 09:20 | Discharge Summary ---
Discharge Summary Hospital Course Date of Admission Mar 15, 2019 at 14:40 Date of Discharge 03/21/2019 Admitting Diagnosis cellulitis, intractible pain HPI Kenzie Caruso is a 23 year old female who was admitted on Mar 15, 2019 at 14:40 for Cellulitis, Intractible Pain Consultations Plastic surgery:Patty, ID: [id number], GI:Vosoghi, pain management Procedures Debridement of right axillary wound and closure Hospital Course 23 year old female with right axillary infection, hidradenitis suppurativa s/p debridement on 01/22/19, s/p wound vac and flap closure by Dr. Brambila now presents with severe intractable pain, greenish foul smelling discharge, possible sinus tract in the posterior axilla. # Right axillary wound reconstruction status post excision of hidradenitis with flap reconstruction with a postoperative wound infection #POD #3 s/p debridement and closure. Plastic surgery consult Dr Brambila, appreciate recs IV antibiotics with ceftriaxone and Bactrim. day 4. DCed Bactrim due to allergy , started doxycycline 03/18. Discharge on Keflex and doxycycline for 7 days. ID consult follow up OR cultures Wound care GI consult to make sure no Crohns flare, patient is concerned. continue lactulose for constipation, B12 and folate normal vte ppx: scd boots, early ambulation disposition: sd home 03/21, spoke to regarding setting on home health for wound care. Set up with [employer] Patient has pain medications at home, and she has an appt with her pain specialist tomorrow I spent 40 minutes on this encounter. Greater than 50% spent on counselling and care coordination. Discharge Medications New Medications: Cephalexin* (Keflex*) 500 Mg Capsule 500 MG ORAL EVERY 12 HOURS for 7 Days, #14 CAP 0 Refills Doxycycline Hyclate (Doxycycline Hyclate) 100 Mg Tablet 100 MG PO Q12HR for 7 Days, #14 TAB Continued Medications: Aripiprazole* (Abilify*) 2 Mg Tablet 5 MG ORAL DAILY Fluoxetine Hcl* (Prozac*) 40 Mg Capsule 40 MG ORAL DAILY for Depression, CAP (This prescription has been renewed) Hydromorphone Hcl (Hydromorphone Hcl) 2 Mg Tablet 2 MG ORAL EVERY 6 HOURS for 4 Days, #20 TAB 0 Refills (This prescription has been renewed) Omeprazole Magnesium (Prilosec Otc) 20 Mg Tablet.dr 20 MG ORAL DAILY, TAB (This prescription has been renewed) Oxycodone Hcl/Acetaminophen 10-325 Mg Tablet (Percocet 10-325 Mg Tablet*) 1 Each Tablet 1 TAB ORAL Q4H PRN for For Pain DISPENSED ON 01/15/19 Discharge Condition Upon Discharge: stable Discharge Disposition Patient was discharged to home with home health Discharge Diagnoses: (1) Intractable pain (2) Wound cellulitis (3) Opioid use disorder, moderate, dependence (4) Constipation (5) Anxiety (6) Crohns disease (7) Depression Isidro Johnson M.D. Mar 21, 2019 09:20
[2019-03-21] MEDS: Lactulose 20gm/30ml UDC ORAL SCH ×2 (09:56→13:00)
--- NOTE | 2019-03-21 11:39 | GI Progress Note ---
Assessment/Plan Problems: (1) Anemia ICD Codes: D64.9 - Anemia, unspecified SNOMED: 310960126 (2) Hidradenitis axillaris ICD Codes: L73.2 - Hidradenitis suppurativa SNOMED: 219531511 (3) Crohns disease ICD Codes: K50.90 - Crohn's disease, unspecified, without complications SNOMED: 76613987 (4) Anxiety ICD Codes: F41.9 - Anxiety disorder, unspecified SNOMED: 18783118 (5) Therapeutic opioid-induced constipation (OIC) ICD Codes: K59.03 - Drug induced constipation; T40.2X5A - Adverse effect of other opioids, initial encounter SNOMED: 695852757704572 Status: stable Status Narrative Discussed with Dr. Terrazas. Assessment/Plan Patient scheduled for discharge today bowel regimen abx wound care needs out patient fu with primary GI for Remicade The patient was seen and examined at bedside and all new and available data was reviewed in the patients chart. I agree with the above findings, impression and plan. (Patient seen earlier today. Signature stamp does not reflect patient encounter time.). - Moshe Terrazas MD Subjective Gastrointestinal/Abdominal: Reports: no symptoms Objective Last 24 Hour Vital Signs Date Time Temp Pulse Resp B/P (MAP) Pulse Ox O2 Delivery O2 Flow Rate FiO2 03/21/19 09:00 Room Air 03/21/19 08:00 97.9 97 20 99/54 (69) 97 03/21/19 04:00 98.6 94 20 100/66 (77) 96 03/21/19 00:00 98.6 90 18 99/50 (66) 95 03/20/19 21:00 Room Air 03/20/19 20:00 99.3 90 16 100/61 (74) 98 03/20/19 16:00 98.5 87 18 98/65 (76) 93 03/20/19 12:00 18 03/20/19 12:00 98.1 87 18 98/77 (84) 93 Intake and Output 03/20/19 03/21/19 19:00 07:00 Intake Total 2710 ml 1200 ml Output Total 600 ml Balance 2110 ml 1200 ml Intake Oral 2600 ml 1200 ml IV Total 110 ml Output Urine Total 600 ml Laboratory Tests Test 03/21/19 05:15 03/21/19 06:56 Sodium Level 138 MMOL/L (136-145) Pending Potassium Level 3.9 MMOL/L (3.5-5.1) Pending Chloride Level 104 MMOL/L (98-107) Pending Carbon Dioxide Level 24 MMOL/L (21-32) Pending Anion Gap 10 mmol/L (5-15) Blood Urea Nitrogen 14 mg/dL (7-18) Pending Creatinine 0.8 MG/DL (0.55-1.30) Pending Estimat Glomerular Filtration Rate > 60 mL/min (>60) Pending Glucose Level 107 MG/DL (74-106) H Pending Calcium Level 8.4 MG/DL (8.5-10.1) L Pending Total Bilirubin < 0.1 MG/DL (0.2-1.0) L Direct Bilirubin < 0.1 MG/DL (0.0-0.3) Aspartate Amino Transf (AST/SGOT) 34 U/L (15-37) Alanine Aminotransferase (ALT/SGPT) 27 U/L (12-78) Alkaline Phosphatase 77 U/L (46-116) Total Protein 6.8 G/DL (6.4-8.2) Albumin 2.7 G/DL (3.4-5.0) L White Blood Count 12.1 K/UL (4.8-10.8) H Red Blood Count 4.34 M/UL (4.20-5.40) Hemoglobin 11.8 G/DL (12.0-16.0) L Hematocrit 35.6 % (37.0-47.0) L Mean Corpuscular Volume 82 FL (80-99) Mean Corpuscular Hemoglobin 27.3 PG (27.0-31.0) Mean Corpuscular Hemoglobin Concent 33.2 G/DL (32.0-36.0) Red Cell Distribution Width 12.8 % (11.6-14.8) Platelet Count 327 K/UL (150-450) Mean Platelet Volume 5.6 FL (6.5-10.1) L Neutrophils (%) (Auto) 52.4 % (45.0-75.0) Lymphocytes (%) (Auto) 34.7 % (20.0-45.0) Monocytes (%) (Auto) 7.5 % (1.0-10.0) Eosinophils (%) (Auto) 4.3 % (0.0-3.0) H Basophils (%) (Auto) 1.1 % (0.0-2.0) Globulin Pending Height (Feet): 5 Height (Inches): 5.00 Weight (Pounds): 219 General Appearance: no apparent distress, alert Cardiovascular: normal rate Respiratory/Chest: normal breath sounds Abdominal Exam: soft Joy Malone HAND WASHER Mar 21, 2019 11:39
[2019-03-21 12:00] VITALS: BP 125/66
== END 2019-03-21 13:40 | disposition home or self-care (01) | DRG 902 ==
LOC: EMR 12:50 → 3E 14:40 → EDBEDREQ 17:04 → 3E 21:40
DX: T81.31XA Disruption of external operation (surgical) wound, not elsewhere classified, initial encounter (principal); K50.90 Crohn's disease, unspecified, without complications; F11.20 Opioid dependence, uncomplicated; Y83.8 Other surgical procedures as the cause of abnormal reaction of the patient, or of later complication, without mention of misadventure at the time of the procedure; L73.2 Hidradenitis suppurativa; Z88.1 Allergy status to other antibiotic agents; Z88.8 Allergy status to other drugs, medicaments and biological substances; F32.9 Major depressive disorder, single episode, unspecified; F41.9 Anxiety disorder, unspecified; K59.03 Drug induced constipation; T40.2X5A Adverse effect of other opioids, initial encounter; M79.621 Pain in right upper arm
CPT/HCPCS: 36415; 80048; 80076; 81003; 82607; 82746; 83540; 83550; 85025; 85651; 86140; 87040; 94003; 94150; 96374; 96375; 99285; J2250; J2405; J2765; J3490